=== PATIENT | male | born 1960 | race African-American/Black ===

== ENCOUNTER 2016-11-04 14:10 | Inpatient (IN) ==
[2016-11-04] MEDS ORDERED: Ipratropium/Albuterol Neb 3 ML IH ONE (14:13)
--- NOTE | 2016-11-04 14:14 | Emergency Department Note ---
Disposition Clinical Impression: Sepsis, Pneumonia Disposition: Admitted As Inpatient General Adult HPI - General Chief complaint: ED Shortness of Breath/Dyspnea Stated complaint: sob Time Seen by Provider: 11/04/16 14:11 - Related Data Home Medications Medication Instructions Recorded Confirmed Buspirone HCl [Buspar] 7.5 mg PO BID 04/21/16 11/04/16 Gabapentin 600 mg PO TID 04/21/16 11/04/16 SUMAtriptan Succinate [Imitrex] 100 mg PO DAILY PRN 04/21/16 11/04/16 lamoTRIgine [Lamictal] 75 mg PO BID 04/21/16 11/04/16 Ipratropium/Albuterol Neb [Duoneb] 3 ml IH Q6HR PRN 07/21/16 11/04/16 Tiotropium [Spiriva] 1 cap IH DAILY 07/21/16 11/04/16 Metoprolol Succinate 100 mg PO DAILY 09/05/16 11/04/16 Albuterol Sulfate [Albuterol 2 puff IH Q6H PRN 09/08/16 11/04/16 Inhaler] Budesonide/Formoterol 160/4.5 2 puff IH BIDR 09/08/16 11/04/16 [Symbicort 160/4.5] Temazepam [Restoril] 15 mg PO HS 09/14/16 11/04/16 Zolpidem [Ambien] 5 mg PO HS 09/14/16 11/04/16 OxyCODONE/APAP 10/325 [Percocet 1 each PO Q4HR PRN 10/22/16 11/04/16 10/325 MG] Lidocaine/Prilocaine CREAM [Emla] 5 gm TP AD PRN 11/04/16 11/04/16 Previous Rx's Medication Instructions Recorded Dexamethasone [Decadron] 4 mg PO AD 10 Days 09/28/16 Folic Acid 1 mg PO DAILY #30 tablet 09/28/16 Loratadine [Claritin] 10 mg PO AD #60 tablet 09/28/16 Omeprazole [PriLOSEC] 20 mg PO DAILY #30 capsule 09/28/16 Ondansetron [Zofran] 8 mg PO Q8HR PRN #90 tablet 09/28/16 Prochlorperazine Maleate 10 mg PO Q6HR PRN #60 tablet 09/28/16 [Compazine] Oxymetazoline [Afrin] 15 spray NS AD PRN #1 bottle 10/06/16 Guaifenesin [Guaifenesin ER] 1,200 mg PO BID #60 tab.er.12h 10/22/16 OLANZapine [Zyprexa] 2.5 mg PO AD PRN #30 tablet 11/03/16 Allergies Allergy/AdvReac Type Severity Reaction Status Date / Time doxycycline Allergy Rash Verified 10/22/16 16:08 hydrocodone [From Vicodin] Allergy Rash Verified 10/22/16 16:08 lidocaine Allergy Rash Verified 10/22/16 16:08 propoxyphene Allergy Rash Verified 10/22/16 16:08 [From Darvocet-N] morphine patches Allergy Intermediate Rash Uncoded 10/22/16 16:08 Past Medical History - Past Medical History Medical history: Reports: hyperlipidemia, hypertension, other, CVA, cancer, CHF , COPD Surgical history: Reports: herniorrhaphy, orthopedic, other Psychiatric history: Reports: anxiety, depression - Social History Smoking Status: Current every day smoker Smokeless Tobacco Status: No Alcohol use: Reports: occasionally Drug use: Reports: marijuana Course Vital Signs Temperature 98.4 F 11/04/16 14:12 Pulse Rate 94 11/04/16 14:12 Respiratory Rate 24 11/04/16 14:12 Blood Pressure 117/85 11/04/16 14:12 O2 Sat by Pulse Oximetry 95 11/04/16 14:12 Temperature 98.4 F 11/04/16 14:12 Pulse Rate 90 11/04/16 15:54 Respiratory Rate 22 11/04/16 16:30 Blood Pressure 98/73 11/04/16 16:30 O2 Sat by Pulse Oximetry 97 11/04/16 15:54 Oxygen Delivery Oxygen Delivery Nasal Cannula Medical Decision Making - Lab Data Result diagrams: 11/04/16 14:48 11/04/16 14:48 Lab Results 11/04/16 11/04/16 11/04/16 Range/Units 14:48 14:48 14:48 WBC 12.3 H (4.3-11.1) K/mcL RBC 4.90 (4.19-5.50) M/mcL Hgb 14.8 (12.9-16.9) g/dL Hct 44.5 (37.5-50.1) % MCV 90.8 (83.0-100.0) fL MCH 30.2 (28.0-33.3) pg MCHC 33.3 (31.6-35.5) g/dL RDW 13.1 (11.5-14.5) % Plt Count 265 (140-400) K/mcL MPV 9.2 L (9.4-12.4) fL Immature Gran % 0.3 (0-4) % Seg Neutrophils % 53.8 % Lymphocytes % 30.5 % Monocytes % 14.3 % Eosinophils % 0.7 % Basophils % 0.4 % Neutrophils # 6.6 (1.6-8.9) K/mcL Lymphocytes # 3.7 (0.6-4.6) K/mcL Monocytes # 1.8 H (0.0-1.3) K/mcL Eosinophils # 0.1 (0.0-0.6) K/mcL Basophils # 0.1 (0.0-0.2) K/mcL ABG pH (7.32-7.45) pH Units ABG pCO2 (35-45) mmHg ABG pO2 (85-104) mmHg ABG HCO3 (21-27) mEQ/L ABG Total CO2 (20-26) mEq/L ABG O2 Saturation (95-98) % ABG Base Excess (-2.0 to 3.0) mEq/L Liter Flow L/MIN Blood Gas Modality Inspired O2 % Sodium 138 (136-145) mEq/L Potassium 4.9 H (3.5-4.5) mEq/L Chloride 98 (98-109) mEq/L Carbon Dioxide 30 H (19-29) mEq/L BUN 10 (8-26) mg/dL Creatinine 0.85 (0.72-1.25) mg/dL Est GFR ( Amer) > 60 (> 60) Est GFR (Non-Af Amer) > 60 (> 60) BUN/Creatinine Ratio 12 (6-26) Glucose 100 H (70-99) mg/dL Calculated Osmolality 285 (280-300) Lactic Acid 0.9 (0.5-2.2) mmol/L Calcium 10.1 (8.6-10.8) mg/dL Total Bilirubin 0.5 (0.2-1.2) mg/dL Direct Bilirubin 0.2 (0.0-0.5) mg/dL Indirect Bilirubin 0.3 (0.0-1.2) mg/dL AST 13 (5-34) Units/L ALT 8 (0-55) Units/L Alkaline Phosphatase 82 (38-126) Units/L Troponin I (0-0.03) ng/mL B-Natriuretic Peptide (0-100) pg/mL Serum Total Protein 7.7 (6.0-8.3) g/dL Albumin 3.2 L (3.5-5.0) g/dL Globulin 4.5 H (2.4-3.5) g/dL Albumin/Globulin Ratio 0.7 L (1.1-2.2) 11/04/16 11/04/16 11/04/16 Range/Units 14:48 14:48 15:52 WBC (4.3-11.1) K/mcL RBC (4.19-5.50) M/mcL Hgb (12.9-16.9) g/dL Hct (37.5-50.1) % MCV (83.0-100.0) fL MCH (28.0-33.3) pg MCHC (31.6-35.5) g/dL RDW (11.5-14.5) % Plt Count (140-400) K/mcL MPV (9.4-12.4) fL Immature Gran % (0-4) % Seg Neutrophils % % Lymphocytes % % Monocytes % % Eosinophils % % Basophils % % Neutrophils # (1.6-8.9) K/mcL Lymphocytes # (0.6-4.6) K/mcL Monocytes # (0.0-1.3) K/mcL Eosinophils # (0.0-0.6) K/mcL Basophils # (0.0-0.2) K/mcL ABG pH 7.35 (7.32-7.45) pH Units ABG pCO2 57 H (35-45) mmHg ABG pO2 122 H (85-104) mmHg ABG HCO3 31.5 H (21-27) mEQ/L ABG Total CO2 33.2 H (20-26) mEq/L ABG O2 Saturation 99 H (95-98) % ABG Base Excess 4.2 H (-2.0 to 3.0) mEq/L Liter Flow 3 L/MIN Blood Gas Modality NC Inspired O2 32 % Sodium (136-145) mEq/L Potassium (3.5-4.5) mEq/L Chloride (98-109) mEq/L Carbon Dioxide (19-29) mEq/L BUN (8-26) mg/dL Creatinine (0.72-1.25) mg/dL Est GFR ( Amer) (> 60) Est GFR (Non-Af Amer) (> 60) BUN/Creatinine Ratio (6-26) Glucose (70-99) mg/dL Calculated Osmolality (280-300) Lactic Acid (0.5-2.2) mmol/L Calcium (8.6-10.8) mg/dL Total Bilirubin (0.2-1.2) mg/dL Direct Bilirubin (0.0-0.5) mg/dL Indirect Bilirubin (0.0-1.2) mg/dL AST (5-34) Units/L ALT (0-55) Units/L Alkaline Phosphatase (38-126) Units/L Troponin I 0.01 (0-0.03) ng/mL B-Natriuretic Peptide 104 H (0-100) pg/mL Serum Total Protein (6.0-8.3) g/dL Albumin (3.5-5.0) g/dL Globulin (2.4-3.5) g/dL Albumin/Globulin Ratio (1.1-2.2) Attestation Statement - Attestation Attestation: I examined this patient and my medical decision-making was reviewed with the SHRIMP PICKER/PA/Advanced Practice Nurse/Resident Physician. I agree with the documented findings, disposition and treatment plan as described except to the extent set forth below. [id number] time provided Patient complains of dyspnea. Arrives by EMS. Recently treated for pneumonia as an outpatient and has completed his antibiotic therapy. He appears in no acute distress on exam 17:00: 30 mL per KG of IV fluid not provided due to the patient not being hypotensive
--- NOTE | 2016-11-04 14:36 | Emergency Department Note ---
Disposition Clinical Impression: Sepsis Qualifiers: Sepsis type: sepsis due to unspecified organism Qualified Code(s): A41.9 - Sepsis, unspecified organism Pneumonia Qualifiers: Pneumonia type: due to unspecified organism Laterality: left Lung location: unspecified part of lung Qualified Code(s): J18.9 - Pneumonia, unspecified organism Disposition: Admitted As Inpatient Referrals: NO,PCP [Primary Care Provider] - Time of Disposition: 16:15 SOB HPI - General Chief Complaint: ED Shortness of Breath/Dyspnea Stated Complaint: sob Time Seen by Provider: 11/04/16 14:11 Source: patient, EMS Limitations: no limitations Nursing Notes Reviewed: Yes Vital Signs Reviewed: Yes - History of Present Illness Mr. Bliss, 56-year-old male, presents via EMS from [facility] where he is in the initial evaluation phase for suspected pulmonary cancer. He is here over concerns of dyspnea. Onset several weeks ago and acutely worsened just onset just prior to arrival. Patient has history of COPD with no use of home oxygen. He was diagnosed with community acquired pneumonia 2 weeks ago and is finished his 10 day outpatient course of an unknown antibiotic. PMH: Hypertension, hyperlipidemia, diabetes, CAD with ACS-no stents. COPD. CHF with unknown ejection fraction. Habits: Previous tobacco smoker. ROS: Positive: Subjective fever with chills, difficulty breathing, decreased appetite Negative: Chest pains, nausea, vomiting, back pains, palpitations, abdominal pains, unusual cough, productive cough, weakness, increased swelling or changes in weight. - Related Data Home Medications Medication Instructions Recorded Confirmed Buspirone HCl [Buspar] 7.5 mg PO BID 04/21/16 11/04/16 Gabapentin 600 mg PO TID 04/21/16 11/04/16 SUMAtriptan Succinate [Imitrex] 100 mg PO DAILY PRN 04/21/16 11/04/16 lamoTRIgine [Lamictal] 75 mg PO BID 04/21/16 11/04/16 Ipratropium/Albuterol Neb [Duoneb] 3 ml IH Q6HR PRN 07/21/16 11/04/16 Tiotropium [Spiriva] 1 cap IH DAILY 07/21/16 11/04/16 Metoprolol Succinate 100 mg PO DAILY 09/05/16 11/04/16 Albuterol Sulfate [Albuterol 2 puff IH Q6H PRN 09/08/16 11/04/16 Inhaler] Budesonide/Formoterol 160/4.5 2 puff IH BIDR 09/08/16 11/04/16 [Symbicort 160/4.5] Temazepam [Restoril] 15 mg PO HS 09/14/16 11/04/16 Zolpidem [Ambien] 5 mg PO HS 09/14/16 11/04/16 OxyCODONE/APAP 10/325 [Percocet 1 each PO Q4HR PRN 10/22/16 11/04/16 10/325 MG] Lidocaine/Prilocaine CREAM [Emla] 5 gm TP AD PRN 11/04/16 11/04/16 Previous Rx's Medication Instructions Recorded Dexamethasone [Decadron] 4 mg PO AD 10 Days 09/28/16 Folic Acid 1 mg PO DAILY #30 tablet 09/28/16 Loratadine [Claritin] 10 mg PO AD #60 tablet 09/28/16 Omeprazole [PriLOSEC] 20 mg PO DAILY #30 capsule 09/28/16 Ondansetron [Zofran] 8 mg PO Q8HR PRN #90 tablet 09/28/16 Prochlorperazine Maleate 10 mg PO Q6HR PRN #60 tablet 09/28/16 [Compazine] Oxymetazoline [Afrin] 15 spray NS AD PRN #1 bottle 10/06/16 Guaifenesin [Guaifenesin ER] 1,200 mg PO BID #60 tab.er.12h 10/22/16 OLANZapine [Zyprexa] 2.5 mg PO AD PRN #30 tablet 11/03/16 Allergies Allergy/AdvReac Type Severity Reaction Status Date / Time doxycycline Allergy Rash Verified 10/22/16 16:08 hydrocodone [From Vicodin] Allergy Rash Verified 10/22/16 16:08 lidocaine Allergy Rash Verified 10/22/16 16:08 propoxyphene Allergy Rash Verified 10/22/16 16:08 [From Darvocet-N] morphine patches Allergy Intermediate Rash Uncoded 10/22/16 16:08 All systems ED: reviewed and negative except as stated. Past Medical History - Past Medical History Medical history: Reports: hyperlipidemia, hypertension, other, CVA, cancer, CHF , COPD Surgical history: Reports: herniorrhaphy, orthopedic, other Psychiatric history: Reports: anxiety, depression - Social History Smoking Status: Current every day smoker Smokeless Tobacco Status: No Alcohol use: Reports: occasionally Drug use: Reports: marijuana Physical Exam Vital Signs Reviewed General: Patient is alert, oriented, and in no acute distress. HEENT: No facial asymmetry. Head is normocephalic and atraumatic. PERRLA. Trachea midline. Cardiovascular: Heart regular rate and rhythm without clicks, rubs, gallops, or murmurs. No JVD. PMI nondisplaced. No pedal edema. Respiratory: Symmetric chest rise with good respiratory effort. Bilateral breath sounds are have diffuse wheezing and crackles, worse bibasilar. Abdomen: Bowel sounds present normoactive x-4 quadrants. Abdomen is soft, nondistended, and nontender. Psych: Patient's affect is appropriate for situation. - General Limitations: no limitations General appearance: alert, in no apparent distress Course Course Narrative: Patient presents from the cancer center where he is currently in the evaluation phase for suspicious pulmonary nodules. He is concerned regarding difficulty breathing. He was diagnosed with ammonia 2 weeks ago and managed on an outpatient basis with oral antibiotics-unknown antibiotic. He is completed 10 day course. His symptoms have persisted and worsened. Chest x-ray shows worsening pneumonia. On intake, he was SIRS positive - tachypnea, tachycardic. Sepsis workup initiated. Will manage for healthcare associated pneumonia and admit. Will also again do a nebulizer as his wheezing on exam. Supple oxygen as needed. My attending spoke with the admitting hospitalist, Dr. Cantu, who agrees to accept the patient. Vital Signs Temperature 98.4 F 11/04/16 14:12 Pulse Rate 94 11/04/16 14:12 Respiratory Rate 24 11/04/16 14:12 Blood Pressure 117/85 11/04/16 14:12 O2 Sat by Pulse Oximetry 95 11/04/16 14:12 Temperature 98.4 F 11/04/16 14:12 Pulse Rate 90 11/04/16 15:54 Respiratory Rate 24 11/04/16 15:54 Blood Pressure 100/77 11/04/16 15:54 O2 Sat by Pulse Oximetry 97 11/04/16 15:54 Oxygen Delivery Oxygen Delivery Aerosol Mask Shortness of Breath/Dyspnea - Lab Data Result diagrams: 11/04/16 14:48 11/04/16 14:48 Lab Results 11/04/16 11/04/16 11/04/16 Range/Units 14:48 14:48 14:48 WBC 12.3 H (4.3-11.1) K/mcL RBC 4.90 (4.19-5.50) M/mcL Hgb 14.8 (12.9-16.9) g/dL Hct 44.5 (37.5-50.1) % MCV 90.8 (83.0-100.0) fL MCH 30.2 (28.0-33.3) pg MCHC 33.3 (31.6-35.5) g/dL RDW 13.1 (11.5-14.5) % Plt Count 265 (140-400) K/mcL MPV 9.2 L (9.4-12.4) fL Immature Gran % 0.3 (0-4) % Seg Neutrophils % 53.8 % Lymphocytes % 30.5 % Monocytes % 14.3 % Eosinophils % 0.7 % Basophils % 0.4 % Neutrophils # 6.6 (1.6-8.9) K/mcL Lymphocytes # 3.7 (0.6-4.6) K/mcL Monocytes # 1.8 H (0.0-1.3) K/mcL Eosinophils # 0.1 (0.0-0.6) K/mcL Basophils # 0.1 (0.0-0.2) K/mcL ABG pH (7.32-7.45) pH Units ABG pCO2 (35-45) mmHg ABG pO2 (85-104) mmHg ABG HCO3 (21-27) mEQ/L ABG Total CO2 (20-26) mEq/L ABG O2 Saturation (95-98) % ABG Base Excess (-2.0 to 3.0) mEq/L Liter Flow L/MIN Blood Gas Modality Inspired O2 % Sodium 138 (136-145) mEq/L Potassium 4.9 H (3.5-4.5) mEq/L Chloride 98 (98-109) mEq/L Carbon Dioxide 30 H (19-29) mEq/L BUN 10 (8-26) mg/dL Creatinine 0.85 (0.72-1.25) mg/dL Est GFR ( Amer) > 60 (> 60) Est GFR (Non-Af Amer) > 60 (> 60) BUN/Creatinine Ratio 12 (6-26) Glucose 100 H (70-99) mg/dL Calculated Osmolality 285 (280-300) Lactic Acid 0.9 (0.5-2.2) mmol/L Calcium 10.1 (8.6-10.8) mg/dL Total Bilirubin 0.5 (0.2-1.2) mg/dL Direct Bilirubin 0.2 (0.0-0.5) mg/dL Indirect Bilirubin 0.3 (0.0-1.2) mg/dL AST 13 (5-34) Units/L ALT 8 (0-55) Units/L Alkaline Phosphatase 82 (38-126) Units/L Troponin I (0-0.03) ng/mL B-Natriuretic Peptide (0-100) pg/mL Serum Total Protein 7.7 (6.0-8.3) g/dL Albumin 3.2 L (3.5-5.0) g/dL Globulin 4.5 H (2.4-3.5) g/dL Albumin/Globulin Ratio 0.7 L (1.1-2.2) 11/04/16 11/04/16 11/04/16 Range/Units 14:48 14:48 15:52 WBC (4.3-11.1) K/mcL RBC (4.19-5.50) M/mcL Hgb (12.9-16.9) g/dL Hct (37.5-50.1) % MCV (83.0-100.0) fL MCH (28.0-33.3) pg MCHC (31.6-35.5) g/dL RDW (11.5-14.5) % Plt Count (140-400) K/mcL MPV (9.4-12.4) fL Immature Gran % (0-4) % Seg Neutrophils % % Lymphocytes % % Monocytes % % Eosinophils % % Basophils % % Neutrophils # (1.6-8.9) K/mcL Lymphocytes # (0.6-4.6) K/mcL Monocytes # (0.0-1.3) K/mcL Eosinophils # (0.0-0.6) K/mcL Basophils # (0.0-0.2) K/mcL ABG pH 7.35 (7.32-7.45) pH Units ABG pCO2 57 H (35-45) mmHg ABG pO2 122 H (85-104) mmHg ABG HCO3 31.5 H (21-27) mEQ/L ABG Total CO2 33.2 H (20-26) mEq/L ABG O2 Saturation 99 H (95-98) % ABG Base Excess 4.2 H (-2.0 to 3.0) mEq/L Liter Flow 3 L/MIN Blood Gas Modality NC Inspired O2 32 % Sodium (136-145) mEq/L Potassium (3.5-4.5) mEq/L Chloride (98-109) mEq/L Carbon Dioxide (19-29) mEq/L BUN (8-26) mg/dL Creatinine (0.72-1.25) mg/dL Est GFR ( Amer) (> 60) Est GFR (Non-Af Amer) (> 60) BUN/Creatinine Ratio (6-26) Glucose (70-99) mg/dL Calculated Osmolality (280-300) Lactic Acid (0.5-2.2) mmol/L Calcium (8.6-10.8) mg/dL Total Bilirubin (0.2-1.2) mg/dL Direct Bilirubin (0.0-0.5) mg/dL Indirect Bilirubin (0.0-1.2) mg/dL AST (5-34) Units/L ALT (0-55) Units/L Alkaline Phosphatase (38-126) Units/L Troponin I 0.01 (0-0.03) ng/mL B-Natriuretic Peptide 104 H (0-100) pg/mL Serum Total Protein (6.0-8.3) g/dL Albumin (3.5-5.0) g/dL Globulin (2.4-3.5) g/dL Albumin/Globulin Ratio (1.1-2.2)
[2016-11-04] MEDS ORDERED: Azithromycin 500 MG in D5% in Water 250 ML IVPB ONE (14:54)
[2016-11-04 14:58] LABS: Basophils # 0.1 K/mcL (0.0-0.2); Basophils % 0.4 %; Eosinophils # 0.1 K/mcL (0.0-0.6); Eosinophils % 0.7 %; Hematocrit 44.5 % (37.5-50.1); Hemoglobin 14.8 g/dL (12.9-16.9); Immature Granulocytes % 0.3 % (0-4); Lymphocytes # 3.7 K/mcL (0.6-4.6); Lymphocytes % 30.5 %; Mean Corpuscular HGB Conc 33.3 g/dL (31.6-35.5); Mean Corpuscular Hemoglobin 30.2 pg (28.0-33.3); Mean Corpuscular Volume 90.8 fL (83.0-100.0); Mean Platelet Volume 9.2 fL (9.4-12.4); Monocytes # 1.8 K/mcL (0.0-1.3); Monocytes % 14.3 %; Neutrophils # 6.6 K/mcL (1.6-8.9); Platelet Count 265 K/mcL (140-400); Red Cell Distribution Width 13.1 % (11.5-14.5); Segmented Neutrophils % 53.8 %
[2016-11-04 15:11] LABS: Alanine Aminotransferase 8 Units/L (0-55); Albumin 3.2 g/dL (3.5-5.0); Albumin/Globulin Ratio 0.7 (1.1-2.2); Alkaline Phosphatase 82 Units/L (38-126); Aspartate Amino Transferase 13 Units/L (5-34); BUN/Creatinine Ratio 12 (6-26); Bilirubin,Direct 0.2 mg/dL (0.0-0.5); Bilirubin,Indirect 0.3 mg/dL (0.0-1.2); Bilirubin,Total 0.5 mg/dL (0.2-1.2); Blood Urea Nitrogen 10 mg/dL (8-26); Calcium 10.1 mg/dL (8.6-10.8); Carbon Dioxide 30 mEq/L (19-29); Chloride 98 mEq/L (98-109); Globulin 4.5 g/dL (2.4-3.5); Glucose 100 mg/dL (70-99); Osmolality,Calculated 285 (280-300); Potassium 4.9 mEq/L (3.5-4.5); Sodium 138 mEq/L (136-145); Total Protein 7.7 g/dL (6.0-8.3); eGFR For African Americans > 60 (> 60); eGFR For Non-African Americans > 60 (> 60)
[2016-11-04] MEDS ORDERED: Vancomycin 1,000 MG in D5% in Water 250 ML IVPB ONE (15:37)
[2016-11-04] MEDS ORDERED: methylPREDNISolone 125 MG/2 ML VIAL IVP ONE (15:37)
[2016-11-04] MEDS ORDERED: Piperacillin/Tazobactam 3.375 GM in D5% in Water (Mini-Bag+) 100 ML IVPB ONE (15:37)
[2016-11-04 15:58] LABS: ABG Base Excess 4.2 mEq/L (-2.0 to 3.0); ABG HCO3 31.5 mEQ/L (21-27); ABG Oxygen Saturation 99 % (95-98); ABG PCO2 57 mmHg (35-45); ABG PH 7.35 pH Units (7.32-7.45); ABG PO2 122 mmHg (85-104); ABG TCO2 33.2 mEq/L (20-26); Blood Gas FiO2 32 %; Blood Gas Liter Flow 3 L/MIN
[2016-11-04] MEDS ORDERED: *HR* Promethazine 25 MG/ML VIAL IVP PRN (16:19)
[2016-11-04] MEDS ORDERED: Naloxone 0.4 MG/ML INJ IVP PRN (16:19)
[2016-11-04] MEDS ORDERED: *HR* HYDROmorphone (PF) 1 MG/ML SYRINGE IVP ONE (16:31)
--- NOTE | 2016-11-04 16:40 | Internal Med History&Physical ---
<Raheel Cardenas - Last Filed: 11/04/16 20:02> Date of Encounter: 11/04/16 Time of Encounter: 16:38 Assessment and Plan (1) Acute respiratory failure Current visit: Yes Status: Acute Due to COPD exacerbation related to pneumonia. Saturation improved with supplemental oxygen, continue to supplement to keep saturation above 88%. Qualifiers: Respiratory failure complication: hypoxia Qualified Code(s): J96.01 - Acute respiratory failure with hypoxia (2) Sepsis Current visit: Yes Status: Acute Patient presents with leukocytosis and tachypnea with presumed source of pneumonia. Antibiotics initiated, blood cultures drawn, 30cc/kg fluid bolus ordered, initial lactate and repeat negative. Qualifiers: Sepsis type: sepsis due to unspecified organism Qualified Code(s): A41.9 - Sepsis, unspecified organism (3) Pneumonia Current visit: Yes Status: Acute Healthcare associated due to patient currently undergoing chemotherapy. Failed out patient therapy. Will treat with vancomycin, zosyn, levaquin. Strep and legionella urinary antigen, sputum culture ordered Qualifiers: Pneumonia type: due to unspecified organism Laterality: left Lung location: unspecified part of lung Qualified Code(s): J18.9 - Pneumonia, unspecified organism (4) COPD exacerbation Current visit: No Status: Acute Due to pneumonia as discussed above. Will treat with antibiotics, IV steroids, scheduled bronchodilators. (5) Primary lung cancer with metastasis from lung to other site Current visit: No Status: Acute Stage IV with brain mets, currently undergoing chemotherapy. Continue treatment as outpatient Qualifiers: Laterality: left Qualified Code(s): C34.92 - Malignant neoplasm of unspecified part of left bronchus or lung (6) Cancer associated pain Current visit: Yes Status: Acute Significant pain that has been difficult to control as an outpatient. Patient takes percocet 10/325mg q4h as outpatient. Using opiate equivalence and cross tolerance we will start IV dilaudid at 1mg q2h prn. Plan to transition to long acting pain management with breakthrough coverage based on pain needs. (7) Essential hypertension Current visit: No Status: Chronic Blood pressure mildly low, will hold home beta jade (8) DVT prophylaxis Current visit: No Status: Acute Lovenox 40mg SQ daily Internal Medicine - H&P: HPI Chief complaint: Dyspnea Admitted From: Emergency Dept Plans for Post Hospital Care: Home History of present illness: Mr. Bliss is a 56 year old male with history of stage IV lung cancer, COPD presents with shortness of breath. Patient reports shortness of breath and cough for the last 2 weeks. Patient presented to his oncologist approximately 10 days ago for chemotherapy and he was sent to the emergency department at that time due to concerns for pneumonia. Admission was recommended at that time the patient refused to be admitted and was discharged on Levaquin. He states that he felt better for a couple days but then continued to decline with worsening shortness of breath and productive cough. His cough is mostly clear but at times have had some thick yellow sputum. Past Med Surg Social Fam HX - Past Medical History Medical history: hyperlipidemia, hypertension, other, CVA, cancer, CHF, COPD Psychiatric history: anxiety, depression - Past Surgical History Surgical History: herniorrhaphy, orthopedic, other - Social History Smoking Status: Current every day smoker Smokeless Tobacco Status: No Alcohol use: occasionally Drug use: marijuana - Family History Father Adopted: No Family Member Ethnicity: Non- Living Status: Hx Family Cancer: Yes Internal Medicine - H&P: Meds Buspirone HCl [Buspar] 7.5 mg PO BID 04/21/16 [History] Gabapentin 600 mg PO TID 04/21/16 [History] SUMAtriptan Succinate [Imitrex] 100 mg PO DAILY PRN 04/21/16 [History] lamoTRIgine [Lamictal] 75 mg PO BID 04/21/16 [History] Ipratropium/Albuterol Neb [Duoneb] 3 ml IH Q6HR PRN 07/21/16 [History] Tiotropium [Spiriva] 1 cap IH DAILY 07/21/16 [History] Metoprolol Succinate 100 mg PO DAILY 09/05/16 [History] Albuterol Sulfate [Albuterol Inhaler] 2 puff IH Q6H PRN 09/08/16 [History] Budesonide/Formoterol 160/4.5 [Symbicort 160/4.5] 2 puff IH BIDR 09/08/16 [ History] Temazepam [Restoril] 15 mg PO HS 09/14/16 [History] Zolpidem [Ambien] 5 mg PO HS 09/14/16 [History] Dexamethasone [Decadron] 4 mg PO AD 10 Days 09/28/16 [Rx] Folic Acid 1 mg PO DAILY #30 tablet 09/28/16 [Rx] Loratadine [Claritin] 10 mg PO AD #60 tablet 09/28/16 [Rx] Omeprazole [PriLOSEC] 20 mg PO DAILY #30 capsule 09/28/16 [Rx] Ondansetron [Zofran] 8 mg PO Q8HR PRN #90 tablet 09/28/16 [Rx] Prochlorperazine Maleate [Compazine] 10 mg PO Q6HR PRN #60 tablet 09/28/16 [Rx] Oxymetazoline [Afrin] 15 spray NS AD PRN #1 bottle 10/06/16 [Rx] Guaifenesin [Guaifenesin ER] 1,200 mg PO BID #60 tab.er.12h 10/22/16 [Rx] OxyCODONE/APAP 10/325 [Percocet 10/325 MG] 1 each PO Q4HR PRN 10/22/16 [History] OLANZapine [Zyprexa] 2.5 mg PO AD PRN #30 tablet 11/03/16 [Rx] Lidocaine/Prilocaine CREAM [Emla] 5 gm TP AD PRN 11/04/16 [History] Allergies doxycycline Allergy (Verified 10/22/16 16:08) Rash hydrocodone [From Vicodin] Allergy (Verified 10/22/16 16:08) Rash lidocaine Allergy (Verified 10/22/16 16:08) Rash propoxyphene [From Darvocet-N] Allergy (Verified 10/22/16 16:08) Rash morphine patches Allergy (Intermediate, Uncoded 10/22/16 16:08) Rash All Systems PM: A 10-system review of systems was performed and is negative for pertinent findings except as documented above in the HPI. - Constitutional Constitutional: no chills, no fever(s) - EENT Eyes: no blurry vision, no change in vision Nose, mouth and throat: sinus pain, sinus pressure, no sore throat - Cardiovascular Cardiovascular ROS IM: dyspnea, dyspnea on exertion, no chest pain, no edema, no lightheadedness, no syncope - Respiratory Respiratory: cough, dyspnea, wheezing, chest congestion, excessive phlegm production, change in phlegm color, no hemoptysis - Gastrointestinal Gastrointestinal: no abdominal pain, no diarrhea, no nausea, no vomiting - Genitourinary Genitourinary ROS male: no urinary frequency, no urinary hesitancy, no urinary incontinence - Musculoskeletal Musculoskeletal ROS IM: arthralgias, no numbness, no tingling - Integumentary Integumentary IM: no new lesions - Neurological Neurological ROS: no confusion, no dizziness, no numbness, no weakness - Psychiatric Psychiatric: anxiety, no confusion - Constitutional Vitals: Temp Pulse Resp BP Pulse Ox 98.4 F 90 24 100/77 97 11/04/16 14:12 11/04/16 15:54 11/04/16 15:54 11/04/16 15:54 11/04/16 15:54 General appearance: Present: A&O X 3, pleasant, no acute distress Exam: Slightly somnolent. - Head Head exam: Present: atraumatic, normal inspection, normocephalic - Eye Eye exam: Present: EOMI, PERRL - ENT ENT exam: Present: mucous membranes dry - Respiratory Respiratory exam: Present: decreased breath sounds, rhonchi, wheezes. Absent: rales, tachypnea - Cardiovascular Cardiovascular exam: Present: RRR. Absent: gallop, rubs, systolic murmur - GI/Abdominal GI/Abdominal exam: Present: normal bowel sounds, soft. Absent: distended, tenderness - Extremities Exam Extremities exam: Present: warm. Absent: pedal edema, tenderness - Neurological Exam Neurological exam: Present: alert, CN II-XII intact, oriented X3, no focal deficits - Skin Skin exam: Present: dry, intact, warm Internal Med - H&P Results - Labs CBC & Chem 7: 11/04/16 14:48 11/04/16 14:48 <Celestine Stevens - Last Filed: 11/05/16 16:11> Date of Encounter: 11/04/16 Internal Medicine - H&P: HPI History of present illness: Mr. Bliss is a 56 year old male [employer] PM: A 10-system review of systems was performed and is negative for pertinent findings except as documented above in the HPI. - Constitutional Vitals: Temp Pulse Resp BP Pulse Ox 97.7 F 114 16 102/69 92 11/05/16 16:02 11/05/16 16:02 11/05/16 16:02 11/05/16 16:02 11/05/16 16:02 Internal Med - H&P Results - Labs CBC & Chem 7: 11/05/16 05:07 11/05/16 05:07 - Attending Attestation I examined this patient and my medical decision-making was reviewed with the Resident Physician on 11/04/16. I agree with the documented findings, disposition and treatment plan as described except to the extent set forth below. Please see event note of 11/04/16 for attestation.
[2016-11-04] MEDS ORDERED: Vancomycin 1,000 MG in D5% in Water 250 ML IVPB SCH (17:00)
[2016-11-04] MEDS: methylPREDNISolone 125 MG/2 ML VIAL IVP SCH (17:55)
[2016-11-04] MEDS ORDERED: 0.9 % Sodium Chloride 1,000 ML IVC ONE ×2 (18:14→20:05)
[2016-11-04] MEDS ORDERED: 0.9 % Sodium Chloride 1,000 ML IVC SCH (18:30)
[2016-11-04] MEDS ORDERED: Vancomycin 1,250 MG in D5% in Water 250 ML IVPB ONE (19:00)
--- NOTE | 2016-11-04 19:36 | Event Note ---
Date of Encounter: 11/04/16 Time of Encounter: 19:31 I examined this patient and my medical decision-making was reviewed with the Resident Physician on 11/04/16. I agree with the documented findings, disposition and treatment plan as described in the H&P of this date except to the extent set forth below. Mr. Bliss is currently admitted for acute exac COPD. He has hx of lung cancer. Symptoms have been present for about 2 weeks. He had been on Levaquin at home but continued to worsen and came to ED. He was subsequently admitted. Currently he is somewhat better with treatment. Exam Alert. Comfortable Heart reg and not tachy Wheezing present. Abd soft I/P 1. Acute on chronic resp failure with hypoxia 2. Sepsis 3. Lung cancer Further diagnoses and plan per H&P.
[2016-11-04] MEDS: Ipratropium/Albuterol Neb 3 ML IH SCH ×2 (19:53→23:09)
[2016-11-04] MEDS: Budesonide/Formoterol 160/4.5 MDI IH SCH (19:53)
[2016-11-04] MEDS: lamoTRIgine 25 MG TABLET PO SCH (20:17)
[2016-11-04] MEDS: Gabapentin 300 MG CAPSULE PO SCH (20:18)
[2016-11-04] MEDS ORDERED: Temazepam 15 MG CAPSULE PO SCH (21:00)
[2016-11-04] MEDS: *HR* HYDROmorphone (PF) 1 MG/ML SYRINGE IVP PRN (21:13)
[2016-11-04] MEDS: Levofloxacin 750 MG/150 ML 750 MG/150 ML BAG IVPB SCH (21:23)
[2016-11-05] MEDS: methylPREDNISolone 125 MG/2 ML VIAL IVP SCH ×4 (00:10→23:46)
[2016-11-05] MEDS: Piperacillin/Tazobactam 3.375 GM in D5% in Water (Mini-Bag+) 100 ML IVPB SCH ×3 (02:01→17:48)
[2016-11-05] MEDS: Ipratropium/Albuterol Neb 3 ML IH SCH ×6 (03:42→23:34)
[2016-11-05 05:28] LABS: Basophils % 0.2 %; Hematocrit 37.7 % (37.5-50.1); INR 1.3; Immature Granulocytes % 0.6 % (0-4); Lymphocytes # 1.3 K/mcL (0.6-4.6); Lymphocytes % 25.6 %; Mean Corpuscular HGB Conc 32.6 g/dL (31.6-35.5); Mean Corpuscular Hemoglobin 29.4 pg (28.0-33.3); Mean Corpuscular Volume 90.2 fL (83.0-100.0); Mean Platelet Volume 9.1 fL (9.4-12.4); Monocytes # 0.1 K/mcL (0.0-1.3); Monocytes % 1.6 %; Neutrophils # 3.5 K/mcL (1.6-8.9); Platelet Count 229 K/mcL (140-400); Prothrombin Time 14.3 Seconds (9.4-12.1); Red Blood Count 4.18 M/mcL (4.19-5.50)
[2016-11-05 05:31] LABS: Hemoglobin 12.3 g/dL (12.9-16.9)
[2016-11-05 05:41] LABS: Alanine Aminotransferase 7 Units/L (0-55); Albumin 2.6 g/dL (3.5-5.0); Albumin/Globulin Ratio 0.7 (1.1-2.2); Alkaline Phosphatase 71 Units/L (38-126); Aspartate Amino Transferase 11 Units/L (5-34); BUN/Creatinine Ratio 12 (6-26); Bilirubin,Direct 0.1 mg/dL (0.0-0.5); Bilirubin,Indirect 0.1 mg/dL (0.0-1.2); Bilirubin,Total 0.2 mg/dL (0.2-1.2); Blood Urea Nitrogen 10 mg/dL (8-26); Carbon Dioxide 27 mEq/L (19-29); Chloride 104 mEq/L (98-109); Globulin 3.9 g/dL (2.4-3.5); Glucose 219 mg/dL (70-99); Magnesium 1.5 mg/dL (1.6-2.6); Osmolality,Calculated 292 (280-300); Phosphorous 2.9 mg/dL (2.3-4.7); Potassium 4.2 mEq/L (3.5-4.5); Sodium 138 mEq/L (136-145); Total Protein 6.5 g/dL (6.0-8.3); eGFR For African Americans > 60 (> 60); eGFR For Non-African Americans > 60 (> 60)
[2016-11-05] MEDS: *HR* Enoxaparin 40 MG/0.4 ML SYRINGE SQ SCH (06:07)
[2016-11-05] MEDS: Gabapentin 300 MG CAPSULE PO SCH ×3 (08:03→20:24)
[2016-11-05] MEDS: lamoTRIgine 25 MG TABLET PO SCH ×2 (08:03→20:22)
[2016-11-05 08:04] LABS: Bilirubin,Urine Negative (Negative); Blood,Urine Negative (Negative); Clarity,Urine Clear (Clear); Color,Urine Yellow (Yellow); Glucose,Urine (UA) Normal (Normal); Ketones,Urine Negative (Negative); Leukocyte Esterase,Urine Negative (Negative); Nitrite,Urine Negative (Negative); PH,Urine 6.5 pH Units (5.0-8.0); Protein,Urine Negative (Neg-Trace); Specific Gravity,Urine 1.009 (1.010-1.025); Urobilinogen,Urine Normal (Normal)
[2016-11-05] MEDS: Folic Acid 1 MG TABLET PO SCH (08:04)
[2016-11-05] MEDS: Vancomycin 1,000 MG in D5% in Water 250 ML IVPB SCH ×2 (08:04→17:49)
[2016-11-05] MEDS: Levofloxacin 750 MG/150 ML 750 MG/150 ML BAG IVPB SCH (08:04)
[2016-11-05] MEDS ORDERED: Magnesium Sulfate 2 GM in D5% in Water 100 ML IVPB ONE (08:17)
[2016-11-05] MEDS: *HR* HYDROmorphone (PF) 1 MG/ML SYRINGE IVP PRN (08:30)
[2016-11-05] MEDS: Budesonide/Formoterol 160/4.5 MDI IH SCH ×2 (08:32→19:59)
[2016-11-05] MEDS ORDERED: Metoprolol XL (24 HR) Succ 50 MG TAB.ER.24H PO SCH (09:00)
--- NOTE | 2016-11-05 09:56 | Internal Med Progress Note ---
<Raheel Cardenas - Last Filed: 11/05/16 09:54> Date of Encounter: 11/05/16 Time of Encounter: 09:54 - Assessment and plan (1) Acute respiratory failure Current Visit: Yes Status: Acute Assessment and plan: Improving. Continue oxygen supplementation. Qualifiers: Respiratory failure complication: hypoxia Qualified Code(s): J96.01 - Acute respiratory failure with hypoxia (2) Sepsis Current Visit: Yes Status: Resolved Assessment and plan: Respiratory rate and leukocytosis much improved. Discontinue fluids. Qualifiers: Sepsis type: sepsis due to unspecified organism Qualified Code(s): A41.9 - Sepsis, unspecified organism (3) Pneumonia Current Visit: Yes Status: Acute Assessment and plan: Clinically improving. Continue broad-spectrum coverage with vancomycin, Levaquin, and Zosyn. Strep and Legionella antigens are negative. Blood cultures pending. Qualifiers: Pneumonia type: due to unspecified organism Laterality: left Lung location: unspecified part of lung Qualified Code(s): J18.9 - Pneumonia, unspecified organism (4) COPD exacerbation Current Visit: No Status: Acute Assessment and plan: Air movement appears much improved today. Continue antibiotics as discussed above, continue bronchodilators, will decrease IV steroids to Solu-Medrol 60 mg every 8 hours. Continue Symbicort. (5) Primary lung cancer with metastasis from lung to other site Current Visit: No Status: Acute Qualifiers: Laterality: left Qualified Code(s): C34.92 - Malignant neoplasm of unspecified part of left bronchus or lung (6) Cancer associated pain Current Visit: Yes Status: Acute Assessment and plan: We will transition from IV pain medications to by mouth pain medications with a long-acting oxycodone with immediate release oxycodone for breakthrough. (7) Essential hypertension Current Visit: No Status: Chronic Assessment and plan: Stable. Continue to hold metoprolol. (8) DVT prophylaxis Current Visit: No Status: Acute Assessment and plan: Lovenox 40 mg subcutaneous daily. - Subjective Interval history: Patient seen and examined at bedside. Patient states that he feels better today. Still having mild coughing spells. Denies any fevers or chills. - Constitutional Vitals: Temp Pulse Resp BP Pulse Ox 97.7 F 83 18 118/63 99 11/05/16 01:40 11/05/16 01:40 11/05/16 03:42 11/05/16 01:40 11/05/16 03:42 General appearance: Present: A&O X 3, pleasant, no acute distress - Respiratory Respiratory exam: Present: rhonchi (Left lower lobe ), wheezes (Diffuse bilaterally) - Cardiovascular Cardiovascular exam: Present: RRR. Absent: gallop, rubs, systolic murmur, tachycardia - GI/Abdominal GI/Abdominal exam: Present: normal bowel sounds, soft. Absent: distended, tenderness - Extremities Exam Extremities exam: Present: warm. Absent: pedal edema, tenderness - Neurological Exam Neurological exam: Present: alert, CN II-XII intact, oriented X3, no focal deficits Internal Medicine: Result - Labs CBC & Chem 7: 11/05/16 05:07 11/05/16 05:07 - ABG Interpretation ABG results: ABG ABG pH 7.35 pH Units (7.32-7.45) 11/04/16 15:52 ABG pCO2 57 mmHg (35-45) H 11/04/16 15:52 ABG pO2 122 mmHg (85-104) H 11/04/16 15:52 ABG O2 Saturation 99 % (95-98) H 11/04/16 15:52 PT/INR, D-dimer PT 14.3 Seconds (9.4-12.1) H 11/05/16 05:07 Consult Discharge Plan - Plan Referrals: NO,PCP [Non-Partnered Physician] - Shabana Llamas DO [Resident] - 11/12/16 3:00 pm <Celestine Stevens - Last Filed: 11/05/16 19:00> Date of Encounter: 11/05/16 - Assessment and plan (1) Acute respiratory failure Current Visit: Yes Status: Acute Qualifiers: Respiratory failure complication: hypoxia Qualified Code(s): J96.01 - Acute respiratory failure with hypoxia (2) Sepsis Current Visit: Yes Status: Resolved Qualifiers: Sepsis type: sepsis due to unspecified organism Qualified Code(s): A41.9 - Sepsis, unspecified organism (3) Pneumonia Current Visit: Yes Status: Acute Qualifiers: Pneumonia type: due to unspecified organism Laterality: left Lung location: unspecified part of lung Qualified Code(s): J18.9 - Pneumonia, unspecified organism (4) COPD exacerbation Current Visit: No Status: Acute (5) Primary lung cancer with metastasis from lung to other site Current Visit: No Status: Acute Qualifiers: Laterality: left Qualified Code(s): C34.92 - Malignant neoplasm of unspecified part of left bronchus or lung (6) GERD (gastroesophageal reflux disease) Current Visit: No Status: Chronic Qualifiers: Esophagitis presence: esophagitis presence not specified Qualified Code(s) : K21.9 - Gastro-esophageal reflux disease without esophagitis (7) Essential hypertension Current Visit: No Status: Chronic (8) Cancer associated pain Current Visit: Yes Status: Acute - Constitutional Vitals: Temp Pulse Resp BP Pulse Ox 97.7 F 114 24 102/69 97 11/05/16 16:02 11/05/16 16:02 11/05/16 16:31 11/05/16 16:02 11/05/16 16:51 Internal Medicine: Result - Labs CBC & Chem 7: 11/05/16 05:07 11/05/16 05:07 - ABG Interpretation ABG results: ABG ABG pH 7.35 pH Units (7.32-7.45) 11/04/16 15:52 ABG pCO2 57 mmHg (35-45) H 11/04/16 15:52 ABG pO2 122 mmHg (85-104) H 11/04/16 15:52 ABG O2 Saturation 99 % (95-98) H 11/04/16 15:52 PT/INR, D-dimer PT 14.3 Seconds (9.4-12.1) H 11/05/16 05:07 - Attending Attestation I examined this patient and my medical decision-making was reviewed with the Resident Physician on 11/05/16. I agree with the documented findings, disposition and treatment plan as described except to the extent set forth below. Mr. Bliss is currently admitted for acute on chronic hypoxia and COPD. He remains moderate to high risk due to potential for worsening respiratory status. Mr. Bliss is feeling a little better. No new issues. No fever or chills. Coughing. Exam Alert. Comfortable Heart reg Less wheeze I/P 1. Hypoxia 2. COPD 3. PNA Further diagnoses and plan as above.
--- NOTE | 2016-11-05 10:25 | Electrocardiograph Report ---
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
[2016-11-05] MEDS: diazePAM 5 MG TABLET PO PRN (10:57)
[2016-11-05] MEDS: *HR* OxyCODONE ER (12 HR) 20 MG TABLET PO SCH ×2 (10:58→17:48)
[2016-11-05] MEDS: *HR* OxyCODONE/APAP 10/325 TABLET PO PRN ×2 (16:12→20:22)
[2016-11-05] MEDS: Metoprolol XL (24 HR) Succ 50 MG TAB.ER.24H PO SCH (17:48)
[2016-11-06] MEDS: diazePAM 5 MG TABLET PO PRN ×3 (01:59→19:34)
[2016-11-06] MEDS: Piperacillin/Tazobactam 3.375 GM in D5% in Water (Mini-Bag+) 100 ML IVPB SCH ×3 (01:59→18:46)
[2016-11-06] MEDS: Ipratropium/Albuterol Neb 3 ML IH SCH ×6 (03:32→23:08)
[2016-11-06 06:01] LABS: Basophils % 0.1 %; Hematocrit 35.8 % (37.5-50.1); Hemoglobin 11.8 g/dL (12.9-16.9); Immature Granulocytes % 0.6 % (0-4); Lymphocytes # 0.9 K/mcL (0.6-4.6); Lymphocytes % 5.2 %; Mean Corpuscular Hemoglobin 29.9 pg (28.0-33.3); Mean Corpuscular Volume 90.6 fL (83.0-100.0); Mean Platelet Volume 9.3 fL (9.4-12.4); Monocytes # 0.7 K/mcL (0.0-1.3); Monocytes % 3.8 %; Platelet Count 246 K/mcL (140-400); Red Blood Count 3.95 M/mcL (4.19-5.50); Segmented Neutrophils % 90.3 %
[2016-11-06 06:08] LABS: BUN/Creatinine Ratio 17 (6-26); Blood Urea Nitrogen 15 mg/dL (8-26); Calcium 9.3 mg/dL (8.6-10.8); Carbon Dioxide 27 mEq/L (19-29); Chloride 105 mEq/L (98-109); Glucose 272 mg/dL (70-99); Magnesium 1.8 mg/dL (1.6-2.6); Osmolality,Calculated 300 (280-300); Potassium 4.2 mEq/L (3.5-4.5); Sodium 140 mEq/L (136-145); eGFR For African Americans > 60 (> 60); eGFR For Non-African Americans > 60 (> 60)
[2016-11-06] MEDS: Vancomycin 1,000 MG in D5% in Water 250 ML IVPB SCH (06:29)
[2016-11-06] MEDS: *HR* Enoxaparin 40 MG/0.4 ML SYRINGE SQ SCH (06:29)
[2016-11-06] MEDS: *HR* OxyCODONE ER (12 HR) 20 MG TABLET PO SCH (06:31)
[2016-11-06] MEDS: Budesonide/Formoterol 160/4.5 MDI IH SCH ×2 (07:28→20:15)
[2016-11-06] MEDS: Gabapentin 300 MG CAPSULE PO SCH ×3 (07:31→20:45)
[2016-11-06] MEDS: Folic Acid 1 MG TABLET PO SCH (07:31)
[2016-11-06] MEDS: methylPREDNISolone 125 MG/2 ML VIAL IVP SCH ×3 (07:31→23:47)
[2016-11-06] MEDS: lamoTRIgine 25 MG TABLET PO SCH ×2 (07:31→20:44)
[2016-11-06] MEDS: Levofloxacin 750 MG/150 ML 750 MG/150 ML BAG IVPB SCH (07:36)
[2016-11-06] MEDS ORDERED: Vancomycin 500 MG in D5% in Water (Mini-Bag+) 100 ML IVPB ONE ×2 (08:34→10:05)
[2016-11-06] MEDS ORDERED: methylPREDNISolone 125 MG/2 ML VIAL IVP SCH (09:12)
[2016-11-06] MEDS ORDERED: *HR* OxyCODONE ER (12 HR) 10 MG TABLET PO ONE (09:26)
--- NOTE | 2016-11-06 09:49 | Internal Med Progress Note ---
<Raheel Cardenas Breanna - Last Filed: 11/06/16 09:47> Date of Encounter: 11/06/16 Time of Encounter: 09:47 - Assessment and plan (1) Acute respiratory failure Current Visit: Yes Status: Acute Assessment and plan: Improving. Continue oxygen supplementation. Will perform 6 minute walk test to qualify for patient for oxygen at home if necessary Qualifiers: Respiratory failure complication: hypoxia Qualified Code(s): J96.01 - Acute respiratory failure with hypoxia (2) Sepsis Current Visit: Yes Status: Resolved Assessment and plan: Respiratory rate and much improved. Leukocytosis is worsening but this is likely related to steroid use. Clinically the patient appears much improved. Qualifiers: Sepsis type: sepsis due to unspecified organism Qualified Code(s): A41.9 - Sepsis, unspecified organism (3) Pneumonia Current Visit: Yes Status: Acute Assessment and plan: Clinically improving. Continue broad-spectrum coverage with vancomycin, Levaquin, and Zosyn. Strep and Legionella antigens are negative. Blood cultures pending. Gram stain of sputum shows gram-positive cocci, awaiting final culture results. Qualifiers: Pneumonia type: due to unspecified organism Laterality: left Lung location: unspecified part of lung Qualified Code(s): J18.9 - Pneumonia, unspecified organism (4) COPD exacerbation Current Visit: No Status: Acute Assessment and plan: Air movement appears much improved today, still scattered wheezes. Continue antibiotics as discussed above, continue bronchodilators, continue IV steroids to Solu-Medrol 60 mg every 8 hours. Continue Symbicort. (5) Primary lung cancer with metastasis from lung to other site Current Visit: No Status: Acute Qualifiers: Laterality: left Qualified Code(s): C34.92 - Malignant neoplasm of unspecified part of left bronchus or lung (6) Cancer associated pain Current Visit: Yes Status: Acute Assessment and plan: Patient reports mild improvement with his pain control on the extended release OxyContin 20 mg twice a day but reports his pain level VII out of 10. It is still using Percocet for breakthrough pain. Will increase OxyContin to 30 mg twice a day and reassess. (7) Essential hypertension Current Visit: No Status: Chronic Assessment and plan: Stable. Metoprolol restarted. (8) DVT prophylaxis Current Visit: No Status: Acute Assessment and plan: Lovenox 40 mg subcutaneous daily. - Subjective Interval history: Patient seen and examined at bedside. Patient states that he feels better today. Minimal shortness of breath with exertion. Denies any fevers or chills. - Constitutional Vitals: Temp Pulse Resp BP Pulse Ox 97.6 F 105 24 137/85 99 11/06/16 07:09 11/06/16 07:46 11/06/16 07:28 11/06/16 07:09 11/06/16 07:41 General appearance: Present: A&O X 3, pleasant, no acute distress - Respiratory Respiratory exam: Present: wheezes (Diffuse, scattered). Absent: rales, respiratory distress, rhonchi, tachypnea - Cardiovascular Cardiovascular exam: Present: RRR. Absent: gallop, rubs, systolic murmur - GI/Abdominal GI/Abdominal exam: Present: normal bowel sounds, soft. Absent: distended, tenderness - Extremities Exam Extremities exam: Present: warm. Absent: pedal edema, tenderness - Neurological Exam Neurological exam: Present: alert, CN II-XII intact, oriented X3, no focal deficits Internal Medicine: Result - Labs CBC & Chem 7: 11/06/16 05:49 11/06/16 05:49 Labs: Short CBC 11/06/16 Range/Units 05:49 WBC 17.7 H D (4.3-11.1) K/mcL Hgb 11.8 L (12.9-16.9) g/dL Hct 35.8 L (37.5-50.1) % Plt Count 246 (140-400) K/mcL Neutrophils # 16.0 H (1.6-8.9) K/mcL BMP 11/06/16 05:49 Sodium 140 Potassium 4.2 Chloride 105 Carbon Dioxide 27 BUN 15 Creatinine 0.86 Glucose 272 H Calcium 9.3 - ABG Interpretation ABG results: ABG ABG pH 7.35 pH Units (7.32-7.45) 11/04/16 15:52 ABG pCO2 57 mmHg (35-45) H 11/04/16 15:52 ABG pO2 122 mmHg (85-104) H 11/04/16 15:52 ABG O2 Saturation 99 % (95-98) H 11/04/16 15:52 PT/INR, D-dimer PT 14.3 Seconds (9.4-12.1) H 11/05/16 05:07 Consult Discharge Plan - Plan Referrals: NO,PCP [Non-Partnered Physician] - Shabana Llamas DO [Resident] - 11/12/16 3:00 pm <Celestine Stevens - Last Filed: 11/06/16 19:07> Date of Encounter: 11/06/16 - Assessment and plan (1) Acute respiratory failure Current Visit: Yes Status: Acute Qualifiers: Respiratory failure complication: hypoxia Qualified Code(s): J96.01 - Acute respiratory failure with hypoxia (2) Sepsis Current Visit: Yes Status: Resolved Qualifiers: Sepsis type: sepsis due to unspecified organism Qualified Code(s): A41.9 - Sepsis, unspecified organism (3) Pneumonia Current Visit: Yes Status: Acute Qualifiers: Pneumonia type: due to unspecified organism Laterality: left Lung location: unspecified part of lung Qualified Code(s): J18.9 - Pneumonia, unspecified organism (4) COPD exacerbation Current Visit: No Status: Acute (5) Primary lung cancer with metastasis from lung to other site Current Visit: No Status: Acute Qualifiers: Laterality: left Qualified Code(s): C34.92 - Malignant neoplasm of unspecified part of left bronchus or lung (6) GERD (gastroesophageal reflux disease) Current Visit: No Status: Chronic Qualifiers: Esophagitis presence: esophagitis presence not specified Qualified Code(s) : K21.9 - Gastro-esophageal reflux disease without esophagitis (7) Essential hypertension Current Visit: No Status: Chronic (8) Cancer associated pain Current Visit: Yes Status: Acute - Constitutional Vitals: Temp Pulse Resp BP Pulse Ox 97.9 F 101 18 165/70 99 11/06/16 15:07 11/06/16 15:20 11/06/16 15:59 11/06/16 15:07 11/06/16 15:59 Internal Medicine: Result - Labs CBC & Chem 7: 11/06/16 05:49 11/06/16 05:49 Labs: Short CBC 11/06/16 Range/Units 05:49 WBC 17.7 H D (4.3-11.1) K/mcL Hgb 11.8 L (12.9-16.9) g/dL Hct 35.8 L (37.5-50.1) % Plt Count 246 (140-400) K/mcL Neutrophils # 16.0 H (1.6-8.9) K/mcL BMP 11/06/16 05:49 Sodium 140 Potassium 4.2 Chloride 105 Carbon Dioxide 27 BUN 15 Creatinine 0.86 Glucose 272 H Calcium 9.3 - ABG Interpretation ABG results: ABG ABG pH 7.35 pH Units (7.32-7.45) 11/04/16 15:52 ABG pCO2 57 mmHg (35-45) H 11/04/16 15:52 ABG pO2 122 mmHg (85-104) H 11/04/16 15:52 ABG O2 Saturation 99 % (95-98) H 11/04/16 15:52 PT/INR, D-dimer PT 14.3 Seconds (9.4-12.1) H 11/05/16 05:07 - Attending Attestation I examined this patient and my medical decision-making was reviewed with the Resident Physician on 11/06/16. I agree with the documented findings, disposition and treatment plan as described except to the extent set forth below. Mr. Bliss is currently admitted for hypoxic resp failure. He is high risk due to potential for worsening resp status. Mr. Bliss is slowly improving. No new issues. He did qualify for oxygen. Pain is somewhat better. Exam Alert Comfortable Heart reg Lungs diminished I/P 1. Hypoxia 2. COPD Further diagnoses and plan as above.
[2016-11-06] MEDS ORDERED: Aminoglycoside Consult 1 EACH MC ONE (11:25)
[2016-11-06] MEDS: *HR* OxyCODONE ER (12 HR) 10 MG TABLET PO SCH (18:45)
[2016-11-06] MEDS: Metoprolol XL (24 HR) Succ 50 MG TAB.ER.24H PO SCH (18:45)
[2016-11-06] MEDS: Vancomycin 1,500 MG in D5% in Water 250 ML IVPB SCH (18:45)
[2016-11-06] MEDS: *HR* OxyCODONE/APAP 10/325 TABLET PO PRN (19:33)
[2016-11-07] MEDS: Piperacillin/Tazobactam 3.375 GM in D5% in Water (Mini-Bag+) 100 ML IVPB SCH (02:02)
[2016-11-07 03:10] LABS: Basophils % 0.1 %; Hematocrit 33.6 % (37.5-50.1); Hemoglobin 11.1 g/dL (12.9-16.9); Lymphocytes # 0.8 K/mcL (0.6-4.6); Lymphocytes % 4.4 %; Mean Corpuscular Hemoglobin 30.2 pg (28.0-33.3); Mean Corpuscular Volume 91.6 fL (83.0-100.0); Mean Platelet Volume 9.2 fL (9.4-12.4); Monocytes # 0.7 K/mcL (0.0-1.3); Monocytes % 3.5 %; Platelet Count 257 K/mcL (140-400); Red Blood Count 3.67 M/mcL (4.19-5.50); Red Cell Distribution Width 13.1 % (11.5-14.5)
[2016-11-07] MEDS: Ipratropium/Albuterol Neb 3 ML IH SCH ×2 (04:21→08:06)
[2016-11-07] MEDS: *HR* Enoxaparin 40 MG/0.4 ML SYRINGE SQ SCH (06:08)
[2016-11-07] MEDS: *HR* OxyCODONE ER (12 HR) 10 MG TABLET PO SCH (06:08)
[2016-11-07] MEDS: Vancomycin 1,500 MG in D5% in Water 250 ML IVPB SCH (06:53)
[2016-11-07 08:13] VITALS: BP 159/97
[2016-11-07] MEDS: lamoTRIgine 25 MG TABLET PO SCH (08:53)
[2016-11-07] MEDS: Gabapentin 300 MG CAPSULE PO SCH (08:53)
[2016-11-07] MEDS: diazePAM 5 MG TABLET PO PRN (08:58)
[2016-11-07] MEDS: Folic Acid 1 MG TABLET PO SCH (10:08)
[2016-11-07] MEDS ORDERED: predniSONE 20 MG TABLET PO ONE (10:21)
--- NOTE | 2016-11-07 10:29 | Discharge Summary ---
Date of Encounter: 11/07/16 Time of Encounter: 10:17 - Discharge Diagnosis (1) Acute respiratory failure Priority: Primary Status: Acute Qualifiers: Respiratory failure complication: hypoxia Qualified Code(s): J96.01 - Acute respiratory failure with hypoxia (2) Sepsis Priority: Primary Status: Resolved Qualifiers: Sepsis type: sepsis due to unspecified organism Qualified Code(s): A41.9 - Sepsis, unspecified organism (3) Pneumonia Priority: Primary Status: Acute Qualifiers: Pneumonia type: due to unspecified organism Laterality: left Lung location: unspecified part of lung Qualified Code(s): J18.9 - Pneumonia, unspecified organism (4) COPD exacerbation Priority: Primary Status: Acute (5) Primary lung cancer with metastasis from lung to other site Priority: Secondary Status: Chronic Qualifiers: Laterality: left Qualified Code(s): C34.92 - Malignant neoplasm of unspecified part of left bronchus or lung (6) GERD (gastroesophageal reflux disease) Priority: Secondary Status: Chronic Qualifiers: Esophagitis presence: esophagitis presence not specified Qualified Code(s) : K21.9 - Gastro-esophageal reflux disease without esophagitis (7) Essential hypertension Priority: Secondary Status: Chronic (8) Cancer associated pain Priority: Secondary Status: Chronic (9) Tobacco abuse Priority: Secondary Status: Chronic - Discharge Medications Prescriptions: OxyCODONE ER (12 HR) [OxyCONTIN] 30 mg PO Q12HR #30 tab.er.12h diazePAM [Valium] 10 mg PO BID PRN #30 tablet PRN Reason: Anxiety predniSONE [PredniSONE] 10 mg PO DAILY #30 tablet Sulfamethoxazole/Trimeth DS [Bactrim DS] 1 each PO BID #20 tablet Home Medications: Buspirone HCl [Buspar] 7.5 mg PO BID 04/21/16 [History] Gabapentin 600 mg PO TID 04/21/16 [History] SUMAtriptan Succinate [Imitrex] 100 mg PO DAILY PRN 04/21/16 [History] lamoTRIgine [Lamictal] 75 mg PO BID 04/21/16 [History] Ipratropium/Albuterol Neb [Duoneb] 3 ml IH Q6HR PRN 07/21/16 [History] Tiotropium [Spiriva] 1 cap IH DAILY 07/21/16 [History] Metoprolol Succinate 100 mg PO DAILY 09/05/16 [History] Albuterol Sulfate [Albuterol Inhaler] 2 puff IH Q6H PRN 09/08/16 [History] Budesonide/Formoterol 160/4.5 [Symbicort 160/4.5] 2 puff IH BIDR 09/08/16 [ History] Zolpidem [Ambien] 5 mg PO HS 09/14/16 [History] Folic Acid 1 mg PO DAILY #30 tablet 09/28/16 [Rx] Loratadine [Claritin] 10 mg PO AD #60 tablet 09/28/16 [Rx] Omeprazole [PriLOSEC] 20 mg PO DAILY #30 capsule 09/28/16 [Rx] Ondansetron [Zofran] 8 mg PO Q8HR PRN #90 tablet 09/28/16 [Rx] Prochlorperazine Maleate [Compazine] 10 mg PO Q6HR PRN #60 tablet 09/28/16 [Rx] Oxymetazoline [Afrin] 15 spray NS AD PRN #1 bottle 10/06/16 [Rx] Guaifenesin [Guaifenesin ER] 1,200 mg PO BID #60 tab.er.12h 10/22/16 [Rx] OxyCODONE/APAP 10/325 [Percocet 10/325 MG] 1 each PO Q4HR PRN 10/22/16 [History] OLANZapine [Zyprexa] 2.5 mg PO AD PRN #30 tablet 11/03/16 [Rx] Lidocaine/Prilocaine CREAM [Emla] 5 gm TP AD PRN 11/04/16 [History] OxyCODONE ER (12 HR) [OxyCONTIN] 30 mg PO Q12HR #30 tab.er.12h 11/07/16 [Rx] Sulfamethoxazole/Trimeth DS [Bactrim DS] 1 each PO BID #20 tablet 11/07/16 [Rx] diazePAM [Valium] 10 mg PO BID PRN #30 tablet 11/07/16 [Rx] predniSONE [PredniSONE] 10 mg PO DAILY #30 tablet 11/07/16 [Rx] Allergies/Adverse Reactions: Allergies doxycycline Allergy (Verified 10/22/16 16:08) Rash hydrocodone [From Vicodin] Allergy (Verified 10/22/16 16:08) Rash lidocaine Allergy (Verified 10/22/16 16:08) Rash propoxyphene [From Darvocet-N] Allergy (Verified 10/22/16 16:08) Rash morphine patches Allergy (Intermediate, Uncoded 10/22/16 16:08) Rash Date of admission: 11/05/16 08:49 Primary care physician: Raheel Cardenas, Discharging clinician: Celestine Stevens Anticipated date of discharge: 11/07/16 - Patient Status Disposition: Home, Self-Care Condition: Fair Functional capacity at discharge: independent ambulation Overall status at discharge: patient is progressing back to baseline - Discharge Instructions Instructions: Sulfamethoxazole/Trimethoprim (By mouth), Diazepam (By mouth), Prednisone (By mouth), Oxycodone, Slow Release (By mouth), Pneumonia (DC) Follow Up With: JOVANNA,PCP [Non-Partnered Physician] - Shabana Llamas DO [Resident] - 11/12/16 3:00 pm - Diet and Activity Activity: resume usual activities as tolerated Diet: advance to your usual diet Hospital course: Mr. Bliss is a 56 year old male with history of COPD and lung cancer presented to ED with increased dyspnea and cough. He had been seen recently and started on PO abx. He continued to have issues and subsequently was admitted. Mr. Bliss was admitted to [facility] with significant respiratory distress. He was on bipap, oxygen, abx and steroids. He was slowly able to be weaned from bipap and then down on oxygen. His abx were continued and steroids were decreased. He had significant pain so his pain medications were adjusted. He qualified for home oxygen. On 11/07 he was afebrile and stable for discharge home. - Time Spent with Patient Total time spent providing and/or coordinating discharge services: 42min - Constitutional Vitals: Temp Pulse Resp BP Pulse Ox 97.7 F 103 22 159/97 96 11/07/16 08:11 11/07/16 08:11 11/07/16 08:11 11/07/16 08:11 11/07/16 08:11 General appearance: Present: A&O X 3, pleasant - Head Head exam: Present: normocephalic - Eye Eye exam: Present: conjuntiva pink - ENT ENT exam: Present: mucous membranes moist - Respiratory Respiratory exam: Present: decreased breath sounds, wheezes - Cardiovascular Cardiovascular exam: Present: RRR. Absent: tachycardia - GI/Abdominal GI/Abdominal exam: Present: soft. Absent: tenderness - Extremities Exam Extremities exam: Present: warm. Absent: tenderness - Neurological Exam Neurological exam: Present: alert, oriented X3 - Psychiatric Psychiatric exam: Present: normal affect, normal mood
[2016-11-07] MEDS: methylPREDNISolone 125 MG/2 ML VIAL IVP SCH (11:06)
== END 2016-11-07 11:26 | disposition home or self-care (01) | DRG 720 ==
LOC: 2NNU 14:10 → EMEROO 14:10 → SUATTDRO 16:06 → 2NNU 17:01
PROVIDERS: ADMIT Internal Medicine; ATTEND Internal Medicine

== ENCOUNTER 2016-11-19 22:25 | Inpatient (IN) ==
[2016-11-19] MEDS ORDERED: Ondansetron 4 MG/2 ML VIAL IVP ONE (23:30)
[2016-11-19] MEDS ORDERED: 0.9 % Sodium Chloride 1,000 ML IVC ONE ×2 (23:30→23:33)
[2016-11-19] MEDS ORDERED: *HR* HYDROmorphone (PF) 1 MG/ML SYRINGE IVP ONE (23:30)
[2016-11-19] MEDS ORDERED: 0.9 % Sodium Chloride 500 ML IVC ONE (23:33)
[2016-11-19] MEDS ORDERED: Piperacillin/Tazobactam 3.375 GM in D5% in Water (Mini-Bag+) 100 ML IVPB ONE (23:34)
[2016-11-19] MEDS ORDERED: Vancomycin 1,000 MG VIAL IVPB ONE (23:39)
[2016-11-19] MEDS ORDERED: Levofloxacin 750 MG/150 ML 750 MG/150 ML BAG IVPB ONE (23:39)
[2016-11-19 23:51] LABS: ABG Base Excess 6.1 mEq/L (-2.0 to 3.0); ABG HCO3 31.2 mEQ/L (21-27); ABG Oxygen Saturation 92 % (95-98); ABG PCO2 46 mmHg (35-45); ABG PH 7.44 pH Units (7.32-7.45); ABG PO2 62 mmHg (85-104); ABG TCO2 32.6 mEq/L (20-26); Blood Gas Liter Flow 1.5 L/MIN
--- NOTE | 2016-11-20 00:07 | Emergency Department Note ---
Disposition Clinical Impression: HCAP (healthcare-associated pneumonia), Elevated troponin Sepsis Qualifiers: Sepsis type: sepsis due to unspecified organism Qualified Code(s): A41.9 - Sepsis, unspecified organism Lung cancer Qualifiers: Laterality: left Lung location: unspecified part of lung Qualified Code(s): C34.92 - Malignant neoplasm of unspecified part of left bronchus or lung Disposition: Admitted As Inpatient Condition: Critical Time of Disposition: 03:31 Abdominal Pain HPI - General Chief Complaint: ED Fever Stated Complaint: abdominal pain, cancer pt. Time Seen by Provider: 11/19/16 23:00 Source: patient, family Mode of arrival: ambulatory Limitations: no limitations Nursing Notes Reviewed: Yes Vital Signs Reviewed: Yes - History of Present Illness HPI Narrative: 56-year-old male with history of lung cancer, follows with Dr. Kendrick, presents with left lower quadrant abdominal pain, states that he has had pain for the last week or so. 8/10 LLQ pain aching. Also had intermittent fevers and chills. A few weeks ago he was here for sepsis and pneumonia. Patient was placed on by mouth antibiotics at home. Patient reports nausea, fevers chills, generalized weakness, recent weight loss. Pt Subjective Complaint: abdominal pain Consistency: intermittent Location: LLQ Pain Severity: moderate Pain Scale: 8 Quality: aching Radiation: none Improves with: nothing Worsens with: eating, vomiting Associated symptoms: Reports: nausea, vomiting, diarrhea - Related Data Home Medications Medication Instructions Recorded Confirmed Buspirone HCl [Buspar] 7.5 mg PO BID 04/21/16 11/04/16 Gabapentin 600 mg PO TID 04/21/16 11/04/16 SUMAtriptan Succinate [Imitrex] 100 mg PO DAILY PRN 04/21/16 11/04/16 lamoTRIgine [Lamictal] 75 mg PO BID 04/21/16 11/04/16 Ipratropium/Albuterol Neb [Duoneb] 3 ml IH Q6HR PRN 07/21/16 11/04/16 Tiotropium [Spiriva] 1 cap IH DAILY 07/21/16 11/04/16 Metoprolol Succinate 100 mg PO DAILY 09/05/16 11/04/16 Albuterol Sulfate [Albuterol 2 puff IH Q6H PRN 09/08/16 11/04/16 Inhaler] Budesonide/Formoterol 160/4.5 2 puff IH BIDR 09/08/16 11/04/16 [Symbicort 160/4.5] Zolpidem [Ambien] 5 mg PO HS 09/14/16 11/04/16 OxyCODONE/APAP 10/325 [Percocet 1 each PO Q4HR PRN 10/22/16 11/04/16 10/325 MG] Lidocaine/Prilocaine CREAM [Emla] 5 gm TP AD PRN 11/04/16 11/04/16 Previous Rx's Medication Instructions Recorded Folic Acid 1 mg PO DAILY #30 tablet 09/28/16 Loratadine [Claritin] 10 mg PO AD #60 tablet 09/28/16 Omeprazole [PriLOSEC] 20 mg PO DAILY #30 capsule 09/28/16 Ondansetron [Zofran] 8 mg PO Q8HR PRN #90 tablet 09/28/16 Prochlorperazine Maleate 10 mg PO Q6HR PRN #60 tablet 09/28/16 [Compazine] Oxymetazoline [Afrin] 15 spray NS AD PRN #1 bottle 10/06/16 Guaifenesin [Guaifenesin ER] 1,200 mg PO BID #60 tab.er.12h 10/22/16 OLANZapine [Zyprexa] 2.5 mg PO AD PRN #30 tablet 11/03/16 OxyCODONE ER (12 HR) [OxyCONTIN] 30 mg PO Q12HR #30 tab.er.12h 11/07/16 Sulfamethoxazole/Trimeth DS 1 each PO BID #20 tablet 11/07/16 [Bactrim DS] diazePAM [Valium] 10 mg PO BID PRN #30 tablet 11/07/16 predniSONE [PredniSONE] 10 mg PO DAILY #30 tablet 11/07/16 Allergies Allergy/AdvReac Type Severity Reaction Status Date / Time doxycycline Allergy Rash Verified 10/22/16 16:08 hydrocodone [From Vicodin] Allergy Rash Verified 10/22/16 16:08 lidocaine Allergy Rash Verified 10/22/16 16:08 propoxyphene Allergy Rash Verified 10/22/16 16:08 [From Darvocet-N] morphine patches Allergy Intermediate Rash Uncoded 10/22/16 16:08 All systems ED: reviewed and negative except as stated. Constitutional: Reports: as per HPI, fever, chills, weakness Cardiovascular: Reports: as per HPI, chest pain Respiratory: Reports: cough, dyspnea Gastrointestinal: Reports: as per HPI, abdominal pain, nausea, vomiting, diarrhea Abdominal Pain PMH - Past Medical History Medical history: Reports: hyperlipidemia, hypertension, other, CVA, cancer, CHF , COPD Male Surgical History: Reports: herniorrhaphy, orthopedic, other, other Psychiatric history: Reports: anxiety, depression - Social History Smoking status: Current every day smoker Alcohol use: Reports: none, occasionally Drug use: Reports: none, marijuana Physical Exam - General Limitations: altered mental status General appearance: lethargic, in distress - Head Head exam: atraumatic, normocephalic - Eye Eye exam: Present: normal appearance, PERRL - ENT ENT exam: normal exam, normal oropharynx - Neck Neck exam: Present: normal inspection, full ROM - Chest Chest inspection: Present: normal inspection - Respiratory Respiratory exam: Present: normal lung sounds bilaterally. Absent: respiratory distress - Cardiovascular Cardiovascular exam: Present: tachycardia - Abdominal Exam Abdominal exam: Present: soft, tenderness (mod to severe), distention. Absent: Non-Tender, guarding, rebound - Extremities Exam Extremities exam: Present: normal inspection - Back Exam Back exam: Present: normal inspection. Absent: full ROM - Neurological Exam Neurological exam: Present: alert, oriented X3, CN II-XII intact - Psychiatric Psychiatric exam: Present: depressed - Skin Skin exam: Present: warm, dry, intact Course Course Narrative: 48-year-old male with sepsis tachycardia and temperature 103.3, abdomen is mildly tender on exam, we will give a 30 mL per kg bolus of fluid, he does appear dehydrated added lactate basic lab work with ABG blood cultures we will start empiric coverage for age Given recent treatment for pneumonia. Suspect sepsis secondary to pneumonia or intra-abdominal source plan to get CT imaging of the abdomen and chest - Reevaluation(s) Reevaluation #1: Admitted to Dr Fair, CT Shows possible PNA, worsening lung cancer mass, ELevated trop likely demand, hypoxemi with compensation not acidemic, patient has no evidence of severe sepsis as he does not meet any criteria is normotensive, however he is still tachycardic, urination or he gets 2-1/2 L of fluids in the system prior to admission, he was admitted by the hospitalist. Definite sepsis with healthcare associated pneumonia and was started him on VancLevaquin and Zosyn Vital Signs Temperature 103.3 F H 11/19/16 23:11 Pulse Rate 140 11/19/16 23:11 Respiratory Rate 20 11/19/16 23:11 Blood Pressure 124/67 11/19/16 23:11 O2 Sat by Pulse Oximetry 92 11/19/16 23:11 Temperature 103.3 F H 11/19/16 23:11 Pulse Rate 140 11/19/16 23:11 Respiratory Rate 20 11/19/16 23:11 Blood Pressure 124/67 11/19/16 23:11 O2 Sat by Pulse Oximetry 92 11/19/16 23:11 Oxygen Delivery Oxygen Delivery Room Air Abdominal Pain - Differential Diagnosis Differential Diagnosis: Likely: abdominal pain non-specific, acute appendicitis , constipation, colonic obstruction, diverticulitis, gastroenteritis, ischemic bowel - Medical Records Medical records reviewed: Yes I reviewed the patient's medical records. - Lab Data Lab results reviewed: Yes I reviewed the patient's lab results. Result diagrams: 11/20/16 00:10 11/20/16 00:10 Lab Results 11/19/16 11/20/16 11/20/16 Range/Units 23:45 00:10 00:10 WBC 17.8 H (4.3-11.1) K/mcL RBC 4.21 (4.19-5.50) M/mcL Hgb 12.4 L (12.9-16.9) g/dL Hct 37.1 L (37.5-50.1) % MCV 88.1 (83.0-100.0) fL MCH 29.5 (28.0-33.3) pg MCHC 33.4 (31.6-35.5) g/dL RDW 13.5 (11.5-14.5) % Plt Count 253 (140-400) K/mcL MPV 9.3 L (9.4-12.4) fL Immature Gran % 0.7 (0-4) % Seg Neutrophils % 72.1 % Lymphocytes % 16.5 % Monocytes % 10.4 % Eosinophils % 0.2 % Basophils % 0.1 % Neutrophils # 12.8 H (1.6-8.9) K/mcL Lymphocytes # 3.0 (0.6-4.6) K/mcL Monocytes # 1.9 H (0.0-1.3) K/mcL Eosinophils # 0.0 (0.0-0.6) K/mcL Basophils # 0.0 (0.0-0.2) K/mcL Immature Plt Fraction 3.5 (1.1-6.1) % PT 14.1 H (9.4-12.1) Seconds INR 1.3 APTT 24.9 L (26.0-36.0) Seconds ABG pH 7.44 (7.32-7.45) pH Units ABG pCO2 46 H (35-45) mmHg ABG pO2 62 L (85-104) mmHg ABG HCO3 31.2 H (21-27) mEQ/L ABG Total CO2 32.6 H (20-26) mEq/L ABG O2 Saturation 92 L (95-98) % ABG Base Excess 6.1 H (-2.0 to 3.0) mEq/L Liter Flow 1.5 L/MIN Blood Gas Modality NC Sodium (136-145) mEq/L Potassium (3.5-4.5) mEq/L Chloride (98-109) mEq/L Carbon Dioxide (19-29) mEq/L BUN (8-26) mg/dL Creatinine (0.72-1.25) mg/dL Est GFR ( Amer) (> 60) Est GFR (Non-Af Amer) (> 60) BUN/Creatinine Ratio (6-26) Glucose (70-99) mg/dL Calculated Osmolality (280-300) Lactic Acid (0.5-2.2) mmol/L Calcium (8.6-10.8) mg/dL Phosphorus (2.3-4.7) mg/dL Magnesium (1.6-2.6) mg/dL Total Bilirubin (0.2-1.2) mg/dL Direct Bilirubin (0.0-0.5) mg/dL Indirect Bilirubin (0.0-1.2) mg/dL AST (5-34) Units/L ALT (0-55) Units/L Alkaline Phosphatase (38-126) Units/L Troponin I (0-0.03) ng/mL Serum Total Protein (6.0-8.3) g/dL Albumin (3.5-5.0) g/dL Globulin (2.4-3.5) g/dL Albumin/Globulin Ratio (1.1-2.2) Amylase (25-125) Units/L Lipase (8-78) Units/L 11/20/16 11/20/16 11/20/16 Range/Units 00:10 00:10 00:10 WBC (4.3-11.1) K/mcL RBC (4.19-5.50) M/mcL Hgb (12.9-16.9) g/dL Hct (37.5-50.1) % MCV (83.0-100.0) fL MCH (28.0-33.3) pg MCHC (31.6-35.5) g/dL RDW (11.5-14.5) % Plt Count (140-400) K/mcL MPV (9.4-12.4) fL Immature Gran % (0-4) % Seg Neutrophils % % Lymphocytes % % Monocytes % % Eosinophils % % Basophils % % Neutrophils # (1.6-8.9) K/mcL Lymphocytes # (0.6-4.6) K/mcL Monocytes # (0.0-1.3) K/mcL Eosinophils # (0.0-0.6) K/mcL Basophils # (0.0-0.2) K/mcL Immature Plt Fraction (1.1-6.1) % PT (9.4-12.1) Seconds INR APTT (26.0-36.0) Seconds ABG pH (7.32-7.45) pH Units ABG pCO2 (35-45) mmHg ABG pO2 (85-104) mmHg ABG HCO3 (21-27) mEQ/L ABG Total CO2 (20-26) mEq/L ABG O2 Saturation (95-98) % ABG Base Excess (-2.0 to 3.0) mEq/L Liter Flow L/MIN Blood Gas Modality Sodium 133 L (136-145) mEq/L Potassium 4.6 H (3.5-4.5) mEq/L Chloride 97 L (98-109) mEq/L Carbon Dioxide 25 (19-29) mEq/L BUN 17 (8-26) mg/dL Creatinine 0.82 (0.72-1.25) mg/dL Est GFR ( Amer) > 60 (> 60) Est GFR (Non-Af Amer) > 60 (> 60) BUN/Creatinine Ratio 21 (6-26) Glucose 100 H (70-99) mg/dL Calculated Osmolality 278 L (280-300) Lactic Acid 0.8 (0.5-2.2) mmol/L Calcium 10.0 (8.6-10.8) mg/dL Phosphorus (2.3-4.7) mg/dL Magnesium (1.6-2.6) mg/dL Total Bilirubin 0.6 (0.2-1.2) mg/dL Direct Bilirubin 0.3 (0.0-0.5) mg/dL Indirect Bilirubin 0.3 (0.0-1.2) mg/dL AST 24 (5-34) Units/L ALT 47 (0-55) Units/L Alkaline Phosphatase 126 (38-126) Units/L Troponin I 0.09 H* (0-0.03) ng/mL Serum Total Protein 7.2 (6.0-8.3) g/dL Albumin 3.0 L (3.5-5.0) g/dL Globulin 4.2 H (2.4-3.5) g/dL Albumin/Globulin Ratio 0.7 L (1.1-2.2) Amylase 27 (25-125) Units/L Lipase 6 L (8-78) Units/L // Range/Units 00:10 WBC (4.3-11.1) K/mcL RBC (4.19-5.50) M/mcL Hgb (12.9-16.9) g/dL Hct (37.5-50.1) % MCV (83.0-100.0) fL MCH (28.0-33.3) pg MCHC (31.6-35.5) g/dL RDW (11.5-14.5) % Plt Count (140-400) K/mcL MPV (9.4-12.4) fL Immature Gran % (0-4) % Seg Neutrophils % % Lymphocytes % % Monocytes % % Eosinophils % % Basophils % % Neutrophils # (1.6-8.9) K/mcL Lymphocytes # (0.6-4.6) K/mcL Monocytes # (0.0-1.3) K/mcL Eosinophils # (0.0-0.6) K/mcL Basophils # (0.0-0.2) K/mcL Immature Plt Fraction (1.1-6.1) % PT (9.4-12.1) Seconds INR APTT (26.0-36.0) Seconds ABG pH (7.32-7.45) pH Units ABG pCO2 (35-45) mmHg ABG pO2 (85-104) mmHg ABG HCO3 (21-27) mEQ/L ABG Total CO2 (20-26) mEq/L ABG O2 Saturation (95-98) % ABG Base Excess (-2.0 to 3.0) mEq/L Liter Flow L/MIN Blood Gas Modality Sodium (136-145) mEq/L Potassium (3.5-4.5) mEq/L Chloride (98-109) mEq/L Carbon Dioxide (19-29) mEq/L BUN (8-26) mg/dL Creatinine (0.72-1.25) mg/dL Est GFR ( Amer) (> 60) Est GFR (Non-Af Amer) (> 60) BUN/Creatinine Ratio (6-26) Glucose (70-99) mg/dL Calculated Osmolality (280-300) Lactic Acid (0.5-2.2) mmol/L Calcium (8.6-10.8) mg/dL Phosphorus 3.3 (2.3-4.7) mg/dL Magnesium 1.5 L (1.6-2.6) mg/dL Total Bilirubin (0.2-1.2) mg/dL Direct Bilirubin (0.0-0.5) mg/dL Indirect Bilirubin (0.0-1.2) mg/dL AST (5-34) Units/L ALT (0-55) Units/L Alkaline Phosphatase (38-126) Units/L Troponin I (0-0.03) ng/mL Serum Total Protein (6.0-8.3) g/dL Albumin (3.5-5.0) g/dL Globulin (2.4-3.5) g/dL Albumin/Globulin Ratio (1.1-2.2) Amylase (25-125) Units/L Lipase (8-78) Units/L - Radiology Data Radiology results reviewed: Yes I reviewed the patient's radiology results. 1 26 bpm ID [id number] QRS [address] segment elevations or depressions left axis , has tachycardia, his EKG reviewed and within normal limits as well 3 weeks ago similar EKG - EKG Data EKG attestation: Yes I reviewed and interpreted this EKG. EKG shows normal: sinus rhythm Rate: tachycardia Rhythm: NSR Steele/QRS: normal Interpretation: no acute changes - Core Measures AMI Core Measures Followed: No Attestation Statement - Attestation Attestation: I, Felipe Serna MD, personally evaluated this patient and discussed their management with the resident physician. I reviewed the resident's note and agree with the documented findings, medical decision making, and plan of care. Patient is a 56-year-old male who presents to the emergency department with a complaint of abdominal pain. Patient has recently diagnosed lung cancer but has not started chemotherapy yet because he was recently in the hospital bilateral pneumonia. He was discharged from the hospital about 2 weeks ago and states he has had abdominal pain since then but has gotten much worse over the past day or 2. He has also had intermittent chills and fever. Some vomiting. No GI bleed symptoms. No UTI symptoms. He also complains of some cough and shortness of breath. On examination patient is a well-developed well-nourished male in no acute distress but does appear to be in moderate discomfort. He is awake alert and oriented. There is no cyanosis or diaphoresis. Breath sounds are equal bilaterally with no definite rales or wheezes noted. Heart is regular with a moderate tachycardia. Abdomen is soft with present bowel sounds. Moderate diffuse tenderness. Labs reviewed. CT of the chest abdomen pelvis showed worsening of patient's lung cancer and metastasis with probable superimposed left pneumonia. The hospitalist, Dr. Fair, was consulted and accepted admission of the patient.
[2016-11-20 00:21] LABS: Basophils % 0.1 %; Eosinophils % 0.2 %; Hematocrit 37.1 % (37.5-50.1); Hemoglobin 12.4 g/dL (12.9-16.9); Immature Granulocytes % 0.7 % (0-4); Immature Platelets 3.5 % (1.1-6.1); Lymphocytes % 16.5 %; Mean Corpuscular HGB Conc 33.4 g/dL (31.6-35.5); Mean Corpuscular Hemoglobin 29.5 pg (28.0-33.3); Mean Corpuscular Volume 88.1 fL (83.0-100.0); Mean Platelet Volume 9.3 fL (9.4-12.4); Monocytes # 1.9 K/mcL (0.0-1.3); Monocytes % 10.4 %; Neutrophils # 12.8 K/mcL (1.6-8.9); Platelet Count 253 K/mcL (140-400); Red Blood Count 4.21 M/mcL (4.19-5.50); Red Cell Distribution Width 13.5 % (11.5-14.5); Segmented Neutrophils % 72.1 %
[2016-11-20 00:27] LABS: INR 1.3; Prothrombin Time 14.1 Seconds (9.4-12.1)
[2016-11-20 00:30] LABS: Activated Partial Thrombo Time 24.9 Seconds (26.0-36.0)
[2016-11-20 00:34] LABS: Magnesium 1.5 mg/dL (1.6-2.6); Phosphorous 3.3 mg/dL (2.3-4.7)
[2016-11-20 00:37] LABS: Alanine Aminotransferase 47 Units/L (0-55); Albumin/Globulin Ratio 0.7 (1.1-2.2); Alkaline Phosphatase 126 Units/L (38-126); Amylase 27 Units/L (25-125); Aspartate Amino Transferase 24 Units/L (5-34); BUN/Creatinine Ratio 21 (6-26); Bilirubin,Direct 0.3 mg/dL (0.0-0.5); Bilirubin,Indirect 0.3 mg/dL (0.0-1.2); Bilirubin,Total 0.6 mg/dL (0.2-1.2); Blood Urea Nitrogen 17 mg/dL (8-26); Carbon Dioxide 25 mEq/L (19-29); Chloride 97 mEq/L (98-109); Globulin 4.2 g/dL (2.4-3.5); Glucose 100 mg/dL (70-99); Lipase 6 Units/L (8-78); Osmolality,Calculated 278 (280-300); Potassium 4.6 mEq/L (3.5-4.5); Sodium 133 mEq/L (136-145); Total Protein 7.2 g/dL (6.0-8.3); eGFR For African Americans > 60 (> 60); eGFR For Non-African Americans > 60 (> 60)
[2016-11-20] MEDS ORDERED: Acetaminophen 325 MG TABLET PO PRN ×2 (03:31→14:07)
[2016-11-20] MEDS ORDERED: Ondansetron 4 MG/2 ML VIAL IVP PRN (03:31)
[2016-11-20] MEDS ORDERED: Naloxone 0.4 MG/ML INJ IVP PRN ×2 (03:31→14:07)
--- NOTE | 2016-11-20 03:36 | Internal Med History&Physical ---
Date of Encounter: 11/20/16 Time of Encounter: 03:15 Assessment and Plan (1) Sepsis Current visit: No Status: Acute Secondary to healthcare associated pneumonia Continue IV fluids, IV Zosyn, IV vancomycin, IV Levaquin Lactic acid is 0.8, white count 17.[address] chest shows overall progression of disease versus lung mass has increased in size, superimposed infection cannot be excluded worsening lymphadenopathy Labs in a.m. Qualifiers: Sepsis type: Streptococcus, unspecified Qualified Code(s): A40.9 - Streptococcal sepsis, unspecified; A40 - Streptococcal sepsis (2) Acute respiratory failure Current visit: No Status: Acute Acute on chronic hypoxic respiratory failure- secondary to acute COPD exacerbation, HCAP and lung cancer Continue DuoNeb breathing treatment, IV antibiotics O2 via nasal cannula, BiPAP as needed Qualifiers: Respiratory failure complication: hypoxia Qualified Code(s): J96.01 - Acute respiratory failure with hypoxia (3) HCAP (healthcare-associated pneumonia) Current visit: Yes Status: Acute Healthcare associated pneumonia, likely bacterial bacterial associated with COPD exacerbation and hypoxic respiratory failure with lung cancer General IV Zosyn, IV vancomycin, IV Levaquin (4) Elevated troponin Current visit: Yes Status: Acute Probable demand ischemia, will trend troponin Continue aspirin and statin (5) Primary lung cancer with metastasis from lung to other site Current visit: No Status: Chronic Undergoing chemotherapy Oncology consult Qualifiers: Qualified Code(s): C34.90 - Malignant neoplasm of unspecified part of unspecified bronchus or lung (6) Essential hypertension Current visit: No Status: Chronic Controlled, continue to monitor (7) CVA (cerebral vascular accident) Current visit: No Status: Chronic History of CVA, no obvious deficits Continue aspirin and statin Qualifiers: CVA mechanism: unspecified Qualified Code(s): I63.9 - Cerebral infarction, unspecified (8) Tobacco abuse Current visit: No Status: Chronic Counseled about cessation, nicotine patch (9) DVT prophylaxis Current visit: No Status: Acute Continue heparin subcutaneous Internal Medicine - H&P: HPI Chief complaint: Shortness of breath and cough Admitted From: Emergency Dept History of present illness: Mr. Bliss is a 56 year old male with past medical history of CVA, COPD, cancer , hypertension, hyperlipidemia and anxiety. Patient presents to the ED with complaints of shortness of breath and cough. Patient states he has shortness of breath almost constantly. But over the past few days symptoms have worsened. His is at bedside and states patient has also been complaining of abdominal pain. Patient thinks he may be constipated. Shortness of breath is present even at rest at times but worse with exertion. No alleviating factors. No other associated symptoms Patient states he has COPD, which is likely advanced and he also has lung cancer and is undergoing chemotherapy, has undergone one cycle of chemotherapy. Patient continues to smoke. Patient also complains of a chronic cough which is also worsened over the past few days. He is bringing up yellow colored sputum. Also complains of wheezing. Denies chest pain denies palpitations denies headache denies vomiting or diarrhea. Patient was admitted about 2 weeks ago for similar complaints. He was diagnosed with pneumonia and sepsis at the time. Patient's had recurrent episodes of pneumonia and sepsis in the recent past. On examination patient is awake and alert he is in mild distress from coughing and shortness of breath. Patient is tachycardic and has a fever. He is hemodynamically stable. Patient is being admitted for sepsis and COPD exacerbation and healthcare associated pneumonia. Patient and his have been explained about this guarded condition and guarded prognosis and plan of care. They understood and agreed. No unanswered questions. Past Med Surg Social Fam HX - Past Medical History Medical history: hyperlipidemia, hypertension, other, CVA, cancer, CHF, COPD Psychiatric history: anxiety, depression - Past Surgical History Surgical History: herniorrhaphy, orthopedic, other - Social History Smoking Status: Current every day smoker Smokeless Tobacco Status: No Alcohol use: none, occasionally Drug use: none, marijuana - Family History Father Adopted: No Family Member Ethnicity: Non- Living Status: Hx Family Cancer: Yes Internal Medicine - H&P: Meds Buspirone HCl [Buspar] 7.5 mg PO BID 04/21/16 [History] Gabapentin 600 mg PO TID 04/21/16 [History] SUMAtriptan Succinate [Imitrex] 100 mg PO DAILY PRN 04/21/16 [History] lamoTRIgine [Lamictal] 75 mg PO BID 04/21/16 [History] Ipratropium/Albuterol Neb [Duoneb] 3 ml IH Q6HR PRN 07/21/16 [History] Tiotropium [Spiriva] 1 cap IH DAILY 07/21/16 [History] Metoprolol Succinate 100 mg PO DAILY 09/05/16 [History] Albuterol Sulfate [Albuterol Inhaler] 2 puff IH Q6H PRN 09/08/16 [History] Budesonide/Formoterol 160/4.5 [Symbicort 160/4.5] 2 puff IH BIDR 09/08/16 [ History] Zolpidem [Ambien] 5 mg PO HS 09/14/16 [History] Folic Acid 1 mg PO DAILY #30 tablet 09/28/16 [Rx] Loratadine [Claritin] 10 mg PO AD #60 tablet 09/28/16 [Rx] Omeprazole [PriLOSEC] 20 mg PO DAILY #30 capsule 09/28/16 [Rx] Ondansetron [Zofran] 8 mg PO Q8HR PRN #90 tablet 09/28/16 [Rx] Prochlorperazine Maleate [Compazine] 10 mg PO Q6HR PRN #60 tablet 09/28/16 [Rx] Oxymetazoline [Afrin] 15 spray NS AD PRN #1 bottle 10/06/16 [Rx] Guaifenesin [Guaifenesin ER] 1,200 mg PO BID #60 tab.er.12h 10/22/16 [Rx] OxyCODONE/APAP 10/325 [Percocet 10/325 MG] 1 each PO Q4HR PRN 10/22/16 [History] OLANZapine [Zyprexa] 2.5 mg PO AD PRN #30 tablet 11/03/16 [Rx] Lidocaine/Prilocaine CREAM [Emla] 5 gm TP AD PRN 11/04/16 [History] OxyCODONE ER (12 HR) [OxyCONTIN] 30 mg PO Q12HR #30 tab.er.12h 11/07/16 [Rx] Sulfamethoxazole/Trimeth DS [Bactrim DS] 1 each PO BID #20 tablet 11/07/16 [Rx] diazePAM [Valium] 10 mg PO BID PRN #30 tablet 11/07/16 [Rx] predniSONE [PredniSONE] 10 mg PO DAILY #30 tablet 11/07/16 [Rx] Allergies doxycycline Allergy (Verified 10/22/16 16:08) Rash hydrocodone [From Vicodin] Allergy (Verified 10/22/16 16:08) Rash lidocaine Allergy (Verified 10/22/16 16:08) Rash propoxyphene [From Darvocet-N] Allergy (Verified 10/22/16 16:08) Rash morphine patches Allergy (Intermediate, Uncoded 10/22/16 16:08) Rash All Systems PM: A 10-system review of systems was performed and is negative for pertinent findings except as documented above in the HPI. - Constitutional Constitutional: fatigue, weakness - Cardiovascular Cardiovascular ROS IM: dyspnea, dyspnea on exertion, lightheadedness, orthopnea , no chest pain, no syncope - Respiratory Respiratory: cough, dyspnea, dyspnea on exertion, wheezing, pain on inspiration , chest congestion, excessive phlegm production, pain with cough - Gastrointestinal Gastrointestinal: abdominal pain, constipation, nausea, vomiting, no bloating, no cramping, no diarrhea - Musculoskeletal Musculoskeletal ROS IM: arthralgias - Neurological Neurological ROS: no abnormal gait, no abnormal speech, no dizziness, no focal weakness, no loss of vision - Constitutional Vitals: Temp Pulse Resp BP Pulse Ox 103.3 F H 140 20 124/67 92 11/19/16 23:11 11/19/16 23:11 11/19/16 23:11 11/19/16 23:11 11/19/16 23:11 General appearance: Present: A&O X 3, underweight, answers questions appropriately Exam: In mild distress due to shortness of breath and cough, chronically ill-appearing - Head Head exam: Present: atraumatic - Neck Neck exam general surgery: Present: supple - Respiratory Respiratory exam: Present: decreased breath sounds (Bilateral), rhonchi ( Bilateral), wheezes (Bilateral) - Cardiovascular Cardiovascular exam: Present: +S1, +S2, systolic murmur, tachycardia - GI/Abdominal GI/Abdominal exam: Present: soft, tenderness (Mild epigastric). Absent: distended, firm, guarding - Extremities Exam Extremities exam: Present: radial pulses palpable and symetrical. Absent: cyanotic, pedal edema - Neurological Exam Neurological exam: Present: alert, oriented X3, no focal deficits Internal Med - H&P Results - Labs CBC & Chem 7: 11/20/16 00:10 11/20/16 00:10 - Impressions ITS Impressions Abdomen/Pelvis CT 11/20/16 23:32 IMPRESSION: Overall progression of disease compared to the prior studies. The left lung mass has increased in size with worsening surrounding small airspace and nodular opacities. Superimposed infection cannot be excluded. In addition there is diffuse irregular septal thickening throughout the left lung which is suspicious for lymphangitic spread of tumor, increasing size of right pulmonary nodules, worsening mediastinal/supraclavicular lymphadenopathy, increasing size of bilateral adrenal lesion, new tiny hypodensity in the right hepatic lobe and increased retroperitoneal periaortic lymph nodes. D/ / Tr Dutta MD / Tr Dutta MD Interpreting Provider: Tr Dutta MD Chest CT 11/20/16 23:32
[2016-11-20] MEDS ORDERED: Loratadine 10 MG TABLET PO SCH ×2 (03:45→14:07)
[2016-11-20] MEDS ORDERED: 0.9 % Sodium Chloride 1,000 ML IVC SCH (03:45)
[2016-11-20] MEDS ORDERED: *HR* Dextrose 50 % in Water (Syg) 50 ML SYRINGE IVP PRN ×2 (03:51→14:07)
[2016-11-20] MEDS ORDERED: D5% in Water 1,000 ML IVC PRN ×2 (03:51→14:07)
[2016-11-20] MEDS ORDERED: Dextrose Gel 15 GM PO PRN ×4 (03:51→14:07)
[2016-11-20] MEDS: Ipratropium/Albuterol Neb 3 ML IH SCH ×5 (03:53→20:14)
[2016-11-20] MEDS ORDERED: 0.9 % Sodium Chloride 250 ML ONE (03:54)
[2016-11-20] MEDS ORDERED: Magnesium Sulfate 2 GM in D5% in Water 100 ML IVPB ONE (03:54)
[2016-11-20] MEDS ORDERED: Vancomycin (wt based) 1,000 MG VIAL IVPB SCH (04:00)
[2016-11-20 04:55] LABS: Basophils % 0.2 %; Eosinophils % 0.1 %; Hematocrit 31.5 % (37.5-50.1); Immature Granulocytes % 0.6 % (0-4); Lymphocytes # 2.7 K/mcL (0.6-4.6); Mean Corpuscular Hemoglobin 29.6 pg (28.0-33.3); Mean Corpuscular Volume 89.7 fL (83.0-100.0); Mean Platelet Volume 9.3 fL (9.4-12.4); Monocytes # 1.6 K/mcL (0.0-1.3); Monocytes % 10.7 %; Neutrophils # 10.5 K/mcL (1.6-8.9); Platelet Count 181 K/mcL (140-400); Red Blood Count 3.51 M/mcL (4.19-5.50); Red Cell Distribution Width 13.5 % (11.5-14.5); Segmented Neutrophils % 70.4 %
[2016-11-20 04:56] LABS: Hemoglobin 10.4 g/dL (12.9-16.9)
[2016-11-20] MEDS ORDERED: *HR* Morphine 2 MG/ML SYRINGE IVP PRN (05:01)
[2016-11-20 05:05] LABS: BUN/Creatinine Ratio 19 (6-26); Blood Urea Nitrogen 14 mg/dL (8-26); Carbon Dioxide 26 mEq/L (19-29); Chloride 101 mEq/L (98-109); Glucose 95 mg/dL (70-99); Magnesium 1.1 mg/dL (1.6-2.6); Osmolality,Calculated 276 (280-300); Potassium 4.1 mEq/L (3.5-4.5); Sodium 133 mEq/L (136-145); eGFR For African Americans > 60 (> 60); eGFR For Non-African Americans > 60 (> 60)
[2016-11-20 05:06] LABS: Calcium 8.4 mg/dL (8.6-10.8)
[2016-11-20] MEDS ORDERED: Famotidine 20 MG/2 ML VIAL IVP SCH (06:00)
[2016-11-20] MEDS ORDERED: *HR* Heparin 5,000 UNIT/ML VIAL SQ SCH ×2 (06:00→16:00)
[2016-11-20] MEDS ORDERED: Insulin LISPRO 300 UNITS/3 ML VIAL SQ SCH ×4 (06:00→21:00)
[2016-11-20] MEDS ORDERED: *HR* OxyCODONE/APAP 10/325 TABLET PO PRN (08:52)
--- NOTE | 2016-11-20 08:56 | Pulmonology Consult Note ---
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 Continue Vancomycin (day#1), Zosyn ( day#1). Discontinue Levaquin. Lungs with presence of bilateral rhonchi. Patient saturating 94% on 2L. Pain management for treatment of metastatic lung cancer. Cardiovascular: RRR. Systolic blood pressures are stable. GI/Nutrition/Electrolytes/Fluids: Cardiac diet GI Prophylaxis: Pepcid Renal: No evidence of ARMAAN, urine output 700mL in last 24 hours. ID: Leukocytosis with WBC 17. Continue Vanc, Zosyn. Discontinue Levaquin. Patient did not receive therapeutic doses of abx yesterday, therefore today will be day #1 of abx. Blood cultures x 2, pending. Sputum culture, pending. Heme/Onc: Hb 10.8. continue to monitor anemia. DVT Prophylaxis: Heparin SQ Endocrine: Blood sugars 90-100. Low-dose SS correction ACHS. Lines: All lines checked and no evidence of infections peripheral Skin: skin care to prevent pressure ulcers per nursing routine care. Code Status: Full Code (2) Sepsis Current Visit: Yes Status: Acute (3) Primary lung cancer with metastasis from lung to other site Current Visit: No Status: Chronic (4) Cancer associated pain Current Visit: Yes Status: Chronic (5) Elevated troponin Current Visit: Yes Status: Acute (6) Essential hypertension Current Visit: No Status: Chronic (7) GERD (gastroesophageal reflux disease) Current Visit: No Status: Chronic (8) Tobacco abuse Current Visit: Yes Status: Chronic (9) DVT prophylaxis Current Visit: No Status: Acute History of Present Illness Consult date: 11/20/16 Requesting physician: Cristofer Perez Reason for consult: pneumonia Chief complaint: sepsis, pneumonia History of present illness: Patient is a 56-year-old male with metastatic lung cancer who follows with Dr. Kendrick. Patient presented [facility] ED one day ago ith sepsis secondary to pneumonia. Patient had a CT chest which lung cancer. He had a temperature of 101.3 heart rate of 140,22, leukocytosis with WBC of 17. Patient did receive vancomycin 1, Zosyn 3.375 mg, and Levaquin 750 mg in the ED prior to admission to the ICU. He was continued on Vancomycin 1250mg q12hr, Zosyn 3.375mg q8hr, Levaquin 750 mg daily. Patient was previously hospitalized on 11/04/16 for sepsis secondary to pneumonia. He was discharged on 11/07/16. Past Med Surg Social Fam HX - Past Medical History Medical history: hyperlipidemia, hypertension, other, CVA, cancer, CHF, COPD Psychiatric history: anxiety, depression - Past Surgical History Surgical History: herniorrhaphy, orthopedic, other - Social History Smoking Status: Current every day smoker Packs per day: 0.5 Smokeless Tobacco Status: No Alcohol use: none Drug use: marijuana - Family History Father Adopted: No Family Member Ethnicity: Non- Living Status: Hx Family Cancer: Yes Medications and Allergies Buspirone HCl [Buspar] 7.5 mg PO BID 04/21/16 [History] Gabapentin 600 mg PO TID 04/21/16 [History] SUMAtriptan Succinate [Imitrex] 100 mg PO DAILY PRN 04/21/16 [History] lamoTRIgine [Lamictal] 75 mg PO BID 04/21/16 [History] Ipratropium/Albuterol Neb [Duoneb] 3 ml IH Q6HR PRN 07/21/16 [History] Tiotropium [Spiriva] 1 cap IH DAILY 07/21/16 [History] Metoprolol Succinate 100 mg PO DAILY 09/05/16 [History] Albuterol Sulfate [Albuterol Inhaler] 2 puff IH Q6H PRN 09/08/16 [History] Zolpidem [Ambien] 5 mg PO HS 09/14/16 [History] Folic Acid 1 mg PO DAILY #30 tablet 09/28/16 [Rx] Loratadine [Claritin] 10 mg PO AD #60 tablet 09/28/16 [Rx] Omeprazole [PriLOSEC] 20 mg PO DAILY #30 capsule 09/28/16 [Rx] Ondansetron [Zofran] 8 mg PO Q8HR PRN #90 tablet 09/28/16 [Rx] Prochlorperazine Maleate [Compazine] 10 mg PO Q6HR PRN #60 tablet 09/28/16 [Rx] Oxymetazoline [Afrin] 15 spray NS AD PRN #1 bottle 10/06/16 [Rx] Guaifenesin [Guaifenesin ER] 1,200 mg PO BID #60 tab.er.12h 10/22/16 [Rx] OxyCODONE/APAP 10/325 [Percocet 10/325 MG] 1 each PO Q4HR PRN 10/22/16 [History] Lidocaine/Prilocaine CREAM [Emla] 5 gm TP AD PRN 11/04/16 [History] OxyCODONE ER (12 HR) [OxyCONTIN] 30 mg PO Q12HR #30 tab.er.12h 11/07/16 [Rx] diazePAM [Valium] 10 mg PO BID PRN #30 tablet 11/07/16 [Rx] Aspirin [Aspirin] 81 mg PO DAILY 11/20/16 [History] OLANZapine [Zyprexa] 2.5 mg PO DAILY 11/20/16 [History] Umeclidinium [place] [Incruse Ellipta] 1 puff IH DAILY 11/20/16 [History] Allergies doxycycline Allergy (Verified 10/22/16 16:08) Rash hydrocodone [From Vicodin] Allergy (Verified 10/22/16 16:08) Rash lidocaine Allergy (Verified 10/22/16 16:08) Rash propoxyphene [From Darvocet-N] Allergy (Verified 10/22/16 16:08) Rash morphine patches Allergy (Intermediate, Uncoded 10/22/16 16:08) Rash All Systems: A 10-system review of systems was performed and is negative for pertinent findings except as documented above in the HPI. Physical Examination Vital Signs: Vital Signs, Last 4 Hours Temp Pulse Resp BP Pulse Ox 11/20/16 07:56 98.5 F 11/20/16 07:36 98.5 F 101 20 108/92 97 General appearance: no acute distress Eyes: nonicteric ENT: oropharynx moist Neck: supple Effort: normal Inspection: normal Auscultation: bilateral: rhonchi (Bilateral lung bases with coarse rhnochi) Cardiovascular: regular rate and rhythm Gastrointestinal: normoactive bowel sounds, non-distended Integumentary: normal Extremities: no cyanosis, no edema, no clubbing Musculoskeletal: no deformities, ROM normal normal mental status, non-focal exam mood appropriate, affect normal Results - Laboratory Findings CBC and BMP: 11/20/16 04:43 11/20/16 04:43 ABG ABG pH 7.44 pH Units (7.32-7.45) 11/19/16 23:45 ABG pCO2 46 mmHg (35-45) H 11/19/16 23:45 ABG pO2 62 mmHg (85-104) L 11/19/16 23:45 ABG O2 Saturation 92 % (95-98) L 11/19/16 23:45 PT/INR, D-dimer PT 14.1 Seconds (9.4-12.1) H 11/20/16 00:10 Abnormal lab findings: Abnormal lab results WBC 14.9 K/mcL (4.3-11.1) H 11/20/16 04:43 RBC 3.51 M/mcL (4.19-5.50) L 11/20/16 04:43 Hgb 10.4 g/dL (12.9-16.9) L D 11/20/16 04:43 Hct 31.5 % (37.5-50.1) L 11/20/16 04:43 MPV 9.3 fL (9.4-12.4) L 11/20/16 04:43 Neutrophils # 10.5 K/mcL (1.6-8.9) H 11/20/16 04:43 Monocytes # 1.6 K/mcL (0.0-1.3) H 11/20/16 04:43 PT 14.1 Seconds (9.4-12.1) H 11/20/16 00:10 APTT 24.9 Seconds (26.0-36.0) L 11/20/16 00:10 ABG pCO2 46 mmHg (35-45) H 11/19/16 23:45 ABG pO2 62 mmHg (85-104) L 11/19/16 23:45 ABG HCO3 31.2 mEQ/L (21-27) H 11/19/16 23:45 ABG Total CO2 32.6 mEq/L (20-26) H 11/19/16 23:45 ABG O2 Saturation 92 % (95-98) L 11/19/16 23:45 ABG Base Excess 6.1 mEq/L (-2.0 to 3.0) H 11/19/16 23:45 Sodium 133 mEq/L (136-145) L 11/20/16 04:43 POC Glucose 91 (58-89) H 11/20/16 04:37 Calculated Osmolality 276 (280-300) L 11/20/16 04:43 Calcium 8.4 mg/dL (8.6-10.8) L D 11/20/16 04:43 Magnesium 1.1 mg/dL (1.6-2.6) L 11/20/16 04:43 Troponin I 0.07 ng/mL (0-0.03) H* 11/20/16 04:43 Albumin 3.0 g/dL (3.5-5.0) L 11/20/16 00:10 Globulin 4.2 g/dL (2.4-3.5) H 11/20/16 00:10 Albumin/Globulin Ratio 0.7 (1.1-2.2) L 11/20/16 00:10 Lipase 6 Units/L (8-78) L 11/20/16 00:10 - Diagnostic Findings CT scan - chest: image reviewed - Clinical Findings Intake & Output: Intake & Output 11/19/16 11/20/16 11/20/16 23:59 07:59 15:59 Intake Total 150 / 150 Output Total 0 / 0 700 / 700 Balance 150 / 150 -700 / -700 Consult Discharge Plan - Plan Referrals: Raheel Cardenas, DO [Primary Care Provider] - <Irvin Garcia - Last Filed: 11/20/16 16:38> Date of Encounter: 11/20/16 All Systems: A 10-system review of systems was performed and is negative for pertinent findings except as documented above in the HPI. Physical Examination Vital Signs: Vital Signs, Last 4 Hours Temp Pulse Resp BP Pulse Ox 11/20/16 15:54 99.9 F H 11/20/16 15:12 102 25 135/83 94 11/20/16 12:56 102 33 119/76 94 Results - Laboratory Findings CBC and BMP: 11/20/16 04:43 11/20/16 04:43 ABG ABG pH 7.44 pH Units (7.32-7.45) 11/19/16 23:45 ABG pCO2 46 mmHg (35-45) H 11/19/16 23:45 ABG pO2 62 mmHg (85-104) L 11/19/16 23:45 ABG O2 Saturation 92 % (95-98) L 11/19/16 23:45 PT/INR, D-dimer PT 14.1 Seconds (9.4-12.1) H 11/20/16 00:10 Abnormal lab findings: Abnormal lab results WBC 14.9 K/mcL (4.3-11.1) H 11/20/16 04:43 RBC 3.51 M/mcL (4.19-5.50) L 11/20/16 04:43 Hgb 10.4 g/dL (12.9-16.9) L D 11/20/16 04:43 Hct 31.5 % (37.5-50.1) L 11/20/16 04:43 MPV 9.3 fL (9.4-12.4) L 11/20/16 04:43 Neutrophils # 10.5 K/mcL (1.6-8.9) H 11/20/16 04:43 Monocytes # 1.6 K/mcL (0.0-1.3) H 11/20/16 04:43 PT 14.1 Seconds (9.4-12.1) H 11/20/16 00:10 APTT 24.9 Seconds (26.0-36.0) L 11/20/16 00:10 ABG pCO2 46 mmHg (35-45) H 11/19/16 23:45 ABG pO2 62 mmHg (85-104) L 11/19/16 23:45 ABG HCO3 31.2 mEQ/L (21-27) H 11/19/16 23:45 ABG Total CO2 32.6 mEq/L (20-26) H 11/19/16 23:45 ABG O2 Saturation 92 % (95-98) L 11/19/16 23:45 ABG Base Excess 6.1 mEq/L (-2.0 to 3.0) H 11/19/16 23:45 Sodium 133 mEq/L (136-145) L 11/20/16 04:43 POC Glucose 99 (58-89) H 11/20/16 11:40 Calculated Osmolality 276 (280-300) L 11/20/16 04:43 Calcium 8.4 mg/dL (8.6-10.8) L D 11/20/16 04:43 Magnesium 1.1 mg/dL (1.6-2.6) L 11/20/16 04:43 Troponin I 0.06 ng/mL (0-0.03) H* 11/20/16 09:52 Albumin 3.0 g/dL (3.5-5.0) L 11/20/16 00:10 Globulin 4.2 g/dL (2.4-3.5) H 11/20/16 00:10 Albumin/Globulin Ratio 0.7 (1.1-2.2) L 11/20/16 00:10 Lipase 6 Units/L (8-78) L 11/20/16 00:10 - Clinical Findings Intake & Output: Intake & Output 11/20/16 11/20/16 11/20/16 07:59 15:59 23:59 Intake Total 150 / 150 220 / 220 Output Total 0 / 0 1300 / 1300 Balance 150 / 150 -1080 / -1080 - Attending Attestation I examined the patient reviewed documentation. All pertinent radiographic and laboratory data were reviewed. The patient was discussed in multidisciplinary rounds and agree with the resident's documentation of the following addition. Neuro: Report history of brain metastatic disease. Examined this morning does not reveal any focal deficits or evidence of significant cognitive dysfunction. Cardiovascular: Cardiovascular markers of sepsis resolved. Hemodynamic stable. Pulmonary: Possible pneumonia in addition to pulmonary malignancy. No significant gas exchange abnormalities. Nephro: No evidence renal dysfunction. GI: Tolerating oral intake well. ID: Admitted for pneumonia with sepsis. Sepsis physiology now resolved. Patient placed on double coverage for pseudomonas with Zosyn and Levaquin. Discontinue Levaquin. Local antibiogram indicates good coverage for pseudomonas with Zosyn and addition of Levaquin adds minimal additional coverage. HO: Lung cancer with widespread metastasis. Stable anemia. Leukocytosis likely related to malignancy versus infection. Endo: No acute issues. MSK: Significant pain due to bony metastases. Not controlled on outpatient Percocet. Patient reports having prescription for OxyContin but being unable to fill. When necessary IV morphine added. Plan for adjustment of opiate analgesia as needed to manage pain. Disposition: Transfer to internal medicine when bed available. Critical care time 35 minutes
[2016-11-20] MEDS ORDERED: Nicotine 21 MG PATCH.TD24 TD SCH (09:00)
[2016-11-20] MEDS ORDERED: Folic Acid 1 MG TABLET PO SCH (09:00)
[2016-11-20] MEDS ORDERED: Aspirin 81 MG TAB.CHEW PO SCH (09:00)
[2016-11-20] MEDS ORDERED: lamoTRIgine 25 MG TABLET PO SCH (09:00)
[2016-11-20] MEDS ORDERED: 3% Sodium Chloride Inhalation 4 ML VIAL.NEB IH ONE ×2 (09:27→14:07)
[2016-11-20] MEDS ORDERED: Budesonide/Formoterol 160/4.5 MDI IH SCH (10:00)
[2016-11-20] MEDS ORDERED: Piperacillin/Tazobactam 3.375 GM in D5% in Water (Mini-Bag+) 100 ML IVPB SCH (12:00)
[2016-11-20] MEDS: *HR* Morphine 2 MG/ML SYRINGE IVP PRN ×2 (14:37→20:38)
--- NOTE | 2016-11-20 15:38 | Electrocardiograph Report ---
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
[2016-11-20] MEDS ORDERED: *HR* Morphine 2 MG/ML SYRINGE IVP ONE (15:56)
[2016-11-20] MEDS ORDERED: Vancomycin 1,500 MG in D5% in Water 250 ML IVPB SCH (16:00)
[2016-11-20] MEDS: Famotidine 20 MG/2 ML VIAL IVP SCH (16:05)
[2016-11-20] MEDS: *HR* Heparin 5,000 UNIT/ML VIAL SQ SCH (16:06)
--- NOTE | 2016-11-20 16:19 | Internal Med Progress Note ---
Date of Encounter: 11/20/16 Time of Encounter: 16:13 - Assessment and plan (1) Sepsis Current Visit: Yes Status: Acute Qualifiers: Sepsis type: Streptococcus, unspecified Qualified Code(s): A40.9 - Streptococcal sepsis, unspecified; A40 - Streptococcal sepsis (2) Acute respiratory failure Current Visit: Yes Status: Acute Qualifiers: Respiratory failure complication: hypoxia Qualified Code(s): J96.01 - Acute respiratory failure with hypoxia (3) Cancer associated pain Current Visit: Yes Status: Chronic (4) Tobacco abuse Current Visit: Yes Status: Chronic (5) HCAP (healthcare-associated pneumonia) Current Visit: Yes Status: Acute (6) Elevated troponin Current Visit: Yes Status: Acute (7) COPD exacerbation Current Visit: No Status: Acute (8) DVT prophylaxis Current Visit: No Status: Acute - Subjective Interval history: Patient is a 56-year-old male with metastatic lung cancer who follows with Dr. Kendrick. Patient presented [facility] ED one day ago ith sepsis secondary to pneumonia. Patient had a CT chest which lung cancer. He had a temperature of 101.3 heart rate of 140,22, leukocytosis with WBC of 17. Patient did receive vancomycin 1, Zosyn 3.375 mg, and Levaquin 750 mg in the ED prior to admission to the ICU. He was continued on Vancomycin 1250mg q12hr, Zosyn 3.375mg q8hr, Levaquin 750 mg daily. Patient was previously hospitalized on 11/04/16 for sepsis secondary to pneumonia. He was discharged on 11/07/16. The patient was seen. He is sitting in bed eating his lunch and does not seem to be uncomfortable. Troponin elevated and will be repeated as well as CBC and CMP. Clinically he denies any chest pain. - Constitutional Vitals: Temp Pulse Resp BP Pulse Ox 99.9 F H 102 25 135/83 94 11/20/16 15:54 11/20/16 15:12 11/20/16 15:12 11/20/16 15:12 11/20/16 15:12 General appearance: Present: A&O X 3, underweight, answers questions appropriately - Head Head exam: Present: atraumatic, normocephalic - Eye Eye exam: Present: PERRL, conjuntiva pink, sclera anicteric Pupils: Present: PERRL - Neck Neck exam general surgery: Present: supple, trachea midline. Absent: lymphadenopathy - Respiratory Respiratory exam: Present: CTAB. Absent: accessory muscle use, rales, rhonchi, wheezes Additional comments: Bilateral shallow breath sounds and diffuse wheezing with prolonged expiratory phase - Cardiovascular Cardiovascular exam: Present: RRR, +S1, +S2. Absent: diastolic murmur, gallop, rubs, systolic murmur - GI/Abdominal GI/Abdominal exam: Present: normal bowel sounds, soft, no peritoneal signs. Absent: distended, tenderness - Extremities Exam Extremities exam: Present: warm, radial pulses palpable and symetrical. Absent : calf tenderness, cyanotic, pedal edema - Neurological Exam Neurological exam: Present: CN II-XII intact, oriented X3, no focal deficits. Absent: pronater drift, facial droop, speech deficit - Skin Skin exam: Present: dry, intact Internal Medicine: Result - Labs CBC & Chem 7: 11/20/16 04:43 11/20/16 04:43 Labs: Short CBC 11/20/16 Range/Units 04:43 WBC 14.9 H (4.3-11.1) K/mcL Hgb 10.4 L D (12.9-16.9) g/dL Hct 31.5 L (37.5-50.1) % Plt Count 181 (140-400) K/mcL Neutrophils # 10.5 H (1.6-8.9) K/mcL BMP 11/20/16 04:43 Sodium 133 L Potassium 4.1 Chloride 101 Carbon Dioxide 26 BUN 14 Creatinine 0.73 Glucose 95 Calcium 8.4 L D Cardiac Enzymes 11/20/16 11/20/16 Range/Units 04:43 09:52 Troponin I 0.07 H* 0.06 H* (0-0.03) ng/mL - ABG Interpretation ABG results: ABG ABG pH 7.44 pH Units (7.32-7.45) 11/19/16 23:45 ABG pCO2 46 mmHg (35-45) H 11/19/16 23:45 ABG pO2 62 mmHg (85-104) L 11/19/16 23:45 ABG O2 Saturation 92 % (95-98) L 11/19/16 23:45 PT/INR, D-dimer PT 14.1 Seconds (9.4-12.1) H 11/20/16 00:10 - Impressions Impressions Abdomen/Pelvis CT 11/20/16 23:32 IMPRESSION: Overall progression of disease compared to the prior studies. The left lung mass has increased in size with worsening surrounding small airspace and nodular opacities. Superimposed infection cannot be excluded. In addition there is diffuse irregular septal thickening throughout the left lung which is suspicious for lymphangitic spread of tumor, increasing size of right pulmonary nodules, worsening mediastinal/supraclavicular lymphadenopathy, increasing size of bilateral adrenal lesion, new tiny hypodensity in the right hepatic lobe and increased retroperitoneal para-aortic lymph nodes. D/ / 11/20/2016 07:33:45 Tr Dutta MD / radha Interpreting Provider: Tr Dutta MD Chest CT 11/20/16 23:32 IMPRESSION: Overall progression of disease compared to the prior studies. The left lung mass has increased in size with worsening surrounding small airspace and nodular opacities. Superimposed infection cannot be excluded. In addition there is diffuse irregular septal thickening throughout the left lung which is suspicious for lymphangitic spread of tumor, increasing size of right pulmonary nodules, worsening mediastinal/supraclavicular lymphadenopathy, increasing size of bilateral adrenal lesion, new tiny hypodensity in the right hepatic lobe and increased retroperitoneal para-aortic lymph nodes. D/ / 11/20/2016 07:33:45 Tr Dutta MD / radha Interpreting Provider: Tr Dutta MD Consult Discharge Plan - Plan Referrals: Raheel Cardenas DO [Primary Care Provider] -
[2016-11-20] MEDS: Vancomycin 1,500 MG in D5% in Water 250 ML IVPB SCH (16:49)
[2016-11-20] MEDS: Insulin LISPRO 300 UNITS/3 ML VIAL SQ SCH ×2 (17:16→21:00)
[2016-11-20] MEDS: *HR* OxyCODONE ER (12 HR) 10 MG TABLET PO SCH (17:31)
[2016-11-20] MEDS: 0.9 % Sodium Chloride 1,000 ML IVC SCH (17:31)
[2016-11-20] MEDS ORDERED: *HR* OxyCODONE ER (12 HR) 10 MG TABLET PO SCH (18:00)
--- NOTE | 2016-11-20 19:47 | Oncology Inp Consult Note ---
Date of Encounter: 11/23/16 Time of Encounter: 19:45 Assessment and Plan (1) HCAP (healthcare-associated pneumonia) Status: Acute Assessment and plan: Left upper lobe infiltrate. Getting IV antibiotic. Blood and sputum cultures have been negative so far (2) Primary lung cancer with metastasis from lung to other site Status: Chronic Assessment and plan: Poorly differentiated carcinoma stage IV. I compared the CT chest abdomen and pelvis 11/20/2016 to previous CAT scan. There is progression of left lung mass and mediastinal adenopathy. Also increase in retroperitoneal adenopathy. He has received 1 one cycle of chemotherapy as mentioned. Further chemotherapy is being postponed due to medical problems and complaints issue. Discussed with Dr. Kendrick his primary oncologist. His cycle 2 chemotherapy scheduled for 11/26/2016. One option is to add immune checkpoint inhibitor like Pembrolizumab to existing chemotherapy The other option is switched him to immune checkpoint inhibitors and dropping the chemotherapy Qualifiers: Laterality: unspecified laterality Qualified Code(s): C34.90 - Malignant neoplasm of unspecified part of unspecified bronchus or lung - Data of Consult Patient: known to practice within the last 3 years Requesting Physician: Enrique Marlow MD Primary Care Provider: Raheel Cardenas, - Consult Narrative Reason for consult: Metastatic lung cancer, pneumonia History of present illness: Mr. Bliss is a 56 year old male Patient is a 56-year-old male with metastatic lung cancer who follows with Dr. Kendrick. Patient presented [facility] ED one day ago ith sepsis secondary to pneumonia. Patient had a CT chest which lung cancer. He had a temperature of 101.3 heart rate of 140,22, leukocytosis with WBC of 17. Patient did receive vancomycin 1, Zosyn 3.375 mg, and Levaquin 750 mg in the ED prior to admission to the ICU. He was continued on Vancomycin 1250mg q12hr, Zosyn 3.375mg q8hr, Levaquin 750 mg daily. Patient was previously hospitalized on 11/04/16 for sepsis secondary to pneumonia. He was discharged on 11/07/16. Currently he is transferred to [facility]. Breathing stable on supplemental oxygen Oncology Hx: He initially presented with COPD exacerbation and had CT angiogram 04/22/16 showed a 1.5 cm TORREY spiculated mass. Repeat chest CT 05/29/16 confirmed a 2cm TORREY mass associated with right hilar adenopathy. PET/CT 06/24/16 confirmed hypermetabolic TORREY mass, subcarinal, left hilar lymphadenopathy concerning for malignancy. Focal uptake in the right seventh rib without CT correlate. Mild FDG uptake in 7 mm right lower lobe nodule indeterminate for malignancy. Additional subtle lucency in the left humeral head with FDG uptake highly concerning for metastatic disease. Bronch 07/21/[address] Bradford confirmed malignancy in left hilum and subcarinal node FNA. Immunopositive for CK 7 and focally positive for synaptophysin. Consistent with carcinoma such as poorly differentiated adenocarcinoma,large cell carcnioma or sarcomatoid carcinoma. Brain MRI 08/12/16 showed 2 subcentimeter intracranial metastatic lesion involving each cerebellar hemisphere and associated vasogenic edema in the right cerebellar hemisphere. Treatment summary: 08/25/16: SRS to right and left cerebellar metastases by [place] [employer] [facility]. 09/24/16: Started combination carbo and Alimta regimen administered every 3 weeks with Neulasta support. Ongoing. Plan to treat for 4-6 cycles depending on response and tolerability to be followed by maintenance therapy. He has received 1 dose on 09/24/2016. His treatment has been postponed due to the patient's condition Cycle 2 has been scheduled for 11/26/2016 Imaging: CT chest and bone scan 09/11/16: Large left perihilar/hilar mass and enlarging subcarinal lymphadenopathy compatible with disease progression compared to 06/24/16. Left adrenal metastasis is also evident. Increasing, heterogeneous consolidation/the left lung apex possibly due to postobstructive changes versus lymphangitic tumor spread. No evidence of osseous metastasis on bone scan. MR/MR head/brain wo/w con 10/01/16 Interval decrease in the left and right cerebellar metastatic lesions. No new metastatic lesions are identified. No acute intracranial abnormality. Mild chronic small vessel ischemic changes. CT abdomen and pelvis 10/15/16 showed enlarging left adrenal metastasis. Past Med Surg Social Fam HX - Past Medical History Medical history: hyperlipidemia, hypertension, other, CVA, cancer, CHF, COPD Psychiatric history: anxiety, depression - Past Surgical History Surgical History: herniorrhaphy, orthopedic, other - Social History Smoking Status: Current every day smoker Packs per day: 0.5 Smokeless Tobacco Status: No Alcohol use: none Drug use: marijuana - Family History Father Adopted: No Family Member Ethnicity: Non- Living Status: Hx Family Cancer: Yes Medications and Allergies Buspirone HCl [Buspar] 7.5 mg PO BID 04/21/16 [History] Gabapentin 600 mg PO TID 04/21/16 [History] SUMAtriptan Succinate [Imitrex] 100 mg PO DAILY PRN 04/21/16 [History] lamoTRIgine [Lamictal] 75 mg PO BID 04/21/16 [History] Ipratropium/Albuterol Neb [Duoneb] 3 ml IH Q6HR PRN 07/21/16 [History] Tiotropium [Spiriva] 1 cap IH DAILY 07/21/16 [History] Metoprolol Succinate 100 mg PO DAILY 09/05/16 [History] Albuterol Sulfate [Albuterol Inhaler] 2 puff IH Q6H PRN 09/08/16 [History] Zolpidem [Ambien] 5 mg PO HS 09/14/16 [History] Folic Acid 1 mg PO DAILY #30 tablet 09/28/16 [Rx] Loratadine [Claritin] 10 mg PO AD #60 tablet 09/28/16 [Rx] Omeprazole [PriLOSEC] 20 mg PO DAILY #30 capsule 09/28/16 [Rx] Ondansetron [Zofran] 8 mg PO Q8HR PRN #90 tablet 09/28/16 [Rx] Prochlorperazine Maleate [Compazine] 10 mg PO Q6HR PRN #60 tablet 09/28/16 [Rx] Oxymetazoline [Afrin] 15 spray NS AD PRN #1 bottle 10/06/16 [Rx] Guaifenesin [Guaifenesin ER] 1,200 mg PO BID #60 tab.er.12h 10/22/16 [Rx] OxyCODONE/APAP 10/325 [Percocet 10/325 MG] 1 each PO Q4HR PRN 10/22/16 [History] Lidocaine/Prilocaine CREAM [Emla] 5 gm TP AD PRN 11/04/16 [History] OxyCODONE ER (12 HR) [OxyCONTIN] 30 mg PO Q12HR #30 tab.er.12h 11/07/16 [Rx] diazePAM [Valium] 10 mg PO BID PRN #30 tablet 11/07/16 [Rx] Aspirin [Aspirin] 81 mg PO DAILY 11/20/16 [History] OLANZapine [Zyprexa] 2.5 mg PO DAILY 11/20/16 [History] Umeclidinium [place] [Incruse Ellipta] 1 puff IH DAILY 11/20/16 [History] Allergies doxycycline Allergy (Verified 10/22/16 16:08) Rash hydrocodone [From Vicodin] Allergy (Verified 10/22/16 16:08) Rash lidocaine Allergy (Verified 10/22/16 16:08) Rash propoxyphene [From Darvocet-N] Allergy (Verified 10/22/16 16:08) Rash morphine patches Allergy (Intermediate, Uncoded 10/22/16 16:08) Rash Oncology - Exam - Constitutional Vitals: Temp Pulse Resp BP Pulse Ox 99.9 F H 109 19 143/86 98 11/20/16 15:54 11/20/16 17:37 11/20/16 17:37 11/20/16 17:37 11/20/16 17:37 Exam: GENERAL: Alert and oriented, well appearing. Mental Status: Affect appropriate for circumstances HEENT: Sclerae anicteric. No mucositis or thrush. No other oral or pharyngeal lesions or erythema. Skin: No rashes or petechiae. No evidence of skin malignancy Lymph nodes: No cervical, supraclavicular, axillary, or inguinal adenopathy. Lungs: Air entry decreased at bases Cardiovascular: Regular rate and rhythm. No skipped beats Abdomen: Soft, nontender; no organomegaly or masses palpable. Extremities: No edema. No calf swelling or tenderness. No joint deformity. Neurologic: Alert, cranial nerves II-XII intact; normal gait; no focal weakness or sensory abnormalities Oncology - Results - Labs Labs: Short CBC 11/20/16 Range/Units 04:43 WBC 14.9 H (4.3-11.1) K/mcL Hgb 10.4 L D (12.9-16.9) g/dL Hct 31.5 L (37.5-50.1) % Plt Count 181 (140-400) K/mcL Neutrophils # 10.5 H (1.6-8.9) K/mcL BMP 11/20/16 04:43 Sodium 133 L Potassium 4.1 Chloride 101 Carbon Dioxide 26 BUN 14 Creatinine 0.73 Glucose 95 Calcium 8.4 L D Cardiac Enzymes 11/20/16 11/20/16 11/20/16 Range/Units 04:43 09:52 16:26 Troponin I 0.07 H* 0.06 H* 0.05 H* (0-0.03) ng/mL Consult Discharge Plan - Plan Referrals: Raheel Cardenas DO [Primary Care Provider] -
[2016-11-20] MEDS: Budesonide/Formoterol 160/4.5 MDI IH SCH (20:15)
[2016-11-20] MEDS: lamoTRIgine 25 MG TABLET PO SCH (20:49)
[2016-11-20] MEDS: Sennosides/Docusate Sodium TABLET PO SCH (20:49)
[2016-11-20] MEDS: Piperacillin/Tazobactam 3.375 GM in D5% in Water (Mini-Bag+) 100 ML IVPB SCH (20:50)
[2016-11-21] MEDS: Ipratropium/Albuterol Neb 3 ML IH SCH ×7 (00:27→23:19)
[2016-11-21] MEDS: *HR* Heparin 5,000 UNIT/ML VIAL SQ SCH ×3 (00:30→16:10)
[2016-11-21] MEDS: *HR* Morphine 2 MG/ML SYRINGE IVP PRN ×4 (00:30→21:09)
[2016-11-21] MEDS ORDERED: Levofloxacin 750 MG/150 ML 750 MG/150 ML BAG IVPB SCH (02:00)
[2016-11-21] MEDS: Piperacillin/Tazobactam 3.375 GM in D5% in Water (Mini-Bag+) 100 ML IVPB SCH ×3 (04:50→21:10)
[2016-11-21] MEDS: Vancomycin 1,500 MG in D5% in Water 250 ML IVPB SCH (04:55)
[2016-11-21] MEDS: *HR* OxyCODONE ER (12 HR) 10 MG TABLET PO SCH ×2 (05:14→16:10)
[2016-11-21] MEDS: Famotidine 20 MG/2 ML VIAL IVP SCH ×2 (05:14→16:10)
[2016-11-21 06:50] LABS: Basophils % 0.2 %; Eosinophils # 0.1 K/mcL (0.0-0.6); Eosinophils % 0.4 %; Hematocrit 30.3 % (37.5-50.1); Hemoglobin 10.1 g/dL (12.9-16.9); Immature Granulocytes % 0.4 % (0-4); Lymphocytes # 1.9 K/mcL (0.6-4.6); Lymphocytes % 15.1 %; Mean Corpuscular HGB Conc 33.3 g/dL (31.6-35.5); Mean Corpuscular Volume 89.9 fL (83.0-100.0); Monocytes # 1.2 K/mcL (0.0-1.3); Monocytes % 9.2 %; Neutrophils # 9.4 K/mcL (1.6-8.9); Platelet Count 173 K/mcL (140-400); Red Blood Count 3.37 M/mcL (4.19-5.50); Red Cell Distribution Width 13.5 % (11.5-14.5); Segmented Neutrophils % 74.7 %
[2016-11-21] MEDS: 0.9 % Sodium Chloride 1,000 ML IVC SCH ×3 (06:51→23:00)
[2016-11-21 07:04] LABS: Alanine Aminotransferase 25 Units/L (0-55); Albumin 2.2 g/dL (3.5-5.0); Albumin/Globulin Ratio 0.6 (1.1-2.2); Alkaline Phosphatase 105 Units/L (38-126); Aspartate Amino Transferase 14 Units/L (5-34); BUN/Creatinine Ratio 8 (6-26); Bilirubin,Total 0.8 mg/dL (0.2-1.2); Blood Urea Nitrogen 6 mg/dL (8-26); Calcium 8.8 mg/dL (8.6-10.8); Carbon Dioxide 28 mEq/L (19-29); Chloride 98 mEq/L (98-109); Globulin 3.6 g/dL (2.4-3.5); Glucose 147 mg/dL (70-99); Osmolality,Calculated 276 (280-300); Potassium 3.9 mEq/L (3.5-4.5); Sodium 133 mEq/L (136-145); Total Protein 5.8 g/dL (6.0-8.3); eGFR For African Americans > 60 (> 60); eGFR For Non-African Americans > 60 (> 60)
[2016-11-21] MEDS ORDERED: Magnesium Sulfate 2 GM in D5% in Water 100 ML IVPB ONE (08:12)
[2016-11-21] MEDS: Folic Acid 1 MG TABLET PO SCH (08:18)
[2016-11-21] MEDS: lamoTRIgine 25 MG TABLET PO SCH ×2 (08:18→21:10)
[2016-11-21] MEDS: Aspirin 81 MG TAB.CHEW PO SCH (08:18)
[2016-11-21] MEDS: Insulin LISPRO 300 UNITS/3 ML VIAL SQ SCH ×3 (08:19→18:11)
[2016-11-21] MEDS: Nicotine 21 MG PATCH.TD24 TD SCH (08:19)
[2016-11-21] MEDS: Sennosides/Docusate Sodium TABLET PO SCH ×2 (08:24→21:10)
[2016-11-21] MEDS: Budesonide/Formoterol 160/4.5 MDI IH SCH ×2 (08:33→20:18)
[2016-11-21] MEDS: Ondansetron 4 MG/2 ML VIAL IVP PRN ×2 (13:06→17:30)
--- NOTE | 2016-11-21 15:15 | Internal Med Progress Note ---
Date of Encounter: 11/21/16 Time of Encounter: 15:13 - Assessment and plan (1) Sepsis Current Visit: Yes Status: Acute Qualifiers: Sepsis type: Streptococcus, unspecified Qualified Code(s): A40.9 - Streptococcal sepsis, unspecified; A40 - Streptococcal sepsis (2) Acute respiratory failure Current Visit: Yes Status: Acute Qualifiers: Respiratory failure complication: hypoxia Qualified Code(s): J96.01 - Acute respiratory failure with hypoxia (3) Cancer associated pain Current Visit: Yes Status: Chronic (4) Tobacco abuse Current Visit: Yes Status: Chronic (5) HCAP (healthcare-associated pneumonia) Current Visit: Yes Status: Acute (6) Elevated troponin Current Visit: Yes Status: Acute (7) COPD exacerbation Current Visit: No Status: Acute (8) DVT prophylaxis Current Visit: No Status: Acute (9) Hypomagnesemia Current Visit: Yes Status: Acute - Subjective Interval history: Patient is a 56-year-old male with metastatic lung cancer who follows with Dr. Kendrick. Patient presented [facility] ED one day ago ith sepsis secondary to pneumonia. Patient had a CT chest which lung cancer. He had a temperature of 101.3 heart rate of 140,22, leukocytosis with WBC of 17. Patient did receive vancomycin 1, Zosyn 3.375 mg, and Levaquin 750 mg in the ED prior to admission to the ICU. He was continued on Vancomycin 1250mg q12hr, Zosyn 3.375mg q8hr, Levaquin 750 mg daily. Patient was previously hospitalized on 11/04/16 for sepsis secondary to pneumonia. He was discharged on 11/07/16. The patient was seen. He is sitting in bed eating his lunch and does not seem to be uncomfortable. Troponin elevated and will be repeated as well as CBC and CMP. Clinically he denies any chest pain. 11/21 breathing better and has been transferred out of ICU to stepdown unit. Still needs oxygen. Breath sounds still shallow. Continue current treatment as overall breath sounds are improving. Magnesium was low therefore supplemented. On admission patient troponin were mildly elevated of significance. An echocardiogram was done which showed normal cardiac ejection fraction of 55% no wall motion abnormality in LV with a good systolic function mild diastolic dysfunction noted valvular no significant valvular abnormality. - Constitutional Vitals: Temp Pulse Resp BP Pulse Ox 99.2 F 126 18 113/78 98 11/21/16 12:37 11/21/16 12:37 11/21/16 12:37 11/21/16 12:37 11/21/16 12:37 General appearance: Present: A&O X 3, underweight, answers questions appropriately - Head Head exam: Present: atraumatic, normocephalic - Eye Eye exam: Present: PERRL, conjuntiva pink, sclera anicteric Pupils: Present: PERRL - Neck Neck exam general surgery: Present: supple, trachea midline. Absent: lymphadenopathy - Respiratory Respiratory exam: Present: decreased breath sounds, rhonchi, wheezes. Absent: accessory muscle use, rales - Cardiovascular Cardiovascular exam: Present: RRR, +S1, +S2. Absent: diastolic murmur, gallop, rubs, systolic murmur - GI/Abdominal GI/Abdominal exam: Present: normal bowel sounds, soft, no peritoneal signs. Absent: distended, tenderness - Extremities Exam Extremities exam: Present: warm, radial pulses palpable and symetrical. Absent : calf tenderness, cyanotic, pedal edema - Neurological Exam Neurological exam: Present: CN II-XII intact, oriented X3, no focal deficits. Absent: pronater drift, facial droop, speech deficit - Skin Skin exam: Present: dry, intact Internal Medicine: Result - Labs CBC & Chem 7: 11/21/16 06:40 11/21/16 06:40 Labs: Short CBC 11/21/16 Range/Units 06:40 WBC 12.5 H (4.3-11.1) K/mcL Hgb 10.1 L (12.9-16.9) g/dL Hct 30.3 L (37.5-50.1) % Plt Count 173 (140-400) K/mcL Neutrophils # 9.4 H (1.6-8.9) K/mcL BMP 11/21/16 06:40 Sodium 133 L Potassium 3.9 Chloride 98 Carbon Dioxide 28 BUN 6 L Creatinine 0.73 Glucose 147 H Calcium 8.8 Cardiac Enzymes 11/20/16 Range/Units 16:26 Troponin I 0.05 H* (0-0.03) ng/mL Liver Function 11/21/16 Range/Units 06:40 Total Bilirubin 0.8 (0.2-1.2) mg/dL AST 14 (5-34) Units/L ALT 25 (0-55) Units/L Alkaline Phosphatase 105 (38-126) Units/L Albumin 2.2 L D (3.5-5.0) g/dL - ABG Interpretation ABG results: ABG ABG pH 7.44 pH Units (7.32-7.45) 11/19/16 23:45 ABG pCO2 46 mmHg (35-45) H 11/19/16 23:45 ABG pO2 62 mmHg (85-104) L 11/19/16 23:45 ABG O2 Saturation 92 % (95-98) L 11/19/16 23:45 PT/INR, D-dimer PT 14.1 Seconds (9.4-12.1) H 11/20/16 00:10 - Impressions Impressions Abdomen/Pelvis CT 11/20/16 23:32 IMPRESSION: Overall progression of disease compared to the prior studies. The left lung mass has increased in size with worsening surrounding small airspace and nodular opacities. Superimposed infection cannot be excluded. In addition there is diffuse irregular septal thickening throughout the left lung which is suspicious for lymphangitic spread of tumor, increasing size of right pulmonary nodules, worsening mediastinal/supraclavicular lymphadenopathy, increasing size of bilateral adrenal lesion, new tiny hypodensity in the right hepatic lobe and increased retroperitoneal para-aortic lymph nodes. D/ / 11/20/2016 07:33:45 Tr Dutta MD / bcaer Interpreting Provider: Tr Dutta MD Chest CT 11/20/16 23:32 IMPRESSION: Overall progression of disease compared to the prior studies. The left lung mass has increased in size with worsening surrounding small airspace and nodular opacities. Superimposed infection cannot be excluded. In addition there is diffuse irregular septal thickening throughout the left lung which is suspicious for lymphangitic spread of tumor, increasing size of right pulmonary nodules, worsening mediastinal/supraclavicular lymphadenopathy, increasing size of bilateral adrenal lesion, new tiny hypodensity in the right hepatic lobe and increased retroperitoneal para-aortic lymph nodes. D/ / 11/20/2016 07:33:45 Tr Dutta MD / radha Interpreting Provider: Tr Dutta MD Consult Discharge Plan - Plan Referrals: Raheel Cardenas, [Primary Care Provider] -
[2016-11-21] MEDS: Vancomycin 1,750 MG in D5% in Water 500 ML IVPB SCH (16:10)
[2016-11-21] MEDS: Ondansetron 4 MG/2 ML VIAL IVP SCH (22:45)
[2016-11-22] MEDS: *HR* Heparin 5,000 UNIT/ML VIAL SQ SCH ×3 (01:08→14:53)
[2016-11-22] MEDS: *HR* Morphine 2 MG/ML SYRINGE IVP PRN ×4 (01:09→20:45)
[2016-11-22] MEDS: Ipratropium/Albuterol Neb 3 ML IH SCH ×6 (04:32→23:03)
[2016-11-22] MEDS: *HR* OxyCODONE ER (12 HR) 10 MG TABLET PO SCH ×2 (05:24→18:03)
[2016-11-22] MEDS: Vancomycin 1,750 MG in D5% in Water 500 ML IVPB SCH ×2 (05:25→18:03)
[2016-11-22] MEDS: Famotidine 20 MG/2 ML VIAL IVP SCH ×2 (05:25→18:03)
[2016-11-22 05:43] LABS: Basophils % 0.2 %; Eosinophils # 0.1 K/mcL (0.0-0.6); Eosinophils % 0.8 %; Hematocrit 30.4 % (37.5-50.1); Immature Granulocytes % 0.7 % (0-4); Lymphocytes # 1.8 K/mcL (0.6-4.6); Lymphocytes % 15.4 %; Mean Corpuscular HGB Conc 32.9 g/dL (31.6-35.5); Mean Corpuscular Hemoglobin 29.6 pg (28.0-33.3); Mean Corpuscular Volume 89.9 fL (83.0-100.0); Mean Platelet Volume 9.4 fL (9.4-12.4); Monocytes # 1.1 K/mcL (0.0-1.3); Monocytes % 9.1 %; Neutrophils # 8.8 K/mcL (1.6-8.9); Platelet Count 196 K/mcL (140-400); Red Blood Count 3.38 M/mcL (4.19-5.50); Red Cell Distribution Width 13.4 % (11.5-14.5); Segmented Neutrophils % 73.8 %
[2016-11-22 05:56] LABS: Alanine Aminotransferase 24 Units/L (0-55); Albumin 2.2 g/dL (3.5-5.0); Albumin/Globulin Ratio 0.6 (1.1-2.2); Alkaline Phosphatase 119 Units/L (38-126); Aspartate Amino Transferase 17 Units/L (5-34); BUN/Creatinine Ratio 7 (6-26); Bilirubin,Total 0.7 mg/dL (0.2-1.2); Blood Urea Nitrogen 7 mg/dL (8-26); Calcium 9.3 mg/dL (8.6-10.8); Carbon Dioxide 28 mEq/L (19-29); Chloride 98 mEq/L (98-109); Globulin 3.7 g/dL (2.4-3.5); Glucose 101 mg/dL (70-99); Osmolality,Calculated 280 (280-300); Potassium 4.1 mEq/L (3.5-4.5); Sodium 136 mEq/L (136-145); Total Protein 5.9 g/dL (6.0-8.3); eGFR For African Americans > 60 (> 60); eGFR For Non-African Americans > 60 (> 60)
[2016-11-22] MEDS: Budesonide/Formoterol 160/4.5 MDI IH SCH ×2 (07:27→19:59)
[2016-11-22] MEDS: Ondansetron 4 MG/2 ML VIAL IVP SCH ×6 (08:00→23:55)
[2016-11-22] MEDS: Insulin LISPRO 300 UNITS/3 ML VIAL SQ SCH ×3 (08:00→12:23)
[2016-11-22] MEDS: Piperacillin/Tazobactam 3.375 GM in D5% in Water (Mini-Bag+) 100 ML IVPB SCH ×3 (08:28→22:10)
[2016-11-22] MEDS: Nicotine 21 MG PATCH.TD24 TD SCH (08:52)
[2016-11-22] MEDS: Aspirin 81 MG TAB.CHEW PO SCH (08:53)
[2016-11-22] MEDS: lamoTRIgine 25 MG TABLET PO SCH ×2 (08:53→20:45)
[2016-11-22] MEDS: Folic Acid 1 MG TABLET PO SCH (08:53)
[2016-11-22] MEDS: Sennosides/Docusate Sodium TABLET PO SCH ×2 (08:54→20:45)
[2016-11-22] MEDS: 0.9 % Sodium Chloride 1,000 ML IVC SCH (14:31)
--- NOTE | 2016-11-22 18:50 | Internal Med Progress Note ---
Date of Encounter: 11/22/16 Time of Encounter: 18:49 - Assessment and plan (1) Sepsis Current Visit: Yes Status: Acute Qualifiers: Sepsis type: Streptococcus, unspecified Qualified Code(s): A40.9 - Streptococcal sepsis, unspecified; A40 - Streptococcal sepsis (2) Acute respiratory failure Current Visit: Yes Status: Acute Qualifiers: Respiratory failure complication: hypoxia Qualified Code(s): J96.01 - Acute respiratory failure with hypoxia (3) Cancer associated pain Current Visit: Yes Status: Chronic (4) Tobacco abuse Current Visit: Yes Status: Chronic (5) HCAP (healthcare-associated pneumonia) Current Visit: Yes Status: Acute (6) Elevated troponin Current Visit: Yes Status: Acute (7) COPD exacerbation Current Visit: No Status: Acute (8) DVT prophylaxis Current Visit: No Status: Acute (9) Hypomagnesemia Current Visit: Yes Status: Acute - Subjective Interval history: Patient is a 56-year-old male with metastatic lung cancer who follows with Dr. Kendrick. Patient presented [facility] ED one day ago ith sepsis secondary to pneumonia. Patient had a CT chest which lung cancer. He had a temperature of 101.3 heart rate of 140,22, leukocytosis with WBC of 17. Patient did receive vancomycin 1, Zosyn 3.375 mg, and Levaquin 750 mg in the ED prior to admission to the ICU. He was continued on Vancomycin 1250mg q12hr, Zosyn 3.375mg q8hr, Levaquin 750 mg daily. Patient was previously hospitalized on 11/04/16 for sepsis secondary to pneumonia. He was discharged on 11/07/16. The patient was seen. He is sitting in bed eating his lunch and does not seem to be uncomfortable. Troponin elevated and will be repeated as well as CBC and CMP. Clinically he denies any chest pain. 11/21 breathing better and has been transferred out of ICU to stepdown unit. Still needs oxygen. Breath sounds still shallow. Continue current treatment as overall breath sounds are improving. Magnesium was low therefore supplemented. On admission patient troponin were mildly elevated of significance. An echocardiogram was done which showed normal cardiac ejection fraction of 55% no wall motion abnormality in LV with a good systolic function mild diastolic dysfunction noted valvular no significant valvular abnormality. 11/22 breathing has started improving. From tomorrow we may start tapering steroids. No other complaint. - Constitutional Vitals: Temp Pulse Resp BP Pulse Ox 98.0 F 114 18 144/89 93 11/22/16 16:28 11/22/16 16:28 11/22/16 16:28 11/22/16 16:28 11/22/16 16:28 General appearance: Present: A&O X 3, underweight, answers questions appropriately - Head Head exam: Present: atraumatic, normocephalic - Eye Eye exam: Present: PERRL, conjuntiva pink, sclera anicteric Pupils: Present: PERRL - Neck Neck exam general surgery: Present: supple, trachea midline. Absent: lymphadenopathy - Respiratory Respiratory exam: Present: CTAB, wheezes. Absent: accessory muscle use, rales, rhonchi Additional comments: Overall breathing is improved bilateral wheezing has been a scattered but otherwise no rhonchi and no wheezing no rub - Cardiovascular Cardiovascular exam: Present: RRR, +S1, +S2. Absent: diastolic murmur, gallop, rubs, systolic murmur - GI/Abdominal GI/Abdominal exam: Present: normal bowel sounds, soft, no peritoneal signs. Absent: distended, tenderness - Extremities Exam Extremities exam: Present: warm, radial pulses palpable and symetrical. Absent : calf tenderness, cyanotic, pedal edema - Neurological Exam Neurological exam: Present: CN II-XII intact, oriented X3, no focal deficits. Absent: pronater drift, facial droop, speech deficit - Skin Skin exam: Present: dry, intact Internal Medicine: Result - Labs CBC & Chem 7: 11/22/16 05:00 11/22/16 05:00 Labs: Short CBC 11/22/16 Range/Units 05:00 WBC 11.9 H (4.3-11.1) K/mcL Hgb 10.0 L (12.9-16.9) g/dL Hct 30.4 L (37.5-50.1) % Plt Count 196 (140-400) K/mcL Neutrophils # 8.8 (1.6-8.9) K/mcL BMP 11/22/16 05:00 Sodium 136 Potassium 4.1 Chloride 98 Carbon Dioxide 28 BUN 7 L Creatinine 0.94 Glucose 101 H Calcium 9.3 Liver Function 11/22/16 Range/Units 05:00 Total Bilirubin 0.7 (0.2-1.2) mg/dL AST 17 (5-34) Units/L ALT 24 (0-55) Units/L Alkaline Phosphatase 119 (38-126) Units/L Albumin 2.2 L (3.5-5.0) g/dL - ABG Interpretation ABG results: ABG ABG pH 7.44 pH Units (7.32-7.45) 11/19/16 23:45 ABG pCO2 46 mmHg (35-45) H 11/19/16 23:45 ABG pO2 62 mmHg (85-104) L 11/19/16 23:45 ABG O2 Saturation 92 % (95-98) L 11/19/16 23:45 PT/INR, D-dimer PT 14.1 Seconds (9.4-12.1) H 11/20/16 00:10 Consult Discharge Plan - Plan Referrals: Raheel Cardenas DO [Primary Care Provider] -
[2016-11-23] MEDS: *HR* Morphine 2 MG/ML SYRINGE IVP PRN ×3 (00:05→06:49)
[2016-11-23] MEDS: *HR* Heparin 5,000 UNIT/ML VIAL SQ SCH ×3 (00:05→17:17)
[2016-11-23] MEDS: Ondansetron 4 MG/2 ML VIAL IVP SCH ×5 (00:06→15:57)
[2016-11-23] MEDS: 0.9 % Sodium Chloride 1,000 ML IVC SCH ×2 (02:40→17:18)
[2016-11-23] MEDS: Vancomycin 1,750 MG in D5% in Water 500 ML IVPB SCH ×2 (04:03→17:17)
[2016-11-23] MEDS: Ipratropium/Albuterol Neb 3 ML IH SCH ×5 (04:21→20:22)
[2016-11-23] MEDS: Piperacillin/Tazobactam 3.375 GM in D5% in Water (Mini-Bag+) 100 ML IVPB SCH ×3 (06:48→20:09)
[2016-11-23] MEDS: Famotidine 20 MG/2 ML VIAL IVP SCH ×2 (06:49→17:17)
[2016-11-23] MEDS: *HR* OxyCODONE ER (12 HR) 10 MG TABLET PO SCH ×2 (06:50→17:17)
--- NOTE | 2016-11-23 07:48 | Internal Med Progress Note ---
Date of Encounter: 11/23/16 Time of Encounter: 07:46 - Assessment and plan (1) Sepsis Current Visit: Yes Status: Acute Qualifiers: Sepsis type: Streptococcus, unspecified Qualified Code(s): A40.9 - Streptococcal sepsis, unspecified; A40 - Streptococcal sepsis (2) Acute respiratory failure Current Visit: Yes Status: Acute Qualifiers: Respiratory failure complication: hypoxia Qualified Code(s): J96.01 - Acute respiratory failure with hypoxia (3) Cancer associated pain Current Visit: Yes Status: Chronic (4) Tobacco abuse Current Visit: Yes Status: Chronic (5) HCAP (healthcare-associated pneumonia) Current Visit: Yes Status: Acute (6) Elevated troponin Current Visit: Yes Status: Acute (7) COPD exacerbation Current Visit: No Status: Acute (8) DVT prophylaxis Current Visit: No Status: Acute (9) Hypomagnesemia Current Visit: Yes Status: Acute - Subjective Interval history: Patient is a 56-year-old male with metastatic lung cancer who follows with Dr. Kendrick. Patient presented [facility] ED one day ago ith sepsis secondary to pneumonia. Patient had a CT chest which lung cancer. He had a temperature of 101.3 heart rate of 140,22, leukocytosis with WBC of 17. Patient did receive vancomycin 1, Zosyn 3.375 mg, and Levaquin 750 mg in the ED prior to admission to the ICU. He was continued on Vancomycin 1250mg q12hr, Zosyn 3.375mg q8hr, Levaquin 750 mg daily. Patient was previously hospitalized on 11/04/16 for sepsis secondary to pneumonia. He was discharged on 11/07/16. The patient was seen. He is sitting in bed eating his lunch and does not seem to be uncomfortable. Troponin elevated and will be repeated as well as CBC and CMP. Clinically he denies any chest pain. 11/21 breathing better and has been transferred out of ICU to stepdown unit. Still needs oxygen. Breath sounds still shallow. Continue current treatment as overall breath sounds are improving. Magnesium was low therefore supplemented. On admission patient troponin were mildly elevated of significance. An echocardiogram was done which showed normal cardiac ejection fraction of 55% no wall motion abnormality in LV with a good systolic function mild diastolic dysfunction noted valvular no significant valvular abnormality. 11/22 breathing has started improving. From tomorrow we may start tapering steroids. No other complaint. 11/23 this morning temperature 101.5. Ordered blood culture 2 stat repeat CBC CMP, and chest x-ray. On November 20 Levaquin was stopped by pulmonology. Blood and sputum cultures are negative to this date. Currently patient is on IV vancomycin and Zosyn. Echocardiogram reported yesterday showing ejection fraction in the range of 65-70% no significant valvular abnormality or LV dysfunction or vegetation. It was a transthoracic echo. - Constitutional Vitals: Temp Pulse Resp BP Pulse Ox 101.5 F H 126 18 160/99 100 11/23/16 07:15 11/23/16 07:15 11/23/16 07:15 11/23/16 07:15 11/23/16 07:15 General appearance: Present: A&O X 3, underweight, answers questions appropriately - Head Head exam: Present: atraumatic, normocephalic - Eye Eye exam: Present: PERRL, conjuntiva pink, sclera anicteric Pupils: Present: PERRL - Neck Neck exam general surgery: Present: supple, trachea midline. Absent: lymphadenopathy - Respiratory Respiratory exam: Present: decreased breath sounds, wheezes. Absent: accessory muscle use, rales, rhonchi Additional comments: Left breast found shallow right good but otherwise no significant rhonchi or radius only scattered wheezing - Cardiovascular Cardiovascular exam: Present: RRR, +S1, +S2. Absent: diastolic murmur, gallop, rubs, systolic murmur - GI/Abdominal GI/Abdominal exam: Present: normal bowel sounds, soft, no peritoneal signs. Absent: distended, tenderness - Extremities Exam Extremities exam: Present: warm, radial pulses palpable and symetrical. Absent : calf tenderness, cyanotic, pedal edema - Neurological Exam Neurological exam: Present: CN II-XII intact, oriented X3, no focal deficits. Absent: pronater drift, facial droop, speech deficit - Skin Skin exam: Present: dry, intact Internal Medicine: Result - Labs CBC & Chem 7: 11/22/16 05:00 11/22/16 05:00 - ABG Interpretation ABG results: ABG ABG pH 7.44 pH Units (7.32-7.45) 11/19/16 23:45 ABG pCO2 46 mmHg (35-45) H 11/19/16 23:45 ABG pO2 62 mmHg (85-104) L 11/19/16 23:45 ABG O2 Saturation 92 % (95-98) L 11/19/16 23:45 PT/INR, D-dimer PT 14.1 Seconds (9.4-12.1) H 11/20/16 00:10 Consult Discharge Plan - Plan Referrals: Shabana Llamas DO [Primary Care Provider] - 12/04/16 10:20 am
[2016-11-23] MEDS: Budesonide/Formoterol 160/4.5 MDI IH SCH ×2 (07:51→20:22)
[2016-11-23] MEDS ORDERED: *HR* HYDROmorphone (PF) 1 MG/ML SYRINGE IVP ONE (09:27)
[2016-11-23] MEDS: Nicotine 21 MG PATCH.TD24 TD SCH (12:07)
[2016-11-23] MEDS: Sennosides/Docusate Sodium TABLET PO SCH ×2 (12:08→20:09)
[2016-11-23] MEDS: Acetaminophen 325 MG TABLET PO PRN (12:08)
[2016-11-23] MEDS: Aspirin 81 MG TAB.CHEW PO SCH (12:08)
[2016-11-23] MEDS: lamoTRIgine 25 MG TABLET PO SCH ×2 (12:08→20:09)
[2016-11-23] MEDS: Folic Acid 1 MG TABLET PO SCH (12:08)
[2016-11-23] MEDS: *HR* HYDROmorphone (PF) 1 MG/ML SYRINGE IVP PRN ×2 (17:18→20:07)
[2016-11-24] MEDS: *HR* Heparin 5,000 UNIT/ML VIAL SQ SCH ×3 (00:15→17:04)
[2016-11-24] MEDS: *HR* HYDROmorphone (PF) 1 MG/ML SYRINGE IVP PRN ×5 (00:18→19:56)
[2016-11-24] MEDS: Acetaminophen 325 MG TABLET PO PRN (00:19)
[2016-11-24] MEDS: Ipratropium/Albuterol Neb 3 ML IH SCH ×6 (00:19→20:46)
[2016-11-24 03:36] LABS: Basophils % 0.1 %; Eosinophils # 0.1 K/mcL (0.0-0.6); Eosinophils % 1.2 %; Hematocrit 26.9 % (37.5-50.1); Hemoglobin 8.7 g/dL (12.9-16.9); Immature Granulocytes % 0.5 % (0-4); Immature Platelets 2.2 % (1.1-6.1); Lymphocytes # 1.2 K/mcL (0.6-4.6); Lymphocytes % 10.6 %; Mean Corpuscular HGB Conc 32.3 g/dL (31.6-35.5); Mean Corpuscular Hemoglobin 29.2 pg (28.0-33.3); Mean Corpuscular Volume 90.3 fL (83.0-100.0); Mean Platelet Volume 9.3 fL (9.4-12.4); Monocytes # 1.1 K/mcL (0.0-1.3); Monocytes % 10.3 %; Neutrophils # 8.5 K/mcL (1.6-8.9); Platelet Count 209 K/mcL (140-400); Red Blood Count 2.98 M/mcL (4.19-5.50); Red Cell Distribution Width 13.5 % (11.5-14.5); Segmented Neutrophils % 77.3 %
[2016-11-24 03:48] LABS: Albumin/Globulin Ratio 0.5 (1.1-2.2); Bilirubin,Total 0.4 mg/dL (0.2-1.2); Calcium 8.9 mg/dL (8.6-10.8); Globulin 3.7 g/dL (2.4-3.5); Potassium 4.6 mEq/L (3.5-4.5); Total Protein 5.7 g/dL (6.0-8.3)
[2016-11-24] MEDS: Piperacillin/Tazobactam 3.375 GM in D5% in Water (Mini-Bag+) 100 ML IVPB SCH ×2 (03:55→17:05)
[2016-11-24] MEDS: Famotidine 20 MG/2 ML VIAL IVP SCH ×2 (06:05→17:05)
[2016-11-24] MEDS: *HR* OxyCODONE ER (12 HR) 10 MG TABLET PO SCH ×2 (06:05→17:05)
[2016-11-24] MEDS: 0.9 % Sodium Chloride 1,000 ML IVC SCH (06:05)
[2016-11-24] MEDS: lamoTRIgine 25 MG TABLET PO SCH ×2 (07:38→19:56)
[2016-11-24] MEDS: Sennosides/Docusate Sodium TABLET PO SCH ×2 (07:38→19:56)
[2016-11-24] MEDS: Aspirin 81 MG TAB.CHEW PO SCH (07:38)
[2016-11-24] MEDS: Folic Acid 1 MG TABLET PO SCH (07:38)
[2016-11-24] MEDS: Nicotine 21 MG PATCH.TD24 TD SCH (07:39)
[2016-11-24] MEDS: Vancomycin 1,750 MG in D5% in Water 500 ML IVPB SCH (07:44)
[2016-11-24] MEDS: Budesonide/Formoterol 160/4.5 MDI IH SCH ×2 (10:34→20:46)
--- NOTE | 2016-11-24 14:54 | Internal Med Progress Note ---
Date of Encounter: 11/24/16 Time of Encounter: 14:51 - Assessment and plan (1) Sepsis Current Visit: Yes Status: Acute Assessment and plan: improved clinically leucocytosis has resolved, lactate was 0.6 last checked. will continue IV antibiotics for HCAP which is the primary source. blood cx 11/20 is negative, repeat pending. Qualifiers: Sepsis type: Streptococcus, unspecified Qualified Code(s): A40.9 - Streptococcal sepsis, unspecified; A40 - Streptococcal sepsis (2) HCAP (healthcare-associated pneumonia) Current Visit: Yes Status: Acute Assessment and plan: recently discharged from this hospital on 11/14 on levofloxacin but patient says that he was not able to get oral antibiotics at home. patient still spiking 102 even though white count has improved. noted the creatinine went up possible from vanco toxicity, will continue the zosyn(day 6) and dc vanco. will start zyvox to cover for vanco. ECHO done yesterday with no valvular vegetations, f/u repeat blood cx. repeat cxr shows small nodular opacities in the left lung, ?pneumonia ?malignant . (3) Lung cancer Current Visit: Yes Status: Acute Assessment and plan: reports that he has received one cycle of chemotherapy so far. has possible mets in liver as well as adrenals will need f/u with oncology, has been consulted, will follow recommendation Qualifiers: Laterality: left Lung location: unspecified part of lung Qualified Code(s ): C34.92 - Malignant neoplasm of unspecified part of left bronchus or lung (4) Essential hypertension Current Visit: No Status: Chronic Assessment and plan: will continue to monitor - Subjective Interval history: Seen at the bedside, reports mild cough with yellowish productive sputum. Denies any chest pain or shortness of breath. noted temp spike of 102 last night. - Constitutional Vitals: Temp Pulse Resp BP Pulse Ox 98.0 F 110 18 113/72 98 11/24/16 07:47 11/24/16 09:29 11/24/16 11:06 11/24/16 09:29 11/24/16 11:06 General appearance: Present: A&O X 3, underweight, answers questions appropriately Exam: - Head Head exam: Present: atraumatic, normocephalic - Eye Eye exam: Present: PERRL, conjuntiva pink, sclera anicteric Pupils: Present: PERRL - Neck Neck exam general surgery: Present: supple, trachea midline. Absent: lymphadenopathy - Respiratory Respiratory exam: Present: decreased breath sounds, wheezes. Absent: accessory muscle use, rales, rhonchi - Cardiovascular Cardiovascular exam: Present: RRR, +S1, +S2. Absent: diastolic murmur, gallop, rubs, systolic murmur - GI/Abdominal GI/Abdominal exam: Present: normal bowel sounds, soft, no peritoneal signs. Absent: distended, tenderness - Extremities Exam Extremities exam: Present: warm, radial pulses palpable and symetrical. Absent : calf tenderness, cyanotic, pedal edema - Neurological Exam Neurological exam: Present: CN II-XII intact, oriented X3, no focal deficits. Absent: pronater drift, facial droop, speech deficit - Skin Skin exam: Present: dry, intact Internal Medicine: Result - Labs CBC & Chem 7: 11/24/16 03:25 11/24/16 03:25 Labs: Short CBC 11/24/16 Range/Units 03:25 WBC 11.0 (4.3-11.1) K/mcL Hgb 8.7 L (12.9-16.9) g/dL Hct 26.9 L (37.5-50.1) % Plt Count 209 (140-400) K/mcL Neutrophils # 8.5 (1.6-8.9) K/mcL BMP 11/24/16 03:25 Sodium 131 L Potassium 4.6 H Chloride 98 Carbon Dioxide 26 BUN 19 D Creatinine 3.74 H D Glucose 110 H Calcium 8.9 Liver Function 11/24/16 Range/Units 03:25 Total Bilirubin 0.4 (0.2-1.2) mg/dL AST 18 (5-34) Units/L ALT 20 (0-55) Units/L Alkaline Phosphatase 144 H (38-126) Units/L Albumin 2.0 L (3.5-5.0) g/dL - ABG Interpretation ABG results: ABG ABG pH 7.44 pH Units (7.32-7.45) 11/19/16 23:45 ABG pCO2 46 mmHg (35-45) H 11/19/16 23:45 ABG pO2 62 mmHg (85-104) L 11/19/16 23:45 ABG O2 Saturation 92 % (95-98) L 11/19/16 23:45 PT/INR, D-dimer PT 14.1 Seconds (9.4-12.1) H 11/20/16 00:10 - Impressions Impressions Chest X-Ray 11/23/16 07:43 IMPRESSION: Increasing small nodular opacities within the left lung. Given the time course of onset, an infectious/inflammatory process such as pneumonia is suspected. However, a component of tumor progression is not excluded. Continued follow-up recommended. Left perihilar mass is grossly unchanged from prior CT study. D/ / 11/23/2016 15:10:06 Modesto Boateng MD / Lisa Cherry Interpreting Provider: Modesto Boateng MD Consult Discharge Plan - Plan Referrals: Shabana Llamas DO [Primary Care Provider] - 12/04/16 10:20 am
[2016-11-25] MEDS: *HR* Heparin 5,000 UNIT/ML VIAL SQ SCH ×3 (00:11→17:00)
[2016-11-25] MEDS: *HR* HYDROmorphone (PF) 1 MG/ML SYRINGE IVP PRN ×3 (00:11→19:55)
[2016-11-25] MEDS: Ipratropium/Albuterol Neb 3 ML IH SCH ×6 (00:55→20:27)
[2016-11-25] MEDS: Piperacillin/Tazobactam 3.375 GM in D5% in Water (Mini-Bag+) 100 ML IVPB SCH ×2 (04:00→16:59)
[2016-11-25 04:12] LABS: Basophils % 0.3 %; Eosinophils # 0.1 K/mcL (0.0-0.6); Eosinophils % 1.4 %; Hematocrit 26.3 % (37.5-50.1); Hemoglobin 8.5 g/dL (12.9-16.9); Immature Granulocytes % 0.5 % (0-4); Immature Platelets 2.2 % (1.1-6.1); Lymphocytes # 1.4 K/mcL (0.6-4.6); Lymphocytes % 15.2 %; Mean Corpuscular HGB Conc 32.3 g/dL (31.6-35.5); Mean Corpuscular Hemoglobin 29.5 pg (28.0-33.3); Mean Corpuscular Volume 91.3 fL (83.0-100.0); Mean Platelet Volume 9.4 fL (9.4-12.4); Monocytes % 10.9 %; Neutrophils # 6.7 K/mcL (1.6-8.9); Platelet Count 243 K/mcL (140-400); Red Blood Count 2.88 M/mcL (4.19-5.50); Red Cell Distribution Width 13.7 % (11.5-14.5); Segmented Neutrophils % 71.7 %
[2016-11-25 04:25] LABS: Albumin 1.9 g/dL (3.5-5.0); Albumin/Globulin Ratio 0.5 (1.1-2.2); Bilirubin,Total 0.4 mg/dL (0.2-1.2); Calcium 9.4 mg/dL (8.6-10.8); Globulin 3.9 g/dL (2.4-3.5); Total Protein 5.8 g/dL (6.0-8.3)
[2016-11-25] MEDS: *HR* OxyCODONE ER (12 HR) 10 MG TABLET PO SCH ×2 (06:25→17:00)
[2016-11-25] MEDS: Famotidine 20 MG/2 ML VIAL IVP SCH (06:26)
[2016-11-25] MEDS: Sennosides/Docusate Sodium TABLET PO SCH ×2 (07:37→19:56)
[2016-11-25] MEDS: Nicotine 21 MG PATCH.TD24 TD SCH (07:37)
[2016-11-25] MEDS: Aspirin 81 MG TAB.CHEW PO SCH (07:37)
[2016-11-25] MEDS: Folic Acid 1 MG TABLET PO SCH (07:37)
[2016-11-25] MEDS: lamoTRIgine 25 MG TABLET PO SCH ×2 (07:41→19:56)
[2016-11-25] MEDS: Budesonide/Formoterol 160/4.5 MDI IH SCH ×2 (07:45→20:27)
--- NOTE | 2016-11-25 08:15 | Oncology Inp Progress Note ---
Date of Encounter: 11/25/16 Time of Encounter: 07:59 Oncology: Subj Interval history: History of present illness: Patient seen and examined at bedside. Chart reviewed for interval details and appreciate ongoing management by hospital team. Currently been treated for sepsis due to healthcare associated pneumonia. He is on appropriate supportive measures including broad-spectrum antibody coverage. Cultures negative to date. Repeat pending. He is still having intractable cough. Being managed supportively. Recent CT chest abdomen pelvis 11/20/16 raise concern about lung cancer progression including progressive left lung disease and mediastinal adenopathy. There is concern about new liver metastasis and adrenal disease. No other new issues. Review of systems: 12 point review of systems as noted above.All other systems are negative: Physical exam: Vital Signs Temp 100.2 F H 11/25/16 07:20 Pulse 130 11/25/16 07:49 Resp 20 11/25/16 07:37 BP 154/94 11/25/16 07:20 Pulse Ox 97 11/25/16 07:37 Intake & Output 11/24/16 11/25/16 11/25/16 12:59 00:59 12:59 Intake Total 1220 / 1220 340 / 340 Output Total 450 / 450 600 / 600 Balance 1220 / 1220 -110 / -110 -600 / -600 Weight 75.6 kg 76.3 kg Intake: IV Fluids 1100 / 1100 100 / 100 0.9 % Sodium Chloride 1, 1000 / 1000 000 ML @ 80 mls/hr IVC . [id number] [facility] Rx#: [id number] Zosyn 3.375 GM In 100 / 100 100 / 100 Dextrose 5% (Minibag+) 100 ML 100 ML @ 25 mls/hr IVPB Q12H [facility] Rx#: [id number] Oral 120 / 120 240 / 240 Output: Urine 450 / 450 600 / 600 Other: Meal Breakfast Dinner Percent of Meal Consumed 75% 5% Stool Size Small Stool Consistency formed # Voids 1 # Bowel Movements 1 GENERAL: Alert and oriented, lethargic appearing. Mental Status: Affect appropriate for circumstances Chest: Diminished breath sounds bilaterally. No wheezing. Skin: No rashes or petechiae. No evidence of skin malignancy Extremities: No edema. No calf swelling or tenderness. No joint deformity. Neurologic: Global weakness but no focal sensorimotor abnormalities. Results: Laboratory Last Values WBC 9.3 K/mcL (4.3-11.1) 11/25/16 03:50 RBC 2.88 M/mcL (4.19-5.50) L 11/25/16 03:50 Hgb 8.5 g/dL (12.9-16.9) L 11/25/16 03:50 Hct 26.3 % (37.5-50.1) L 11/25/16 03:50 MCV 91.3 fL (83.0-100.0) 11/25/16 03:50 MCH 29.5 pg (28.0-33.3) 11/25/16 03:50 MCHC 32.3 g/dL (31.6-35.5) 11/25/16 03:50 RDW 13.7 % (11.5-14.5) 11/25/16 03:50 Plt Count 243 K/mcL (140-400) 11/25/16 03:50 MPV 9.4 fL (9.4-12.4) 11/25/16 03:50 Immature Gran % 0.5 % (0-4) 11/25/16 03:50 Seg Neutrophils % 71.7 % 11/25/16 03:50 Lymphocytes % 15.2 % 11/25/16 03:50 Monocytes % 10.9 % 11/25/16 03:50 Eosinophils % 1.4 % 11/25/16 03:50 Basophils % 0.3 % 11/25/16 03:50 Neutrophils # 6.7 K/mcL (1.6-8.9) 11/25/16 03:50 Lymphocytes # 1.4 K/mcL (0.6-4.6) 11/25/16 03:50 Monocytes # 1.0 K/mcL (0.0-1.3) 11/25/16 03:50 Eosinophils # 0.1 K/mcL (0.0-0.6) 11/25/16 03:50 Basophils # 0.0 K/mcL (0.0-0.2) 11/25/16 03:50 Immature Plt Fraction 2.2 % (1.1-6.1) 11/25/16 03:50 PT 14.1 Seconds (9.4-12.1) H 11/20/16 00:10 INR 1.3 11/20/16 00:10 APTT 24.9 Seconds (26.0-36.0) L 11/20/16 00:10 ABG pH 7.44 pH Units (7.32-7.45) 11/19/16 23:45 ABG pCO2 46 mmHg (35-45) H 11/19/16 23:45 ABG pO2 62 mmHg (85-104) L 11/19/16 23:45 ABG HCO3 31.2 mEQ/L (21-27) H 11/19/16 23:45 ABG Total CO2 32.6 mEq/L (20-26) H 11/19/16 23:45 ABG O2 Saturation 92 % (95-98) L 11/19/16 23:45 ABG Base Excess 6.1 mEq/L (-2.0 to 3.0) H 11/19/16 23:45 Liter Flow 1.5 L/MIN 11/19/16 23:45 Blood Gas Modality NC 11/19/16 23:45 Sodium 135 mEq/L (136-145) L 11/25/16 03:50 Potassium 5.0 mEq/L (3.5-4.5) H 11/25/16 03:50 Chloride 100 mEq/L (98-109) 11/25/16 03:50 Carbon Dioxide 26 mEq/L (19-29) 11/25/16 03:50 BUN 25 mg/dL (8-26) 11/25/16 03:50 Creatinine 5.01 mg/dL (0.72-1.25) H 11/25/16 03:50 Est GFR ( Amer) 14 (> 60) L 11/25/16 03:50 Est GFR (Non-Af Amer) 12 (> 60) L 11/25/16 03:50 BUN/Creatinine Ratio 5 (6-26) L 11/25/16 03:50 Glucose 84 mg/dL (70-99) 11/25/16 03:50 POC Glucose 105 (58-89) H 11/22/16 16:27 Calculated Osmolality 284 (280-300) 11/25/16 03:50 Lactic Acid 0.6 mmol/L (0.5-2.2) 11/20/16 04:43 Calcium 9.4 mg/dL (8.6-10.8) 11/25/16 03:50 Phosphorus 3.3 mg/dL (2.3-4.7) 11/20/16 00:10 Magnesium 1.1 mg/dL (1.6-2.6) L 11/20/16 04:43 Total Bilirubin 0.4 mg/dL (0.2-1.2) 11/25/16 03:50 Direct Bilirubin 0.3 mg/dL (0.0-0.5) 11/20/16 00:10 Indirect Bilirubin 0.3 mg/dL (0.0-1.2) 11/20/16 00:10 AST 17 Units/L (5-34) 11/25/16 03:50 ALT 16 Units/L (0-55) 11/25/16 03:50 Alkaline Phosphatase 138 Units/L (38-126) H 11/25/16 03:50 Troponin I 0.05 ng/mL (0-0.03) H* 11/20/16 16:26 Serum Total Protein 5.8 g/dL (6.0-8.3) L 11/25/16 03:50 Albumin 1.9 g/dL (3.5-5.0) L 11/25/16 03:50 Globulin 3.9 g/dL (2.4-3.5) H 11/25/16 03:50 Albumin/Globulin Ratio 0.5 (1.1-2.2) L 11/25/16 03:50 Amylase 27 Units/L (25-125) 11/20/16 00:10 Lipase 6 Units/L (8-78) L 11/20/16 00:10 Vancomycin Trough 71.6 mcg/mL (10-20) H* 11/24/16 03:25 Random Vancomycin 58.2 mcg/mL 11/25/16 03:50 Radiographic studies: I personally reviewed and interpreted patient's most recent imaging studies dated 11/20/16. I discussed the findings with the patient today. Abdomen/Pelvis CT 11/20/16 23:32 IMPRESSION: Overall progression of disease compared to the prior studies. The left lung mass has increased in size with worsening surrounding small airspace and nodular opacities. Superimposed infection cannot be excluded. In addition there is diffuse irregular septal thickening throughout the left lung which is suspicious for lymphangitic spread of tumor, increasing size of right pulmonary nodules, worsening mediastinal/supraclavicular lymphadenopathy, increasing size of bilateral adrenal lesion, new tiny hypodensity in the right hepatic lobe and increased retroperitoneal para-aortic lymph nodes. D/ / 11/20/2016 07:33:45 Tr Dutta MD / radha Interpreting Provider: Tr Dutta MD Chest CT 11/20/16 23:32 IMPRESSION: Overall progression of disease compared to the prior studies. The left lung mass has increased in size with worsening surrounding small airspace and nodular opacities. Superimposed infection cannot be excluded. In addition there is diffuse irregular septal thickening throughout the left lung which is suspicious for lymphangitic spread of tumor, increasing size of right pulmonary nodules, worsening mediastinal/supraclavicular lymphadenopathy, increasing size of bilateral adrenal lesion, new tiny hypodensity in the right hepatic lobe and increased retroperitoneal para-aortic lymph nodes. D/ / 11/20/2016 07:33:45 Tr Dutta MD / radha Interpreting Provider: Tr Dutta MD Chest X-Ray 11/23/16 07:43 IMPRESSION: Increasing small nodular opacities within the left lung. Given the time course of onset, an infectious/inflammatory process such as pneumonia is suspected. However, a component of tumor progression is not excluded. Continued follow-up recommended. Left perihilar mass is grossly unchanged from prior CT study. D/ / 11/23/2016 15:10:06 Modesto Boateng MD / Lisa Cherry Interpreting Provider: Modesto Boateng MD Impression/recommendations: Lung cancer: Metastatic adenocarcinoma, left lung primary. Unfortunately, he is unable to receive 1 dose of chemotherapy to the dates which was on 09/24/16. Rest of his treatment has been on hold due to clinical deterioration with intercurrent illness including multiple bouts of recurrent pneumonia requiring hospitalization. I'm hoping to see some improvement in his overall condition at the end of his hospitalization following which we'll try to get him back on treatment as soon as possible. Following recent updates to management of advanced lung adenocarcinoma with FDA approval of combination chemotherapy with immunotherapy, we'll add keytruda to his regimen starting from his next treatment. We'll follow the patient along side you during this hospitalization but please do not hesitate to call regarding interval hematologic questions as they arise. Thank you for your excellent ongoing care for allowing us to see him while in- house. This report was created using voice recognition software and may contain errors. It was signed but not edited to expedite communication. - Constitutional Vitals: Vital Signs Temp Pulse Resp BP Pulse Ox 11/25/16 07:49 130 11/25/16 07:37 20 97 11/25/16 07:20 100.2 F H 124 22 154/94 96 11/25/16 04:28 17 90 11/25/16 04:05 101.0 F H 122 16 135/75 94 11/25/16 00:55 16 96 11/25/16 00:05 98.1 F 128 14 148/91 94 11/24/16 20:46 18 95 11/24/16 19:35 100.1 F H 128 14 165/99 95 11/24/16 16:21 18 96 11/24/16 14:56 100.4 F H 118 20 151/92 96 11/24/16 11:06 18 98 11/24/16 09:29 110 16 113/72 96 Intake and Output 11/24/16 11/25/16 11/25/16 16:59 00:59 08:59 Intake Total 360 / 360 100 / 100 Output Total 450 / 450 600 / 600 Balance 360 / 360 -350 / -350 -600 / -600 Intake: IV Fluids 100 / 100 Zosyn 3.375 GM In 100 / 100 Dextrose 5% (Minibag+) 100 ML 100 ML @ 25 mls/hr IVPB Q12H [facility] Rx#: [id number] Oral 360 / 360 Output: Urine 450 / 450 600 / 600 Other: Meal Lunch Dinner Percent of Meal Consumed 70% 5% Stool Size Small Stool Consistency formed # Voids 1 # Bowel Movements 1 Weight 76.3 kg Patient Weight 11/26/16 00:59 Weight 76.3 kg Oncology: Obj Data - Labs CBC & Chem 7: 11/25/16 03:50 11/25/16 03:50 Labs: Laboratory Results - last 24 hr 11/25/16 11/25/16 11/25/16 03:50 03:50 03:50 WBC 9.3 RBC 2.88 L Hgb 8.5 L Hct 26.3 L MCV 91.3 MCH 29.5 MCHC 32.3 RDW 13.7 Plt Count 243 MPV 9.4 Immature Gran % 0.5 Seg Neutrophils % 71.7 Lymphocytes % 15.2 Monocytes % 10.9 Eosinophils % 1.4 Basophils % 0.3 Neutrophils # 6.7 Lymphocytes # 1.4 Monocytes # 1.0 Eosinophils # 0.1 Basophils # 0.0 Immature Plt Fraction 2.2 Sodium 135 L Potassium 5.0 H Chloride 100 Carbon Dioxide 26 BUN 25 Creatinine 5.01 H Est GFR ( Amer) 14 L Est GFR (Non-Af Amer) 12 L BUN/Creatinine Ratio 5 L Glucose 84 Calculated Osmolality 284 Calcium 9.4 Total Bilirubin 0.4 AST 17 ALT 16 Alkaline Phosphatase 138 H Serum Total Protein 5.8 L Albumin 1.9 L Globulin 3.9 H Albumin/Globulin Ratio 0.5 L Random Vancomycin 58.2 - ABG Interpretation ABG results: ABG ABG pH 7.44 pH Units (7.32-7.45) 11/19/16 23:45 ABG pCO2 46 mmHg (35-45) H 11/19/16 23:45 ABG pO2 62 mmHg (85-104) L 11/19/16 23:45 ABG O2 Saturation 92 % (95-98) L 11/19/16 23:45 PT/INR, D-dimer PT 14.1 Seconds (9.4-12.1) H 11/20/16 00:10 Consult Discharge Plan - Plan Referrals: Shabana Llamas DO [Primary Care Provider] - 12/04/16 10:20 am
[2016-11-25 11:24] LABS: % Iron Saturation 10 % (20-55); Iron 14 mcg/dL (65-175); Transferrin 103 mg/dL (174-364)
[2016-11-25 12:19] LABS: Folate 16.2 ng/mL (7.0-31.4)
[2016-11-25 13:00] LABS: Adenovirus Not Detected (Not Detect); Bordetella Pertussis Not Detected (Not Detect); Chlamydophila pneumoniae Not Detected (Not Detect); Coronavirus 229E Not Detected (Not Detect); Coronavirus HKU1 Not Detected (Not Detect); Coronavirus NL63 Not Detected (Not Detect); Coronavirus OC43 Not Detected (Not Detect); Human Metapneumovirus Not Detected (Not Detect); Human Rhinovirus/Enterovirus Not Detected (Not Detect); Influenza A Subtype 2009 H1 Not Detected (Not Detect); Influenza A Untypeable Not Detected (Not Detect); Influenza B Not Detected (Not Detect); Mycoplasma pneumoniae Not Detected (Not Detect); Parainfluenza Virus 1 Not Detected (Not Detect); Parainfluenza Virus 2 Not Detected (Not Detect); Parainfluenza Virus 3 Not Detected (Not Detect); Parainfluenza Virus 4 Not Detected (Not Detect); Respiratory Syncytial Virus Not Detected (Not Detect)
--- NOTE | 2016-11-25 14:43 | Internal Med Progress Note ---
Date of Encounter: 11/25/16 Time of Encounter: 14:37 - Assessment and plan (1) Sepsis Current Visit: Yes Status: Acute Assessment and plan: leucocytosis has resolved, lactate was 0.6 last checked. 2/2 HCAP which is the primary source, unclear if he has an unknown source given persistent fever. blood cx negative so far, RIP is negative will consult ID for possible continuation or change in IV antibiotics. Qualifiers: Sepsis type: sepsis due to unspecified organism Qualified Code(s): A41.9 - Sepsis, unspecified organism (2) HCAP (healthcare-associated pneumonia) Current Visit: Yes Status: Acute Assessment and plan: recently discharged from this hospital on 11/14 on levofloxacin but patient says that he was not able to get oral antibiotics at home. patient still spiking 101 even though white count has improved. noted the creatinine went up possible from vanco toxicity, will continue the zosyn(day 6) and dc vanco. vanco level still therapeutic at 58 today, will hold off on zyvox for now. will follow ID recommendations on antibiotics, RIP is negative ECHO done yesterday with no valvular vegetations, f/u repeat blood cx. repeat cxr shows new small nodular opacities in the left lung, ?pneumonia ? malignant . (3) Lung cancer Current Visit: Yes Status: Acute Assessment and plan: reports that he has received one cycle of chemotherapy so far. has possible mets in liver as well as adrenals appreciate oncology recommendations Qualifiers: Laterality: left Lung location: unspecified part of lung Qualified Code(s ): C34.92 - Malignant neoplasm of unspecified part of left bronchus or lung (4) Essential hypertension Current Visit: No Status: Chronic Assessment and plan: will continue to monitor (5) Acute kidney injury Current Visit: Yes Status: Acute Assessment and plan: most likely 2/2 vancomycin induced toxicity. noted high trough levels at 71 which has now decreased to 58 today. decreased urine output as per the charting, has mild hyperkalemia vanco has been held. will consult renal for further assistance in managing this ARMAAN. monitor I/O s , will start IVF at 100 for now. - Subjective Interval history: Seen at the bedside, reports cough with yellowish productive sputum. Denies any chest pain or shortness of breath. noted temp spike of 101 this morning, reports chills with the fever, denies any n/v/d. c/o mild abdominal discomfort. - Constitutional Vitals: Temp Pulse Resp BP Pulse Ox 98.2 F 118 18 119/84 99 11/25/16 14:18 11/25/16 14:18 11/25/16 14:18 11/25/16 14:18 11/25/16 14:18 General appearance: Present: A&O X 3, underweight, answers questions appropriately Exam: Exam: - Head Head exam: Present: atraumatic, normocephalic - Eye Eye exam: Present: PERRL, conjuntiva pink, sclera anicteric Pupils: Present: PERRL - Neck Neck exam general surgery: Present: supple, trachea midline. Absent: lymphadenopathy - Respiratory Respiratory exam: Present: b/l decreased breath sounds, Absent: accessory muscle use, rales, rhonchi - Cardiovascular Cardiovascular exam: Present: RRR, +S1, +S2. Absent: diastolic murmur, gallop, rubs, systolic murmur - GI/Abdominal GI/Abdominal exam: Present: normal bowel sounds, soft, no peritoneal signs. Absent: distended, tenderness - Extremities Exam Extremities exam: Present: warm, radial pulses palpable and symetrical. Absent : calf tenderness, cyanotic, pedal edema - Neurological Exam Neurological exam: Present: CN II-XII intact, oriented X3, no focal deficits. Absent: pronater drift, facial droop, speech deficit - Skin Skin exam: Present: dry, intact Internal Medicine: Result - Labs CBC & Chem 7: 11/25/16 03:50 11/25/16 03:50 Labs: Short CBC 11/25/16 Range/Units 03:50 WBC 9.3 (4.3-11.1) K/mcL Hgb 8.5 L (12.9-16.9) g/dL Hct 26.3 L (37.5-50.1) % Plt Count 243 (140-400) K/mcL Neutrophils # 6.7 (1.6-8.9) K/mcL BMP 11/25/16 03:50 Sodium 135 L Potassium 5.0 H Chloride 100 Carbon Dioxide 26 BUN 25 Creatinine 5.01 H Glucose 84 Calcium 9.4 Liver Function 11/25/16 Range/Units 03:50 Total Bilirubin 0.4 (0.2-1.2) mg/dL AST 17 (5-34) Units/L ALT 16 (0-55) Units/L Alkaline Phosphatase 138 H (38-126) Units/L Albumin 1.9 L (3.5-5.0) g/dL - ABG Interpretation ABG results: ABG ABG pH 7.44 pH Units (7.32-7.45) 11/19/16 23:45 ABG pCO2 46 mmHg (35-45) H 11/19/16 23:45 ABG pO2 62 mmHg (85-104) L 11/19/16 23:45 ABG O2 Saturation 92 % (95-98) L 11/19/16 23:45 PT/INR, D-dimer PT 14.1 Seconds (9.4-12.1) H 11/20/16 00:10 Consult Discharge Plan - Plan Referrals: Shabana Llamas DO [Primary Care Provider] - 12/04/16 10:20 am
--- NOTE | 2016-11-25 15:34 | Infectious Disease Consult ---
Date of Encounter: 11/25/16 Time of Encounter: 15:32 Assessment and Plan (1) Sepsis Status: Acute Assessment and plan: Patient has fevers. Etiology for the fever is not clear. Most likely it's due to pneumonia that is obstructive but other sources need to be ruled out. Patient really had a respiratory infectious panel which has been negative. Sputum culture in the past have also been negative. Patient also has significant abdominal pain, concern for pancreatitis. Patient is known to be heavy drinker quit wringing about 2 months ago. Not sure of the fever could also be due to the malignancy itself. I will repeat CT chest to see if the pneumonia is getting worse and if the patient needs a bronchoscopy. I will check urine legionella antigen. I will check lipase and amylase level I will check CT abdomen and pelvis with oral contrast I will repeat blood cultures 2 I will check pro-calcitonin level. Continue to hold vancomycin since the Vanco level in this patient will still probably very high and continue Zosyn for now. Qualifiers: Sepsis type: sepsis due to unspecified organism Qualified Code(s): A41.9 - Sepsis, unspecified organism (2) Abdominal pain Status: Acute Assessment and plan: Etiology not clear. Previous CT on 11/20/2016 showed no abnormality. Concern for pancreatitis versus other We'll check lipase and amylase. LFTs have already been checked. Repeat CT abdomen and pelvis with oral contrast. Qualifiers: Abdominal location: epigastric Qualified Code(s): R10.13 - Epigastric pain (3) Acute kidney injury Status: Acute Assessment and plan: Due to vancomycin toxicity. Creatinine clearance under 20 Vancomycin have been held and Zosyn has been dose adjusted to every 12 hours per pharmacy protocol (4) Pneumonia Status: Acute Assessment and plan: Clinically patient states that he is having worsening cough. He also mentions more sputum production. If this is obstructive pneumonia it might be getting worse. I will repeat CT chest and check urine legionella antigen for atypical. Respiratory infectious panel has been noted Qualifiers: Pneumonia type: due to unspecified organism Laterality: left Lung location: unspecified part of lung Qualified Code(s): J18.9 - Pneumonia, unspecified organism (5) Lung cancer Status: Acute Assessment and plan: Diagnosed about 3 months ago. First chemotherapy session was about 09/24/16 Appears to be getting worse with metastases: Hematology oncology following. Not sure what the prognosis is. Qualifiers: Laterality: left Lung location: unspecified part of lung Qualified Code(s ): C34.92 - Malignant neoplasm of unspecified part of left bronchus or lung (6) CVA (cerebral vascular accident) Status: Chronic Qualifiers: CVA mechanism: unspecified Qualified Code(s): I63.9 - Cerebral infarction, unspecified (7) Vancomycin poisoning Status: Acute Assessment and plan: Initial Vanco trough of 71.5 Qualifiers: Encounter type: initial encounter Injury intent: accidental or unintentional Qualified Code(s): T36.8X1A - Poisoning by other systemic antibiotics, accidental (unintentional), initial encounter (8) Cancer associated pain Status: Chronic Infectious Disease HPI - Data of Consult Patient: new to practice Consult date: 11/25/16 Requesting Physician: Enrique Marlow MD Primary Care Provider: Shabana Llamas DO - Consult Narrative Reason for consult: severe sepsis History of present illness: Mr. Bliss is a 56 year old male Patient is a 56-year-old gentleman with a past medical history mentioned below including history of CVA, COPD, lung CA with metastases status post 1 session of chemotherapy, hypertension, hyperlipidemia and anxiety presented to the emergency department on 11/20/2016 with shortness of breath, cough with sputum production, dyspnea on exertion and abdominal pain. Patients symptoms apparently have been going on for a few days prior to admission. Since admission [facility] presenting temperature was 103.3 Fahrenheit, tachycardic with a heart rate of 140 and a presenting WBC of 14.9 with normal differential. A CT chest abdomen and pelvis were done on 11/20/16 which revealed progression of the disease. Left lung mass increased in size with a worsening surrounding smalland nodular opacity. CT abdomen and pelvis revealed increased size of bilateral adrenal lesions, new tiny hypodensity in the right hepatic lobe and increased retroperitoneal para-aortic lymph nodes. Blood cultures were obtained on 11/20 and 11/23 all of which have been no growth. On patient had respiratory infectious panel done which is negative. Patient was started on empiric vancomycin and Zosyn, we were consulted to evaluate the patient and make further recommendations. On further questioning, patient denies any headache no neck stiffness no toothache no oral lesions no earache no sore throat no sinus pressure. Patient denies any joint pain or effusion. Patient denies any rash. Patient admits to the shortness of breath and he said he has more sputum production now and also states that hes been having abdominal pain that he described as right upper quadrant. Rest of the review of system was unremarkable. Patient denied any urinary symptoms. Patient has a port in the right chest that was placed about 2 months ago and is not painful there is no surrounding erythema its not tender to the touch. CC: Enrique Marlow MD Past Med Surg Social Fam HX - Past Medical History Medical history: hyperlipidemia, hypertension, other, CVA, cancer, CHF, COPD Psychiatric history: anxiety, depression - Past Surgical History Surgical History: herniorrhaphy, orthopedic, other - Social History Smoking Status: Current every day smoker Packs per day: 0.5 Smokeless Tobacco Status: No Alcohol use: none Drug use: marijuana - Family History Father Adopted: No Family Member Ethnicity: Non- Living Status: Hx Family Cancer: Yes Infectious Disease-CN:Meds Buspirone HCl [Buspar] 7.5 mg PO BID 04/21/16 [History] Gabapentin 600 mg PO TID 04/21/16 [History] SUMAtriptan Succinate [Imitrex] 100 mg PO DAILY PRN 04/21/16 [History] lamoTRIgine [Lamictal] 75 mg PO BID 04/21/16 [History] Ipratropium/Albuterol Neb [Duoneb] 3 ml IH Q6HR PRN 07/21/16 [History] Tiotropium [Spiriva] 1 cap IH DAILY 07/21/16 [History] Metoprolol Succinate 100 mg PO DAILY 09/05/16 [History] Albuterol Sulfate [Albuterol Inhaler] 2 puff IH Q6H PRN 09/08/16 [History] Zolpidem [Ambien] 5 mg PO HS 09/14/16 [History] Folic Acid 1 mg PO DAILY #30 tablet 09/28/16 [Rx] Loratadine [Claritin] 10 mg PO AD #60 tablet 09/28/16 [Rx] Omeprazole [PriLOSEC] 20 mg PO DAILY #30 capsule 09/28/16 [Rx] Ondansetron [Zofran] 8 mg PO Q8HR PRN #90 tablet 09/28/16 [Rx] Prochlorperazine Maleate [Compazine] 10 mg PO Q6HR PRN #60 tablet 09/28/16 [Rx] Oxymetazoline [Afrin] 15 spray NS AD PRN #1 bottle 10/06/16 [Rx] Guaifenesin [Guaifenesin ER] 1,200 mg PO BID #60 tab.er.12h 10/22/16 [Rx] OxyCODONE/APAP 10/325 [Percocet 10/325 MG] 1 each PO Q4HR PRN 10/22/16 [History] Lidocaine/Prilocaine CREAM [Emla] 5 gm TP AD PRN 11/04/16 [History] OxyCODONE ER (12 HR) [OxyCONTIN] 30 mg PO Q12HR #30 tab.er.12h 11/07/16 [Rx] diazePAM [Valium] 10 mg PO BID PRN #30 tablet 11/07/16 [Rx] Aspirin [Aspirin] 81 mg PO DAILY 11/20/16 [History] OLANZapine [Zyprexa] 2.5 mg PO DAILY 11/20/16 [History] Umeclidinium [place] [Incruse Ellipta] 1 puff IH DAILY 11/20/16 [History] Allergies doxycycline Allergy (Verified 10/22/16 16:08) Rash hydrocodone [From Vicodin] Allergy (Verified 10/22/16 16:08) Rash lidocaine Allergy (Verified 10/22/16 16:08) Rash propoxyphene [From Darvocet-N] Allergy (Verified 10/22/16 16:08) Rash morphine patches Allergy (Intermediate, Uncoded 10/22/16 16:08) Rash Review of systems: 10 point review of systems done, negative other for what is mentioned in the history of present illness. Exam - Constitutional Vitals: Temp Pulse Resp BP Pulse Ox 98.2 F 109 18 119/84 99 11/25/16 14:18 11/25/16 15:00 11/25/16 14:18 11/25/16 14:18 11/25/16 14:18 General appearance: febrile, no acute distress Exam: Pleasant, stable does not appear toxic - Head Head exam: Present: atraumatic, normocephalic - Eye Eye exam: Present: EOMI, PERRL, sclera anicteric - ENT ENT exam: Present: mucous membranes dry Additional comments: No oral lesions noted - Neck Neck exam: Present: full ROM. Absent: meningismus - Respiratory Respiratory exam: Present: wheezes Additional comments: Air sounds audible both lung gill but there is some diffuse wheezing and rhonchi. Chest expanding symmetrically Port in the right chest appears intact with no signs of infection - Cardiovascular Cardiovascular exam: Present: RRR, +S1, +S2 - GI/Abdominal Additional comments: Just to use tenderness in the right upper quadrant epigastric and left upper quadrant area. Tenderness on palpation but no rebound appreciated. Bowel sounds are hypoactive - Extremities Exam Extremities exam: Present: normal inspection. Absent: pedal edema Additional comments: No joint effusion, no signs of septic arthritis - Neurological Exam Neurological exam: Present: alert, oriented X3. Absent: speech deficit - Psychiatric Psychiatric exam: Present: normal affect, normal mood - Skin Skin exam: Absent: rash Infectious Disease CN: Results - Labs CBC & Chem 7: 11/25/16 03:50 11/25/16 03:50 Cultures: Cultures 11/23/16 08:30 Blood Culture - Preliminary Peripheral Venipuncture No growth. 11/23/16 08:39 Blood Culture - Preliminary Peripheral Venipuncture No growth. 11/20/16 15:00 Sputum Culture - Final Sputum Serology: Serology 11/25/16 Range/Units 11:30 Chlamy pneumoniae PCR Not Detected (Not Detect) Adenovirus (PCR) Not Detected (Not Detect) B. pertussis DNA (PCR) Not Detected (Not Detect) Coronavirus OC43 (PCR) Not Detected (Not Detect) Coronavirus HKU1 (PCR) Not Detected (Not Detect) Coronavirus 229E (PCR) Not Detected (Not Detect) Coronavirus NL63 (PCR) Not Detected (Not Detect) Human Metapneumovir PCR Not Detected (Not Detect) Influenza A (H1) PCR Not Detected (Not Detect) Influ A (H1N1/09) PCR Not Detected (Not Detect) Influenza A (H3) PCR Not Detected (Not Detect) Influenza A Untype (PCR) Not Detected (Not Detect) Influenza Type B (PCR) Not Detected (Not Detect) M.pneumoniae DNA (PCR) Not Detected (Not Detect) Parainfluenza 1 (PCR) Not Detected (Not Detect) Parainfluenza 2 (PCR) Not Detected (Not Detect) Parainfluenza 3 (PCR) Not Detected (Not Detect) Parainfluenza 4 (PCR) Not Detected (Not Detect) RSV (PCR) Not Detected (Not Detect) Entero/Rhino (PCR) Not Detected (Not Detect) Consult Discharge Plan - Plan Referrals: Shabana Llamas DO [Primary Care Provider] - 12/04/16 10:20 am
[2016-11-25 16:40] LABS: Amylase 18 Units/L (25-125)
[2016-11-25 16:41] LABS: Lipase < 10 Units/L (8-78)
[2016-11-25] MEDS: 0.9 % Sodium Chloride 1,000 ML IVC SCH (16:59)
[2016-11-26] MEDS: Ipratropium/Albuterol Neb 3 ML IH SCH ×7 (00:14→23:03)
[2016-11-26] MEDS: *HR* Heparin 5,000 UNIT/ML VIAL SQ SCH ×3 (00:20→15:57)
[2016-11-26 03:38] LABS: Basophils % 0.2 %; Eosinophils # 0.2 K/mcL (0.0-0.6); Eosinophils % 1.5 %; Hematocrit 26.3 % (37.5-50.1); Hemoglobin 8.4 g/dL (12.9-16.9); Immature Granulocytes % 0.5 % (0-4); Lymphocytes # 1.6 K/mcL (0.6-4.6); Lymphocytes % 15.8 %; Mean Corpuscular HGB Conc 31.9 g/dL (31.6-35.5); Mean Corpuscular Hemoglobin 29.1 pg (28.0-33.3); Mean Platelet Volume 9.2 fL (9.4-12.4); Neutrophils # 7.2 K/mcL (1.6-8.9); Platelet Count 241 K/mcL (140-400); Red Blood Count 2.89 M/mcL (4.19-5.50); Red Cell Distribution Width 13.7 % (11.5-14.5)
[2016-11-26] MEDS: Piperacillin/Tazobactam 3.375 GM in D5% in Water (Mini-Bag+) 100 ML IVPB SCH ×2 (03:43→15:57)
[2016-11-26] MEDS: 0.9 % Sodium Chloride 1,000 ML IVC SCH ×2 (03:43→15:15)
[2016-11-26] MEDS: *HR* HYDROmorphone (PF) 1 MG/ML SYRINGE IVP PRN (03:44)
[2016-11-26 03:51] LABS: Albumin 1.9 g/dL (3.5-5.0); Albumin/Globulin Ratio 0.5 (1.1-2.2); Bilirubin,Total 0.4 mg/dL (0.2-1.2); Calcium 9.2 mg/dL (8.6-10.8); Globulin 3.8 g/dL (2.4-3.5); Potassium 4.8 mEq/L (3.5-4.5); Total Protein 5.7 g/dL (6.0-8.3)
[2016-11-26] MEDS: Nicotine 21 MG PATCH.TD24 TD SCH (07:18)
[2016-11-26] MEDS: lamoTRIgine 25 MG TABLET PO SCH ×2 (07:18→20:09)
[2016-11-26] MEDS: *HR* OxyCODONE ER (12 HR) 10 MG TABLET PO SCH ×2 (07:19→16:48)
[2016-11-26] MEDS: Sennosides/Docusate Sodium TABLET PO SCH ×2 (07:19→20:09)
[2016-11-26] MEDS: Folic Acid 1 MG TABLET PO SCH (07:19)
[2016-11-26] MEDS: Aspirin 81 MG TAB.CHEW PO SCH (07:19)
[2016-11-26] MEDS: Budesonide/Formoterol 160/4.5 MDI IH SCH ×2 (07:41→19:55)
--- NOTE | 2016-11-26 11:05 | Nephrology Consult Note ---
Date of Encounter: 11/26/16 Time of Encounter: 10:30 Assessment and Plan (1) Acute kidney injury Current Visit: Yes Status: Acute ARMAAN in setting of Vanco toxicity, sepsis, PNA with GI losses and chronic NSAID use contributing. Will do Renal US to R/O possible underlying obstructive uropathy. Documented urine output 1330 cc. Avoid nephrotoxins. Continue IV fluids. No urgent need for HD at this point, K 4.8, no volume overload. Will continue to monitor. History of Present Illness - Reason for Consult Acute Kidney Injury - History of Present Illness Mr. Bliss is a 56 year old male who initially presented to [facility] on 11/20/16 with LLQ pain, intermittent fever and chills, N/V and generalized weakness with decreased oral intake of foods and fluids. . Mr. Bliss's PMH is positive for lung cancer, last chemo in August and recent [facility] stay for sepsis and PNA, He was again admitted with streptococcus sepsis and PNA. Started on Vancomycin, Zosyn and Levaquin. Vanco since stopped, trough 71 with worsening renal fct. Started on Zyvox. Normal renal fct on 11/22/14. On 11/24 creat 3.74, on 12/25 creat 5.01 and today creat 5.85. Denies diabetes. Hypertension for ten years, under good control. Admits chronic NSAID use for past two years; Naproxen at least once daily dosing. Denies proteinuria, hematuria, renal stones or chronic UTI's. Denies LE swelling or difficulty emptying bladder. Past Med Surg Social Fam HX - Past Medical History Medical history: hyperlipidemia, hypertension, other, CVA, cancer, CHF, COPD Psychiatric history: anxiety, depression - Past Surgical History Surgical History: herniorrhaphy, orthopedic, other - Social History Smoking Status: Current every day smoker Packs per day: 0.5 Smokeless Tobacco Status: No Alcohol use: none Drug use: marijuana - Family History Father Adopted: No Family Member Ethnicity: Non- Living Status: Hx Family Cancer: Yes Medications and Allergies Buspirone HCl [Buspar] 7.5 mg PO BID 04/21/16 [History] Gabapentin 600 mg PO TID 04/21/16 [History] SUMAtriptan Succinate [Imitrex] 100 mg PO DAILY PRN 04/21/16 [History] lamoTRIgine [Lamictal] 75 mg PO BID 04/21/16 [History] Ipratropium/Albuterol Neb [Duoneb] 3 ml IH Q6HR PRN 07/21/16 [History] Tiotropium [Spiriva] 1 cap IH DAILY 07/21/16 [History] Metoprolol Succinate 100 mg PO DAILY 09/05/16 [History] Albuterol Sulfate [Albuterol Inhaler] 2 puff IH Q6H PRN 09/08/16 [History] Zolpidem [Ambien] 5 mg PO HS 09/14/16 [History] Folic Acid 1 mg PO DAILY #30 tablet 09/28/16 [Rx] Loratadine [Claritin] 10 mg PO AD #60 tablet 09/28/16 [Rx] Omeprazole [PriLOSEC] 20 mg PO DAILY #30 capsule 09/28/16 [Rx] Ondansetron [Zofran] 8 mg PO Q8HR PRN #90 tablet 09/28/16 [Rx] Prochlorperazine Maleate [Compazine] 10 mg PO Q6HR PRN #60 tablet 09/28/16 [Rx] Oxymetazoline [Afrin] 15 spray NS AD PRN #1 bottle 10/06/16 [Rx] Guaifenesin [Guaifenesin ER] 1,200 mg PO BID #60 tab.er.12h 10/22/16 [Rx] OxyCODONE/APAP 10/325 [Percocet 10/325 MG] 1 each PO Q4HR PRN 10/22/16 [History] Lidocaine/Prilocaine CREAM [Emla] 5 gm TP AD PRN 11/04/16 [History] OxyCODONE ER (12 HR) [OxyCONTIN] 30 mg PO Q12HR #30 tab.er.12h 11/07/16 [Rx] diazePAM [Valium] 10 mg PO BID PRN #30 tablet 11/07/16 [Rx] Aspirin [Aspirin] 81 mg PO DAILY 11/20/16 [History] OLANZapine [Zyprexa] 2.5 mg PO DAILY 11/20/16 [History] Umeclidinium [place] [Incruse Ellipta] 1 puff IH DAILY 11/20/16 [History] Allergies doxycycline Allergy (Verified 10/22/16 16:08) Rash hydrocodone [From Vicodin] Allergy (Verified 10/22/16 16:08) Rash lidocaine Allergy (Verified 10/22/16 16:08) Rash propoxyphene [From Darvocet-N] Allergy (Verified 10/22/16 16:08) Rash morphine patches Allergy (Intermediate, Uncoded 10/22/16 16:08) Rash Review of Systems All Systems: reviewed and no additional remarkable complaints except as stated Exam - Vital Signs Vital signs: Initial Vital Signs Temp Pulse Resp BP Pulse Ox 103.3 F H 140 20 124/67 92 11/19/16 23:11 11/19/16 23:11 11/19/16 23:11 11/19/16 23:11 11/19/16 23:11 Vital Signs - Last 8 Hours Temp Pulse Resp BP Pulse Ox 11/26/16 07:44 18 99 11/26/16 07:26 107 11/26/16 07:24 100.0 F H 11/26/16 07:03 128 18 141/85 96 11/26/16 04:34 20 96 11/26/16 04:02 100.4 F H 120 20 130/77 94 11/26/16 03:35 115 Intake and Output 11/25/16 11/26/16 11/26/16 23:59 07:59 15:59 Intake Total 100 / 100 1000 / 1000 440 / 440 Output Total 480 / 480 250 / 250 Balance -380 / -380 750 / 750 440 / 440 Intake: IV Fluids 100 / 100 1000 / 1000 0.9 % Sodium Chloride 1, 1000 / 1000 000 ML @ 100 mls/hr IVC . Q10H SRAVANTHI Rx#:[id number] Zosyn 3.375 GM In 100 / 100 Dextrose 5% (Minibag+) 100 ML 100 ML @ 25 mls/hr IVPB Q12H SRAVANTHI Rx#: [id number] Oral 440 / 440 Output: Urine 480 / 480 250 / 250 Other: Meal Breakfast Percent of Meal Consumed 100% # Voids 1 # Bowel Movements 1 Weight 76.2 kg Patient Weight 11/26/16 23:59 Weight 76.2 kg - General Appearance General appearance: well-developed, well-nourished, appears started age EENT: mucous membranes moist Neck: no JVD, no carotid bruit Respiratory: wheezing Cardiology: regular rate, regular rhythm Additional Comments: mild pedal edema Gastrointestinal: normoactive bowel sounds, tenderness Integumentary: warm and dry Neurologic: alert and oriented x3 Psychiatric: mood/affect appropriate, cooperative Results - Lab Results 11/26/16 03:25 11/26/16 03:25 Most recent lab results ABG pH 7.44 pH Units (7.32-7.45) 11/19/16 23:45 ABG pCO2 46 mmHg (35-45) H 11/19/16 23:45 ABG pO2 62 mmHg (85-104) L 11/19/16 23:45 ABG HCO3 31.2 mEQ/L (21-27) H 11/19/16 23:45 ABG O2 Saturation 92 % (95-98) L 11/19/16 23:45 Calcium 9.2 mg/dL (8.6-10.8) 11/26/16 03:25 Phosphorus 3.3 mg/dL (2.3-4.7) 11/20/16 00:10 Magnesium 1.1 mg/dL (1.6-2.6) L 11/20/16 04:43 Consult Discharge Plan - Plan Referrals: Shabana Llamas DO [Primary Care Provider] - 12/04/16 10:20 am
[2016-11-26] MEDS: Metoprolol XL (24 HR) Succ 50 MG TAB.ER.24H PO SCH (15:57)
[2016-11-26] MEDS: *HR* Morphine 2 MG/ML SYRINGE IVP PRN ×2 (16:02→20:46)
--- NOTE | 2016-11-26 17:52 | Internal Med Progress Note ---
Date of Encounter: 11/26/16 Time of Encounter: 17:49 - Assessment and plan (1) Sepsis Current Visit: Yes Status: Acute Assessment and plan: leucocytosis has resolved 2/2 HCAP which is the primary source, unclear if he has an unknown source given persistent fever. blood cx negative so far, RIP is negative repeat CT chest adn abdomen does not show any worsening signs or possible new source. will continue IV zosyn, repeat vanco level tomm to check if he is still at therapeutic level. noted to have persistent sinus tachycardia, ?pain induced or pneumonia, henrietta restart his home BB. unclear cause of abdominal pain, amylase and lipase is normal, CT abdomen with no signs of infection, possible 2/2 metastatic disease. will follow ID recommendation, continue to monitor for fever. Qualifiers: Sepsis type: sepsis due to unspecified organism Qualified Code(s): A41.9 - Sepsis, unspecified organism (2) HCAP (healthcare-associated pneumonia) Current Visit: Yes Status: Acute Assessment and plan: recently discharged from this hospital on 11/14 on levofloxacin but patient says that he was not able to get oral antibiotics at home. patient still spiking 101 even though white count has improved. noted the creatinine went up possible from vanco toxicity, will continue the zosyn, vanco has been dced. will follow ID recommendations on antibiotics, RIP is negative ECHO done yesterday with no valvular vegetations, repeat CT chest shows persistent pneumonia but no signs of obstruction or abscess. f/u repeat blood cx. repeat cxr shows new small nodular opacities in the left lung, ?pneumonia ? malignant . (3) Lung cancer Current Visit: Yes Status: Acute Assessment and plan: reports that he has received one cycle of chemotherapy so far. has possible mets in liver as well as adrenals appreciate oncology recommendations Qualifiers: Laterality: left Lung location: unspecified part of lung Qualified Code(s ): C34.92 - Malignant neoplasm of unspecified part of left bronchus or lung (4) Essential hypertension Current Visit: No Status: Chronic Assessment and plan: will continue to monitor (5) Acute kidney injury Current Visit: Yes Status: Acute Assessment and plan: most likely 2/2 vancomycin induced toxicity. noted high trough levels at 71 , will repeat vanco level tomm morn. has started making good urine output, possible diuretic phase vanco has been held. appreciate renal recommendations monitor I/O s , continue IVF fo rnow - Subjective Interval history: Seen at the bedside, reports cough with yellowish productive sputum and abdominal pain with back pain. Denies any chest pain or shortness of breath. noted temp spike of 101 again last night, reports chills with the fever, denies any n/v/d. - Constitutional Vitals: Temp Pulse Resp BP Pulse Ox 98.6 F 112 18 151/90 96 11/26/16 16:11 11/26/16 16:11 11/26/16 16:11 11/26/16 16:11 11/26/16 15:35 General appearance: Present: A&O X 3, underweight, answers questions appropriately Exam: - Head Head exam: Present: atraumatic, normocephalic - Eye Eye exam: Present: PERRL, conjuntiva pink, sclera anicteric Pupils: Present: PERRL - Neck Neck exam general surgery: Present: supple, trachea midline. Absent: lymphadenopathy - Respiratory Respiratory exam: Present: b/l decreased breath sounds, Absent: accessory muscle use, rales, rhonchi - Cardiovascular Cardiovascular exam: Present: RRR, +S1, +S2. Absent: diastolic murmur, gallop, rubs, systolic murmur - GI/Abdominal GI/Abdominal exam: Present: normal bowel sounds, soft, no peritoneal signs. Absent: distended, tenderness - Extremities Exam Extremities exam: Present: warm, radial pulses palpable and symetrical. Absent : calf tenderness, cyanotic, pedal edema - Neurological Exam Neurological exam: Present: CN II-XII intact, oriented X3, no focal deficits. Absent: pronater drift, facial droop, speech deficit - Skin Skin exam: Present: dry, intact Internal Medicine: Result - Labs CBC & Chem 7: 11/26/16 03:25 11/26/16 03:25 Labs: Short CBC 11/26/16 Range/Units 03:25 WBC 10.1 (4.3-11.1) K/mcL Hgb 8.4 L (12.9-16.9) g/dL Hct 26.3 L (37.5-50.1) % Plt Count 241 (140-400) K/mcL Neutrophils # 7.2 (1.6-8.9) K/mcL BMP 11/26/16 03:25 Sodium 134 L Potassium 4.8 H Chloride 100 Carbon Dioxide 26 BUN 31 H Creatinine 5.85 H Glucose 84 Calcium 9.2 Liver Function 11/26/16 Range/Units 03:25 Total Bilirubin 0.4 (0.2-1.2) mg/dL AST 22 (5-34) Units/L ALT 18 (0-55) Units/L Alkaline Phosphatase 144 H (38-126) Units/L Albumin 1.9 L (3.5-5.0) g/dL - ABG Interpretation ABG results: ABG ABG pH 7.44 pH Units (7.32-7.45) 11/19/16 23:45 ABG pCO2 46 mmHg (35-45) H 11/19/16 23:45 ABG pO2 62 mmHg (85-104) L 11/19/16 23:45 ABG O2 Saturation 92 % (95-98) L 11/19/16 23:45 PT/INR, D-dimer PT 14.1 Seconds (9.4-12.1) H 11/20/16 00:10 - Impressions Impressions Abdomen/Pelvis CT 11/25/16 18:30 IMPRESSION: 1. Re- demonstration of metastatic disease including bilateral adrenal metastatic lesions and mildly enlarged retroperitoneal lymph nodes as well as several osseous metastasis within the sacrum and right iliac bone. Metastatic lesion also identified within the right lung base. Please see dedicated CT chest same day for complete intrathoracic findings. 2. No acute intra-abdominal process identified. D/ / Wilfredo Cornelius MD / Wilfredo Cornelius MD Interpreting Provider: Wilfredo Cornelius MD Chest CT 11/25/16 18:30 IMPRESSION: 1. Unchanged mass-like opacity in the left hilar region with superimposed left upper lobe consolidation. 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 Superimposed infection again cannot be excluded. No appreciable change since prior study. 2. Enlarged mediastinal lymph nodes and nodules in the right lower lobe, for which metastatic disease is not excluded. 3. Question osseous lesions in the thoracic vertebra and sternum. Metastatic disease is not excluded. D/ / 11/25/2016 21:42:46 Kilo Spring MD / earnold Interpreting Provider: Kilo Spring MD Consult Discharge Plan - Plan Referrals: Shabana Llamas DO [Primary Care Provider] - 12/04/16 10:20 am
--- NOTE | 2016-11-26 18:09 | Infectious Disease Progress No ---
Date of Encounter: 11/26/16 Time of Encounter: 18:05 - Assessment and Plan (1) Sepsis Current Visit: Yes Status: Acute Patient has fevers. Etiology for the fever is not clear.concern for non infectious etiology could be due to pneumonia, but most recent CT wasn't very convincing for a pneumonia Patient really had a respiratory infectious panel which has been negative. Sputum culture in the past have also been negative. Patient also has significant abdominal pain, CT abodmen pelvis and blood work for lipase amylase and lfts are not impressive; etiology not clear, likely due to mets await procalcitonin and legionella antigen consider d/cing zosyn and starting levaquin (dose adjust based on crcl) continue to monitor prognosis poor Qualifiers: Sepsis type: sepsis due to unspecified organism Qualified Code(s): A41.9 - Sepsis, unspecified organism (2) Abdominal pain Current Visit: Yes Status: Acute etiology not clear lipase/amylase/LFT's WNL CT abdomen without acute infectious process Qualifiers: Abdominal location: epigastric Qualified Code(s): R10.13 - Epigastric pain (3) Acute kidney injury Current Visit: Yes Status: Acute Cr must worse today secondary to vanc toxicity will continue to monitor (4) Pneumonia Current Visit: Yes Status: Acute repeat CT noted respiratory infectious panel noted will d/c zosyn start levaquin Qualifiers: Pneumonia type: due to unspecified organism Laterality: left Lung location: unspecified part of lung Qualified Code(s): J18.9 - Pneumonia, unspecified organism (5) Lung cancer Current Visit: Yes Status: Acute Diagnosed about 3 months ago. First chemotherapy session was about 09/24/16 Appears to be getting worse with metastases: Hematology oncology following. Not sure what the prognosis is. Qualifiers: Laterality: left Lung location: unspecified part of lung Qualified Code(s ): C34.92 - Malignant neoplasm of unspecified part of left bronchus or lung (6) CVA (cerebral vascular accident) Current Visit: No Status: Chronic Qualifiers: CVA mechanism: unspecified Qualified Code(s): I63.9 - Cerebral infarction, unspecified (7) Vancomycin poisoning Current Visit: Yes Status: Acute Qualifiers: Encounter type: initial encounter Injury intent: accidental or unintentional Qualified Code(s): T36.8X1A - Poisoning by other systemic antibiotics, accidental (unintentional), initial encounter (8) Cancer associated pain Current Visit: Yes Status: Chronic - Subjective Interval history: Patient seen and examined. Continues to feel weak and tired and is in pain. Appears worse than yesterday. Continues to have abdominal pain. No chest pain. Cough unchanged. No sputum production and no hemoptysis. All work up so far negative for infection Infect Dis PN-Objective Data - Labs CBC & Chem 7: 11/26/16 03:25 11/26/16 03:25 Labs: Laboratory Results - last 24 hr 11/26/16 11/26/16 03:25 03:25 WBC 10.1 RBC 2.89 L Hgb 8.4 L Hct 26.3 L MCV 91.0 MCH 29.1 MCHC 31.9 RDW 13.7 Plt Count 241 MPV 9.2 L Immature Gran % 0.5 Seg Neutrophils % 72.0 Lymphocytes % 15.8 Monocytes % 10.0 Eosinophils % 1.5 Basophils % 0.2 Neutrophils # 7.2 Lymphocytes # 1.6 Monocytes # 1.0 Eosinophils # 0.2 Basophils # 0.0 Sodium 134 L Potassium 4.8 H Chloride 100 Carbon Dioxide 26 BUN 31 H Creatinine 5.85 H Est GFR ( Amer) 12 L Est GFR (Non-Af Amer) 10 L BUN/Creatinine Ratio 5 L Glucose 84 Calculated Osmolality 284 Calcium 9.2 Total Bilirubin 0.4 AST 22 ALT 18 Alkaline Phosphatase 144 H Serum Total Protein 5.7 L Albumin 1.9 L Globulin 3.8 H Albumin/Globulin Ratio 0.5 L Cultures: Cultures 11/25/16 19:05 Legionella Antigen - Final Urine,Clean Catch 11/23/16 08:30 Blood Culture - Preliminary Peripheral Venipuncture No growth. 11/23/16 08:39 Blood Culture - Preliminary Peripheral Venipuncture No growth. 11/20/16 15:00 Sputum Culture - Final Sputum Serology 11/25/16 Range/Units 11:30 Chlamy pneumoniae PCR Not Detected (Not Detect) Adenovirus (PCR) Not Detected (Not Detect) B. pertussis DNA (PCR) Not Detected (Not Detect) Coronavirus OC43 (PCR) Not Detected (Not Detect) Coronavirus HKU1 (PCR) Not Detected (Not Detect) Coronavirus 229E (PCR) Not Detected (Not Detect) Coronavirus NL63 (PCR) Not Detected (Not Detect) Human Metapneumovir PCR Not Detected (Not Detect) Influenza A (H1) PCR Not Detected (Not Detect) Influ A (H1N1/09) PCR Not Detected (Not Detect) Influenza A (H3) PCR Not Detected (Not Detect) Influenza A Untype (PCR) Not Detected (Not Detect) Influenza Type B (PCR) Not Detected (Not Detect) M.pneumoniae DNA (PCR) Not Detected (Not Detect) Parainfluenza 1 (PCR) Not Detected (Not Detect) Parainfluenza 2 (PCR) Not Detected (Not Detect) Parainfluenza 3 (PCR) Not Detected (Not Detect) Parainfluenza 4 (PCR) Not Detected (Not Detect) RSV (PCR) Not Detected (Not Detect) Entero/Rhino (PCR) Not Detected (Not Detect) - Impressions Impressions Abdomen/Pelvis CT 11/25/16 18:30 IMPRESSION: 1. Re- demonstration of metastatic disease including bilateral adrenal metastatic lesions and mildly enlarged retroperitoneal lymph nodes as well as several osseous metastasis within the sacrum and right iliac bone. Metastatic lesion also identified within the right lung base. Please see dedicated CT chest same day for complete intrathoracic findings. 2. No acute intra-abdominal process identified. D/ / Wilfredo Cornelius MD / Wilfredo Cornelius MD Interpreting Provider: Wilfredo Cornelius MD Chest CT 11/25/16 18:30 IMPRESSION: 1. Unchanged mass-like opacity in the left hilar region with superimposed left upper lobe consolidation. 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 Superimposed infection again cannot be excluded. No appreciable change since prior study. 2. Enlarged mediastinal lymph nodes and nodules in the right lower lobe, for which metastatic disease is not excluded. 3. Question osseous lesions in the thoracic vertebra and sternum. Metastatic disease is not excluded. D/ / 11/25/2016 21:42:46 Kilo Spring MD / earnold Interpreting Provider: Kilo Spring MD Exam - Constitutional Vitals: Temp Pulse Resp BP Pulse Ox 98.6 F 112 18 151/90 96 11/26/16 16:11 11/26/16 16:11 11/26/16 16:11 11/26/16 16:11 11/26/16 15:35 General appearance: average body habitus, disheveled, mild distress - Head Head exam: Present: atraumatic, normocephalic - Respiratory Additional comments: decreased breath sounds universally. some diffuse ronchi worse on the right - Cardiovascular Cardiovascular exam: Present: RRR, +S1, +S2 - GI/Abdominal Additional comments: diffuse tenderness ruq, epigastric and luq no rebound no peritoneal signs - Extremities Exam Extremities exam: Present: normal inspection. Absent: pedal edema Consult Discharge Plan - Plan Referrals: Shabana Llamas DO [Primary Care Provider] - 12/04/16 10:20 am
[2016-11-26] MEDS: Levofloxacin 500 MG/100 ML 500 MG/100 ML BAG IVPB SCH (20:06)
[2016-11-26] MEDS: Acetaminophen 325 MG TABLET PO PRN (20:46)
[2016-11-27] MEDS: *HR* Heparin 5,000 UNIT/ML VIAL SQ SCH ×3 (00:14→17:34)
[2016-11-27] MEDS: 0.9 % Sodium Chloride 1,000 ML IVC SCH ×3 (03:14→20:25)
[2016-11-27] MEDS: Ipratropium/Albuterol Neb 3 ML IH SCH ×6 (03:53→23:47)
[2016-11-27] MEDS: *HR* OxyCODONE ER (12 HR) 10 MG TABLET PO SCH ×2 (05:40→17:35)
[2016-11-27 06:16] LABS: Basophils % 0.2 %; Eosinophils # 0.2 K/mcL (0.0-0.6); Eosinophils % 1.6 %; Hematocrit 28.9 % (37.5-50.1); Hemoglobin 9.1 g/dL (12.9-16.9); Immature Granulocytes % 0.7 % (0-4); Lymphocytes # 2.5 K/mcL (0.6-4.6); Lymphocytes % 21.9 %; Mean Corpuscular HGB Conc 31.5 g/dL (31.6-35.5); Mean Corpuscular Hemoglobin 28.9 pg (28.0-33.3); Mean Corpuscular Volume 91.7 fL (83.0-100.0); Monocytes # 1.2 K/mcL (0.0-1.3); Monocytes % 10.5 %; Neutrophils # 7.3 K/mcL (1.6-8.9); Platelet Count 268 K/mcL (140-400); Red Blood Count 3.15 M/mcL (4.19-5.50); Red Cell Distribution Width 13.8 % (11.5-14.5); Segmented Neutrophils % 65.1 %
[2016-11-27 06:37] LABS: Vancomycin,Random 37.8 mcg/mL
[2016-11-27 06:43] LABS: Albumin/Globulin Ratio 0.5 (1.1-2.2); Bilirubin,Total 0.3 mg/dL (0.2-1.2); Calcium 9.2 mg/dL (8.6-10.8); Globulin 4.1 g/dL (2.4-3.5)
[2016-11-27 06:46] LABS: Albumin 1.9 g/dL (3.5-5.0)
[2016-11-27 06:47] LABS: Potassium 5.6 mEq/L (3.5-4.5)
[2016-11-27] MEDS ORDERED: Aminoglycoside Consult 1 EACH MC ONE (07:44)
[2016-11-27] MEDS: Budesonide/Formoterol 160/4.5 MDI IH SCH ×2 (08:09→19:58)
[2016-11-27] MEDS: Acetaminophen 325 MG TABLET PO PRN (08:17)
[2016-11-27] MEDS: lamoTRIgine 25 MG TABLET PO SCH ×2 (08:18→20:26)
[2016-11-27] MEDS: Aspirin 81 MG TAB.CHEW PO SCH (08:18)
[2016-11-27] MEDS: Folic Acid 1 MG TABLET PO SCH (08:18)
[2016-11-27] MEDS: Sennosides/Docusate Sodium TABLET PO SCH ×2 (08:18→20:26)
[2016-11-27] MEDS: Metoprolol XL (24 HR) Succ 50 MG TAB.ER.24H PO SCH (08:19)
[2016-11-27] MEDS: *HR* Morphine 2 MG/ML SYRINGE IVP PRN (08:19)
[2016-11-27] MEDS: Nicotine 21 MG PATCH.TD24 TD SCH (08:22)
[2016-11-27] MEDS ORDERED: Calcium Gluconate 1,000 MG in D5% in Water 100 ML IVPB ONE (09:01)
--- NOTE | 2016-11-27 10:37 | Palliative - Consult Note ---
Date of Encounter: 11/27/16 Time of Encounter: 10:32 - Assessment and Plan (1) Cancer associated pain Current Visit: Yes Status: Acute Assessment and plan: Acute exacerbation of chronic pain related to metastatic lung CA. Pain is described as sharp/shooting. Mr. Jolley is grimacing with short grunting respirations due to the pain. He has pain to the chest area with palpation. Will discontinue the morphine given the acute kidney injury. Mr. Jolley reports the best pain control is with oxycodone. Will give one time dose of hydromorphone 1.5mg, and start oxycodone 20mg po Q4 hours as needed. Will likely need to increase the dose of oxyCONTIN, but follow PRN use for the time being. Update @ 1330: Return to the room following administration of hydromorphone. Nurse reports pain went from 10/10 to 6/10 and tachycardia/tachypnea resolved. He is resting with eyes closed and taking deep breaths. Will allow time to rest , and return later today. Update @ 1500: Mr. Jolley reports "better" control of his pain, and now rates it as 8/10. He is able to sit up in bed and have a full conversation without grimacing or grunting respirations. We reviewed his history of pain medications and he states he averaged 6 percocet 10/325mg tablets a day. He did not get the oxyCONTIN Rx filled (Rx was given during the last hospital admission). Mr. Jolley will need follow up from PCP to ensure adequate pain management and that he is taking the recommended medications. Financial concerns will need to be considered. The palliative care team will continue to follow for pain management. (2) Sepsis Current Visit: Yes Status: Acute Qualifiers: Sepsis type: sepsis due to unspecified organism Qualified Code(s): A41.9 - Sepsis, unspecified organism (3) HCAP (healthcare-associated pneumonia) Current Visit: Yes Status: Acute (4) Acute kidney injury Current Visit: Yes Status: Acute Assessment and plan: Nephrology following. Will discontinue the morphine. (5) Counseling regarding advanced directives and goals of care Current Visit: Yes Status: Acute Assessment and plan: Mr. Jolley has discussed advanced directives in the past, but has not completed them. He did bring the "paperwork" to the hospital to fill it out. We did discuss code status. Mr. Jolley stated that if he goes in to cardiac arrest he would want to "be at peace". We discussed DNR-CCA, and he agreed that it most aligned with his wishes. Mr. Jolley has 2 children that live with him. His 24 year old daughter, Katharina, does not work outside of the home, but provides social support and assists with transportation. His 17 year old son works at [employer] for the summer and will return to high school in the Fall as a senior. Mr. Jolley prefers that his sister, Mckenna Jolley (Ann), be the decision maker in the event that he is unable to make decisions on his own. Will follow up to complete formal advanced directives. Palliative-CN HPI - Data of Consult Patient: new to practice Consult date: 11/27/16 Requesting Physician: Enrique Marlow MD Primary Care Provider: Shabana Llamas, DO - Consult Narrative Palliative Care/Comfort Measures: Palliative care Reason for consult: Pain management History of present illness: Mr. Jolley is a 56 year old male presenting to the emergency department with complaints of shortness of breath and cough. He was admitted for further work- up and treatment of Sepsis/HCAP. He had a recent admission (11/05/16) for pneumonia and was discharged on ATB therapy. Mr. Jolley has metastatic lung CA (diagnosed in July 2016) and is seeking treatment through the [facility]. During the admission, Mr. Jolley continued to have fevers and infectious disease was consulted. He developed an acute kidney injury, and nephrology has been following. The palliative care team was consulted to assist with pain management. Mr. Jolley reports chest pain described as a constant, sharp/shooting pain, spanning the anterior chest, and rated 10/10. Chest wall is tender to touch. Pain is exacerbated with coughing, breathing heavy, and even conversation. This pain has progressed since his hospital admission. His home regimen is percocet 10/325mg for breakthrough pain, and he takes 1-2 tablets every 4-6 hours. Mr. Jolley has used morphine and dilaudid in the past, but reports better pain relief with oxycodone. During his last admission, he was prescribed oxyCONTIN, but did not have the Rx filled. He denies opioid induced constipation, n/v/d. 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) Psychiatric history: anxiety, depression - Past Surgical History Surgical History: herniorrhaphy, orthopedic, other (left shoulder, ) - Social History Smoking Status: Current every day smoker Packs per day: 0.5 Smokeless Tobacco Status: No Alcohol use: none Drug use: marijuana Occupational status: disabled Current living situation: Home, With Family - Family History Father Adopted: No Family Member Ethnicity: Non- Living Status: Hx Family Cancer: Yes Medications and Allergies Buspirone HCl [Buspar] 7.5 mg PO BID 04/21/16 [History] Gabapentin 600 mg PO TID 04/21/16 [History] SUMAtriptan Succinate [Imitrex] 100 mg PO DAILY PRN 04/21/16 [History] lamoTRIgine [Lamictal] 75 mg PO BID 04/21/16 [History] Ipratropium/Albuterol Neb [Duoneb] 3 ml IH Q6HR PRN 07/21/16 [History] Tiotropium [Spiriva] 1 cap IH DAILY 07/21/16 [History] Metoprolol Succinate 100 mg PO DAILY 09/05/16 [History] Albuterol Sulfate [Albuterol Inhaler] 2 puff IH Q6H PRN 09/08/16 [History] Zolpidem [Ambien] 5 mg PO HS 09/14/16 [History] Folic Acid 1 mg PO DAILY #30 tablet 09/28/16 [Rx] Loratadine [Claritin] 10 mg PO AD #60 tablet 09/28/16 [Rx] Omeprazole [PriLOSEC] 20 mg PO DAILY #30 capsule 09/28/16 [Rx] Ondansetron [Zofran] 8 mg PO Q8HR PRN #90 tablet 09/28/16 [Rx] Prochlorperazine Maleate [Compazine] 10 mg PO Q6HR PRN #60 tablet 09/28/16 [Rx] Oxymetazoline [Afrin] 15 spray NS AD PRN #1 bottle 10/06/16 [Rx] Guaifenesin [Guaifenesin ER] 1,200 mg PO BID #60 tab.er.12h 10/22/16 [Rx] OxyCODONE/APAP 10/325 [Percocet 10/325 MG] 1 each PO Q4HR PRN 10/22/16 [History] Lidocaine/Prilocaine CREAM [Emla] 5 gm TP AD PRN 11/04/16 [History] OxyCODONE ER (12 HR) [OxyCONTIN] 30 mg PO Q12HR #30 tab.er.12h 11/07/16 [Rx] diazePAM [Valium] 10 mg PO BID PRN #30 tablet 11/07/16 [Rx] Aspirin [Aspirin] 81 mg PO DAILY 11/20/16 [History] OLANZapine [Zyprexa] 2.5 mg PO DAILY 11/20/16 [History] Umeclidinium Briscoe [Incruse Ellipta] 1 puff IH DAILY 11/20/16 [History] Allergies doxycycline Allergy (Verified 10/22/16 16:08) Rash hydrocodone [From Vicodin] Allergy (Verified 10/22/16 16:08) Rash lidocaine Allergy (Verified 10/22/16 16:08) Rash propoxyphene [From Darvocet-N] Allergy (Verified 10/22/16 16:08) Rash morphine patches Allergy (Intermediate, Uncoded 10/22/16 16:08) Rash - Constitutional Constitutional ROS PAL: fever(s), no decreased appetite, no weight loss - EENT Eyes: no change in vision Ears, nose, mouth, throat: no dysphagia - Cardiovascular Cardiovascular ROS: chest pain, dyspnea on exertion, no edema, no irregular heart rhythm, no pedal edema - Respiratory Respiratory: cough, dyspnea, dyspnea on exertion, pain on inspiration - Gastrointestinal Gastrointestinal: constipation, no diarrhea, no nausea, no vomiting - Genitourinary Genitourinary ROS male: no difficulty urinating - Musculoskeletal Musculoskeletal ROS IM: back pain (chronic) - Integumentary ROS Integumentary: no sores, no wounds - Neurological Neurological ROS: no confusion, no lack of coordination, no weakness Palliative Care-Exam - Constitutional Vitals: Temp Pulse Resp BP Pulse Ox 100.3 F H 124 20 167/91 94 11/27/16 07:43 11/27/16 08:42 11/27/16 08:42 11/27/16 08:42 11/27/16 08:42 General appearance: Present: average body habitus, mild distress Exam: 56 year old male in an acute on chronic pain crisis, grimacing with grunting respirations, guarding body - Head Head Exam: Present: atraumatic - Eye Eye exam: Present: EOMI Pupils: Present: PERRL - ENT ENT exam: Present: mucous membranes moist - Respiratory Respiratory exam: Present: accessory muscle use, decreased breath sounds ( shallow/grunting respirations), tachypnea - Cardiovascular Cardiovascular exam: Present: RRR, tachycardia - GI/Abdominal Exam GI/Abdominal exam: Present: normal bowel sounds, soft. Absent: guarding, tenderness - Extremities Exam Extremities exam: Absent: pedal edema - Neurological Exam Neurological exam: Present: alert, no focal deficits, strengths equal and symetr throughout - Psychiatric Psychiatric exam: Present: anxious, flat affect (poor eye contact) - Skin Skin exam: Present: dry, warm Internal Medicine - CN: Reslt - Labs CBC & Chem 7: 11/27/16 06:04 11/27/16 06:04 Labs: Short CBC 11/27/16 Range/Units 06:04 WBC 11.2 H (4.3-11.1) K/mcL Hgb 9.1 L (12.9-16.9) g/dL Hct 28.9 L (37.5-50.1) % Plt Count 268 (140-400) K/mcL Neutrophils # 7.3 (1.6-8.9) K/mcL BMP 11/27/16 06:04 Sodium 137 Potassium 5.6 H Chloride 107 Carbon Dioxide 18 L BUN 34 H Creatinine 6.38 H Glucose 93 Calcium 9.2 Liver Function 11/27/16 Range/Units 06:04 Total Bilirubin 0.3 (0.2-1.2) mg/dL AST 21 (5-34) Units/L ALT 18 (0-55) Units/L Alkaline Phosphatase 149 H (38-126) Units/L Albumin 1.9 L (3.5-5.0) g/dL - ABG Interpretation ABG results: ABG ABG pH 7.44 pH Units (7.32-7.45) 11/19/16 23:45 ABG pCO2 46 mmHg (35-45) H 11/19/16 23:45 ABG pO2 62 mmHg (85-104) L 11/19/16 23:45 ABG O2 Saturation 92 % (95-98) L 11/19/16 23:45 PT/INR, D-dimer PT 14.1 Seconds (9.4-12.1) H 11/20/16 00:10 - Impressions Impressions Retroperitoneum Ultrasound 11/26/16 17:00 IMPRESSION: 1. No evidence of hydronephrosis. 2. Hyperechoic right kidney which may be seen in medical renal disease. 3. There is a 9 mm echogenic focus in the left kidney, not seen on the concurrent CT, may represent renal sinus fat. D/ / 11/26/2016 18:36:45 Giovana Fernandez MD / penny Interpreting Provider: Giovana Fernandez MD Consult Discharge Plan - Plan Referrals: Shabana Llamas DO [Primary Care Provider] - 12/04/16 10:20 am Palliative Quality Palliative Quality: Screen for Code Status: NA, Screen for Goals of Care: NA, Screen for Pain: Yes, If Pain Regimen Started, Initiate Bowel Regimen: Yes, Screen for Nausea/Vomitting: Yes Code Status: 11/20/16 03:31 Resuscitation Status: Active [RES] Routine Comment: Resuscitation Status: Full Code
[2016-11-27] MEDS ORDERED: *HR* HYDROmorphone (PF) 1 MG/ML SYRINGE IVP ONE (10:42)
--- NOTE | 2016-11-27 12:37 | Nephrology Progress Note ---
Date of Encounter: 11/27/16 Time of Encounter: 11:45 - Assessment and Plan (1) Acute kidney injury Current Visit: Yes Status: Acute ARMAAN in setting of Vanco toxicity, sepsis, PNA with GI losses and chronic NSAID use contributing. Renal US shows no underlying obstructive uropathy. Documented urine output 250 cc. Avoid nephrotoxins. Continue IV fluids. No urgent need for HD at this point, K 5.6, no volume overload. Bicarb 18. Added PO Bicarb. Low potassium diet. Patient in agreement of HD if needed. If renal fct worsened will initiate HD tomorrow. Will continue to monitor. Subjective Interval history: Laying quietly, states pain better controlled. Discussed worsening renal fct and possibility of need for dialysis. Patient offered new PMH that he did not offer in interview yesterday. States had been on HD in 2004 for 6 months in setting of Amitriptyline OD with complete recovery of renal fct. Patient in agreement of HD if needed. Objective - Vital Signs Vital signs: Vital Signs Temp Pulse Resp BP Pulse Ox 11/27/16 11:42 99.1 F 101 20 103/63 93 11/27/16 11:32 18 97 11/27/16 08:42 124 20 167/91 94 11/27/16 08:08 18 96 11/27/16 07:43 100.3 F H 127 24 175/105 93 11/27/16 05:30 102 11/27/16 03:53 22 95 11/27/16 03:49 98.8 F 103 22 132/93 95 11/27/16 00:13 98.7 F 95 19 105/74 11/27/16 00:00 98 11/26/16 23:03 20 96 11/26/16 20:00 112 11/26/16 19:31 101.4 F H 112 24 169/97 92 11/26/16 16:11 98.6 F 112 18 151/90 11/26/16 15:35 18 96 11/26/16 15:15 111 Intake and Output 11/26/16 11/27/16 11/27/16 23:59 07:59 15:59 Intake Total 100 / 100 1000 / 1000 560 / 560 Balance 100 / 100 1000 / 1000 560 / 560 Intake: IV Fluids 100 / 100 1000 / 1000 560 / 560 0.9 % Sodium Chloride 1, 1000 / 1000 560 / 560 000 ML @ 100 mls/hr IVC . Q10H SRAVANTHI Rx#:[id number] Levaquin Premix 500mg/ 100 / 100 100mL 500 mg In 100 ml @ 100 mls/hr IVPB Q48H SRAVANTHI Rx#:[id number] Other: # Voids 1 Weight 76.5 kg Patient Weight 11/27/16 23:59 Weight 76.5 kg - General Appearance General appearance: Present: appears started age, moderate distress EENT: Present: mucous membranes moist Neck: Present: no JVD Respiratory: Present: clear Cardiology: Present: no edema, regular rate, regular rhythm Gastrointestinal: Present: hypoactive bowel sounds, no tenderness Integumentary: Present: warm and dry Neurologic: Present: alert and oriented x3 Psychiatric: Present: mood/affect appropriate, cooperative - Lab 11/27/16 06:04 11/27/16 06:04 Most recent lab results ABG pH 7.44 pH Units (7.32-7.45) 11/19/16 23:45 ABG pCO2 46 mmHg (35-45) H 11/19/16 23:45 ABG pO2 62 mmHg (85-104) L 11/19/16 23:45 ABG HCO3 31.2 mEQ/L (21-27) H 11/19/16 23:45 ABG O2 Saturation 92 % (95-98) L 11/19/16 23:45 Calcium 9.2 mg/dL (8.6-10.8) 11/27/16 06:04 Phosphorus 3.3 mg/dL (2.3-4.7) 11/20/16 00:10 Magnesium 1.1 mg/dL (1.6-2.6) L 11/20/16 04:43 Consult Discharge Plan - Plan Referrals: Shabana Llamas DO [Primary Care Provider] - 12/04/16 10:20 am
[2016-11-27] MEDS: *HR* OxyCODONE Immed Rel 5 MG TABLET PO PRN ×2 (12:40→17:34)
--- NOTE | 2016-11-27 15:07 | Internal Med Progress Note ---
Date of Encounter: 11/27/16 Time of Encounter: 14:59 - Assessment and plan (1) Sepsis Current Visit: Yes Status: Acute Assessment and plan: 2/2 HCAP which is the primary source, unclear if he has an unknown source given persistent fever. blood cx negative so far, RIP is negative repeat CT chest adn abdomen does not show any worsening signs or possible new source. antibiotic has been changed to levoflox as per ID unclear cause of abdominal pain, amylase and lipase is normal, CT abdomen with no signs of infection, possible 2/2 metastatic disease. will follow ID recommendation, continue to monitor for fever. Qualifiers: Sepsis type: sepsis due to unspecified organism Qualified Code(s): A41.9 - Sepsis, unspecified organism (2) HCAP (healthcare-associated pneumonia) Current Visit: Yes Status: Acute Assessment and plan: recently discharged from this hospital on 11/14 on levofloxacin but patient says that he was not able to get oral antibiotics at home. patient still spiking 101 even though white count has improved. noted the creatinine went up possible from vanco toxicity, vanco has been dced. will follow ID recommendations on antibiotics, RIP is negative ECHO done with no valvular vegetations, repeat CT chest shows persistent pneumonia but no signs of obstruction or abscess. f/u repeat blood cx. repeat cxr shows new small nodular opacities in the left lung, ?pneumonia ? malignant . (3) Lung cancer Current Visit: Yes Status: Acute Assessment and plan: reports that he has received one cycle of chemotherapy so far. has possible mets in liver as well as adrenals appreciate oncology recommendations Qualifiers: Laterality: left Lung location: unspecified part of lung Qualified Code(s ): C34.92 - Malignant neoplasm of unspecified part of left bronchus or lung (4) Essential hypertension Current Visit: No Status: Chronic Assessment and plan: will continue to monitor (5) Acute kidney injury Current Visit: Yes Status: Acute Assessment and plan: most likely 2/2 vancomycin induced toxicity. noted high trough levels at 71 , repeat vanco level still 37.8 today passiun good urine, hold off on HD today, renal fxn slightly worse today however no signs of volume overload. k at 5.6, was given a dose of kayexalate and calcium gluconate. vanco has been held. appreciate renal recommendations monitor I/O s , continue IVF fo rnow - Subjective Interval history: Seen at the bedside, reports cough with yellowish productive sputum and worsening pain on his chest with cough and abdominal pain. noted temp spike of 101 again last night, denies any n/v/d. - Constitutional Vitals: Temp Pulse Resp BP Pulse Ox 99.1 F 100 20 103/63 93 11/27/16 11:42 11/27/16 12:50 11/27/16 11:42 11/27/16 11:42 11/27/16 11:42 General appearance: Present: A&O X 3, underweight, answers questions appropriately Exam: - Head Head exam: Present: atraumatic, normocephalic - Eye Eye exam: Present: PERRL, conjuntiva pink, sclera anicteric Pupils: Present: PERRL - Neck Neck exam general surgery: Present: supple, trachea midline. Absent: lymphadenopathy - Respiratory Respiratory exam: Present: b/l decreased breath sounds, Absent: accessory muscle use, rales, rhonchi - Cardiovascular Cardiovascular exam: Present: RRR, +S1, +S2. Absent: diastolic murmur, gallop, rubs, systolic murmur - GI/Abdominal GI/Abdominal exam: Present: normal bowel sounds, soft, no peritoneal signs. Absent: distended, tenderness - Extremities Exam Extremities exam: Present: warm, radial pulses palpable and symetrical. Absent : calf tenderness, cyanotic, pedal edema - Neurological Exam Neurological exam: Present: CN II-XII intact, oriented X3, no focal deficits. Absent: pronater drift, facial droop, speech deficit - Skin Skin exam: Present: dry, intact Internal Medicine: Result - Labs CBC & Chem 7: 11/27/16 06:04 11/27/16 06:04 Labs: Short CBC 11/27/16 Range/Units 06:04 WBC 11.2 H (4.3-11.1) K/mcL Hgb 9.1 L (12.9-16.9) g/dL Hct 28.9 L (37.5-50.1) % Plt Count 268 (140-400) K/mcL Neutrophils # 7.3 (1.6-8.9) K/mcL BMP 11/27/16 06:04 Sodium 137 Potassium 5.6 H Chloride 107 Carbon Dioxide 18 L BUN 34 H Creatinine 6.38 H Glucose 93 Calcium 9.2 Liver Function 06/30/17 Range/Units 06:04 Total Bilirubin 0.3 (0.2-1.2) mg/dL AST 21 (5-34) Units/L ALT 18 (0-55) Units/L Alkaline Phosphatase 149 H (38-126) Units/L Albumin 1.9 L (3.5-5.0) g/dL - ABG Interpretation ABG results: ABG ABG pH 7.44 pH Units (7.32-7.45) 11/19/16 23:45 ABG pCO2 46 mmHg (35-45) H 11/19/16 23:45 ABG pO2 62 mmHg (85-104) L 11/19/16 23:45 ABG O2 Saturation 92 % (95-98) L 11/19/16 23:45 PT/INR, D-dimer PT 14.1 Seconds (9.4-12.1) H 11/20/16 00:10 - Impressions Impressions Retroperitoneum Ultrasound 11/26/16 17:00 IMPRESSION: 1. No evidence of hydronephrosis. 2. Hyperechoic right kidney which may be seen in medical renal disease. 3. There is a 9 mm echogenic focus in the left kidney, not seen on the concurrent CT, may represent renal sinus fat. D/ / 11/26/2016 18:36:45 Giovana Fernandez MD / penny Interpreting Provider: Giovana Fernandez MD Consult Discharge Plan - Plan Referrals: Shabana Llamas DO [Primary Care Provider] - 12/04/16 10:20 am
--- NOTE | 2016-11-27 15:58 | Infectious Disease Progress No ---
Date of Encounter: 11/27/16 Time of Encounter: 15:56 - Assessment and Plan (1) Sepsis Current Visit: Yes Status: Acute Patient has fevers. Etiology for the fever is not clear.concern for non infectious etiology could be due to pneumonia, but most recent CT wasn't very convincing for a pneumonia Patient really had a respiratory infectious panel which has been negative. Sputum culture in the past have also been negative. Patient also has significant abdominal pain, CT abodmen pelvis and blood work for lipase amylase and lfts are not impressive; etiology not clear, likely due to mets await procalcitonin and legionella antigen consider d/cing zosyn and starting levaquin (dose adjust based on crcl) continue to monitor prognosis poor Qualifiers: Qualified Code(s): A41.9 - Sepsis, unspecified organism (2) Abdominal pain Current Visit: Yes Status: Acute etiology not clear lipase/amylase/LFT's WNL CT abdomen without acute infectious process Qualifiers: Qualified Code(s): R10.13 - Epigastric pain (3) Acute kidney injury Current Visit: Yes Status: Acute Cr must worse today secondary to vanc toxicity will continue to monitor (4) Pneumonia Current Visit: Yes Status: Acute repeat CT noted respiratory infectious panel noted will d/c zosyn start levaquin Qualifiers: Qualified Code(s): J18.9 - Pneumonia, unspecified organism (5) Lung cancer Current Visit: Yes Status: Acute Diagnosed about 3 months ago. First chemotherapy session was about 09/24/16 Appears to be getting worse with metastases: Hematology oncology following. Not sure what the prognosis is. Qualifiers: Qualified Code(s): C34.92 - Malignant neoplasm of unspecified part of left bronchus or lung (6) CVA (cerebral vascular accident) Current Visit: No Status: Chronic Qualifiers: Qualified Code(s): I63.9 - Cerebral infarction, unspecified (7) Vancomycin poisoning Current Visit: Yes Status: Acute Qualifiers: Qualified Code(s): T36.8X1A - Poisoning by other systemic antibiotics, accidental (unintentional), initial encounter (8) Cancer associated pain Current Visit: Yes Status: Acute - Subjective Interval history: Patient seen and examined. Continues to feel weak and tired and is in pain. Appears worse than yesterday. Continues to have abdominal pain. No chest pain. Cough unchanged. No sputum production and no hemoptysis. All work up so far negative for infection . continues to spike fevers. weak abut better than yesterday Infect Dis PN-Objective Data - Labs CBC & Chem 7: 11/27/16 06:04 11/27/16 06:04 Labs: Laboratory Results - last 24 hr 11/27/16 11/27/16 06:04 06:04 WBC 11.2 H RBC 3.15 L Hgb 9.1 L Hct 28.9 L MCV 91.7 MCH 28.9 MCHC 31.5 L RDW 13.8 Plt Count 268 MPV 10.0 Immature Gran % 0.7 Seg Neutrophils % 65.1 Lymphocytes % 21.9 Monocytes % 10.5 Eosinophils % 1.6 Basophils % 0.2 Neutrophils # 7.3 Lymphocytes # 2.5 Monocytes # 1.2 Eosinophils # 0.2 Basophils # 0.0 Sodium 137 Potassium 5.6 H Chloride 107 Carbon Dioxide 18 L BUN 34 H Creatinine 6.38 H Est GFR ( Amer) 11 L Est GFR (Non-Af Amer) 9 L BUN/Creatinine Ratio 5 L Glucose 93 Calculated Osmolality 291 Calcium 9.2 Total Bilirubin 0.3 AST 21 ALT 18 Alkaline Phosphatase 149 H Serum Total Protein 6.0 Albumin 1.9 L Globulin 4.1 H Albumin/Globulin Ratio 0.5 L Random Vancomycin 37.8 Cultures: Cultures 11/25/16 17:06 Blood Culture - Preliminary Peripheral Venipuncture No growth. 11/25/16 17:06 Blood Culture - Preliminary Peripheral Venipuncture No growth. 11/25/16 19:05 Legionella Antigen - Final Urine,Clean Catch 11/23/16 08:30 Blood Culture - Preliminary Peripheral Venipuncture No growth. 11/23/16 08:39 Blood Culture - Preliminary Peripheral Venipuncture No growth. 11/20/16 15:00 Sputum Culture - Final Sputum Serology 11/25/16 Range/Units 11:30 Chlamy pneumoniae PCR Not Detected (Not Detect) Adenovirus (PCR) Not Detected (Not Detect) B. pertussis DNA (PCR) Not Detected (Not Detect) Coronavirus OC43 (PCR) Not Detected (Not Detect) Coronavirus HKU1 (PCR) Not Detected (Not Detect) Coronavirus 229E (PCR) Not Detected (Not Detect) Coronavirus NL63 (PCR) Not Detected (Not Detect) Human Metapneumovir PCR Not Detected (Not Detect) Influenza A (H1) PCR Not Detected (Not Detect) Influ A (H1N1/09) PCR Not Detected (Not Detect) Influenza A (H3) PCR Not Detected (Not Detect) Influenza A Untype (PCR) Not Detected (Not Detect) Influenza Type B (PCR) Not Detected (Not Detect) M.pneumoniae DNA (PCR) Not Detected (Not Detect) Parainfluenza 1 (PCR) Not Detected (Not Detect) Parainfluenza 2 (PCR) Not Detected (Not Detect) Parainfluenza 3 (PCR) Not Detected (Not Detect) Parainfluenza 4 (PCR) Not Detected (Not Detect) RSV (PCR) Not Detected (Not Detect) Entero/Rhino (PCR) Not Detected (Not Detect) - Impressions Impressions Retroperitoneum Ultrasound 11/26/16 17:00 IMPRESSION: 1. No evidence of hydronephrosis. 2. Hyperechoic right kidney which may be seen in medical renal disease. 3. There is a 9 mm echogenic focus in the left kidney, not seen on the concurrent CT, may represent renal sinus fat. D/ / 11/26/2016 18:36:45 Giovana Fernandez MD / selwyn Interpreting Provider: Giovana Fernandez MD Exam - Constitutional Vitals: Temp Pulse Resp BP Pulse Ox 99.1 F 100 20 103/63 93 11/27/16 11:42 11/27/16 12:50 11/27/16 11:42 11/27/16 11:42 11/27/16 11:42 General appearance: febrile, mild distress - Head Head exam: Present: atraumatic, normocephalic - Respiratory Additional comments: air sounds audible both lung gill, diffuse ronchi worse on the right - Cardiovascular Cardiovascular exam: Present: RRR, +S1, +S2 - GI/Abdominal Additional comments: tender, diffuse pain, some distention - Extremities Exam Extremities exam: Present: normal inspection. Absent: pedal edema Consult Discharge Plan - Plan Referrals: Shabana Llamas DO [Primary Care Provider] - 12/04/16 10:20 am
[2016-11-28] MEDS: *HR* Heparin 5,000 UNIT/ML VIAL SQ SCH ×3 (00:52→17:04)
[2016-11-28] MEDS: *HR* OxyCODONE Immed Rel 5 MG TABLET PO PRN ×3 (00:53→20:01)
[2016-11-28] MEDS: Ipratropium/Albuterol Neb 3 ML IH SCH ×6 (04:03→23:55)
[2016-11-28 04:50] LABS: Basophils % 0.2 %; Eosinophils # 0.1 K/mcL (0.0-0.6); Eosinophils % 1.3 %; Hematocrit 28.8 % (37.5-50.1); Hemoglobin 9.2 g/dL (12.9-16.9); Immature Granulocytes % 1.8 % (0-4); Lymphocytes # 1.9 K/mcL (0.6-4.6); Mean Corpuscular HGB Conc 31.9 g/dL (31.6-35.5); Mean Corpuscular Hemoglobin 29.7 pg (28.0-33.3); Mean Corpuscular Volume 92.9 fL (83.0-100.0); Monocytes # 1.2 K/mcL (0.0-1.3); Monocytes % 11.8 %; Platelet Count 280 K/mcL (140-400); Red Cell Distribution Width 13.7 % (11.5-14.5); Segmented Neutrophils % 66.9 %
[2016-11-28 05:03] LABS: Albumin/Globulin Ratio 0.5 (1.1-2.2); Bilirubin,Total 0.2 mg/dL (0.2-1.2); Calcium 9.5 mg/dL (8.6-10.8); Globulin 4.2 g/dL (2.4-3.5); Total Protein 6.2 g/dL (6.0-8.3)
[2016-11-28] MEDS: 0.9 % Sodium Chloride 1,000 ML IVC SCH ×2 (05:31→16:01)
[2016-11-28] MEDS: *HR* OxyCODONE ER (12 HR) 10 MG TABLET PO SCH ×2 (05:31→17:03)
[2016-11-28] MEDS: Budesonide/Formoterol 160/4.5 MDI IH SCH ×2 (07:53→20:49)
[2016-11-28] MEDS: Sennosides/Docusate Sodium TABLET PO SCH ×2 (08:12→20:03)
[2016-11-28] MEDS: Metoprolol XL (24 HR) Succ 50 MG TAB.ER.24H PO SCH (08:13)
[2016-11-28] MEDS: Folic Acid 1 MG TABLET PO SCH (08:13)
[2016-11-28] MEDS: lamoTRIgine 25 MG TABLET PO SCH ×2 (08:14→20:02)
[2016-11-28] MEDS: Aspirin 81 MG TAB.CHEW PO SCH (08:15)
[2016-11-28] MEDS: Nicotine 21 MG PATCH.TD24 TD SCH (08:24)
--- NOTE | 2016-11-28 08:55 | Nephrology Progress Note ---
Date of Encounter: 11/28/16 Time of Encounter: 08:35 - Assessment and Plan (1) Acute kidney injury Current Visit: Yes Status: Acute ARMAAN in setting of Vanco toxicity, sepsis, PNA with GI losses and chronic NSAID use contributing. Renal US shows no underlying obstructive uropathy. Renal fct seems to have plateued. Creat slowly improving 6.29. Documented urine output 400cc yesterday and 700cc this AM. Avoid nephrotoxins. Continue IV fluids. No urgent need for HD at this point, K 5.0, no volume overload. Added PO Bicarb yesterday, bicarb improved 24. On low potassium diet. Patient in agreement of HD if needed. Will continue to monitor. Subjective Interval history: Laying quietly, states pain better controlled. No new complaints. Objective - Vital Signs Vital signs: Vital Signs Temp Pulse Resp BP Pulse Ox 11/28/16 07:38 98.6 F 114 28 157/90 98 11/28/16 05:30 120 11/28/16 04:05 24 90 11/28/16 03:53 98.8 F 119 22 165/94 96 11/28/16 00:30 120 11/27/16 23:47 20 94 11/27/16 23:00 99.6 F 116 22 169/98 93 11/27/16 20:15 99 11/27/16 19:58 18 98 11/27/16 19:00 98.2 F 100 18 145/94 96 11/27/16 17:15 102 11/27/16 16:54 97.5 F L 106 20 137/84 94 11/27/16 15:54 18 96 11/27/16 12:50 100 11/27/16 11:42 99.1 F 101 20 103/63 93 11/27/16 11:32 18 97 Intake and Output 11/27/16 11/28/16 11/28/16 23:59 07:59 15:59 Intake Total 1000 / 1000 1000 / 1000 800 / 800 Output Total 400 / 400 700 / 700 Balance 600 / 600 300 / 300 800 / 800 Intake: IV Fluids 1000 / 1000 1000 / 1000 0.9 % Sodium Chloride 1, 1000 / 1000 1000 / 1000 000 ML @ 100 mls/hr IVC . Q10H [facility] Rx#:[id number] Oral 800 / 800 Output: Urine 400 / 400 700 / 700 Other: Stool Size Moderate Stool Consistency soft Stool Characteristics Normal for Patient Stool Color Brown # Bowel Movements 1 Weight 74.4 kg Patient Weight 11/28/16 23:59 Weight 74.4 kg - General Appearance General appearance: Present: well-developed, appears started age EENT: Present: mucous membranes moist Neck: Present: no JVD Respiratory: Present: wheezing Cardiology: Present: regular rate, regular rhythm Additional Comments: pedal edema Gastrointestinal: Present: normoactive bowel sounds, no tenderness, no guarding , distended Integumentary: Present: warm and dry Neurologic: Present: alert and oriented x3 Psychiatric: Present: mood/affect appropriate, cooperative - Lab 11/28/16 04:36 11/28/16 04:36 Most recent lab results ABG pH 7.44 pH Units (7.32-7.45) 11/19/16 23:45 ABG pCO2 46 mmHg (35-45) H 11/19/16 23:45 ABG pO2 62 mmHg (85-104) L 11/19/16 23:45 ABG HCO3 31.2 mEQ/L (21-27) H 11/19/16 23:45 ABG O2 Saturation 92 % (95-98) L 11/19/16 23:45 Calcium 9.5 mg/dL (8.6-10.8) 11/28/16 04:36 Phosphorus 3.3 mg/dL (2.3-4.7) 11/20/16 00:10 Magnesium 1.1 mg/dL (1.6-2.6) L 11/20/16 04:43 Consult Discharge Plan - Plan Referrals: Shabana Llamas DO [Primary Care Provider] - 12/04/16 10:20 am
--- NOTE | 2016-11-28 10:44 | Event Note ---
Date of Encounter: 11/28/16 Time of Encounter: 10:55 Patient is sleeping soundly with snoring respirations upon my arrival. Does not arouse to verbal or tactile stimulation. RR 18/min. D/W primary nurse and he was recently medicated for pain. Stated he rated his pain a 7 prior to med administration. Med review completed, he has utilized Oxycodone for breakthrough x4 last 24 hours and remains on Oxycontin. Labs and nephrology note reviewed. Slightly improved - hopefully kidneys will begin recovery and he can avoid dialysis. Will f/u in am.
--- NOTE | 2016-11-28 11:11 | Internal Med Progress Note ---
Date of Encounter: 11/28/16 Time of Encounter: 11:01 - Assessment and plan (1) Sepsis Current Visit: Yes Status: Acute Assessment and plan: 2/2 HCAP which is the primary source, unclear if he has an unknown source, less likely infectious. blood cx negative so far, RIP is negative repeat CT chest adn abdomen does not show any worsening signs or possible new source. antibiotic has been changed to levoflox as per ID, fever pattern better today unclear cause of abdominal pain which seems to have improved with pain meds, amylase and lipase is normal, CT abdomen with no signs of infection, possible 2/ 2 metastatic disease. will follow ID recommendation, continue to monitor for fever. Qualifiers: Sepsis type: sepsis due to unspecified organism Qualified Code(s): A41.9 - Sepsis, unspecified organism (2) HCAP (healthcare-associated pneumonia) Current Visit: Yes Status: Acute Assessment and plan: recently discharged from this hospital on 11/14 on levofloxacin but patient says that he was not able to get oral antibiotics at home. fever is better, leucocytosis has resolved. noted the creatinine went up possible from vanco toxicity, vanco has been dced. will follow ID recommendations on antibiotics, RIP is negative ECHO done with no valvular vegetations, repeat CT chest shows persistent pneumonia but no signs of obstruction or abscess. f/u repeat blood cx. repeat cxr shows new small nodular opacities in the left lung, ?pneumonia ? malignant . (3) Lung cancer Current Visit: Yes Status: Acute Assessment and plan: reports that he has received one cycle of chemotherapy so far. has possible mets in liver as well as adrenals appreciate oncology recommendations, patient wishes to f/u with oncology after dc to discuss treatment options. Qualifiers: Laterality: left Lung location: unspecified part of lung Qualified Code(s ): C34.92 - Malignant neoplasm of unspecified part of left bronchus or lung (4) Essential hypertension Current Visit: No Status: Chronic Assessment and plan: will continue to monitor (5) Acute kidney injury Current Visit: Yes Status: Acute Assessment and plan: most likely 2/2 vancomycin induced toxicity. noted high trough levels at 71 , repeat vanco level still 37.8 yesterday passiun good urine, hold off on HD today, renal fxn slightly better today however no signs of volume overload. k at 5.0, was given a dose of kayexalate and calcium gluconate. vanco has been held. appreciate renal recommendations monitor I/O s , continue IVF fo rnow - Subjective Interval history: Seen at the bedside, reports feeling much better, pain has improved. No temperature spike and noted yesterday other than low-grade fevers, patient overall clinically feels better, denies any n/v/d. reports making good urine buut no using urinal as much. - Constitutional Vitals: Temp Pulse Resp BP Pulse Ox 97.8 F 97 20 122/81 97 11/28/16 10:58 11/28/16 10:58 11/28/16 10:58 11/28/16 10:58 11/28/16 10:58 General appearance: Present: A&O X 3, underweight, answers questions appropriately Exam: - Head Head exam: Present: atraumatic, normocephalic - Eye Eye exam: Present: PERRL, conjuntiva pink, sclera anicteric Pupils: Present: PERRL - Neck Neck exam general surgery: Present: supple, trachea midline. Absent: lymphadenopathy - Respiratory Respiratory exam: Present: b/l decreased breath sounds, Absent: accessory muscle use, rales, rhonchi - Cardiovascular Cardiovascular exam: Present: RRR, +S1, +S2. Absent: diastolic murmur, gallop, rubs, systolic murmur - GI/Abdominal GI/Abdominal exam: Present: normal bowel sounds, soft, mild diffuse tenderness, no rigidity, no peritoneal signs. Absent: distended, tenderness - Extremities Exam Extremities exam: Present: warm, radial pulses palpable and symetrical. Absent : calf tenderness, cyanotic, pedal edema - Neurological Exam Neurological exam: Present: CN II-XII intact, oriented X3, no focal deficits. Absent: pronater drift, facial droop, speech deficit - Skin Skin exam: Present: dry, intact Internal Medicine: Result - Labs CBC & Chem 7: 11/28/16 04:36 11/28/16 04:36 Labs: Short CBC 11/28/16 Range/Units 04:36 WBC 10.5 (4.3-11.1) K/mcL Hgb 9.2 L (12.9-16.9) g/dL Hct 28.8 L (37.5-50.1) % Plt Count 280 (140-400) K/mcL Neutrophils # 7.0 (1.6-8.9) K/mcL BMP 11/28/16 04:36 Sodium 140 Potassium 5.0 H Chloride 107 Carbon Dioxide 24 BUN 33 H Creatinine 6.29 H Glucose 83 Calcium 9.5 Liver Function 11/28/16 Range/Units 04:36 Total Bilirubin 0.2 (0.2-1.2) mg/dL AST 21 (5-34) Units/L ALT 15 (0-55) Units/L Alkaline Phosphatase 145 H (38-126) Units/L Albumin 2.0 L (3.5-5.0) g/dL - ABG Interpretation ABG results: ABG ABG pH 7.44 pH Units (7.32-7.45) 11/19/16 23:45 ABG pCO2 46 mmHg (35-45) H 11/19/16 23:45 ABG pO2 62 mmHg (85-104) L 11/19/16 23:45 ABG O2 Saturation 92 % (95-98) L 11/19/16 23:45 PT/INR, D-dimer PT 14.1 Seconds (9.4-12.1) H 11/20/16 00:10 Consult Discharge Plan - Plan Referrals: Shabana Llamas DO [Primary Care Provider] - 12/04/16 10:20 am
[2016-11-28] MEDS: Levofloxacin 500 MG/100 ML 500 MG/100 ML BAG IVPB SCH (18:34)
[2016-11-28] MEDS: Ondansetron 4 MG/2 ML VIAL IVP PRN (19:13)
[2016-11-29] MEDS: *HR* Heparin 5,000 UNIT/ML VIAL SQ SCH ×4 (00:53→23:13)
[2016-11-29] MEDS: 0.9 % Sodium Chloride 1,000 ML IVC SCH ×3 (02:02→22:46)
[2016-11-29] MEDS: Ipratropium/Albuterol Neb 3 ML IH SCH ×5 (03:52→20:52)
[2016-11-29] MEDS: *HR* OxyCODONE Immed Rel 5 MG TABLET PO PRN (03:54)
[2016-11-29] MEDS: *HR* OxyCODONE ER (12 HR) 10 MG TABLET PO SCH ×2 (06:16→17:28)
[2016-11-29] MEDS: Ondansetron 4 MG/2 ML VIAL IVP PRN ×2 (07:02→23:07)
[2016-11-29] MEDS: Budesonide/Formoterol 160/4.5 MDI IH SCH ×2 (07:51→20:52)
[2016-11-29 08:40] LABS: Basophils % 0.3 %; Eosinophils % 0.4 %; Hematocrit 31.2 % (37.5-50.1); Hemoglobin 9.5 g/dL (12.9-16.9); Immature Granulocytes % 1.4 % (0-4); Lymphocytes # 1.5 K/mcL (0.6-4.6); Lymphocytes % 13.8 %; Mean Corpuscular HGB Conc 30.4 g/dL (31.6-35.5); Mean Corpuscular Hemoglobin 28.7 pg (28.0-33.3); Mean Corpuscular Volume 94.3 fL (83.0-100.0); Mean Platelet Volume 9.2 fL (9.4-12.4); Monocytes % 9.5 %; Neutrophils # 7.9 K/mcL (1.6-8.9); Platelet Count 374 K/mcL (140-400); Red Blood Count 3.31 M/mcL (4.19-5.50); Red Cell Distribution Width 13.8 % (11.5-14.5); Segmented Neutrophils % 74.6 %
[2016-11-29 08:51] LABS: Calcium 9.8 mg/dL (8.6-10.8); Potassium 4.8 mEq/L (3.5-4.5)
[2016-11-29 09:27] LABS: Albumin 2.1 g/dL (3.5-5.0); Phosphorous 6.5 mg/dL (2.3-4.7)
--- NOTE | 2016-11-29 10:21 | Nephrology Progress Note ---
Date of Encounter: 11/29/16 Time of Encounter: 10:05 - Assessment and Plan (1) Acute kidney injury Current Visit: Yes Status: Acute ARMAAN in setting of Vanco toxicity, sepsis, PNA with GI losses and chronic NSAID use contributing. Renal US shows no underlying obstructive uropathy. Renal fct seems to have plateued. Creat slowly improving 5.60. Documented urine output 1150cc. Avoid nephrotoxins. Continue IV fluids. No urgent need for HD at this point, K 4.8, no volume overload. Bicarb 23. On low potassium diet. Patient in agreement of HD if needed. Will continue to monitor. Subjective Interval history: Somnolent, arouses somewhat with few words when name called. Family at bedside, states he just received pain medication. Objective - Vital Signs Vital signs: Vital Signs Temp Pulse Resp BP Pulse Ox 11/29/16 09:32 108 97 11/29/16 08:20 110 11/29/16 07:55 24 97 11/29/16 07:09 97.9 F 122 24 161/100 97 11/29/16 05:00 98.7 F 118 20 169/98 100 11/29/16 00:48 97.8 F 114 14 150/90 94 11/28/16 20:49 20 95 11/28/16 20:15 98.1 F 108 16 147/90 96 11/28/16 16:00 108 11/28/16 15:49 98.9 F 110 20 180/102 97 11/28/16 15:45 20 76 11/28/16 12:09 95 11/28/16 10:58 97.8 F 97 20 122/81 97 Intake and Output 11/28/16 11/29/16 11/29/16 23:59 07:59 15:59 Intake Total 100 / 100 1000 / 1000 Output Total 450 / 450 Balance -350 / -350 1000 / 1000 Intake: IV Fluids 100 / 100 1000 / 1000 0.9 % Sodium Chloride 1, 1000 / 1000 000 ML @ 100 mls/hr IVC . Q10H [facility] Rx#:[id number] Levaquin Premix 500mg/ 100 / 100 100mL 500 mg In 100 ml @ 100 mls/hr IVPB Q48H [facility] Rx#:[id number] Output: Urine 450 / 450 Other: Stool Size Small Stool Consistency soft Stool Color Brown Yellow # Bowel Movements 1 Weight 76.7 kg Blood Glucose* 100 80 Patient Weight 11/29/16 23:59 Weight 76.7 kg - General Appearance General appearance: Present: well-developed, well-nourished, appears started age EENT: Present: mucous membranes moist Neck: Present: no JVD Respiratory: Present: wheezing Cardiology: Present: edema, regular rate, regular rhythm Additional Comments: pedal edema Gastrointestinal: Present: normoactive bowel sounds, no tenderness Integumentary: Present: warm and dry - Lab 11/29/16 08:20 11/29/16 08:20 Most recent lab results ABG pH 7.44 pH Units (7.32-7.45) 11/19/16 23:45 ABG pCO2 46 mmHg (35-45) H 11/19/16 23:45 ABG pO2 62 mmHg (85-104) L 11/19/16 23:45 ABG HCO3 31.2 mEQ/L (21-27) H 11/19/16 23:45 ABG O2 Saturation 92 % (95-98) L 11/19/16 23:45 Calcium 9.8 mg/dL (8.6-10.8) 11/29/16 08:20 Phosphorus 6.5 mg/dL (2.3-4.7) H 11/29/16 08:20 Magnesium 1.1 mg/dL (1.6-2.6) L 11/20/16 04:43 Consult Discharge Plan - Plan Referrals: Shabana Llamas DO [Primary Care Provider] - 12/04/16 10:20 am
--- NOTE | 2016-11-29 10:29 | Palliative Progress Note ---
Date of Encounter: 11/29/16 Time of Encounter: 10:30 - Assessment and plan (1) Cancer associated pain Current Visit: Yes Status: Acute Assessment and plan: Very drowsy the last 48 hours. Concern with oversedation with kidney function. Will decrease breakthrough Oxycodone today to 10mg and monitor. Will reevaluate pain/renal function daily and monitor. Discussed with sister at bedside. (2) Acute kidney injury Current Visit: Yes Status: Acute Assessment and plan: Nephrology following closely, creatinine beginning to trend down. No need for dialysis at this time. (3) Sepsis Current Visit: Yes Status: Acute Assessment and plan: continues treatment with IV atb. Qualifiers: Sepsis type: sepsis due to unspecified organism Qualified Code(s): A41.9 - Sepsis, unspecified organism - Time Spent With Patient Total time spent is greater than 50% in coordination of care (as documented) at patient's floor/unit and/or counseling patient: 25 - 35 minutes - Subjective Interval history: Patient remains very drowsy, will arouse with stimulation, but drifts back to sleep. Sister at bedside. Asking about "blue band/DNR". Explained the conversation and decision he made the other day, she verbalized understanding. States that they lost a sister to cancer last week and her is today. - Constitutional Vitals: Abnormal lab results RBC 3.31 M/mcL (4.19-5.50) L 11/29/16 08:20 Hgb 9.5 g/dL (12.9-16.9) L 11/29/16 08:20 Hct 31.2 % (37.5-50.1) L 11/29/16 08:20 MCHC 30.4 g/dL (31.6-35.5) L 11/29/16 08:20 MPV 9.2 fL (9.4-12.4) L 11/29/16 08:20 PT 14.1 Seconds (9.4-12.1) H 11/20/16 00:10 APTT 24.9 Seconds (26.0-36.0) L 11/20/16 00:10 ABG pCO2 46 mmHg (35-45) H 11/19/16 23:45 ABG pO2 62 mmHg (85-104) L 11/19/16 23:45 ABG HCO3 31.2 mEQ/L (21-27) H 11/19/16 23:45 ABG Total CO2 32.6 mEq/L (20-26) H 11/19/16 23:45 ABG O2 Saturation 92 % (95-98) L 11/19/16 23:45 ABG Base Excess 6.1 mEq/L (-2.0 to 3.0) H 11/19/16 23:45 Potassium 4.8 mEq/L (3.5-4.5) H 11/29/16 08:20 BUN 36 mg/dL (8-26) H 11/29/16 08:20 Creatinine 5.60 mg/dL (0.72-1.25) H 11/29/16 08:20 Est GFR ( Amer) 13 (> 60) L 11/29/16 08:20 Est GFR (Non-Af Amer) 11 (> 60) L 11/29/16 08:20 POC Glucose 105 (58-89) H 11/22/16 16:27 Calculated Osmolality 302 (280-300) H 11/29/16 08:20 Phosphorus 6.5 mg/dL (2.3-4.7) H 11/29/16 08:20 Magnesium 1.1 mg/dL (1.6-2.6) L 11/20/16 04:43 Iron 14 mcg/dL (65-175) L 11/25/16 09:45 % Saturation 10 % (20-55) L 11/25/16 09:45 Transferrin 103 mg/dL (174-364) L 11/25/16 09:45 Alkaline Phosphatase 145 Units/L (38-126) H 11/28/16 04:36 Troponin I 0.05 ng/mL (0-0.03) H* 11/20/16 16:26 Albumin 2.1 g/dL (3.5-5.0) L 11/29/16 08:20 Globulin 4.2 g/dL (2.4-3.5) H 11/28/16 04:36 Albumin/Globulin Ratio 0.5 (1.1-2.2) L 11/28/16 04:36 Amylase 18 Units/L (25-125) L 11/25/16 16:04 Vitamin B12 865 pg/mL (213-816) H 11/25/16 09:45 Procalcitonin 0.87 ng/mL (<=0.10) H 11/25/16 16:04 Vancomycin Trough 71.6 mcg/mL (10-20) H* 11/24/16 03:25 General appearance: Present: no acute distress - Respiratory Respiratory exam: Present: decreased breath sounds, CTAB - Cardiovascular Cardiovascular exam: Present: +S1, +S2 - GI/Abdominal GI/Abdominal exam: Present: normal bowel sounds, soft - Extremities Exam Extremities exam: Present: normal capillary refill, normal inspection - Neurological Exam Additional comments: Sleeping with snoring respirations, resp easy and reg at 18/min. Awakens with stimulation, but drifts back to sleep quickly - Skin Skin exam: Present: dry, warm Palliative Quality Palliative Quality: Screen for Code Status: NA, Screen for Goals of Care: NA, Screen for Pain: Yes, If Pain Regimen Started, Initiate Bowel Regimen: Yes, Screen for Nausea/Vomitting: Yes Code Status: 11/20/16 03:31 Resuscitation Status: Active [RES] Routine Comment: Resuscitation Status: Full Code Resuscitation Status: Active [RES] Routine Comment: Resuscitation Status: DNR-Comfort Care-Arrest - Labs CBC & Chem 7: 11/29/16 08:20 11/29/16 08:20 Labs: Laboratory Results - last 24 hr 11/29/16 11/29/16 08:20 08:20 WBC 10.6 RBC 3.31 L Hgb 9.5 L Hct 31.2 L MCV 94.3 MCH 28.7 MCHC 30.4 L RDW 13.8 Plt Count 374 MPV 9.2 L Immature Gran % 1.4 Seg Neutrophils % 74.6 Lymphocytes % 13.8 Monocytes % 9.5 Eosinophils % 0.4 Basophils % 0.3 Neutrophils # 7.9 Lymphocytes # 1.5 Monocytes # 1.0 Eosinophils # 0.0 Basophils # 0.0 Sodium 142 Potassium 4.8 H Chloride 106 Carbon Dioxide 23 BUN 36 H Creatinine 5.60 H Est GFR ( Amer) 13 L Est GFR (Non-Af Amer) 11 L BUN/Creatinine Ratio 6 Glucose 86 Calculated Osmolality 302 H Calcium 9.8 Phosphorus 6.5 H Albumin 2.1 L - ABG Interpretation ABG results: ABG ABG pH 7.44 pH Units (7.32-7.45) 11/19/16 23:45 ABG pCO2 46 mmHg (35-45) H 11/19/16 23:45 ABG pO2 62 mmHg (85-104) L 11/19/16 23:45 ABG O2 Saturation 92 % (95-98) L 11/19/16 23:45 PT/INR, D-dimer PT 14.1 Seconds (9.4-12.1) H 11/20/16 00:10 Consult Discharge Plan - Plan Referrals: Shabana Llamas DO [Primary Care Provider] - 12/04/16 10:20 am
[2016-11-29] MEDS: Metoprolol XL (24 HR) Succ 50 MG TAB.ER.24H PO SCH (14:30)
[2016-11-29] MEDS: lamoTRIgine 25 MG TABLET PO SCH ×2 (14:35→22:46)
[2016-11-29] MEDS: Folic Acid 1 MG TABLET PO SCH (14:35)
[2016-11-29] MEDS: Aspirin 81 MG TAB.CHEW PO SCH (14:35)
[2016-11-29] MEDS: Sennosides/Docusate Sodium TABLET PO SCH ×2 (14:36→22:46)
[2016-11-29] MEDS: Nicotine 21 MG PATCH.TD24 TD SCH (14:36)
--- NOTE | 2016-11-29 15:41 | Internal Med Progress Note ---
Date of Encounter: 11/29/16 Time of Encounter: 15:29 - Assessment and plan (1) Sepsis Current Visit: Yes Status: Acute Assessment and plan: 2/2 HCAP which is the primary source,. blood cx negative so far, RIP is negative repeat CT chest adn abdomen does not show any worsening signs or possible new source. antibiotic has been changed to levoflox as per ID, no fever since last 48hrs. unclear cause of abdominal pain which seems to have improved with pain meds, amylase and lipase is normal, CT abdomen with no signs of infection, possible 2/ 2 metastatic disease. will follow ID recommendation. Qualifiers: Sepsis type: sepsis due to unspecified organism Qualified Code(s): A41.9 - Sepsis, unspecified organism (2) HCAP (healthcare-associated pneumonia) Current Visit: Yes Status: Acute Assessment and plan: recently discharged from this hospital on 11/14 on levofloxacin but patient says that he was not able to get oral antibiotics at home. fever is better, leucocytosis has resolved. noted the creatinine went up possible from vanco toxicity, vanco has been dced. will follow ID recommendations on antibiotics, RIP is negative ECHO done with no valvular vegetations, repeat CT chest shows no signs of obstruction or abscess. repeat blood cx shows no growth. . (3) Lung cancer Current Visit: Yes Status: Acute Assessment and plan: reports that he has received one cycle of chemotherapy so far. has possible mets in liver as well as adrenals appreciate oncology recommendations, patient wishes to f/u with oncology after dc to discuss treatment options. Qualifiers: Laterality: left Lung location: unspecified part of lung Qualified Code(s ): C34.92 - Malignant neoplasm of unspecified part of left bronchus or lung (4) Essential hypertension Current Visit: No Status: Chronic Assessment and plan: will continue to monitor (5) Acute kidney injury Current Visit: Yes Status: Acute Assessment and plan: most likely 2/2 vancomycin induced toxicity. passiun good urine, hold off on HD today, renal fxn better today however no signs of volume overload. vanco has been held. appreciate renal recommendations monitor I/O s , continue IVF fo rnow - Subjective Interval history: Seen at the bedside, very drowsy today and is hardly arousable. No temperature spike today , patient is not complaining of pain but is overall drowsy, denies any n/v/d. bladder scan showing 900cc of urine, s/p cannon catheter. - Constitutional Vitals: Temp Pulse Resp BP Pulse Ox 97.6 F 111 20 156/97 98 11/29/16 11:14 11/29/16 14:27 11/29/16 11:14 11/29/16 11:14 11/29/16 14:27 General appearance: Present: A&O X 3, underweight, answers questions appropriately Exam: neck- supple chest- b/l clear, no added sounds CVS-s1 and s2, no m/r/g abd- soft, non tender, bs are present ext- no edema neuro- drowsy, will open eyes but not awake enough to answer questions. Internal Medicine: Result - Labs CBC & Chem 7: 11/29/16 08:20 11/29/16 08:20 Labs: Short CBC 11/29/16 Range/Units 08:20 WBC 10.6 (4.3-11.1) K/mcL Hgb 9.5 L (12.9-16.9) g/dL Hct 31.2 L (37.5-50.1) % Plt Count 374 (140-400) K/mcL Neutrophils # 7.9 (1.6-8.9) K/mcL BMP 11/29/16 08:20 Sodium 142 Potassium 4.8 H Chloride 106 Carbon Dioxide 23 BUN 36 H Creatinine 5.60 H Glucose 86 Calcium 9.8 Liver Function 11/29/16 Range/Units 08:20 Albumin 2.1 L (3.5-5.0) g/dL - ABG Interpretation ABG results: ABG ABG pH 7.44 pH Units (7.32-7.45) 11/19/16 23:45 ABG pCO2 46 mmHg (35-45) H 11/19/16 23:45 ABG pO2 62 mmHg (85-104) L 11/19/16 23:45 ABG O2 Saturation 92 % (95-98) L 11/19/16 23:45 PT/INR, D-dimer PT 14.1 Seconds (9.4-12.1) H 11/20/16 00:10 Consult Discharge Plan - Plan Referrals: Shabana Llamas DO [Primary Care Provider] - 12/04/16 10:20 am
[2016-11-30] MEDS: Ipratropium/Albuterol Neb 3 ML IH SCH ×6 (00:23→21:23)
[2016-11-30 05:16] LABS: Basophils % 0.1 %; Eosinophils # 0.1 K/mcL (0.0-0.6); Eosinophils % 0.9 %; Hematocrit 27.5 % (37.5-50.1); Hemoglobin 8.5 g/dL (12.9-16.9); Immature Granulocytes % 0.9 % (0-4); Immature Platelets 1.9 % (1.1-6.1); Lymphocytes # 1.1 K/mcL (0.6-4.6); Lymphocytes % 14.6 %; Mean Corpuscular HGB Conc 30.9 g/dL (31.6-35.5); Mean Corpuscular Hemoglobin 29.3 pg (28.0-33.3); Mean Corpuscular Volume 94.8 fL (83.0-100.0); Mean Platelet Volume 9.7 fL (9.4-12.4); Monocytes % 13.6 %; Neutrophils # 5.4 K/mcL (1.6-8.9); Platelet Count 330 K/mcL (140-400); Red Cell Distribution Width 13.9 % (11.5-14.5); Segmented Neutrophils % 69.9 %
[2016-11-30 05:31] LABS: Calcium 9.6 mg/dL (8.6-10.8); Potassium 4.5 mEq/L (3.5-4.5)
[2016-11-30] MEDS: *HR* OxyCODONE ER (12 HR) 10 MG TABLET PO SCH (06:38)
[2016-11-30] MEDS: Sennosides/Docusate Sodium TABLET PO SCH ×2 (08:03→23:45)
[2016-11-30] MEDS: *HR* Heparin 5,000 UNIT/ML VIAL SQ SCH ×3 (08:03→23:36)
[2016-11-30] MEDS: Folic Acid 1 MG TABLET PO SCH (08:04)
[2016-11-30] MEDS: lamoTRIgine 25 MG TABLET PO SCH ×2 (08:04→23:45)
[2016-11-30] MEDS: Aspirin 81 MG TAB.CHEW PO SCH (08:04)
[2016-11-30] MEDS: Metoprolol XL (24 HR) Succ 50 MG TAB.ER.24H PO SCH (08:04)
[2016-11-30] MEDS: Nicotine 21 MG PATCH.TD24 TD SCH (08:06)
[2016-11-30] MEDS: 0.9 % Sodium Chloride 1,000 ML IVC SCH ×2 (08:24→23:36)
--- NOTE | 2016-11-30 09:06 | Nephrology Progress Note ---
Date of Encounter: 11/30/16 Time of Encounter: 09:04 - Assessment and Plan (1) Acute kidney injury Current Visit: Yes Status: Acute Patient has nonoliguric acute kidney injury in the face of vancomycin nephrotoxicity. His renal function is slowly improving. He currently does not require dialysis. We will continue to monitor his renal function. (2) Lung cancer Current Visit: Yes Status: Acute Qualifiers: Laterality: left Lung location: unspecified part of lung Qualified Code(s ): C34.92 - Malignant neoplasm of unspecified part of left bronchus or lung Subjective Interval history: Patient is resting comfortably. He denies any new complaints. His renal function continues to slowly improve. Objective - Vital Signs Vital signs: Vital Signs Temp Pulse Resp BP Pulse Ox 11/30/16 07:49 105 11/30/16 07:33 99.4 F 107 16 152/89 93 11/30/16 04:30 20 97 11/30/16 04:00 115 11/30/16 00:30 109 11/30/16 00:24 20 92 11/29/16 23:50 99 F 110 18 152/90 95 11/29/16 23:17 99.5 F 106 20 148/81 94 11/29/16 20:52 20 98 11/29/16 20:33 98.1 F 104 17 147/95 98 11/29/16 20:24 99 11/29/16 20:22 106 11/29/16 18:06 98.5 F 106 24 132/75 98 11/29/16 17:23 98.1 F 108 24 132/75 99 11/29/16 15:55 113 11/29/16 15:54 20 98 11/29/16 14:27 111 98 11/29/16 12:19 109 99 11/29/16 11:14 97.6 F 108 20 156/97 100 11/29/16 10:00 20 100 11/29/16 09:32 108 97 Intake and Output 11/29/16 11/30/16 11/30/16 23:59 07:59 15:59 Intake Total 1000 / 1000 1000 / 1000 Output Total 600 / 600 Balance 400 / 400 1000 / 1000 Intake: IV Fluids 1000 / 1000 1000 / 1000 0.9 % Sodium Chloride 1, 1000 / 1000 1000 / 1000 000 ML @ 100 mls/hr IVC . Q10H SRAVANTHI Rx#:[id number] Output: Catheter 600 / 600 Other: Blood Glucose* 88 - General Appearance Exam: Patient is resting comfortably. He is in no acute distress. Lungs diminished breath sounds. Heart regular rate and rhythm. Abdomen is benign. There is mild lower extremity swelling. - Lab 11/30/16 05:12 11/30/16 05:12 Most recent lab results ABG pH 7.44 pH Units (7.32-7.45) 11/19/16 23:45 ABG pCO2 46 mmHg (35-45) H 11/19/16 23:45 ABG pO2 62 mmHg (85-104) L 11/19/16 23:45 ABG HCO3 31.2 mEQ/L (21-27) H 11/19/16 23:45 ABG O2 Saturation 92 % (95-98) L 11/19/16 23:45 Calcium 9.6 mg/dL (8.6-10.8) 11/30/16 05:12 Phosphorus 6.5 mg/dL (2.3-4.7) H 11/29/16 08:20 Magnesium 1.1 mg/dL (1.6-2.6) L 11/20/16 04:43 Consult Discharge Plan - Plan Referrals: Shabana Llamas DO [Primary Care Provider] - 12/04/16 10:20 am
--- NOTE | 2016-11-30 09:34 | Palliative Progress Note ---
Date of Encounter: 11/30/16 Time of Encounter: 10:00 - Assessment and plan (1) Cancer associated pain Current Visit: Yes Status: Acute Assessment and plan: Long acting oxyCONTIN 30mg BID (patient declined morning dose today) with PRN oxycodone 10mg every 4 hours as needed. The PRN dose was decreased from 20mg to 10 mg yesterday due to somnolence. He has not required any PRN doses since early yesterday morning. Will discontinue scheduled oxyCONTIN and manage pain with PRN medications only at this time. (2) Sepsis Current Visit: Yes Status: Acute Qualifiers: Sepsis type: sepsis due to unspecified organism Qualified Code(s): A41.9 - Sepsis, unspecified organism (3) HCAP (healthcare-associated pneumonia) Current Visit: Yes Status: Acute (4) Acute kidney injury Current Visit: Yes Status: Acute Assessment and plan: Nephrology following. (5) Counseling regarding advanced directives and goals of care Current Visit: Yes Status: Acute Assessment and plan: Mr. Bliss indicated on Wednesday that he would want Ms. Christiana Bliss to serve as his surrogate decision maker in the event that he cannot make decisions. She reports prior discussions re: goals of care prior to admission. She supports the decision for DNR status and asks appropriate questions. Will follow for further goals of care discussions. (6) Therapeutic opioid induced constipation Current Visit: Yes Status: Acute Assessment and plan: Mr. Bliss is taking Senna + two tablets BID. Last BM was documented on . Continue with current treatment. - Time Spent With Patient Total time spent is greater than 50% in coordination of care (as documented) at patient's floor/unit and/or counseling patient: - Subjective Interval history: Mr. Bliss is lying in bed. He arouses to verbal stimuli, but remains sedated. Last dose of oxycodone was last evening (OxyCONTIN 30mg). Sister-Christiana Bliss- at bedside. - Constitutional Vitals: Abnormal lab results RBC 2.90 M/mcL (4.19-5.50) L 11/30/16 05:12 Hgb 8.5 g/dL (12.9-16.9) L 11/30/16 05:12 Hct 27.5 % (37.5-50.1) L 11/30/16 05:12 MCHC 30.9 g/dL (31.6-35.5) L 11/30/16 05:12 PT 14.1 Seconds (9.4-12.1) H 11/20/16 00:10 APTT 24.9 Seconds (26.0-36.0) L 11/20/16 00:10 ABG pCO2 46 mmHg (35-45) H 11/19/16 23:45 ABG pO2 62 mmHg (85-104) L 11/19/16 23:45 ABG HCO3 31.2 mEQ/L (21-27) H 11/19/16 23:45 ABG Total CO2 32.6 mEq/L (20-26) H 11/19/16 23:45 ABG O2 Saturation 92 % (95-98) L 11/19/16 23:45 ABG Base Excess 6.1 mEq/L (-2.0 to 3.0) H 11/19/16 23:45 BUN 37 mg/dL (8-26) H 11/30/16 05:12 Creatinine 5.33 mg/dL (0.72-1.25) H 11/30/16 05:12 Est GFR ( Amer) 13 (> 60) L 11/30/16 05:12 Est GFR (Non-Af Amer) 11 (> 60) L 11/30/16 05:12 Calculated Osmolality 304 (280-300) H 11/30/16 05:12 Phosphorus 6.5 mg/dL (2.3-4.7) H 11/29/16 08:20 Magnesium 1.1 mg/dL (1.6-2.6) L 11/20/16 04:43 Iron 14 mcg/dL (65-175) L 11/25/16 09:45 % Saturation 10 % (20-55) L 11/25/16 09:45 Transferrin 103 mg/dL (174-364) L 11/25/16 09:45 Alkaline Phosphatase 145 Units/L (38-126) H 11/28/16 04:36 Troponin I 0.05 ng/mL (0-0.03) H* 11/20/16 16:26 Albumin 2.1 g/dL (3.5-5.0) L 11/29/16 08:20 Globulin 4.2 g/dL (2.4-3.5) H 11/28/16 04:36 Albumin/Globulin Ratio 0.5 (1.1-2.2) L 11/28/16 04:36 Amylase 18 Units/L (25-125) L 11/25/16 16:04 Vitamin B12 865 pg/mL (213-816) H 11/25/16 09:45 Procalcitonin 0.87 ng/mL (<=0.10) H 11/25/16 16:04 Vancomycin Trough 71.6 mcg/mL (10-20) H* 11/24/16 03:25 Exam: 56 year old male patient, opens eyes to verbal stimuli, but remains lethargic. - Eye Eye exam: Present: EOMI - Respiratory Respiratory exam: Present: decreased breath sounds. Absent: accessory muscle use, respiratory distress, wheezes, tachypnea - Cardiovascular Cardiovascular exam: Present: RRR - GI/Abdominal GI/Abdominal exam: Present: normal bowel sounds, soft. Absent: distended, firm , guarding, tenderness - Extremities Exam Extremities exam: Absent: pedal edema - Neurological Exam Neurological exam: Present: alert (opens eyes to verbal stimuli, but remains sedated) - Psychiatric Psychiatric exam: Absent: agitated, anxious - Skin Skin exam: Present: dry, normal color, warm Palliative Quality Palliative Quality: Screen for Code Status: NA, Screen for Goals of Care: NA, Screen for Pain: Yes, If Pain Regimen Started, Initiate Bowel Regimen: Yes, Screen for Nausea/Vomitting: Yes Code Status: 11/20/16 03:31 Resuscitation Status: Active [RES] Routine Comment: Resuscitation Status: Full Code Resuscitation Status: Active [RES] Routine Comment: Resuscitation Status: DNR-Comfort Care-Arrest - Labs CBC & Chem 7: 11/30/16 05:12 11/30/16 05:12 Labs: Laboratory Results - last 24 hr 11/28/16 11/29/16 11/30/16 20:11 07:12 05:12 WBC 7.7 RBC 2.90 L Hgb 8.5 L Hct 27.5 L MCV 94.8 MCH 29.3 MCHC 30.9 L RDW 13.9 Plt Count 330 MPV 9.7 Immature Gran % 0.9 Seg Neutrophils % 69.9 Lymphocytes % 14.6 Monocytes % 13.6 Eosinophils % 0.9 Basophils % 0.1 Neutrophils # 5.4 Lymphocytes # 1.1 Monocytes # 1.0 Eosinophils # 0.1 Basophils # 0.0 Immature Plt Fraction 1.9 Sodium Potassium Chloride Carbon Dioxide BUN Creatinine Est GFR ( Amer) Est GFR (Non-Af Amer) BUN/Creatinine Ratio Glucose POC Glucose 100 H 80 Calculated Osmolality Calcium 11/30/16 05:12 WBC RBC Hgb Hct MCV MCH MCHC RDW Plt Count MPV Immature Gran % Seg Neutrophils % Lymphocytes % Monocytes % Eosinophils % Basophils % Neutrophils # Lymphocytes # Monocytes # Eosinophils # Basophils # Immature Plt Fraction Sodium 143 Potassium 4.5 Chloride 108 Carbon Dioxide 26 BUN 37 H Creatinine 5.33 H Est GFR ( Amer) 13 L Est GFR (Non-Af Amer) 11 L BUN/Creatinine Ratio 7 Glucose 81 POC Glucose Calculated Osmolality 304 H Calcium 9.6 - ABG Interpretation ABG results: ABG ABG pH 7.44 pH Units (7.32-7.45) 11/19/16 23:45 ABG pCO2 46 mmHg (35-45) H 11/19/16 23:45 ABG pO2 62 mmHg (85-104) L 11/19/16 23:45 ABG O2 Saturation 92 % (95-98) L 11/19/16 23:45 PT/INR, D-dimer PT 14.1 Seconds (9.4-12.1) H 11/20/16 00:10 Consult Discharge Plan - Plan Referrals: Shabana Llamas DO [Primary Care Provider] - 12/04/16 10:20 am
[2016-11-30] MEDS: Budesonide/Formoterol 160/4.5 MDI IH SCH ×2 (11:18→21:23)
--- NOTE | 2016-11-30 12:22 | Internal Med Progress Note ---
Date of Encounter: 11/30/16 Time of Encounter: 12:19 - Assessment and plan (1) Sepsis Current Visit: Yes Status: Acute Assessment and plan: 2/2 HCAP which is the primary source,. blood cx negative so far, RIP is negative repeat CT chest adn abdomen does not show any worsening signs or possible new source. antibiotic has been changed to levoflox as per ID, no fever since last 72hrs. will consult with ID about posible stopping antibiotics today, today is 5th day of levoflox. Qualifiers: Sepsis type: sepsis due to unspecified organism Qualified Code(s): A41.9 - Sepsis, unspecified organism (2) HCAP (healthcare-associated pneumonia) Current Visit: Yes Status: Acute Assessment and plan: fever is better, leucocytosis has resolved. will follow ID recommendations on antibiotics, RIP is negative ECHO done with no valvular vegetations, repeat CT chest shows no signs of obstruction or abscess. repeat blood cx shows no growth. will finish 5 days of IV levo today. . (3) Lung cancer Current Visit: Yes Status: Acute Assessment and plan: reports that he has received one cycle of chemotherapy so far. has possible mets in liver as well as adrenals appreciate oncology recommendations, patient wishes to f/u with oncology after dc to discuss treatment options. Qualifiers: Laterality: left Lung location: unspecified part of lung Qualified Code(s ): C34.92 - Malignant neoplasm of unspecified part of left bronchus or lung (4) Essential hypertension Current Visit: No Status: Chronic Assessment and plan: will continue to monitor (5) Acute kidney injury Current Visit: Yes Status: Acute Assessment and plan: most likely 2/2 vancomycin induced toxicity. passiun good urine, renal fxn better today however no signs of volume overload. vanco has been stopped. appreciate renal recommendations monitor I/O s , continue IVF fo rnow - Subjective Interval history: Seen at the bedside, more awake today, c/o of cannon catheter and asking to be removed. No temperature spike today , patient is not complaining of pain , denies any n/v /d. - Constitutional Vitals: Temp Pulse Resp BP Pulse Ox 99.1 F 102 18 152/89 92 11/30/16 11:19 11/30/16 11:30 11/30/16 11:19 11/30/16 11:19 11/30/16 11:19 General appearance: Present: A&O X 3, underweight, answers questions appropriately Exam: neck- supple chest- b/l clear, no added sounds CVS-s1 and s2, no m/r/g abd- soft, non tender, bs are present ext- no edema neuro- no focal defecits. Internal Medicine: Result - Labs CBC & Chem 7: 11/30/16 05:12 11/30/16 05:12 Labs: Short CBC 11/30/16 Range/Units 05:12 WBC 7.7 (4.3-11.1) K/mcL Hgb 8.5 L (12.9-16.9) g/dL Hct 27.5 L (37.5-50.1) % Plt Count 330 (140-400) K/mcL Neutrophils # 5.4 (1.6-8.9) K/mcL BMP 11/30/16 05:12 Sodium 143 Potassium 4.5 Chloride 108 Carbon Dioxide 26 BUN 37 H Creatinine 5.33 H Glucose 81 Calcium 9.6 - ABG Interpretation ABG results: ABG ABG pH 7.44 pH Units (7.32-7.45) 11/19/16 23:45 ABG pCO2 46 mmHg (35-45) H 11/19/16 23:45 ABG pO2 62 mmHg (85-104) L 11/19/16 23:45 ABG O2 Saturation 92 % (95-98) L 11/19/16 23:45 PT/INR, D-dimer PT 14.1 Seconds (9.4-12.1) H 11/20/16 00:10 Consult Discharge Plan - Plan Referrals: Shabana Llamas DO [Primary Care Provider] - 12/04/16 10:20 am
--- NOTE | 2016-11-30 14:41 | Infectious Disease Progress No ---
Date of Encounter: 11/30/16 Time of Encounter: 14:39 - Assessment and Plan (1) Sepsis Current Visit: Yes Status: Acute Patient has fevers. Etiology for the fever is not clear.concern for non infectious etiology could be due to pneumonia, but most recent CT wasn't very convincing for a pneumonia Patient really had a respiratory infectious panel which has been negative. Sputum culture in the past have also been negative. Patient also has significant abdominal pain, CT abodmen pelvis and blood work for lipase amylase and lfts are not impressive; etiology not clear, likely due to mets await procalcitonin and legionella antigen consider d/cing zosyn and starting levaquin (dose adjust based on crcl) Continue levofloxacin, duration of treatment 5 more days. Discussed with pharmacy, may switch Levaquin to 750 mg by mouth every 48 hours. Discussed with the hospitalist team. prognosis poor Qualifiers: Sepsis type: sepsis due to unspecified organism Qualified Code(s): A41.9 - Sepsis, unspecified organism (2) Abdominal pain Current Visit: Yes Status: Acute etiology not clear lipase/amylase/LFT's WNL CT abdomen without acute infectious process Qualifiers: Abdominal location: epigastric Qualified Code(s): R10.13 - Epigastric pain (3) Acute kidney injury Current Visit: Yes Status: Acute Cr must worse today secondary to vanc toxicity will continue to monitor (4) Pneumonia Current Visit: Yes Status: Acute repeat CT noted respiratory infectious panel noted will d/c zosyn start levaquin Qualifiers: Pneumonia type: due to unspecified organism Laterality: left Lung location: unspecified part of lung Qualified Code(s): J18.9 - Pneumonia, unspecified organism (5) Lung cancer Current Visit: Yes Status: Acute Diagnosed about 3 months ago. First chemotherapy session was about 09/24/16 Appears to be getting worse with metastases: Hematology oncology following. Not sure what the prognosis is. Qualifiers: Laterality: left Lung location: unspecified part of lung Qualified Code(s ): C34.92 - Malignant neoplasm of unspecified part of left bronchus or lung (6) CVA (cerebral vascular accident) Current Visit: No Status: Chronic Qualifiers: CVA mechanism: unspecified Qualified Code(s): I63.9 - Cerebral infarction, unspecified (7) Vancomycin poisoning Current Visit: Yes Status: Acute Qualifiers: Encounter type: initial encounter Injury intent: accidental or unintentional Qualified Code(s): T36.8X1A - Poisoning by other systemic antibiotics, accidental (unintentional), initial encounter (8) Cancer associated pain Current Visit: Yes Status: Acute - Subjective Interval history: Patient seen and examined. Continues to appear weak. Having chills. Unchanged clinically. Patient has not had a fever since November 27, 2016. Lung discussion with Dr. Gastelum from hospice, patient's prognosis is poor. Discussed with the hospitalist team. Infect Dis PN-Objective Data - Labs CBC & Chem 7: 11/30/16 05:12 11/30/16 05:12 Labs: Laboratory Results - last 24 hr 11/28/16 11/29/16 11/30/16 20:11 07:12 05:12 WBC 7.7 RBC 2.90 L Hgb 8.5 L Hct 27.5 L MCV 94.8 MCH 29.3 MCHC 30.9 L RDW 13.9 Plt Count 330 MPV 9.7 Immature Gran % 0.9 Seg Neutrophils % 69.9 Lymphocytes % 14.6 Monocytes % 13.6 Eosinophils % 0.9 Basophils % 0.1 Neutrophils # 5.4 Lymphocytes # 1.1 Monocytes # 1.0 Eosinophils # 0.1 Basophils # 0.0 Immature Plt Fraction 1.9 Sodium Potassium Chloride Carbon Dioxide BUN Creatinine Est GFR ( Amer) Est GFR (Non-Af Amer) BUN/Creatinine Ratio Glucose POC Glucose 100 H 80 Calculated Osmolality Calcium 11/30/16 05:12 WBC RBC Hgb Hct MCV MCH MCHC RDW Plt Count MPV Immature Gran % Seg Neutrophils % Lymphocytes % Monocytes % Eosinophils % Basophils % Neutrophils # Lymphocytes # Monocytes # Eosinophils # Basophils # Immature Plt Fraction Sodium 143 Potassium 4.5 Chloride 108 Carbon Dioxide 26 BUN 37 H Creatinine 5.33 H Est GFR ( Amer) 13 L Est GFR (Non-Af Amer) 11 L BUN/Creatinine Ratio 7 Glucose 81 POC Glucose Calculated Osmolality 304 H Calcium 9.6 Cultures: Cultures 11/23/16 08:30 Blood Culture - Final Peripheral Venipuncture No growth. 11/23/16 08:39 Blood Culture - Final Peripheral Venipuncture No growth. 11/25/16 17:06 Blood Culture - Preliminary Peripheral Venipuncture No growth. 11/25/16 17:06 Blood Culture - Preliminary Peripheral Venipuncture No growth. 11/25/16 19:05 Legionella Antigen - Final Urine,Clean Catch 11/20/16 15:00 Sputum Culture - Final Sputum Serology 11/25/16 Range/Units 11:30 Chlamy pneumoniae PCR Not Detected (Not Detect) Adenovirus (PCR) Not Detected (Not Detect) B. pertussis DNA (PCR) Not Detected (Not Detect) Coronavirus OC43 (PCR) Not Detected (Not Detect) Coronavirus HKU1 (PCR) Not Detected (Not Detect) Coronavirus 229E (PCR) Not Detected (Not Detect) Coronavirus NL63 (PCR) Not Detected (Not Detect) Human Metapneumovir PCR Not Detected (Not Detect) Influenza A (H1) PCR Not Detected (Not Detect) Influ A (H1N1/09) PCR Not Detected (Not Detect) Influenza A (H3) PCR Not Detected (Not Detect) Influenza A Untype (PCR) Not Detected (Not Detect) Influenza Type B (PCR) Not Detected (Not Detect) M.pneumoniae DNA (PCR) Not Detected (Not Detect) Parainfluenza 1 (PCR) Not Detected (Not Detect) Parainfluenza 2 (PCR) Not Detected (Not Detect) Parainfluenza 3 (PCR) Not Detected (Not Detect) Parainfluenza 4 (PCR) Not Detected (Not Detect) RSV (PCR) Not Detected (Not Detect) Entero/Rhino (PCR) Not Detected (Not Detect) Exam - Constitutional Vitals: Temp Pulse Resp BP Pulse Ox 99.1 F 102 18 152/89 92 11/30/16 11:19 11/30/16 11:30 11/30/16 11:19 11/30/16 11:19 11/30/16 11:19 General appearance: no acute distress, no febrile - Head Head exam: Present: atraumatic, normocephalic - Neck Neck exam: Present: full ROM - Respiratory Additional comments: Coarse breath sounds with diffuse rhonchi in both lung gill. Chest expanding symmetrically. - Cardiovascular Cardiovascular exam: Present: RRR, +S1, +S2 - GI/Abdominal GI/Abdominal exam: Present: soft, tenderness Additional comments: Diffuse tenderness. Does not remember when was the last time had a bowel movement - Extremities Exam Extremities exam: Present: normal inspection. Absent: tenderness Consult Discharge Plan - Plan Referrals: Shabana Llamas DO [Primary Care Provider] - 12/04/16 10:20 am
[2016-11-30] MEDS: Levofloxacin 500 MG/100 ML 500 MG/100 ML BAG IVPB SCH (19:10)
[2016-12-01] MEDS: Ipratropium/Albuterol Neb 3 ML IH SCH ×6 (00:59→21:32)
[2016-12-01] MEDS: *HR* OxyCODONE Immed Rel 5 MG TABLET PO PRN ×4 (04:25→17:58)
[2016-12-01 05:04] LABS: Albumin 2.2 g/dL (3.5-5.0); Albumin/Globulin Ratio 0.6 (1.1-2.2); Bilirubin,Total 0.2 mg/dL (0.2-1.2); Calcium 9.8 mg/dL (8.6-10.8); Globulin 3.9 g/dL (2.4-3.5); Potassium 3.9 mEq/L (3.5-4.5); Total Protein 6.1 g/dL (6.0-8.3)
--- NOTE | 2016-12-01 08:42 | Nephrology Progress Note ---
Date of Encounter: 12/01/16 Time of Encounter: 08:10 - Assessment and Plan (1) Acute kidney injury Current Visit: Yes Status: Acute ARMAAN in setting of Vanco toxicity, sepsis, PNA with GI losses and chronic NSAID use contributing. Renal US shows no underlying obstructive uropathy. Renal fct slowly improving, ceat 5.23. Documented urine output 750cc. Avoid nephrotoxins. Continue IV fluids. No urgent need for HD at this point, K 3.9, no volume overload. Bicarb 25. On low potassium diet. Patient in agreement of HD if needed. Will continue to monitor. Subjective Interval history: Awake, watching TV. States pain controlled. Objective - Vital Signs Vital signs: Vital Signs Temp Pulse Resp BP Pulse Ox 12/01/16 04:30 113 12/01/16 04:26 100.0 F H 114 20 173/99 92 12/01/16 00:30 109 11/30/16 23:45 100.0 F H 107 20 156/90 97 11/30/16 21:23 20 93 11/30/16 21:10 106 96 11/30/16 20:13 98.6 F 110 19 154/96 11/30/16 16:37 98.8 F 100 16 152/89 97 11/30/16 15:51 16 152/89 98 11/30/16 15:45 104 11/30/16 11:30 102 11/30/16 11:19 99.1 F 99 18 152/89 92 Intake and Output 11/30/16 12/01/16 12/01/16 23:59 07:59 15:59 Intake Total 1000 / 1000 Balance 1000 / 1000 Intake: IV Fluids 1000 / 1000 0.9 % Sodium Chloride 1, 1000 / 1000 000 ML @ 50 mls/hr IVC . Q20H SRAVANTHI Rx#:[id number] Other: Meal Dinner Percent of Meal Consumed 5% # Voids 1 2 Weight 77.8 kg Blood Glucose* 95 Patient Weight 12/01/16 23:59 Weight 77.8 kg - General Appearance General appearance: Present: well-developed, well-nourished, appears started age EENT: Present: mucous membranes moist Neck: Present: no JVD Respiratory: Present: clear Cardiology: Present: no edema, irregular rhythm Gastrointestinal: Present: hypoactive bowel sounds, no guarding Integumentary: Present: warm and dry Neurologic: Present: alert and oriented x3 Psychiatric: Present: mood/affect appropriate, cooperative - Lab 11/30/16 05:12 12/01/16 04:37 Most recent lab results ABG pH 7.44 pH Units (7.32-7.45) 11/19/16 23:45 ABG pCO2 46 mmHg (35-45) H 11/19/16 23:45 ABG pO2 62 mmHg (85-104) L 11/19/16 23:45 ABG HCO3 31.2 mEQ/L (21-27) H 11/19/16 23:45 ABG O2 Saturation 92 % (95-98) L 11/19/16 23:45 Calcium 9.8 mg/dL (8.6-10.8) 12/01/16 04:37 Phosphorus 6.5 mg/dL (2.3-4.7) H 11/29/16 08:20 Magnesium 1.1 mg/dL (1.6-2.6) L 11/20/16 04:43 Consult Discharge Plan - Plan Referrals: Shabana Llamas DO [Primary Care Provider] - 12/04/16 10:20 am
[2016-12-01] MEDS: Nicotine 21 MG PATCH.TD24 TD SCH (08:58)
[2016-12-01] MEDS: Aspirin 81 MG TAB.CHEW PO SCH (08:58)
[2016-12-01] MEDS: *HR* Heparin 5,000 UNIT/ML VIAL SQ SCH ×3 (08:58→22:33)
[2016-12-01] MEDS: Folic Acid 1 MG TABLET PO SCH (08:58)
[2016-12-01] MEDS: lamoTRIgine 25 MG TABLET PO SCH ×2 (08:58→22:27)
[2016-12-01] MEDS: Sennosides/Docusate Sodium TABLET PO SCH ×2 (08:59→22:27)
[2016-12-01] MEDS: Metoprolol XL (24 HR) Succ 50 MG TAB.ER.24H PO SCH (08:59)
--- NOTE | 2016-12-01 10:52 | Internal Med Progress Note ---
Date of Encounter: 12/02/16 (Late entry) Time of Encounter: 10:50 - Assessment and plan (1) Sepsis Current Visit: Yes Status: Acute Qualifiers: Sepsis type: sepsis due to unspecified organism Qualified Code(s): A41.9 - Sepsis, unspecified organism (2) Acute respiratory failure Current Visit: Yes Status: Acute Qualifiers: Respiratory failure complication: hypoxia Qualified Code(s): J96.01 - Acute respiratory failure with hypoxia (3) Cancer associated pain Current Visit: Yes Status: Acute (4) Tobacco abuse Current Visit: Yes Status: Chronic (5) HCAP (healthcare-associated pneumonia) Current Visit: Yes Status: Acute (6) Elevated troponin Current Visit: Yes Status: Acute (7) COPD exacerbation Current Visit: No Status: Acute (8) DVT prophylaxis Current Visit: No Status: Acute (9) Hypomagnesemia Current Visit: Yes Status: Acute (10) Acute kidney injury Current Visit: Yes Status: Acute - Subjective Interval history: Patient is a 56-year-old male with metastatic lung cancer who follows with Dr. Kendrick. Patient presented [facility] ED one day ago ith sepsis secondary to pneumonia. Patient had a CT chest which lung cancer. He had a temperature of 101.3 heart rate of 140,22, leukocytosis with WBC of 17. Patient did receive vancomycin 1, Zosyn 3.375 mg, and Levaquin 750 mg in the ED prior to admission to the ICU. He was continued on Vancomycin 1250mg q12hr, Zosyn 3.375mg q8hr, Levaquin 750 mg daily. Patient was previously hospitalized on 11/04/16 for sepsis secondary to pneumonia. He was discharged on 11/07/16. The patient was seen. He is sitting in bed eating his lunch and does not seem to be uncomfortable. Troponin elevated and will be repeated as well as CBC and CMP. Clinically he denies any chest pain. 11/21 breathing better and has been transferred out of ICU to stepdown unit. Still needs oxygen. Breath sounds still shallow. Continue current treatment as overall breath sounds are improving. Magnesium was low therefore supplemented. On admission patient troponin were mildly elevated of significance. An echocardiogram was done which showed normal cardiac ejection fraction of 55% no wall motion abnormality in LV with a good systolic function mild diastolic dysfunction noted valvular no significant valvular abnormality. 11/22 breathing has started improving. From tomorrow we may start tapering steroids. No other complaint. 11/23 this morning temperature 101.5. Ordered blood culture 2 stat repeat CBC CMP, and chest x-ray. On November 20 Levaquin was stopped by pulmonology. Blood and sputum cultures are negative to this date. Currently patient is on IV vancomycin and Zosyn. Echocardiogram reported yesterday showing ejection fraction in the range of 65-70% no significant valvular abnormality or LV dysfunction or vegetation. It was a transthoracic echo. 12/01 patient care was taken over from hospitalist team . It was noted the patient developed acute renal failure due to perhaps a combination of sepsis and vancomycin toxicity. Nephrology is case. Ultrasound did not show any obstruction. Hayes is still running low-grade temperature. Renal function has started improving and now creatinine is 5.23. - Constitutional Vitals: Temp Pulse Resp BP Pulse Ox 100.1 F H 120 16 159/94 93 12/01/16 07:35 12/01/16 09:03 12/01/16 09:03 12/01/16 07:35 12/01/16 09:03 General appearance: Present: A&O X 3, underweight, answers questions appropriately Internal Medicine: Result - Labs CBC & Chem 7: 11/30/16 05:12 12/01/16 04:37 Labs: BMP 12/01/16 04:37 Sodium 142 Potassium 3.9 Chloride 109 Carbon Dioxide 25 BUN 35 H Creatinine 5.23 H Glucose 92 Calcium 9.8 Liver Function 12/01/16 Range/Units 04:37 Total Bilirubin 0.2 (0.2-1.2) mg/dL AST 14 (5-34) Units/L ALT 12 (0-55) Units/L Alkaline Phosphatase 107 (38-126) Units/L Albumin 2.2 L (3.5-5.0) g/dL - ABG Interpretation ABG results: ABG ABG pH 7.44 pH Units (7.32-7.45) 11/19/16 23:45 ABG pCO2 46 mmHg (35-45) H 11/19/16 23:45 ABG pO2 62 mmHg (85-104) L 11/19/16 23:45 ABG O2 Saturation 92 % (95-98) L 11/19/16 23:45 PT/INR, D-dimer PT 14.1 Seconds (9.4-12.1) H 11/20/16 00:10 - Impressions Impressions Chest CT 11/25/16 18:30 IMPRESSION: 1. Unchanged mass-like opacity in the left hilar region with superimposed left upper lobe consolidation. 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 Superimposed infection again cannot be excluded. No appreciable change since prior study. 2. Enlarged mediastinal lymph nodes and nodules in the right lower lobe, for which metastatic disease is not excluded. 3. Question osseous lesions in the thoracic vertebra and sternum. Metastatic disease is not excluded. D/ / 11/25/2016 21:42:46 Kilo Spring MD / earnold Interpreting Provider: Kilo Spring MD Consult Discharge Plan - Plan Referrals: Shabana Llamas DO [Primary Care Provider] - 12/11/16 10:20 am
[2016-12-01] MEDS: Budesonide/Formoterol 160/4.5 MDI IH SCH ×2 (11:37→21:32)
[2016-12-01] MEDS: Ondansetron 4 MG/2 ML VIAL IVP PRN (19:56)
[2016-12-01] MEDS: 0.9 % Sodium Chloride 1,000 ML IVC SCH (19:57)
[2016-12-01] MEDS: *HR* FentaNYL (PF) 100 MCG/2 ML VIAL IVP PRN (20:45)
[2016-12-02] MEDS: Ipratropium/Albuterol Neb 3 ML IH SCH ×6 (00:25→21:03)
[2016-12-02] MEDS: *HR* FentaNYL (PF) 100 MCG/2 ML VIAL IVP PRN (04:42)
[2016-12-02] MEDS ORDERED: *HR* FentaNYL (PF) 100 MCG/2 ML VIAL IVP PRN (07:35)
[2016-12-02] MEDS: Budesonide/Formoterol 160/4.5 MDI IH SCH ×2 (08:15→21:03)
--- NOTE | 2016-12-02 08:36 | Palliative Progress Note ---
Date of Encounter: 12/02/16 Time of Encounter: 07:20 - Assessment and plan (1) Cancer associated pain Current Visit: Yes Status: Acute Assessment and plan: Overall the patient seems to be doing well with meds, agent is wide awake this morning out discomfort however, Last night the dosing interval on the release medications was a bit long. Therefore I have asked that the nurses refrain from fentanyl until after the oral medications have failed, I will make the oral medications available hourly if needed. The patient is off all scheduled opioid medication at this time (2) Sepsis Current Visit: Yes Status: Acute Assessment and plan: White blood cell count is normal today, no fever this morning, however the patient is tachycardic. Blood cultures are negative Legionella is negative, his disease is following. Plan per infectious disease and hospitalist team. Qualifiers: Sepsis type: sepsis due to unspecified organism Qualified Code(s): A41.9 - Sepsis, unspecified organism (3) Acute kidney injury Current Visit: Yes Status: Acute Assessment and plan: Creatinine slightly better today, although this may be within the range of lab error. Nephrology is following. (4) Counseling regarding advanced directives and goals of care Current Visit: Yes Status: Acute Assessment and plan: The patient is DNR CCA, (5) Therapeutic opioid induced constipation Current Visit: Yes Status: Acute Assessment and plan: The patient states he is having bowel movements, and these are at least to some degree recorded. Continue current medications. - Time Spent With Patient Total time spent is greater than 50% in coordination of care (as documented) at patient's floor/unit and/or counseling patient: - Subjective Interval history: The patient is awake and alert this morning. And able to carry on a conversation with me. He has no complaint of shortness of breath or pain at this time states that his bowels are moving, as have some appetite.'s cussed with nursing staff, the patient did have some pain over the evening I am not sure if they try the oxycodone but got an order for IV fentanyl just did work. We see assessment and plan. - Constitutional Vitals: Abnormal lab results RBC 2.90 M/mcL (4.19-5.50) L 11/30/16 05:12 Hgb 8.5 g/dL (12.9-16.9) L 11/30/16 05:12 Hct 27.5 % (37.5-50.1) L 11/30/16 05:12 MCHC 30.9 g/dL (31.6-35.5) L 11/30/16 05:12 PT 14.1 Seconds (9.4-12.1) H 11/20/16 00:10 APTT 24.9 Seconds (26.0-36.0) L 11/20/16 00:10 ABG pCO2 46 mmHg (35-45) H 11/19/16 23:45 ABG pO2 62 mmHg (85-104) L 11/19/16 23:45 ABG HCO3 31.2 mEQ/L (21-27) H 11/19/16 23:45 ABG Total CO2 32.6 mEq/L (20-26) H 11/19/16 23:45 ABG O2 Saturation 92 % (95-98) L 11/19/16 23:45 ABG Base Excess 6.1 mEq/L (-2.0 to 3.0) H 11/19/16 23:45 BUN 35 mg/dL (8-26) H 12/01/16 04:37 Creatinine 5.23 mg/dL (0.72-1.25) H 12/01/16 04:37 Est GFR ( Amer) 14 (> 60) L 12/01/16 04:37 Est GFR (Non-Af Amer) 11 (> 60) L 12/01/16 04:37 Calculated Osmolality 302 (280-300) H 12/01/16 04:37 Phosphorus 6.5 mg/dL (2.3-4.7) H 11/29/16 08:20 Magnesium 1.1 mg/dL (1.6-2.6) L 11/20/16 04:43 Iron 14 mcg/dL (65-175) L 11/25/16 09:45 % Saturation 10 % (20-55) L 11/25/16 09:45 Transferrin 103 mg/dL (174-364) L 11/25/16 09:45 Troponin I 0.05 ng/mL (0-0.03) H* 11/20/16 16:26 Albumin 2.2 g/dL (3.5-5.0) L 12/01/16 04:37 Globulin 3.9 g/dL (2.4-3.5) H 12/01/16 04:37 Albumin/Globulin Ratio 0.6 (1.1-2.2) L 12/01/16 04:37 Amylase 18 Units/L (25-125) L 11/25/16 16:04 Vitamin B12 865 pg/mL (213-816) H 11/25/16 09:45 Procalcitonin 0.87 ng/mL (<=0.10) H 11/25/16 16:04 Vancomycin Trough 71.6 mcg/mL (10-20) H* 11/24/16 03:25 General appearance: Present: no acute distress - Head Head exam: Present: atraumatic, normal inspection - Eye Eye exam: Present: normal appearance - ENT ENT exam: Present: mucous membranes moist - Respiratory Respiratory exam: Present: decreased breath sounds, rhonchi - Cardiovascular Cardiovascular exam: Present: RRR, tachycardia - GI/Abdominal GI/Abdominal exam: Present: normal bowel sounds, soft. Absent: tenderness - Extremities Exam Extremities exam: Absent: tenderness - Neurological Exam Neurological exam: Present: alert - Psychiatric Psychiatric exam: Present: normal affect, normal mood. Absent: agitated, anxious - Skin Skin exam: Present: dry, warm Palliative Quality Palliative Quality: Screen for Code Status: NA, Screen for Goals of Care: NA, Screen for Pain: Yes, If Pain Regimen Started, Initiate Bowel Regimen: Yes, Screen for Nausea/Vomitting: Yes Code Status: 11/20/16 03:31 Resuscitation Status: Active [RES] Routine Comment: Resuscitation Status: Full Code Resuscitation Status: Active [RES] Routine Comment: Resuscitation Status: DNR-Comfort Care-Arrest - Labs CBC & Chem 7: 11/30/16 05:12 12/01/16 04:37 Labs: Laboratory Results - last 24 hr 12/01/16 12/01/16 12/01/16 11:31 17:43 23:55 POC Glucose 80 81 75 - ABG Interpretation ABG results: ABG ABG pH 7.44 pH Units (7.32-7.45) 11/19/16 23:45 ABG pCO2 46 mmHg (35-45) H 11/19/16 23:45 ABG pO2 62 mmHg (85-104) L 11/19/16 23:45 ABG O2 Saturation 92 % (95-98) L 11/19/16 23:45 PT/INR, D-dimer PT 14.1 Seconds (9.4-12.1) H 11/20/16 00:10 Consult Discharge Plan - Plan Referrals: Shabana Llamas DO [Primary Care Provider] - 12/04/16 10:20 am
[2016-12-02] MEDS: Nicotine 21 MG PATCH.TD24 TD SCH (08:46)
[2016-12-02] MEDS: lamoTRIgine 25 MG TABLET PO SCH ×2 (08:49→21:17)
[2016-12-02] MEDS: Aspirin 81 MG TAB.CHEW PO SCH (08:50)
[2016-12-02] MEDS: Metoprolol XL (24 HR) Succ 50 MG TAB.ER.24H PO SCH (08:50)
[2016-12-02] MEDS: Sennosides/Docusate Sodium TABLET PO SCH ×2 (08:51→21:17)
[2016-12-02] MEDS: *HR* Heparin 5,000 UNIT/ML VIAL SQ SCH ×2 (08:51→18:38)
[2016-12-02] MEDS: Folic Acid 1 MG TABLET PO SCH (08:51)
--- NOTE | 2016-12-02 09:00 | Nephrology Progress Note ---
Date of Encounter: 12/02/16 Time of Encounter: 08:58 - Assessment and Plan (1) Acute kidney injury Current Visit: Yes Status: Acute There is no lab available for today. Urine output has not been recorded. His of yesterday the patient's renal function has continued to improve at a slow rate. (2) Lung cancer Current Visit: Yes Status: Acute Qualifiers: Laterality: left Lung location: unspecified part of lung Qualified Code(s ): C34.92 - Malignant neoplasm of unspecified part of left bronchus or lung Subjective Interval history: Patient is having some shortness of breath. Otherwise he is without complaints. His renal function continues to slowly improve as of yesterday. Today's lab is pending. Urine output is not recorded. Objective - Vital Signs Vital signs: Vital Signs Temp Pulse Resp BP Pulse Ox 12/02/16 06:54 98.5 F 123 20 152/89 96 12/02/16 05:33 100.0 F H 126 20 162/91 91 12/02/16 05:13 95 12/02/16 00:30 129 12/02/16 00:25 19 90 12/01/16 23:47 100.6 F H 129 20 148/81 90 12/01/16 21:32 24 91 12/01/16 19:12 99.8 F H 112 20 157/93 96 12/01/16 18:04 113 94 12/01/16 16:28 98.9 F 125 20 141/84 92 12/01/16 16:20 94 12/01/16 13:39 125 24 90 12/01/16 11:51 112 18 151/96 94 12/01/16 11:27 99.7 F H 112 18 151/96 94 12/01/16 09:03 120 16 93 Intake and Output 12/01/16 12/02/16 12/02/16 23:59 07:59 15:59 Intake Total 237 / 237 Output Total 775 / 775 Balance 237 / 237 -775 / -775 Intake: Oral 237 / 237 Output: Urine 775 / 775 Other: Stool Size Small Stool Consistency formed Stool Characteristics Normal for Patient Stool Color Brown # Voids 1 Weight 78.8 kg Blood Glucose* 75 77 - General Appearance Exam: Patient is alert and oriented. He is in no acute distress. Lungs coarse breath sounds and rhonchi. Heart regular rhythm. Abdomen is benign. There is no lower extremity swelling. - Lab 11/30/16 05:12 12/01/16 04:37 Most recent lab results ABG pH 7.44 pH Units (7.32-7.45) 11/19/16 23:45 ABG pCO2 46 mmHg (35-45) H 11/19/16 23:45 ABG pO2 62 mmHg (85-104) L 11/19/16 23:45 ABG HCO3 31.2 mEQ/L (21-27) H 11/19/16 23:45 ABG O2 Saturation 92 % (95-98) L 11/19/16 23:45 Calcium 9.8 mg/dL (8.6-10.8) 12/01/16 04:37 Phosphorus 6.5 mg/dL (2.3-4.7) H 11/29/16 08:20 Magnesium 1.1 mg/dL (1.6-2.6) L 11/20/16 04:43 Consult Discharge Plan - Plan Referrals: Shabana Llamas DO [Primary Care Provider] - 12/04/16 10:20 am
[2016-12-02] MEDS: Ondansetron 4 MG/2 ML VIAL IVP PRN (09:02)
[2016-12-02] MEDS: *HR* OxyCODONE Immed Rel 5 MG TABLET PO PRN ×3 (09:03→18:18)
[2016-12-02] MEDS ORDERED: Furosemide 40 MG/4 ML VIAL ONE (11:59)
[2016-12-02] MEDS ORDERED: Furosemide 40 MG/4 ML VIAL IVP ONE ×2 (12:15→19:30)
--- NOTE | 2016-12-02 14:13 | Event Note ---
Date of Encounter: 12/02/16 Time of Encounter: 14:10 i have stopped the iv fentanyl d/t I believe the patient can do well with oral meds only. He will not be able to be d/c'd on IV meds and when given earlier today the IR oxycodone was effective in that he was asleep on reassessment 45 minutes later the doses are equianalgesic 10 mg oxycodone it 15 oral morphine equilivents and 50 mcg of fentanyl is equianalgesic to 5 mg iv morphine which is 15 oral morphine equilivents
--- NOTE | 2016-12-02 14:27 | Infectious Disease Progress No ---
Date of Encounter: 12/02/16 Time of Encounter: 14:25 - Assessment and Plan (1) Sepsis Current Visit: Yes Status: Acute The patient had three SIRS criteria on admission (leukocytosis, tachycardia, and fever) on admission. He continues to have tachycardia and fevers and has developed intermittent tachycardia. Etiology unclear. CT of the chest not convincing for PNA, but given the patient' s recent AMS, maybe he is aspirating. Patient previously treated with 4 days of IV Vanc and 7 days of IV Zosyn. CT of the abdomen negative for infectious etiology as well. Legionella UAT negative. Procalcitonin elevated at 0.87. Blood cultures drawn 11/20/16 x 2 sets, 11/23/16 x 2 sets, and 11/25/16 x 2 sets are negative. Sputum culture obtained 11/20/16 is negative as well. Repeat sputum culture. Request RT get an induced sputum to get an adequate specimen. Repeat blood cultures x 3 sets now. Continue Levaquin 750mg IV Q48H (day 7). Get repeat CT of the chest, abdomen, and pelvis without contrast now. Qualifiers: Sepsis type: sepsis due to unspecified organism Qualified Code(s): A41.9 - Sepsis, unspecified organism (2) Pneumonia Current Visit: Yes Status: Acute Causative organism unclear. CT of the chest 11/25/16 shows unchanged mass-like opacity in the left hilar region with superimposed left upper lobe consolidation. 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 The patient continues to have fevers with moist cough, tachypnea, and hypoxia. The patient's mental status appears somewhat altered today. Consider aspiration pneumonia. Repeat CT scan of the chest without contrast. See antibiotic recommendations above. Consider swallow evaluation if not already done. May need to consider pulmonology consult. Qualifiers: Pneumonia type: due to unspecified organism Laterality: left Lung location: unspecified part of lung Qualified Code(s): J18.9 - Pneumonia, unspecified organism (3) Acute kidney injury Current Visit: Yes Status: Acute Likely secondary to vanc toxicity. Serum creatinine stable. Nephrology has been consulted and following. 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 Continue to trend. Avoid nephrotoxins as able and dose-adjust antibiotics. (4) Vancomycin poisoning Current Visit: Yes Status: Acute Qualifiers: Encounter type: initial encounter Injury intent: accidental or unintentional Qualified Code(s): T36.8X1A - Poisoning by other systemic antibiotics, accidental (unintentional), initial encounter (5) Abdominal pain Current Visit: Yes Status: Acute Etiology not clear. Lipase/amylase/LFT's WNL. CT abdomen without acute infectious process. Pain management per the primary and palliative care teams. Qualifiers: Abdominal location: epigastric Qualified Code(s): R10.13 - Epigastric pain (6) CVA (cerebral vascular accident) Current Visit: No Status: Chronic Qualifiers: CVA mechanism: unspecified Qualified Code(s): I63.9 - Cerebral infarction, unspecified (7) Lung cancer Current Visit: Yes Status: Acute Diagnosed 3 months ago. First chemotherapy session was about 09/24/16. Appears to be getting worse with metastases. Hem/Onc following. Palliative care has been consulted. Qualifiers: Laterality: left Lung location: unspecified part of lung Qualified Code(s ): C34.92 - Malignant neoplasm of unspecified part of left bronchus or lung (8) Cancer associated pain Current Visit: Yes Status: Acute Palliative care consulted. - Subjective Interval history: Patient seen and examined. No acute events noted overnight. Review of the record shows the patient has had a fever with Tmax 100.6 over the past 24 hours. Patient resting in bed, tachypneic and appears restless. He is slow to respond to questions and sometimes needs encouraged to participate in the exam. SpO2 86% upon my arrival to the room. Difficult to obtain ROS information due to the patient's mental status, but he denies pain and states he feels short of breath. Otherwise, does not answer questions. Discussed with nursing. Requested RT provide breathing treatment per orders. Infect Dis PN-Objective Data - Labs CBC & Chem 7: 12/03/16 05:01 12/03/16 05:01 Labs: Laboratory Results - last 24 hr 12/01/16 12/01/16 12/01/16 11:31 17:43 23:55 POC Glucose 80 81 75 Cultures: Cultures 11/25/16 17:06 Blood Culture - Final Peripheral Venipuncture No growth. 11/25/16 17:06 Blood Culture - Final Peripheral Venipuncture No growth. 11/23/16 08:30 Blood Culture - Final Peripheral Venipuncture No growth. 11/23/16 08:39 Blood Culture - Final Peripheral Venipuncture No growth. 11/25/16 19:05 Legionella Antigen - Final Urine,Clean Catch 11/20/16 15:00 Sputum Culture - Final Sputum Serology 11/25/16 Range/Units 11:30 Chlamy pneumoniae PCR Not Detected (Not Detect) Adenovirus (PCR) Not Detected (Not Detect) B. pertussis DNA (PCR) Not Detected (Not Detect) Coronavirus OC43 (PCR) Not Detected (Not Detect) Coronavirus HKU1 (PCR) Not Detected (Not Detect) Coronavirus 229E (PCR) Not Detected (Not Detect) Coronavirus NL63 (PCR) Not Detected (Not Detect) Human Metapneumovir PCR Not Detected (Not Detect) Influenza A (H1) PCR Not Detected (Not Detect) Influ A (H1N1/09) PCR Not Detected (Not Detect) Influenza A (H3) PCR Not Detected (Not Detect) Influenza A Untype (PCR) Not Detected (Not Detect) Influenza Type B (PCR) Not Detected (Not Detect) M.pneumoniae DNA (PCR) Not Detected (Not Detect) Parainfluenza 1 (PCR) Not Detected (Not Detect) Parainfluenza 2 (PCR) Not Detected (Not Detect) Parainfluenza 3 (PCR) Not Detected (Not Detect) Parainfluenza 4 (PCR) Not Detected (Not Detect) RSV (PCR) Not Detected (Not Detect) Entero/Rhino (PCR) Not Detected (Not Detect) Exam - Constitutional Vitals: Temp Pulse Resp BP Pulse Ox 98.7 F 116 20 152/98 89 12/02/16 11:29 12/02/16 11:29 12/02/16 06:54 12/02/16 11:29 12/02/16 11:29 General appearance: average body habitus, mild distress, no febrile - Head Head exam: Present: atraumatic, normal inspection, normocephalic - Eye Eye exam: Present: EOMI, normal appearance, PERRL Pupils: Present: normal accommodation - ENT ENT exam: Present: mucous membranes dry - Neck Neck exam: Present: normal inspection - Respiratory Respiratory exam: Present: decreased breath sounds (throughout), respiratory distress, wheezes (Coarse, throughout ), tachypnea - Cardiovascular Cardiovascular exam: Present: tachycardia. Absent: irregular rhythm - GI/Abdominal GI/Abdominal exam: Present: normal bowel sounds, soft. Absent: distended, tenderness - Extremities Exam Extremities exam: Present: normal inspection. Absent: joint swelling, pedal edema, tenderness - Neurological Exam Neurological exam: Present: alert, altered (Does not answer questions, slow to respond, difficult to get the patient to participate in exam.) - Skin Skin exam: Present: dry, intact, normal color, warm - Additional findings Additional findings: A-port noted to the right upper chest, accessed with 19g Ragland needle. Transparent dressing C/D/I. Consult Discharge Plan - Plan Referrals: Shabana Llamas DO [Primary Care Provider] - 12/11/16 10:20 am - Attending Attestation I examined this patient and my medical decision-making was reviewed with the MOSS GATHERER/PA/Advanced Practice Nurse/Resident Physician. I agree with the documented findings, disposition and treatment plan as described except to the extent set forth below. Discussed at length with the hospitalist team. initially we were oncenred about aspiration pneumonia vs post obstructive pneumonia. Patient has been on antibiocis for 3 weeks plus already. repeat imaging, get cultures, swallow eval , if post obstructivve pneumonia, will restart broad spectrum abx and consult pulmonary. prognosis poor.
[2016-12-02] MEDS ORDERED: Vancomycin 1 EACH in EMPTY BAG 1 EACH IVPB SCH (16:00)
[2016-12-02] MEDS ORDERED: Piperacillin/Tazobactam 3.375 GM in D5% in Water (Mini-Bag+) 100 ML IVPB SCH (18:00)
[2016-12-02] MEDS: Levofloxacin 500 MG/100 ML 500 MG/100 ML BAG IVPB SCH (18:19)
--- NOTE | 2016-12-02 19:56 | Internal Med Progress Note ---
Date of Encounter: 12/02/16 Time of Encounter: 10:00 - Assessment and plan (1) Sepsis Current Visit: Yes Status: Acute Qualifiers: Sepsis type: sepsis due to unspecified organism Qualified Code(s): A41.9 - Sepsis, unspecified organism (2) Acute respiratory failure Current Visit: Yes Status: Acute Qualifiers: Respiratory failure complication: hypoxia Qualified Code(s): J96.01 - Acute respiratory failure with hypoxia (3) Cancer associated pain Current Visit: Yes Status: Acute (4) Tobacco abuse Current Visit: Yes Status: Chronic (5) HCAP (healthcare-associated pneumonia) Current Visit: Yes Status: Acute (6) Elevated troponin Current Visit: Yes Status: Acute (7) COPD exacerbation Current Visit: No Status: Acute (8) DVT prophylaxis Current Visit: No Status: Acute (9) Hypomagnesemia Current Visit: Yes Status: Acute (10) Acute kidney injury Current Visit: Yes Status: Acute (11) Congestive heart failure Current Visit: Yes Status: Acute Qualifiers: Qualified Code(s): I50.31 - Acute diastolic (congestive) heart failure - Subjective Interval history: Patient is a 56-year-old male with metastatic lung cancer who follows with Dr. Kendrick. Patient presented [facility] ED one day ago ith sepsis secondary to pneumonia. Patient had a CT chest which lung cancer. He had a temperature of 101.3 heart rate of 140,22, leukocytosis with WBC of 17. Patient did receive vancomycin 1, Zosyn 3.375 mg, and Levaquin 750 mg in the ED prior to admission to the ICU. He was continued on Vancomycin 1250mg q12hr, Zosyn 3.375mg q8hr, Levaquin 750 mg daily. Patient was previously hospitalized on 11/04/16 for sepsis secondary to pneumonia. He was discharged on 11/07/16. The patient was seen. He is sitting in bed eating his lunch and does not seem to be uncomfortable. Troponin elevated and will be repeated as well as CBC and CMP. Clinically he denies any chest pain. 11/21 breathing better and has been transferred out of ICU to stepdown unit. Still needs oxygen. Breath sounds still shallow. Continue current treatment as overall breath sounds are improving. Magnesium was low therefore supplemented. On admission patient troponin were mildly elevated of significance. An echocardiogram was done which showed normal cardiac ejection fraction of 55% no wall motion abnormality in LV with a good systolic function mild diastolic dysfunction noted valvular no significant valvular abnormality. 11/22 breathing has started improving. From tomorrow we may start tapering steroids. No other complaint. 11/23 this morning temperature 101.5. Ordered blood culture 2 stat repeat CBC CMP, and chest x-ray. On November 20 Levaquin was stopped by pulmonology. Blood and sputum cultures are negative to this date. Currently patient is on IV vancomycin and Zosyn. Echocardiogram reported yesterday showing ejection fraction in the range of 65-70% no significant valvular abnormality or LV dysfunction or vegetation. It was a transthoracic echo. 12/01 patient care was taken over from hospitalist team . It was noted the patient developed acute renal failure due to perhaps a combination of sepsis and vancomycin toxicity. Nephrology is case. Ultrasound did not show any obstruction. Hayes is still running low-grade temperature. Renal function has started improving and now creatinine is 5.23. 12/02 this morning patient was noted to be quite short of breath unable to lay flat and his JVD was noted to be elevated. We stopped the IV fluid give him a dose of IV Lasix and reexamine in in a few hours his condition improved quite a bit. Unfortunately he did not safe his urine. In any case he seems to be much better though is still high known to [facility] nursing [facility] [place] [facility] for another dose of IV Lasix given. His renal functions are not improving. Case discussed with infectious disease was concerned that despite change in antibiotics patient fever has returned. I have suggested if he stop all antibiotics recultured him and see what we find out because I am concerned that while she is in hospital for such a long period of time if he is developing any other source or if he has postobstructive pneumonia in which case probably Diego will be warranted. At this time his CBC CMP will be repeated. Continue current treatment. Renal function are not improving much. Discharge planning discussed with the team patient and his family in presence of patient. I think he will be a single home candidate though at this time he wants to go home. Not sure about the nature of his heart failure but I suspect fluid overload due to continuous infusion and poor renal function. Echocardiogram done during this admission showed normal cardiac ejection fraction with diastolic dysfunction - Constitutional Vitals: Temp Pulse Resp BP Pulse Ox 98.5 F 100 18 155/100 94 12/02/16 17:06 12/02/16 17:06 12/02/16 17:06 12/02/16 17:06 12/02/16 17:06 General appearance: Present: A&O X 3, underweight, answers questions appropriately - Neck Additional comments: Positive JVD all the way to his ears - Respiratory Respiratory exam: Present: decreased breath sounds Internal Medicine: Result - Labs CBC & Chem 7: 11/30/16 05:12 12/01/16 04:37 - ABG Interpretation ABG results: ABG ABG pH 7.44 pH Units (7.32-7.45) 11/19/16 23:45 ABG pCO2 46 mmHg (35-45) H 11/19/16 23:45 ABG pO2 62 mmHg (85-104) L 11/19/16 23:45 ABG O2 Saturation 92 % (95-98) L 11/19/16 23:45 PT/INR, D-dimer PT 14.1 Seconds (9.4-12.1) H 11/20/16 00:10 Consult Discharge Plan - Plan Referrals: Shabana Llamas DO [Primary Care Provider] - 12/11/16 10:20 am
[2016-12-03] MEDS: Ipratropium/Albuterol Neb 3 ML IH SCH ×3 (00:12→07:54)
[2016-12-03] MEDS: *HR* Heparin 5,000 UNIT/ML VIAL SQ SCH ×4 (00:59→23:24)
[2016-12-03 05:52] LABS: Basophils % 0.2 %; Eosinophils # 0.2 K/mcL (0.0-0.6); Eosinophils % 1.4 %; Hematocrit 27.5 % (37.5-50.1); Hemoglobin 8.7 g/dL (12.9-16.9); Immature Granulocytes % 1.1 % (0-4); Lymphocytes # 1.5 K/mcL (0.6-4.6); Lymphocytes % 13.8 %; Mean Corpuscular HGB Conc 31.6 g/dL (31.6-35.5); Mean Corpuscular Hemoglobin 29.3 pg (28.0-33.3); Mean Corpuscular Volume 92.6 fL (83.0-100.0); Mean Platelet Volume 10.1 fL (9.4-12.4); Monocytes # 1.5 K/mcL (0.0-1.3); Monocytes % 13.4 %; Neutrophils # 7.6 K/mcL (1.6-8.9); Platelet Count 292 K/mcL (140-400); Red Blood Count 2.97 M/mcL (4.19-5.50); Red Cell Distribution Width 14.2 % (11.5-14.5); Segmented Neutrophils % 70.1 %
[2016-12-03 06:07] LABS: Albumin 2.1 g/dL (3.5-5.0); Albumin/Globulin Ratio 0.5 (1.1-2.2); Bilirubin,Total 0.2 mg/dL (0.2-1.2); Calcium 10.3 mg/dL (8.6-10.8); Globulin 4.1 g/dL (2.4-3.5); Potassium 3.5 mEq/L (3.5-4.5); Total Protein 6.2 g/dL (6.0-8.3)
[2016-12-03] MEDS: Budesonide/Formoterol 160/4.5 MDI IH SCH (07:54)
[2016-12-03] MEDS: Nicotine 21 MG PATCH.TD24 TD SCH (08:20)
[2016-12-03] MEDS: Folic Acid 1 MG TABLET PO SCH (08:21)
[2016-12-03] MEDS: Sennosides/Docusate Sodium TABLET PO SCH ×2 (08:21→20:24)
[2016-12-03] MEDS: lamoTRIgine 25 MG TABLET PO SCH ×2 (08:21→20:24)
[2016-12-03] MEDS: Aspirin 81 MG TAB.CHEW PO SCH (08:22)
[2016-12-03] MEDS: Metoprolol XL (24 HR) Succ 50 MG TAB.ER.24H PO SCH (08:22)
--- NOTE | 2016-12-03 08:42 | Nephrology Progress Note ---
Date of Encounter: 12/03/16 Time of Encounter: 08:40 - Assessment and Plan (1) Acute kidney injury Current Visit: Yes Status: Acute Patient continues to slowly improve from his acute kidney injury. For renal perspective does not require dialysis. The family states the patient is anxious to go home. From a renal standpoint he could certainly be followed as an outpatient. His blood pressure remains elevated. I am going to start him on some amlodipine. (2) Lung cancer Current Visit: Yes Status: Acute Qualifiers: Laterality: left Lung location: unspecified part of lung Qualified Code(s ): C34.92 - Malignant neoplasm of unspecified part of left bronchus or lung Subjective Interval history: Events of yesterday noted. Patient apparently became more short of breath. He did receive Lasix with some improvement in his symptoms. CT scan findings noted. Main finding is that of lung cancer. From a renal perspective he continues to improve on a daily basis LB at a slow rate. Creatinine is down to 4.90 today. Urine output yesterday was recorded as 2.6 L. The patient appears to be less short of breath today. Objective - Vital Signs Vital signs: Vital Signs Temp Pulse Resp BP Pulse Ox 12/03/16 07:45 98.9 F 103 19 144/90 100 12/03/16 04:40 98 F 109 19 164/99 98 12/03/16 01:37 99.5 F 110 20 159/101 95 12/02/16 17:06 98.5 F 100 18 155/100 94 12/02/16 11:29 98.7 F 116 152/98 89 12/02/16 09:07 119 Intake and Output 12/02/16 12/03/16 12/03/16 23:59 07:59 15:59 Intake Total 1000 / 1000 200 / 200 Output Total 1100 / 1100 1475 / 1475 Balance -100 / -100 -1275 / -1275 Intake: Oral 1000 / 1000 200 / 200 Output: Urine 1100 / 1100 1475 / 1475 Other: # Voids 2 Blood Glucose* 112 111 - General Appearance Exam: Patient is alert. He is in no acute distress. Lungs coarse breath sounds and rhonchi. Heart regular rate and rhythm. Abdomen is benign. There is no lower extremity swelling. - Lab 12/03/16 05:01 12/03/16 05:01 Most recent lab results ABG pH 7.44 pH Units (7.32-7.45) 11/19/16 23:45 ABG pCO2 46 mmHg (35-45) H 11/19/16 23:45 ABG pO2 62 mmHg (85-104) L 11/19/16 23:45 ABG HCO3 31.2 mEQ/L (21-27) H 11/19/16 23:45 ABG O2 Saturation 92 % (95-98) L 11/19/16 23:45 Calcium 10.3 mg/dL (8.6-10.8) 12/03/16 05:01 Phosphorus 6.5 mg/dL (2.3-4.7) H 11/29/16 08:20 Magnesium 1.1 mg/dL (1.6-2.6) L 11/20/16 04:43 Consult Discharge Plan - Plan Referrals: Shabana Llamas DO [Primary Care Provider] - 12/11/16 10:20 am
--- NOTE | 2016-12-03 09:32 | Palliative Progress Note ---
Date of Encounter: 12/03/16 Time of Encounter: 09:41 - Assessment and plan (1) Cancer associated pain Current Visit: Yes Status: Acute Assessment and plan: Mr. Bliss has used 3 doses of oxycodone in the past 24 hours with one dose of IV Fentanyl. Will change interval to every 3 hours as needed and continue to monitor. (2) Sepsis Current Visit: Yes Status: Acute Qualifiers: Sepsis type: sepsis due to unspecified organism Qualified Code(s): A41.9 - Sepsis, unspecified organism (3) HCAP (healthcare-associated pneumonia) Current Visit: Yes Status: Acute Assessment and plan: Infectious disease following (4) Acute kidney injury Current Visit: Yes Status: Acute Assessment and plan: Nephrology following. (5) Counseling regarding advanced directives and goals of care Current Visit: Yes Status: Acute Assessment and plan: Mr. Bliss is currently planning to return home with home health services. access services representative following for discharge needs. Will need oncology follow up at some point. Mr. Bliss is interested in continuing antineoplastic treatments. (6) Therapeutic opioid induced constipation Current Visit: Yes Status: Acute Assessment and plan: Last documented BM was on 12/01/16. Mr. Bliss continues to take the Senna 2 tablets BID. - Time Spent With Patient Total time spent is greater than 50% in coordination of care (as documented) at patient's floor/unit and/or counseling patient: - Subjective Interval history: Mr. Bliss is lying in bed with family sleeping at bedside. Will return later today for further discussion. Upon follow-up discussion with Mr. Bliss at 1:15, he was awake/alert/oriented. He reports pain is "tolerable". He reports adequate pain control with current dose of oxycodone. He has little recollection of the past 4 days. - Constitutional Vitals: Abnormal lab results RBC 2.97 M/mcL (4.19-5.50) L 12/03/16 05:01 Hgb 8.7 g/dL (12.9-16.9) L 12/03/16 05:01 Hct 27.5 % (37.5-50.1) L 12/03/16 05:01 Monocytes # 1.5 K/mcL (0.0-1.3) H 12/03/16 05:01 PT 14.1 Seconds (9.4-12.1) H 11/20/16 00:10 APTT 24.9 Seconds (26.0-36.0) L 11/20/16 00:10 ABG pCO2 46 mmHg (35-45) H 11/19/16 23:45 ABG pO2 62 mmHg (85-104) L 11/19/16 23:45 ABG HCO3 31.2 mEQ/L (21-27) H 11/19/16 23:45 ABG Total CO2 32.6 mEq/L (20-26) H 11/19/16 23:45 ABG O2 Saturation 92 % (95-98) L 11/19/16 23:45 ABG Base Excess 6.1 mEq/L (-2.0 to 3.0) H 11/19/16 23:45 Carbon Dioxide 31 mEq/L (19-29) H 12/03/16 05:01 BUN 35 mg/dL (8-26) H 12/03/16 05:01 Creatinine 4.90 mg/dL (0.72-1.25) H 12/03/16 05:01 Est GFR ( Amer) 15 (> 60) L 12/03/16 05:01 Est GFR (Non-Af Amer) 12 (> 60) L 12/03/16 05:01 Glucose 135 mg/dL (70-99) H 12/03/16 05:01 POC Glucose 112 (58-89) H 12/02/16 20:05 Calculated Osmolality 310 (280-300) H 12/03/16 05:01 Phosphorus 6.5 mg/dL (2.3-4.7) H 11/29/16 08:20 Magnesium 1.1 mg/dL (1.6-2.6) L 11/20/16 04:43 Iron 14 mcg/dL (65-175) L 11/25/16 09:45 % Saturation 10 % (20-55) L 11/25/16 09:45 Transferrin 103 mg/dL (174-364) L 11/25/16 09:45 Troponin I 0.05 ng/mL (0-0.03) H* 11/20/16 16:26 Albumin 2.1 g/dL (3.5-5.0) L 12/03/16 05:01 Globulin 4.1 g/dL (2.4-3.5) H 12/03/16 05:01 Albumin/Globulin Ratio 0.5 (1.1-2.2) L 12/03/16 05:01 Amylase 18 Units/L (25-125) L 11/25/16 16:04 Vitamin B12 865 pg/mL (213-816) H 11/25/16 09:45 Procalcitonin 0.87 ng/mL (<=0.10) H 11/25/16 16:04 Vancomycin Trough 71.6 mcg/mL (10-20) H* 11/24/16 03:25 Exam: 56 year old male patient, alert/oriented, cooperative with exam and conversation - Eye Eye exam: Present: EOMI, PERRL - ENT ENT exam: Present: mucous membranes moist - Respiratory Respiratory exam: Present: rhonchi. Absent: accessory muscle use, rales, respiratory distress, wheezes, tachypnea - Cardiovascular Cardiovascular exam: Present: RRR - GI/Abdominal GI/Abdominal exam: Present: soft. Absent: distended, firm, guarding, tenderness - Extremities Exam Extremities exam: Absent: pedal edema - Neurological Exam Neurological exam: Present: alert, oriented X3, no focal deficits, strengths equal and symetr throughout - Psychiatric Psychiatric exam: Absent: agitated, anxious - Skin Skin exam: Present: dry, normal color, warm Palliative Quality Palliative Quality: Screen for Code Status: NA, Screen for Goals of Care: NA, Screen for Pain: Yes, If Pain Regimen Started, Initiate Bowel Regimen: Yes, Screen for Nausea/Vomitting: Yes Code Status: 11/20/16 03:31 Resuscitation Status: Active [RES] Routine Comment: Resuscitation Status: Full Code Resuscitation Status: Active [RES] Routine Comment: Resuscitation Status: DNR-Comfort Care-Arrest - Labs CBC & Chem 7: 12/03/16 05:01 12/03/16 05:01 Labs: Laboratory Results - last 24 hr 12/02/16 12/02/16 12/02/16 05:37 11:33 16:04 WBC RBC Hgb Hct MCV MCH MCHC RDW Plt Count MPV Immature Gran % Seg Neutrophils % Lymphocytes % Monocytes % Eosinophils % Basophils % Neutrophils # Lymphocytes # Monocytes # Eosinophils # Basophils # Sodium Potassium Chloride Carbon Dioxide BUN Creatinine Est GFR ( Amer) Est GFR (Non-Af Amer) BUN/Creatinine Ratio Glucose POC Glucose 77 72 Calculated Osmolality Calcium Total Bilirubin AST ALT Alkaline Phosphatase Serum Total Protein Albumin Globulin Albumin/Globulin Ratio Random Vancomycin 14.2 12/02/16 12/02/16 12/03/16 17:06 20:05 05:01 WBC RBC Hgb Hct MCV MCH MCHC RDW Plt Count MPV Immature Gran % Seg Neutrophils % Lymphocytes % Monocytes % Eosinophils % Basophils % Neutrophils # Lymphocytes # Monocytes # Eosinophils # Basophils # Sodium 145 Potassium 3.5 Chloride 101 Carbon Dioxide 31 H BUN 35 H Creatinine 4.90 H Est GFR ( Amer) 15 L Est GFR (Non-Af Amer) 12 L BUN/Creatinine Ratio 7 Glucose 135 H POC Glucose 93 H 112 H Calculated Osmolality 310 H Calcium 10.3 Total Bilirubin 0.2 AST 14 ALT 10 Alkaline Phosphatase 96 Serum Total Protein 6.2 Albumin 2.1 L Globulin 4.1 H Albumin/Globulin Ratio 0.5 L Random Vancomycin 12/03/16 05:01 WBC 10.8 RBC 2.97 L Hgb 8.7 L Hct 27.5 L MCV 92.6 MCH 29.3 MCHC 31.6 RDW 14.2 Plt Count 292 MPV 10.1 Immature Gran % 1.1 Seg Neutrophils % 70.1 Lymphocytes % 13.8 Monocytes % 13.4 Eosinophils % 1.4 Basophils % 0.2 Neutrophils # 7.6 Lymphocytes # 1.5 Monocytes # 1.5 H Eosinophils # 0.2 Basophils # 0.0 Sodium Potassium Chloride Carbon Dioxide BUN Creatinine Est GFR ( Amer) Est GFR (Non-Af Amer) BUN/Creatinine Ratio Glucose POC Glucose Calculated Osmolality Calcium Total Bilirubin AST ALT Alkaline Phosphatase Serum Total Protein Albumin Globulin Albumin/Globulin Ratio Random Vancomycin - Impressions Impressions Abdomen/Pelvis CT 12/02/16 15:42 IMPRESSION: 1. Left hilar mass appears slightly larger than on the prior study. This causes obstruction of the left upper lobe bronchus and narrowing of the lingular bronchus. Airspace disease in the left upper lobe and lingula most likely represents postobstructive pneumonia. Increased interstitial markings in the left upper lobe and lingula and to a lesser degree the left lower lobe likely represents lymphangitic tumor infiltration or hilar lymph node obstruction 2. No significant change in mediastinal lymph nodes and right lower lobe nodules 3. Interval increase in left pleural effusion 4. Increase in size of bilateral adrenal masses, with slight increase in size of retroperitoneal lymph nodes 5. Skeletal metastatic disease stable to slightly worsened D/ / Dallas Hawk MD / Dallas Hawk MD Interpreting Provider: Dallas Hawk MD Chest CT 12/02/16 15:42 IMPRESSION: 1. Left hilar mass appears slightly larger than on the prior study. This causes obstruction of the left upper lobe bronchus and narrowing of the lingular bronchus. Airspace disease in the left upper lobe and lingula most likely represents postobstructive pneumonia. Increased interstitial markings in the left upper lobe and lingula and to a lesser degree the left lower lobe likely represents lymphangitic tumor infiltration or hilar lymph node obstruction 2. No significant change in mediastinal lymph nodes and right lower lobe nodules 3. Interval increase in left pleural effusion 4. Increase in size of bilateral adrenal masses, with slight increase in size of retroperitoneal lymph nodes 5. Skeletal metastatic disease stable to slightly worsened D/ / Dallas Hawk MD / Dallas Hawk MD Interpreting Provider: Dallas Hawk MD - ABG Interpretation ABG results: ABG ABG pH 7.44 pH Units (7.32-7.45) 11/19/16 23:45 ABG pCO2 46 mmHg (35-45) H 11/19/16 23:45 ABG pO2 62 mmHg (85-104) L 11/19/16 23:45 ABG O2 Saturation 92 % (95-98) L 11/19/16 23:45 PT/INR, D-dimer PT 14.1 Seconds (9.4-12.1) H 11/20/16 00:10 Consult Discharge Plan - Plan Referrals: Shabana Llamas DO [Primary Care Provider] - 12/11/16 10:20 am
[2016-12-03] MEDS: *HR* OxyCODONE Immed Rel 5 MG TABLET PO PRN (10:40)
[2016-12-03] MEDS: amLODIPine 5 MG TABLET PO SCH ×2 (10:41→20:24)
[2016-12-03] MEDS ORDERED: Ipratropium/Albuterol Neb 3 ML IH PRN (10:43)
--- NOTE | 2016-12-03 14:03 | Infectious Disease Progress No ---
Date of Encounter: 12/03/16 Time of Encounter: 13:57 - Assessment and Plan (1) Sepsis Current Visit: Yes Status: Acute The patient had three SIRS criteria on admission (leukocytosis, tachycardia, and fever) on admission. He continues to have tachycardia. He has been afebrile x 24 hours. Likely secondary to post-obstructive PNA. Procalcitonin elevated at 0.87. Blood cultures drawn 11/20/16 x 2 sets, 11/23/16 x 2 sets, and 11/25/16 x 2 sets are negative. Repeat blood cultures x 3 sets drawn 12/02/16 are pending. Qualifiers: Sepsis type: sepsis due to unspecified organism Qualified Code(s): A41.9 - Sepsis, unspecified organism (2) Pneumonia Current Visit: Yes Status: Acute Causative organism unclear. CT of the chest 11/25/16 shows unchanged mass-like opacity in the left hilar region with superimposed left upper lobe consolidation. 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 Repeat CT scan of the chest 12/02/16 shows that the left hilar mass appears slightly larger than on the previous study. According to the radiologist, this causes obstruction of the left upper lobe bronchus and narrowing of the lingular bronchus. Airspace disease in the left upper lobe and lingula most likely represent postobstructive pneumonia. There is also increased interstitial markings in the left upper lobe and lingula and to a lesser degree of the left lower lobe likely representing lymphangitic tumor infiltration or hilar lymph node obstruction. May need to consider pulmonology consult. Not sure if the patient would be a good candidate for bronchoscopy or not. Continue Levaquin 500mg IV Q48H. Qualifiers: Pneumonia type: due to unspecified organism Laterality: left Lung location: upper lobe of lung Qualified Code(s): J18.1 - Lobar pneumonia, unspecified organism (3) Acute kidney injury Current Visit: Yes Status: Acute Likely secondary to vanc toxicity. Serum creatinine stable. Nephrology has been consulted and following. Continue to trend. Avoid nephrotoxins as able and dose-adjust antibiotics. (4) Vancomycin poisoning Current Visit: Yes Status: Acute Random vanc level 14.2. Qualifiers: Encounter type: initial encounter Injury intent: accidental or unintentional Qualified Code(s): T36.8X1A - Poisoning by other systemic antibiotics, accidental (unintentional), initial encounter (5) Abdominal pain Current Visit: Yes Status: Acute Etiology not clear. Lipase/amylase/LFT's WNL. CT abdomen without acute infectious process x 2. Pain management per the primary and palliative care teams. Qualifiers: Abdominal location: epigastric Qualified Code(s): R10.13 - Epigastric pain (6) CVA (cerebral vascular accident) Current Visit: No Status: Chronic Qualifiers: CVA mechanism: unspecified Qualified Code(s): I63.9 - Cerebral infarction, unspecified (7) Lung cancer Current Visit: Yes Status: Acute Diagnosed 3 months ago. First chemotherapy session was about 09/24/16. Appears to be getting worse with metastases. Hem/Onc following. Palliative care has been consulted. Qualifiers: Laterality: left Lung location: unspecified part of lung Qualified Code(s ): C34.92 - Malignant neoplasm of unspecified part of left bronchus or lung (8) Cancer associated pain Current Visit: Yes Status: Chronic Palliative care consulted. - Subjective Interval history: Patient seen and examined. No acute events noted overnight. Patient more alert and comfortable this morning than when I saw him yesterday. States that overall he feels better this morning. Denies fevers or chills. Denies chest pain, but reports continued shortness of breath and cough productive of clear and green/ yellow sputum. Continues to complain of left sided abdominal pain, but denies nausea, vomiting, or diarrhea. States he is unsure when his last BM was. He denies urinary complaints. Infect Dis PN-Objective Data - Labs CBC & Chem 7: 12/03/16 05:01 12/04/16 03:07 Labs: Laboratory Results - last 24 hr 12/02/16 12/02/16 12/02/16 05:37 11:33 16:04 WBC RBC Hgb Hct MCV MCH MCHC RDW Plt Count MPV Immature Gran % Seg Neutrophils % Lymphocytes % Monocytes % Eosinophils % Basophils % Neutrophils # Lymphocytes # Monocytes # Eosinophils # Basophils # Sodium Potassium Chloride Carbon Dioxide BUN Creatinine Est GFR ( Amer) Est GFR (Non-Af Amer) BUN/Creatinine Ratio Glucose POC Glucose 77 72 Calculated Osmolality Calcium Total Bilirubin AST ALT Alkaline Phosphatase Serum Total Protein Albumin Globulin Albumin/Globulin Ratio Random Vancomycin 14.2 12/02/16 12/02/16 12/03/16 17:06 20:05 05:01 WBC RBC Hgb Hct MCV MCH MCHC RDW Plt Count MPV Immature Gran % Seg Neutrophils % Lymphocytes % Monocytes % Eosinophils % Basophils % Neutrophils # Lymphocytes # Monocytes # Eosinophils # Basophils # Sodium 145 Potassium 3.5 Chloride 101 Carbon Dioxide 31 H BUN 35 H Creatinine 4.90 H Est GFR ( Amer) 15 L Est GFR (Non-Af Amer) 12 L BUN/Creatinine Ratio 7 Glucose 135 H POC Glucose 93 H 112 H Calculated Osmolality 310 H Calcium 10.3 Total Bilirubin 0.2 AST 14 ALT 10 Alkaline Phosphatase 96 Serum Total Protein 6.2 Albumin 2.1 L Globulin 4.1 H Albumin/Globulin Ratio 0.5 L Random Vancomycin 12/03/16 05:01 WBC 10.8 RBC 2.97 L Hgb 8.7 L Hct 27.5 L MCV 92.6 MCH 29.3 MCHC 31.6 RDW 14.2 Plt Count 292 MPV 10.1 Immature Gran % 1.1 Seg Neutrophils % 70.1 Lymphocytes % 13.8 Monocytes % 13.4 Eosinophils % 1.4 Basophils % 0.2 Neutrophils # 7.6 Lymphocytes # 1.5 Monocytes # 1.5 H Eosinophils # 0.2 Basophils # 0.0 Sodium Potassium Chloride Carbon Dioxide BUN Creatinine Est GFR ( Amer) Est GFR (Non-Af Amer) BUN/Creatinine Ratio Glucose POC Glucose Calculated Osmolality Calcium Total Bilirubin AST ALT Alkaline Phosphatase Serum Total Protein Albumin Globulin Albumin/Globulin Ratio Random Vancomycin Cultures: Cultures 12/03/16 08:00 Sputum Culture - Preliminary Sputum 11/25/16 17:06 Blood Culture - Final Peripheral Venipuncture No growth. 11/25/16 17:06 Blood Culture - Final Peripheral Venipuncture No growth. 11/23/16 08:30 Blood Culture - Final Peripheral Venipuncture No growth. 11/23/16 08:39 Blood Culture - Final Peripheral Venipuncture No growth. 11/25/16 19:05 Legionella Antigen - Final Urine,Clean Catch 11/20/16 15:00 Sputum Culture - Final Sputum Serology 11/25/16 Range/Units 11:30 Chlamy pneumoniae PCR Not Detected (Not Detect) Adenovirus (PCR) Not Detected (Not Detect) B. pertussis DNA (PCR) Not Detected (Not Detect) Coronavirus OC43 (PCR) Not Detected (Not Detect) Coronavirus HKU1 (PCR) Not Detected (Not Detect) Coronavirus 229E (PCR) Not Detected (Not Detect) Coronavirus NL63 (PCR) Not Detected (Not Detect) Human Metapneumovir PCR Not Detected (Not Detect) Influenza A (H1) PCR Not Detected (Not Detect) Influ A (H1N1/09) PCR Not Detected (Not Detect) Influenza A (H3) PCR Not Detected (Not Detect) Influenza A Untype (PCR) Not Detected (Not Detect) Influenza Type B (PCR) Not Detected (Not Detect) M.pneumoniae DNA (PCR) Not Detected (Not Detect) Parainfluenza 1 (PCR) Not Detected (Not Detect) Parainfluenza 2 (PCR) Not Detected (Not Detect) Parainfluenza 3 (PCR) Not Detected (Not Detect) Parainfluenza 4 (PCR) Not Detected (Not Detect) RSV (PCR) Not Detected (Not Detect) Entero/Rhino (PCR) Not Detected (Not Detect) - Impressions Impressions Abdomen/Pelvis CT 12/02/16 15:42 IMPRESSION: 1. Left hilar mass appears slightly larger than on the prior study. This causes obstruction of the left upper lobe bronchus and narrowing of the lingular bronchus. Airspace disease in the left upper lobe and lingula most likely represents postobstructive pneumonia. Increased interstitial markings in the left upper lobe and lingula and to a lesser degree the left lower lobe likely represents lymphangitic tumor infiltration or hilar lymph node obstruction 2. No significant change in mediastinal lymph nodes and right lower lobe nodules 3. Interval increase in left pleural effusion 4. Increase in size of bilateral adrenal masses, with slight increase in size of retroperitoneal lymph nodes 5. Skeletal metastatic disease stable to slightly worsened D/ / Dallas Hawk MD / Dallas Hawk MD Interpreting Provider: Dallas Hawk MD Chest CT 12/02/16 15:42 IMPRESSION: 1. Left hilar mass appears slightly larger than on the prior study. This causes obstruction of the left upper lobe bronchus and narrowing of the lingular bronchus. Airspace disease in the left upper lobe and lingula most likely represents postobstructive pneumonia. Increased interstitial markings in the left upper lobe and lingula and to a lesser degree the left lower lobe likely represents lymphangitic tumor infiltration or hilar lymph node obstruction 2. No significant change in mediastinal lymph nodes and right lower lobe nodules 3. Interval increase in left pleural effusion 4. Increase in size of bilateral adrenal masses, with slight increase in size of retroperitoneal lymph nodes 5. Skeletal metastatic disease stable to slightly worsened D/ / Dallas Hawk MD / Dallas Hawk MD Interpreting Provider: Dallas Hawk MD Exam - Constitutional Vitals: Temp Pulse Resp BP Pulse Ox 98.6 F 98 18 127/83 100 12/03/16 11:38 12/03/16 12:13 12/03/16 11:38 12/03/16 11:38 12/03/16 11:38 General appearance: average body habitus, cooperative, no acute distress - Head Head exam: Present: atraumatic, normal inspection, normocephalic - Eye Eye exam: Present: EOMI, normal appearance, PERRL Pupils: Present: normal accommodation - ENT ENT exam: Present: mucous membranes moist - Neck Neck exam: Present: normal inspection - Respiratory Respiratory exam: Present: decreased breath sounds, CTAB. Absent: rales, respiratory distress, rhonchi, wheezes - Cardiovascular Cardiovascular exam: Present: +S1, +S2, tachycardia. Absent: irregular rhythm - GI/Abdominal GI/Abdominal exam: Present: normal bowel sounds, soft. Absent: distended, tenderness - Extremities Exam Extremities exam: Present: normal inspection. Absent: joint swelling, pedal edema, tenderness - Neurological Exam Neurological exam: Present: alert, oriented X3, no focal deficits - Psychiatric Psychiatric exam: Present: normal affect, normal mood - Skin Skin exam: Present: dry, intact, normal color, warm Consult Discharge Plan - Plan Referrals: Alexander Cox DO [Non-Partnered Physician] - (TRIED TO CALL AND MAKE AN APPOINTMENT THE OFFICE IS CLOSED ON FRIDAYS. ) Shabana Llamas DO [Primary Care Provider] - 12/11/16 10:20 am Gerardo Kendrick MD [Partnered Physician] - 12/08/16 9:30 am - Attending Attestation I examined this patient and my medical decision-making was reviewed with the PARTNER MARKETING MANAGER/PA/Advanced Practice Nurse/Resident Physician. I agree with the documented findings, disposition and treatment plan as described except to the extent set forth below.
--- NOTE | 2016-12-03 17:45 | Internal Med Progress Note ---
Date of Encounter: 12/03/16 Time of Encounter: 17:42 - Assessment and plan (1) Sepsis Current Visit: Yes Status: Acute Qualifiers: Sepsis type: sepsis due to unspecified organism Qualified Code(s): A41.9 - Sepsis, unspecified organism (2) Acute respiratory failure Current Visit: Yes Status: Acute Qualifiers: Respiratory failure complication: hypoxia Qualified Code(s): J96.01 - Acute respiratory failure with hypoxia (3) Cancer associated pain Current Visit: Yes Status: Acute (4) Tobacco abuse Current Visit: Yes Status: Chronic (5) HCAP (healthcare-associated pneumonia) Current Visit: Yes Status: Acute (6) Elevated troponin Current Visit: Yes Status: Acute (7) COPD exacerbation Current Visit: No Status: Acute (8) DVT prophylaxis Current Visit: No Status: Acute (9) Hypomagnesemia Current Visit: Yes Status: Acute (10) Acute kidney injury Current Visit: Yes Status: Acute (11) Congestive heart failure Current Visit: Yes Status: Acute Qualifiers: Qualified Code(s): I50.9 - Heart failure, unspecified - Subjective Interval history: Patient is a 56-year-old male with metastatic lung cancer who follows with Dr. Kendrick. Patient presented [facility] ED one day ago ith sepsis secondary to pneumonia. Patient had a CT chest which lung cancer. He had a temperature of 101.3 heart rate of 140,22, leukocytosis with WBC of 17. Patient did receive vancomycin 1, Zosyn 3.375 mg, and Levaquin 750 mg in the ED prior to admission to the ICU. He was continued on Vancomycin 1250mg q12hr, Zosyn 3.375mg q8hr, Levaquin 750 mg daily. Patient was previously hospitalized on 11/04/16 for sepsis secondary to pneumonia. He was discharged on 11/07/16. The patient was seen. He is sitting in bed eating his lunch and does not seem to be uncomfortable. Troponin elevated and will be repeated as well as CBC and CMP. Clinically he denies any chest pain. 11/21 breathing better and has been transferred out of ICU to stepdown unit. Still needs oxygen. Breath sounds still shallow. Continue current treatment as overall breath sounds are improving. Magnesium was low therefore supplemented. On admission patient troponin were mildly elevated of significance. An echocardiogram was done which showed normal cardiac ejection fraction of 55% no wall motion abnormality in LV with a good systolic function mild diastolic dysfunction noted valvular no significant valvular abnormality. 11/22 breathing has started improving. From tomorrow we may start tapering steroids. No other complaint. 11/23 this morning temperature 101.5. Ordered blood culture 2 stat repeat CBC CMP, and chest x-ray. On November 20 Levaquin was stopped by pulmonology. Blood and sputum cultures are negative to this date. Currently patient is on IV vancomycin and Zosyn. Echocardiogram reported yesterday showing ejection fraction in the range of 65-70% no significant valvular abnormality or LV dysfunction or vegetation. It was a transthoracic echo. 12/01 patient care was taken over from hospitalist team . It was noted the patient developed acute renal failure due to perhaps a combination of sepsis and vancomycin toxicity. Nephrology is case. Ultrasound did not show any obstruction. Hayes is still running low-grade temperature. Renal function has started improving and now creatinine is 5.23. 12/02 this morning patient was noted to be quite short of breath unable to lay flat and his JVD was noted to be elevated. We stopped the IV fluid give him a dose of IV Lasix and reexamine in in a few hours his condition improved quite a bit. Unfortunately he did not safe his urine. In any case he seems to be much better though is still high known to JVD longterm down there for another dose of IV Lasix given. His renal functions are not improving. Case discussed with infectious disease was concerned that despite change in antibiotics patient fever has returned. I have suggested if he stop all antibiotics recultured him and see what we find out because I am concerned that while she is in hospital for such a long period of time if he is developing any other source or if he has postobstructive pneumonia in which case probably Diego will be warranted. At this time his CBC CMP will be repeated. Continue current treatment. Renal function are not improving much. Discharge planning discussed with the team patient and his family in presence of patient. I think he will be a single home candidate though at this time he wants to go home. Not sure about the nature of his heart failure but I suspect fluid overload due to continuous infusion and poor renal function. Echocardiogram done during this admission showed normal cardiac ejection fraction with diastolic dysfunction 12/03 appears better. Ambulating. Eager to go home. Infectious disease has repeated blood cultures 3 which are pending to the state but previous blood cultures were all negative. Patient has recurrent low-grade temperature for the last 24 hours he is afebrile. A fresh CT chest showed left hilar mass has increased in size. Infectious disease is requesting a [facility] and I informed the business machine mechanic on-call. We will keep patient nothing by mouth tonight. In other issue is his discharge and palliative care will try to reach oncologist to get an idea what his long-term prognosis of this patient. Once these issues are resolved he can be discharged as his creatinine has started coming down and nephrology is comfortable in sending him home. - Constitutional Vitals: Temp Pulse Resp BP Pulse Ox 99.1 F 98 20 162/100 100 12/03/16 16:39 12/03/16 16:39 12/03/16 16:39 12/03/16 16:39 12/03/16 16:39 General appearance: Present: A&O X 3, underweight, answers questions appropriately - Head Head exam: Present: atraumatic, normocephalic - Eye Eye exam: Present: PERRL, conjuntiva pink, sclera anicteric Pupils: Present: PERRL - Neck Neck exam general surgery: Present: supple, trachea midline. Absent: lymphadenopathy - Respiratory Respiratory exam: Present: CTAB. Absent: accessory muscle use, rales, rhonchi, wheezes - Cardiovascular Cardiovascular exam: Present: RRR, +S1, +S2. Absent: diastolic murmur, gallop, rubs, systolic murmur - GI/Abdominal GI/Abdominal exam: Present: normal bowel sounds, soft, no peritoneal signs. Absent: distended, tenderness - Extremities Exam Extremities exam: Present: warm, radial pulses palpable and symetrical. Absent : calf tenderness, cyanotic, pedal edema - Neurological Exam Neurological exam: Present: CN II-XII intact, oriented X3, no focal deficits. Absent: pronater drift, facial droop, speech deficit - Skin Skin exam: Present: dry, intact Internal Medicine: Result - Labs CBC & Chem 7: 12/03/16 05:01 12/03/16 05:01 Labs: Short CBC 12/03/16 Range/Units 05:01 WBC 10.8 (4.3-11.1) K/mcL Hgb 8.7 L (12.9-16.9) g/dL Hct 27.5 L (37.5-50.1) % Plt Count 292 (140-400) K/mcL Neutrophils # 7.6 (1.6-8.9) K/mcL BMP 12/03/16 05:01 Sodium 145 Potassium 3.5 Chloride 101 Carbon Dioxide 31 H BUN 35 H Creatinine 4.90 H Glucose 135 H Calcium 10.3 Liver Function 12/03/16 Range/Units 05:01 Total Bilirubin 0.2 (0.2-1.2) mg/dL AST 14 (5-34) Units/L ALT 10 (0-55) Units/L Alkaline Phosphatase 96 (38-126) Units/L Albumin 2.1 L (3.5-5.0) g/dL - ABG Interpretation ABG results: ABG ABG pH 7.44 pH Units (7.32-7.45) 11/19/16 23:45 ABG pCO2 46 mmHg (35-45) H 11/19/16 23:45 ABG pO2 62 mmHg (85-104) L 11/19/16 23:45 ABG O2 Saturation 92 % (95-98) L 11/19/16 23:45 PT/INR, D-dimer PT 14.1 Seconds (9.4-12.1) H 11/20/16 00:10 - Impressions Impressions Abdomen/Pelvis CT 12/02/16 15:42 IMPRESSION: 1. Left hilar mass appears slightly larger than on the prior study. This causes obstruction of the left upper lobe bronchus and narrowing of the lingular bronchus. Airspace disease in the left upper lobe and lingula most likely represents postobstructive pneumonia. Increased interstitial markings in the left upper lobe and lingula and to a lesser degree the left lower lobe likely represents lymphangitic tumor infiltration or hilar lymph node obstruction 2. No significant change in mediastinal lymph nodes and right lower lobe nodules 3. Interval increase in left pleural effusion 4. Increase in size of bilateral adrenal masses, with slight increase in size of retroperitoneal lymph nodes 5. Skeletal metastatic disease stable to slightly worsened D/ / Dallas Hawk MD / Dallas Hawk MD Interpreting Provider: Dallas Hawk MD Chest CT 12/02/16 15:42 IMPRESSION: 1. Left hilar mass appears slightly larger than on the prior study. This causes obstruction of the left upper lobe bronchus and narrowing of the lingular bronchus. Airspace disease in the left upper lobe and lingula most likely represents postobstructive pneumonia. Increased interstitial markings in the left upper lobe and lingula and to a lesser degree the left lower lobe likely represents lymphangitic tumor infiltration or hilar lymph node obstruction 2. No significant change in mediastinal lymph nodes and right lower lobe nodules 3. Interval increase in left pleural effusion 4. Increase in size of bilateral adrenal masses, with slight increase in size of retroperitoneal lymph nodes 5. Skeletal metastatic disease stable to slightly worsened D/ / Dallas Hawk MD / Dallas Hawk MD Interpreting Provider: Dallas Hawk MD Consult Discharge Plan - Plan Referrals: Shabana Llamas DO [Primary Care Provider] - 12/11/16 10:20 am
[2016-12-04] MEDS: *HR* OxyCODONE Immed Rel 5 MG TABLET PO PRN ×2 (02:20→08:09)
[2016-12-04 04:25] LABS: Albumin 2.2 g/dL (3.5-5.0); Albumin/Globulin Ratio 0.5 (1.1-2.2); Bilirubin,Total 0.3 mg/dL (0.2-1.2); Calcium 10.4 mg/dL (8.6-10.8); Globulin 4.1 g/dL (2.4-3.5); Potassium 3.2 mEq/L (3.5-4.5); Total Protein 6.3 g/dL (6.0-8.3)
[2016-12-04] MEDS: Folic Acid 1 MG TABLET PO SCH (08:09)
[2016-12-04] MEDS: lamoTRIgine 25 MG TABLET PO SCH ×2 (08:09→20:06)
[2016-12-04] MEDS: Sennosides/Docusate Sodium TABLET PO SCH ×2 (08:10→20:05)
[2016-12-04] MEDS: Aspirin 81 MG TAB.CHEW PO SCH (08:11)
[2016-12-04] MEDS: *HR* Heparin 5,000 UNIT/ML VIAL SQ SCH ×2 (08:11→15:26)
[2016-12-04] MEDS: Metoprolol XL (24 HR) Succ 50 MG TAB.ER.24H PO SCH (08:11)
[2016-12-04] MEDS: amLODIPine 5 MG TABLET PO SCH ×2 (08:11→20:06)
[2016-12-04] MEDS: Nicotine 21 MG PATCH.TD24 TD SCH (08:12)
--- NOTE | 2016-12-04 10:07 | Nephrology Progress Note ---
Date of Encounter: 12/04/16 Time of Encounter: 09:45 - Assessment and Plan (1) Acute kidney injury Current Visit: Yes Status: Acute ARMAAN in setting of Vanco toxicity, sepsis, PNA with GI losses and chronic NSAID use contributing. Renal US shows no underlying obstructive uropathy. Renal fct continues to improve slowly, ceat 4.13. Documented urine output 2200cc. K 3.2, Will give Kdur 40 meq x 1. Avoid nephrotoxins. Will continue to monitor. Subjective Interval history: PT in room, getting up to chair. No new complaints. Objective - Vital Signs Vital signs: Vital Signs Temp Pulse Resp BP Pulse Ox 12/04/16 08:05 110 99 12/04/16 07:51 98.7 F 109 25 149/99 99 12/04/16 04:03 99.9 F H 111 24 137/87 96 12/04/16 03:20 109 12/03/16 23:52 99.2 F 102 22 146/97 100 12/03/16 23:25 100 12/03/16 20:37 98.9 F 98 15 151/96 99 12/03/16 20:15 104 12/03/16 16:39 99.1 F 98 20 162/100 100 12/03/16 16:20 103 12/03/16 12:13 98 12/03/16 11:38 98.6 F 93 18 127/83 100 Intake and Output 12/03/16 12/04/16 12/04/16 23:59 07:59 15:59 Intake Total 240 / 240 0 / 0 Output Total 200 / 200 705 / 705 Balance 40 / 40 -705 / -705 Intake: Oral 240 / 240 0 / 0 Output: Urine 200 / 200 705 / 705 Other: Meal Dinner Percent of Meal Consumed 0% Weight 68.9 kg 68.4 kg Blood Glucose* 121 Patient Weight 12/04/16 23:59 Weight 68.4 kg - General Appearance General appearance: Present: well-developed, well-nourished, appears started age EENT: Present: mucous membranes moist Neck: Present: no JVD Respiratory: Present: clear Cardiology: Present: no edema, regular rate, regular rhythm Gastrointestinal: Present: normoactive bowel sounds, no tenderness Integumentary: Present: warm and dry Neurologic: Present: alert and oriented x3 Psychiatric: Present: mood/affect appropriate, cooperative - Lab 12/03/16 05:01 12/04/16 03:07 Most recent lab results ABG pH 7.44 pH Units (7.32-7.45) 11/19/16 23:45 ABG pCO2 46 mmHg (35-45) H 11/19/16 23:45 ABG pO2 62 mmHg (85-104) L 11/19/16 23:45 ABG HCO3 31.2 mEQ/L (21-27) H 11/19/16 23:45 ABG O2 Saturation 92 % (95-98) L 11/19/16 23:45 Calcium 10.4 mg/dL (8.6-10.8) 12/04/16 03:07 Phosphorus 6.5 mg/dL (2.3-4.7) H 11/29/16 08:20 Magnesium 1.1 mg/dL (1.6-2.6) L 11/20/16 04:43 Consult Discharge Plan - Plan Referrals: Shabana Llamas DO [Primary Care Provider] - 12/11/16 10:20 am
--- NOTE | 2016-12-04 10:29 | Palliative Progress Note ---
Date of Encounter: 12/04/16 Time of Encounter: 09:30 - Assessment and plan (1) Cancer associated pain Current Visit: Yes Status: Acute Assessment and plan: Mr. Bliss has used 2 doses of oxycodone in the past 24 hours. Will change interval to every 3 hours as needed and continue to monitor. (2) Sepsis Current Visit: Yes Status: Acute Qualifiers: Sepsis type: sepsis due to unspecified organism Qualified Code(s): A41.9 - Sepsis, unspecified organism (3) HCAP (healthcare-associated pneumonia) Current Visit: Yes Status: Acute Assessment and plan: Infectious disease following (4) Acute kidney injury Current Visit: Yes Status: Acute Assessment and plan: Nephrology following. (5) Counseling regarding advanced directives and goals of care Current Visit: Yes Status: Acute Assessment and plan: Mr. Bliss is currently planning to return home with home health services through [facility]. creative services coordinator following for discharge needs. Will need oncology follow up at some point. Mr. Bliss is interested in continuing antineoplastic treatments. (6) Therapeutic opioid induced constipation Current Visit: Yes Status: Acute Assessment and plan: Last documented BM was on 12/01/16. Mr. Bliss continues to take the Senna 2 tablets BID. - Time Spent With Patient Total time spent is greater than 50% in coordination of care (as documented) at patient's floor/unit and/or counseling patient: - Subjective Interval history: Mr. Bliss is sitting up in bed with family at bedside. He reports pain is "better" and he took a pain pill recently. He did not have a BM yesterday, but is passing flatus today. He reports a bronch is planned for later today with pulmonology. - Constitutional Vitals: Abnormal lab results RBC 2.97 M/mcL (4.19-5.50) L 12/03/16 05:01 Hgb 8.7 g/dL (12.9-16.9) L 12/03/16 05:01 Hct 27.5 % (37.5-50.1) L 12/03/16 05:01 Monocytes # 1.5 K/mcL (0.0-1.3) H 12/03/16 05:01 PT 14.1 Seconds (9.4-12.1) H 11/20/16 00:10 APTT 24.9 Seconds (26.0-36.0) L 11/20/16 00:10 ABG pCO2 46 mmHg (35-45) H 11/19/16 23:45 ABG pO2 62 mmHg (85-104) L 11/19/16 23:45 ABG HCO3 31.2 mEQ/L (21-27) H 11/19/16 23:45 ABG Total CO2 32.6 mEq/L (20-26) H 11/19/16 23:45 ABG O2 Saturation 92 % (95-98) L 11/19/16 23:45 ABG Base Excess 6.1 mEq/L (-2.0 to 3.0) H 11/19/16 23:45 Potassium 3.2 mEq/L (3.5-4.5) L 12/04/16 03:07 Chloride 96 mEq/L (98-109) L 12/04/16 03:07 Carbon Dioxide 36 mEq/L (19-29) H 12/04/16 03:07 BUN 31 mg/dL (8-26) H 12/04/16 03:07 Creatinine 4.13 mg/dL (0.72-1.25) H 12/04/16 03:07 Est GFR ( Amer) 18 (> 60) L 12/04/16 03:07 Est GFR (Non-Af Amer) 15 (> 60) L 12/04/16 03:07 Glucose 104 mg/dL (70-99) H 12/04/16 03:07 POC Glucose 121 (58-89) H 12/03/16 20:44 Calculated Osmolality 303 (280-300) H 12/04/16 03:07 Phosphorus 6.5 mg/dL (2.3-4.7) H 11/29/16 08:20 Magnesium 1.1 mg/dL (1.6-2.6) L 11/20/16 04:43 Iron 14 mcg/dL (65-175) L 11/25/16 09:45 % Saturation 10 % (20-55) L 11/25/16 09:45 Transferrin 103 mg/dL (174-364) L 11/25/16 09:45 Troponin I 0.05 ng/mL (0-0.03) H* 11/20/16 16:26 Albumin 2.2 g/dL (3.5-5.0) L 12/04/16 03:07 Globulin 4.1 g/dL (2.4-3.5) H 12/04/16 03:07 Albumin/Globulin Ratio 0.5 (1.1-2.2) L 12/04/16 03:07 Amylase 18 Units/L (25-125) L 11/25/16 16:04 Vitamin B12 865 pg/mL (213-816) H 11/25/16 09:45 Procalcitonin 0.87 ng/mL (<=0.10) H 11/25/16 16:04 Vancomycin Trough 71.6 mcg/mL (10-20) H* 11/24/16 03:25 General appearance: Present: cooperative, no acute distress - Eye Eye exam: Present: EOMI, PERRL - Respiratory Respiratory exam: Present: rhonchi. Absent: accessory muscle use, respiratory distress, tachypnea - Expanded Respiratory Exam Location: rhonchi: Left, Upper - GI/Abdominal GI/Abdominal exam: Present: soft. Absent: distended, firm, guarding, tenderness - Extremities Exam Extremities exam: Present: normal inspection - Neurological Exam Neurological exam: Present: alert, oriented X3, no focal deficits, strengths equal and symetr throughout - Psychiatric Psychiatric exam: Absent: agitated, anxious - Skin Skin exam: Present: dry, warm Palliative Quality Palliative Quality: Screen for Code Status: NA, Screen for Goals of Care: NA, Screen for Pain: Yes, If Pain Regimen Started, Initiate Bowel Regimen: Yes, Screen for Nausea/Vomitting: Yes Code Status: 11/20/16 03:31 Resuscitation Status: Active [RES] Routine Comment: Resuscitation Status: Full Code Resuscitation Status: Active [RES] Routine Comment: Resuscitation Status: DNR-Comfort Care-Arrest - Labs CBC & Chem 7: 12/03/16 05:01 12/04/16 03:07 Labs: Laboratory Results - last 24 hr 12/03/16 12/03/16 12/03/16 07:49 11:42 16:43 Sodium Potassium Chloride Carbon Dioxide BUN Creatinine Est GFR ( Amer) Est GFR (Non-Af Amer) BUN/Creatinine Ratio Glucose POC Glucose 111 H 113 H 101 H Calculated Osmolality Calcium Total Bilirubin AST ALT Alkaline Phosphatase Serum Total Protein Albumin Globulin Albumin/Globulin Ratio 12/03/16 12/04/16 20:44 03:07 Sodium 143 Potassium 3.2 L Chloride 96 L Carbon Dioxide 36 H BUN 31 H Creatinine 4.13 H Est GFR ( Amer) 18 L Est GFR (Non-Af Amer) 15 L BUN/Creatinine Ratio 8 Glucose 104 H POC Glucose 121 H Calculated Osmolality 303 H Calcium 10.4 Total Bilirubin 0.3 AST 15 ALT 10 Alkaline Phosphatase 99 Serum Total Protein 6.3 Albumin 2.2 L Globulin 4.1 H Albumin/Globulin Ratio 0.5 L - ABG Interpretation ABG results: ABG ABG pH 7.44 pH Units (7.32-7.45) 11/19/16 23:45 ABG pCO2 46 mmHg (35-45) H 11/19/16 23:45 ABG pO2 62 mmHg (85-104) L 11/19/16 23:45 ABG O2 Saturation 92 % (95-98) L 11/19/16 23:45 PT/INR, D-dimer PT 14.1 Seconds (9.4-12.1) H 11/20/16 00:10 Consult Discharge Plan - Plan Referrals: Shabana Llamas DO [Primary Care Provider] - 12/11/16 10:20 am
--- NOTE | 2016-12-04 10:41 | Pulmonology Progress Note ---
Date of Encounter: 12/04/16 Time of Encounter: 10:39 Assessment and Plan (1) Pneumonia Current Visit: Yes Status: Acute Impression: 56-year-old gentleman unfortunately has non-small cell lung cancer ( adenocarcinoma) with distant metastases to the bone radiographically he has evidence of worsening tumor burden and left upper lobe with compression of the left mainstem which is leading to postobstructive pneumonia this appears to be worse this is correlating clinically with concern for the infectious disease team for untreated pneumonia. I spoke with the family and explained that bronchoscopy is a reasonable approach here in order to further delineate airway anatomy as well as to perform bronchoalveolar lavage for cultures. I explained that I would not be able to alleviate the obstruction on this for her seizure but could not determine if he would be a candidate for a possible interventional procedure in the future. Looking at the CT scan and images today IM dubious that he has a lesion that would be amenable to stenting and appears to be all extrinsic compression in which case the definitive treatment would be chemotherapy. Nevertheless, after discussion with the family and they are in agreement to proceed with this procedure and I feel that it could add benefit in that making diagnosis of pneumonia which would afford better treatment options which could lead to reinstitution of chemotherapy Recommendations: A bronchoscopy is recommended. The procedure , risks, benefits, complications, and expected outcomes have been reviewed. Benefits of diagnosis, as well as risks to include bleeding, infection, pneumothorax which may require surgical intervention, and in a small population. The patient is aware that sometimes test is nondiagnostic. Discussed with patient and his sister and defined POA (verbally)agrees to proceed. Recommend continuation of schedule bronchodilators; encouragingly the patient is not requiring high levels of supplemental oxygen and is not complaining of any dyspnea Continue antimicrobial therapy per infectious disease recommendations Agree with ongoing palliative care management Kidney injury being managed by nephrology service Qualifiers: Pneumonia type: due to unspecified organism Laterality: left Lung location: upper lobe of lung Qualified Code(s): J18.1 - Lobar pneumonia, unspecified organism (2) Lung cancer Current Visit: Yes Status: Acute Qualifiers: Laterality: left Lung location: unspecified part of lung Qualified Code(s ): C34.92 - Malignant neoplasm of unspecified part of left bronchus or lung (3) Counseling regarding advanced directives and goals of care Current Visit: Yes Status: Acute (4) DVT prophylaxis Current Visit: No Status: Acute Subjective Principal diagnosis: Pneumonia Interval history: Pulmonology was initially consulted on this patient on admission to the intensive care unit for severe sepsis physiology secondary to pneumonia he was successfully treated from this and was able to be discharged out of the ICU to stepdown unfortunately he has had a prolonged hospitalization complicated by recurrent infection followed by infectious disease team kidney injury and severe pain being managed by the palliative care service. His further workup of persistent leukocytosis and low-grade pyrexia repeat CT scan of the chest was obtained which was notable for increased size of left upper lobe tumor with worsening of postobstructive pneumonia Understandably the pulmonary service was consulted to reevaluate the patient for possibility of bronchoscopy to aid in diagnosis and management of this complex situation I spoke with the patient and his sister at bedside today and he was mostly just complaining of pain and really wanted to go home and they were both anxious to begin chemotherapy which is been unable to start because of poor performance status chronic clinical debility and recurrent infection Objective PUL Vital signs: Last Vital Signs Temp 98.7 F 12/04/16 07:51 Pulse 110 12/04/16 08:05 Resp 25 12/04/16 07:51 BP 149/99 12/04/16 07:51 Pulse Ox 99 12/04/16 08:05 General appearance: appears uncomfortable Eyes: nonicteric ENT: oropharynx moist Neck: supple Auscultation: bilateral: diminished breath sounds, rhonchi Cardiovascular: regular rate and rhythm normal mental status, non-focal exam mood appropriate Results - Laboratory Findings CBC and BMP: 12/03/16 05:01 12/04/16 03:07 ABG ABG pH 7.44 pH Units (7.32-7.45) 11/19/16 23:45 ABG pCO2 46 mmHg (35-45) H 11/19/16 23:45 ABG pO2 62 mmHg (85-104) L 11/19/16 23:45 ABG O2 Saturation 92 % (95-98) L 11/19/16 23:45 PT/INR, D-dimer PT 14.1 Seconds (9.4-12.1) H 11/20/16 00:10 Abnormal lab findings: Abnormal lab results RBC 2.97 M/mcL (4.19-5.50) L 12/03/16 05:01 Hgb 8.7 g/dL (12.9-16.9) L 12/03/16 05:01 Hct 27.5 % (37.5-50.1) L 12/03/16 05:01 Monocytes # 1.5 K/mcL (0.0-1.3) H 12/03/16 05:01 PT 14.1 Seconds (9.4-12.1) H 11/20/16 00:10 APTT 24.9 Seconds (26.0-36.0) L 11/20/16 00:10 ABG pCO2 46 mmHg (35-45) H 11/19/16 23:45 ABG pO2 62 mmHg (85-104) L 11/19/16 23:45 ABG HCO3 31.2 mEQ/L (21-27) H 11/19/16 23:45 ABG Total CO2 32.6 mEq/L (20-26) H 11/19/16 23:45 ABG O2 Saturation 92 % (95-98) L 11/19/16 23:45 ABG Base Excess 6.1 mEq/L (-2.0 to 3.0) H 11/19/16 23:45 Potassium 3.2 mEq/L (3.5-4.5) L 12/04/16 03:07 Chloride 96 mEq/L (98-109) L 12/04/16 03:07 Carbon Dioxide 36 mEq/L (19-29) H 12/04/16 03:07 BUN 31 mg/dL (8-26) H 12/04/16 03:07 Creatinine 4.13 mg/dL (0.72-1.25) H 12/04/16 03:07 Est GFR ( Amer) 18 (> 60) L 12/04/16 03:07 Est GFR (Non-Af Amer) 15 (> 60) L 12/04/16 03:07 Glucose 104 mg/dL (70-99) H 12/04/16 03:07 POC Glucose 121 (58-89) H 12/03/16 20:44 Calculated Osmolality 303 (280-300) H 12/04/16 03:07 Phosphorus 6.5 mg/dL (2.3-4.7) H 11/29/16 08:20 Magnesium 1.1 mg/dL (1.6-2.6) L 11/20/16 04:43 Iron 14 mcg/dL (65-175) L 11/25/16 09:45 % Saturation 10 % (20-55) L 11/25/16 09:45 Transferrin 103 mg/dL (174-364) L 11/25/16 09:45 Troponin I 0.05 ng/mL (0-0.03) H* 11/20/16 16:26 Albumin 2.2 g/dL (3.5-5.0) L 12/04/16 03:07 Globulin 4.1 g/dL (2.4-3.5) H 12/04/16 03:07 Albumin/Globulin Ratio 0.5 (1.1-2.2) L 12/04/16 03:07 Amylase 18 Units/L (25-125) L 11/25/16 16:04 Vitamin B12 865 pg/mL (213-816) H 11/25/16 09:45 Procalcitonin 0.87 ng/mL (<=0.10) H 11/25/16 16:04 Vancomycin Trough 71.6 mcg/mL (10-20) H* 11/24/16 03:25 - Microbiology Findings Microbiology Findings: Microbiology, Last 48 Hours 12/02/16 16:04 Blood Culture - Preliminary Peripheral Venipuncture No growth. 12/02/16 16:04 Blood Culture - Preliminary Peripheral Venipuncture No growth. 12/03/16 08:00 Sputum Culture - Preliminary Sputum Gram Negative Nikita - Diagnostic Findings CT scan - chest: report reviewed, image reviewed - Clinical Findings Intake & Output: Intake & Output 12/03/16 12/04/16 12/04/16 23:59 07:59 15:59 Intake Total 240 / 240 0 / 0 Output Total 200 / 200 705 / 705 Balance 40 / 40 -705 / -705 Weight 68.9 kg 68.4 kg Consult Discharge Plan - Plan Referrals: Shabana Llamas DO [Primary Care Provider] - 12/11/16 10:20 am
[2016-12-04] MEDS ORDERED: *HR* EPINEPHrine 1 MG/10 ML SYRINGE INTRATRACH PRN (10:49)
[2016-12-04] MEDS ORDERED: Albuterol 2.5 MG/3 ML NEBULIZER IH ONE (10:49)
[2016-12-04] MEDS ORDERED: *HR* Midazolam HCl 5 MG/5 ML VIAL IVP PRN (10:49)
[2016-12-04] MEDS ORDERED: Tetracaine/Benzocaine/Butamben 200MG/SPRAY (100SPY/BOT) MM ONE (10:49)
[2016-12-04] MEDS ORDERED: *HR* FentaNYL (PF) 100 MCG/2 ML VIAL IVP PRN (10:49)
--- NOTE | 2016-12-04 10:49 | Pre-Sedation Evaluation ---
Pre-sedation evaluation - Pre-sedation checklist Date of procedure: 12/04/16 Procedure: Bronchoscopy Recent Vitals: Last Vital Signs Temp 98.7 F 12/04/16 07:51 Pulse 110 12/04/16 08:05 Resp 25 12/04/16 07:51 BP 149/99 12/04/16 07:51 Pulse Ox 99 12/04/16 08:05 H&P (including ROS) documented in medical record: Yes Previous reaction to sedatives/anesthetics: No Dietary Status: NPO after Midnight Airway Assessment: Patient can open mouth completely, TMJ function normal Possible difficult airway: No ASA Classification *see protocol: CLASS IV-Severe systemic disease/constant threat to pt's life Plan of Care: Pt appropriate candidate for procedure/moderate/conscious sedation , Risks/benefits of procedure/sedation discussed w/ patient/family
--- NOTE | 2016-12-04 11:10 | Infectious Disease Progress No ---
Date of Encounter: 12/04/16 Time of Encounter: 11:08 - Assessment and Plan (1) Sepsis Current Visit: Yes Status: Acute The patient had three SIRS criteria on admission (leukocytosis, tachycardia, and fever) on admission. He continues to have tachycardia. He has been afebrile x 48 hours. Likely secondary to post-obstructive PNA. Procalcitonin elevated at 0.87. Blood cultures drawn 11/20/16 x 2 sets, 11/23/16 x 2 sets, and 11/25/16 x 2 sets are negative. Repeat blood cultures x 3 sets drawn 12/02/16 are NGTD. Qualifiers: Sepsis type: sepsis due to unspecified organism Qualified Code(s): A41.9 - Sepsis, unspecified organism (2) Pneumonia Current Visit: Yes Status: Acute Causative organism unclear. Sputum culture gram stain shows GNR. Likely post-obstructive due to large lung mass. CT of the chest 11/25/16 shows unchanged mass-like opacity in the left hilar region with superimposed left upper lobe consolidation. 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 Repeat CT scan of the chest 12/02/16 shows that the left hilar mass appears slightly larger than on the previous study. According to the radiologist, this causes obstruction of the left upper lobe bronchus and narrowing of the lingular bronchus. Airspace disease in the left upper lobe and lingula most likely represent postobstructive pneumonia. There is also increased interstitial markings in the left upper lobe and lingula and to a lesser degree of the left lower lobe likely representing lymphangitic tumor infiltration or hilar lymph node obstruction. Pulmonology is planning to bronch the patient later today. Send BAL for gram stain, culture, GMS, and AFB. Continue Levaquin 500mg IV Q48H (day 9). Await culture results. Duration of treatment depends on the clinical picture. Monitor renal function and dose-adjust antibiotics. Qualifiers: Pneumonia type: due to unspecified organism Laterality: left Lung location: upper lobe of lung Qualified Code(s): J18.1 - Lobar pneumonia, unspecified organism (3) Acute kidney injury Current Visit: Yes Status: Acute Likely secondary to vanc toxicity. Serum creatinine continues to improve. Nephrology has been consulted and following. Continue to trend. Avoid nephrotoxins as able and dose-adjust antibiotics. (4) Vancomycin poisoning Current Visit: Yes Status: Acute Random vanc level 14.2. Qualifiers: Encounter type: initial encounter Injury intent: accidental or unintentional Qualified Code(s): T36.8X1A - Poisoning by other systemic antibiotics, accidental (unintentional), initial encounter (5) Abdominal pain Current Visit: Yes Status: Acute Etiology not clear. Lipase/amylase/LFT's WNL. CT abdomen without acute infectious process x 2. Pain management per the primary and palliative care teams. Qualifiers: Abdominal location: epigastric Qualified Code(s): R10.13 - Epigastric pain (6) CVA (cerebral vascular accident) Current Visit: No Status: Chronic Qualifiers: CVA mechanism: unspecified Qualified Code(s): I63.9 - Cerebral infarction, unspecified (7) Lung cancer Current Visit: Yes Status: Acute Diagnosed 3 months ago. First chemotherapy session was about 09/24/16. Appears to be getting worse with metastases. Hem/Onc following. Palliative care has been consulted. Qualifiers: Laterality: left Lung location: unspecified part of lung Qualified Code(s ): C34.92 - Malignant neoplasm of unspecified part of left bronchus or lung (8) Cancer associated pain Current Visit: Yes Status: Chronic Palliative care consulted. - Subjective Interval history: Patient seen and examined. No acute events noted overnight. Patient sitting up in the chair this morning. States that overall he feels better this morning. Denies fevers or chills. Denies chest pain, but reports continued shortness of breath and cough productive of clear and green/yellow sputum. Continues to complain of left sided abdominal pain, but denies nausea, vomiting, or diarrhea. States he is unsure when his last BM was, but per nursing documentation was 12/01/16. He denies urinary complaints. He complains of being thirsty as he is NPO for bronch later today. Infect Dis PN-Objective Data - Labs CBC & Chem 7: 12/03/16 05:01 12/04/16 03:07 Labs: Laboratory Results - last 24 hr 12/03/16 12/03/16 12/03/16 07:49 11:42 16:43 Sodium Potassium Chloride Carbon Dioxide BUN Creatinine Est GFR ( Amer) Est GFR (Non-Af Amer) BUN/Creatinine Ratio Glucose POC Glucose 111 H 113 H 101 H Calculated Osmolality Calcium Total Bilirubin AST ALT Alkaline Phosphatase Serum Total Protein Albumin Globulin Albumin/Globulin Ratio 12/03/16 12/04/16 20:44 03:07 Sodium 143 Potassium 3.2 L Chloride 96 L Carbon Dioxide 36 H BUN 31 H Creatinine 4.13 H Est GFR ( Amer) 18 L Est GFR (Non-Af Amer) 15 L BUN/Creatinine Ratio 8 Glucose 104 H POC Glucose 121 H Calculated Osmolality 303 H Calcium 10.4 Total Bilirubin 0.3 AST 15 ALT 10 Alkaline Phosphatase 99 Serum Total Protein 6.3 Albumin 2.2 L Globulin 4.1 H Albumin/Globulin Ratio 0.5 L Cultures: Cultures 12/02/16 16:04 Blood Culture - Preliminary Peripheral Venipuncture No growth. 12/02/16 16:04 Blood Culture - Preliminary Peripheral Venipuncture No growth. 12/03/16 08:00 Sputum Culture - Preliminary Sputum Gram Negative Nikita 11/25/16 17:06 Blood Culture - Final Peripheral Venipuncture No growth. 11/25/16 17:06 Blood Culture - Final Peripheral Venipuncture No growth. 11/23/16 08:30 Blood Culture - Final Peripheral Venipuncture No growth. 11/23/16 08:39 Blood Culture - Final Peripheral Venipuncture No growth. 11/25/16 19:05 Legionella Antigen - Final Urine,Clean Catch 11/20/16 15:00 Sputum Culture - Final Sputum Serology 11/25/16 Range/Units 11:30 Chlamy pneumoniae PCR Not Detected (Not Detect) Adenovirus (PCR) Not Detected (Not Detect) B. pertussis DNA (PCR) Not Detected (Not Detect) Coronavirus OC43 (PCR) Not Detected (Not Detect) Coronavirus HKU1 (PCR) Not Detected (Not Detect) Coronavirus 229E (PCR) Not Detected (Not Detect) Coronavirus NL63 (PCR) Not Detected (Not Detect) Human Metapneumovir PCR Not Detected (Not Detect) Influenza A (H1) PCR Not Detected (Not Detect) Influ A (H1N1/09) PCR Not Detected (Not Detect) Influenza A (H3) PCR Not Detected (Not Detect) Influenza A Untype (PCR) Not Detected (Not Detect) Influenza Type B (PCR) Not Detected (Not Detect) M.pneumoniae DNA (PCR) Not Detected (Not Detect) Parainfluenza 1 (PCR) Not Detected (Not Detect) Parainfluenza 2 (PCR) Not Detected (Not Detect) Parainfluenza 3 (PCR) Not Detected (Not Detect) Parainfluenza 4 (PCR) Not Detected (Not Detect) RSV (PCR) Not Detected (Not Detect) Entero/Rhino (PCR) Not Detected (Not Detect) Exam - Constitutional Vitals: Temp Pulse Resp BP Pulse Ox 98.7 F 110 25 149/99 99 12/04/16 07:51 12/04/16 08:05 12/04/16 07:51 12/04/16 07:51 12/04/16 08:05 General appearance: cooperative, no acute distress, thin - Head Head exam: Present: atraumatic, normal inspection, normocephalic - Eye Eye exam: Present: EOMI, normal appearance, PERRL Pupils: Present: normal accommodation - ENT ENT exam: Present: mucous membranes moist - Neck Neck exam: Present: normal inspection - Respiratory Respiratory exam: Present: CTAB. Absent: rales, respiratory distress, rhonchi, wheezes - Cardiovascular Cardiovascular exam: Present: RRR, +S1, +S2 - GI/Abdominal GI/Abdominal exam: Present: normal bowel sounds, soft, tenderness (generalized) . Absent: distended - Extremities Exam Extremities exam: Present: normal inspection. Absent: joint swelling, pedal edema, tenderness - Neurological Exam Neurological exam: Present: alert, oriented X3, no focal deficits - Psychiatric Psychiatric exam: Present: normal affect, normal mood - Skin Skin exam: Present: dry, intact, normal color, warm Consult Discharge Plan - Plan Referrals: Alexander Cox DO [Non-Partnered Physician] - (TRIED TO CALL AND MAKE AN APPOINTMENT THE OFFICE IS CLOSED ON FRIDAYS. ) Shabana Llamas DO [Primary Care Provider] - 12/11/16 10:20 am Gerardo Kendrick MD [Partnered Physician] - 12/08/16 9:30 am - Attending Attestation I examined this patient and my medical decision-making was reviewed with the ABLE SEAMAN/PA/Advanced Practice Nurse/Resident Physician. I agree with the documented findings, disposition and treatment plan as described except to the extent set forth below.
[2016-12-04] MEDS ORDERED: *HR* Midazolam HCl 5 MG/5 ML VIAL IVP ONE (13:35)
[2016-12-04] MEDS ORDERED: *HR* FentaNYL (PF) 100 MCG/2 ML VIAL ONE (13:36)
[2016-12-04] MEDS ORDERED: Ipratropium/Albuterol Neb 3 ML ONE (14:29)
[2016-12-04] MEDS ORDERED: Levofloxacin 750 MG/150 ML 750 MG/150 ML BAG IVPB SCH (15:00)
[2016-12-04] MEDS: Ringers Solution, Lactated 1,000 ML IVC SCH (15:17)
--- NOTE | 2016-12-04 16:05 | Internal Med Progress Note ---
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 (4) Tobacco abuse Current Visit: Yes Status: Chronic (5) HCAP (healthcare-associated pneumonia) Current Visit: Yes Status: Acute (6) Elevated troponin Current Visit: Yes Status: Acute (7) COPD exacerbation Current Visit: No Status: Acute (8) DVT prophylaxis Current Visit: No Status: Acute (9) Hypomagnesemia Current Visit: Yes Status: Acute (10) Acute kidney injury Current Visit: Yes Status: Acute (11) Congestive heart failure Current Visit: Yes Status: Acute Qualifiers: Qualified Code(s): I50.9 - Heart failure, unspecified - Subjective Interval history: Patient is a 56-year-old male with metastatic lung cancer who follows with Dr. Kendrick. Patient presented [facility] ED one day ago ith sepsis secondary to pneumonia. Patient had a CT chest which lung cancer. He had a temperature of 101.3 heart rate of 140,22, leukocytosis with WBC of 17. Patient did receive vancomycin 1, Zosyn 3.375 mg, and Levaquin 750 mg in the ED prior to admission to the ICU. He was continued on Vancomycin 1250mg q12hr, Zosyn 3.375mg q8hr, Levaquin 750 mg daily. Patient was previously hospitalized on 11/04/16 for sepsis secondary to pneumonia. He was discharged on 11/07/16. The patient was seen. He is sitting in bed eating his lunch and does not seem to be uncomfortable. Troponin elevated and will be repeated as well as CBC and CMP. Clinically he denies any chest pain. 11/21 breathing better and has been transferred out of ICU to stepdown unit. Still needs oxygen. Breath sounds still shallow. Continue current treatment as overall breath sounds are improving. Magnesium was low therefore supplemented. On admission patient troponin were mildly elevated of significance. An echocardiogram was done which showed normal cardiac ejection fraction of 55% no wall motion abnormality in LV with a good systolic function mild diastolic dysfunction noted valvular no significant valvular abnormality. 11/22 breathing has started improving. From tomorrow we may start tapering steroids. No other complaint. 11/23 this morning temperature 101.5. Ordered blood culture 2 stat repeat CBC CMP, and chest x-ray. On November 20 Levaquin was stopped by pulmonology. Blood and sputum cultures are negative to this date. Currently patient is on IV vancomycin and Zosyn. Echocardiogram reported yesterday showing ejection fraction in the range of 65-70% no significant valvular abnormality or LV dysfunction or vegetation. It was a transthoracic echo. 12/01 patient care was taken over from hospitalist team . It was noted the patient developed acute renal failure due to perhaps a combination of sepsis and vancomycin toxicity. Nephrology is case. Ultrasound did not show any obstruction. Hayes is still running low-grade temperature. Renal function has started improving and now creatinine is 5.23. 12/02 this morning patient was noted to be quite short of breath unable to lay flat and his JVD was noted to be elevated. We stopped the IV fluid give him a dose of IV Lasix and reexamine in in a few hours his condition improved quite a bit. Unfortunately he did not safe his urine. In any case he seems to be much better though is still high known to JVD correction down there for another dose of IV Lasix given. His renal functions are not improving. Case discussed with infectious disease was concerned that despite change in antibiotics patient fever has returned. I have suggested if he stop all antibiotics recultured him and see what we find out because I am concerned that while she is in hospital for such a long period of time if he is developing any other source or if he has postobstructive pneumonia in which case probably Diego will be warranted. At this time his CBC CMP will be repeated. Continue current treatment. Renal function are not improving much. Discharge planning discussed with the team patient and his family in presence of patient. I think he will be a single home candidate though at this time he wants to go home. Not sure about the nature of his heart failure but I suspect fluid overload due to continuous infusion and poor renal function. Echocardiogram done during this admission showed normal cardiac ejection fraction with diastolic dysfunction 12/03 appears better. Ambulating. Eager to go home. Infectious disease has repeated blood cultures 3 which are pending to the state but previous blood cultures were all negative. Patient has recurrent low-grade temperature for the last 24 hours he is afebrile. A fresh CT chest showed left hilar mass has increased in size. Infectious disease is requesting a bronc and I informed the assisted living housekeeper on-call. We will keep patient nothing by mouth tonight. In other issue is his discharge and palliative care will try to reach oncologist to get an idea what his long-term prognosis of this patient. Once these issues are resolved he can be discharged as his creatinine has started coming down and nephrology is comfortable in sending him home. 12/04 pulmonary consult appreciated. 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 He has developed post-obstruction pneumonia which despite prolonged antibiotic treatment is still causing fever and leukocytosis and overall deterioration of general well-being. Patient has become much weaker during this hospitalization and initially he could ambulate well but now he has become quite unsteady perhaps due to prolonged illness. He needs some support to go to bathroom and at home his bathroom is pretty far from his home therefore will prescribe a bedside commode. He requested oncology to return and further assess him. Palliative care team will also need their opinion. Main question is is patient ready or be eligible for immunotherapy. We will also see what assisted living housekeeper will find on his bronc and if patient can have a stent in the left main stem bronchus which is getting compressed due to worsening tumor load of left hilar mass. Briefly discussed with patient's family. Right now he is lethargic post prolonged and reports are pending. I discussed the case with social services director is. Patient was recommended by [facility] for alf facility however patient's family has declined and they want to take him home and to further rehabilitation at home that were being informed about possible risk and further deterioration of his comorbidity. - Constitutional Vitals: Temp Pulse Resp BP Pulse Ox 98.3 F 103 24 135/82 95 12/04/16 14:45 12/04/16 15:15 12/04/16 15:15 12/04/16 15:15 12/04/16 15:15 General appearance: Present: A&O X 3, underweight, answers questions appropriately - Head Head exam: Present: atraumatic, normocephalic - Eye Eye exam: Present: PERRL, conjuntiva pink, sclera anicteric Pupils: Present: PERRL - Neck Neck exam general surgery: Present: supple, trachea midline. Absent: lymphadenopathy - Respiratory Respiratory exam: Present: CTAB. Absent: accessory muscle use, rales, rhonchi, wheezes - Cardiovascular Cardiovascular exam: Present: RRR, +S1, +S2. Absent: diastolic murmur, gallop, rubs, systolic murmur - GI/Abdominal GI/Abdominal exam: Present: normal bowel sounds, soft, no peritoneal signs. Absent: distended, tenderness - Extremities Exam Extremities exam: Present: warm, radial pulses palpable and symetrical. Absent : calf tenderness, cyanotic, pedal edema - Neurological Exam Neurological exam: Present: no focal deficits. Absent: pronater drift, facial droop, speech deficit Additional comments: Patient is lethargic post-bronchitis I have asked nurses to watch him closely and see if he becomes more conscious - Skin Skin exam: Present: dry, intact Internal Medicine: Result - Labs CBC & Chem 7: 12/03/16 05:01 12/04/16 03:07 Labs: BMP 12/04/16 03:07 Sodium 143 Potassium 3.2 L Chloride 96 L Carbon Dioxide 36 H BUN 31 H Creatinine 4.13 H Glucose 104 H Calcium 10.4 Liver Function 12/04/16 Range/Units 03:07 Total Bilirubin 0.3 (0.2-1.2) mg/dL AST 15 (5-34) Units/L ALT 10 (0-55) Units/L Alkaline Phosphatase 99 (38-126) Units/L Albumin 2.2 L (3.5-5.0) g/dL - ABG Interpretation ABG results: ABG ABG pH 7.44 pH Units (7.32-7.45) 11/19/16 23:45 ABG pCO2 46 mmHg (35-45) H 11/19/16 23:45 ABG pO2 62 mmHg (85-104) L 11/19/16 23:45 ABG O2 Saturation 92 % (95-98) L 11/19/16 23:45 PT/INR, D-dimer PT 14.1 Seconds (9.4-12.1) H 11/20/16 00:10 Consult Discharge Plan - Plan Referrals: Alexander Cox DO [Non-Partnered Physician] - (TRIED TO CALL AND MAKE AN APPOINTMENT THE OFFICE IS CLOSED ON FRIDAYS. ) Shabana Llamas DO [Primary Care Provider] - 12/11/16 10:20 am Gerardo Kendrick MD [Partnered Physician] - 12/08/16 9:30 am
[2016-12-04] MEDS ORDERED: Potassium Chloride 40 MEQ, Lidocaine 1% 2 ML in D5% in Water 500 ML IVPB ONE (16:11)
[2016-12-04 21:40] LABS: Appearance of Body Fluid Clear (Clear); Volume of Body Fluid 20 mL
[2016-12-05] MEDS: *HR* Heparin 5,000 UNIT/ML VIAL SQ SCH ×4 (00:30→22:55)
[2016-12-05] MEDS: *HR* OxyCODONE Immed Rel 5 MG TABLET PO PRN ×3 (03:17→21:00)
--- NOTE | 2016-12-05 07:09 | Pulmonology Progress Note ---
Date of Encounter: 12/05/16 Time of Encounter: 07:09 Assessment and Plan (1) Pneumonia Current Visit: Yes Status: Acute Impression: 56-year-old gentleman unfortunately has non-small cell lung cancer ( adenocarcinoma) with distant metastases to the bone radiographically he has evidence of worsening tumor burden and left upper lobe with compression of the left mainstem which is leading to postobstructive pneumonia this appears to be worse this is correlating clinically with concern for the infectious disease team for untreated pneumonia. I spoke with the family and explained that bronchoscopy is a reasonable approach here in order to further delineate airway anatomy as well as to perform bronchoalveolar lavage for cultures. I explained that I would not be able to alleviate the obstruction on this for her seizure but could not determine if he would be a candidate for a possible interventional procedure in the future. Looking at the CT scan and images today IM dubious that he has a lesion that would be amenable to stenting and appears to be all extrinsic compression in which case the definitive treatment would be chemotherapy. Nevertheless, after discussion with the family and they are in agreement to proceed with this procedure and I feel that it could add benefit in that making diagnosis of pneumonia which would afford better treatment options which could lead to reinstitution of chemotherapy Recommendations: A bronchoscopy is recommended. The procedure , risks, benefits, complications, and expected outcomes have been reviewed. Benefits of diagnosis, as well as risks to include bleeding, infection, pneumothorax which may require surgical intervention, and in a small population. The patient is aware that sometimes test is nondiagnostic. Discussed with patient and his sister and defined POA (verbally)agrees to proceed. Recommend continuation of schedule bronchodilators; encouragingly the patient is not requiring high levels of supplemental oxygen and is not complaining of any dyspnea Continue antimicrobial therapy per infectious disease recommendations Agree with ongoing palliative care management Kidney injury being managed by nephrology service Qualifiers: Pneumonia type: due to unspecified organism Laterality: left Lung location: upper lobe of lung Qualified Code(s): J18.1 - Lobar pneumonia, unspecified organism (2) Lung cancer Current Visit: Yes Status: Acute Qualifiers: Laterality: left Lung location: unspecified part of lung Qualified Code(s ): C34.92 - Malignant neoplasm of unspecified part of left bronchus or lung (3) Counseling regarding advanced directives and goals of care Current Visit: Yes Status: Acute (4) DVT prophylaxis Current Visit: No Status: Acute Subjective Principal diagnosis: Pneumonia Interval history: Pulmonology was initially consulted on this patient on admission to the intensive care unit for severe sepsis physiology secondary to pneumonia he was successfully treated from this and was able to be discharged out of the ICU to stepdown unfortunately he has had a prolonged hospitalization complicated by recurrent infection followed by infectious disease team kidney injury and severe pain being managed by the palliative care service. His further workup of persistent leukocytosis and low-grade pyrexia repeat CT scan of the chest was obtained which was notable for increased size of left upper lobe tumor with worsening of postobstructive pneumonia Understandably the pulmonary service was consulted to reevaluate the patient for possibility of bronchoscopy to aid in diagnosis and management of this complex situation I spoke with the patient and his sister at bedside today and he was mostly just complaining of pain and really wanted to go home and they were both anxious to begin chemotherapy which is been unable to start because of poor performance status chronic clinical debility and recurrent infection Objective PUL Vital signs: Last Vital Signs Temp 99.7 F H 12/05/16 03:20 Pulse 127 12/05/16 03:20 Resp 16 12/05/16 03:20 BP 151/98 12/05/16 03:20 Pulse Ox 95 12/05/16 03:20 Results - Laboratory Findings CBC and BMP: 12/03/16 05:01 12/04/16 03:07 ABG ABG pH 7.44 pH Units (7.32-7.45) 11/19/16 23:45 ABG pCO2 46 mmHg (35-45) H 11/19/16 23:45 ABG pO2 62 mmHg (85-104) L 11/19/16 23:45 ABG O2 Saturation 92 % (95-98) L 11/19/16 23:45 PT/INR, D-dimer PT 14.1 Seconds (9.4-12.1) H 11/20/16 00:10 Abnormal lab findings: Abnormal lab results RBC 2.97 M/mcL (4.19-5.50) L 12/03/16 05:01 Hgb 8.7 g/dL (12.9-16.9) L 12/03/16 05:01 Hct 27.5 % (37.5-50.1) L 12/03/16 05:01 Monocytes # 1.5 K/mcL (0.0-1.3) H 12/03/16 05:01 PT 14.1 Seconds (9.4-12.1) H 11/20/16 00:10 APTT 24.9 Seconds (26.0-36.0) L 11/20/16 00:10 ABG pCO2 46 mmHg (35-45) H 11/19/16 23:45 ABG pO2 62 mmHg (85-104) L 11/19/16 23:45 ABG HCO3 31.2 mEQ/L (21-27) H 11/19/16 23:45 ABG Total CO2 32.6 mEq/L (20-26) H 11/19/16 23:45 ABG O2 Saturation 92 % (95-98) L 11/19/16 23:45 ABG Base Excess 6.1 mEq/L (-2.0 to 3.0) H 11/19/16 23:45 Potassium 3.2 mEq/L (3.5-4.5) L 12/04/16 03:07 Chloride 96 mEq/L (98-109) L 12/04/16 03:07 Carbon Dioxide 36 mEq/L (19-29) H 12/04/16 03:07 BUN 31 mg/dL (8-26) H 12/04/16 03:07 Creatinine 4.13 mg/dL (0.72-1.25) H 12/04/16 03:07 Est GFR ( Amer) 18 (> 60) L 12/04/16 03:07 Est GFR (Non-Af Amer) 15 (> 60) L 12/04/16 03:07 Glucose 104 mg/dL (70-99) H 12/04/16 03:07 POC Glucose 97 (58-89) H 12/04/16 11:47 Calculated Osmolality 303 (280-300) H 12/04/16 03:07 Phosphorus 6.5 mg/dL (2.3-4.7) H 11/29/16 08:20 Magnesium 1.1 mg/dL (1.6-2.6) L 11/20/16 04:43 Iron 14 mcg/dL (65-175) L 11/25/16 09:45 % Saturation 10 % (20-55) L 11/25/16 09:45 Transferrin 103 mg/dL (174-364) L 11/25/16 09:45 Troponin I 0.05 ng/mL (0-0.03) H* 11/20/16 16:26 Albumin 2.2 g/dL (3.5-5.0) L 12/04/16 03:07 Globulin 4.1 g/dL (2.4-3.5) H 12/04/16 03:07 Albumin/Globulin Ratio 0.5 (1.1-2.2) L 12/04/16 03:07 Amylase 18 Units/L (25-125) L 11/25/16 16:04 Vitamin B12 865 pg/mL (213-816) H 11/25/16 09:45 Procalcitonin 0.87 ng/mL (<=0.10) H 11/25/16 16:04 Vancomycin Trough 71.6 mcg/mL (10-20) H* 11/24/16 03:25 - Microbiology Findings Microbiology Findings: Microbiology, Last 48 Hours 12/03/16 08:00 Sputum Culture - Final Sputum Escherichia coli 12/04/16 14:26 Gram Stain - Final Left Upper Lobe Lung 12/02/16 16:04 Blood Culture - Preliminary Peripheral Venipuncture No growth. 12/02/16 16:04 Blood Culture - Preliminary Peripheral Venipuncture No growth. - Clinical Findings Intake & Output: Intake & Output 12/04/16 12/04/16 12/05/16 15:59 23:59 07:59 Intake Total 260 / 260 350 / 350 1250 / 1250 Output Total 550 / 550 1300 / 1300 Balance -290 / -290 350 / 350 -50 / -50 Weight 68.4 kg 68.1 kg Consult Discharge Plan - Plan Referrals: Alexander Cox DO [Non-Partnered Physician] - (TRIED TO CALL AND MAKE AN APPOINTMENT THE OFFICE IS CLOSED ON FRIDAYS. ) Shabana Llamas DO [Primary Care Provider] - 12/11/16 10:20 am Gerardo Kendrick MD [Partnered Physician] - 12/08/16 9:30 am
[2016-12-05] MEDS: Metoprolol XL (24 HR) Succ 50 MG TAB.ER.24H PO SCH (07:33)
[2016-12-05] MEDS: lamoTRIgine 25 MG TABLET PO SCH ×2 (07:33→21:00)
[2016-12-05] MEDS: amLODIPine 5 MG TABLET PO SCH ×2 (07:34→20:57)
[2016-12-05] MEDS: Nicotine 21 MG PATCH.TD24 TD SCH (07:34)
[2016-12-05] MEDS: Aspirin 81 MG TAB.CHEW PO SCH (07:34)
[2016-12-05] MEDS: Folic Acid 1 MG TABLET PO SCH (07:34)
[2016-12-05] MEDS: Sennosides/Docusate Sodium TABLET PO SCH ×2 (07:34→20:57)
[2016-12-05] MEDS: Ringers Solution, Lactated 1,000 ML IVC SCH (07:37)
--- NOTE | 2016-12-05 11:29 | Palliative Progress Note ---
Date of Encounter: 12/05/16 Time of Encounter: 07:45 - Assessment and plan (1) Cancer associated pain Current Visit: Yes Status: Chronic Assessment and plan: Overall the patient seems to be doing well with meds, he is awake and alert and states the medications are working well for him. No changes anticipated today. (2) Sepsis Current Visit: Yes Status: Acute Assessment and plan: ARMEN negative rods in sputum. Infectious disease is following. I believe that overall his prognosis is quite poor due to his metastatic cancer the patient does wish to continue to answer care as long as it is being offered. Plan for sepsis is per infectious disease pulmonary and hospitalist teams. Qualifiers: Sepsis type: sepsis due to unspecified organism Qualified Code(s): A41.9 - Sepsis, unspecified organism (3) Acute kidney injury Current Visit: Yes Status: Acute Assessment and plan: Creatinine continues to trend downward Nephrology is following. (4) Counseling regarding advanced directives and goals of care Current Visit: Yes Status: Acute Assessment and plan: The patient is DNR CCA, the patient wishes to continue to get aggressive therapy for his cancer as long as the cancer Center is recommending it. I did note that there has been a request for reevaluation by oncology will await their findings for further discussions with patient. (5) Therapeutic opioid induced constipation Current Visit: Yes Status: Acute Assessment and plan: The patient states he is having bowel movements, and these are at least to some degree recorded. Continue current medications. - Time Spent With Patient Total time spent is greater than 50% in coordination of care (as documented) at patient's floor/unit and/or counseling patient: - Subjective Interval history: The patient is awake and alert this morning. And able to carry on a conversation with me. He has no complaint of shortness of breath however the patient is having pain. The patient states the medications have been very effective for his pain thus far. He states that he is having bowel movements. - Constitutional Vitals: Abnormal lab results RBC 2.97 M/mcL (4.19-5.50) L 12/03/16 05:01 Hgb 8.7 g/dL (12.9-16.9) L 12/03/16 05:01 Hct 27.5 % (37.5-50.1) L 12/03/16 05:01 Monocytes # 1.5 K/mcL (0.0-1.3) H 12/03/16 05:01 PT 14.1 Seconds (9.4-12.1) H 11/20/16 00:10 APTT 24.9 Seconds (26.0-36.0) L 11/20/16 00:10 ABG pCO2 46 mmHg (35-45) H 11/19/16 23:45 ABG pO2 62 mmHg (85-104) L 11/19/16 23:45 ABG HCO3 31.2 mEQ/L (21-27) H 11/19/16 23:45 ABG Total CO2 32.6 mEq/L (20-26) H 11/19/16 23:45 ABG O2 Saturation 92 % (95-98) L 11/19/16 23:45 ABG Base Excess 6.1 mEq/L (-2.0 to 3.0) H 11/19/16 23:45 Potassium 3.2 mEq/L (3.5-4.5) L 12/04/16 03:07 Chloride 96 mEq/L (98-109) L 12/04/16 03:07 Carbon Dioxide 36 mEq/L (19-29) H 12/04/16 03:07 BUN 31 mg/dL (8-26) H 12/04/16 03:07 Creatinine 4.13 mg/dL (0.72-1.25) H 12/04/16 03:07 Est GFR ( Amer) 18 (> 60) L 12/04/16 03:07 Est GFR (Non-Af Amer) 15 (> 60) L 12/04/16 03:07 Glucose 104 mg/dL (70-99) H 12/04/16 03:07 POC Glucose 97 (58-89) H 12/04/16 11:47 Calculated Osmolality 303 (280-300) H 12/04/16 03:07 Phosphorus 6.5 mg/dL (2.3-4.7) H 11/29/16 08:20 Magnesium 1.1 mg/dL (1.6-2.6) L 11/20/16 04:43 Iron 14 mcg/dL (65-175) L 11/25/16 09:45 % Saturation 10 % (20-55) L 11/25/16 09:45 Transferrin 103 mg/dL (174-364) L 11/25/16 09:45 Troponin I 0.05 ng/mL (0-0.03) H* 11/20/16 16:26 Albumin 2.2 g/dL (3.5-5.0) L 12/04/16 03:07 Globulin 4.1 g/dL (2.4-3.5) H 12/04/16 03:07 Albumin/Globulin Ratio 0.5 (1.1-2.2) L 12/04/16 03:07 Amylase 18 Units/L (25-125) L 11/25/16 16:04 Vitamin B12 865 pg/mL (213-816) H 11/25/16 09:45 Procalcitonin 0.87 ng/mL (<=0.10) H 11/25/16 16:04 Vancomycin Trough 71.6 mcg/mL (10-20) H* 11/24/16 03:25 General appearance: Present: mild distress (Secondary to pain). Absent: no acute distress - Head Head exam: Present: atraumatic, normal inspection - ENT ENT exam: Present: mucous membranes moist - Neck Neck exam: Present: normal inspection - Respiratory Respiratory exam: Present: decreased breath sounds - Cardiovascular Cardiovascular exam: Present: RRR, tachycardia - GI/Abdominal GI/Abdominal exam: Present: normal bowel sounds, soft. Absent: tenderness - Extremities Exam Extremities exam: Present: pedal edema. Absent: tenderness - Neurological Exam Neurological exam: Present: alert - Psychiatric Psychiatric exam: Present: normal affect, normal mood. Absent: agitated, anxious - Skin Skin exam: Present: dry, warm Palliative Quality Palliative Quality: Screen for Code Status: Yes, Screen for Goals of Care: Yes, Screen for Pain: Yes, If Pain Regimen Started, Initiate Bowel Regimen: Yes, Screen for Nausea/Vomitting: Yes Code Status: 11/20/16 03:31 Resuscitation Status: Active [RES] Routine Comment: Resuscitation Status: Full Code Resuscitation Status: Active [RES] Routine Comment: Resuscitation Status: DNR-Comfort Care-Arrest - Labs CBC & Chem 7: 12/03/16 05:01 12/04/16 03:07 Labs: Laboratory Results - last 24 hr 12/04/16 12/04/16 11:47 14:26 POC Glucose 97 H Fluid Source left upper lobe Fluid Volume 20 Fluid Appearance Clear Fluid RBC TNP Fld Tot Nucleated Cell TNP Fluid Seg Neutrophil % 92.0 Fluid Lymphocytes % 5.0 Fluid Other Cells % 3.0 - ABG Interpretation ABG results: ABG ABG pH 7.44 pH Units (7.32-7.45) 11/19/16 23:45 ABG pCO2 46 mmHg (35-45) H 11/19/16 23:45 ABG pO2 62 mmHg (85-104) L 11/19/16 23:45 ABG O2 Saturation 92 % (95-98) L 11/19/16 23:45 PT/INR, D-dimer PT 14.1 Seconds (9.4-12.1) H 11/20/16 00:10 Consult Discharge Plan - Plan Referrals: Alexander Cox DO [Non-Partnered Physician] - (TRIED TO CALL AND MAKE AN APPOINTMENT THE OFFICE IS CLOSED ON FRIDAYS. ) Shabana Llamas DO [Primary Care Provider] - 12/11/16 10:20 am Gerardo Kendrick MD [Partnered Physician] - 12/08/16 9:30 am
--- NOTE | 2016-12-05 14:04 | Internal Med Progress Note ---
Date of Encounter: 12/05/16 Time of Encounter: 14:02 - Assessment and plan (1) Sepsis Current Visit: Yes Status: Acute Qualifiers: Sepsis type: sepsis due to unspecified organism Qualified Code(s): A41.9 - Sepsis, unspecified organism (2) Acute respiratory failure Current Visit: Yes Status: Acute Qualifiers: Respiratory failure complication: hypoxia Qualified Code(s): J96.01 - Acute respiratory failure with hypoxia (3) Cancer associated pain Current Visit: Yes Status: Chronic (4) Tobacco abuse Current Visit: Yes Status: Chronic (5) HCAP (healthcare-associated pneumonia) Current Visit: Yes Status: Acute (6) Elevated troponin Current Visit: Yes Status: Acute (7) COPD exacerbation Current Visit: No Status: Acute (8) DVT prophylaxis Current Visit: No Status: Acute (9) Hypomagnesemia Current Visit: Yes Status: Acute (10) Acute kidney injury Current Visit: Yes Status: Acute (11) Congestive heart failure Current Visit: Yes Status: Acute Qualifiers: Congestive heart failure type: unspecified congestive heart failure type Qualified Code(s): I50.9 - Heart failure, unspecified - Subjective Interval history: Patient is a 56-year-old male with metastatic lung cancer who follows with Dr. Kendrick. Patient presented [facility] ED one day ago ith sepsis secondary to pneumonia. Patient had a CT chest which lung cancer. He had a temperature of 101.3 heart rate of 140,22, leukocytosis with WBC of 17. Patient did receive vancomycin 1, Zosyn 3.375 mg, and Levaquin 750 mg in the ED prior to admission to the ICU. He was continued on Vancomycin 1250mg q12hr, Zosyn 3.375mg q8hr, Levaquin 750 mg daily. Patient was previously hospitalized on 11/04/16 for sepsis secondary to pneumonia. He was discharged on 11/07/16. The patient was seen. He is sitting in bed eating his lunch and does not seem to be uncomfortable. Troponin elevated and will be repeated as well as CBC and CMP. Clinically he denies any chest pain. 11/21 breathing better and has been transferred out of ICU to stepdown unit. Still needs oxygen. Breath sounds still shallow. Continue current treatment as overall breath sounds are improving. Magnesium was low therefore supplemented. On admission patient troponin were mildly elevated of significance. An echocardiogram was done which showed normal cardiac ejection fraction of 55% no wall motion abnormality in LV with a good systolic function mild diastolic dysfunction noted valvular no significant valvular abnormality. 11/22 breathing has started improving. From tomorrow we may start tapering steroids. No other complaint. 11/23 this morning temperature 101.5. Ordered blood culture 2 stat repeat CBC CMP, and chest x-ray. On November 20 Levaquin was stopped by pulmonology. Blood and sputum cultures are negative to this date. Currently patient is on IV vancomycin and Zosyn. Echocardiogram reported yesterday showing ejection fraction in the range of 65-70% no significant valvular abnormality or LV dysfunction or vegetation. It was a transthoracic echo. 12/01 patient care was taken over from hospitalist team . It was noted the patient developed acute renal failure due to perhaps a combination of sepsis and vancomycin toxicity. Nephrology is case. Ultrasound did not show any obstruction. Hayes is still running low-grade temperature. Renal function has started improving and now creatinine is 5.23. 12/02 this morning patient was noted to be quite short of breath unable to lay flat and his JVD was noted to be elevated. We stopped the IV fluid give him a dose of IV Lasix and reexamine in in a few hours his condition improved quite a bit. Unfortunately he did not safe his urine. In any case he seems to be much better though is still high known to [facility] down [facility] for another dose of IV Lasix given. His renal functions are not improving. Case discussed with infectious disease was concerned that despite change in antibiotics patient fever has returned. I have suggested if he stop all antibiotics recultured him and see what we find out because I am concerned that while she is in hospital for such a long period of time if he is developing any other source or if he has postobstructive pneumonia in which case probably Diego will be warranted. At this time his CBC CMP will be repeated. Continue current treatment. Renal function are not improving much. Discharge planning discussed with the team patient and his family in presence of patient. I think he will be a single home candidate though at this time he wants to go home. Not sure about the nature of his heart failure but I suspect fluid overload due to continuous infusion and poor renal function. Echocardiogram done during this admission showed normal cardiac ejection fraction with diastolic dysfunction 12/03 appears better. Ambulating. Eager to go home. Infectious disease has repeated blood cultures 3 which are pending to the state but previous blood cultures were all negative. Patient has recurrent low-grade temperature for the last 24 hours he is afebrile. A fresh CT chest showed left hilar mass has increased in size. Infectious disease is requesting a bronc and I informed the cnmt on-call. We will keep patient nothing by mouth tonight. In other issue is his discharge and palliative care will try to reach oncologist to get an idea what his long-term prognosis of this patient. Once these issues are resolved he can be discharged as his creatinine has started coming down and nephrology is comfortable in sending him home. 12/04 pulmonary consult appreciated. 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 He has developed post-obstruction pneumonia which despite prolonged antibiotic treatment is still causing fever and leukocytosis and overall deterioration of general well-being. Patient has become much weaker during this hospitalization and initially he could ambulate well but now he has become quite unsteady perhaps due to prolonged illness. He needs some support to go to bathroom and at home his bathroom is pretty far from his home therefore will prescribe a bedside commode. He requested oncology to return and further assess him. Palliative care team will also need their opinion. Main question is is patient ready or be eligible for immunotherapy. We will also see what cnmt will find on his bronc and if patient can have a stent in the left main stem bronchus which is getting compressed due to worsening tumor load of left hilar mass. Briefly discussed with patient's family. Right now he is lethargic post prolonged and reports are pending. I discussed the case with oncology social worker is. Patient was recommended by [facility] for long-term facility however patient's family has declined and they want to take him home and to further rehabilitation at home that were being informed about possible risk and further deterioration of his comorbidit 12/05 patient sputum Gram stain and culture showed Escherichia coli sensitive to cephalosporins but resistant to Levaquin. He has post obstructive pneumonia and yesterday BAL was done still having low-grade temperature but white count is normal. Infectious disease will further assess him. Potassium was low therefore will be supplemented and will be rechecked tomorrow while renal function is slowly improving. Patient will be moved out of to not now - Constitutional Vitals: Temp Pulse Resp BP Pulse Ox 99.0 F 110 14 132/81 96 12/05/16 12:00 12/05/16 12:00 12/05/16 12:00 12/05/16 07:44 12/05/16 12:00 General appearance: Present: A&O X 3, underweight, answers questions appropriately - Head Head exam: Present: atraumatic, normocephalic - Eye Eye exam: Present: PERRL, conjuntiva pink, sclera anicteric Pupils: Present: PERRL - Neck Neck exam general surgery: Present: supple, trachea midline. Absent: lymphadenopathy - Respiratory Respiratory exam: Present: decreased breath sounds. Absent: accessory muscle use, rales, rhonchi, wheezes - Cardiovascular Cardiovascular exam: Present: RRR, +S1, +S2. Absent: diastolic murmur, gallop, rubs, systolic murmur - GI/Abdominal GI/Abdominal exam: Present: normal bowel sounds, soft, no peritoneal signs. Absent: distended, tenderness - Extremities Exam Extremities exam: Present: warm, radial pulses palpable and symetrical. Absent : calf tenderness, cyanotic, pedal edema - Neurological Exam Neurological exam: Present: CN II-XII intact, oriented X3, no focal deficits. Absent: pronater drift, facial droop, speech deficit - Skin Skin exam: Present: dry, intact Internal Medicine: Result - Labs CBC & Chem 7: 12/03/16 05:01 12/04/16 03:07 - ABG Interpretation ABG results: ABG ABG pH 7.44 pH Units (7.32-7.45) 11/19/16 23:45 ABG pCO2 46 mmHg (35-45) H 11/19/16 23:45 ABG pO2 62 mmHg (85-104) L 11/19/16 23:45 ABG O2 Saturation 92 % (95-98) L 11/19/16 23:45 PT/INR, D-dimer PT 14.1 Seconds (9.4-12.1) H 11/20/16 00:10 Consult Discharge Plan - Plan Referrals: Alexander Cox DO [Non-Partnered Physician] - (TRIED TO CALL AND MAKE AN APPOINTMENT THE OFFICE IS CLOSED ON FRIDAYS. ) Shabana Llamas DO [Primary Care Provider] - 12/11/16 10:20 Gerardo Kerns MD [Partnered Physician] - 12/08/16 9:30 am
--- NOTE | 2016-12-05 15:53 | Event Note ---
Date of Encounter: 12/05/16 Time of Encounter: 15:51 No untoward effects status post bronchoscopy. BAL fluid positive for gram- negative rods which is likely Escherichia coli which is grown from the sputum. This was apparently resistant to fluoroquinolones and antimicrobials have been will be adjusted ID recommendations. Patient did have endobronchial tumor invasion in the left upper lobe which may be amenable to interventional procedure if recurrence of pneumonia or he fails therapy. This can be arranged on an outpatient basis if needed. I will discuss the case with our interventional occasional caregiver to see if the airway lesion would be amenable to dilation or debulking. Please call with any questions
[2016-12-05] MEDS: Ondansetron 4 MG/2 ML VIAL IVP PRN (22:57)
[2016-12-06 04:29] LABS: Basophils % 0.2 %; Eosinophils % 0.2 %; Hematocrit 32.9 % (37.5-50.1); Hemoglobin 10.1 g/dL (12.9-16.9); Immature Granulocytes % 1.8 % (0-4); Lymphocytes # 2.7 K/mcL (0.6-4.6); Lymphocytes % 16.1 %; Mean Corpuscular HGB Conc 30.7 g/dL (31.6-35.5); Mean Corpuscular Hemoglobin 28.9 pg (28.0-33.3); Mean Platelet Volume 9.9 fL (9.4-12.4); Monocytes # 2.3 K/mcL (0.0-1.3); Monocytes % 13.7 %; Neutrophils # 11.2 K/mcL (1.6-8.9); Platelet Count 248 K/mcL (140-400); Red Cell Distribution Width 13.9 % (11.5-14.5)
[2016-12-06 04:44] LABS: Albumin 2.1 g/dL (3.5-5.0); Albumin/Globulin Ratio 0.5 (1.1-2.2); Bilirubin,Total 0.3 mg/dL (0.2-1.2); Calcium 10.4 mg/dL (8.6-10.8); Globulin 4.3 g/dL (2.4-3.5); Potassium 3.3 mEq/L (3.5-4.5); Total Protein 6.4 g/dL (6.0-8.3)
[2016-12-06] MEDS: Ondansetron 4 MG/2 ML VIAL IVP PRN (05:44)
[2016-12-06] MEDS: Ringers Solution, Lactated 1,000 ML IVC SCH ×2 (05:44→23:47)
[2016-12-06 07:28] LABS: Basophils % 0.1 %; Eosinophils % 0.1 %; Hematocrit 33.6 % (37.5-50.1); Hemoglobin 10.4 g/dL (12.9-16.9); Lymphocytes # 3.6 K/mcL (0.6-4.6); Lymphocytes % 17.5 %; Mean Corpuscular Hemoglobin 28.9 pg (28.0-33.3); Mean Corpuscular Volume 93.3 fL (83.0-100.0); Mean Platelet Volume 10.8 fL (9.4-12.4); Monocytes % 14.8 %; Neutrophils # 13.4 K/mcL (1.6-8.9); Nucleated Red Blood Cells 0.1 /100 WBC (0); Platelet Count 257 K/mcL (140-400); Segmented Neutrophils % 65.5 %
[2016-12-06] MEDS: *HR* OxyCODONE Immed Rel 5 MG TABLET PO PRN ×5 (07:48→23:58)
--- NOTE | 2016-12-06 08:19 | Internal Med Progress Note ---
Date of Encounter: 12/06/16 Time of Encounter: 08:16 - Assessment and plan (1) Sepsis Current Visit: Yes Status: Acute Assessment and plan: Perhaps related to gram-negative sepsis secondary to gram-negative pneumonia. Continue current treatment Qualifiers: Sepsis type: sepsis due to unspecified organism Qualified Code(s): A41.9 - Sepsis, unspecified organism (2) Acute respiratory failure Current Visit: Yes Status: Acute Assessment and plan: At this point on nasal oxygen and seems like he is improving slowly except that his pneumonia which is postobstructive has become an issue Qualifiers: Respiratory failure complication: hypoxia Qualified Code(s): J96.01 - Acute respiratory failure with hypoxia (3) Cancer associated pain Current Visit: Yes Status: Chronic Assessment and plan: Patient is on fentanyl and oxycodone and probably would require heavy pain medication as outpatient to he has been referred to palliative care (4) Tobacco abuse Current Visit: Yes Status: Chronic Assessment and plan: Constant provided patient is on nicotine patch (5) Elevated troponin Current Visit: Yes Status: Acute Assessment and plan: Echocardiogram showed normal LV systolic function and no wall motion abnormality. Could be demand related versus due to acute kidney injury (6) COPD exacerbation Current Visit: No Status: Acute Assessment and plan: On nebulizers however as bathing his status improved can be switched to inhaler upon discharge (7) DVT prophylaxis Current Visit: No Status: Acute Assessment and plan: Heparin and SCDs (8) Hypomagnesemia Current Visit: Yes Status: Acute Assessment and plan: Corrected and will be monitored on regular basis (9) Acute kidney injury Current Visit: Yes Status: Acute Assessment and plan: Suspect due to multiple factors including sepsis, vancomycin perhaps. Nephrology on case. Renal function improving gradually and nephrology has recommended a discharge (10) Congestive heart failure Current Visit: Yes Status: Acute Assessment and plan: Echocardiogram shows an ejection fraction of 65% with mild diastolic dysfunction. I suspect acute best the congestive heart failure due to volume overload. Patient current fluid balance is negative. Qualifiers: Congestive heart failure type: unspecified congestive heart failure type Qualified Code(s): I50.9 - Heart failure, unspecified (11) Pneumonia due to gram-negative bacteria Current Visit: Yes Status: Acute Assessment and plan: Patient has postobstructive Escherichia coli pneumonia and left upper lobe which is resistant to Levaquin. Continue antibiotics and monitor clinically and through white count. - Subjective Interval history: Patient is a 56-year-old male with metastatic lung cancer who follows with Dr. Kendrick. Patient presented [facility] ED one day ago ith sepsis secondary to pneumonia. Patient had a CT chest which lung cancer. He had a temperature of 101.3 heart rate of 140,22, leukocytosis with WBC of 17. Patient did receive vancomycin 1, Zosyn 3.375 mg, and Levaquin 750 mg in the ED prior to admission to the ICU. He was continued on Vancomycin 1250mg q12hr, Zosyn 3.375mg q8hr, Levaquin 750 mg daily. Patient was previously hospitalized on 11/04/16 for sepsis secondary to pneumonia. He was discharged on 11/07/16. The patient was seen. He is sitting in bed eating his lunch and does not seem to be uncomfortable. Troponin elevated and will be repeated as well as CBC and CMP. Clinically he denies any chest pain. 11/21 breathing better and has been transferred out of ICU to stepdown unit. Still needs oxygen. Breath sounds still shallow. Continue current treatment as overall breath sounds are improving. Magnesium was low therefore supplemented. On admission patient troponin were mildly elevated of significance. An echocardiogram was done which showed normal cardiac ejection fraction of 55% no wall motion abnormality in LV with a good systolic function mild diastolic dysfunction noted valvular no significant valvular abnormality. 11/22 breathing has started improving. From tomorrow we may start tapering steroids. No other complaint. 11/23 this morning temperature 101.5. Ordered blood culture 2 stat repeat CBC CMP, and chest x-ray. On November 20 Levaquin was stopped by pulmonology. Blood and sputum cultures are negative to this date. Currently patient is on IV vancomycin and Zosyn. Echocardiogram reported yesterday showing ejection fraction in the range of 65-70% no significant valvular abnormality or LV dysfunction or vegetation. It was a transthoracic echo. 12/01 patient care was taken over from hospitalist team . It was noted the patient developed acute renal failure due to perhaps a combination of sepsis and vancomycin toxicity. Nephrology is case. Ultrasound did not show any obstruction. Hayes is still running low-grade temperature. Renal function has started improving and now creatinine is 5.23. 12/02 this morning patient was noted to be quite short of breath unable to lay flat and his JVD was noted to be elevated. We stopped the IV fluid give him a dose of IV Lasix and reexamine in in a few hours his condition improved quite a bit. Unfortunately he did not safe his urine. In any case he seems to be much better though is still high known to [facility] for another dose of IV Lasix given. His renal functions are not improving. Case discussed with infectious disease was concerned that despite change in antibiotics patient fever has returned. I have suggested if he stop all antibiotics recultured him and see what we find out because I am concerned that while she is in hospital for such a long period of time if he is developing any other source or if he has postobstructive pneumonia in which case probably Diego will be warranted. At this time his CBC CMP will be repeated. Continue current treatment. Renal function are not improving much. Discharge planning discussed with the team patient and his family in presence of patient. I think he will be a single home candidate though at this time he wants to go home. Not sure about the nature of his heart failure but I suspect fluid overload due to continuous infusion and poor renal function. Echocardiogram done during this admission showed normal cardiac ejection fraction with diastolic dysfunction 12/03 appears better. Ambulating. Eager to go home. Infectious disease has repeated blood cultures 3 which are pending to the state but previous blood cultures were all negative. Patient has recurrent low-grade temperature for the last 24 hours he is afebrile. A fresh CT chest showed left hilar mass has increased in size. Infectious disease is requesting a [facility] and I informed the dental hygiene instructor on-call. We will keep patient nothing by mouth tonight. In other issue is his discharge and palliative care will try to reach oncologist to get an idea what his long-term prognosis of this patient. Once these issues are resolved he can be discharged as his creatinine has started coming down and nephrology is comfortable in sending him home. 12/04 pulmonary consult appreciated. 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 He has developed post-obstruction pneumonia which despite prolonged antibiotic treatment is still causing fever and leukocytosis and overall deterioration of general well-being. Patient has become much weaker during this hospitalization and initially he could ambulate well but now he has become quite unsteady perhaps due to prolonged illness. He needs some support to go to bathroom and at home his bathroom is pretty far from his home therefore will prescribe a bedside commode. He requested oncology to return and further assess him. Palliative care team will also need their opinion. Main question is is patient ready or be eligible for immunotherapy. We will also see what dental hygiene instructor will find on his [facility] and if patient can have a stent in the left main stem bronchus which is getting compressed due to worsening tumor load of left hilar mass. Briefly discussed with patient's family. Right now he is lethargic post prolonged and reports are pending. I discussed the case with social welfare research worker is. Patient was recommended by [facility] for [facility] facility however patient's family has declined and they want to take him home and to further rehabilitation at home that were being informed about possible risk and further deterioration of his comorbidit 12/05 patient sputum Gram stain and culture showed Escherichia coli sensitive to cephalosporins but resistant to Levaquin. He has post obstructive pneumonia and yesterday BAL was done still having low-grade temperature but white count is normal. Infectious disease will further assess him. Potassium was low therefore will be supplemented and will be rechecked tomorrow while renal function is slowly improving. Patient will be moved out of to not now 12/06 as noted above patient has left sided post obstructive gram-negative pneumonia and BAL yielded Escherichia coli resistant to Levaquin. Repeat white cell count is 20,000. Levaquin has been a stop and IV Rocephin and Flagyl as started. The 10 to keep an eye on her creatinine which is actually improving and if it is an issue Rocephin can be substituted. Nephrology is on the case. Despite the fact that patient has maintained -1.5 L fluid balance in the last 48 hours as he is almost 12 L positive since admission his creatinine is improving. Acute kidney injury was considered secondary to prevent toxicity. His metastatic lung cancer treatment issues is still not clear but pulmonology has suggested palliative dilatation or stent placement of left bronchus in case if medical treatment fails. Oncology has been requested to return for further comments. In any case it seems like that pulmonology and nephrology are agreeable for discharge and patient will receive palliative care at home as he has declined [facility] facility option. Once infectious disease issue is resolved but remains improvement in white count with a plan to discharge him. His potassium is persistently low therefore I I will supplement potassium today however that she will remain that if this is a consistent pattern pattern and we need to supplement potassium on daily basis in which case I will refer this patient to nephrology as he has acute kidney injury. - Constitutional Vitals: Temp Pulse Resp BP Pulse Ox 98.4 F 125 18 115/76 93 12/06/16 07:45 12/06/16 07:45 12/06/16 07:45 12/06/16 07:45 12/06/16 07:45 General appearance: Present: A&O X 3, underweight, answers questions appropriately - Head Head exam: Present: atraumatic, normocephalic - Eye Eye exam: Present: PERRL, conjuntiva pink, sclera anicteric Pupils: Present: PERRL - Neck Neck exam general surgery: Present: supple, trachea midline. Absent: lymphadenopathy - Respiratory Respiratory exam: Present: CTAB. Absent: accessory muscle use, rales, rhonchi, wheezes - Cardiovascular Cardiovascular exam: Present: RRR, +S1, +S2. Absent: diastolic murmur, gallop, rubs, systolic murmur - GI/Abdominal GI/Abdominal exam: Present: normal bowel sounds, soft, no peritoneal signs. Absent: distended, tenderness - Extremities Exam Extremities exam: Present: warm, radial pulses palpable and symetrical. Absent : calf tenderness, cyanotic, pedal edema - Neurological Exam Neurological exam: Present: CN II-XII intact, oriented X3, no focal deficits. Absent: pronater drift, facial droop, speech deficit - Skin Skin exam: Present: dry, intact Internal Medicine: Result - Labs CBC & Chem 7: 12/06/16 06:04 12/06/16 03:40 Labs: Short CBC 12/06/16 12/06/16 Range/Units 03:40 06:04 WBC 16.5 H D 20.5 H (4.3-11.1) K/mcL Hgb 10.1 L 10.4 L (12.9-16.9) g/dL Hct 32.9 L 33.6 L (37.5-50.1) % Plt Count 248 257 (140-400) K/mcL Neutrophils # 11.2 H 13.4 H (1.6-8.9) K/mcL BMP 12/06/16 03:40 Sodium 143 Potassium 3.3 L Chloride 93 L Carbon Dioxide 41 H* BUN 29 H Creatinine 3.25 H Glucose 94 Calcium 10.4 Liver Function 12/06/16 Range/Units 03:40 Total Bilirubin 0.3 (0.2-1.2) mg/dL AST 18 (5-34) Units/L ALT 8 (0-55) Units/L Alkaline Phosphatase 103 (38-126) Units/L Albumin 2.1 L (3.5-5.0) g/dL - ABG Interpretation ABG results: ABG ABG pH 7.44 pH Units (7.32-7.45) 11/19/16 23:45 ABG pCO2 46 mmHg (35-45) H 11/19/16 23:45 ABG pO2 62 mmHg (85-104) L 11/19/16 23:45 ABG O2 Saturation 92 % (95-98) L 11/19/16 23:45 PT/INR, D-dimer PT 14.1 Seconds (9.4-12.1) H 11/20/16 00:10 Consult Discharge Plan - Plan Referrals: Alexander Cox DO [Non-Partnered Physician] - (TRIED TO CALL AND MAKE AN APPOINTMENT THE OFFICE IS CLOSED ON FRIDAYS. ) Shabana Llamas DO [Primary Care Provider] - 12/11/16 10:20 am Gerardo Kendrick MD [Partnered Physician] - 12/08/16 9:30 am
[2016-12-06] MEDS ORDERED: Potassium Chloride Elixir 20 MEQ/15 ML UDC PO ONE (08:30)
--- NOTE | 2016-12-06 09:13 | Palliative Progress Note ---
Date of Encounter: 12/06/16 Time of Encounter: 07:25 - Assessment and plan (1) Cancer associated pain Current Visit: Yes Status: Chronic Assessment and plan: Overall the patient seems to be doing well with meds, he is awake and alert and states the medications are working seem to wear off a little early. I did assure him that he can take them more frequently. I did note he has not used his medication acute three-hour intervals. Continue to watch and adjust intervals as needed. At this time he is not using them that much, I will not make the change at this time for that reason. (2) Sepsis Current Visit: Yes Status: Acute Assessment and plan: ARMEN negative rods in sputum. Infectious disease is following. I believe that overall his prognosis is quite poor due to his metastatic cancer the patient does wish to continue to answer care as long as it is being offered. Plan for sepsis is per infectious disease pulmonary and hospitalist teams. White blood cell count is back up today. Qualifiers: Sepsis type: sepsis due to unspecified organism Qualified Code(s): A41.9 - Sepsis, unspecified organism (3) Acute kidney injury Current Visit: Yes Status: Acute Assessment and plan: Creatinine continues to trend downward, much better today Nephrology is following. (4) Counseling regarding advanced directives and goals of care Current Visit: Yes Status: Acute Assessment and plan: The patient is DNR CCA, the patient wishes to continue to get aggressive therapy for his cancer as long as the cancer Center is recommending it. I did note that there has been a request for reevaluation by oncology will await their findings for further discussions with patient. (5) Therapeutic opioid induced constipation Current Visit: Yes Status: Acute Assessment and plan: The patient states he is having bowel movements, and these are at least to some degree recorded. Continue current medications. - Time Spent With Patient Total time spent is greater than 50% in coordination of care (as documented) at patient's floor/unit and/or counseling patient: - Subjective Interval history: The patient is awake and alert this morning. And able to carry on a conversation with me. He is coughing and bringing up a great deal of sputum. Some of it is even a little blood-tinged but appears somewhat green. he states the pain medications continue to work but he feels that they are wearing off a little bit early. Noticed however he has never asked for his meds at every 3 hour intervals. - Constitutional Vitals: Abnormal lab results WBC 20.5 K/mcL (4.3-11.1) H 12/06/16 06:04 RBC 3.60 M/mcL (4.19-5.50) L 12/06/16 06:04 Hgb 10.4 g/dL (12.9-16.9) L 12/06/16 06:04 Hct 33.6 % (37.5-50.1) L 12/06/16 06:04 MCHC 31.0 g/dL (31.6-35.5) L 12/06/16 06:04 Neutrophils # 13.4 K/mcL (1.6-8.9) H 12/06/16 06:04 Monocytes # 3.0 K/mcL (0.0-1.3) H 12/06/16 06:04 Nucleated RBCs/100 WBC 0.1 /100 WBC (0) H 12/06/16 06:04 PT 14.1 Seconds (9.4-12.1) H 11/20/16 00:10 APTT 24.9 Seconds (26.0-36.0) L 11/20/16 00:10 ABG pCO2 46 mmHg (35-45) H 11/19/16 23:45 ABG pO2 62 mmHg (85-104) L 11/19/16 23:45 ABG HCO3 31.2 mEQ/L (21-27) H 11/19/16 23:45 ABG Total CO2 32.6 mEq/L (20-26) H 11/19/16 23:45 ABG O2 Saturation 92 % (95-98) L 11/19/16 23:45 ABG Base Excess 6.1 mEq/L (-2.0 to 3.0) H 11/19/16 23:45 Potassium 3.3 mEq/L (3.5-4.5) L 12/06/16 03:40 Chloride 93 mEq/L (98-109) L 12/06/16 03:40 Carbon Dioxide 41 mEq/L (19-29) H* 12/06/16 03:40 BUN 29 mg/dL (8-26) H 12/06/16 03:40 Creatinine 3.25 mg/dL (0.72-1.25) H 12/06/16 03:40 Est GFR ( Amer) 24 (> 60) L 12/06/16 03:40 Est GFR (Non-Af Amer) 20 (> 60) L 12/06/16 03:40 POC Glucose 97 (58-89) H 12/04/16 11:47 Calculated Osmolality 302 (280-300) H 12/06/16 03:40 Phosphorus 6.5 mg/dL (2.3-4.7) H 11/29/16 08:20 Magnesium 1.1 mg/dL (1.6-2.6) L 11/20/16 04:43 Iron 14 mcg/dL (65-175) L 11/25/16 09:45 % Saturation 10 % (20-55) L 11/25/16 09:45 Transferrin 103 mg/dL (174-364) L 11/25/16 09:45 Troponin I 0.05 ng/mL (0-0.03) H* 11/20/16 16:26 Albumin 2.1 g/dL (3.5-5.0) L 12/06/16 03:40 Globulin 4.3 g/dL (2.4-3.5) H 12/06/16 03:40 Albumin/Globulin Ratio 0.5 (1.1-2.2) L 12/06/16 03:40 Amylase 18 Units/L (25-125) L 11/25/16 16:04 Vitamin B12 865 pg/mL (213-816) H 11/25/16 09:45 Procalcitonin 0.87 ng/mL (<=0.10) H 11/25/16 16:04 Vancomycin Trough 71.6 mcg/mL (10-20) H* 11/24/16 03:25 General appearance: Present: no acute distress - Head Head exam: Present: atraumatic, normal inspection - Eye Eye exam: Present: normal appearance - ENT ENT exam: Present: mucous membranes moist (Coughing up green sputum) - Neck Neck exam: Present: normal inspection - Respiratory Respiratory exam: Present: decreased breath sounds, rhonchi - Cardiovascular Cardiovascular exam: Present: RRR, tachycardia - GI/Abdominal GI/Abdominal exam: Present: normal bowel sounds, soft. Absent: tenderness - Extremities Exam Extremities exam: Present: normal inspection. Absent: tenderness - Neurological Exam Neurological exam: Present: alert - Psychiatric Psychiatric exam: Absent: agitated, anxious - Skin Skin exam: Present: dry, warm Palliative Quality Palliative Quality: Screen for Code Status: Yes, Screen for Goals of Care: Yes, Screen for Pain: Yes, If Pain Regimen Started, Initiate Bowel Regimen: Yes, Screen for Nausea/Vomitting: Yes Code Status: 11/20/16 03:31 Resuscitation Status: Active [RES] Routine Comment: Resuscitation Status: Full Code Resuscitation Status: Active [RES] Routine Comment: Resuscitation Status: DNR-Comfort Care-Arrest - Labs CBC & Chem 7: 12/06/16 06:04 12/06/16 03:40 Labs: Laboratory Results - last 24 hr 12/04/16 12/06/16 12/06/16 14:26 03:40 03:40 WBC 16.5 H D RBC 3.50 L Hgb 10.1 L Hct 32.9 L MCV 94.0 MCH 28.9 MCHC 30.7 L RDW 13.9 Plt Count 248 MPV 9.9 Immature Gran % 1.8 Seg Neutrophils % 68.0 Lymphocytes % 16.1 Monocytes % 13.7 Eosinophils % 0.2 Basophils % 0.2 Neutrophils # 11.2 H Lymphocytes # 2.7 Monocytes # 2.3 H Eosinophils # 0.0 Basophils # 0.0 Nucleated RBCs/100 WBC Sodium 143 Potassium 3.3 L Chloride 93 L Carbon Dioxide 41 H* BUN 29 H Creatinine 3.25 H Est GFR ( Amer) 24 L Est GFR (Non-Af Amer) 20 L BUN/Creatinine Ratio 9 Glucose 94 Calculated Osmolality 302 H Calcium 10.4 Total Bilirubin 0.3 AST 18 ALT 8 Alkaline Phosphatase 103 Serum Total Protein 6.4 Albumin 2.1 L Globulin 4.3 H Albumin/Globulin Ratio 0.5 L Fluid Source left upper lobe Fluid Volume 20 Fluid Appearance Clear Fluid RBC TNP Fld Tot Nucleated Cell TNP Fluid Seg Neutrophil % 92.0 Fluid Lymphocytes % 5.0 Fluid Other Cells % 3.0 12/06/16 06:04 WBC 20.5 H RBC 3.60 L Hgb 10.4 L Hct 33.6 L MCV 93.3 MCH 28.9 MCHC 31.0 L RDW 14.0 Plt Count 257 MPV 10.8 Immature Gran % 2.0 Seg Neutrophils % 65.5 Lymphocytes % 17.5 Monocytes % 14.8 Eosinophils % 0.1 Basophils % 0.1 Neutrophils # 13.4 H Lymphocytes # 3.6 Monocytes # 3.0 H Eosinophils # 0.0 Basophils # 0.0 Nucleated RBCs/100 WBC 0.1 H Sodium Potassium Chloride Carbon Dioxide BUN Creatinine Est GFR ( Amer) Est GFR (Non-Af Amer) BUN/Creatinine Ratio Glucose Calculated Osmolality Calcium Total Bilirubin AST ALT Alkaline Phosphatase Serum Total Protein Albumin Globulin Albumin/Globulin Ratio Fluid Source Fluid Volume Fluid Appearance Fluid RBC Fld Tot Nucleated Cell Fluid Seg Neutrophil % Fluid Lymphocytes % Fluid Other Cells % - ABG Interpretation ABG results: ABG ABG pH 7.44 pH Units (7.32-7.45) 11/19/16 23:45 ABG pCO2 46 mmHg (35-45) H 11/19/16 23:45 ABG pO2 62 mmHg (85-104) L 11/19/16 23:45 ABG O2 Saturation 92 % (95-98) L 11/19/16 23:45 PT/INR, D-dimer PT 14.1 Seconds (9.4-12.1) H 11/20/16 00:10 Consult Discharge Plan - Plan Referrals: Alexander Cox DO [Non-Partnered Physician] - (TRIED TO CALL AND MAKE AN APPOINTMENT THE OFFICE IS CLOSED ON FRIDAYS. ) Shabana Llamas DO [Primary Care Provider] - 12/11/16 10:20 am Gerardo Kendrick MD [Partnered Physician] - 12/08/16 9:30 am
[2016-12-06] MEDS: Nicotine 21 MG PATCH.TD24 TD SCH (09:20)
[2016-12-06] MEDS: Sennosides/Docusate Sodium TABLET PO SCH ×2 (09:22→20:10)
[2016-12-06] MEDS: Folic Acid 1 MG TABLET PO SCH (09:23)
[2016-12-06] MEDS: Metoprolol XL (24 HR) Succ 50 MG TAB.ER.24H PO SCH (09:23)
[2016-12-06] MEDS: lamoTRIgine 25 MG TABLET PO SCH ×2 (09:23→20:10)
[2016-12-06] MEDS: Aspirin 81 MG TAB.CHEW PO SCH (09:23)
[2016-12-06] MEDS: amLODIPine 5 MG TABLET PO SCH ×2 (09:23→20:11)
[2016-12-06] MEDS: *HR* Heparin 5,000 UNIT/ML VIAL SQ SCH ×3 (09:24→23:47)
[2016-12-06] MEDS: MetroNIDAZOLE 500 MG/100 ML 500 MG/100 ML BAG IVPB SCH ×3 (09:35→23:48)
[2016-12-07 03:40] LABS: Basophils % 0.2 %; Eosinophils % 0.1 %; Hematocrit 30.9 % (37.5-50.1); Hemoglobin 9.3 g/dL (12.9-16.9); Immature Granulocytes % 1.5 % (0-4); Lymphocytes # 3.9 K/mcL (0.6-4.6); Lymphocytes % 18.9 %; Mean Corpuscular HGB Conc 30.1 g/dL (31.6-35.5); Mean Corpuscular Hemoglobin 28.4 pg (28.0-33.3); Mean Corpuscular Volume 94.5 fL (83.0-100.0); Mean Platelet Volume 10.3 fL (9.4-12.4); Monocytes # 3.2 K/mcL (0.0-1.3); Monocytes % 15.5 %; Platelet Count 226 K/mcL (140-400); Red Blood Count 3.27 M/mcL (4.19-5.50); Red Cell Distribution Width 13.9 % (11.5-14.5); Segmented Neutrophils % 63.8 %
[2016-12-07 03:55] LABS: Albumin/Globulin Ratio 0.5 (1.1-2.2); Bilirubin,Total 0.3 mg/dL (0.2-1.2); Calcium 10.1 mg/dL (8.6-10.8); Globulin 4.3 g/dL (2.4-3.5); Phosphorous 4.6 mg/dL (2.3-4.7); Potassium 3.8 mEq/L (3.5-4.5); Total Protein 6.3 g/dL (6.0-8.3)
[2016-12-07] MEDS: *HR* OxyCODONE Immed Rel 5 MG TABLET PO PRN ×5 (05:17→20:39)
--- NOTE | 2016-12-07 08:34 | Event Note ---
Date of Encounter: 12/07/16 Time of Encounter: 08:34 The patient's renal function continues to improve. Nephrology will sign off. Please call again if needed.
[2016-12-07] MEDS: Nicotine 21 MG PATCH.TD24 TD SCH (08:43)
[2016-12-07] MEDS: MetroNIDAZOLE 500 MG/100 ML 500 MG/100 ML BAG IVPB SCH ×2 (08:44→16:50)
[2016-12-07] MEDS: Sennosides/Docusate Sodium TABLET PO SCH ×2 (09:10→20:35)
[2016-12-07] MEDS: Metoprolol XL (24 HR) Succ 50 MG TAB.ER.24H PO SCH (09:11)
[2016-12-07] MEDS: lamoTRIgine 25 MG TABLET PO SCH ×2 (09:11→20:35)
[2016-12-07] MEDS: Aspirin 81 MG TAB.CHEW PO SCH (09:12)
[2016-12-07] MEDS: *HR* Heparin 5,000 UNIT/ML VIAL SQ SCH ×2 (09:12→16:54)
[2016-12-07] MEDS: Folic Acid 1 MG TABLET PO SCH (09:12)
[2016-12-07] MEDS: amLODIPine 5 MG TABLET PO SCH ×2 (09:12→20:35)
--- NOTE | 2016-12-07 11:34 | Internal Med Progress Note ---
Date of Encounter: 12/07/16 Time of Encounter: 11:26 - Assessment and plan (1) Sepsis Current Visit: Yes Status: Acute Qualifiers: Sepsis type: sepsis due to unspecified organism Qualified Code(s): A41.9 - Sepsis, unspecified organism (2) Acute respiratory failure Current Visit: Yes Status: Acute Qualifiers: Respiratory failure complication: hypoxia Qualified Code(s): J96.01 - Acute respiratory failure with hypoxia (3) Cancer associated pain Current Visit: Yes Status: Chronic (4) Tobacco abuse Current Visit: Yes Status: Chronic (5) Elevated troponin Current Visit: Yes Status: Acute (6) COPD exacerbation Current Visit: No Status: Acute (7) DVT prophylaxis Current Visit: No Status: Acute (8) Hypomagnesemia Current Visit: Yes Status: Acute (9) Acute kidney injury Current Visit: Yes Status: Acute (10) Congestive heart failure Current Visit: Yes Status: Acute Qualifiers: Congestive heart failure type: unspecified congestive heart failure type Qualified Code(s): I50.9 - Heart failure, unspecified (11) Pneumonia due to gram-negative bacteria Current Visit: Yes Status: Acute - Subjective Interval history: Patient is a 56-year-old male with metastatic lung cancer who follows with Dr. Kendrick. Patient presented [facility] ED one day ago ith sepsis secondary to pneumonia. Patient had a CT chest which lung cancer. He had a temperature of 101.3 heart rate of 140,22, leukocytosis with WBC of 17. Patient did receive vancomycin 1, Zosyn 3.375 mg, and Levaquin 750 mg in the ED prior to admission to the ICU. He was continued on Vancomycin 1250mg q12hr, Zosyn 3.375mg q8hr, Levaquin 750 mg daily. Patient was previously hospitalized on 11/04/16 for sepsis secondary to pneumonia. He was discharged on 11/07/16. The patient was seen. He is sitting in bed eating his lunch and does not seem to be uncomfortable. Troponin elevated and will be repeated as well as CBC and CMP. Clinically he denies any chest pain. 11/21 breathing better and has been transferred out of ICU to stepdown unit. Still needs oxygen. Breath sounds still shallow. Continue current treatment as overall breath sounds are improving. Magnesium was low therefore supplemented. On admission patient troponin were mildly elevated of significance. An echocardiogram was done which showed normal cardiac ejection fraction of 55% no wall motion abnormality in LV with a good systolic function mild diastolic dysfunction noted valvular no significant valvular abnormality. 11/22 breathing has started improving. From tomorrow we may start tapering steroids. No other complaint. 11/23 this morning temperature 101.5. Ordered blood culture 2 stat repeat CBC CMP, and chest x-ray. On November 20 Levaquin was stopped by pulmonology. Blood and sputum cultures are negative to this date. Currently patient is on IV vancomycin and Zosyn. Echocardiogram reported yesterday showing ejection fraction in the range of 65-70% no significant valvular abnormality or LV dysfunction or vegetation. It was a transthoracic echo. 12/01 patient care was taken over from hospitalist team . It was noted the patient developed acute renal failure due to perhaps a combination of sepsis and vancomycin toxicity. Nephrology is case. Ultrasound did not show any obstruction. Hayes is still running low-grade temperature. Renal function has started improving and now creatinine is 5.23. 12/02 this morning patient was noted to be quite short of breath unable to lay flat and his JVD was noted to be elevated. We stopped the IV fluid give him a dose of IV Lasix and reexamine in in a few hours his condition improved quite a bit. Unfortunately he did not safe his urine. In any case he seems to be much better though is still high known to JVD detention down there for another dose of IV Lasix given. His renal functions are not improving. Case discussed with infectious disease was concerned that despite change in antibiotics patient fever has returned. I have suggested if he stop all antibiotics recultured him and see what we find out because I am concerned that while she is in hospital for such a long period of time if he is developing any other source or if he has postobstructive pneumonia in which case probably Diego will be warranted. At this time his CBC CMP will be repeated. Continue current treatment. Renal function are not improving much. Discharge planning discussed with the team patient and his family in presence of patient. I think he will be a single home candidate though at this time he wants to go home. Not sure about the nature of his heart failure but I suspect fluid overload due to continuous infusion and poor renal function. Echocardiogram done during this admission showed normal cardiac ejection fraction with diastolic dysfunction 12/03 appears better. Ambulating. Eager to go home. Infectious disease has repeated blood cultures 3 which are pending to the state but previous blood cultures were all negative. Patient has recurrent low-grade temperature for the last 24 hours he is afebrile. A fresh CT chest showed left hilar mass has increased in size. Infectious disease is requesting a bronc and I informed the team leader/research psychologist on-call. We will keep patient nothing by mouth tonight. In other issue is his discharge and palliative care will try to reach oncologist to get an idea what his long-term prognosis of this patient. Once these issues are resolved he can be discharged as his creatinine has started coming down and nephrology is comfortable in sending him home. 12/04 pulmonary consult appreciated. 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 He has developed post-obstruction pneumonia which despite prolonged antibiotic treatment is still causing fever and leukocytosis and overall deterioration of general well-being. Patient has become much weaker during this hospitalization and initially he could ambulate well but now he has become quite unsteady perhaps due to prolonged illness. He needs some support to go to bathroom and at home his bathroom is pretty far from his home therefore will prescribe a bedside commode. He requested oncology to return and further assess him. Palliative care team will also need their opinion. Main question is is patient ready or be eligible for immunotherapy. We will also see what team leader/research psychologist will find on his bronc and if patient can have a stent in the left main stem bronchus which is getting compressed due to worsening tumor load of left hilar mass. Briefly discussed with patient's family. Right now he is lethargic post prolonged and reports are pending. I discussed the case with renal social worker is. Patient was recommended by [facility] for longterm facility however patient's family has declined and they want to take him home and to further rehabilitation at home that were being informed about possible risk and further deterioration of his comorbidit 12/05 patient sputum Gram stain and culture showed Escherichia coli sensitive to cephalosporins but resistant to Levaquin. He has post obstructive pneumonia and yesterday BAL was done still having low-grade temperature but white count is normal. Infectious disease will further assess him. Potassium was low therefore will be supplemented and will be rechecked tomorrow while renal function is slowly improving. Patient will be moved out of to not now 12/06 as noted above patient has left sided post obstructive gram-negative pneumonia and BAL yielded Escherichia coli resistant to Levaquin. Repeat white cell count is 20,000. Levaquin has been a stop and IV Rocephin and Flagyl as started. The 10 to keep an eye on her creatinine which is actually improving and if it is an issue Rocephin can be substituted. Nephrology is on the case. Despite the fact that patient has maintained -1.5 L fluid balance in the last 48 hours as he is almost 12 L positive since admission his creatinine is improving. Acute kidney injury was considered secondary to prevent toxicity. His metastatic lung cancer treatment issues is still not clear but pulmonology has suggested palliative dilatation or stent placement of left bronchus in case if medical treatment fails. Oncology has been requested to return for further comments. In any case it seems like that pulmonology and nephrology are agreeable for discharge and patient will receive palliative care at home as he has declined longterm facility option. Once infectious disease issue is resolved but remains improvement in white count with a plan to discharge him. His potassium is persistently low therefore I I will supplement potassium today however that she will remain that if this is a consistent pattern pattern and we need to supplement potassium on daily basis in which case I will refer this patient to nephrology as he has acute kidney injury. 12/07 as noted above patient has left sided post obstructive gram-negative pneumonia and BAL yielded Escherichia coli resistant to Levaquin. Repeat white cell count is 20,000 and has not improved after changing antibiotics to Levaquin and Flagyl.. Levaquin has been a stop and IV Rocephin and Flagyl as started. We will keep an eye on his creatinine which is actually improving and if it is an issue Rocephin can be substituted. Patient developed acute renal failure due to vancomycin toxicity and sepsis during this admission but now creatinine is improving every day and nephrology has signed out. His metastatic lung cancer treatment issues is still not clear but pulmonology has suggested palliative dilatation or stent placement of left bronchus in case if medical treatment fails. Oncology has been requested to return for further comments. In any case it seems like that pulmonology and nephrology are agreeable for discharge and patient will receive palliative care at home as he has declined longterm facility option. I discuss the possibility of going to [facility] yesterday and he at least has agreed to me therefore I will last renal social worker to further address this issue. Once infectious disease issue is resolved but remains improvement in white count with a plan to discharge him. His potassium is persistently low therefore supplemented when necessary - Constitutional Vitals: Temp Pulse Resp BP Pulse Ox 97.7 F 111 24 99/67 93 12/07/16 11:17 12/07/16 11:17 12/07/16 11:17 12/07/16 11:17 12/07/16 11:17 General appearance: Present: A&O X 3, underweight, answers questions appropriately - Head Head exam: Present: atraumatic, normocephalic - Eye Eye exam: Present: PERRL, conjuntiva pink, sclera anicteric Pupils: Present: PERRL - Neck Neck exam general surgery: Present: supple, trachea midline. Absent: lymphadenopathy - Respiratory Respiratory exam: Present: CTAB. Absent: accessory muscle use, rales, rhonchi, wheezes - Cardiovascular Cardiovascular exam: Present: RRR, +S1, +S2. Absent: diastolic murmur, gallop, rubs, systolic murmur - GI/Abdominal GI/Abdominal exam: Present: normal bowel sounds, soft, no peritoneal signs. Absent: distended, tenderness - Extremities Exam Extremities exam: Present: warm, radial pulses palpable and symetrical. Absent : calf tenderness, cyanotic, pedal edema - Neurological Exam Neurological exam: Present: CN II-XII intact, oriented X3, no focal deficits. Absent: pronater drift, facial droop, speech deficit - Skin Skin exam: Present: dry, intact Internal Medicine: Result - Labs CBC & Chem 7: 12/07/16 03:11 12/07/16 03:11 Labs: Short CBC 12/07/16 Range/Units 03:11 WBC 20.4 H (4.3-11.1) K/mcL Hgb 9.3 L (12.9-16.9) g/dL Hct 30.9 L (37.5-50.1) % Plt Count 226 (140-400) K/mcL Neutrophils # 13.0 H (1.6-8.9) K/mcL BMP 12/07/16 03:11 Sodium 142 Potassium 3.8 Chloride 94 L Carbon Dioxide 37 H BUN 30 H Creatinine 3.04 H Glucose 99 Calcium 10.1 Liver Function 12/07/16 Range/Units 03:11 Total Bilirubin 0.3 (0.2-1.2) mg/dL AST 19 (5-34) Units/L ALT 8 (0-55) Units/L Alkaline Phosphatase 92 (38-126) Units/L Albumin 2.0 L (3.5-5.0) g/dL - ABG Interpretation ABG results: ABG ABG pH 7.44 pH Units (7.32-7.45) 11/19/16 23:45 ABG pCO2 46 mmHg (35-45) H 11/19/16 23:45 ABG pO2 62 mmHg (85-104) L 11/19/16 23:45 ABG O2 Saturation 92 % (95-98) L 11/19/16 23:45 PT/INR, D-dimer PT 14.1 Seconds (9.4-12.1) H 11/20/16 00:10 Consult Discharge Plan - Plan Referrals: Alexander Cox DO [Non-Partnered Physician] - (TRIED TO CALL AND MAKE AN APPOINTMENT THE OFFICE IS CLOSED ON FRIDAYS. ) Shabana Llamas DO [Primary Care Provider] - 12/11/16 10:20 am Gerardo Kendrick MD [Partnered Physician] - 12/08/16 9:30 am
--- NOTE | 2016-12-07 12:45 | Infectious Disease Progress No ---
Date of Encounter: 12/07/16 Time of Encounter: 12:43 - Assessment and Plan (1) Sepsis Current Visit: Yes Status: Acute The patient had three SIRS criteria on admission (leukocytosis, tachycardia, and fever) on admission. He continues to have tachycardia. He has been afebrile, but his WBC is up to 20. Sepsis originally secondary to post-obstructive PNA, but new-onset of leukocytosis of unclear etiology. Blood cultures drawn 11/20/16 x 2 sets, 11/23/16 x 2 sets, and 11/25/16 x 2 sets are negative. Repeat blood cultures x 3 sets drawn 12/02/16 are negative as well. Qualifiers: Sepsis type: sepsis due to unspecified organism Qualified Code(s): A41.9 - Sepsis, unspecified organism (2) Pneumonia Current Visit: Yes Status: Acute Causative organism E. coli. Likely post-obstructive due to large lung mass. CT of the chest 11/25/16 shows unchanged mass-like opacity in the left hilar region with superimposed left upper lobe consolidation. 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 Repeat CT scan of the chest 12/02/16 shows that the left hilar mass appears slightly larger than on the previous study. According to the radiologist, this causes obstruction of the left upper lobe bronchus and narrowing of the lingular bronchus. Airspace disease in the left upper lobe and lingula most likely represent postobstructive pneumonia. There is also increased interstitial markings in the left upper lobe and lingula and to a lesser degree of the left lower lobe likely representing lymphangitic tumor infiltration or hilar lymph node obstruction. Status post bronch 12/04/16. Endo report reviewed. BAL culture grew E. coli. Levaquin discontinued by the primary team and Rocephin started based on culture sensitivities. Continue Rocephin 1 gram IV daily. Stop Flagyl. Duration of treatment depends on the clinical picture. Monitor renal function and dose-adjust antibiotics. Qualifiers: Pneumonia type: due to unspecified organism Laterality: left Lung location: upper lobe of lung Qualified Code(s): J18.1 - Lobar pneumonia, unspecified organism (3) Acute kidney injury Current Visit: Yes Status: Acute Likely secondary to vanc toxicity. Serum creatinine continues to improve. Continue to trend. Avoid nephrotoxins as able and dose-adjust antibiotics. (4) Vancomycin poisoning Current Visit: Yes Status: Resolved Qualifiers: Encounter type: initial encounter Injury intent: accidental or unintentional Qualified Code(s): T36.8X1A - Poisoning by other systemic antibiotics, accidental (unintentional), initial encounter (5) Abdominal pain Current Visit: Yes Status: Acute Etiology not clear, but consider constipation given that the patient has not had a BM since 12/01. Consider KUB to evaluate for possible ileus. Lipase/amylase/LFT's WNL. CT abdomen without acute infectious process x 2. Pain management per the primary and palliative care teams. Qualifiers: Abdominal location: epigastric Qualified Code(s): R10.13 - Epigastric pain (6) CVA (cerebral vascular accident) Current Visit: No Status: Chronic Qualifiers: CVA mechanism: unspecified Qualified Code(s): I63.9 - Cerebral infarction, unspecified (7) Lung cancer Current Visit: Yes Status: Acute Diagnosed 3 months ago. First chemotherapy session was about 09/24/16. Appears to be getting worse with metastases. Hem/Onc following. Await their input regarding the patient's prognosis and if the patient will still be a candidate for chemo once infection resolved. Palliative care has been consulted. Code status discussed and noted. Qualifiers: Laterality: left Lung location: unspecified part of lung Qualified Code(s ): C34.92 - Malignant neoplasm of unspecified part of left bronchus or lung (8) Cancer associated pain Current Visit: Yes Status: Chronic Palliative care consulted. - Subjective Interval history: Patient seen and examined. Weekend notes reviewed. No acute events noted overnight. Patient resting in bed, states he hurts "all over" this morning. Denies fevers or chills. Denies chest pain, but reports continued shortness of breath and cough productive of clear and green/yellow sputum. Per nursing notes , the patient has had some blood-tinged sputum over the weekend. Complains of diffuse abdominal pain and poor appetite, but denies nausea, vomiting, or diarrhea. States he is unsure when his last BM was and he feels constipated. He denies urinary complaints. Infect Dis PN-Objective Data - Labs CBC & Chem 7: 12/07/16 03:11 12/07/16 03:11 Labs: Laboratory Results - last 24 hr 12/07/16 12/07/16 03:11 03:11 WBC 20.4 H RBC 3.27 L Hgb 9.3 L Hct 30.9 L MCV 94.5 MCH 28.4 MCHC 30.1 L RDW 13.9 Plt Count 226 MPV 10.3 Immature Gran % 1.5 Seg Neutrophils % 63.8 Lymphocytes % 18.9 Monocytes % 15.5 Eosinophils % 0.1 Basophils % 0.2 Neutrophils # 13.0 H Lymphocytes # 3.9 Monocytes # 3.2 H Eosinophils # 0.0 Basophils # 0.0 Sodium 142 Potassium 3.8 Chloride 94 L Carbon Dioxide 37 H BUN 30 H Creatinine 3.04 H Est GFR ( Amer) 26 L Est GFR (Non-Af Amer) 21 L BUN/Creatinine Ratio 10 Glucose 99 Calculated Osmolality 300 Calcium 10.1 Phosphorus 4.6 Magnesium 1.0 L Total Bilirubin 0.3 AST 19 ALT 8 Alkaline Phosphatase 92 Serum Total Protein 6.3 Albumin 2.0 L Globulin 4.3 H Albumin/Globulin Ratio 0.5 L Cultures: Cultures 12/04/16 14:26 Respiratory Culture - Final Left Upper Lobe Lung Escherichia coli 12/04/16 14:26 Acid Fast Stain - Final Left Upper Lobe Lung 12/03/16 08:00 Sputum Culture - Final Sputum Escherichia coli 12/04/16 14:26 Gram Stain - Final Left Upper Lobe Lung 12/02/16 16:04 Blood Culture - Preliminary Peripheral Venipuncture No growth. 12/02/16 16:04 Blood Culture - Preliminary Peripheral Venipuncture No growth. 11/25/16 17:06 Blood Culture - Final Peripheral Venipuncture No growth. 11/25/16 17:06 Blood Culture - Final Peripheral Venipuncture No growth. 11/23/16 08:30 Blood Culture - Final Peripheral Venipuncture No growth. 11/23/16 08:39 Blood Culture - Final Peripheral Venipuncture No growth. 11/25/16 19:05 Legionella Antigen - Final Urine,Clean Catch 11/20/16 15:00 Sputum Culture - Final Sputum Serology 12/04/16 11/25/16 Range/Units 14:26 11:30 Fluid Source left upper lobe Fluid Volume 20 mL Fluid Appearance Clear (Clear) Fluid RBC TNP Fld Tot Nucleated Cell TNP Fluid Seg Neutrophil % 92.0 % Fluid Lymphocytes % 5.0 % Fluid Other Cells % 3.0 % Chlamy pneumoniae PCR Not Detected (Not Detect) Adenovirus (PCR) Not Detected (Not Detect) B. pertussis DNA (PCR) Not Detected (Not Detect) Coronavirus OC43 (PCR) Not Detected (Not Detect) Coronavirus HKU1 (PCR) Not Detected (Not Detect) Coronavirus 229E (PCR) Not Detected (Not Detect) Coronavirus NL63 (PCR) Not Detected (Not Detect) Human Metapneumovir PCR Not Detected (Not Detect) Influenza A (H1) PCR Not Detected (Not Detect) Influ A (H1N1/09) PCR Not Detected (Not Detect) Influenza A (H3) PCR Not Detected (Not Detect) Influenza A Untype (PCR) Not Detected (Not Detect) Influenza Type B (PCR) Not Detected (Not Detect) M.pneumoniae DNA (PCR) Not Detected (Not Detect) Parainfluenza 1 (PCR) Not Detected (Not Detect) Parainfluenza 2 (PCR) Not Detected (Not Detect) Parainfluenza 3 (PCR) Not Detected (Not Detect) Parainfluenza 4 (PCR) Not Detected (Not Detect) RSV (PCR) Not Detected (Not Detect) Entero/Rhino (PCR) Not Detected (Not Detect) Exam - Constitutional Vitals: Temp Pulse Resp BP Pulse Ox 97.7 F 111 24 99/67 93 12/07/16 11:17 12/07/16 11:17 12/07/16 11:17 12/07/16 11:17 12/07/16 11:17 General appearance: average body habitus, cooperative, no acute distress - Head Head exam: Present: atraumatic, normal inspection, normocephalic - Eye Eye exam: Present: EOMI, normal appearance, PERRL Pupils: Present: normal accommodation - ENT ENT exam: Present: mucous membranes moist - Neck Neck exam: Present: normal inspection - Respiratory Respiratory exam: Present: decreased breath sounds (bilateral bases), wheezes ( Fine expiratory RUL). Absent: rales, respiratory distress, rhonchi - Cardiovascular Cardiovascular exam: Present: +S1, +S2, tachycardia. Absent: irregular rhythm - GI/Abdominal GI/Abdominal exam: Present: distended, firm, normal bowel sounds, tenderness ( generalized). Absent: soft - Extremities Exam Extremities exam: Present: normal inspection. Absent: joint swelling, pedal edema, tenderness - Neurological Exam Neurological exam: Present: alert, oriented X3, no focal deficits - Psychiatric Psychiatric exam: Present: normal affect, normal mood - Skin Skin exam: Present: dry, intact, normal color, warm Consult Discharge Plan - Plan Referrals: Alexander Cox DO [Non-Partnered Physician] - (TRIED TO CALL AND MAKE AN APPOINTMENT THE OFFICE IS CLOSED ON FRIDAYS. ) Shabana Llamas DO [Primary Care Provider] - 12/11/16 10:20 am Gerardo Kendrick MD [Partnered Physician] - 12/08/16 9:30 am - Attending Attestation I examined this patient and my medical decision-making was reviewed with the MICROCOMPUTER TECHNICIAN/PA/Advanced Practice Nurse/Resident Physician. I agree with the documented findings, disposition and treatment plan as described except to the extent set forth below.
--- NOTE | 2016-12-07 13:06 | Pulmonology Progress Note ---
Date of Encounter: 12/07/16 Time of Encounter: 07:50 Assessment and Plan (1) Pneumonia Current Visit: Yes Status: Acute Patient with postobstructive pneumonia and discussed with him about possible repeating bronchoscopy for therapeutic reason, however patient is in pain at this point and he received pain medication and I do not feel he is understanding the procedure which can be done as outpatient also. I will discuss with him some other time. Qualifiers: Pneumonia type: due to unspecified organism Laterality: left Lung location: upper lobe of lung Qualified Code(s): J18.1 - Lobar pneumonia, unspecified organism (2) Lung cancer Current Visit: Yes Status: Acute Qualifiers: Laterality: left Lung location: unspecified part of lung Qualified Code(s ): C34.92 - Malignant neoplasm of unspecified part of left bronchus or lung Subjective Principal diagnosis: Pneumonia Interval history: Patient complaining of generalized pain, but denies any problem with breathing Objective PUL Vital signs: Last Vital Signs Temp 97.7 F 12/07/16 11:17 Pulse 111 12/07/16 11:17 Resp 24 12/07/16 11:17 BP 99/67 12/07/16 11:17 Pulse Ox 93 12/07/16 11:17 General appearance: appears uncomfortable ENT: oropharynx dry Neck: supple Auscultation: bilateral: rhonchi Percussion: bilateral: not dull Cardiovascular: regular rate and rhythm Gastrointestinal: normoactive bowel sounds normal mental status depressed Results - Laboratory Findings CBC and BMP: 12/07/16 03:11 12/07/16 03:11 ABG ABG pH 7.44 pH Units (7.32-7.45) 11/19/16 23:45 ABG pCO2 46 mmHg (35-45) H 11/19/16 23:45 ABG pO2 62 mmHg (85-104) L 11/19/16 23:45 ABG O2 Saturation 92 % (95-98) L 11/19/16 23:45 PT/INR, D-dimer PT 14.1 Seconds (9.4-12.1) H 11/20/16 00:10 Abnormal lab findings: Abnormal lab results WBC 20.4 K/mcL (4.3-11.1) H 12/07/16 03:11 RBC 3.27 M/mcL (4.19-5.50) L 12/07/16 03:11 Hgb 9.3 g/dL (12.9-16.9) L 12/07/16 03:11 Hct 30.9 % (37.5-50.1) L 12/07/16 03:11 MCHC 30.1 g/dL (31.6-35.5) L 12/07/16 03:11 Neutrophils # 13.0 K/mcL (1.6-8.9) H 12/07/16 03:11 Monocytes # 3.2 K/mcL (0.0-1.3) H 12/07/16 03:11 Nucleated RBCs/100 WBC 0.1 /100 WBC (0) H 12/06/16 06:04 PT 14.1 Seconds (9.4-12.1) H 11/20/16 00:10 APTT 24.9 Seconds (26.0-36.0) L 11/20/16 00:10 ABG pCO2 46 mmHg (35-45) H 11/19/16 23:45 ABG pO2 62 mmHg (85-104) L 11/19/16 23:45 ABG HCO3 31.2 mEQ/L (21-27) H 11/19/16 23:45 ABG Total CO2 32.6 mEq/L (20-26) H 11/19/16 23:45 ABG O2 Saturation 92 % (95-98) L 11/19/16 23:45 ABG Base Excess 6.1 mEq/L (-2.0 to 3.0) H 11/19/16 23:45 Chloride 94 mEq/L (98-109) L 12/07/16 03:11 Carbon Dioxide 37 mEq/L (19-29) H 12/07/16 03:11 BUN 30 mg/dL (8-26) H 12/07/16 03:11 Creatinine 3.04 mg/dL (0.72-1.25) H 12/07/16 03:11 Est GFR ( Amer) 26 (> 60) L 12/07/16 03:11 Est GFR (Non-Af Amer) 21 (> 60) L 12/07/16 03:11 POC Glucose 97 (58-89) H 12/04/16 11:47 Magnesium 1.0 mg/dL (1.6-2.6) L 12/07/16 03:11 Iron 14 mcg/dL (65-175) L 11/25/16 09:45 % Saturation 10 % (20-55) L 11/25/16 09:45 Transferrin 103 mg/dL (174-364) L 11/25/16 09:45 Troponin I 0.05 ng/mL (0-0.03) H* 11/20/16 16:26 Albumin 2.0 g/dL (3.5-5.0) L 12/07/16 03:11 Globulin 4.3 g/dL (2.4-3.5) H 12/07/16 03:11 Albumin/Globulin Ratio 0.5 (1.1-2.2) L 12/07/16 03:11 Amylase 18 Units/L (25-125) L 11/25/16 16:04 Vitamin B12 865 pg/mL (213-816) H 11/25/16 09:45 Procalcitonin 0.87 ng/mL (<=0.10) H 11/25/16 16:04 Vancomycin Trough 71.6 mcg/mL (10-20) H* 11/24/16 03:25 - Microbiology Findings Microbiology Findings: Microbiology, Last 48 Hours 12/04/16 14:26 Respiratory Culture - Final Left Upper Lobe Lung Escherichia coli 12/04/16 14:26 Acid Fast Stain - Final Left Upper Lobe Lung - Clinical Findings Intake & Output: Intake & Output 12/06/16 12/07/16 12/07/16 23:59 07:59 15:59 Intake Total 1100 / 1100 100 / 100 300 / 300 Balance 1100 / 1100 100 / 100 300 / 300 Weight 67.8 kg Consult Discharge Plan - Plan Referrals: Alexander Cox DO [Non-Partnered Physician] - (TRIED TO CALL AND MAKE AN APPOINTMENT THE OFFICE IS CLOSED ON FRIDAYS. ) Shabana Llamas DO [Primary Care Provider] - 12/11/16 10:20 am Gerardo Kendrick MD [Partnered Physician] - 12/08/16 9:30 am
--- NOTE | 2016-12-07 13:44 | Palliative Progress Note ---
Date of Encounter: 12/07/16 Time of Encounter: 13:30 - Assessment and plan (1) Cancer associated pain Current Visit: Yes Status: Chronic Assessment and plan: Patient complains of constant ache to generalized body. Rates 4/10 and states that current regimen doesn't hold him for long. Change dose to every 2 hours PRN. He verbalizes that he waits to long before requesting medication. Will continue to follow. (2) Counseling regarding advanced directives and goals of care Current Visit: Yes Status: Acute Assessment and plan: Patient desires to go home at [place] and stay with sister. He reports that he needs to discuss this further with her this evening. He states that he is weak and needs therapy at home as well. PT and OT has seen patient and recommends therapy. Patient ambulated with walker. Patient DNRCC - A. I discussed desire to be on breathing machine and he states that he desires treatment. Patient goal is returm home HH services. SS involved in case and working on home set-up. Oncology to f/u this evening. Will cont to follow. (3) Therapeutic opioid induced constipation Current Visit: Yes Status: Acute Assessment and plan: Last BM 12/01/16. Will give dose of Miralax now. Patient reports feeling full and the need to pass stool. Appetite fair. Will monitor I&O. (4) Pneumonia Current Visit: Yes Status: Acute Qualifiers: Pneumonia type: due to unspecified organism Laterality: left Lung location: upper lobe of lung Qualified Code(s): J18.1 - Lobar pneumonia, unspecified organism (5) Lung cancer Current Visit: Yes Status: Acute Qualifiers: Laterality: left Lung location: unspecified part of lung Qualified Code(s ): C34.92 - Malignant neoplasm of unspecified part of left bronchus or lung - Time Spent With Patient Total time spent is greater than 50% in coordination of care (as documented) at patient's floor/unit and/or counseling patient: 25 - 35 minutes - Subjective Interval history: Patient sitting up in bed. C/O generalized aching pain. Rates pain 4/10 and intensity of constant ache. - Constitutional Vitals: Abnormal lab results WBC 20.4 K/mcL (4.3-11.1) H 12/07/16 03:11 RBC 3.27 M/mcL (4.19-5.50) L 12/07/16 03:11 Hgb 9.3 g/dL (12.9-16.9) L 12/07/16 03:11 Hct 30.9 % (37.5-50.1) L 12/07/16 03:11 MCHC 30.1 g/dL (31.6-35.5) L 12/07/16 03:11 Neutrophils # 13.0 K/mcL (1.6-8.9) H 12/07/16 03:11 Monocytes # 3.2 K/mcL (0.0-1.3) H 12/07/16 03:11 Nucleated RBCs/100 WBC 0.1 /100 WBC (0) H 12/06/16 06:04 PT 14.1 Seconds (9.4-12.1) H 11/20/16 00:10 APTT 24.9 Seconds (26.0-36.0) L 11/20/16 00:10 ABG pCO2 46 mmHg (35-45) H 11/19/16 23:45 ABG pO2 62 mmHg (85-104) L 11/19/16 23:45 ABG HCO3 31.2 mEQ/L (21-27) H 11/19/16 23:45 ABG Total CO2 32.6 mEq/L (20-26) H 11/19/16 23:45 ABG O2 Saturation 92 % (95-98) L 11/19/16 23:45 ABG Base Excess 6.1 mEq/L (-2.0 to 3.0) H 11/19/16 23:45 Chloride 94 mEq/L (98-109) L 12/07/16 03:11 Carbon Dioxide 37 mEq/L (19-29) H 12/07/16 03:11 BUN 30 mg/dL (8-26) H 12/07/16 03:11 Creatinine 3.04 mg/dL (0.72-1.25) H 12/07/16 03:11 Est GFR ( Amer) 26 (> 60) L 12/07/16 03:11 Est GFR (Non-Af Amer) 21 (> 60) L 12/07/16 03:11 POC Glucose 97 (58-89) H 12/04/16 11:47 Magnesium 1.0 mg/dL (1.6-2.6) L 12/07/16 03:11 Iron 14 mcg/dL (65-175) L 11/25/16 09:45 % Saturation 10 % (20-55) L 11/25/16 09:45 Transferrin 103 mg/dL (174-364) L 11/25/16 09:45 Troponin I 0.05 ng/mL (0-0.03) H* 11/20/16 16:26 Albumin 2.0 g/dL (3.5-5.0) L 12/07/16 03:11 Globulin 4.3 g/dL (2.4-3.5) H 12/07/16 03:11 Albumin/Globulin Ratio 0.5 (1.1-2.2) L 12/07/16 03:11 Amylase 18 Units/L (25-125) L 11/25/16 16:04 Vitamin B12 865 pg/mL (213-816) H 11/25/16 09:45 Procalcitonin 0.87 ng/mL (<=0.10) H 11/25/16 16:04 Vancomycin Trough 71.6 mcg/mL (10-20) H* 11/24/16 03:25 - Head Head exam: Present: atraumatic, normal inspection, normocephalic - Eye Eye exam: Present: PERRL Pupils: Present: PERRL - ENT ENT exam: Present: mucous membranes moist - Neck Neck exam: Present: full ROM - Respiratory Respiratory exam: Present: decreased breath sounds - Expanded Respiratory Exam Location: decreased breath sounds: Left, Right, Lower - Cardiovascular Cardiovascular exam: Present: RRR, +S1, +S2 - Expanded Cardiovascular Exam Peripheral pulses: 1+: Femoral (L) PM, Femoral (R) PM, Posterior Tibialis (L), Posterior Tibialis (R), 2+: Carotid (L) PM, Carotid (R) PM, Radial (L), Radial ( R), Dorsalis Pedis (L) PM, Dorsalis Pedis (R) PM - GI/Abdominal GI/Abdominal exam: Present: normal bowel sounds, soft - Rectal Rectal exam: Present: deferred - Neurological Exam Neurological exam: Present: alert, oriented X3 - Psychiatric Psychiatric exam: Present: normal affect Palliative Quality Palliative Quality: Screen for Code Status: Yes, Screen for Goals of Care: Yes, Screen for Pain: Yes, If Pain Regimen Started, Initiate Bowel Regimen: Yes, Screen for Nausea/Vomitting: Yes Code Status: 11/20/16 03:31 Resuscitation Status: Active [RES] Routine Comment: Resuscitation Status: Full Code Resuscitation Status: Active [RES] Routine Comment: Resuscitation Status: DNR-Comfort Care-Arrest - Labs CBC & Chem 7: 12/07/16 03:11 12/07/16 03:11 Labs: Laboratory Results - last 24 hr 12/07/16 12/07/16 03:11 03:11 WBC 20.4 H RBC 3.27 L Hgb 9.3 L Hct 30.9 L MCV 94.5 MCH 28.4 MCHC 30.1 L RDW 13.9 Plt Count 226 MPV 10.3 Immature Gran % 1.5 Seg Neutrophils % 63.8 Lymphocytes % 18.9 Monocytes % 15.5 Eosinophils % 0.1 Basophils % 0.2 Neutrophils # 13.0 H Lymphocytes # 3.9 Monocytes # 3.2 H Eosinophils # 0.0 Basophils # 0.0 Sodium 142 Potassium 3.8 Chloride 94 L Carbon Dioxide 37 H BUN 30 H Creatinine 3.04 H Est GFR ( Amer) 26 L Est GFR (Non-Af Amer) 21 L BUN/Creatinine Ratio 10 Glucose 99 Calculated Osmolality 300 Calcium 10.1 Phosphorus 4.6 Magnesium 1.0 L Total Bilirubin 0.3 AST 19 ALT 8 Alkaline Phosphatase 92 Serum Total Protein 6.3 Albumin 2.0 L Globulin 4.3 H Albumin/Globulin Ratio 0.5 L - ABG Interpretation ABG results: ABG ABG pH 7.44 pH Units (7.32-7.45) 11/19/16 23:45 ABG pCO2 46 mmHg (35-45) H 11/19/16 23:45 ABG pO2 62 mmHg (85-104) L 11/19/16 23:45 ABG O2 Saturation 92 % (95-98) L 11/19/16 23:45 PT/INR, D-dimer PT 14.1 Seconds (9.4-12.1) H 11/20/16 00:10 Consult Discharge Plan - Plan Referrals: Alexander Cox DO [Non-Partnered Physician] - (TRIED TO CALL AND MAKE AN APPOINTMENT THE OFFICE IS CLOSED ON FRIDAYS. ) Shabana Llamas DO [Primary Care Provider] - 12/11/16 10:20 am Gerardo Kendrick MD [Partnered Physician] - 12/08/16 9:30 am
[2016-12-07] MEDS: Acetaminophen 325 MG TABLET PO PRN (16:49)
[2016-12-07] MEDS: Ringers Solution, Lactated 1,000 ML IVC SCH (20:40)
[2016-12-08] MEDS: *HR* Heparin 5,000 UNIT/ML VIAL SQ SCH ×3 (00:04→15:49)
[2016-12-08] MEDS: MetroNIDAZOLE 500 MG/100 ML 500 MG/100 ML BAG IVPB SCH ×2 (00:05→08:08)
[2016-12-08] MEDS: *HR* OxyCODONE Immed Rel 5 MG TABLET PO PRN ×5 (00:05→19:41)
[2016-12-08 05:53] LABS: Albumin/Globulin Ratio 0.5 (1.1-2.2); Bilirubin,Total 0.3 mg/dL (0.2-1.2); Calcium 10.3 mg/dL (8.6-10.8); Globulin 4.2 g/dL (2.4-3.5); Phosphorous 4.1 mg/dL (2.3-4.7); Potassium 3.4 mEq/L (3.5-4.5); Total Protein 6.2 g/dL (6.0-8.3)
[2016-12-08 05:59] LABS: Basophils % 0.2 %; Eosinophils % 0.2 %; Hematocrit 33.8 % (37.5-50.1); Hemoglobin 10.4 g/dL (12.9-16.9); Immature Granulocytes % 1.9 % (0-4); Lymphocytes % 10.9 %; Mean Corpuscular HGB Conc 30.8 g/dL (31.6-35.5); Mean Corpuscular Hemoglobin 29.3 pg (28.0-33.3); Mean Corpuscular Volume 95.2 fL (83.0-100.0); Mean Platelet Volume 10.8 fL (9.4-12.4); Monocytes # 2.3 K/mcL (0.0-1.3); Monocytes % 12.5 %; Neutrophils # 13.6 K/mcL (1.6-8.9); Platelet Count 204 K/mcL (140-400); Red Blood Count 3.55 M/mcL (4.19-5.50); Red Cell Distribution Width 13.8 % (11.5-14.5); Segmented Neutrophils % 74.3 %
[2016-12-08] MEDS: Nicotine 21 MG PATCH.TD24 TD SCH (08:04)
[2016-12-08] MEDS: Sennosides/Docusate Sodium TABLET PO SCH ×2 (08:05→21:59)
[2016-12-08] MEDS: Acetaminophen 325 MG TABLET PO PRN (08:05)
[2016-12-08] MEDS: Metoprolol XL (24 HR) Succ 50 MG TAB.ER.24H PO SCH (08:06)
[2016-12-08] MEDS: Folic Acid 1 MG TABLET PO SCH (08:06)
[2016-12-08] MEDS: Aspirin 81 MG TAB.CHEW PO SCH (08:07)
[2016-12-08] MEDS: lamoTRIgine 25 MG TABLET PO SCH ×2 (08:07→21:59)
[2016-12-08] MEDS: amLODIPine 5 MG TABLET PO SCH ×2 (08:07→21:59)
[2016-12-08] MEDS: Ondansetron 4 MG/2 ML VIAL IVP PRN (08:08)
--- NOTE | 2016-12-08 09:08 | Internal Med Progress Note ---
<Bola Paul - Last Filed: 12/08/16 13:48> Date of Encounter: 12/08/16 Time of Encounter: 08:30 - Assessment and plan (1) Primary lung cancer with metastasis from lung to other site Current Visit: Yes Status: Chronic Assessment and plan: Adenocarcinoma with Brain mets. Patient needs therapy at home. PT and OT has seen patient and recommends therapy. Patient DNRCC - A. Patient goal is retur home HH services. SS involved in case and working on home set-up. Oncology to discuss immunotherapy treatment. Will cont to follow. Qualifiers: Laterality: unspecified laterality Qualified Code(s): C34.90 - Malignant neoplasm of unspecified part of unspecified bronchus or lung (2) Postobstructive pneumonia Current Visit: Yes Status: Acute Assessment and plan: See above. Plan bedside swallow study. Continue Rocephin (Day 3) and supplement oxygen (3) Decreased appetite Current Visit: Yes Status: Acute Assessment and plan: Consider appetite stimulation, will discuss with palliative care. (4) Acute and chronic respiratory failure Current Visit: Yes Status: Acute Assessment and plan: Patient currently on 4 L on oxygen via nasal cannula. Baseline is 2 L of oxygen at home. (5) Acute kidney injury Current Visit: Yes Status: Acute Assessment and plan: Improved. Suspect due to multiple factors including sepsis, vancomycin perhaps. Nephrology on case. Renal function improving gradually and nephrology has recommended discharge (6) Lung cancer Current Visit: Yes Status: Acute Assessment and plan: reports that he has received one cycle of chemotherapy so far. has possible mets in liver as well as adrenals appreciate oncology recommendations, patient wishes to f/u with oncology after dc to discuss immunotherapy treatment options. Qualifiers: Laterality: left Lung location: unspecified part of lung Qualified Code(s ): C34.92 - Malignant neoplasm of unspecified part of left bronchus or lung (7) Sepsis Current Visit: Yes Status: Acute Assessment and plan: Perhaps related to gram-negative sepsis secondary to gram-negative pneumonia. Continue current Rocephin treatment Qualifiers: Sepsis type: sepsis due to unspecified organism Qualified Code(s): A41.9 - Sepsis, unspecified organism (8) Therapeutic opioid induced constipation Current Visit: Yes Status: Acute Assessment and plan: Continue laxatives (9) Cancer associated pain Current Visit: Yes Status: Chronic Assessment and plan: Patient is on fentanyl and oxycodone and probably would require heavy pain medication as outpatient to he has been referred to palliative care (10) CVA (cerebral vascular accident) Current Visit: No Status: Chronic Assessment and plan: Continue to monitor. Qualifiers: CVA mechanism: unspecified Qualified Code(s): I63.9 - Cerebral infarction, unspecified (11) DVT prophylaxis Current Visit: No Status: Acute Assessment and plan: Heparin and SCDs Patient seen and examined, case discussed with him and agreed upon with Dr. Redding - Time Spent With Patient 25 - 35 minutes - Subjective Interval history: Patient is a 56-year-old male with metastatic lung cancer who follows with Dr. Kendrick. Patient presented [facility] ED one day ago ith sepsis secondary to pneumonia. Patient had a CT chest which lung cancer. He had a temperature of 101.3 heart rate of 140,22, leukocytosis with WBC of 17. Patient did receive vancomycin 1, Zosyn 3.375 mg, and Levaquin 750 mg in the ED prior to admission to the ICU. He was continued on Vancomycin 1250mg q12hr, Zosyn 3.375mg q8hr, Levaquin 750 mg daily. Patient was previously hospitalized on 11/04/16 for sepsis secondary to pneumonia. He was discharged on 11/07/16. The patient was seen. He is sitting in bed eating his lunch and does not seem to be uncomfortable. Troponin elevated and will be repeated as well as CBC and CMP. Clinically he denies any chest pain. 11/21 breathing better and has been transferred out of ICU to stepdown unit. Still needs oxygen. Breath sounds still shallow. Continue current treatment as overall breath sounds are improving. Magnesium was low therefore supplemented. On admission patient troponin were mildly elevated of significance. An echocardiogram was done which showed normal cardiac ejection fraction of 55% no wall motion abnormality in LV with a good systolic function mild diastolic dysfunction noted valvular no significant valvular abnormality. 11/22 breathing has started improving. From tomorrow we may start tapering steroids. No other complaint. 11/23 this morning temperature 101.5. Ordered blood culture 2 stat repeat CBC CMP, and chest x-ray. On November 20 Levaquin was stopped by pulmonology. Blood and sputum cultures are negative to this date. Currently patient is on IV vancomycin and Zosyn. Echocardiogram reported yesterday showing ejection fraction in the range of 65-70% no significant valvular abnormality or LV dysfunction or vegetation. It was a transthoracic echo. 12/01 patient care was taken over from hospitalist team . It was noted the patient developed acute renal failure due to perhaps a combination of sepsis and vancomycin toxicity. Nephrology is case. Ultrasound did not show any obstruction. Hayes is still running low-grade temperature. Renal function has started improving and now creatinine is 5.23. 12/02 this morning patient was noted to be quite short of breath unable to lay flat and his JVD was noted to be elevated. We stopped the IV fluid give him a dose of IV Lasix and reexamine in in a few hours his condition improved quite a bit. Unfortunately he did not safe his urine. In any case he seems to be much better though is still high known to [facility] for another dose of IV Lasix given. His renal functions are not improving. Case discussed with infectious disease was concerned that despite change in antibiotics patient fever has returned. I have suggested if he stop all antibiotics recultured him and see what we find out because I am concerned that while she is in hospital for such a long period of time if he is developing any other source or if he has postobstructive pneumonia in which case probably Diego will be warranted. At this time his CBC CMP will be repeated. Continue current treatment. Renal function are not improving much. Discharge planning discussed with the team patient and his family in presence of patient. I think he will be a single home candidate though at this time he wants to go home. Not sure about the nature of his heart failure but I suspect fluid overload due to continuous infusion and poor renal function. Echocardiogram done during this admission showed normal cardiac ejection fraction with diastolic dysfunction 7/6 appears better. Ambulating. Eager to go home. Infectious disease has repeated blood cultures 3 which are pending to the state but previous blood cultures were all negative. Patient has recurrent low-grade temperature for the last 24 hours he is afebrile. A fresh CT chest showed left hilar mass has increased in size. Infectious disease is requesting a [facility] and I informed the hand silvering supervisor on-call. We will keep patient nothing by mouth tonight. In other issue is his discharge and palliative care will try to reach oncologist to get an idea what his long-term prognosis of this patient. Once these issues are resolved he can be discharged as his creatinine has started coming down and nephrology is comfortable in sending him home. 12/04 pulmonary consult appreciated. 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 He has developed post-obstruction pneumonia which despite prolonged antibiotic treatment is still causing fever and leukocytosis and overall deterioration of general well-being. Patient has become much weaker during this hospitalization and initially he could ambulate well but now he has become quite unsteady perhaps due to prolonged illness. He needs some support to go to bathroom and at home his bathroom is pretty far from his home therefore will prescribe a bedside commode. He requested oncology to return and further assess him. Palliative care team will also need their opinion. Main question is is patient ready or be eligible for immunotherapy. We will also see what hand silvering supervisor will find on his bron and if patient can have a stent in the left main stem bronchus which is getting compressed due to worsening tumor load of left hilar mass. Briefly discussed with patient's family. Right now he is lethargic post prolonged and reports are pending. I discussed the case with social work program coordinator is. Patient was recommended by PTOT for jail facility however patient's family has declined and they want to take him home and to further rehabilitation at home that were being informed about possible risk and further deterioration of his comorbidit 12/05 patient sputum Gram stain and culture showed Escherichia coli sensitive to cephalosporins but resistant to Levaquin. He has post obstructive pneumonia and yesterday BAL was done still having low-grade temperature but white count is normal. Infectious disease will further assess him. Potassium was low therefore will be supplemented and will be rechecked tomorrow while renal function is slowly improving. Patient will be moved out of to not now 12/06 as noted above patient has left sided post obstructive gram-negative pneumonia and BAL yielded Escherichia coli resistant to Levaquin. Repeat white cell count is 20,000. Levaquin has been a stop and IV Rocephin and Flagyl as started. The 10 to keep an eye on her creatinine which is actually improving and if it is an issue Rocephin can be substituted. Nephrology is on the case. Despite the fact that patient has maintained -1.5 L fluid balance in the last 48 hours as he is almost 12 L positive since admission his creatinine is improving. Acute kidney injury was considered secondary to prevent toxicity. His metastatic lung cancer treatment issues is still not clear but pulmonology has suggested palliative dilatation or stent placement of left bronchus in case if medical treatment fails. Oncology has been requested to return for further comments. In any case it seems like that pulmonology and nephrology are agreeable for discharge and patient will receive palliative care at home as he has declined jail facility option. Once infectious disease issue is resolved but remains improvement in white count with a plan to discharge him. His potassium is persistently low therefore I I will supplement potassium today however that she will remain that if this is a consistent pattern pattern and we need to supplement potassium on daily basis in which case I will refer this patient to nephrology as he has acute kidney injury. 12/07 as noted above patient has left sided post obstructive gram-negative pneumonia and BAL yielded Escherichia coli resistant to Levaquin. Repeat white cell count is 20,000 and has not improved after changing antibiotics to Levaquin and Flagyl.. Levaquin has been a stop and IV Rocephin and Flagyl as started. We will keep an eye on his creatinine which is actually improving and if it is an issue Rocephin can be substituted. Patient developed acute renal failure due to vancomycin toxicity and sepsis during this admission but now creatinine is improving every day and nephrology has signed out. His metastatic lung cancer treatment issues is still not clear but pulmonology has suggested palliative dilatation or stent placement of left bronchus in case if medical treatment fails. Oncology has been requested to return for further comments. In any case it seems like that pulmonology and nephrology are agreeable for discharge and patient will receive palliative care at home as he has declined jail facility option. I [facility] and he at least has agreed to me therefore I will last social work program coordinator to further address this issue. Once infectious disease issue is resolved but remains improvement in white count with a plan to discharge him. His potassium is persistently low therefore supplemented when necessary 12/08 Chart reviewed. No acute events noted overnight. Patient resting in bed on 4L supplemental O2, states his insides hurt this morning, and he has no appetite for the past couple of days. Pt denies worsening SOB, fevers, chills, chest pain, nausea, vomiting, diarrhea, or dysuria. States he is unsure when his last BM was and he feels constipated. Awaiting further recommendation from palliative care regarding appetite stimulation and constipation. Patient is agreeable with outpatient immunotherapy per oncology recommendation. Sister is at bedside and inquiring about discharge plan. - Constitutional Vitals: Temp Pulse Resp BP Pulse Ox 100.1 F H 126 28 103/69 97 12/08/16 07:30 12/08/16 07:30 12/08/16 07:30 12/08/16 07:30 12/08/16 07:30 General appearance: Present: cachectic, cooperative, A&O X 3, pleasant, underweight, answers questions appropriately - Head Head exam: Present: atraumatic, normocephalic - Eye Eye exam: Present: PERRL, conjuntiva pink, sclera anicteric Pupils: Present: PERRL - ENT ENT exam: Present: mucous membranes dry, normal oropharynx. Absent: mucous membranes moist - Neck Neck exam general surgery: Present: supple, trachea midline - Respiratory Respiratory exam: Present: rhonchi (R > L) Additional comments: Symmetric expansion, good air movement bilaterally - Cardiovascular Cardiovascular exam: Present: RRR, +S1, +S2. Absent: diastolic murmur, gallop, rubs, systolic murmur Additional comments: Port-a-cath right chest - GI/Abdominal GI/Abdominal exam: Present: normal bowel sounds, soft, no peritoneal signs. Absent: distended, tenderness - Extremities Exam Extremities exam: Present: warm, radial pulses palpable and symetrical. Absent : calf tenderness, cyanotic, pedal edema - Neurological Exam Neurological exam: Present: CN II-XII intact, oriented X3, no focal deficits. Absent: pronater drift, facial droop, speech deficit - Psychiatric Psychiatric exam: Present: flat affect, normal mood - Skin Skin exam: Present: dry, intact Internal Medicine: Result - Labs CBC & Chem 7: 12/08/16 04:57 12/08/16 04:57 Labs: Short CBC 12/08/16 Range/Units 04:57 WBC 18.3 H (4.3-11.1) K/mcL Hgb 10.4 L (12.9-16.9) g/dL Hct 33.8 L (37.5-50.1) % Plt Count 204 (140-400) K/mcL Neutrophils # 13.6 H (1.6-8.9) K/mcL BMP 12/08/16 04:57 Sodium 143 Potassium 3.4 L Chloride 95 L Carbon Dioxide 36 H BUN 28 H Creatinine 2.53 H Glucose 107 H Calcium 10.3 Liver Function 12/08/16 Range/Units 04:57 Total Bilirubin 0.3 (0.2-1.2) mg/dL AST 21 (5-34) Units/L ALT 9 (0-55) Units/L Alkaline Phosphatase 110 (38-126) Units/L Albumin 2.0 L (3.5-5.0) g/dL - ABG Interpretation ABG results: ABG ABG pH 7.44 pH Units (7.32-7.45) 11/19/16 23:45 ABG pCO2 46 mmHg (35-45) H 11/19/16 23:45 ABG pO2 62 mmHg (85-104) L 11/19/16 23:45 ABG O2 Saturation 92 % (95-98) L 11/19/16 23:45 PT/INR, D-dimer PT 14.1 Seconds (9.4-12.1) H 11/20/16 00:10 Consult Discharge Plan - Plan Referrals: Alexander Cox DO [Non-Partnered Physician] - (TRIED TO CALL AND MAKE AN APPOINTMENT THE OFFICE IS CLOSED ON FRIDAYS. ) Shabana Llamas DO [Primary Care Provider] - 12/11/16 10:20 am Gerardo Kendrick MD [Partnered Physician] - 12/08/16 9:30 am <Bhanu Aquino H - Last Filed: 12/08/16 14:02> Date of Encounter: 12/08/16 - Constitutional Vitals: Temp Pulse Resp BP Pulse Ox 97.9 F 105 20 97/63 97 12/08/16 11:30 12/08/16 11:30 12/08/16 11:30 12/08/16 11:30 12/08/16 11:30 Internal Medicine: Result - Labs CBC & Chem 7: 12/08/16 04:57 12/08/16 04:57 Labs: Short CBC 12/08/16 Range/Units 04:57 WBC 18.3 H (4.3-11.1) K/mcL Hgb 10.4 L (12.9-16.9) g/dL Hct 33.8 L (37.5-50.1) % Plt Count 204 (140-400) K/mcL Neutrophils # 13.6 H (1.6-8.9) K/mcL BMP 12/08/16 04:57 Sodium 143 Potassium 3.4 L Chloride 95 L Carbon Dioxide 36 H BUN 28 H Creatinine 2.53 H Glucose 107 H Calcium 10.3 Liver Function 12/08/16 Range/Units 04:57 Total Bilirubin 0.3 (0.2-1.2) mg/dL AST 21 (5-34) Units/L ALT 9 (0-55) Units/L Alkaline Phosphatase 110 (38-126) Units/L Albumin 2.0 L (3.5-5.0) g/dL - ABG Interpretation ABG results: ABG ABG pH 7.44 pH Units (7.32-7.45) 11/19/16 23:45 ABG pCO2 46 mmHg (35-45) H 11/19/16 23:45 ABG pO2 62 mmHg (85-104) L 11/19/16 23:45 ABG O2 Saturation 92 % (95-98) L 11/19/16 23:45 PT/INR, D-dimer PT 14.1 Seconds (9.4-12.1) H 11/20/16 00:10 - Attending Attestation Acute on chronic hypoxic hypercapnic respiratory failure secondary to sepsis due to postobstructive pneumonia/gram-negative pneumonia/Escherichia coli isolated History of poorly differentiated adenocarcinoma of the lung/large cells Has completed treatment with Zosyn, vancomycin/developed acute renal failure, Escherichia coli shows resistance to Levaquin Rocephin day 3 Pulmonary consulted palliative care following I examined this patient and my medical decision-making was reviewed with the FRIEND OF THE COURT/PA/Advanced Practice Nurse/Resident Physician. I agree with the documented findings, disposition and treatment plan as described except to the extent set forth below.
--- NOTE | 2016-12-08 11:14 | Palliative Progress Note ---
Date of Encounter: 12/08/16 Time of Encounter: 11:12 - Assessment and plan (1) Cancer associated pain Current Visit: Yes Status: Chronic Assessment and plan: Mr. Bilss has used 6 doses of oxycodone in the past 24 hours. Interval every 2 hours as needed and continue to monitor. (2) Sepsis Current Visit: Yes Status: Acute Qualifiers: Sepsis type: sepsis due to unspecified organism Qualified Code(s): A41.9 - Sepsis, unspecified organism (3) HCAP (healthcare-associated pneumonia) Current Visit: Yes Status: Acute Assessment and plan: Infectious disease following (4) Acute kidney injury Current Visit: Yes Status: Acute Assessment and plan: Nephrology following. Renal function improving daily (5) Counseling regarding advanced directives and goals of care Current Visit: Yes Status: Acute Assessment and plan: Mr. Bliss is currently planning to return home with home health services through [facility]. manager field services following for discharge needs. Will need oncology follow up at some point. Mr. Bliss is interested in continuing antineoplastic treatments. (6) Therapeutic opioid induced constipation Current Visit: Yes Status: Acute Assessment and plan: Last documented BM was on 12/01/16. Mr. Bliss continues to take the Senna 2 tablets BID, and MiraLax was added. He has some abdominal pain and tenderness with palpation. KUB pending to rule out obstruction. Appetite is good. Consider bisacodyl rectal suppository if KUB does not demonstrate obstruction. - Time Spent With Patient Total time spent is greater than 50% in coordination of care (as documented) at patient's floor/unit and/or counseling patient: - Subjective Interval history: Mr. Bliss is sitting up in bed with family at bedside. He reports pain is "better" and he took a pain pill recently. He did not have a BM yesterday, but is passing flatus today. He reports a bronch is planned for later today with pulmonology. - Constitutional Vitals: Abnormal lab results WBC 18.3 K/mcL (4.3-11.1) H 12/08/16 04:57 RBC 3.55 M/mcL (4.19-5.50) L 12/08/16 04:57 Hgb 10.4 g/dL (12.9-16.9) L 12/08/16 04:57 Hct 33.8 % (37.5-50.1) L 12/08/16 04:57 MCHC 30.8 g/dL (31.6-35.5) L 12/08/16 04:57 Neutrophils # 13.6 K/mcL (1.6-8.9) H 12/08/16 04:57 Monocytes # 2.3 K/mcL (0.0-1.3) H 12/08/16 04:57 Nucleated RBCs/100 WBC 0.1 /100 WBC (0) H 12/06/16 06:04 PT 14.1 Seconds (9.4-12.1) H 11/20/16 00:10 APTT 24.9 Seconds (26.0-36.0) L 11/20/16 00:10 ABG pCO2 46 mmHg (35-45) H 11/19/16 23:45 ABG pO2 62 mmHg (85-104) L 11/19/16 23:45 ABG HCO3 31.2 mEQ/L (21-27) H 11/19/16 23:45 ABG Total CO2 32.6 mEq/L (20-26) H 11/19/16 23:45 ABG O2 Saturation 92 % (95-98) L 11/19/16 23:45 ABG Base Excess 6.1 mEq/L (-2.0 to 3.0) H 11/19/16 23:45 Potassium 3.4 mEq/L (3.5-4.5) L 12/08/16 04:57 Chloride 95 mEq/L (98-109) L 12/08/16 04:57 Carbon Dioxide 36 mEq/L (19-29) H 12/08/16 04:57 BUN 28 mg/dL (8-26) H 12/08/16 04:57 Creatinine 2.53 mg/dL (0.72-1.25) H 12/08/16 04:57 Est GFR ( Amer) 32 (> 60) L 12/08/16 04:57 Est GFR (Non-Af Amer) 26 (> 60) L 12/08/16 04:57 Glucose 107 mg/dL (70-99) H 12/08/16 04:57 POC Glucose 97 (58-89) H 12/04/16 11:47 Calculated Osmolality 302 (280-300) H 12/08/16 04:57 Magnesium 1.0 mg/dL (1.6-2.6) L 12/08/16 04:57 Iron 14 mcg/dL (65-175) L 11/25/16 09:45 % Saturation 10 % (20-55) L 11/25/16 09:45 Transferrin 103 mg/dL (174-364) L 11/25/16 09:45 Troponin I 0.05 ng/mL (0-0.03) H* 11/20/16 16:26 Albumin 2.0 g/dL (3.5-5.0) L 12/08/16 04:57 Globulin 4.2 g/dL (2.4-3.5) H 12/08/16 04:57 Albumin/Globulin Ratio 0.5 (1.1-2.2) L 12/08/16 04:57 Amylase 18 Units/L (25-125) L 11/25/16 16:04 Vitamin B12 865 pg/mL (213-816) H 11/25/16 09:45 Procalcitonin 0.87 ng/mL (<=0.10) H 11/25/16 16:04 Vancomycin Trough 71.6 mcg/mL (10-20) H* 11/24/16 03:25 - ENT ENT exam: Present: mucous membranes moist - Respiratory Respiratory exam: Present: accessory muscle use, decreased breath sounds. Absent: respiratory distress, rhonchi - Cardiovascular Cardiovascular exam: Present: RRR - GI/Abdominal GI/Abdominal exam: Present: firm, normal bowel sounds, tenderness. Absent: distended, guarding - Extremities Exam Extremities exam: Present: normal inspection - Neurological Exam Neurological exam: Present: alert, oriented X3, no focal deficits, strengths equal and symetr throughout Additional comments: mild confusion at times, re-orients easily - Psychiatric Psychiatric exam: Absent: agitated, anxious - Skin Skin exam: Present: dry, warm Palliative Quality Palliative Quality: Screen for Code Status: Yes, Screen for Goals of Care: Yes, Screen for Pain: Yes, If Pain Regimen Started, Initiate Bowel Regimen: Yes, Screen for Nausea/Vomitting: Yes Code Status: 11/20/16 03:31 Resuscitation Status: Active [RES] Routine Comment: Resuscitation Status: Full Code Resuscitation Status: Active [RES] Routine Comment: Resuscitation Status: DNR-Comfort Care-Arrest - Labs CBC & Chem 7: 12/08/16 04:57 12/08/16 04:57 Labs: Laboratory Results - last 24 hr 12/08/16 12/08/16 12/08/16 04:57 04:57 04:57 WBC 18.3 H RBC 3.55 L Hgb 10.4 L Hct 33.8 L MCV 95.2 MCH 29.3 MCHC 30.8 L RDW 13.8 Plt Count 204 MPV 10.8 Immature Gran % 1.9 Seg Neutrophils % 74.3 Lymphocytes % 10.9 Monocytes % 12.5 Eosinophils % 0.2 Basophils % 0.2 Neutrophils # 13.6 H Lymphocytes # 2.0 Monocytes # 2.3 H Eosinophils # 0.0 Basophils # 0.0 Sodium 143 Potassium 3.4 L Chloride 95 L Carbon Dioxide 36 H BUN 28 H Creatinine 2.53 H Est GFR ( Amer) 32 L Est GFR (Non-Af Amer) 26 L BUN/Creatinine Ratio 11 Glucose 107 H Calculated Osmolality 302 H Calcium 10.3 Phosphorus 4.1 Magnesium 1.0 L Total Bilirubin 0.3 AST 21 ALT 9 Alkaline Phosphatase 110 Serum Total Protein 6.2 Albumin 2.0 L Globulin 4.2 H Albumin/Globulin Ratio 0.5 L - ABG Interpretation ABG results: ABG ABG pH 7.44 pH Units (7.32-7.45) 11/19/16 23:45 ABG pCO2 46 mmHg (35-45) H 11/19/16 23:45 ABG pO2 62 mmHg (85-104) L 11/19/16 23:45 ABG O2 Saturation 92 % (95-98) L 11/19/16 23:45 PT/INR, D-dimer PT 14.1 Seconds (9.4-12.1) H 11/20/16 00:10 Consult Discharge Plan - Plan Referrals: Alexander Cox DO [Non-Partnered Physician] - (TRIED TO CALL AND MAKE AN APPOINTMENT THE OFFICE IS CLOSED ON FRIDAYS. ) Shabana Llamas DO [Primary Care Provider] - 12/11/16 10:20 am Gerardo Kendrick MD [Partnered Physician] - 12/08/16 9:30 am
--- NOTE | 2016-12-08 12:13 | Infectious Disease Progress No ---
Date of Encounter: 12/08/16 Time of Encounter: 12:11 - Assessment and Plan (1) Sepsis Current Visit: Yes Status: Acute The patient had three SIRS criteria on admission (leukocytosis, tachycardia, and fever) on admission. He continues to have tachycardia and he had a fever yesterday evening. His WBC is still elevated, but is trending down. Sepsis originally secondary to post-obstructive PNA, but new-onset of leukocytosis of unclear etiology --> PNA, ileus, other. Blood cultures drawn 11/20/16 x 2 sets, 11/23/16 x 2 sets, and 11/25/16 x 2 sets are negative. Repeat blood cultures x 3 sets drawn 12/02/16 are negative as well. Qualifiers: Sepsis type: sepsis due to unspecified organism Qualified Code(s): A41.9 - Sepsis, unspecified organism (2) Pneumonia Current Visit: Yes Status: Acute Causative organism E. coli. Likely post-obstructive due to large lung mass. CT of the chest 11/25/16 shows unchanged mass-like opacity in the left hilar region with superimposed left upper lobe consolidation. 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 Repeat CT scan of the chest 12/02/16 shows that the left hilar mass appears slightly larger than on the previous study. According to the radiologist, this causes obstruction of the left upper lobe bronchus and narrowing of the lingular bronchus. Airspace disease in the left upper lobe and lingula most likely represent postobstructive pneumonia. There is also increased interstitial markings in the left upper lobe and lingula and to a lesser degree of the left lower lobe likely representing lymphangitic tumor infiltration or hilar lymph node obstruction. Status post bronch 12/04/16. Endo report reviewed. BAL culture grew E. coli. Consider aspiration as well. Recommend swallow evaluation. Discussed with the palliative care and primary team providers. Levaquin discontinued by the primary team and Rocephin started based on culture sensitivities. Continue Rocephin 1 gram IV daily. Duration of treatment depends on the clinical picture. Monitor renal function and dose-adjust antibiotics. Qualifiers: Pneumonia type: due to unspecified organism Laterality: left Lung location: upper lobe of lung Qualified Code(s): J18.1 - Lobar pneumonia, unspecified organism (3) Acute kidney injury Current Visit: Yes Status: Acute Likely secondary to vanc toxicity. Serum creatinine continues to improve. Continue to trend. Avoid nephrotoxins as able and dose-adjust antibiotics. (4) Vancomycin poisoning Current Visit: Yes Status: Resolved Qualifiers: Encounter type: initial encounter Injury intent: accidental or unintentional Qualified Code(s): T36.8X1A - Poisoning by other systemic antibiotics, accidental (unintentional), initial encounter (5) Abdominal pain Current Visit: Yes Status: Acute Etiology not clear, but consider constipation given that the patient has not had a BM since 12/01. Consider KUB to evaluate for possible ileus. Lipase/amylase/LFT's WNL. CT abdomen without acute infectious process x 2. Pain management per the primary and palliative care teams. Qualifiers: Abdominal location: epigastric Qualified Code(s): R10.13 - Epigastric pain (6) CVA (cerebral vascular accident) Current Visit: No Status: Chronic Qualifiers: CVA mechanism: unspecified Qualified Code(s): I63.9 - Cerebral infarction, unspecified (7) Lung cancer Current Visit: Yes Status: Acute Diagnosed 3 months ago. First chemotherapy session was about 09/24/16. Appears to be getting worse with metastases. Hem/Onc following. Await their input regarding the patient's prognosis and if the patient will still be a candidate for chemo once infection resolved. Palliative care has been consulted. Code status discussed and noted. Qualifiers: Laterality: left Lung location: unspecified part of lung Qualified Code(s ): C34.92 - Malignant neoplasm of unspecified part of left bronchus or lung (8) Cancer associated pain Current Visit: Yes Status: Chronic Palliative care consulted. - Subjective Interval history: Patient seen and examined. No acute events noted overnight. Patient sitting up in bed with family at the bedside, eating breakfast. Denies fevers or chills, but documented fever last night of 101. Denies chest pain, but reports continued shortness of breath and cough productive of clear and green/yellow sputum.Complains of diffuse abdominal pain and states he feels constipated. He is unsure of last BM, but per documentation it was 12/01. He states his appetite is poor, but is getting a little better. He denies nausea, vomiting, or diarrhea. He denies urinary complaints. He denies oral thrush or skin lesions. Infect Dis PN-Objective Data - Labs CBC & Chem 7: 12/09/16 05:48 12/09/16 05:48 Labs: Laboratory Results - last 24 hr 12/08/16 12/08/16 12/08/16 04:57 04:57 04:57 WBC 18.3 H RBC 3.55 L Hgb 10.4 L Hct 33.8 L MCV 95.2 MCH 29.3 MCHC 30.8 L RDW 13.8 Plt Count 204 MPV 10.8 Immature Gran % 1.9 Seg Neutrophils % 74.3 Lymphocytes % 10.9 Monocytes % 12.5 Eosinophils % 0.2 Basophils % 0.2 Neutrophils # 13.6 H Lymphocytes # 2.0 Monocytes # 2.3 H Eosinophils # 0.0 Basophils # 0.0 Sodium 143 Potassium 3.4 L Chloride 95 L Carbon Dioxide 36 H BUN 28 H Creatinine 2.53 H Est GFR ( Amer) 32 L Est GFR (Non-Af Amer) 26 L BUN/Creatinine Ratio 11 Glucose 107 H Calculated Osmolality 302 H Calcium 10.3 Phosphorus 4.1 Magnesium 1.0 L Total Bilirubin 0.3 AST 21 ALT 9 Alkaline Phosphatase 110 Serum Total Protein 6.2 Albumin 2.0 L Globulin 4.2 H Albumin/Globulin Ratio 0.5 L Cultures: Cultures 12/02/16 16:04 Blood Culture - Final Peripheral Venipuncture No growth. 12/02/16 16:04 Blood Culture - Final Peripheral Venipuncture No growth. 12/04/16 14:26 Respiratory Culture - Final Left Upper Lobe Lung Escherichia coli 12/04/16 14:26 Acid Fast Stain - Final Left Upper Lobe Lung 12/03/16 08:00 Sputum Culture - Final Sputum Escherichia coli 12/04/16 14:26 Gram Stain - Final Left Upper Lobe Lung 11/25/16 17:06 Blood Culture - Final Peripheral Venipuncture No growth. 11/25/16 17:06 Blood Culture - Final Peripheral Venipuncture No growth. 11/23/16 08:30 Blood Culture - Final Peripheral Venipuncture No growth. 11/23/16 08:39 Blood Culture - Final Peripheral Venipuncture No growth. 11/25/16 19:05 Legionella Antigen - Final Urine,Clean Catch 11/20/16 15:00 Sputum Culture - Final Sputum Serology 12/04/16 11/25/16 Range/Units 14:26 11:30 Fluid Source left upper lobe Fluid Volume 20 mL Fluid Appearance Clear (Clear) Fluid RBC TNP Fld Tot Nucleated Cell TNP Fluid Seg Neutrophil % 92.0 % Fluid Lymphocytes % 5.0 % Fluid Other Cells % 3.0 % Chlamy pneumoniae PCR Not Detected (Not Detect) Adenovirus (PCR) Not Detected (Not Detect) B. pertussis DNA (PCR) Not Detected (Not Detect) Coronavirus OC43 (PCR) Not Detected (Not Detect) Coronavirus HKU1 (PCR) Not Detected (Not Detect) Coronavirus 229E (PCR) Not Detected (Not Detect) Coronavirus NL63 (PCR) Not Detected (Not Detect) Human Metapneumovir PCR Not Detected (Not Detect) Influenza A (H1) PCR Not Detected (Not Detect) Influ A (H1N1/09) PCR Not Detected (Not Detect) Influenza A (H3) PCR Not Detected (Not Detect) Influenza A Untype (PCR) Not Detected (Not Detect) Influenza Type B (PCR) Not Detected (Not Detect) M.pneumoniae DNA (PCR) Not Detected (Not Detect) Parainfluenza 1 (PCR) Not Detected (Not Detect) Parainfluenza 2 (PCR) Not Detected (Not Detect) Parainfluenza 3 (PCR) Not Detected (Not Detect) Parainfluenza 4 (PCR) Not Detected (Not Detect) RSV (PCR) Not Detected (Not Detect) Entero/Rhino (PCR) Not Detected (Not Detect) Exam - Constitutional Vitals: Temp Pulse Resp BP Pulse Ox 97.9 F 105 20 97/63 97 12/08/16 11:30 12/08/16 11:30 12/08/16 11:30 12/08/16 11:30 12/08/16 11:30 General appearance: cooperative, no acute distress, thin - Head Head exam: Present: atraumatic, normal inspection, normocephalic - Eye Eye exam: Present: EOMI, normal appearance, PERRL Pupils: Present: normal accommodation - ENT ENT exam: Present: mucous membranes moist - Neck Neck exam: Present: normal inspection - Respiratory Respiratory exam: Present: decreased breath sounds (left base). Absent: CTAB, rales, respiratory distress, rhonchi Additional comments: Coarse lung sounds throughout. - Cardiovascular Cardiovascular exam: Present: +S1, +S2, tachycardia - GI/Abdominal GI/Abdominal exam: Present: distended, firm, normal bowel sounds, tenderness ( generalized) - Extremities Exam Extremities exam: Present: normal inspection. Absent: joint swelling, pedal edema, tenderness - Neurological Exam Neurological exam: Present: alert, oriented X3, no focal deficits - Psychiatric Psychiatric exam: Present: normal affect, normal mood - Skin Skin exam: Present: dry, intact, normal color, warm - Additional findings Additional findings: A-port noted to the right upper chest, accessed with 19g Ragland needle. No erythema, warmth, tenderness, or drainage noted. Transparent dressing C/D/I. Consult Discharge Plan - Plan Referrals: Alexander Cox DO [Non-Partnered Physician] - (TRIED TO CALL AND MAKE AN APPOINTMENT THE OFFICE IS CLOSED ON FRIDAYS. ) Shabana Llamas DO [Primary Care Provider] - 12/11/16 10:20 am Gerardo Kendrick MD [Partnered Physician] - 12/08/16 9:30 am - Attending Attestation I examined this patient and my medical decision-making was reviewed with the COMMERCIAL APPRAISER/PA/Advanced Practice Nurse/Resident Physician. I agree with the documented findings, disposition and treatment plan as described except to the extent set forth below.
[2016-12-09] MEDS: *HR* OxyCODONE Immed Rel 5 MG TABLET PO PRN ×3 (00:20→15:17)
[2016-12-09] MEDS: *HR* Heparin 5,000 UNIT/ML VIAL SQ SCH ×3 (00:21→15:28)
[2016-12-09] MEDS: Ringers Solution, Lactated 1,000 ML IVC SCH (00:22)
[2016-12-09] MEDS ORDERED: *HR* Morphine 2 MG/ML SYRINGE IVP PRN (04:08)
[2016-12-09] MEDS: Ondansetron 4 MG/2 ML VIAL IVP PRN ×2 (05:43→15:15)
[2016-12-09 06:08] LABS: Basophils % 0.2 %; Eosinophils % 0.1 %; Hematocrit 33.7 % (37.5-50.1); Hemoglobin 9.9 g/dL (12.9-16.9); Lymphocytes # 2.7 K/mcL (0.6-4.6); Lymphocytes % 12.3 %; Mean Corpuscular HGB Conc 29.4 g/dL (31.6-35.5); Mean Corpuscular Hemoglobin 27.9 pg (28.0-33.3); Mean Corpuscular Volume 94.9 fL (83.0-100.0); Mean Platelet Volume 10.3 fL (9.4-12.4); Monocytes # 2.8 K/mcL (0.0-1.3); Monocytes % 12.6 %; Platelet Count 218 K/mcL (140-400); Red Blood Count 3.55 M/mcL (4.19-5.50); Red Cell Distribution Width 13.9 % (11.5-14.5); Segmented Neutrophils % 72.8 %
[2016-12-09 06:17] LABS: Phosphorous 4.2 mg/dL (2.3-4.7)
[2016-12-09 06:19] LABS: Albumin/Globulin Ratio 0.4 (1.1-2.2); Bilirubin,Total 0.3 mg/dL (0.2-1.2); Calcium 10.3 mg/dL (8.6-10.8); Globulin 4.3 g/dL (2.4-3.5); Potassium 3.3 mEq/L (3.5-4.5); Total Protein 6.2 g/dL (6.0-8.3)
[2016-12-09 06:22] LABS: Albumin 1.9 g/dL (3.5-5.0)
--- NOTE | 2016-12-09 08:03 | Internal Med Progress Note ---
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 Baseline is 2 L of oxygen at home. Changes duo nebs 2 scheduled incentive when necessary. Will add Mucinex. (2) Primary lung cancer with metastasis from lung to other site Current Visit: Yes Status: Chronic Assessment and plan: Adenocarcinoma with Brain mets. Patient needs therapy at home. PT and OT has seen patient and recommends therapy. Patient DNRCC - A. Patient goal is returm home HH services. SS involved in case and working on home set-up. Oncology to discuss immunotherapy treatment. Will cont to follow. Qualifiers: Laterality: unspecified laterality Qualified Code(s): C34.90 - Malignant neoplasm of unspecified part of unspecified bronchus or lung (3) Postobstructive pneumonia Current Visit: Yes Status: Acute Assessment and plan: See above. Plan bedside swallow study. Continue Rocephin (Day 4) and supplement oxygen (4) Decreased appetite Current Visit: Yes Status: Acute Assessment and plan: Consider appetite stimulation after bowel movement, will discuss with palliative care. (5) Acute kidney injury Current Visit: Yes Status: Acute Assessment and plan: Improved. Suspect due to multiple factors including sepsis, vancomycin perhaps. Nephrology on case. Renal function improving gradually and nephrology has recommended discharge (6) Lung cancer Current Visit: Yes Status: Acute Assessment and plan: reports that he has received one cycle of chemotherapy so far. has possible mets in liver as well as adrenals appreciate oncology recommendations, patient wishes to f/u with oncology after dc to discuss immunotherapy treatment options. Qualifiers: Laterality: left Lung location: unspecified part of lung Qualified Code(s ): C34.92 - Malignant neoplasm of unspecified part of left bronchus or lung (7) Sepsis Current Visit: Yes Status: Acute Assessment and plan: Perhaps related to gram-negative sepsis secondary to gram-negative pneumonia. Continue current Rocephin treatment Qualifiers: Sepsis type: sepsis due to unspecified organism Qualified Code(s): A41.9 - Sepsis, unspecified organism (8) Therapeutic opioid induced constipation Current Visit: Yes Status: Acute Assessment and plan: Continue laxatives and give enema this a.m. (9) Cancer associated pain Current Visit: Yes Status: Chronic Assessment and plan: Patient is on fentanyl and oxycodone and probably would require heavy pain medication as outpatient to he has been referred to palliative care. Cautious morphine due to renal insufficiency (10) CVA (cerebral vascular accident) Current Visit: No Status: Chronic Qualifiers: CVA mechanism: unspecified Qualified Code(s): I63.9 - Cerebral infarction, unspecified (11) DVT prophylaxis Current Visit: No Status: Acute Assessment and plan: Heparin and SCDs Patient seen and examined, case discussed with him and agreed upon with Dr. Redding - Subjective Interval history: Patient reports CP overnight. Patient resting in bed on 4.5L supplemental O2, states his insides continue to hurt this morning, and he has decreased appetite for the past couple of days. Pt denies worsening SOB, fevers, chills, vomiting, diarrhea, or dysuria. States he is unsure when his last BM was and he feels constipated. - Constitutional Vitals: Temp Pulse Resp BP Pulse Ox 98.9 F 129 20 108/65 96 12/09/16 07:55 12/09/16 07:55 12/09/16 07:55 12/09/16 07:55 12/09/16 07:55 General appearance: Present: cachectic, cooperative, A&O X 3, pleasant, underweight, answers questions appropriately Exam: Appears ill - Head Head exam: Present: atraumatic, normocephalic - Eye Eye exam: Present: PERRL, conjuntiva pink, sclera anicteric Pupils: Present: PERRL - ENT ENT exam: Present: mucous membranes dry, normal oropharynx - Neck Neck exam general surgery: Present: supple, trachea midline. Absent: lymphadenopathy - Respiratory Respiratory exam: Present: decreased breath sounds, rhonchi. Absent: accessory muscle use, CTAB, rales, wheezes Additional comments: Left - Cardiovascular Cardiovascular exam: Present: +S1, +S2, tachycardia. Absent: diastolic murmur, gallop, rubs, systolic murmur - GI/Abdominal GI/Abdominal exam: Present: normal bowel sounds, soft, tenderness (Diffuse), no peritoneal signs. Absent: distended - Extremities Exam Extremities exam: Present: warm, radial pulses palpable and symetrical. Absent : calf tenderness, cyanotic, pedal edema - Neurological Exam Neurological exam: Present: CN II-XII intact, oriented X3, no focal deficits. Absent: pronater drift, facial droop, speech deficit - Psychiatric Psychiatric exam: Present: depressed, flat affect - Skin Skin exam: Present: dry, intact, warm Internal Medicine: Result - Labs CBC & Chem 7: 12/09/16 05:48 12/09/16 05:48 Labs: Short CBC 12/09/16 Range/Units 05:48 WBC 22.0 H (4.3-11.1) K/mcL Hgb 9.9 L (12.9-16.9) g/dL Hct 33.7 L (37.5-50.1) % Plt Count 218 (140-400) K/mcL Neutrophils # 16.0 H (1.6-8.9) K/mcL BMP 12/09/16 05:48 Sodium 144 Potassium 3.3 L Chloride 95 L Carbon Dioxide 38 H BUN 23 Creatinine 2.09 H Glucose 81 Calcium 10.3 Liver Function 12/09/16 Range/Units 05:48 Total Bilirubin 0.3 (0.2-1.2) mg/dL AST 23 (5-34) Units/L ALT 9 (0-55) Units/L Alkaline Phosphatase 115 (38-126) Units/L Albumin 1.9 L (3.5-5.0) g/dL - ABG Interpretation ABG results: ABG ABG pH 7.44 pH Units (7.32-7.45) 11/19/16 23:45 ABG pCO2 46 mmHg (35-45) H 11/19/16 23:45 ABG pO2 62 mmHg (85-104) L 11/19/16 23:45 ABG O2 Saturation 92 % (95-98) L 11/19/16 23:45 PT/INR, D-dimer PT 14.1 Seconds (9.4-12.1) H 11/20/16 00:10 - Impressions Impressions KUB X-Ray 12/08/16 12:10 IMPRESSION: 1. No significant stool identified within the colon. Nonspecific bowel gas pattern with no evidence for definite obstructive process. 2. Left pleural effusion. D/ / Wilfredo Cornelius MD / Wilfredo Cornelius MD Interpreting Provider: Wilfredo Cornelius MD Consult Discharge Plan - Plan Referrals: Alexander Cox DO [Non-Partnered Physician] - (TRIED TO CALL AND MAKE AN APPOINTMENT THE OFFICE IS CLOSED ON FRIDAYS. ) Shabana Llamas DO [Primary Care Provider] - 12/11/16 10:20 am Gerardo Kendrick MD [Partnered Physician] - 12/08/16 9:30 am <Bhanu Aquino H - Last Filed: 12/09/16 13:15> Date of Encounter: 12/09/16 - Constitutional Vitals: Temp Pulse Resp BP Pulse Ox 98.0 F 108 18 92/62 99 12/09/16 10:46 12/09/16 10:46 12/09/16 10:46 12/09/16 10:46 12/09/16 10:46 Internal Medicine: Result - Labs CBC & Chem 7: 12/09/16 05:48 12/09/16 05:48 Labs: Short CBC 12/09/16 Range/Units 05:48 WBC 22.0 H (4.3-11.1) K/mcL Hgb 9.9 L (12.9-16.9) g/dL Hct 33.7 L (37.5-50.1) % Plt Count 218 (140-400) K/mcL Neutrophils # 16.0 H (1.6-8.9) K/mcL BMP 12/09/16 05:48 Sodium 144 Potassium 3.3 L Chloride 95 L Carbon Dioxide 38 H BUN 23 Creatinine 2.09 H Glucose 81 Calcium 10.3 Liver Function 12/09/16 Range/Units 05:48 Total Bilirubin 0.3 (0.2-1.2) mg/dL AST 23 (5-34) Units/L ALT 9 (0-55) Units/L Alkaline Phosphatase 115 (38-126) Units/L Albumin 1.9 L (3.5-5.0) g/dL - ABG Interpretation ABG results: ABG ABG pH 7.44 pH Units (7.32-7.45) 11/19/16 23:45 ABG pCO2 46 mmHg (35-45) H 11/19/16 23:45 ABG pO2 62 mmHg (85-104) L 11/19/16 23:45 ABG O2 Saturation 92 % (95-98) L 11/19/16 23:45 PT/INR, D-dimer PT 14.1 Seconds (9.4-12.1) H 11/20/16 00:10 - Impressions Impressions KUB X-Ray 12/08/16 12:10 IMPRESSION: 1. No significant stool identified within the colon. Nonspecific bowel gas pattern with no evidence for definite obstructive process. 2. Left pleural effusion. D/ / Wilfredo Cornelius MD / Wilfredo Cornelius MD Interpreting Provider: Wilfredo Cornelius MD Chest X-Ray 12/09/16 04:00 IMPRESSION: 1. Interval worsening in opacification of the left hemithorax with re-demonstration of the patient's known left upper lobe mass with suspected worsened volume loss in the left upper lobe. 2. Moderate left pleural effusion. D/ / 12/09/2016 08:14:44 Jeff Bullock MD / Lisa Cherry Interpreting Provider: Jeff Bullock MD - Attending Attestation Radiology oncology to evaluate the possibility of initiating radiotherapy. Commendations appreciated I examined this patient and my medical decision-making was reviewed with the CLERICAL SUPERVISOR/PA/Advanced Practice Nurse/Resident Physician. I agree with the documented findings, disposition and treatment plan as described except to the extent set forth below.
--- NOTE | 2016-12-09 08:10 | Oncology Inp Progress Note ---
Date of Encounter: 12/09/16 Time of Encounter: 08:10 Oncology: Subj Interval history: History of present illness: Patient seen and examined at bedside. Chart reviewed for interval details and appreciate ongoing management by hospital team. He reports feeling relatively well this morning. Pain remains problematic. On reviewing his records, kidney function is steadily improving. He is very encouraged by this. No other new issues. Review of systems: 12 point review of systems as noted above.All other systems are negative: Physical exam: Vital Signs Temp 98.0 F 12/09/16 10:46 Pulse 108 12/09/16 10:46 Resp 18 12/09/16 10:46 BP 92/62 12/09/16 10:46 Pulse Ox 99 12/09/16 10:46 GENERAL: Alert and oriented, lethargic appearing. Mental Status: Affect appropriate for circumstances Skin: No rashes or petechiae. No evidence of skin malignancy Extremities: No edema. No calf swelling or tenderness. No joint deformity. Neurologic: Global weakness but no focal sensorimotor abnormalities. Results: Laboratory Last Values WBC 22.0 K/mcL (4.3-11.1) H 12/09/16 05:48 RBC 3.55 M/mcL (4.19-5.50) L 12/09/16 05:48 Hgb 9.9 g/dL (12.9-16.9) L 12/09/16 05:48 Hct 33.7 % (37.5-50.1) L 12/09/16 05:48 MCV 94.9 fL (83.0-100.0) 12/09/16 05:48 MCH 27.9 pg (28.0-33.3) L 12/09/16 05:48 MCHC 29.4 g/dL (31.6-35.5) L 12/09/16 05:48 RDW 13.9 % (11.5-14.5) 12/09/16 05:48 Plt Count 218 K/mcL (140-400) 12/09/16 05:48 MPV 10.3 fL (9.4-12.4) 12/09/16 05:48 Immature Gran % 2.0 % (0-4) 12/09/16 05:48 Seg Neutrophils % 72.8 % 12/09/16 05:48 Lymphocytes % 12.3 % 12/09/16 05:48 Monocytes % 12.6 % 12/09/16 05:48 Eosinophils % 0.1 % 12/09/16 05:48 Basophils % 0.2 % 12/09/16 05:48 Neutrophils # 16.0 K/mcL (1.6-8.9) H 12/09/16 05:48 Lymphocytes # 2.7 K/mcL (0.6-4.6) 12/09/16 05:48 Monocytes # 2.8 K/mcL (0.0-1.3) H 12/09/16 05:48 Eosinophils # 0.0 K/mcL (0.0-0.6) 12/09/16 05:48 Basophils # 0.0 K/mcL (0.0-0.2) 12/09/16 05:48 Nucleated RBCs/100 WBC 0.1 /100 WBC (0) H 12/06/16 06:04 Immature Plt Fraction 1.9 % (1.1-6.1) 11/30/16 05:12 PT 14.1 Seconds (9.4-12.1) H 11/20/16 00:10 INR 1.3 11/20/16 00:10 APTT 24.9 Seconds (26.0-36.0) L 11/20/16 00:10 ABG pH 7.44 pH Units (7.32-7.45) 11/19/16 23:45 ABG pCO2 46 mmHg (35-45) H 11/19/16 23:45 ABG pO2 62 mmHg (85-104) L 11/19/16 23:45 ABG HCO3 31.2 mEQ/L (21-27) H 11/19/16 23:45 ABG Total CO2 32.6 mEq/L (20-26) H 11/19/16 23:45 ABG O2 Saturation 92 % (95-98) L 11/19/16 23:45 ABG Base Excess 6.1 mEq/L (-2.0 to 3.0) H 11/19/16 23:45 Liter Flow 1.5 L/MIN 11/19/16 23:45 Blood Gas Modality AL 11/19/16 23:45 Sodium 144 mEq/L (136-145) 12/09/16 05:48 Potassium 3.3 mEq/L (3.5-4.5) L 12/09/16 05:48 Chloride 95 mEq/L (98-109) L 12/09/16 05:48 Carbon Dioxide 38 mEq/L (19-29) H 12/09/16 05:48 BUN 23 mg/dL (8-26) 12/09/16 05:48 Creatinine 2.09 mg/dL (0.72-1.25) H 12/09/16 05:48 Est GFR ( Amer) 40 (> 60) L 12/09/16 05:48 Est GFR (Non-Af Amer) 33 (> 60) L 12/09/16 05:48 BUN/Creatinine Ratio 11 (6-26) 12/09/16 05:48 Glucose 81 mg/dL (70-99) 12/09/16 05:48 POC Glucose 97 (58-89) H 12/04/16 11:47 Calculated Osmolality 301 (280-300) H 12/09/16 05:48 Lactic Acid 0.6 mmol/L (0.5-2.2) 11/20/16 04:43 Calcium 10.3 mg/dL (8.6-10.8) 12/09/16 05:48 Phosphorus 4.2 mg/dL (2.3-4.7) 12/09/16 05:48 Magnesium 1.0 mg/dL (1.6-2.6) L 12/09/16 05:48 Iron 14 mcg/dL (65-175) L 11/25/16 09:45 % Saturation 10 % (20-55) L 11/25/16 09:45 Transferrin 103 mg/dL (174-364) L 11/25/16 09:45 Total Bilirubin 0.3 mg/dL (0.2-1.2) 12/09/16 05:48 Direct Bilirubin 0.3 mg/dL (0.0-0.5) 11/20/16 00:10 Indirect Bilirubin 0.3 mg/dL (0.0-1.2) 11/20/16 00:10 AST 23 Units/L (5-34) 12/09/16 05:48 ALT 9 Units/L (0-55) 12/09/16 05:48 Alkaline Phosphatase 115 Units/L (38-126) 12/09/16 05:48 Troponin I 0.05 ng/mL (0-0.03) H* 11/20/16 16:26 Serum Total Protein 6.2 g/dL (6.0-8.3) 12/09/16 05:48 Albumin 1.9 g/dL (3.5-5.0) L 12/09/16 05:48 Globulin 4.3 g/dL (2.4-3.5) H 12/09/16 05:48 Albumin/Globulin Ratio 0.4 (1.1-2.2) L 12/09/16 05:48 Amylase 18 Units/L (25-125) L 11/25/16 16:04 Lipase < 10 Units/L (8-78) 11/25/16 16:04 Vitamin B12 865 pg/mL (213-816) H 11/25/16 09:45 Folate 16.2 ng/mL (7.0-31.4) 11/25/16 09:45 Procalcitonin 0.87 ng/mL (<=0.10) H 11/25/16 16:04 Fluid Source left upper lobe 12/04/16 14:26 Fluid Volume 20 mL 12/04/16 14:26 Fluid Appearance Clear (Clear) 12/04/16 14:26 Fluid RBC TNP 12/04/16 14:26 Fld Tot Nucleated Cell TNP 12/04/16 14:26 Fluid Seg Neutrophil % 92.0 % 12/04/16 14:26 Fluid Lymphocytes % 5.0 % 12/04/16 14:26 Fluid Other Cells % 3.0 % 12/04/16 14:26 Vancomycin Trough 71.6 mcg/mL (10-20) H* 11/24/16 03:25 Random Vancomycin 14.2 mcg/mL 12/02/16 16:04 Chlamy pneumoniae PCR Not Detected (Not Detect) 11/25/16 11:30 Adenovirus (PCR) Not Detected (Not Detect) 11/25/16 11:30 B. pertussis DNA (PCR) Not Detected (Not Detect) 11/25/16 11:30 Coronavirus OC43 (PCR) Not Detected (Not Detect) 11/25/16 11:30 Coronavirus HKU1 (PCR) Not Detected (Not Detect) 11/25/16 11:30 Coronavirus 229E (PCR) Not Detected (Not Detect) 11/25/16 11:30 Coronavirus NL63 (PCR) Not Detected (Not Detect) 11/25/16 11:30 Human Metapneumovir PCR Not Detected (Not Detect) 11/25/16 11:30 Influenza A (H1) PCR Not Detected (Not Detect) 11/25/16 11:30 Influ A (H1N1/09) PCR Not Detected (Not Detect) 11/25/16 11:30 Influenza A (H3) PCR Not Detected (Not Detect) 11/25/16 11:30 Influenza A Untype (PCR) Not Detected (Not Detect) 11/25/16 11:30 Influenza Type B (PCR) Not Detected (Not Detect) 11/25/16 11:30 M.pneumoniae DNA (PCR) Not Detected (Not Detect) 11/25/16 11:30 Parainfluenza 1 (PCR) Not Detected (Not Detect) 11/25/16 11:30 Parainfluenza 2 (PCR) Not Detected (Not Detect) 11/25/16 11:30 Parainfluenza 3 (PCR) Not Detected (Not Detect) 11/25/16 11:30 Parainfluenza 4 (PCR) Not Detected (Not Detect) 11/25/16 11:30 RSV (PCR) Not Detected (Not Detect) 11/25/16 11:30 Entero/Rhino (PCR) Not Detected (Not Detect) 11/25/16 11:30 Radiographic studies: Impression/recommendations: Lung cancer: Metastatic adenocarcinoma, left lung primary. Unfortunately, he was only able to receive 1 dose of chemotherapy to date which was on 09/24/16. Rest of his treatment has been on hold due to clinical deterioration with intercurrent illness including multiple bouts of recurrent pneumonia requiring hospitalization. I'm hoping to see some improvement in his overall condition at the end of his hospitalization following which we'll try to get him back on treatment as soon as possible. Normal kidney function wd be ideal for treatment but we are able to make adjustments to chemotherapy to account for his kidney function without significant detriment. Also,I plan on treating with immunotherapy either alone or in combination chemotherapy if his overall condition permits. I do not anticipate any issues with immunotherapy based on kidney function. We'll follow the patient peripherally with you. Please call with interval questions. Thank you for your excellent ongoing care for allowing us to see him while in- house. - Constitutional Vitals: Vital Signs Temp Pulse Resp BP Pulse Ox 12/09/16 07:55 98.9 F 129 20 108/65 96 12/09/16 05:16 98.6 F 129 18 109/75 94 12/09/16 04:01 99.0 F 128 24 105/68 98 12/09/16 01:05 98.5 F 125 22 109/69 98 12/08/16 19:49 98.7 F 120 16 108/75 96 12/08/16 15:35 98.9 F 109 18 120/81 95 12/08/16 11:30 97.9 F 105 20 97/63 97 Intake and Output 12/08/16 12/09/16 12/09/16 16:59 00:59 08:59 Intake Total 300 / 300 50 / 50 500 / 500 Output Total 1100 / 1100 Balance 300 / 300 -1050 / -1050 500 / 500 Intake: IV Fluids 100 / 100 100 / 100 Flagyl Premix 500 MG/100 100 / 100 ML 500 mg In 100 ml @ 100 mls/hr IVPB Q8HR SRAVANTHI Rx# :[id number] Rocephin 1,000 MG In 100 / 100 Dextrose 5% (Minibag+) 100 ML 100 ML @ 200 mls/ hr IVPB Q24H SRAVANTHI Rx#: [id number] Oral 200 / 200 50 / 50 400 / 400 Output: Urine 1100 / 1100 Other: Meal Lunch Percent of Meal Consumed 0% # Voids 1 Oncology: Obj Data - Labs CBC & Chem 7: 12/09/16 05:48 12/09/16 05:48 Labs: Laboratory Results - last 24 hr 12/09/16 12/09/16 12/09/16 05:48 05:48 05:48 WBC 22.0 H RBC 3.55 L Hgb 9.9 L Hct 33.7 L MCV 94.9 MCH 27.9 L MCHC 29.4 L RDW 13.9 Plt Count 218 MPV 10.3 Immature Gran % 2.0 Seg Neutrophils % 72.8 Lymphocytes % 12.3 Monocytes % 12.6 Eosinophils % 0.1 Basophils % 0.2 Neutrophils # 16.0 H Lymphocytes # 2.7 Monocytes # 2.8 H Eosinophils # 0.0 Basophils # 0.0 Sodium 144 Potassium 3.3 L Chloride 95 L Carbon Dioxide 38 H BUN 23 Creatinine 2.09 H Est GFR ( Amer) 40 L Est GFR (Non-Af Amer) 33 L BUN/Creatinine Ratio 11 Glucose 81 Calculated Osmolality 301 H Calcium 10.3 Phosphorus 4.2 Magnesium 1.0 L Total Bilirubin 0.3 AST 23 ALT 9 Alkaline Phosphatase 115 Serum Total Protein 6.2 Albumin 1.9 L Globulin 4.3 H Albumin/Globulin Ratio 0.4 L - Impressions Impressions KUB X-Ray 12/08/16 12:10 IMPRESSION: 1. No significant stool identified within the colon. Nonspecific bowel gas pattern with no evidence for definite obstructive process. 2. Left pleural effusion. D/ / Wilfredo Cornelius MD / Wilfredo Cornelius MD Interpreting Provider: Wilfredo Cornelius MD - ABG Interpretation ABG results: ABG ABG pH 7.44 pH Units (7.32-7.45) 11/19/16 23:45 ABG pCO2 46 mmHg (35-45) H 11/19/16 23:45 ABG pO2 62 mmHg (85-104) L 11/19/16 23:45 ABG O2 Saturation 92 % (95-98) L 11/19/16 23:45 PT/INR, D-dimer PT 14.1 Seconds (9.4-12.1) H 11/20/16 00:10 Consult Discharge Plan - Plan Referrals: Alexander Cox DO [Non-Partnered Physician] - (TRIED TO CALL AND MAKE AN APPOINTMENT THE OFFICE IS CLOSED ON FRIDAYS. ) Shabana Llamas DO [Primary Care Provider] - 12/11/16 10:20 am Gerardo Kendrick MD [Partnered Physician] - 12/08/16 9:30 am
[2016-12-09] MEDS ORDERED: Bisacodyl 10 MG RECTAL SUPPOSITORY RC ONE (08:33)
[2016-12-09] MEDS: Nicotine 21 MG PATCH.TD24 TD SCH (09:02)
[2016-12-09] MEDS: Sennosides/Docusate Sodium TABLET PO SCH ×2 (09:04→22:11)
[2016-12-09] MEDS: Metoprolol XL (24 HR) Succ 50 MG TAB.ER.24H PO SCH (09:04)
[2016-12-09] MEDS: lamoTRIgine 25 MG TABLET PO SCH ×2 (09:15→22:09)
[2016-12-09] MEDS: Aspirin 81 MG TAB.CHEW PO SCH (09:15)
[2016-12-09] MEDS: Folic Acid 1 MG TABLET PO SCH (09:15)
[2016-12-09] MEDS: amLODIPine 5 MG TABLET PO SCH ×2 (09:15→22:11)
--- NOTE | 2016-12-09 09:32 | Palliative Progress Note ---
Date of Encounter: 12/09/16 Time of Encounter: 09:00 - Assessment and plan (1) Cancer associated pain Current Visit: Yes Status: Chronic Assessment and plan: Mr. Bliss has used 5 doses of oxycodone in the past 24 hours. Interval every 2 hours as needed and continue to monitor. He is resistant to the idea of starting oxyCONTIN again. Mr. Bliss did receive one dose of 2mg IV morphine throughout the night. Will discontinue morphine due to ARMAAN. (2) Sepsis Current Visit: Yes Status: Acute Qualifiers: Sepsis type: sepsis due to unspecified organism Qualified Code(s): A41.9 - Sepsis, unspecified organism (3) HCAP (healthcare-associated pneumonia) Current Visit: Yes Status: Acute Assessment and plan: Infectious disease following (4) Acute kidney injury Current Visit: Yes Status: Acute Assessment and plan: Nephrology following. Renal function improving daily (5) Counseling regarding advanced directives and goals of care Current Visit: Yes Status: Acute Assessment and plan: Mr. Bliss is currently planning to return home with home health services through [facility]. billing services manager following for discharge needs. Will need oncology follow up at some point. Mr. Bliss is interested in continuing antineoplastic treatments. (6) Therapeutic opioid induced constipation Current Visit: Yes Status: Acute Assessment and plan: Last documented BM was on 12/01/16. Mr. Bliss continues to take the Senna 2 tablets BID, and MiraLax was added. He has some abdominal pain and tenderness with palpation. KUB: no obstructive process observed. Appetite is poor. Bisacodyl rectal suppository. - Time Spent With Patient Total time spent is greater than 50% in coordination of care (as documented) at patient's floor/unit and/or counseling patient: - Subjective Interval history: Mr. Bliss is sitting up in bed with family at bedside. He reports continued abdominal pain and required the use of IV morphine last night. He did not have a BM yesterday. KUB did not show obstruction. - Constitutional Vitals: Abnormal lab results WBC 22.0 K/mcL (4.3-11.1) H 12/09/16 05:48 RBC 3.55 M/mcL (4.19-5.50) L 12/09/16 05:48 Hgb 9.9 g/dL (12.9-16.9) L 12/09/16 05:48 Hct 33.7 % (37.5-50.1) L 12/09/16 05:48 MCH 27.9 pg (28.0-33.3) L 12/09/16 05:48 MCHC 29.4 g/dL (31.6-35.5) L 12/09/16 05:48 Neutrophils # 16.0 K/mcL (1.6-8.9) H 12/09/16 05:48 Monocytes # 2.8 K/mcL (0.0-1.3) H 12/09/16 05:48 Nucleated RBCs/100 WBC 0.1 /100 WBC (0) H 12/06/16 06:04 PT 14.1 Seconds (9.4-12.1) H 11/20/16 00:10 APTT 24.9 Seconds (26.0-36.0) L 11/20/16 00:10 ABG pCO2 46 mmHg (35-45) H 11/19/16 23:45 ABG pO2 62 mmHg (85-104) L 11/19/16 23:45 ABG HCO3 31.2 mEQ/L (21-27) H 11/19/16 23:45 ABG Total CO2 32.6 mEq/L (20-26) H 11/19/16 23:45 ABG O2 Saturation 92 % (95-98) L 11/19/16 23:45 ABG Base Excess 6.1 mEq/L (-2.0 to 3.0) H 11/19/16 23:45 Potassium 3.3 mEq/L (3.5-4.5) L 12/09/16 05:48 Chloride 95 mEq/L (98-109) L 12/09/16 05:48 Carbon Dioxide 38 mEq/L (19-29) H 12/09/16 05:48 Creatinine 2.09 mg/dL (0.72-1.25) H 12/09/16 05:48 Est GFR ( Amer) 40 (> 60) L 12/09/16 05:48 Est GFR (Non-Af Amer) 33 (> 60) L 12/09/16 05:48 POC Glucose 97 (58-89) H 12/04/16 11:47 Calculated Osmolality 301 (280-300) H 12/09/16 05:48 Magnesium 1.0 mg/dL (1.6-2.6) L 12/09/16 05:48 Iron 14 mcg/dL (65-175) L 11/25/16 09:45 % Saturation 10 % (20-55) L 11/25/16 09:45 Transferrin 103 mg/dL (174-364) L 11/25/16 09:45 Troponin I 0.05 ng/mL (0-0.03) H* 11/20/16 16:26 Albumin 1.9 g/dL (3.5-5.0) L 12/09/16 05:48 Globulin 4.3 g/dL (2.4-3.5) H 12/09/16 05:48 Albumin/Globulin Ratio 0.4 (1.1-2.2) L 12/09/16 05:48 Amylase 18 Units/L (25-125) L 11/25/16 16:04 Vitamin B12 865 pg/mL (213-816) H 11/25/16 09:45 Procalcitonin 0.87 ng/mL (<=0.10) H 11/25/16 16:04 Vancomycin Trough 71.6 mcg/mL (10-20) H* 11/24/16 03:25 General appearance: Present: cooperative, mild distress - Eye Eye exam: Present: EOMI - ENT ENT exam: Present: mucous membranes dry - Respiratory Respiratory exam: Present: accessory muscle use (abdominal breathing), decreased breath sounds, tachypnea - Cardiovascular Cardiovascular exam: Present: RRR, tachycardia - GI/Abdominal GI/Abdominal exam: Present: firm, tenderness - Extremities Exam Extremities exam: Present: normal inspection. Absent: pedal edema - Neurological Exam Neurological exam: Present: alert, oriented X3, no focal deficits, strengths equal and symetr throughout (global weakness) - Psychiatric Psychiatric exam: Absent: agitated, anxious Palliative Quality Palliative Quality: Screen for Code Status: Yes, Screen for Goals of Care: Yes, Screen for Pain: Yes, If Pain Regimen Started, Initiate Bowel Regimen: Yes, Screen for Nausea/Vomitting: Yes Code Status: 11/20/16 03:31 Resuscitation Status: Active [RES] Routine Comment: Resuscitation Status: Full Code Resuscitation Status: Active [RES] Routine Comment: Resuscitation Status: DNR-Comfort Care-Arrest - Labs CBC & Chem 7: 12/09/16 05:48 07/12/17 05:48 Labs: Laboratory Results - last 24 hr 12/09/16 12/09/16 12/09/16 05:48 05:48 05:48 WBC 22.0 H RBC 3.55 L Hgb 9.9 L Hct 33.7 L MCV 94.9 MCH 27.9 L MCHC 29.4 L RDW 13.9 Plt Count 218 MPV 10.3 Immature Gran % 2.0 Seg Neutrophils % 72.8 Lymphocytes % 12.3 Monocytes % 12.6 Eosinophils % 0.1 Basophils % 0.2 Neutrophils # 16.0 H Lymphocytes # 2.7 Monocytes # 2.8 H Eosinophils # 0.0 Basophils # 0.0 Sodium 144 Potassium 3.3 L Chloride 95 L Carbon Dioxide 38 H BUN 23 Creatinine 2.09 H Est GFR ( Amer) 40 L Est GFR (Non-Af Amer) 33 L BUN/Creatinine Ratio 11 Glucose 81 Calculated Osmolality 301 H Calcium 10.3 Phosphorus 4.2 Magnesium 1.0 L Total Bilirubin 0.3 AST 23 ALT 9 Alkaline Phosphatase 115 Serum Total Protein 6.2 Albumin 1.9 L Globulin 4.3 H Albumin/Globulin Ratio 0.4 L - Impressions Impressions KUB X-Ray 12/08/16 12:10 IMPRESSION: 1. No significant stool identified within the colon. Nonspecific bowel gas pattern with no evidence for definite obstructive process. 2. Left pleural effusion. D/ / Wilfredo Cornelius MD / Wilfredo Cornelius MD Interpreting Provider: Wilfredo Cornelius MD Chest X-Ray 12/09/16 04:00 IMPRESSION: 1. Interval worsening in opacification of the left hemithorax with re-demonstration of the patient's known left upper lobe mass with suspected worsened volume loss in the left upper lobe. 2. Moderate left pleural effusion. D/ / 12/09/2016 08:14:44 Jeff Bullock MD / Lisa Cherry Interpreting Provider: Jeff Bullock MD - ABG Interpretation ABG results: ABG ABG pH 7.44 pH Units (7.32-7.45) 11/19/16 23:45 ABG pCO2 46 mmHg (35-45) H 11/19/16 23:45 ABG pO2 62 mmHg (85-104) L 11/19/16 23:45 ABG O2 Saturation 92 % (95-98) L 11/19/16 23:45 PT/INR, D-dimer PT 14.1 Seconds (9.4-12.1) H 11/20/16 00:10 Consult Discharge Plan - Plan Referrals: Alexander Cox DO [Non-Partnered Physician] - (TRIED TO CALL AND MAKE AN APPOINTMENT THE OFFICE IS CLOSED ON FRIDAYS. ) Shabana Llamas DO [Primary Care Provider] - 12/11/16 10:20 am Gerardo Kendrick MD [Partnered Physician] - 12/08/16 9:30 am
--- NOTE | 2016-12-09 10:04 | Infectious Disease Progress No ---
Date of Encounter: 12/09/16 Time of Encounter: 10:02 - Assessment and Plan (1) Sepsis Current Visit: Yes Status: Acute The patient had three SIRS criteria on admission (leukocytosis, tachycardia, and fever) on admission. He continues to have tachycardia, but was afebrile overnight. His WBC remains elevated. Sepsis originally secondary to post-obstructive PNA. High index of suspicion that persistent leukocytosis due to worsening PNA. Blood cultures drawn 11/20/16 x 2 sets, 11/23/16 x 2 sets, and 11/25/16 x 2 sets are negative. Repeat blood cultures x 3 sets drawn 12/02/16 are negative as well. Qualifiers: Sepsis type: sepsis due to unspecified organism Qualified Code(s): A41.9 - Sepsis, unspecified organism (2) Pneumonia Current Visit: Yes Status: Acute Causative organism E. coli. Likely post-obstructive due to large lung mass. CT of the chest 11/25/16 shows unchanged mass-like opacity in the left hilar region with superimposed left upper lobe consolidation. 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 Repeat CT scan of the chest 12/02/16 shows that the left hilar mass appears slightly larger than on the previous study. According to the radiologist, this causes obstruction of the left upper lobe bronchus and narrowing of the lingular bronchus. Airspace disease in the left upper lobe and lingula most likely represent postobstructive pneumonia. There is also increased interstitial markings in the left upper lobe and lingula and to a lesser degree of the left lower lobe likely representing lymphangitic tumor infiltration or hilar lymph node obstruction. Status post bronch 12/04/16. Endo report reviewed. BAL culture grew E. coli. Consider aspiration as well. Speech therapy note reviewed. No formal swallow evaluation completed. Repeat CXR this morning shows interval worsening in the opacification of the left hemithorax with re-demonstration of the patient's known left upper lobe mass with suspected worsened volume loss of the left upper lobe. The patient's lung mass is likely contributing to the persistent/worsening PNA and without decreasing the tumor size, it is unlikely that the PNA will resolve. Pulmonology consulted and following. Have been considering placing bronchial stent. Will await their further recommendations. Continue Rocephin 1 gram IV daily. Duration of treatment depends on the clinical picture. Monitor renal function and dose-adjust antibiotics. Qualifiers: Pneumonia type: due to unspecified organism Laterality: left Lung location: upper lobe of lung Qualified Code(s): J18.1 - Lobar pneumonia, unspecified organism (3) Acute kidney injury Current Visit: Yes Status: Acute Likely secondary to vanc toxicity. Serum creatinine continues to improve. Continue to trend. Avoid nephrotoxins as able and dose-adjust antibiotics. (4) Vancomycin poisoning Current Visit: Yes Status: Resolved Qualifiers: Encounter type: initial encounter Injury intent: accidental or unintentional Qualified Code(s): T36.8X1A - Poisoning by other systemic antibiotics, accidental (unintentional), initial encounter (5) Abdominal pain Current Visit: Yes Status: Acute Etiology not clear, but consider constipation given that the patient has not had a BM since 12/01. Bowel regimen per the palliative care team. KUB does not show obstruction or ileus. CT abdomen without acute infectious process x 2. Pain management per the primary and palliative care teams. Qualifiers: Abdominal location: epigastric Qualified Code(s): R10.13 - Epigastric pain (6) CVA (cerebral vascular accident) Current Visit: No Status: Chronic Qualifiers: CVA mechanism: unspecified Qualified Code(s): I63.9 - Cerebral infarction, unspecified (7) Lung cancer Current Visit: Yes Status: Acute Diagnosed 3 months ago. First chemotherapy session was about 09/24/16. Appears to be getting worse with metastases. Hem/Onc following. Await their input regarding the patient's prognosis and if the patient will still be a candidate for chemo once infection resolved. Palliative care has been consulted. Code status discussed and noted. Qualifiers: Laterality: left Lung location: unspecified part of lung Qualified Code(s ): C34.92 - Malignant neoplasm of unspecified part of left bronchus or lung (8) Cancer associated pain Current Visit: Yes Status: Chronic Palliative care consulted. - Subjective Interval history: Patient seen and examined. No acute events noted overnight. Patient lying in bed , states he feels about the same today as he did yesterday. Denies fevers or chills. Afebrile overnight per documentation. Denies chest pain but states his shortness of breath is better and he is not coughing as much. Continues to complain of diffuse abdominal pain and states he feels constipated. He is unsure of last BM, but per documentation it was 12/01. He states his appetite is poor and he did not eat anything this morning. He denies nausea, vomiting, or diarrhea. He denies urinary complaints. He denies oral thrush or skin lesions. Infect Dis PN-Objective Data - Labs CBC & Chem 7: 12/09/16 05:48 12/09/16 05:48 Labs: Laboratory Results - last 24 hr 12/09/16 12/09/16 12/09/16 05:48 05:48 05:48 WBC 22.0 H RBC 3.55 L Hgb 9.9 L Hct 33.7 L MCV 94.9 MCH 27.9 L MCHC 29.4 L RDW 13.9 Plt Count 218 MPV 10.3 Immature Gran % 2.0 Seg Neutrophils % 72.8 Lymphocytes % 12.3 Monocytes % 12.6 Eosinophils % 0.1 Basophils % 0.2 Neutrophils # 16.0 H Lymphocytes # 2.7 Monocytes # 2.8 H Eosinophils # 0.0 Basophils # 0.0 Sodium 144 Potassium 3.3 L Chloride 95 L Carbon Dioxide 38 H BUN 23 Creatinine 2.09 H Est GFR ( Amer) 40 L Est GFR (Non-Af Amer) 33 L BUN/Creatinine Ratio 11 Glucose 81 Calculated Osmolality 301 H Calcium 10.3 Phosphorus 4.2 Magnesium 1.0 L Total Bilirubin 0.3 AST 23 ALT 9 Alkaline Phosphatase 115 Serum Total Protein 6.2 Albumin 1.9 L Globulin 4.3 H Albumin/Globulin Ratio 0.4 L Cultures: Cultures 12/02/16 16:04 Blood Culture - Final Peripheral Venipuncture No growth. 12/02/16 16:04 Blood Culture - Final Peripheral Venipuncture No growth. 12/04/16 14:26 Respiratory Culture - Final Left Upper Lobe Lung Escherichia coli 12/04/16 14:26 Acid Fast Stain - Final Left Upper Lobe Lung 12/03/16 08:00 Sputum Culture - Final Sputum Escherichia coli 12/04/16 14:26 Gram Stain - Final Left Upper Lobe Lung 11/25/16 17:06 Blood Culture - Final Peripheral Venipuncture No growth. 11/25/16 17:06 Blood Culture - Final Peripheral Venipuncture No growth. 11/23/16 08:30 Blood Culture - Final Peripheral Venipuncture No growth. 11/23/16 08:39 Blood Culture - Final Peripheral Venipuncture No growth. 11/25/16 19:05 Legionella Antigen - Final Urine,Clean Catch 11/20/16 15:00 Sputum Culture - Final Sputum Serology 12/04/16 11/25/16 Range/Units 14:26 11:30 Fluid Source left upper lobe Fluid Volume 20 mL Fluid Appearance Clear (Clear) Fluid RBC TNP Fld Tot Nucleated Cell TNP Fluid Seg Neutrophil % 92.0 % Fluid Lymphocytes % 5.0 % Fluid Other Cells % 3.0 % Chlamy pneumoniae PCR Not Detected (Not Detect) Adenovirus (PCR) Not Detected (Not Detect) B. pertussis DNA (PCR) Not Detected (Not Detect) Coronavirus OC43 (PCR) Not Detected (Not Detect) Coronavirus HKU1 (PCR) Not Detected (Not Detect) Coronavirus 229E (PCR) Not Detected (Not Detect) Coronavirus NL63 (PCR) Not Detected (Not Detect) Human Metapneumovir PCR Not Detected (Not Detect) Influenza A (H1) PCR Not Detected (Not Detect) Influ A (H1N1/09) PCR Not Detected (Not Detect) Influenza A (H3) PCR Not Detected (Not Detect) Influenza A Untype (PCR) Not Detected (Not Detect) Influenza Type B (PCR) Not Detected (Not Detect) M.pneumoniae DNA (PCR) Not Detected (Not Detect) Parainfluenza 1 (PCR) Not Detected (Not Detect) Parainfluenza 2 (PCR) Not Detected (Not Detect) Parainfluenza 3 (PCR) Not Detected (Not Detect) Parainfluenza 4 (PCR) Not Detected (Not Detect) RSV (PCR) Not Detected (Not Detect) Entero/Rhino (PCR) Not Detected (Not Detect) - Impressions Impressions KUB X-Ray 12/08/16 12:10 IMPRESSION: 1. No significant stool identified within the colon. Nonspecific bowel gas pattern with no evidence for definite obstructive process. 2. Left pleural effusion. D/ / Wilfredo Cornelius MD / Wilfredo Cornelius MD Interpreting Provider: Wilfredo Cornelius MD Chest X-Ray 12/09/16 04:00 IMPRESSION: 1. Interval worsening in opacification of the left hemithorax with re-demonstration of the patient's known left upper lobe mass with suspected worsened volume loss in the left upper lobe. 2. Moderate left pleural effusion. D/ / 12/09/2016 08:14:44 Jeff Bullock MD / Lisa Cherry Interpreting Provider: Jeff Bullock MD Exam - Constitutional Vitals: Temp Pulse Resp BP Pulse Ox 98.9 F 129 20 108/65 96 12/09/16 07:55 12/09/16 07:55 12/09/16 07:55 12/09/16 07:55 12/09/16 07:55 General appearance: cooperative, no acute distress, thin Exam: Ill-appearing, but not toxic. - Head Head exam: Present: atraumatic, normal inspection, normocephalic - Eye Eye exam: Present: EOMI, normal appearance, PERRL Pupils: Present: normal accommodation - ENT ENT exam: Present: mucous membranes moist - Neck Neck exam: Present: normal inspection - Respiratory Respiratory exam: Present: decreased breath sounds (Throughout). Absent: rales , respiratory distress, wheezes, tachypnea - Cardiovascular Cardiovascular exam: Present: +S1, +S2, tachycardia. Absent: irregular rhythm - GI/Abdominal GI/Abdominal exam: Present: distended, firm, normal bowel sounds, tenderness ( generalized) - Extremities Exam Extremities exam: Present: normal inspection. Absent: joint swelling, pedal edema, tenderness - Neurological Exam Neurological exam: Present: alert, oriented X3, no focal deficits - Psychiatric Psychiatric exam: Present: normal affect, normal mood - Skin Skin exam: Present: dry, intact, normal color, warm - Additional findings Additional findings: A-port noted to the right upper chest, accessed with 10G Ralgand needle. Transparent dressing C/D/I. No erythema, warmth, or drainage noted. Consult Discharge Plan - Plan Referrals: Alexander Cox DO [Non-Partnered Physician] - (TRIED TO CALL AND MAKE AN APPOINTMENT THE OFFICE IS CLOSED ON FRIDAYS. ) Shabana Llamas DO [Primary Care Provider] - 12/11/16 10:20 am OsGerardo georges MD [Partnered Physician] - 12/08/16 9:30 am - Attending Attestation I examined this patient and my medical decision-making was reviewed with the [employer]/PA/Advanced Practice Nurse/Resident Physician. I agree with the documented findings, disposition and treatment plan as described except to the extent set forth below. I spoke with the pulmonary doctor, he thinks prognosis is very poor and he doesn 't think the stent will help. He might have a lot of bleeding. Overall prognosis
[2016-12-09] MEDS: Ipratropium/Albuterol Neb 3 ML IH SCH ×4 (10:35→20:34)
[2016-12-09] MEDS: GuaiFENesin/Dextromethorphan TABLET PO SCH ×2 (11:13→22:11)
[2016-12-09 14:25] LABS: RVP Body Fluid Source BAL LUL
[2016-12-09] MEDS: Furosemide 20 MG/2 ML VIAL IVP SCH (15:18)
[2016-12-09] MEDS: Dexamethasone 4 MG/ML VIAL IVP SCH ×2 (15:22→22:11)
--- NOTE | 2016-12-09 16:30 | Pulmonology Progress Note ---
Date of Encounter: 12/09/16 Time of Encounter: 10:30 Assessment and Plan (1) Pneumonia Current Visit: Yes Status: Acute Patient is seen with primary team and palliative care service with evidence of deterioration and patient appeared to be uncomfortable. Unfortunately with overall poor functional capacity and his advance cancer and intubation with debulking of this tumor is very risky and I explained this to the patient and his family at the bedside. I also recommended radiation oncology consultation, hoping that would be less invasive. Qualifiers: Pneumonia type: due to unspecified organism Laterality: left Lung location: upper lobe of lung Qualified Code(s): J18.1 - Lobar pneumonia, unspecified organism (2) Lung cancer Current Visit: Yes Status: Acute Qualifiers: Laterality: left Lung location: unspecified part of lung Qualified Code(s ): C34.92 - Malignant neoplasm of unspecified part of left bronchus or lung Subjective Principal diagnosis: Pneumonia Interval history: Patient continued to have generalized body ache and overall condition is deteriorating Objective PUL Vital signs: Last Vital Signs Temp 98.1 F 12/09/16 16:06 Pulse 111 12/09/16 16:06 Resp 29 12/09/16 16:06 BP 95/64 12/09/16 16:06 Pulse Ox 95 12/09/16 16:06 General appearance: appears uncomfortable Eyes: nonicteric ENT: oropharynx dry Neck: supple Effort: mildly labored Auscultation: bilateral: diminished breath sounds Percussion: bilateral: not dull Cardiovascular: regular rate and rhythm Gastrointestinal: normoactive bowel sounds Extremities: no cyanosis other (Lethargic, however follows commands) depressed Results - Laboratory Findings CBC and BMP: 12/09/16 05:48 12/09/16 05:48 ABG ABG pH 7.44 pH Units (7.32-7.45) 11/19/16 23:45 ABG pCO2 46 mmHg (35-45) H 11/19/16 23:45 ABG pO2 62 mmHg (85-104) L 11/19/16 23:45 ABG O2 Saturation 92 % (95-98) L 11/19/16 23:45 PT/INR, D-dimer PT 14.1 Seconds (9.4-12.1) H 11/20/16 00:10 Abnormal lab findings: Abnormal lab results WBC 22.0 K/mcL (4.3-11.1) H 12/09/16 05:48 RBC 3.55 M/mcL (4.19-5.50) L 12/09/16 05:48 Hgb 9.9 g/dL (12.9-16.9) L 12/09/16 05:48 Hct 33.7 % (37.5-50.1) L 12/09/16 05:48 MCH 27.9 pg (28.0-33.3) L 12/09/16 05:48 MCHC 29.4 g/dL (31.6-35.5) L 12/09/16 05:48 Neutrophils # 16.0 K/mcL (1.6-8.9) H 12/09/16 05:48 Monocytes # 2.8 K/mcL (0.0-1.3) H 12/09/16 05:48 Nucleated RBCs/100 WBC 0.1 /100 WBC (0) H 12/06/16 06:04 PT 14.1 Seconds (9.4-12.1) H 11/20/16 00:10 APTT 24.9 Seconds (26.0-36.0) L 11/20/16 00:10 ABG pCO2 46 mmHg (35-45) H 11/19/16 23:45 ABG pO2 62 mmHg (85-104) L 11/19/16 23:45 ABG HCO3 31.2 mEQ/L (21-27) H 11/19/16 23:45 ABG Total CO2 32.6 mEq/L (20-26) H 11/19/16 23:45 ABG O2 Saturation 92 % (95-98) L 11/19/16 23:45 ABG Base Excess 6.1 mEq/L (-2.0 to 3.0) H 11/19/16 23:45 Potassium 3.3 mEq/L (3.5-4.5) L 12/09/16 05:48 Chloride 95 mEq/L (98-109) L 12/09/16 05:48 Carbon Dioxide 38 mEq/L (19-29) H 12/09/16 05:48 Creatinine 2.09 mg/dL (0.72-1.25) H 12/09/16 05:48 Est GFR ( Amer) 40 (> 60) L 12/09/16 05:48 Est GFR (Non-Af Amer) 33 (> 60) L 12/09/16 05:48 POC Glucose 97 (58-89) H 12/04/16 11:47 Calculated Osmolality 301 (280-300) H 12/09/16 05:48 Magnesium 1.0 mg/dL (1.6-2.6) L 12/09/16 05:48 Iron 14 mcg/dL (65-175) L 11/25/16 09:45 % Saturation 10 % (20-55) L 11/25/16 09:45 Transferrin 103 mg/dL (174-364) L 11/25/16 09:45 Troponin I 0.05 ng/mL (0-0.03) H* 11/20/16 16:26 Albumin 1.9 g/dL (3.5-5.0) L 12/09/16 05:48 Globulin 4.3 g/dL (2.4-3.5) H 12/09/16 05:48 Albumin/Globulin Ratio 0.4 (1.1-2.2) L 12/09/16 05:48 Amylase 18 Units/L (25-125) L 11/25/16 16:04 Vitamin B12 865 pg/mL (213-816) H 11/25/16 09:45 Procalcitonin 0.87 ng/mL (<=0.10) H 11/25/16 16:04 Vancomycin Trough 71.6 mcg/mL (10-20) H* 11/24/16 03:25 - Microbiology Findings Microbiology Findings: Microbiology, Last 48 Hours 12/02/16 16:04 Blood Culture - Final Peripheral Venipuncture No growth. 12/02/16 16:04 Blood Culture - Final Peripheral Venipuncture No growth. - Clinical Findings Intake & Output: Intake & Output 12/09/16 12/09/16 12/09/16 07:59 15:59 23:59 Intake Total 500 / 500 100 / 100 Output Total 325 / 325 Balance 500 / 500 -225 / -225 Consult Discharge Plan - Plan Referrals: Alexander Cox DO [Non-Partnered Physician] - (TRIED TO CALL AND MAKE AN APPOINTMENT THE OFFICE IS CLOSED ON FRIDAYS. ) Shabana Llamas DO [Primary Care Provider] - 12/11/16 10:20 am Gerardo Kendrick MD [Partnered Physician] - 12/08/16 9:30 am
[2016-12-09 18:08] LABS: HSV Source BAL LUL
[2016-12-10] MEDS: Ipratropium/Albuterol Neb 3 ML IH SCH ×7 (00:04→23:18)
[2016-12-10] MEDS: *HR* Heparin 5,000 UNIT/ML VIAL SQ SCH ×4 (00:55→23:39)
[2016-12-10] MEDS: Dexamethasone 4 MG/ML VIAL IVP SCH ×4 (02:20→19:44)
[2016-12-10 06:07] LABS: Basophils % 0.1 %; Hematocrit 30.2 % (37.5-50.1); Hemoglobin 9.2 g/dL (12.9-16.9); Immature Granulocytes % 1.7 % (0-4); Lymphocytes # 1.1 K/mcL (0.6-4.6); Lymphocytes % 6.1 %; Mean Corpuscular HGB Conc 30.5 g/dL (31.6-35.5); Mean Corpuscular Hemoglobin 28.6 pg (28.0-33.3); Mean Corpuscular Volume 93.8 fL (83.0-100.0); Mean Platelet Volume 10.6 fL (9.4-12.4); Monocytes # 0.9 K/mcL (0.0-1.3); Monocytes % 4.7 %; Neutrophils # 15.7 K/mcL (1.6-8.9); Platelet Count 234 K/mcL (140-400); Red Blood Count 3.22 M/mcL (4.19-5.50); Segmented Neutrophils % 87.4 %
[2016-12-10 07:05] LABS: Albumin/Globulin Ratio 0.5 (1.1-2.2); Bilirubin,Total 0.2 mg/dL (0.2-1.2); Calcium 10.1 mg/dL (8.6-10.8); Globulin 4.1 g/dL (2.4-3.5); Potassium 3.3 mEq/L (3.5-4.5)
[2016-12-10 07:09] LABS: Albumin 1.9 g/dL (3.5-5.0)
[2016-12-10 07:52] LABS: ABG HCO3 48.3 mEQ/L (21-27); ABG Oxygen Saturation 91 % (95-98); ABG PCO2 62 mmHg (35-45); ABG PO2 55 mmHg (85-104); ABG TCO2 50.2 mEq/L (20-26)
[2016-12-10 07:54] LABS: Blood Gas FiO2 36 %
[2016-12-10] MEDS: Furosemide 20 MG/2 ML VIAL IVP SCH (09:00)
--- NOTE | 2016-12-10 09:04 | Internal Med Progress Note ---
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 ABG shows Metabolic alkalosis with superimposed respiratory acidosis. Patient currently on 4.5 L on oxygen via nasal cannula. Baseline is 2 L of oxygen at home (2) Primary lung cancer with metastasis from lung to other site Current Visit: Yes Status: Chronic Assessment and plan: Adenocarcinoma with Brain mets. Patient needs therapy at home. PT and OT has seen patient and recommends therapy. Patient DNRCC - A. Patient goal is returm home HH services. SS involved in case and working on home set-up. Oncology to treat with immunotherapy either alone or in combination chemotherapy if his overall condition permits and does not anticipate any issues with immunotherapy based on kidney function. Will cont to follow. Qualifiers: Laterality: unspecified laterality Qualified Code(s): C34.90 - Malignant neoplasm of unspecified part of unspecified bronchus or lung (3) Postobstructive pneumonia Current Visit: Yes Status: Acute Assessment and plan: See above. Continue Rocephin (Day 5) and supplement oxygen (4) Decreased appetite Current Visit: Yes Status: Acute Assessment and plan: Patient had bowel movement 2 yesterday. Consider appetite stimulation, will discuss with palliative care. (5) Acute kidney injury Current Visit: Yes Status: Acute Assessment and plan: Suspect due to multiple factors including sepsis, vancomycin. Renal function improving gradually and nephrology has recommended discharge Oncology does not anticipate any issues with immunotherapy based on kidney function. (6) Lung cancer Current Visit: Yes Status: Acute Assessment and plan: reports that he has received one cycle of chemotherapy so far. has possible mets in liver as well as adrenals appreciate oncology recommendations, patient wishes to f/u with oncology treatment with immunotherapy either alone or in combination chemotherapy if his overall condition permits Qualifiers: Laterality: left Lung location: unspecified part of lung Qualified Code(s ): C34.92 - Malignant neoplasm of unspecified part of left bronchus or lung (7) Sepsis Current Visit: Yes Status: Acute Assessment and plan: Related to gram-negative sepsis secondary to gram-negative pneumonia/ E coli. Infectious disease following. Continue current Rocephin treatment Qualifiers: Sepsis type: sepsis due to unspecified organism Qualified Code(s): A41.9 - Sepsis, unspecified organism (8) Therapeutic opioid induced constipation Current Visit: Yes Status: Acute Assessment and plan: Patient had bowel movement 2 yesterday. Continue laxatives when necessary. (9) Cancer associated pain Current Visit: Yes Status: Chronic Assessment and plan: Patient is on oxycodone and probably would require heavy pain medication as outpatient to he has been referred to palliative care. Discontinue morphine due to renal insufficiency (10) CVA (cerebral vascular accident) Current Visit: No Status: Chronic Assessment and plan: Continue to monitor. Qualifiers: CVA mechanism: unspecified Qualified Code(s): I63.9 - Cerebral infarction, unspecified (11) DVT prophylaxis Current Visit: No Status: Acute Assessment and plan: Heparin and SCDs Patient seen and examined, case discussed with him and agreed upon with Dr. Redding - Subjective Interval history: Patient resting in bed on 4.5L supplemental O2, denies any new complaints, and continues to have decreased appetite. Pt denies worsening SOB, fevers, chills, vomiting, diarrhea, or dysuria. States he had BM 2 yesterday. - Constitutional Vitals: Temp Pulse Resp BP Pulse Ox 97.6 F 112 36 109/73 89 12/10/16 08:58 12/10/16 08:58 12/10/16 08:58 12/10/16 08:58 12/10/16 08:58 General appearance: Present: cachectic, cooperative, A&O X 3, pleasant, underweight, answers questions appropriately Exam: Lethargic, 4.5 L supplemental oxygen via nasal cannula - Head Head exam: Present: atraumatic, normocephalic - Eye Eye exam: Present: PERRL, conjuntiva pink, sclera anicteric Pupils: Present: PERRL - ENT ENT exam: Present: mucous membranes dry, normal oropharynx - Neck Neck exam general surgery: Present: supple, trachea midline. Absent: lymphadenopathy - Respiratory Respiratory exam: Present: decreased breath sounds (Left greater than right). Absent: accessory muscle use, CTAB, rales, respiratory distress, rhonchi, wheezes, tachypnea - Cardiovascular Cardiovascular exam: Present: +S1, +S2, tachycardia. Absent: diastolic murmur, gallop, rubs, systolic murmur - GI/Abdominal GI/Abdominal exam: Present: normal bowel sounds, soft, no peritoneal signs. Absent: distended, tenderness - Extremities Exam Extremities exam: Present: warm, radial pulses palpable and symetrical. Absent : calf tenderness, cyanotic, pedal edema - Neurological Exam Neurological exam: Present: CN II-XII intact, oriented X3, no focal deficits. Absent: pronater drift, facial droop, speech deficit - Psychiatric Psychiatric exam: Present: depressed, flat affect - Skin Skin exam: Present: dry, intact, warm Internal Medicine: Result - Labs CBC & Chem 7: 12/10/16 04:05 12/10/16 04:05 Labs: Short CBC 12/10/16 Range/Units 04:05 WBC 18.0 H (4.3-11.1) K/mcL Hgb 9.2 L (12.9-16.9) g/dL Hct 30.2 L (37.5-50.1) % Plt Count 234 (140-400) K/mcL Neutrophils # 15.7 H (1.6-8.9) K/mcL BMP 12/10/16 04:05 Sodium 142 Potassium 3.3 L Chloride 93 L Carbon Dioxide 40 H* BUN 26 Creatinine 1.82 H Glucose 158 H Calcium 10.1 Liver Function 12/10/16 Range/Units 04:05 Total Bilirubin 0.2 (0.2-1.2) mg/dL AST 19 (5-34) Units/L ALT 7 (0-55) Units/L Alkaline Phosphatase 102 (38-126) Units/L Albumin 1.9 L (3.5-5.0) g/dL - ABG Interpretation ABG results: ABG ABG pH 7.50 pH Units (7.32-7.45) H 12/10/16 07:43 ABG pCO2 62 mmHg (35-45) H 12/10/16 07:43 ABG pO2 55 mmHg (85-104) L 12/10/16 07:43 ABG O2 Saturation 91 % (95-98) L 12/10/16 07:43 PT/INR, D-dimer PT 14.1 Seconds (9.4-12.1) H 11/20/16 00:10 Interpretation: respiratory acidosis (Superimposed), metabolic alkalosis ( Primary) Additional comments: Primary metabolic alkalosis, with superimposed respiratory acidosis (expected Pco2 = 53 - 57) expected pH = 7.51 expected CO2 = 63 expected HCO3- = 47 - Impressions Impressions Chest X-Ray 12/09/16 04:00 IMPRESSION: 1. Interval worsening in opacification of the left hemithorax with re-demonstration of the patient's known left upper lobe mass with suspected worsened volume loss in the left upper lobe. 2. Moderate left pleural effusion. D/ / 12/09/2016 08:14:44 Jeff Bullock MD / Lisa Cherry Interpreting Provider: Jeff Bullock MD Consult Discharge Plan - Plan Referrals: Alexander Cox DO [Non-Partnered Physician] - (TRIED TO CALL AND MAKE AN APPOINTMENT THE OFFICE IS CLOSED ON FRIDAYS. ) Shabana Llamas DO [Primary Care Provider] - 12/11/16 10:20 am Gerardo Kendrick MD [Partnered Physician] - 12/08/16 9:30 am <Bhanu Aquino H - Last Filed: 12/10/16 11:41> Date of Encounter: 12/10/16 - Constitutional Vitals: Temp Pulse Resp BP Pulse Ox 97.6 F 110 28 105/69 90 12/10/16 11:12 12/10/16 11:12 12/10/16 11:12 12/10/16 11:12 12/10/16 11:12 Internal Medicine: Result - Labs CBC & Chem 7: 12/10/16 04:05 12/10/16 04:05 Labs: Short CBC 12/10/16 Range/Units 04:05 WBC 18.0 H (4.3-11.1) K/mcL Hgb 9.2 L (12.9-16.9) g/dL Hct 30.2 L (37.5-50.1) % Plt Count 234 (140-400) K/mcL Neutrophils # 15.7 H (1.6-8.9) K/mcL BMP 12/10/16 04:05 Sodium 142 Potassium 3.3 L Chloride 93 L Carbon Dioxide 40 H* BUN 26 Creatinine 1.82 H Glucose 158 H Calcium 10.1 Liver Function 12/10/16 Range/Units 04:05 Total Bilirubin 0.2 (0.2-1.2) mg/dL AST 19 (5-34) Units/L ALT 7 (0-55) Units/L Alkaline Phosphatase 102 (38-126) Units/L Albumin 1.9 L (3.5-5.0) g/dL - ABG Interpretation ABG results: ABG ABG pH 7.50 pH Units (7.32-7.45) H 12/10/16 07:43 ABG pCO2 62 mmHg (35-45) H 12/10/16 07:43 ABG pO2 55 mmHg (85-104) L 12/10/16 07:43 ABG O2 Saturation 91 % (95-98) L 12/10/16 07:43 PT/INR, D-dimer PT 14.1 Seconds (9.4-12.1) H 11/20/16 00:10 - Attending Attestation Stop Lasix and bicarbonate due to metabolic acidosis We will reschedule his radiology oncology consult I examined this patient and my medical decision-making was reviewed with the [employer]/PA/Advanced Practice Nurse/Resident Physician. I agree with the documented findings, disposition and treatment plan as described except to the extent set forth below.
--- NOTE | 2016-12-10 09:46 | Palliative Progress Note ---
Date of Encounter: 12/10/16 Time of Encounter: 09:00 - Assessment and plan (1) Cancer associated pain Current Visit: Yes Status: Chronic Assessment and plan: Mr. Bliss has used 2 doses of oxycodone in the past 24 hours. Interval every 2 hours as needed and continue to monitor. He is resistant to the idea of starting oxyCONTIN again. (2) Sepsis Current Visit: Yes Status: Acute Qualifiers: Sepsis type: sepsis due to unspecified organism Qualified Code(s): A41.9 - Sepsis, unspecified organism (3) Acute kidney injury Current Visit: Yes Status: Acute Assessment and plan: Resolving (4) Counseling regarding advanced directives and goals of care Current Visit: Yes Status: Acute Assessment and plan: Mr. Bliss is currently planning to return home with home health services through [facility]. rehab services aide following for discharge needs. Will need oncology follow up at some point. Mr. Bliss is interested in continuing antineoplastic treatments. (5) Therapeutic opioid induced constipation Current Visit: Yes Status: Acute Assessment and plan: Last documented BM was on 12/09/16 x2. Mr. Bliss continues to take the Senna 2 tablets BID, and MiraLax. Continue with daily laxatives. (6) Acute on chronic respiratory failure with hypoxia and hypercapnia Current Visit: Yes Status: Acute - Time Spent With Patient Total time spent is greater than 50% in coordination of care (as documented) at patient's floor/unit and/or counseling patient: - Subjective Interval history: Mr. Bliss is lying in bed, lethargic appearing, but eventually wakes and is able to converse. Denies pain or difficulty breathing. Hypoxic with an O2 saturation of 88% on 4 L/min. Nurse at bedside. Mr. Bliss is able to describe children and his social situation in detail. - Constitutional Vitals: Abnormal lab results WBC 18.0 K/mcL (4.3-11.1) H 12/10/16 04:05 RBC 3.22 M/mcL (4.19-5.50) L 12/10/16 04:05 Hgb 9.2 g/dL (12.9-16.9) L 12/10/16 04:05 Hct 30.2 % (37.5-50.1) L 12/10/16 04:05 MCHC 30.5 g/dL (31.6-35.5) L 12/10/16 04:05 Neutrophils # 15.7 K/mcL (1.6-8.9) H 12/10/16 04:05 Nucleated RBCs/100 WBC 0.1 /100 WBC (0) H 12/06/16 06:04 PT 14.1 Seconds (9.4-12.1) H 11/20/16 00:10 APTT 24.9 Seconds (26.0-36.0) L 11/20/16 00:10 ABG pH 7.50 pH Units (7.32-7.45) H 12/10/16 07:43 ABG pCO2 62 mmHg (35-45) H 12/10/16 07:43 ABG pO2 55 mmHg (85-104) L 12/10/16 07:43 ABG HCO3 48.3 mEQ/L (21-27) H 12/10/16 07:43 ABG Total CO2 50.2 mEq/L (20-26) H 12/10/16 07:43 ABG O2 Saturation 91 % (95-98) L 12/10/16 07:43 ABG Base Excess 22.0 mEq/L (-2.0 to 3.0) H 12/10/16 07:43 Potassium 3.3 mEq/L (3.5-4.5) L 12/10/16 04:05 Chloride 93 mEq/L (98-109) L 12/10/16 04:05 Carbon Dioxide 40 mEq/L (19-29) H* 12/10/16 04:05 Creatinine 1.82 mg/dL (0.72-1.25) H 12/10/16 04:05 Est GFR ( Amer) 47 (> 60) L 12/10/16 04:05 Est GFR (Non-Af Amer) 38 (> 60) L 12/10/16 04:05 Glucose 158 mg/dL (70-99) H 12/10/16 04:05 POC Glucose 97 (58-89) H 12/04/16 11:47 Calculated Osmolality 302 (280-300) H 12/10/16 04:05 Magnesium 1.0 mg/dL (1.6-2.6) L 12/10/16 04:05 Iron 14 mcg/dL (65-175) L 11/25/16 09:45 % Saturation 10 % (20-55) L 11/25/16 09:45 Transferrin 103 mg/dL (174-364) L 11/25/16 09:45 Troponin I 0.05 ng/mL (0-0.03) H* 11/20/16 16:26 Albumin 1.9 g/dL (3.5-5.0) L 12/10/16 04:05 Globulin 4.1 g/dL (2.4-3.5) H 12/10/16 04:05 Albumin/Globulin Ratio 0.5 (1.1-2.2) L 12/10/16 04:05 Amylase 18 Units/L (25-125) L 11/25/16 16:04 Vitamin B12 865 pg/mL (213-816) H 11/25/16 09:45 Procalcitonin 0.87 ng/mL (<=0.10) H 11/25/16 16:04 Vancomycin Trough 71.6 mcg/mL (10-20) H* 11/24/16 03:25 - Respiratory Respiratory exam: Present: accessory muscle use (mild abdominal breathing), tachypnea (respiratory rate 36). Absent: respiratory distress - Cardiovascular Cardiovascular exam: Present: RRR, tachycardia - GI/Abdominal GI/Abdominal exam: Present: soft. Absent: tenderness - Extremities Exam Extremities exam: Present: normal inspection. Absent: pedal edema - Neurological Exam Neurological exam: Present: alert, oriented X3, no focal deficits, strengths equal and symetr throughout (global weakness) - Psychiatric Psychiatric exam: Absent: agitated, anxious - Skin Skin exam: Present: dry, normal color, warm Palliative Quality Palliative Quality: Screen for Code Status: Yes, Screen for Goals of Care: Yes, Screen for Pain: Yes, If Pain Regimen Started, Initiate Bowel Regimen: Yes, Screen for Nausea/Vomitting: Yes Code Status: 11/20/16 03:31 Resuscitation Status: Active [RES] Routine Comment: Resuscitation Status: Full Code Resuscitation Status: Active [RES] Routine Comment: Resuscitation Status: DNR-Comfort Care-Arrest - Labs CBC & Chem 7: 12/10/16 04:05 12/10/16 04:05 Labs: Laboratory Results - last 24 hr 12/10/16 12/10/16 12/10/16 04:05 04:05 07:43 WBC 18.0 H RBC 3.22 L Hgb 9.2 L Hct 30.2 L MCV 93.8 MCH 28.6 MCHC 30.5 L RDW 14.0 Plt Count 234 MPV 10.6 Immature Gran % 1.7 Seg Neutrophils % 87.4 Lymphocytes % 6.1 Monocytes % 4.7 Eosinophils % 0.0 Basophils % 0.1 Neutrophils # 15.7 H Lymphocytes # 1.1 Monocytes # 0.9 Eosinophils # 0.0 Basophils # 0.0 ABG pH 7.50 H ABG pCO2 62 H ABG pO2 55 L ABG HCO3 48.3 H ABG Total CO2 50.2 H ABG O2 Saturation 91 L ABG Base Excess 22.0 H Blood Gas Modality NC Inspired O2 36 Sodium 142 Potassium 3.3 L Chloride 93 L Carbon Dioxide 40 H* BUN 26 Creatinine 1.82 H Est GFR ( Amer) 47 L Est GFR (Non-Af Amer) 38 L BUN/Creatinine Ratio 14 Glucose 158 H Calculated Osmolality 302 H Calcium 10.1 Magnesium 1.0 L Total Bilirubin 0.2 AST 19 ALT 7 Alkaline Phosphatase 102 Serum Total Protein 6.0 Albumin 1.9 L Globulin 4.1 H Albumin/Globulin Ratio 0.5 L - Impressions Impressions Chest X-Ray 12/09/16 04:00 IMPRESSION: 1. Interval worsening in opacification of the left hemithorax with re-demonstration of the patient's known left upper lobe mass with suspected worsened volume loss in the left upper lobe. 2. Moderate left pleural effusion. D/ / 12/09/2016 08:14:44 Jeff Bullock MD / Lisa Cherry Interpreting Provider: Jeff Bullock MD - ABG Interpretation ABG results: ABG ABG pH 7.50 pH Units (7.32-7.45) H 12/10/16 07:43 ABG pCO2 62 mmHg (35-45) H 12/10/16 07:43 ABG pO2 55 mmHg (85-104) L 12/10/16 07:43 ABG O2 Saturation 91 % (95-98) L 12/10/16 07:43 PT/INR, D-dimer PT 14.1 Seconds (9.4-12.1) H 11/20/16 00:10 Consult Discharge Plan - Plan Referrals: Alexander Cox DO [Non-Partnered Physician] - (TRIED TO CALL AND MAKE AN APPOINTMENT THE OFFICE IS CLOSED ON FRIDAYS. ) Shabana Llamas DO [Primary Care Provider] - 12/11/16 10:20 am Gerardo Kendrick MD [Partnered Physician] - 12/08/16 9:30 am
[2016-12-10] MEDS: Folic Acid 1 MG TABLET PO SCH (10:10)
[2016-12-10] MEDS: Aspirin 81 MG TAB.CHEW PO SCH (10:10)
[2016-12-10] MEDS: lamoTRIgine 25 MG TABLET PO SCH ×2 (10:10→21:24)
[2016-12-10] MEDS: amLODIPine 5 MG TABLET PO SCH ×2 (10:11→21:24)
[2016-12-10] MEDS: Nicotine 21 MG PATCH.TD24 TD SCH (10:11)
[2016-12-10] MEDS: GuaiFENesin/Dextromethorphan TABLET PO SCH ×2 (10:11→21:24)
[2016-12-10] MEDS: Sennosides/Docusate Sodium TABLET PO SCH ×2 (10:12→21:24)
[2016-12-10] MEDS: Metoprolol XL (24 HR) Succ 50 MG TAB.ER.24H PO SCH (10:13)
--- NOTE | 2016-12-10 13:02 | Infectious Disease Progress No ---
Date of Encounter: 12/10/16 Time of Encounter: 12:59 - Assessment and Plan (1) Sepsis Status: Resolved The patient had three SIRS criteria on admission (leukocytosis, tachycardia, and fever) on admission. He continues to have tachycardia, but was afebrile overnight. His WBC remains elevated, but improved today. Sepsis originally secondary to post-obstructive PNA. High index of suspicion that persistent leukocytosis due to worsening PNA. Blood cultures drawn 11/20/16 x 2 sets, 11/23/16 x 2 sets, and 11/25/16 x 2 sets are negative. Repeat blood cultures x 3 sets drawn 12/02/16 are negative as well. Qualifiers: Sepsis type: sepsis due to unspecified organism Qualified Code(s): A41.9 - Sepsis, unspecified organism (2) Pneumonia Status: Acute Causative organism E. coli. Likely post-obstructive due to large lung mass. CT of the chest 11/25/16 shows unchanged mass-like opacity in the left hilar region with superimposed left upper lobe consolidation. 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 Repeat CT scan of the chest 12/02/16 shows that the left hilar mass appears slightly larger than on the previous study. According to the radiologist, this causes obstruction of the left upper lobe bronchus and narrowing of the lingular bronchus. Airspace disease in the left upper lobe and lingula most likely represent postobstructive pneumonia. There is also increased interstitial markings in the left upper lobe and lingula and to a lesser degree of the left lower lobe likely representing lymphangitic tumor infiltration or hilar lymph node obstruction. Status post bronch 12/04/16. Endo report reviewed. BAL culture grew E. coli. Consider aspiration as well. Speech therapy note reviewed. No formal swallow evaluation completed. Repeat CXR shows interval worsening in the opacification of the left hemithorax with re-demonstration of the patient's known left upper lobe mass with suspected worsened volume loss of the left upper lobe. The patient's lung mass is likely contributing to the persistent/worsening PNA and without decreasing the tumor size, it is unlikely that the PNA will resolve. Pulmonology consulted and following. Patient not a candidate for bronchial stenting due to high risk for bleeding. Continue Rocephin 1 gram IV daily. Duration of treatment depends on the clinical picture. Monitor renal function and dose-adjust antibiotics. Overall prognosis poor given the patient's large tumor size and persistent pneumonia. Qualifiers: Pneumonia type: due to unspecified organism Laterality: left Lung location: upper lobe of lung Qualified Code(s): J18.1 - Lobar pneumonia, unspecified organism (3) Acute kidney injury Status: Resolved Likely secondary to vanc toxicity. Serum creatinine continues to improve. Continue to trend. Avoid nephrotoxins as able and dose-adjust antibiotics. (4) Vancomycin poisoning Status: Resolved Qualifiers: Encounter type: initial encounter Injury intent: accidental or unintentional Qualified Code(s): T36.8X1A - Poisoning by other systemic antibiotics, accidental (unintentional), initial encounter (5) Abdominal pain Status: Resolved Etiology not clear. KUB does not show obstruction or ileus. CT abdomen without acute infectious process x 2. Pain management per the primary and palliative care teams. Qualifiers: Abdominal location: left upper quadrant Qualified Code(s): R10.12 - Left upper quadrant pain (6) CVA (cerebral vascular accident) Status: Chronic Qualifiers: CVA mechanism: unspecified Qualified Code(s): I63.9 - Cerebral infarction, unspecified (7) Lung cancer Status: Chronic Diagnosed 3 months ago. First chemotherapy session was about 09/24/16. Appears to be getting worse with metastases. Hem/Onc following. Await their input regarding the patient's prognosis and if the patient will still be a candidate for chemo once infection resolved. Palliative care has been consulted. Code status discussed and noted. Qualifiers: Laterality: left Lung location: unspecified part of lung Qualified Code(s ): C34.92 - Malignant neoplasm of unspecified part of left bronchus or lung (8) Cancer associated pain Status: Chronic Palliative care consulted. - Subjective Interval history: Patient seen and examined. No acute events noted overnight. Patient lying in bed , a little drowsy this morning. He states he feels about the same. Denies fevers or chills. Afebrile overnight per documentation. Denies chest pain but complains of pain when I place my stethoscope on his chest for the exam States his shortness of breath is better and he is not coughing as much. Continues to complain of diffuse abdominal pain, but states it is better today and he had a BM last night. He states his appetite is poor and he did not eat anything this morning. He denies nausea, vomiting, or diarrhea. He denies urinary complaints. He denies oral thrush or skin lesions. Infect Dis PN-Objective Data - Labs CBC & Chem 7: 12/14/16 04:47 12/14/16 04:47 Labs: Laboratory Results - last 24 hr 12/10/16 12/10/16 12/10/16 04:05 04:05 07:43 WBC 18.0 H RBC 3.22 L Hgb 9.2 L Hct 30.2 L MCV 93.8 MCH 28.6 MCHC 30.5 L RDW 14.0 Plt Count 234 MPV 10.6 Immature Gran % 1.7 Seg Neutrophils % 87.4 Lymphocytes % 6.1 Monocytes % 4.7 Eosinophils % 0.0 Basophils % 0.1 Neutrophils # 15.7 H Lymphocytes # 1.1 Monocytes # 0.9 Eosinophils # 0.0 Basophils # 0.0 ABG pH 7.50 H ABG pCO2 62 H ABG pO2 55 L ABG HCO3 48.3 H ABG Total CO2 50.2 H ABG O2 Saturation 91 L ABG Base Excess 22.0 H Blood Gas Modality NC Inspired O2 36 Sodium 142 Potassium 3.3 L Chloride 93 L Carbon Dioxide 40 H* BUN 26 Creatinine 1.82 H Est GFR ( Amer) 47 L Est GFR (Non-Af Amer) 38 L BUN/Creatinine Ratio 14 Glucose 158 H Calculated Osmolality 302 H Calcium 10.1 Magnesium 1.0 L Total Bilirubin 0.2 AST 19 ALT 7 Alkaline Phosphatase 102 Serum Total Protein 6.0 Albumin 1.9 L Globulin 4.1 H Albumin/Globulin Ratio 0.5 L Cultures: Cultures 12/02/16 16:04 Blood Culture - Final Peripheral Venipuncture No growth. 12/02/16 16:04 Blood Culture - Final Peripheral Venipuncture No growth. 12/04/16 14:26 Respiratory Culture - Final Left Upper Lobe Lung Escherichia coli 12/04/16 14:26 Acid Fast Stain - Final Left Upper Lobe Lung 12/03/16 08:00 Sputum Culture - Final Sputum Escherichia coli 12/04/16 14:26 Gram Stain - Final Left Upper Lobe Lung 11/25/16 17:06 Blood Culture - Final Peripheral Venipuncture No growth. 11/25/16 17:06 Blood Culture - Final Peripheral Venipuncture No growth. 11/23/16 08:30 Blood Culture - Final Peripheral Venipuncture No growth. 11/23/16 08:39 Blood Culture - Final Peripheral Venipuncture No growth. 11/25/16 19:05 Legionella Antigen - Final Urine,Clean Catch 11/20/16 15:00 Sputum Culture - Final Sputum Serology 12/04/16 11/25/16 Range/Units 14:26 11:30 Fluid Source left upper lobe Fluid Volume 20 mL Fluid Appearance Clear (Clear) Fluid RBC TNP Fld Tot Nucleated Cell TNP Fluid Seg Neutrophil % 92.0 % Fluid Lymphocytes % 5.0 % Fluid Other Cells % 3.0 % Chlamy pneumoniae PCR Not Detected (Not Detect) Adenovirus (PCR) Not Detected (Not Detect) B. pertussis DNA (PCR) Not Detected (Not Detect) Coronavirus OC43 (PCR) Not Detected (Not Detect) Coronavirus HKU1 (PCR) Not Detected (Not Detect) Coronavirus 229E (PCR) Not Detected (Not Detect) Coronavirus NL63 (PCR) Not Detected (Not Detect) Human Metapneumovir PCR Not Detected (Not Detect) Influenza A (H1) PCR Not Detected (Not Detect) Influ A (H1N1/09) PCR Not Detected (Not Detect) Influenza A (H3) PCR Not Detected (Not Detect) Influenza A Untype (PCR) Not Detected (Not Detect) Influenza Type B (PCR) Not Detected (Not Detect) M.pneumoniae DNA (PCR) Not Detected (Not Detect) Parainfluenza 1 (PCR) Not Detected (Not Detect) Parainfluenza 2 (PCR) Not Detected (Not Detect) Parainfluenza 3 (PCR) Not Detected (Not Detect) Parainfluenza 4 (PCR) Not Detected (Not Detect) RSV (PCR) Not Detected (Not Detect) Entero/Rhino (PCR) Not Detected (Not Detect) Exam - Constitutional Vitals: Temp Pulse Resp BP Pulse Ox 97.6 F 110 28 105/69 90 12/10/16 11:12 12/10/16 11:12 12/10/16 11:12 12/10/16 11:12 12/10/16 11:12 General appearance: cooperative, no acute distress, thin - Head Head exam: Present: atraumatic, normal inspection, normocephalic - Eye Eye exam: Present: EOMI, normal appearance, PERRL Pupils: Present: normal accommodation - ENT ENT exam: Present: mucous membranes dry - Neck Neck exam: Present: normal inspection - Respiratory Respiratory exam: Present: decreased breath sounds (throughout). Absent: rales , respiratory distress, rhonchi - Cardiovascular Cardiovascular exam: Present: +S1, +S2, tachycardia. Absent: irregular rhythm - GI/Abdominal GI/Abdominal exam: Present: normal bowel sounds, soft, tenderness (generalized ) . Absent: distended - Extremities Exam Extremities exam: Absent: joint swelling, pedal edema, tenderness - Neurological Exam Neurological exam: Present: altered (Drowsy, but awakens easily.), oriented X3, no focal deficits - Psychiatric Psychiatric exam: Present: normal affect, normal mood - Skin Skin exam: Present: dry, intact, normal color, warm - Additional findings Additional findings: A-port noted to the right upper chest with transparent dressing C/D/I. No erythema, warmth, or tenderness noted. Consult Discharge Plan - Plan Instructions: Sepsis (DC), Pneumonia (DC) Additional Instructions: Schedule follow up appointment with PCP/ Dr. Cardenas in 1 week. Schedule follow up appointment with Pulmonology/ Dr. Morrison in 1 week. Schedule follow up appointment with Radiation Oncology/ Dr. Woodall in 1 week. Schedule follow up appointment with Oncology/ Dr. Kendrick in 1 week. Continue breathing treatments as needed. Take pain medication as needed for pain. Referrals: Domingo Morrison DO [Non-Partnered Physician] - 12/21/16 2:15 pm (You will be seeing Dr. Lobato) Alexander Cox DO [Non-Partnered Physician] - (TRIED TO CALL AND MAKE AN APPOINTMENT THE OFFICE IS CLOSED ON FRIDAYS. ) Raheel Cardenas DO [Resident] - 12/22/16 2:00 pm (1 week) Gerardo Kendrick MD [Partnered Physician] - 12/16/16 9:10 am (Patient is getting treatment at cancer center everyday...) Prescriptions: Ipratropium/Albuterol Neb [Duoneb] 3 ml IH [id number] #30 inh OxyCODONE ER (12 HR) [OxyCONTIN] 10 mg PO Q12HR PRN #30 tab PRN Reason: Moderate Pain Nebulizer [Aeroeclipse] 1 each MC Q3H PRN #1 each PRN Reason: Dyspnea Nebulizer Accessories [A.i.r.s. Nebulizer] 1 each MC Q3H PRN #1 kit PRN Reason: Bronchospasm Nicotine Patch [Nicoderm] 21 mg TD DAILY #30 patch.td24 OxyCODONE Immed Rel [Roxicodone 5 MG] 10 mg PO Q2H PRN #30 tab PRN Reason: Severe Pain - Attending Attestation I examined this patient and my medical decision-making was reviewed with the Resident Physician. I agree with the documented findings, disposition and treatment plan as described except to the extent set forth below.
--- NOTE | 2016-12-10 13:50 | Rad Onc Consult Note ---
Radiation Oncology HPI - Oncology history Comments: 56-year-old male presents with AJCC clinical stage IV lung cancer status post chemotherapy and SRS to brain metastases. He presents with postobstructive pneumonia and a progressive left lung mass. Date: 12/10/16 Primary Care Provider: Shabana Llamas DO History of present illness: Mr. Bliss presents with postobstructive pneumonia and is status post bronchcospy that showed endobronchial obstruction proximal to the pneumonia. Radiation oncology was consulted to noninvasively debulk the left-sided lung mass such that the pneumonia can be cleared. Mr. Bliss's last chemotherapy was 10/13/16. He also initially had brain metastases that were treated with CyberKnife. He denies prior history of radiotherapy (with exception of CyberKnife). History - Past Medical History Past Medical History Notes: arthritis, cancer, CHF, COPD, CVA, DVT-left leg, hyperlipidemia, hypertension, degenerative disc disease, history of CyberKnife to the brain metastases - Family History Family History: no significant family history, other family history - Social History Smoking Status: Current every day smoker Smokeless Tobacco Status: No Alcohol Use: none Drug use: marijuana - Surgical History Surgical History Notes: left shoulder surgery, herniorraphy Oncology - Medications Buspirone HCl [Buspar] 7.5 mg PO BID 04/21/16 [History] Gabapentin 600 mg PO TID 04/21/16 [History] SUMAtriptan Succinate [Imitrex] 100 mg PO DAILY PRN 04/21/16 [History] lamoTRIgine [Lamictal] 75 mg PO BID 04/21/16 [History] Albuterol Sulfate [Albuterol Inhaler] 2 puff IH Q6H PRN 09/08/16 [History] Zolpidem [Ambien] 5 mg PO HS 09/14/16 [History] Folic Acid 1 mg PO DAILY #30 tablet 09/28/16 [Rx] Loratadine [Claritin] 10 mg PO AD #60 tablet 09/28/16 [Rx] Omeprazole [PriLOSEC] 20 mg PO DAILY #30 capsule 09/28/16 [Rx] Ondansetron [Zofran] 8 mg PO Q8HR PRN #90 tablet 09/28/16 [Rx] Prochlorperazine Maleate [Compazine] 10 mg PO Q6HR PRN #60 tablet 09/28/16 [Rx] Oxymetazoline [Afrin] 15 spray NS AD PRN #1 bottle 10/06/16 [Rx] Guaifenesin [Guaifenesin ER] 1,200 mg PO BID #60 tab.er.12h 10/22/16 [Rx] OxyCODONE/APAP 10/325 [Percocet 10/325 MG] 1 each PO Q4HR PRN 10/22/16 [History] Aspirin [Aspirin] 81 mg PO DAILY 11/20/16 [History] OLANZapine [Zyprexa] 2.5 mg PO DAILY 11/20/16 [History] Umeclidinium [place] [Incruse Ellipta] 1 puff IH DAILY 11/20/16 [History] Allergies doxycycline Allergy (Verified 10/22/16 16:08) Rash hydrocodone [From Vicodin] Allergy (Verified 10/22/16 16:08) Rash lidocaine Allergy (Verified 10/22/16 16:08) Rash propoxyphene [From Darvocet-N] Allergy (Verified 10/22/16 16:08) Rash morphine patches Allergy (Intermediate, Uncoded 10/22/16 16:08) Rash Review of Systems - Exam Provider Comments:: 12 point review of systems performed with patient as below: General YES FEVER, YES CHILLS, NO SWELLING, NO WEIGHT LOSS, NO Weight gain, NO LOSS OF APPETITE, NO FATIGUE Activity level: Low. Skin: YES SKIN LESIONS, NO PETECHIAE, NO RASH, NO ITCHING HEENT: NO VISUAL PROBLEMS, NO HEARING PROBLEMS, NO HEADACHE, NO ORAL LESIONS, NO DYSPHAGIA, NO SORE THROAT, NO EAR ACHE/DRAINAGE Cardio/Pulmonary: NO PALPITATIONS, NO CHEST PAIN, YES COUGH/COUGH UP BLOOD,YES SHORTNESS OF BREATH GI: NO ABDOMINAL PAIN, NO NAUSEA, NO VOMITING, NO HEMATEMESIS, NO HISTORY OF JAUNDICE, NO HEART BURN, NO DIARRHEA, NO CONSTIPATION : NO DYSURIA, NO HEMATURIA Genital: NO HOT FLASH Neuro/Psychiatric: NO HEADACHE, NO SEIZURES, NO SYNCOPE, NO STROKE, NO DIZZINESS, NO PARESTHESIAS, NO NUMBNESS OR TINGLING Endocrine/Diabetes: NO DIABETES, NO THYROID Immunologic/Allergic: NO INFECTIONS, NO ALLERGIES HEME: YES ENLARGED LYMPH NODES, NO BLEEDING, NO CLOTTING DIFFICULTIES, NO EASY BRUISING OR BLEEDING ONCOLOGY MUSCULOSKELETAL NO JOINT PAIN, NO SWELLING, NO BONY PAIN, NO DIFFICULTY WALKING, NO MUSCLE PAIN OR WEAKNESS Physical Exam - Vitals Vital Signs: Last Vital Signs Temp 97.6 F 12/10/16 11:12 Pulse 110 12/10/16 11:12 Resp 28 12/10/16 11:12 BP 105/69 12/10/16 11:12 Pulse Ox 90 12/10/16 11:12 Weight: 64.2 kg ECO - Consciousness/Orientation Level Of Consciousness: Awake, Alert, Appropriate, Follows Commands Patient Orientation: Person, Name, Date of Physical Exam: GENERAL: Alert and oriented, well appearing. Mental Status: Affect appropriate for circumstances HEENT: Sclerae anicteric. No mucositis or thrush. No other oral or pharyngeal lesions or erythema. Skin: No rashes or petechiae. No evidence of skin malignancy Lymph nodes: No cervical, supraclavicular, axillary, or inguinal adenopathy. Abdomen: Soft, nontender; no organomegaly or masses palpable. Extremities: No edema. No calf swelling or tenderness. No joint deformity. Neurologic: Alert, cranial nerves II-XII intact; normal gait; no focal weakness or sensory abnormalities. Oncology- Results - Labs Labs: Short CBC 12/10/16 Range/Units 04:05 WBC 18.0 H (4.3-11.1) K/mcL Hgb 9.2 L (12.9-16.9) g/dL Hct 30.2 L (37.5-50.1) % Plt Count 234 (140-400) K/mcL Neutrophils # 15.7 H (1.6-8.9) K/mcL BMP 12/10/16 04:05 Sodium 142 Potassium 3.3 L Chloride 93 L Carbon Dioxide 40 H* BUN 26 Creatinine 1.82 H Glucose 158 H Calcium 10.1 Liver Function 12/10/16 Range/Units 04:05 Total Bilirubin 0.2 (0.2-1.2) mg/dL AST 19 (5-34) Units/L ALT 7 (0-55) Units/L Alkaline Phosphatase 102 (38-126) Units/L Albumin 1.9 L (3.5-5.0) g/dL - Assessment Assessment: Mr. Bliss has postobstructive pneumonia. I will plan a course of 8 Gy in 1 fraction to his central chest disease in order to facilitate clearing of his pneumonia such that he can go home. Case was discussed with Dr. Kendrick. He is in agreement. Should his clinical status improved, immunotherapy is an option for him. If not, Hospice is also certainly an appropriate option. Consent was obtained today. Plan of care was discussed with Loren. Mr. Bliss's sister. She was also in agreement. We will plan for his radiation treatment tomorrow, barring any barriers. Sincerely, Wilfredo Woodall MD Radiation Oncology [facility] - Patient Problem List (1) Lung cancer Status: Acute Code(s): C34.90 - Malignant neoplasm of unspecified part of unspecified bronchus or lung Qualifiers: Laterality: left Lung location: unspecified part of lung Qualified Code(s ): C34.92 - Malignant neoplasm of unspecified part of left bronchus or lung SNOMED Code(s): 616903431 (2) Postobstructive pneumonia Status: Acute Code(s): J18.9 - Pneumonia, unspecified organism SNOMED Code(s ): 389552116
--- NOTE | 2016-12-10 14:08 | Rad Onc Dictation ---
Radiation Oncology Dictation Date of Service: 12/10/16 - Oncology History Comments: 56-year-old male presents with AJCC clinical stage IV lung cancer status post chemotherapy and SRS to brain metastases. He presents with postobstructive pneumonia and a progressive left lung mass. - Procedure Note Comments: CT Simulation and Treatment Planning Note Mr. Bliss was brought into the CT Simulation suite and placed in the supine position. A T-bar was utilized. 3D CT Simulation was required secondary to irregular shape of the target volume , close proximity to critical normal structures. Critical normal structures adjacent to the target volume include the following: heart, spinal cord, and lungs. [employer] TumorLOC software will be utilized to place an isocenter for treatment planning. This will be transferred to the lasers in the treatment room and will be used to miguel angel the patient for daily positioning. An AP/PA plan will be utilized to deliver 800 cGy in 1 fraction to the lung mass. This patient will require weekly monitoring in the form of on-treatment visits to assess for progression through treatment, ability to tolerate further treatment, and to assess for treatment-related side effects in order to manage them. Consent has been obtained, and the patient is amenable to treatment. The risks and benefits of radiotherapy have been explained, and the patient is agreeable to proceed. Thank you again for allowing us to participate in the care of this pleasant patient. Sincerely, Wilfredo Woodall MD Radiation Oncologist [facility] [address] [place] [address]
[2016-12-10] MEDS: Magnesium Oxide 400 MG TABLET PO SCH ×2 (15:57→21:24)
--- NOTE | 2016-12-10 16:40 | Procedure Note ---
<Miladis Acevedo - Last Filed: 12/10/16 17:33> Date of procedure: 12/10/16 Pre-op diagnosis: Pleural effusion Post-op diagnosis: same Procedure: Left thoracentesis A time-out was completed verifying correct patient, procedure, site, positioning , and special equipment if applicable. The patients left side was prepped and draped in a sterile manner after the appropriate infiltration level was confirmed by ultrasound. 1% lidocaine was used anesthetize the surrounding skin. A finder needle was then used to locate fluid and clear yellow fluid was obtained. A 10-blade scalpel used to make the incision. The thoracentesis catheter was then threaded without difficulty. The patient had 1400mL of sanguinous fluid removed. Attending- /Resident- Dr. Hart was present for the entire procedure. A post-procedure chest x-ray was ordered and the fluid will be sent for several studies. Estimated Blood Loss: 1cc The patient tolerated the procedure well and there were no complications. Impressions Chest X-Ray 12/10/16 16:44 IMPRESSION: Relatively stable 90% opacification left hemithorax over 24 hours. No evident pneumothorax after thoracentesis. D/ / Jamie Rapp MD / Jamie Rapp MD Interpreting Provider: Jamie Rapp MD Anesthesia: local Surgeon: Miladis Acevedo Construction Cost Estimator: Narciso Hart Estimated blood loss (cc): 1.0 IV fluids (cc): 0 Urine output (cc): 0 Pathology: other Condition: stable Disposition: no change <Micaela Bradford - Last Filed: 12/10/16 17:57> Procedure: I have personally supervised Dr. Acevedo performing this procedure without immediate complications and patient tolerated procedure very well.
[2016-12-10 17:49] LABS: Amylase,Pleural Fluid 18 Units/L (No Ref Range); Glucose,Pleural Fluid 222 mg/dL (No Ref Range); LDH,Pleural Fluid 559 Units/L (No Ref Range); Triglycerides, Pleural Fluid 53 mg/dL (No Ref Range)
[2016-12-10 17:56] LABS: Total Protein,Pleural Fluid 3.3 g/dL (No Ref Range)
[2016-12-10 18:16] LABS: RBC,Pleural Fluid 0.071 M/mcL
[2016-12-10 18:19] LABS: Appearance of Pleural Fl Hazy (Clear)
[2016-12-10] MEDS: *HR* OxyCODONE Immed Rel 5 MG TABLET PO PRN ×2 (19:02→23:39)
[2016-12-11] MEDS: Dexamethasone 4 MG/ML VIAL IVP SCH ×4 (01:28→18:24)
[2016-12-11 04:20] LABS: ABG Base Excess 22.2 mEq/L (-2.0 to 3.0); ABG HCO3 48.2 mEQ/L (21-27); ABG Oxygen Saturation 93 % (95-98); ABG PCO2 59 mmHg (35-45); ABG PH 7.52 pH Units (7.32-7.45); ABG PO2 59 mmHg (85-104); Blood Gas FiO2 32 %
[2016-12-11] MEDS: *HR* OxyCODONE Immed Rel 5 MG TABLET PO PRN ×4 (04:26→20:12)
[2016-12-11] MEDS: Ipratropium/Albuterol Neb 3 ML IH SCH ×6 (04:42→23:04)
[2016-12-11 06:29] LABS: Hemoglobin 9.2 g/dL (12.9-16.9); Mean Corpuscular HGB Conc 31.7 g/dL (31.6-35.5); Mean Corpuscular Hemoglobin 28.6 pg (28.0-33.3); Mean Corpuscular Volume 90.1 fL (83.0-100.0); Mean Platelet Volume 10.5 fL (9.4-12.4); Platelet Count 244 K/mcL (140-400); Red Blood Count 3.22 M/mcL (4.19-5.50); Red Cell Distribution Width 13.8 % (11.5-14.5)
[2016-12-11 06:40] LABS: Albumin/Globulin Ratio 0.5 (1.1-2.2); Bilirubin,Total 0.4 mg/dL (0.2-1.2); Calcium 9.1 mg/dL (8.6-10.8); Potassium 3.3 mEq/L (3.5-4.5)
[2016-12-11] MEDS ORDERED: Magnesium Sulfate 2 GM in D5% in Water 100 ML IVPB ONE (07:38)
[2016-12-11 08:02] LABS: Influenza A PCR Body Fluid NOT DETECTED; Influenza B PCR Body Fluid NOT DETECTED; RSV PCR Body Fluid NOT DETECTED
[2016-12-11] MEDS: lamoTRIgine 25 MG TABLET PO SCH ×2 (08:15→20:57)
[2016-12-11] MEDS: Magnesium Oxide 400 MG TABLET PO SCH ×2 (08:15→20:56)
[2016-12-11] MEDS: GuaiFENesin/Dextromethorphan TABLET PO SCH ×2 (08:15→20:57)
[2016-12-11] MEDS: Folic Acid 1 MG TABLET PO SCH (08:16)
[2016-12-11] MEDS: amLODIPine 5 MG TABLET PO SCH ×2 (08:16→20:56)
[2016-12-11] MEDS: Metoprolol XL (24 HR) Succ 50 MG TAB.ER.24H PO SCH (08:16)
[2016-12-11] MEDS: Sennosides/Docusate Sodium TABLET PO SCH ×2 (08:16→20:57)
[2016-12-11] MEDS: Aspirin 81 MG TAB.CHEW PO SCH (08:16)
--- NOTE | 2016-12-11 08:17 | Internal Med Progress Note ---
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 Pleural fluid analysis revealed an exudative pleural effusion which could be contributing to the leukocytosis with 2191 total nucleated cells. Culture pending Rad oncology to perform radiotherapy today and continue weekly monitoring. ABG shows slightly worsening Metabolic alkalosis with superimposed respiratory acidosis. Will encourage BiPAP as tolerated. Patient currently on 3 L on oxygen via nasal cannula. Baseline is 2 L of oxygen at home (2) Primary lung cancer with metastasis from lung to other site Current Visit: Yes Status: Chronic Assessment and plan: AJCC clinical stage IV lung cancer status post chemotherapy and SRS to brain metastases, possible mets in liver as well as adrenals Patient reports that he has received one cycle of chemotherapy so far. Oncology to treat with immunotherapy either alone or in combination chemotherapy if his overall condition permits and does not anticipate any issues with immunotherapy based on kidney function. Radiation oncology to perform radiation treatment. PT and OT has seen patient and recommends therapy. Patient DNRCC - A. Patient goal is returm home HH services. SS involved in case and working on home set-up. Will cont to follow. Qualifiers: Laterality: unspecified laterality Qualified Code(s): C34.90 - Malignant neoplasm of unspecified part of unspecified bronchus or lung (3) Postobstructive pneumonia Current Visit: Yes Status: Acute Assessment and plan: See above. Continue Rocephin (Day 6) and supplement oxygen (4) Pleural effusion on left Current Visit: Yes Status: Acute Assessment and plan: Status post left-sided thoracentesis 12/10/16. revealed an exudative pleural effusion which could be contributing to the leukocytosis (5) Acute kidney injury Current Visit: Yes Status: Acute Assessment and plan: Suspect due to multiple factors including sepsis, vancomycin. Renal function improving gradually and nephrology has recommended discharge Oncology does not anticipate any issues with immunotherapy based on kidney function. (6) Metabolic alkalosis with respiratory acidosis Current Visit: Yes Status: Acute Assessment and plan: Rated to acute kidney injury. Discontinued bicarbonate. Continue BiPAP when necessary. Continue to monitor (7) Decreased appetite Current Visit: Yes Status: Acute Assessment and plan: Improved. May consider appetite stimulation if necessary, will discuss with palliative care. (8) Sepsis Current Visit: Yes Status: Acute Assessment and plan: Related to gram-negative sepsis secondary to gram-negative pneumonia/ E coli. Infectious disease following. Continue current Rocephin treatment Qualifiers: Sepsis type: sepsis due to unspecified organism Qualified Code(s): A41.9 - Sepsis, unspecified organism (9) Therapeutic opioid induced constipation Current Visit: Yes Status: Acute Assessment and plan: Patient had bowel movement 2 days ago. Continue laxatives when necessary. (10) Cancer associated pain Current Visit: Yes Status: Chronic Assessment and plan: Patient is on oxycodone and probably would require heavy pain medication as outpatient to he has been referred to palliative care. Discontinue morphine due to renal insufficiency (11) CVA (cerebral vascular accident) Current Visit: No Status: Chronic Assessment and plan: Continue to monitor. Qualifiers: CVA mechanism: unspecified Qualified Code(s): I63.9 - Cerebral infarction, unspecified (12) DVT prophylaxis Current Visit: No Status: Acute Assessment and plan: Heparin and SCDs Patient seen and examined, case discussed with him and agreed upon with Dr. Stevens - Subjective Interval history: Patient resting in bed now on 3L supplemental O2, denies any new complaints, and reports appetite is improved. Pt denies worsening SOB, fevers, chills, vomiting, diarrhea, or dysuria. Patient agrees to wear BiPAP this a.m. - Constitutional Vitals: Temp Pulse Resp BP Pulse Ox 97.9 F 111 20 120/78 94 12/11/16 06:35 12/11/16 06:35 12/11/16 07:55 12/11/16 06:35 12/11/16 07:55 General appearance: Present: cachectic, cooperative, A&O X 3, pleasant, underweight, answers questions appropriately Exam: 3 L supplemental oxygen via nasal cannula - Head Head exam: Present: atraumatic, normocephalic - Eye Eye exam: Present: PERRL, conjuntiva pink, sclera anicteric Pupils: Present: PERRL - ENT ENT exam: Present: mucous membranes moist, normal oropharynx - Neck Neck exam general surgery: Present: supple, trachea midline. Absent: lymphadenopathy - Respiratory Respiratory exam: Present: decreased breath sounds. Absent: accessory muscle use, rales, rhonchi, wheezes Additional comments: Left greater than right, improved air movement since yesterday - Cardiovascular Cardiovascular exam: Present: +S1, +S2, tachycardia. Absent: diastolic murmur, gallop, rubs, systolic murmur - GI/Abdominal GI/Abdominal exam: Present: normal bowel sounds, soft, no peritoneal signs. Absent: distended, firm, guarding, tenderness - Extremities Exam Extremities exam: Present: warm, radial pulses palpable and symetrical. Absent : calf tenderness, cyanotic, pedal edema - Neurological Exam Neurological exam: Present: CN II-XII intact, oriented X3, no focal deficits. Absent: pronater drift, facial droop, speech deficit - Psychiatric Psychiatric exam: Present: normal affect, normal mood Additional comments: Cheerful - Skin Skin exam: Present: dry, intact Additional comments: No bleeding or bruising from thoracentesis site Internal Medicine: Result - Labs CBC & Chem 7: 12/11/16 05:55 12/11/16 05:55 Labs: Short CBC 12/11/16 Range/Units 05:55 WBC 22.0 H (4.3-11.1) K/mcL Hgb 9.2 L (12.9-16.9) g/dL Hct 29.0 L (37.5-50.1) % Plt Count 244 (140-400) K/mcL BMP 12/10/16 12/11/16 04:05 05:55 Sodium 142 137 Potassium 3.3 L 3.3 L Chloride 93 L 89 L Carbon Dioxide 40 H* 40 H* BUN 26 27 H Creatinine 1.82 H 1.49 H Glucose 158 H 210 H Calcium 10.1 9.1 Liver Function 12/10/16 12/11/16 Range/Units 04:05 05:55 Total Bilirubin 0.2 0.4 (0.2-1.2) mg/dL AST 19 16 (5-34) Units/L ALT 7 6 (0-55) Units/L Alkaline Phosphatase 102 96 (38-126) Units/L Albumin 1.9 L 2.0 L (3.5-5.0) g/dL - ABG Interpretation Interpretation: ABG interpreted by sc ABG results: ABG ABG pH 7.52 pH Units (7.32-7.45) H 12/11/16 04:07 ABG pCO2 59 mmHg (35-45) H 12/11/16 04:07 ABG pO2 59 mmHg (85-104) L 12/11/16 04:07 ABG O2 Saturation 93 % (95-98) L 12/11/16 04:07 PT/INR, D-dimer PT 14.1 Seconds (9.4-12.1) H 11/20/16 00:10 Interpretation: respiratory acidosis, metabolic alkalosis - Impressions Impressions Chest X-Ray 12/10/16 16:44 IMPRESSION: Relatively stable 90% opacification left hemithorax over 24 hours. No evident pneumothorax after thoracentesis. D/ / Jamie Rapp MD / Jamie Rapp MD Interpreting Provider: Jamie Rapp MD Consult Discharge Plan - Plan Referrals: Alexander Cox DO [Non-Partnered Physician] - (TRIED TO CALL AND MAKE AN APPOINTMENT THE OFFICE IS CLOSED ON FRIDAYS. ) Shabana Llamas DO [Primary Care Provider] - 12/11/16 10:20 am (Patient will follow up with cancer physician) Gerardo Kendrick MD [Partnered Physician] - 12/08/16 9:30 am (Patient is getting treatment at cancer center everyday...) <Celestine Stevens - Last Filed: 12/11/16 14:59> Date of Encounter: 12/11/16 - Assessment and plan (1) Acute on chronic respiratory failure with hypoxia and hypercapnia Current Visit: Yes Status: Acute (2) Pneumonia due to gram-negative bacteria Current Visit: Yes Status: Acute Assessment and plan: Pt with E coli in his sputum and postobstructive pneumonia. (3) Acute kidney injury Current Visit: Yes Status: Acute (4) Pleural effusion on left Current Visit: Yes Status: Acute (5) Essential hypertension Current Visit: No Status: Chronic Assessment and plan: Monitoring. (6) GERD (gastroesophageal reflux disease) Current Visit: No Status: Chronic Assessment and plan: Asymptomatic currently. Qualifiers: Esophagitis presence: esophagitis presence not specified Qualified Code(s) : K21.9 - Gastro-esophageal reflux disease without esophagitis (7) Abdominal pain Current Visit: Yes Status: Acute Assessment and plan: Pain on L side occurs with minimal pressure. ? neuropathic type pain. Treat with Neurontin or other med. Qualifiers: Abdominal location: left upper quadrant Qualified Code(s): R10.12 - Left upper quadrant pain (8) Decreased appetite Current Visit: Yes Status: Acute (9) Sepsis Current Visit: Yes Status: Resolved Qualifiers: Sepsis type: sepsis due to unspecified organism Qualified Code(s): A41.9 - Sepsis, unspecified organism (10) Anxiety Current Visit: Yes Status: Chronic Assessment and plan: Supportive care. (11) Cancer associated pain Current Visit: Yes Status: Chronic (12) Therapeutic opioid induced constipation Current Visit: Yes Status: Acute (13) Tobacco abuse Current Visit: Yes Status: Chronic Assessment and plan: Cessation counselling. - Constitutional Vitals: Temp Pulse Resp BP Pulse Ox 97.9 F 108 18 110/70 97 12/11/16 12:04 12/11/16 12:04 12/11/16 12:04 12/11/16 12:04 12/11/16 12:04 Internal Medicine: Result - Labs CBC & Chem 7: 12/11/16 05:55 12/11/16 05:55 Labs: Short CBC 12/11/16 Range/Units 05:55 WBC 22.0 H (4.3-11.1) K/mcL Hgb 9.2 L (12.9-16.9) g/dL Hct 29.0 L (37.5-50.1) % Plt Count 244 (140-400) K/mcL BMP 12/11/16 05:55 Sodium 137 Potassium 3.3 L Chloride 89 L Carbon Dioxide 40 H* BUN 27 H Creatinine 1.49 H Glucose 210 H Calcium 9.1 Liver Function 12/11/16 Range/Units 05:55 Total Bilirubin 0.4 (0.2-1.2) mg/dL AST 16 (5-34) Units/L ALT 6 (0-55) Units/L Alkaline Phosphatase 96 (38-126) Units/L Albumin 2.0 L (3.5-5.0) g/dL - ABG Interpretation ABG results: ABG ABG pH 7.52 pH Units (7.32-7.45) H 12/11/16 04:07 ABG pCO2 59 mmHg (35-45) H 12/11/16 04:07 ABG pO2 59 mmHg (85-104) L 12/11/16 04:07 ABG O2 Saturation 93 % (95-98) L 12/11/16 04:07 PT/INR, D-dimer PT 14.1 Seconds (9.4-12.1) H 11/20/16 00:10 - Impressions Impressions Chest X-Ray 12/10/16 16:44 IMPRESSION: Relatively stable 90% opacification left hemithorax over 24 hours. No evident pneumothorax after thoracentesis. D/ / Jamie Rapp MD / Jamie Rapp MD Interpreting Provider: Jamie Rapp MD - Attending Attestation I examined this patient and my medical decision-making was reviewed with the Resident Physician on 12/11/16. I agree with the documented findings, disposition and treatment plan as described except to the extent set forth below. Mr. Bliss is currently admitted for acute on chronic hypoxic/hypercarbic resp failure due to post obstructive pneumonia. He remains moderate to high risk due to potential for worsening respiratory and infectious status. He is to begin radiation today. Mr. Bliss is feeling somewhat better today. Still having a lot of pain in L chest/abdomen area - even to minimal touch. No nausea. To go for radiation today. No fever or chills currently. No diarrhea - in fact, has been constipated. He feels his appetite has improved today. Exam Alert. Comfortable lying flat in bed. Mucus membranes are dry Heart distant but regular Lungs diminished on L. Scant end exp wheeze on R Abd soft. Tender to minimal palpation on L chest wall and L abdomen No edema currently. Current labs reviewed. HCO3 is 40. I/P 1. Acute on chronic resp failure with hypoxia and hypercarbia 2. Post obs PNA - to start radiation today 3. Stage 4 lung cancer 4. ARMAAN - monitoring. Avoid nephrotoxins. 5. Constipation due to opoids 6. Anorexia - little better today 7. Sepsis - appears resolved. Further diagnoses and plan as above.
[2016-12-11] MEDS: *HR* Heparin 5,000 UNIT/ML VIAL SQ SCH ×3 (08:18→23:59)
[2016-12-11] MEDS: Nicotine 21 MG PATCH.TD24 TD SCH (08:19)
--- NOTE | 2016-12-11 09:40 | Palliative Progress Note ---
Date of Encounter: 12/11/16 Time of Encounter: 08:30 - Assessment and plan (1) Cancer associated pain Current Visit: Yes Status: Chronic Assessment and plan: Mr. Bliss has used 4 doses of oxycodone in the past 24 hours. Interval every 2 hours as needed and continue to monitor. He is agreeable starting oxyCONTIN again. Will initiate oxyCONTIN 10mg BID. Discussed with clinical pharmacist. (2) Sepsis Current Visit: Yes Status: Acute Qualifiers: Sepsis type: sepsis due to unspecified organism Qualified Code(s): A41.9 - Sepsis, unspecified organism (3) Acute kidney injury Current Visit: Yes Status: Acute Assessment and plan: Resolving. (4) Counseling regarding advanced directives and goals of care Current Visit: Yes Status: Acute Assessment and plan: Mr. Bliss is currently planning to return home with home health services through [facility]. business services sales representative following for discharge needs. Will need oncology follow up at some point. Mr. Bliss is interested in continuing antineoplastic treatments. Plan to start palliative radiation therapy for tumor debulking today at the Cancer center. (5) Therapeutic opioid induced constipation Current Visit: Yes Status: Acute Assessment and plan: Last documented BM was on 12/09/16 x2. Mr. Bliss continues to take the Senna 2 tablets BID, and MiraLax. Continue with daily laxatives. (6) Acute on chronic respiratory failure with hypoxia and hypercapnia Current Visit: Yes Status: Acute (7) Decreased appetite Current Visit: Yes Status: Acute Assessment and plan: Consider adding megace. Will discuss with medicine. - Time Spent With Patient Total time spent is greater than 50% in coordination of care (as documented) at patient's floor/unit and/or counseling patient: - Subjective Interval history: Mr. Bliss is lying in bed, preparing to eat morning meal. Alert and oriented and interactive. Denies pain or difficulty breathing. Nurse at bedside. - Constitutional Vitals: Abnormal lab results WBC 22.0 K/mcL (4.3-11.1) H 12/11/16 05:55 RBC 3.22 M/mcL (4.19-5.50) L 12/11/16 05:55 Hgb 9.2 g/dL (12.9-16.9) L 12/11/16 05:55 Hct 29.0 % (37.5-50.1) L 12/11/16 05:55 Neutrophils # 15.7 K/mcL (1.6-8.9) H 12/10/16 04:05 Nucleated RBCs/100 WBC 0.1 /100 WBC (0) H 12/06/16 06:04 PT 14.1 Seconds (9.4-12.1) H 11/20/16 00:10 APTT 24.9 Seconds (26.0-36.0) L 11/20/16 00:10 ABG pH 7.52 pH Units (7.32-7.45) H 12/11/16 04:07 ABG pCO2 59 mmHg (35-45) H 12/11/16 04:07 ABG pO2 59 mmHg (85-104) L 12/11/16 04:07 ABG HCO3 48.2 mEQ/L (21-27) H 12/11/16 04:07 ABG Total CO2 50.0 mEq/L (20-26) H 12/11/16 04:07 ABG O2 Saturation 93 % (95-98) L 12/11/16 04:07 ABG Base Excess 22.2 mEq/L (-2.0 to 3.0) H 12/11/16 04:07 Potassium 3.3 mEq/L (3.5-4.5) L 12/11/16 05:55 Chloride 89 mEq/L (98-109) L 12/11/16 05:55 Carbon Dioxide 40 mEq/L (19-29) H* 12/11/16 05:55 BUN 27 mg/dL (8-26) H 12/11/16 05:55 Creatinine 1.49 mg/dL (0.72-1.25) H 12/11/16 05:55 Est GFR ( Amer) 59 (> 60) L 12/11/16 05:55 Est GFR (Non-Af Amer) 48 (> 60) L 12/11/16 05:55 Glucose 210 mg/dL (70-99) H 12/11/16 05:55 POC Glucose 97 (58-89) H 12/04/16 11:47 Magnesium 1.0 mg/dL (1.6-2.6) L 12/11/16 05:55 Iron 14 mcg/dL (65-175) L 11/25/16 09:45 % Saturation 10 % (20-55) L 11/25/16 09:45 Transferrin 103 mg/dL (174-364) L 11/25/16 09:45 Troponin I 0.05 ng/mL (0-0.03) H* 11/20/16 16:26 Albumin 2.0 g/dL (3.5-5.0) L 12/11/16 05:55 Globulin 4.0 g/dL (2.4-3.5) H 12/11/16 05:55 Albumin/Globulin Ratio 0.5 (1.1-2.2) L 12/11/16 05:55 Amylase 18 Units/L (25-125) L 11/25/16 16:04 Vitamin B12 865 pg/mL (213-816) H 11/25/16 09:45 Procalcitonin 0.87 ng/mL (<=0.10) H 11/25/16 16:04 Pleural Appearance Hazy (Clear) A 12/10/16 16:37 Pleural RBC 0.071 M/mcL (0.000-0.002) H 12/10/16 16:37 Pleural Tot Nuc Cell 2191 TNC/mcL (0-1000) H 12/10/16 16:37 Vancomycin Trough 71.6 mcg/mL (10-20) H* 11/24/16 03:25 Exam: 56 year old male, alert and orient and interactive in conversation. - Eye Eye exam: Present: EOMI - Respiratory Respiratory exam: Absent: accessory muscle use, tachypnea - Cardiovascular Cardiovascular exam: Present: RRR - GI/Abdominal GI/Abdominal exam: Present: normal bowel sounds, soft, tenderness (mild with palpation) - Extremities Exam Extremities exam: Present: normal inspection - Neurological Exam Neurological exam: Present: alert, oriented X3, no focal deficits, strengths equal and symetr throughout - Psychiatric Psychiatric exam: Absent: agitated, anxious - Skin Skin exam: Present: dry, normal color, warm Palliative Quality Palliative Quality: Screen for Code Status: Yes, Screen for Goals of Care: Yes, Screen for Pain: Yes, If Pain Regimen Started, Initiate Bowel Regimen: Yes, Screen for Nausea/Vomitting: Yes Code Status: 11/20/16 03:31 Resuscitation Status: Active [RES] Routine Comment: Resuscitation Status: Full Code Resuscitation Status: Active [RES] Routine Comment: Resuscitation Status: DNR-Comfort Care-Arrest - Labs CBC & Chem 7: 12/11/16 05:55 12/11/16 05:55 Labs: Laboratory Results - last 24 hr 12/04/16 12/10/16 12/11/16 14:26 16:37 04:07 WBC RBC Hgb Hct MCV MCH MCHC RDW Plt Count MPV ABG pH 7.52 H ABG pCO2 59 H ABG pO2 59 L ABG HCO3 48.2 H ABG Total CO2 50.0 H ABG O2 Saturation 93 L ABG Base Excess 22.2 H Blood Gas Modality NC Inspired O2 32 Sodium Potassium Chloride Carbon Dioxide BUN Creatinine Est GFR ( Amer) Est GFR (Non-Af Amer) BUN/Creatinine Ratio Glucose Calculated Osmolality Calcium Magnesium Total Bilirubin AST ALT Alkaline Phosphatase Serum Total Protein Albumin Globulin Albumin/Globulin Ratio Fluid Source [place] Pleural Fluid Volume 1300.0 Pleural Appearance Hazy A Pleural pH 7.53 Pleural RBC 0.071 H Pleural Tot Nuc Cell 2191 H Pleural Neutrophils 72.0 Pleural Band Neuts Test Not Performed Pleural Eosinophils Test Not Performed Pleural Basophils Test Not Performed Pleural Lymphocytes % 6.0 Pleural Monocytes % Test Not Performed Pleural Other Cells % 22.0 Pleural Total Protein 3.3 Pleural Albumin 1.4 Pleural LDH 559 Pleural Glucose 222 Pleural Amylase 18 Pleural Cholesterol 72 Pleural Triglycerides 53 Herpes Simplex Source [place] Herpes Simplex DNA PCR NOT DETECTED Influenza Type A (PCR) NOT DETECTED Influenza Type B (PCR) NOT DETECTED RSV (PCR) NOT DETECTED 12/11/16 12/11/16 12/11/16 05:55 05:55 05:55 WBC 22.0 H RBC 3.22 L Hgb 9.2 L Hct 29.0 L MCV 90.1 MCH 28.6 MCHC 31.7 RDW 13.8 Plt Count 244 MPV 10.5 ABG pH ABG pCO2 ABG pO2 ABG HCO3 ABG Total CO2 ABG O2 Saturation ABG Base Excess Blood Gas Modality Inspired O2 Sodium 137 Potassium 3.3 L Chloride 89 L Carbon Dioxide 40 H* BUN 27 H Creatinine 1.49 H Est GFR ( Amer) 59 L Est GFR (Non-Af Amer) 48 L BUN/Creatinine Ratio 18 Glucose 210 H Calculated Osmolality 295 Calcium 9.1 Magnesium 1.0 L Total Bilirubin 0.4 AST 16 ALT 6 Alkaline Phosphatase 96 Serum Total Protein 6.0 Albumin 2.0 L Globulin 4.0 H Albumin/Globulin Ratio 0.5 L Fluid Source Pleural Fluid Volume Pleural Appearance Pleural pH Pleural RBC Pleural Tot Nuc Cell Pleural Neutrophils Pleural Band Neuts Pleural Eosinophils Pleural Basophils Pleural Lymphocytes % Pleural Monocytes % Pleural Other Cells % Pleural Total Protein Pleural Albumin Pleural LDH Pleural Glucose Pleural Amylase Pleural Cholesterol Pleural Triglycerides Herpes Simplex Source Herpes Simplex DNA PCR Influenza Type A (PCR) Influenza Type B (PCR) RSV (PCR) - Impressions Impressions Chest X-Ray 12/10/16 16:44 IMPRESSION: Relatively stable 90% opacification left hemithorax over 24 hours. No evident pneumothorax after thoracentesis. D/ / Jamie Rapp MD / Jamie Rapp MD Interpreting Provider: Jamie Rapp MD - ABG Interpretation ABG results: ABG ABG pH 7.52 pH Units (7.32-7.45) H 12/11/16 04:07 ABG pCO2 59 mmHg (35-45) H 12/11/16 04:07 ABG pO2 59 mmHg (85-104) L 12/11/16 04:07 ABG O2 Saturation 93 % (95-98) L 12/11/16 04:07 PT/INR, D-dimer PT 14.1 Seconds (9.4-12.1) H 11/20/16 00:10 Consult Discharge Plan - Plan Referrals: Alexander Cox DO [Non-Partnered Physician] - (TRIED TO CALL AND MAKE AN APPOINTMENT THE OFFICE IS CLOSED ON FRIDAYS. ) Shabana Llamas DO [Primary Care Provider] - 12/11/16 10:20 am Gerardo Kendrick MD [Partnered Physician] - 12/08/16 9:30 am
--- NOTE | 2016-12-11 11:16 | Infectious Disease Progress No ---
Date of Encounter: 12/11/16 Time of Encounter: 11:14 - Assessment and Plan (1) Sepsis Current Visit: Yes Status: Acute The patient had three SIRS criteria on admission (leukocytosis, tachycardia, and fever) on admission. He continues to have tachycardia, but was afebrile overnight. His WBC remains elevated. Sepsis originally secondary to post-obstructive PNA. High index of suspicion that persistent leukocytosis due to worsening PNA. Also had thoracentesis yesterday that revealed an exudative pleural effusion which could be contributing to the leukocytosis. Blood cultures drawn 11/20/16 x 2 sets, 11/23/16 x 2 sets, and 11/25/16 x 2 sets are negative. Repeat blood cultures x 3 sets drawn 12/02/16 are negative as well. Qualifiers: Sepsis type: sepsis due to unspecified organism Qualified Code(s): A41.9 - Sepsis, unspecified organism (2) Pneumonia Current Visit: Yes Status: Acute Causative organism E. coli. Likely post-obstructive due to large lung mass. CT of the chest 11/25/16 shows unchanged mass-like opacity in the left hilar region with superimposed left upper lobe consolidation. 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 Repeat CT scan of the chest 12/02/16 shows that the left hilar mass appears slightly larger than on the previous study. According to the radiologist, this causes obstruction of the left upper lobe bronchus and narrowing of the lingular bronchus. Airspace disease in the left upper lobe and lingula most likely represent postobstructive pneumonia. There is also increased interstitial markings in the left upper lobe and lingula and to a lesser degree of the left lower lobe likely representing lymphangitic tumor infiltration or hilar lymph node obstruction. Status post bronch 12/04/16. Endo report reviewed. BAL culture grew E. coli. Consider aspiration as well. Speech therapy note reviewed. No formal swallow evaluation completed. Repeat CXR shows interval worsening in the opacification of the left hemithorax with re-demonstration of the patient's known left upper lobe mass with suspected worsened volume loss of the left upper lobe. The patient's lung mass is likely contributing to the persistent/worsening PNA and without decreasing the tumor size, it is unlikely that the PNA will resolve. Pulmonology consulted and following. Patient not a candidate for bronchial stenting due to high risk for bleeding. Radiation Oncology consulted and plans to start radiation therapy today to help decrease the size of the lung mass. Continue Rocephin 1 gram IV daily. Duration of treatment depends on the clinical picture. Monitor renal function and dose-adjust antibiotics. Overall prognosis poor given the patient's large tumor size and persistent pneumonia. Qualifiers: Pneumonia type: due to unspecified organism Laterality: left Lung location: upper lobe of lung Qualified Code(s): J18.1 - Lobar pneumonia, unspecified organism (3) Acute kidney injury Current Visit: Yes Status: Acute Likely secondary to vanc toxicity. Serum creatinine continues to improve. Continue to trend. Avoid nephrotoxins as able and dose-adjust antibiotics. (4) Vancomycin poisoning Current Visit: Yes Status: Resolved Qualifiers: Encounter type: initial encounter Injury intent: accidental or unintentional Qualified Code(s): T36.8X1A - Poisoning by other systemic antibiotics, accidental (unintentional), initial encounter (5) Abdominal pain Current Visit: Yes Status: Acute Etiology not clear. KUB does not show obstruction or ileus. CT abdomen without acute infectious process x 2. Pain management per the primary and palliative care teams. Qualifiers: Abdominal location: epigastric Qualified Code(s): R10.13 - Epigastric pain (6) CVA (cerebral vascular accident) Current Visit: No Status: Chronic Qualifiers: CVA mechanism: unspecified Qualified Code(s): I63.9 - Cerebral infarction, unspecified (7) Lung cancer Current Visit: Yes Status: Acute Diagnosed 3 months ago. First chemotherapy session was about 09/24/16. Appears to be getting worse with metastases. Hem/Onc following. Referred to radiation oncology. Plan to start radiation today with possible immunotherapy/ chemotherapy once the patient's infection resolves. Palliative care has been consulted. Code status discussed and noted. Qualifiers: Laterality: left Lung location: unspecified part of lung Qualified Code(s ): C34.92 - Malignant neoplasm of unspecified part of left bronchus or lung (8) Cancer associated pain Current Visit: Yes Status: Chronic Palliative care consulted. (9) Pleural effusion on left Current Visit: Yes Status: Acute Status post therapeutic thoracentesis 12/10/16 by the pulmonology team. 1400ml serosanguinous drainage removed. Cell count reviewed --> appears exudative. Cultures pending. Continue antibiotics as above. - Subjective Interval history: Patient seen and examined. No acute events noted overnight. Patient standing at the bedside taking himself off BIPAP upon my entrance into the room. States the BIPAP was giving him a headache. States that overall he feels okay today. Denies fevers or chills. Afebrile overnight per documentation. Denies chest pain. States his shortness of breath is better and he is not coughing as much. Continues to complain of diffuse abdominal pain, but states it is better today and he thinks he is going to have a BM later today. He states his appetite is a little better and he ate some breakfast this morning. He denies nausea, vomiting , or diarrhea. He denies urinary complaints. He denies oral thrush or skin lesions. He was seen by radiation oncology yesterday and is scheduled for first radiation therapy later today. Infect Dis PN-Objective Data - Labs CBC & Chem 7: 12/11/16 05:55 12/11/16 05:55 Labs: Laboratory Results - last 24 hr 12/04/16 12/10/16 12/11/16 14:26 16:37 04:07 WBC RBC Hgb Hct MCV MCH MCHC RDW Plt Count MPV ABG pH 7.52 H ABG pCO2 59 H ABG pO2 59 L ABG HCO3 48.2 H ABG Total CO2 50.0 H ABG O2 Saturation 93 L ABG Base Excess 22.2 H Blood Gas Modality NC Inspired O2 32 Sodium Potassium Chloride Carbon Dioxide BUN Creatinine Est GFR ( Amer) Est GFR (Non-Af Amer) BUN/Creatinine Ratio Glucose Calculated Osmolality Calcium Magnesium Total Bilirubin AST ALT Alkaline Phosphatase Serum Total Protein Albumin Globulin Albumin/Globulin Ratio Fluid Source [place] Pleural Fluid Volume 1300.0 Pleural Appearance Hazy A Pleural pH 7.53 Pleural RBC 0.071 H Pleural Tot Nuc Cell 2191 H Pleural Neutrophils 72.0 Pleural Band Neuts Test Not Performed Pleural Eosinophils Test Not Performed Pleural Basophils Test Not Performed Pleural Lymphocytes % 6.0 Pleural Monocytes % Test Not Performed Pleural Other Cells % 22.0 Pleural Total Protein 3.3 Pleural Albumin 1.4 Pleural LDH 559 Pleural Glucose 222 Pleural Amylase 18 Pleural Cholesterol 72 Pleural Triglycerides 53 Herpes Simplex Source [place] Herpes Simplex DNA PCR NOT DETECTED Influenza Type A (PCR) NOT DETECTED Influenza Type B (PCR) NOT DETECTED RSV (PCR) NOT DETECTED 12/11/16 12/11/16 12/11/16 05:55 05:55 05:55 WBC 22.0 H RBC 3.22 L Hgb 9.2 L Hct 29.0 L MCV 90.1 MCH 28.6 MCHC 31.7 RDW 13.8 Plt Count 244 MPV 10.5 ABG pH ABG pCO2 ABG pO2 ABG HCO3 ABG Total CO2 ABG O2 Saturation ABG Base Excess Blood Gas Modality Inspired O2 Sodium 137 Potassium 3.3 L Chloride 89 L Carbon Dioxide 40 H* BUN 27 H Creatinine 1.49 H Est GFR ( Amer) 59 L Est GFR (Non-Af Amer) 48 L BUN/Creatinine Ratio 18 Glucose 210 H Calculated Osmolality 295 Calcium 9.1 Magnesium 1.0 L Total Bilirubin 0.4 AST 16 ALT 6 Alkaline Phosphatase 96 Serum Total Protein 6.0 Albumin 2.0 L Globulin 4.0 H Albumin/Globulin Ratio 0.5 L Fluid Source Pleural Fluid Volume Pleural Appearance Pleural pH Pleural RBC Pleural Tot Nuc Cell Pleural Neutrophils Pleural Band Neuts Pleural Eosinophils Pleural Basophils Pleural Lymphocytes % Pleural Monocytes % Pleural Other Cells % Pleural Total Protein Pleural Albumin Pleural LDH Pleural Glucose Pleural Amylase Pleural Cholesterol Pleural Triglycerides Herpes Simplex Source Herpes Simplex DNA PCR Influenza Type A (PCR) Influenza Type B (PCR) RSV (PCR) Cultures: Cultures 12/10/16 16:37 Body Fluid Culture - Preliminary Pleural Fluid 12/04/16 14:26 Legionella Culture - Final Left Upper Lobe Lung 12/02/16 16:04 Blood Culture - Final Peripheral Venipuncture No growth. 12/02/16 16:04 Blood Culture - Final Peripheral Venipuncture No growth. 12/04/16 14:26 Respiratory Culture - Final Left Upper Lobe Lung Escherichia coli 12/04/16 14:26 Acid Fast Stain - Final Left Upper Lobe Lung 12/03/16 08:00 Sputum Culture - Final Sputum Escherichia coli 12/04/16 14:26 Gram Stain - Final Left Upper Lobe Lung 11/25/16 17:06 Blood Culture - Final Peripheral Venipuncture No growth. 11/25/16 17:06 Blood Culture - Final Peripheral Venipuncture No growth. 11/23/16 08:30 Blood Culture - Final Peripheral Venipuncture No growth. 11/23/16 08:39 Blood Culture - Final Peripheral Venipuncture No growth. 11/25/16 19:05 Legionella Antigen - Final Urine,Clean Catch 11/20/16 15:00 Sputum Culture - Final Sputum Serology 12/10/16 12/04/16 12/04/16 Range/Units 16:37 14:26 14:26 Fluid Source [place]Y left upper lobe Fluid Volume 20 mL Fluid Appearance Clear (Clear) Fluid RBC TNP Fld Tot Nucleated Cell TNP Fluid Seg Neutrophil % 92.0 % Fluid Lymphocytes % 5.0 % Fluid Other Cells % 3.0 % Pleural Fluid Volume 1300.0 mL Pleural Appearance Hazy A (Clear) Pleural pH 7.53 (No Ref Range) pH Units Pleural RBC 0.071 H (0.000 - 0.002) M/mcL Pleural Tot Nuc Cell 2191 H (0-1000) TNC/mcL Pleural Neutrophils 72.0 % Pleural Band Neuts Test Not Performed Pleural Eosinophils Test Not Performed Pleural Basophils Test Not Performed Pleural Lymphocytes % 6.0 % Pleural Monocytes % Test Not Performed Pleural Other Cells % 22.0 % Pleural Total Protein 3.3 (No Ref Range) g/dL Pleural Albumin 1.4 (No Ref Range) g/dL Pleural LDH 559 (No Ref Range) Units/L Pleural Glucose 222 (No Ref Range) mg/dL Pleural Amylase 18 (No Ref Range) Units/L Pleural Cholesterol 72 (No Ref Range) mg/dL Pleural Triglycerides 53 (No Ref Range) mg/dL Chlamy pneumoniae PCR (Not Detect) Adenovirus (PCR) (Not Detect) B. pertussis DNA (PCR) (Not Detect) Coronavirus OC43 (PCR) (Not Detect) Coronavirus HKU1 (PCR) (Not Detect) Coronavirus 229E (PCR) (Not Detect) Coronavirus NL63 (PCR) (Not Detect) Herpes Simplex Source [place] Herpes Simplex DNA PCR NOT DETECTED Human Metapneumovir PCR (Not Detect) Influenza A (H1) PCR (Not Detect) Influ A (H1N1/09) PCR (Not Detect) Influenza A (H3) PCR (Not Detect) Influenza Type A (PCR) NOT DETECTED Influenza A Untype (PCR) (Not Detect) Influenza Type B (PCR) NOT DETECTED (Not Detect) M.pneumoniae DNA (PCR) (Not Detect) Parainfluenza 1 (PCR) (Not Detect) Parainfluenza 2 (PCR) (Not Detect) Parainfluenza 3 (PCR) (Not Detect) Parainfluenza 4 (PCR) (Not Detect) RSV (PCR) NOT DETECTED (Not Detect) Entero/Rhino (PCR) (Not Detect) 11/25/16 Range/Units 11:30 Fluid Source Fluid Volume mL Fluid Appearance (Clear) Fluid RBC Fld Tot Nucleated Cell Fluid Seg Neutrophil % % Fluid Lymphocytes % % Fluid Other Cells % % Pleural Fluid Volume mL Pleural Appearance (Clear) Pleural pH (No Ref Range) pH Units Pleural RBC (0.000 - 0.002) M/mcL Pleural Tot Nuc Cell (0-1000) TNC/mcL Pleural Neutrophils % Pleural Band Neuts Pleural Eosinophils Pleural Basophils Pleural Lymphocytes % % Pleural Monocytes % Pleural Other Cells % % Pleural Total Protein (No Ref Range) g/dL Pleural Albumin (No Ref Range) g/dL Pleural LDH (No Ref Range) Units/L Pleural Glucose (No Ref Range) mg/dL Pleural Amylase (No Ref Range) Units/L Pleural Cholesterol (No Ref Range) mg/dL Pleural Triglycerides (No Ref Range) mg/dL Chlamy pneumoniae PCR Not Detected (Not Detect) Adenovirus (PCR) Not Detected (Not Detect) B. pertussis DNA (PCR) Not Detected (Not Detect) Coronavirus OC43 (PCR) Not Detected (Not Detect) Coronavirus HKU1 (PCR) Not Detected (Not Detect) Coronavirus 229E (PCR) Not Detected (Not Detect) Coronavirus NL63 (PCR) Not Detected (Not Detect) Herpes Simplex Source Herpes Simplex DNA PCR Human Metapneumovir PCR Not Detected (Not Detect) Influenza A (H1) PCR Not Detected (Not Detect) Influ A (H1N1/09) PCR Not Detected (Not Detect) Influenza A (H3) PCR Not Detected (Not Detect) Influenza Type A (PCR) Influenza A Untype (PCR) Not Detected (Not Detect) Influenza Type B (PCR) Not Detected (Not Detect) M.pneumoniae DNA (PCR) Not Detected (Not Detect) Parainfluenza 1 (PCR) Not Detected (Not Detect) Parainfluenza 2 (PCR) Not Detected (Not Detect) Parainfluenza 3 (PCR) Not Detected (Not Detect) Parainfluenza 4 (PCR) Not Detected (Not Detect) RSV (PCR) Not Detected (Not Detect) Entero/Rhino (PCR) Not Detected (Not Detect) - Impressions Impressions Chest X-Ray 12/10/16 16:44 IMPRESSION: Relatively stable 90% opacification left hemithorax over 24 hours. No evident pneumothorax after thoracentesis. D/ / Jamie Rapp MD / Jamie Rapp MD Interpreting Provider: Jamie Rapp MD Exam - Constitutional Vitals: Temp Pulse Resp BP Pulse Ox 97.9 F 111 20 120/78 94 12/11/16 06:35 12/11/16 06:35 12/11/16 07:55 12/11/16 06:35 12/11/16 07:55 General appearance: cooperative, no acute distress, thin - Head Head exam: Present: atraumatic, normal inspection, normocephalic - Eye Eye exam: Present: EOMI, normal appearance, PERRL Pupils: Present: normal accommodation - ENT ENT exam: Present: mucous membranes moist - Neck Neck exam: Present: normal inspection - Respiratory Respiratory exam: Present: decreased breath sounds (throughout). Absent: rales , respiratory distress, rhonchi, wheezes - Cardiovascular Cardiovascular exam: Present: +S1, +S2, tachycardia. Absent: irregular rhythm - GI/Abdominal GI/Abdominal exam: Present: normal bowel sounds, soft, tenderness (generalized) . Absent: distended - Extremities Exam Extremities exam: Present: normal inspection. Absent: joint swelling, pedal edema, tenderness - Neurological Exam Neurological exam: Present: alert, oriented X3, no focal deficits - Psychiatric Psychiatric exam: Present: normal affect, normal mood - Skin Skin exam: Present: dry, intact, normal color, warm - Additional findings Additional findings: A-port noted to the right upper chest with transparent dressing C/D/I. No erythema, warmth, or drainage noted at the insertion site. Consult Discharge Plan - Plan Referrals: Alexander Cox DO [Non-Partnered Physician] - (TRIED TO CALL AND MAKE AN APPOINTMENT THE OFFICE IS CLOSED ON FRIDAYS. ) Shabana Llamas DO [Primary Care Provider] - 12/11/16 10:20 am Gerardo Kendrick MD [Partnered Physician] - 12/08/16 9:30 am
--- NOTE | 2016-12-11 13:57 | On Treatment Visit ---
- Radiation On Treatment Visit Oncology history: 56-year-old male presents with AJCC clinical stage IV lung cancer status post chemotherapy and SRS to brain metastases. He presents with postobstructive pneumonia and a progressive left lung mass. Current treatment: lung radiotherapy Current dose: 800 of 800 cGy Subjective: Patient did well with treatment. Vital Signs: Last Vital Signs Temp 97.9 F 12/11/16 12:04 Pulse 108 12/11/16 12:04 Resp 18 12/11/16 12:04 BP 110/70 12/11/16 12:04 Pulse Ox 97 12/11/16 12:04 ECO Physical exam: GENERAL: Alert and oriented, well appearing. Mental Status: Affect appropriate for circumstances - Imaging Imaging completed: PORT FILM Image notes: The above images have been reviewed []. The set up was reviewed. The dosimetry, dose delivery, and treatment parameters have been reviewed. - Assessment Assessment: Mr. Bliss did well with treatment. I will see him in 1 month. Sincerely, Wilfredo Woodall MD Radiation Oncology [facility] - Patient Problem List (1) Lung cancer Status: Acute Code(s): C34.90 - Malignant neoplasm of unspecified part of unspecified bronchus or lung Qualifiers: Laterality: left Lung location: unspecified part of lung Qualified Code(s ): C34.92 - Malignant neoplasm of unspecified part of left bronchus or lung SNOMED Code(s): 952719163 (2) Postobstructive pneumonia Status: Acute Code(s): J18.9 - Pneumonia, unspecified organism SNOMED Code(s ): 055091789
[2016-12-11] MEDS: Gabapentin 300 MG CAPSULE PO SCH ×2 (16:07→20:57)
--- NOTE | 2016-12-11 17:21 | Pulmonology Progress Note ---
Date of Encounter: 12/11/16 Time of Encounter: 04:50 Assessment and Plan (1) Pneumonia Current Visit: Yes Status: Acute Patient with postobstructive pneumonia and currently undergoing radiation therapy and hopefully that will help to improve his obstruction. Patient overall condition is in my opinion not that good candidate for debulking and this was discussed with patient and his family as well as primary team. Qualifiers: Pneumonia type: due to unspecified organism Laterality: left Lung location: upper lobe of lung Qualified Code(s): J18.1 - Lobar pneumonia, unspecified organism (2) Lung cancer Current Visit: Yes Status: Chronic Patient is following up with radiation oncology. Qualifiers: Laterality: left Lung location: unspecified part of lung Qualified Code(s ): C34.92 - Malignant neoplasm of unspecified part of left bronchus or lung (3) Pleural effusion on left Current Visit: Yes Status: Acute This is malignant in nature and status post thoracentesis with improvement in symptoms. I suspect he will benefit from Pleurx pleural catheter, if his condition worsen again then we can arrange that for him, Otherwise repeat thoracentesis for comfort. Subjective Principal diagnosis: Pneumonia Interval history: Patient feels thoracentesis has helped him to breathe better, however he continued to have generalized pain. Objective PUL Vital signs: Last Vital Signs Temp 97.9 F 12/11/16 16:19 Pulse 105 12/11/16 16:19 Resp 20 12/11/16 16:19 BP 100/67 12/11/16 16:19 Pulse Ox 95 12/11/16 16:19 General appearance: appears uncomfortable ENT: oropharynx moist Neck: supple Effort: mildly labored Auscultation: left: diminished breath sounds, right: rhonchi Percussion: left: dull Cardiovascular: regular rate and rhythm Gastrointestinal: normoactive bowel sounds Extremities: edema normal mental status, non-focal exam depressed Results - Laboratory Findings CBC and BMP: 12/11/16 05:55 12/11/16 05:55 ABG ABG pH 7.52 pH Units (7.32-7.45) H 12/11/16 04:07 ABG pCO2 59 mmHg (35-45) H 12/11/16 04:07 ABG pO2 59 mmHg (85-104) L 12/11/16 04:07 ABG O2 Saturation 93 % (95-98) L 12/11/16 04:07 PT/INR, D-dimer PT 14.1 Seconds (9.4-12.1) H 11/20/16 00:10 Abnormal lab findings: Abnormal lab results WBC 22.0 K/mcL (4.3-11.1) H 12/11/16 05:55 RBC 3.22 M/mcL (4.19-5.50) L 12/11/16 05:55 Hgb 9.2 g/dL (12.9-16.9) L 12/11/16 05:55 Hct 29.0 % (37.5-50.1) L 12/11/16 05:55 Neutrophils # 15.7 K/mcL (1.6-8.9) H 12/10/16 04:05 Nucleated RBCs/100 WBC 0.1 /100 WBC (0) H 12/06/16 06:04 PT 14.1 Seconds (9.4-12.1) H 11/20/16 00:10 APTT 24.9 Seconds (26.0-36.0) L 11/20/16 00:10 ABG pH 7.52 pH Units (7.32-7.45) H 12/11/16 04:07 ABG pCO2 59 mmHg (35-45) H 12/11/16 04:07 ABG pO2 59 mmHg (85-104) L 12/11/16 04:07 ABG HCO3 48.2 mEQ/L (21-27) H 12/11/16 04:07 ABG Total CO2 50.0 mEq/L (20-26) H 12/11/16 04:07 ABG O2 Saturation 93 % (95-98) L 12/11/16 04:07 ABG Base Excess 22.2 mEq/L (-2.0 to 3.0) H 12/11/16 04:07 Potassium 3.3 mEq/L (3.5-4.5) L 12/11/16 05:55 Chloride 89 mEq/L (98-109) L 12/11/16 05:55 Carbon Dioxide 40 mEq/L (19-29) H* 12/11/16 05:55 BUN 27 mg/dL (8-26) H 12/11/16 05:55 Creatinine 1.49 mg/dL (0.72-1.25) H 12/11/16 05:55 Est GFR ( Amer) 59 (> 60) L 12/11/16 05:55 Est GFR (Non-Af Amer) 48 (> 60) L 12/11/16 05:55 Glucose 210 mg/dL (70-99) H 12/11/16 05:55 POC Glucose 97 (58-89) H 12/04/16 11:47 Magnesium 1.0 mg/dL (1.6-2.6) L 12/11/16 05:55 Iron 14 mcg/dL (65-175) L 11/25/16 09:45 % Saturation 10 % (20-55) L 11/25/16 09:45 Transferrin 103 mg/dL (174-364) L 11/25/16 09:45 Troponin I 0.05 ng/mL (0-0.03) H* 11/20/16 16:26 Albumin 2.0 g/dL (3.5-5.0) L 12/11/16 05:55 Globulin 4.0 g/dL (2.4-3.5) H 12/11/16 05:55 Albumin/Globulin Ratio 0.5 (1.1-2.2) L 12/11/16 05:55 Amylase 18 Units/L (25-125) L 11/25/16 16:04 Vitamin B12 865 pg/mL (213-816) H 11/25/16 09:45 Procalcitonin 0.87 ng/mL (<=0.10) H 11/25/16 16:04 Pleural Appearance Hazy (Clear) A 12/10/16 16:37 Pleural RBC 0.071 M/mcL (0.000-0.002) H 12/10/16 16:37 Pleural Tot Nuc Cell 2191 TNC/mcL (0-1000) H 12/10/16 16:37 Vancomycin Trough 71.6 mcg/mL (10-20) H* 11/24/16 03:25 - Microbiology Findings Microbiology Findings: Microbiology, Last 48 Hours 12/10/16 16:37 Body Fluid Culture - Preliminary Pleural Fluid 12/04/16 14:26 Legionella Culture - Final Left Upper Lobe Lung - Clinical Findings Intake & Output: Intake & Output 12/11/16 12/11/16 12/11/16 07:59 15:59 23:59 Intake Total 400 / 400 100 / 100 Output Total 600 / 600 Balance 400 / 400 -500 / -500 Weight 65.3 kg Consult Discharge Plan - Plan Referrals: Alexander Cox DO [Non-Partnered Physician] - (TRIED TO CALL AND MAKE AN APPOINTMENT THE OFFICE IS CLOSED ON FRIDAYS. ) Shabana Llamas DO [Primary Care Provider] - 12/11/16 10:20 am (Patient will follow up with cancer physician) Gerardo Kendrick MD [Partnered Physician] - 12/08/16 9:30 am (Patient is getting treatment at cancer center everyday...)
[2016-12-11] MEDS: *HR* OxyCODONE ER (12 HR) 10 MG TABLET PO SCH (18:24)
[2016-12-12] MEDS: Dexamethasone 4 MG/ML VIAL IVP SCH ×4 (00:34→20:25)
[2016-12-12] MEDS: Ipratropium/Albuterol Neb 3 ML IH SCH ×5 (03:28→20:36)
[2016-12-12] MEDS: *HR* OxyCODONE Immed Rel 5 MG TABLET PO PRN ×4 (04:22→20:25)
[2016-12-12] MEDS: *HR* OxyCODONE ER (12 HR) 10 MG TABLET PO SCH ×2 (06:49→17:56)
[2016-12-12 07:25] LABS: INR 1.4; Prothrombin Time 14.8 Seconds (9.4-12.1)
[2016-12-12 07:35] LABS: Alanine Aminotransferase 9 Units/L (0-55); Albumin 2.2 g/dL (3.5-5.0); Albumin/Globulin Ratio 0.6 (1.1-2.2); Alkaline Phosphatase 113 Units/L (38-126); Aspartate Amino Transferase 23 Units/L (5-34); BUN/Creatinine Ratio 24 (6-26); Bilirubin,Total 0.5 mg/dL (0.2-1.2); Blood Urea Nitrogen 31 mg/dL (8-26); Calcium 8.9 mg/dL (8.6-10.8); Carbon Dioxide 38 mEq/L (19-29); Chloride 90 mEq/L (98-109); Glucose 163 mg/dL (70-99); Osmolality,Calculated 294 (280-300); Potassium 3.8 mEq/L (3.5-4.5); Sodium 137 mEq/L (136-145); Total Protein 6.2 g/dL (6.0-8.3); eGFR For African Americans > 60 (> 60); eGFR For Non-African Americans 56 (> 60)
[2016-12-12 07:36] LABS: Hematocrit 31.2 % (37.5-50.1); Hemoglobin 9.8 g/dL (12.9-16.9); Mean Corpuscular HGB Conc 31.4 g/dL (31.6-35.5); Mean Corpuscular Hemoglobin 28.3 pg (28.0-33.3); Mean Corpuscular Volume 90.2 fL (83.0-100.0); Mean Platelet Volume 10.5 fL (9.4-12.4); Platelet Count 303 K/mcL (140-400); Red Blood Count 3.46 M/mcL (4.19-5.50); Red Cell Distribution Width 13.9 % (11.5-14.5)
--- NOTE | 2016-12-12 08:10 | Internal Med Progress Note ---
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 If cultures are negative pulmonology advocates discontinuation of antibiotics. Continue dexaethasone duo nebs, and Mucinex Palliative care following Oncology following Pulmonary following Patient had left thoracentesis with 1400 mL of serosanguineous fluid drained . Pleural fluid analysis revealed an exudative pleural effusion which could be contributing to the leukocytosis with 2191 total nucleated cells. Culture pending Rad oncology performed radiotherapy 12/11/16 and will continue monitoring. ABG shows slightly worsening Metabolic alkalosis with superimposed respiratory acidosis. Will encourage BiPAP as tolerated. Patient currently on 3 L on oxygen via nasal cannula. Baseline is 2 L of oxygen at home (2) Primary lung cancer with metastasis from lung to other site Current Visit: Yes Status: Chronic Assessment and plan: AJCC clinical stage IV lung cancer status post chemotherapy and SRS to brain metastases, possible mets in liver as well as adrenals Patient reports that he has received one cycle of chemotherapy so far. Oncology to treat with immunotherapy either alone or in combination chemotherapy if his overall condition permits and does not anticipate any issues with immunotherapy based on kidney function. Radiation oncology performed radiation treatment 12/11/16. Gabapentin started for neuropathic pain. PT and OT has seen patient and recommends therapy. Patient DNRCC - A. Patient goal is returm home HH services. SS involved in case and working on home set-up. Will cont to follow. Qualifiers: Laterality: unspecified laterality Qualified Code(s): C34.90 - Malignant neoplasm of unspecified part of unspecified bronchus or lung (3) Postobstructive pneumonia Current Visit: Yes Status: Acute Assessment and plan: See above. Rocephin (Day 7) If cultures are negative pulmonology advocates discontinuation of antibiotics. Continue supplement oxygen (4) Pleural effusion on left Current Visit: Yes Status: Acute Assessment and plan: Status post left-sided thoracentesis 12/10/16 which revealed an exudative pleural effusion which could be contributing to the leukocytosis (5) Acute kidney injury Current Visit: Yes Status: Acute Assessment and plan: Suspect due to multiple factors including sepsis, vancomycin. Renal function improving gradually and nephrology has recommended discharge Oncology does not anticipate any issues with immunotherapy based on kidney function. (6) Metabolic alkalosis with respiratory acidosis Current Visit: Yes Status: Acute Assessment and plan: Slowly improving Rated to acute kidney injury. Discontinued bicarbonate. Continue to monitor (7) Decreased appetite Current Visit: Yes Status: Acute Assessment and plan: Improved. May consider appetite stimulation if necessary, will discuss with palliative care. (8) Sepsis Current Visit: Yes Status: Resolved Assessment and plan: Related to gram-negative sepsis secondary to gram-negative pneumonia/ E coli. Infectious disease following. Completed 7 days of Rocephin treatment Qualifiers: Sepsis type: sepsis due to unspecified organism Qualified Code(s): A41.9 - Sepsis, unspecified organism (9) Therapeutic opioid induced constipation Current Visit: Yes Status: Acute Assessment and plan: Patient had bowel movement 3 days ago. Continue laxatives when necessary. (10) Cancer associated pain Current Visit: Yes Status: Chronic Assessment and plan: Patient reports pain level is controlled on oxycodone and probably would require heavy pain medication as outpatient if he has been referred to palliative care. Tylenol changed to scheduled every 6 hours instead of when necessary. Discontinued morphine due to renal insufficiency (11) CVA (cerebral vascular accident) Current Visit: No Status: Chronic Assessment and plan: Continue to monitor. Qualifiers: CVA mechanism: unspecified Qualified Code(s): I63.9 - Cerebral infarction, unspecified (12) DVT prophylaxis Current Visit: No Status: Acute Assessment and plan: Heparin and SCDs Patient seen and examined, case discussed with him and agreed upon with Dr. Stevens - Subjective Interval history: Patient resting in bed on 3L supplemental O2, denies any new complaints, and reports appetite is improved. Pt denies worsening SOB, fevers, chills, vomiting , diarrhea, or dysuria. Pain level is controlled on oxycodone - Constitutional Vitals: Temp Pulse Resp BP Pulse Ox 98.1 F 105 18 123/82 94 12/12/16 06:59 12/12/16 06:59 12/12/16 06:59 12/12/16 06:59 12/12/16 06:59 General appearance: Present: cachectic, cooperative, A&O X 3, pleasant, underweight, answers questions appropriately - Head Head exam: Present: atraumatic, normocephalic - Eye Eye exam: Present: PERRL, conjuntiva pink, sclera anicteric Pupils: Present: PERRL - ENT ENT exam: Present: mucous membranes moist, normal oropharynx - Neck Neck exam general surgery: Present: supple, trachea midline. Absent: lymphadenopathy - Respiratory Respiratory exam: Present: chest wall tenderness, decreased breath sounds. Absent: accessory muscle use, rales, rhonchi, wheezes - Cardiovascular Cardiovascular exam: Present: RRR, +S1, +S2. Absent: diastolic murmur, gallop, rubs, systolic murmur - GI/Abdominal GI/Abdominal exam: Present: normal bowel sounds, soft, no peritoneal signs. Absent: distended, tenderness - Extremities Exam Extremities exam: Present: warm, radial pulses palpable and symetrical. Absent : calf tenderness, cyanotic, pedal edema - Neurological Exam Neurological exam: Present: CN II-XII intact, oriented X3, no focal deficits. Absent: pronater drift, facial droop, speech deficit - Psychiatric Psychiatric exam: Present: normal affect, normal mood - Skin Skin exam: Present: dry, intact Internal Medicine: Result - Labs CBC & Chem 7: 12/12/16 06:24 12/12/16 06:24 Labs: Short CBC 12/12/16 Range/Units 06:24 WBC 24.4 H (4.3-11.1) K/mcL Hgb 9.8 L (12.9-16.9) g/dL Hct 31.2 L (37.5-50.1) % Plt Count 303 (140-400) K/mcL BMP 12/12/16 06:24 Sodium 137 Potassium 3.8 Chloride 90 L Carbon Dioxide 38 H BUN 31 H Creatinine 1.31 H Glucose 163 H Calcium 8.9 Liver Function 12/12/16 Range/Units 06:24 Total Bilirubin 0.5 (0.2-1.2) mg/dL AST 23 (5-34) Units/L ALT 9 (0-55) Units/L Alkaline Phosphatase 113 (38-126) Units/L Albumin 2.2 L (3.5-5.0) g/dL - ABG Interpretation Interpretation: ABG interpreted by me ABG results: ABG ABG pH 7.52 pH Units (7.32-7.45) H 12/11/16 04:07 ABG pCO2 59 mmHg (35-45) H 12/11/16 04:07 ABG pO2 59 mmHg (85-104) L 12/11/16 04:07 ABG O2 Saturation 93 % (95-98) L 12/11/16 04:07 PT/INR, D-dimer PT 14.8 Seconds (9.4-12.1) H 12/12/16 06:24 Interpretation: respiratory acidosis, metabolic alkalosis Consult Discharge Plan - Plan Referrals: Alexander Cox DO [Non-Partnered Physician] - (TRIED TO CALL AND MAKE AN APPOINTMENT THE OFFICE IS CLOSED ON FRIDAYS. ) Shabana Llamas DO [Primary Care Provider] - (Patient will follow up with cancer physician) Gerardo Kendrick MD [Partnered Physician] - (Patient is getting treatment at cancer center everyday...) <Celestine Stevens - Last Filed: 12/12/16 15:54> Date of Encounter: 12/12/16 - Assessment and plan (1) Acute on chronic respiratory failure with hypoxia and hypercapnia Current Visit: Yes Status: Acute (2) Pneumonia due to gram-negative bacteria Current Visit: Yes Status: Acute Assessment and plan: Culture neg thus far. Anticipate d/c abx soon. (3) Acute kidney injury Current Visit: Yes Status: Acute (4) Pleural effusion on left Current Visit: Yes Status: Acute (5) Essential hypertension Current Visit: No Status: Chronic Assessment and plan: Controlled currently. (6) GERD (gastroesophageal reflux disease) Current Visit: No Status: Chronic Qualifiers: Esophagitis presence: esophagitis presence not specified Qualified Code(s) : K21.9 - Gastro-esophageal reflux disease without esophagitis (7) Abdominal pain Current Visit: Yes Status: Acute Assessment and plan: Pain meds adjusted per palliative care. Will schedule Tylenol and see if that helps. Qualifiers: Abdominal location: left upper quadrant Qualified Code(s): R10.12 - Left upper quadrant pain (8) Decreased appetite Current Visit: Yes Status: Acute (9) Sepsis Current Visit: Yes Status: Resolved Qualifiers: Sepsis type: sepsis due to unspecified organism Qualified Code(s): A41.9 - Sepsis, unspecified organism (10) Anxiety Current Visit: Yes Status: Chronic (11) Cancer associated pain Current Visit: Yes Status: Chronic (12) Therapeutic opioid induced constipation Current Visit: Yes Status: Acute (13) Tobacco abuse Current Visit: Yes Status: Chronic - Constitutional Vitals: Temp Pulse Resp BP Pulse Ox 97.8 F 109 18 115/81 94 12/12/16 15:11 12/12/16 15:11 12/12/16 15:11 12/12/16 15:11 12/12/16 15:11 Internal Medicine: Result - Labs CBC & Chem 7: 12/12/16 06:24 12/12/16 06:24 Labs: Short CBC 12/12/16 Range/Units 06:24 WBC 24.4 H (4.3-11.1) K/mcL Hgb 9.8 L (12.9-16.9) g/dL Hct 31.2 L (37.5-50.1) % Plt Count 303 (140-400) K/mcL BMP 12/12/16 06:24 Sodium 137 Potassium 3.8 Chloride 90 L Carbon Dioxide 38 H BUN 31 H Creatinine 1.31 H Glucose 163 H Calcium 8.9 Liver Function 12/12/16 Range/Units 06:24 Total Bilirubin 0.5 (0.2-1.2) mg/dL AST 23 (5-34) Units/L ALT 9 (0-55) Units/L Alkaline Phosphatase 113 (38-126) Units/L Albumin 2.2 L (3.5-5.0) g/dL - ABG Interpretation ABG results: ABG ABG pH 7.45 pH Units (7.32-7.45) 12/12/16 10:43 ABG pCO2 53 mmHg (35-45) H 12/12/16 10:43 ABG pO2 64 mmHg (85-104) L 12/12/16 10:43 ABG O2 Saturation 93 % (95-98) L 12/12/16 10:43 PT/INR, D-dimer PT 14.8 Seconds (9.4-12.1) H 12/12/16 06:24 - Attending Attestation I examined this patient and my medical decision-making was reviewed with the Resident Physician on 12/12/16. I agree with the documented findings, disposition and treatment plan as described except to the extent set forth below. Mr. Bliss is currently admitted for respiratory failure and post obstructive pneumonia and other complications from metastatic lung cancer. He remains moderate to high risk due to potential for worsening respiratory status. Mr. Bliss is feeling OK at this time. He is playing a dice game with his sister. He is tired as therapy "worked me hard today." Concerned about his pain medications - feels his Percocet helped more. No nausea or vomiting. No fever or chills. Exam Alert. Comfortable at rest Deep moist cough Rhonchi heard Heart reg Mucus membranes moist No edema I/P 1. Resp failure - on oxygen currently 2. Metastatic lung cancer - my need Pleurx if effusion recurs. 3. Presumed post obst pneumonia - cx negative thus far. Further diagnoses and plan as above.
[2016-12-12] MEDS: Aspirin 81 MG TAB.CHEW PO SCH (08:55)
[2016-12-12] MEDS: Folic Acid 1 MG TABLET PO SCH (08:55)
[2016-12-12] MEDS: amLODIPine 5 MG TABLET PO SCH ×2 (08:55→20:26)
[2016-12-12] MEDS: lamoTRIgine 25 MG TABLET PO SCH ×2 (08:56→20:26)
[2016-12-12] MEDS: Sennosides/Docusate Sodium TABLET PO SCH ×2 (08:56→20:26)
[2016-12-12] MEDS: Magnesium Oxide 400 MG TABLET PO SCH ×2 (08:56→20:25)
[2016-12-12] MEDS: Gabapentin 300 MG CAPSULE PO SCH ×3 (08:56→20:25)
[2016-12-12] MEDS: Metoprolol XL (24 HR) Succ 50 MG TAB.ER.24H PO SCH (08:57)
[2016-12-12] MEDS: *HR* Heparin 5,000 UNIT/ML VIAL SQ SCH ×2 (09:00→15:03)
[2016-12-12] MEDS: Nicotine 21 MG PATCH.TD24 TD SCH (09:00)
[2016-12-12] MEDS: GuaiFENesin/Dextromethorphan TABLET PO SCH ×2 (09:02→20:25)
--- NOTE | 2016-12-12 09:29 | Pulmonology Progress Note ---
Date of Encounter: 12/12/16 Time of Encounter: 09:26 Assessment and Plan (1) Pleural effusion on left Current Visit: Yes Status: Acute Patient with known malignant pleural effusion. Currently he denies severe breathlessness. Repeat imaging will be obtained next week. If the patient has profound effusion and temporal with worsening of breathlessness then a Pleurx catheter can be placed since the effusion is recurrent and will continue to oppose an issue for this particular individual. Based on the evaluation performed today, it is uncertain if this patient has pneumonia. If cultures are negative I advocate discontinuation of antibiotics. Code(s): J90 - Pleural effusion, not elsewhere classified SNOMED Code(s): 66837673 Subjective Principal diagnosis: Dyspnea, pleural effusion, advanced lung cancer Interval history: The patient denies any severe breathlessness at this time. He notes generalized pain and fatigue however. Objective PUL Vital signs: Last Vital Signs Temp 98.1 F 12/12/16 06:59 Pulse 105 12/12/16 06:59 Resp 18 12/12/16 06:59 BP 123/82 12/12/16 06:59 Pulse Ox 94 12/12/16 06:59 General appearance: no acute distress Eyes: nonicteric ENT: oropharynx moist Neck: supple Auscultation: left: diminished breath sounds Percussion: left: dull Cardiovascular: regular rate and rhythm Gastrointestinal: normoactive bowel sounds Integumentary: normal Extremities: no cyanosis, no edema Musculoskeletal: no deformities non-focal exam, other (Mildly lethargic) mood appropriate Results - Laboratory Findings CBC and BMP: 12/12/16 06:24 12/12/16 06:24 ABG ABG pH 7.52 pH Units (7.32-7.45) H 12/11/16 04:07 ABG pCO2 59 mmHg (35-45) H 12/11/16 04:07 ABG pO2 59 mmHg (85-104) L 12/11/16 04:07 ABG O2 Saturation 93 % (95-98) L 12/11/16 04:07 PT/INR, D-dimer PT 14.8 Seconds (9.4-12.1) H 12/12/16 06:24 Abnormal lab findings: Abnormal lab results WBC 24.4 K/mcL (4.3-11.1) H 12/12/16 06:24 RBC 3.46 M/mcL (4.19-5.50) L 12/12/16 06:24 Hgb 9.8 g/dL (12.9-16.9) L 12/12/16 06:24 Hct 31.2 % (37.5-50.1) L 12/12/16 06:24 MCHC 31.4 g/dL (31.6-35.5) L 12/12/16 06:24 Neutrophils # 15.7 K/mcL (1.6-8.9) H 12/10/16 04:05 Nucleated RBCs/100 WBC 0.1 /100 WBC (0) H 12/06/16 06:04 PT 14.8 Seconds (9.4-12.1) H 12/12/16 06:24 APTT 24.9 Seconds (26.0-36.0) L 11/20/16 00:10 ABG pH 7.52 pH Units (7.32-7.45) H 12/11/16 04:07 ABG pCO2 59 mmHg (35-45) H 12/11/16 04:07 ABG pO2 59 mmHg (85-104) L 12/11/16 04:07 ABG HCO3 48.2 mEQ/L (21-27) H 12/11/16 04:07 ABG Total CO2 50.0 mEq/L (20-26) H 12/11/16 04:07 ABG O2 Saturation 93 % (95-98) L 12/11/16 04:07 ABG Base Excess 22.2 mEq/L (-2.0 to 3.0) H 12/11/16 04:07 Chloride 90 mEq/L (98-109) L 12/12/16 06:24 Carbon Dioxide 38 mEq/L (19-29) H 12/12/16 06:24 BUN 31 mg/dL (8-26) H 12/12/16 06:24 Creatinine 1.31 mg/dL (0.72-1.25) H 12/12/16 06:24 Est GFR (Non-Af Amer) 56 (> 60) L 12/12/16 06:24 Glucose 163 mg/dL (70-99) H 12/12/16 06:24 POC Glucose 97 (58-89) H 12/04/16 11:47 Magnesium 1.0 mg/dL (1.6-2.6) L 12/11/16 05:55 Iron 14 mcg/dL (65-175) L 11/25/16 09:45 % Saturation 10 % (20-55) L 11/25/16 09:45 Transferrin 103 mg/dL (174-364) L 11/25/16 09:45 Troponin I 0.05 ng/mL (0-0.03) H* 11/20/16 16:26 Albumin 2.2 g/dL (3.5-5.0) L 12/12/16 06:24 Globulin 4.0 g/dL (2.4-3.5) H 12/12/16 06:24 Albumin/Globulin Ratio 0.6 (1.1-2.2) L 12/12/16 06:24 Amylase 18 Units/L (25-125) L 11/25/16 16:04 Vitamin B12 865 pg/mL (213-816) H 11/25/16 09:45 Procalcitonin 0.87 ng/mL (<=0.10) H 11/25/16 16:04 Pleural Appearance Hazy (Clear) A 12/10/16 16:37 Pleural RBC 0.071 M/mcL (0.000-0.002) H 12/10/16 16:37 Pleural Tot Nuc Cell 2191 TNC/mcL (0-1000) H 12/10/16 16:37 Vancomycin Trough 71.6 mcg/mL (10-20) H* 11/24/16 03:25 - Microbiology Findings Microbiology Findings: Microbiology, Last 48 Hours 12/10/16 16:37 Body Fluid Culture - Preliminary Pleural Fluid 12/04/16 14:26 Legionella Culture - Final Left Upper Lobe Lung - Clinical Findings Intake & Output: Intake & Output 12/11/16 12/12/16 12/12/16 23:59 07:59 15:59 Intake Total 300 / 300 100 / 100 Output Total 500 / 500 0 / 0 Balance -200 / -200 100 / 100 Weight 66.406 kg Consult Discharge Plan - Plan Referrals: Alexander Cox DO [Non-Partnered Physician] - (TRIED TO CALL AND MAKE AN APPOINTMENT THE OFFICE IS CLOSED ON FRIDAYS. ) Shabana Llamas DO [Primary Care Provider] - (Patient will follow up with cancer physician) Gerardo Kendrick MD [Partnered Physician] - (Patient is getting treatment at cancer center everyday...)
[2016-12-12 10:53] LABS: ABG HCO3 36.8 mEQ/L (21-27); ABG Oxygen Saturation 93 % (95-98); ABG PCO2 53 mmHg (35-45); ABG PH 7.45 pH Units (7.32-7.45); ABG PO2 64 mmHg (85-104); ABG TCO2 38.4 mEq/L (20-26)
[2016-12-12 10:54] LABS: Blood Gas FiO2 32 %; Blood Gas Liter Flow 3 L/MIN
--- NOTE | 2016-12-12 12:25 | Palliative Progress Note ---
Date of Encounter: 12/12/16 Time of Encounter: 12:00 - Assessment and plan (1) Cancer associated pain Current Visit: Yes Status: Chronic Assessment and plan: Patient complains of constant ache to generalized body. Rates 4/10. Scheduled Oxycontin restarted yesterday and Gabapentin started yesterday as well. Only requested 4 additional BTP doses. Will monitor and increase scheduled as needed. (2) Counseling regarding advanced directives and goals of care Current Visit: Yes Status: Acute Assessment and plan: Patient desires to go home at [place] and stay with sister. He states that he is weak and needs therapy at home as well. PT and OT has seen patient and recommends therapy. Patient ambulated with walker. Patient DNRCC - A. I encouraged patient to consider rehab for short term stay at [place]. Patient desires to go home with family. (3) Therapeutic opioid induced constipation Current Visit: Yes Status: Acute Assessment and plan: Last BM 12/12/16. On Miralax now. Appetite fair. Will monitor I&O. (4) Lung cancer Current Visit: Yes Status: Chronic Assessment and plan: Radiation in progress for lung cancer Qualifiers: Laterality: left Lung location: unspecified part of lung Qualified Code(s ): C34.92 - Malignant neoplasm of unspecified part of left bronchus or lung - Time Spent With Patient Total time spent is greater than 50% in coordination of care (as documented) at patient's floor/unit and/or counseling patient: 25 - 35 minutes - Subjective Interval history: Patient sitting up in bed. C/O generalized aching pain. Rates pain 4/10 and intensity of constant ache. - Constitutional Vitals: Abnormal lab results WBC 24.4 K/mcL (4.3-11.1) H 12/12/16 06:24 RBC 3.46 M/mcL (4.19-5.50) L 12/12/16 06:24 Hgb 9.8 g/dL (12.9-16.9) L 12/12/16 06:24 Hct 31.2 % (37.5-50.1) L 12/12/16 06:24 MCHC 31.4 g/dL (31.6-35.5) L 12/12/16 06:24 Neutrophils # 15.7 K/mcL (1.6-8.9) H 12/10/16 04:05 Nucleated RBCs/100 WBC 0.1 /100 WBC (0) H 12/06/16 06:04 PT 14.8 Seconds (9.4-12.1) H 12/12/16 06:24 APTT 24.9 Seconds (26.0-36.0) L 11/20/16 00:10 ABG pCO2 53 mmHg (35-45) H 12/12/16 10:43 ABG pO2 64 mmHg (85-104) L 12/12/16 10:43 ABG HCO3 36.8 mEQ/L (21-27) H 12/12/16 10:43 ABG Total CO2 38.4 mEq/L (20-26) H 12/12/16 10:43 ABG O2 Saturation 93 % (95-98) L 12/12/16 10:43 ABG Base Excess 11.0 mEq/L (-2.0 to 3.0) H 12/12/16 10:43 Chloride 90 mEq/L (98-109) L 12/12/16 06:24 Carbon Dioxide 38 mEq/L (19-29) H 12/12/16 06:24 BUN 31 mg/dL (8-26) H 12/12/16 06:24 Creatinine 1.31 mg/dL (0.72-1.25) H 12/12/16 06:24 Est GFR (Non-Af Amer) 56 (> 60) L 12/12/16 06:24 Glucose 163 mg/dL (70-99) H 12/12/16 06:24 POC Glucose 97 (58-89) H 12/04/16 11:47 Magnesium 1.0 mg/dL (1.6-2.6) L 12/11/16 05:55 Iron 14 mcg/dL (65-175) L 11/25/16 09:45 % Saturation 10 % (20-55) L 11/25/16 09:45 Transferrin 103 mg/dL (174-364) L 11/25/16 09:45 Troponin I 0.05 ng/mL (0-0.03) H* 11/20/16 16:26 Albumin 2.2 g/dL (3.5-5.0) L 12/12/16 06:24 Globulin 4.0 g/dL (2.4-3.5) H 12/12/16 06:24 Albumin/Globulin Ratio 0.6 (1.1-2.2) L 12/12/16 06:24 Amylase 18 Units/L (25-125) L 11/25/16 16:04 Vitamin B12 865 pg/mL (213-816) H 11/25/16 09:45 Procalcitonin 0.87 ng/mL (<=0.10) H 11/25/16 16:04 Pleural Appearance Hazy (Clear) A 12/10/16 16:37 Pleural RBC 0.071 M/mcL (0.000-0.002) H 12/10/16 16:37 Pleural Tot Nuc Cell 2191 TNC/mcL (0-1000) H 12/10/16 16:37 Vancomycin Trough 71.6 mcg/mL (10-20) H* 11/24/16 03:25 - Head Head exam: Present: atraumatic, normal inspection, normocephalic - Eye Pupils: Present: PERRL - ENT ENT exam: Present: mucous membranes moist - Neck Neck exam: Present: full ROM - Respiratory Respiratory exam: Present: decreased breath sounds - Expanded Respiratory Exam Location: decreased breath sounds: Left, Right, Lower - Cardiovascular Cardiovascular exam: Present: RRR, +S1, +S2 - GI/Abdominal GI/Abdominal exam: Present: normal bowel sounds - Extremities Exam Extremities exam: Present: full ROM - Back Exam Back exam: Present: full ROM - Neurological Exam Neurological exam: Present: alert, CN II-XII intact, oriented X3 - Psychiatric Psychiatric exam: Present: normal affect - Skin Skin exam: Present: normal color, warm Palliative Quality Palliative Quality: Screen for Code Status: Yes, Screen for Goals of Care: Yes, Screen for Pain: Yes, If Pain Regimen Started, Initiate Bowel Regimen: Yes, Screen for Nausea/Vomitting: Yes Code Status: 11/20/16 03:31 Resuscitation Status: Active [RES] Routine Comment: Resuscitation Status: Full Code Resuscitation Status: Active [RES] Routine Comment: Resuscitation Status: DNR-Comfort Care-Arrest - Labs CBC & Chem 7: 12/12/16 06:24 12/12/16 06:24 Labs: Laboratory Results - last 24 hr 12/12/16 12/12/16 12/12/16 06:24 06:24 06:24 WBC 24.4 H RBC 3.46 L Hgb 9.8 L Hct 31.2 L MCV 90.2 MCH 28.3 MCHC 31.4 L RDW 13.9 Plt Count 303 MPV 10.5 PT 14.8 H INR 1.4 ABG pH ABG pCO2 ABG pO2 ABG HCO3 ABG Total CO2 ABG O2 Saturation ABG Base Excess Liter Flow Blood Gas Modality Inspired O2 Sodium 137 Potassium 3.8 Chloride 90 L Carbon Dioxide 38 H BUN 31 H Creatinine 1.31 H Est GFR ( Amer) > 60 Est GFR (Non-Af Amer) 56 L BUN/Creatinine Ratio 24 Glucose 163 H Calculated Osmolality 294 Calcium 8.9 Total Bilirubin 0.5 AST 23 ALT 9 Alkaline Phosphatase 113 Serum Total Protein 6.2 Albumin 2.2 L Globulin 4.0 H Albumin/Globulin Ratio 0.6 L 12/12/16 10:43 WBC RBC Hgb Hct MCV MCH MCHC RDW Plt Count MPV PT INR ABG pH 7.45 ABG pCO2 53 H ABG pO2 64 L ABG HCO3 36.8 H ABG Total CO2 38.4 H ABG O2 Saturation 93 L ABG Base Excess 11.0 H Liter Flow 3 Blood Gas Modality NC Inspired O2 32 Sodium Potassium Chloride Carbon Dioxide BUN Creatinine Est GFR ( Amer) Est GFR (Non-Af Amer) BUN/Creatinine Ratio Glucose Calculated Osmolality Calcium Total Bilirubin AST ALT Alkaline Phosphatase Serum Total Protein Albumin Globulin Albumin/Globulin Ratio - ABG Interpretation ABG results: ABG ABG pH 7.45 pH Units (7.32-7.45) 12/12/16 10:43 ABG pCO2 53 mmHg (35-45) H 12/12/16 10:43 ABG pO2 64 mmHg (85-104) L 12/12/16 10:43 ABG O2 Saturation 93 % (95-98) L 12/12/16 10:43 PT/INR, D-dimer PT 14.8 Seconds (9.4-12.1) H 12/12/16 06:24 Consult Discharge Plan - Plan Referrals: Alexander Cox DO [Non-Partnered Physician] - (TRIED TO CALL AND MAKE AN APPOINTMENT THE OFFICE IS CLOSED ON FRIDAYS. ) Shabana Llamas DO [Primary Care Provider] - (Patient will follow up with cancer physician) Gerardo Kendrick MD [Partnered Physician] - (Patient is getting treatment at cancer center everyday...)
[2016-12-12] MEDS: Acetaminophen 325 MG TABLET PO SCH (17:56)
[2016-12-13] MEDS: Ipratropium/Albuterol Neb 3 ML IH SCH ×7 (00:34→23:25)
[2016-12-13] MEDS: Acetaminophen 325 MG TABLET PO SCH ×5 (00:42→23:42)
[2016-12-13] MEDS: *HR* Heparin 5,000 UNIT/ML VIAL SQ SCH ×4 (00:43→23:43)
[2016-12-13] MEDS: Dexamethasone 4 MG/ML VIAL IVP SCH ×4 (00:43→18:28)
[2016-12-13] MEDS: *HR* OxyCODONE ER (12 HR) 10 MG TABLET PO SCH ×2 (06:03→18:28)
[2016-12-13 06:17] LABS: Hematocrit 30.7 % (37.5-50.1); Hemoglobin 9.8 g/dL (12.9-16.9); Mean Corpuscular HGB Conc 31.9 g/dL (31.6-35.5); Mean Corpuscular Hemoglobin 28.5 pg (28.0-33.3); Mean Corpuscular Volume 89.2 fL (83.0-100.0); Mean Platelet Volume 10.5 fL (9.4-12.4); Platelet Count 291 K/mcL (140-400); Red Blood Count 3.44 M/mcL (4.19-5.50); Red Cell Distribution Width 13.7 % (11.5-14.5)
[2016-12-13 06:29] LABS: Alanine Aminotransferase 15 Units/L (0-55); Albumin 2.1 g/dL (3.5-5.0); Albumin/Globulin Ratio 0.5 (1.1-2.2); Alkaline Phosphatase 140 Units/L (38-126); Aspartate Amino Transferase 34 Units/L (5-34); BUN/Creatinine Ratio 28 (6-26); Bilirubin,Total 0.2 mg/dL (0.2-1.2); Blood Urea Nitrogen 31 mg/dL (8-26); Calcium 8.7 mg/dL (8.6-10.8); Carbon Dioxide 32 mEq/L (19-29); Chloride 95 mEq/L (98-109); Globulin 4.2 g/dL (2.4-3.5); Glucose 188 mg/dL (70-99); Osmolality,Calculated 296 (280-300); Potassium 4.8 mEq/L (3.5-4.5); Sodium 137 mEq/L (136-145); Total Protein 6.3 g/dL (6.0-8.3); eGFR For African Americans > 60 (> 60); eGFR For Non-African Americans > 60 (> 60)
--- NOTE | 2016-12-13 09:00 | Internal Med Progress Note ---
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 Pleural fluid cultures are negative, pulmonology advocates discontinuation of antibiotics. Continue dexaethasone duo nebs, and Mucinex Palliative care following Oncology following Pulmonary following Patient had left thoracentesis with 1400 mL of serosanguineous fluid drained . Pleural fluid analysis revealed an exudative pleural effusion which could be contributing to the leukocytosis with 2191 total nucleated cells. Legionella Culture pending Rad oncology performed radiotherapy 12/11/16 and will continue monitoring. ABG shows Metabolic alkalosis with superimposed respiratory acidosis resolving. Patient currently on 3 L on oxygen via nasal cannula. Baseline is 2 L of oxygen at home Patient requests going home tomorrow and following up outpatient (2) Primary lung cancer with metastasis from lung to other site Current Visit: Yes Status: Chronic Assessment and plan: AJCC clinical stage IV lung cancer status post chemotherapy and SRS to brain metastases, possible mets in liver as well as adrenals Patient reports that he has received one cycle of chemotherapy so far. Oncology to treat with immunotherapy either alone or in combination chemotherapy if his overall condition permits and does not anticipate any issues with immunotherapy based on kidney function. Radiation oncology performed radiation treatment 12/11/16. Gabapentin for neuropathic pain. PT and OT has seen patient and recommends therapy. Patient DNRCC - A. Patient goal is returm home HH services. SS involved in case and working on home set-up. Will cont to follow. Qualifiers: Laterality: unspecified laterality Qualified Code(s): C34.90 - Malignant neoplasm of unspecified part of unspecified bronchus or lung (3) Postobstructive pneumonia Current Visit: Yes Status: Acute Assessment and plan: See above. Rocephin (Day 8) pleural cultures are negative, pulmonology advocates discontinuation of antibiotics. Continue supplement oxygen (4) Pleural effusion on left Current Visit: Yes Status: Acute Assessment and plan: Status post left-sided thoracentesis 12/10/16 which revealed an exudative pleural effusion which could be contributing to the leukocytosis (5) Acute kidney injury Current Visit: Yes Status: Acute Assessment and plan: Suspect due to multiple factors including sepsis, vancomycin. Renal function improving gradually and nephrology has recommended discharge Oncology does not anticipate any issues with immunotherapy based on kidney function. (6) Metabolic alkalosis with respiratory acidosis Current Visit: Yes Status: Acute Assessment and plan: improving, Rated to acute kidney injury. Discontinued bicarbonate. Continue to monitor (7) Decreased appetite Current Visit: Yes Status: Acute Assessment and plan: Improved. May consider appetite stimulation if necessary, will discuss with palliative care. (8) Sepsis Current Visit: Yes Status: Resolved Assessment and plan: Related to gram-negative sepsis secondary to gram-negative pneumonia/ E coli. Infectious disease following. Completed 8 days of Rocephin treatment Qualifiers: Sepsis type: sepsis due to unspecified organism Qualified Code(s): A41.9 - Sepsis, unspecified organism (9) Therapeutic opioid induced constipation Current Visit: Yes Status: Acute Assessment and plan: Patient had bowel movement today. Continue laxatives when necessary. (10) Cancer associated pain Current Visit: Yes Status: Chronic Assessment and plan: Patient reports pain level is controlled on oxycodone and probably would require heavy pain medication as outpatient if he has been referred to palliative care. Tylenol scheduled every 6 hours (11) CVA (cerebral vascular accident) Current Visit: No Status: Chronic Qualifiers: CVA mechanism: unspecified Qualified Code(s): I63.9 - Cerebral infarction, unspecified (12) Hypomagnesemia Current Visit: Yes Status: Acute Assessment and plan: Supplemental magnesium. Continue to monitor (13) DVT prophylaxis Current Visit: No Status: Acute Assessment and plan: Heparin and SCDs Patient seen and examined, case discussed with him and agreed upon with Dr. Stevens - Subjective Interval history: Patient resting in bed on 3L supplemental O2, denies any new complaints, and reports appetite improving. Pt denies worsening SOB, fevers, chills, vomiting, diarrhea, or dysuria. Pain level is controlled on oxycodone and Tylenol. Patient reports last bowel movement this a.m. Patient requests going home tomorrow and following up outpatient - Constitutional Vitals: Temp Pulse Resp BP Pulse Ox 97.7 F 95 18 116/76 98 12/13/16 07:12 12/13/16 07:12 12/13/16 07:12 12/13/16 07:12 12/13/16 07:12 General appearance: Present: cachectic, cooperative, A&O X 3, pleasant, underweight, answers questions appropriately - Head Head exam: Present: atraumatic, normocephalic - Eye Eye exam: Present: PERRL, conjuntiva pink, sclera anicteric Pupils: Present: PERRL - ENT ENT exam: Present: mucous membranes moist, normal oropharynx - Neck Neck exam general surgery: Present: supple, trachea midline. Absent: lymphadenopathy - Respiratory Respiratory exam: Present: decreased breath sounds. Absent: accessory muscle use, rales, rhonchi, wheezes Additional comments: Left greater than right, good air movement, supplemental oxygen via nasal cannula 3 L - Cardiovascular Cardiovascular exam: Present: RRR, +S1, +S2. Absent: diastolic murmur, gallop, rubs, systolic murmur - GI/Abdominal GI/Abdominal exam: Present: normal bowel sounds, soft, no peritoneal signs. Absent: distended, tenderness - Extremities Exam Extremities exam: Present: warm, radial pulses palpable and symetrical. Absent : calf tenderness, cyanotic, pedal edema - Neurological Exam Neurological exam: Present: CN II-XII intact, oriented X3, no focal deficits. Absent: pronater drift, facial droop, speech deficit - Skin Skin exam: Present: dry, intact, warm Internal Medicine: Result - Labs CBC & Chem 7: 12/13/16 05:22 12/13/16 05:22 Labs: Short CBC 12/13/16 Range/Units 05:22 WBC 21.9 H (4.3-11.1) K/mcL Hgb 9.8 L (12.9-16.9) g/dL Hct 30.7 L (37.5-50.1) % Plt Count 291 (140-400) K/mcL BMP 12/13/16 05:22 Sodium 137 Potassium 4.8 H D Chloride 95 L Carbon Dioxide 32 H BUN 31 H Creatinine 1.12 Glucose 188 H Calcium 8.7 Liver Function 12/13/16 Range/Units 05:22 Total Bilirubin 0.2 (0.2-1.2) mg/dL AST 34 (5-34) Units/L ALT 15 (0-55) Units/L Alkaline Phosphatase 140 H (38-126) Units/L Albumin 2.1 L (3.5-5.0) g/dL - ABG Interpretation Interpretation: ABG interpreted by me ABG results: PT/INR, D-dimer PT 14.8 Seconds (9.4-12.1) H 12/12/16 06:24 11/19/16 12/10/16 12/11/16 23:45 07:43 04:07 ABG pH 7.44 7.50 H 7.52 H ABG pCO2 46 H 62 H 59 H ABG pO2 62 L 55 L 59 L ABG HCO3 31.2 H 48.3 H 48.2 H ABG Total CO2 32.6 H 50.2 H 50.0 H ABG O2 Saturation 92 L 91 L 93 L ABG Base Excess 6.1 H 22.0 H 22.2 H 12/12/16 12/13/16 10:43 11:37 ABG pH 7.45 7.48 H ABG pCO2 53 H 48 H ABG pO2 64 L 79 L ABG HCO3 36.8 H 35.7 H ABG Total CO2 38.4 H 37.2 H ABG O2 Saturation 93 L 96 ABG Base Excess 11.0 H 10.8 H Interpretation: respiratory acidosis, metabolic alkalosis Consult Discharge Plan - Plan Referrals: Alexander Cox DO [Non-Partnered Physician] - (TRIED TO CALL AND MAKE AN APPOINTMENT THE OFFICE IS CLOSED ON FRIDAYS. ) Shabana Llamas DO [Primary Care Provider] - (Patient will follow up with cancer physician) Gerardo Kendrick MD [Partnered Physician] - (Patient is getting treatment at cancer center everyday...) <Celestine Stevens - Last Filed: 12/13/16 16:16> Date of Encounter: 12/13/16 - Assessment and plan (1) Acute on chronic respiratory failure with hypoxia and hypercapnia Current Visit: Yes Status: Acute (2) Pneumonia due to gram-negative bacteria Current Visit: Yes Status: Acute (3) Acute kidney injury Current Visit: Yes Status: Acute (4) Pleural effusion on left Current Visit: Yes Status: Acute (5) Essential hypertension Current Visit: No Status: Chronic (6) GERD (gastroesophageal reflux disease) Current Visit: No Status: Chronic Qualifiers: Esophagitis presence: esophagitis presence not specified Qualified Code(s) : K21.9 - Gastro-esophageal reflux disease without esophagitis (7) Abdominal pain Current Visit: Yes Status: Acute Qualifiers: Abdominal location: left upper quadrant Qualified Code(s): R10.12 - Left upper quadrant pain (8) Decreased appetite Current Visit: Yes Status: Acute (9) Sepsis Current Visit: Yes Status: Resolved Qualifiers: Sepsis type: sepsis due to unspecified organism Qualified Code(s): A41.9 - Sepsis, unspecified organism (10) Anxiety Current Visit: Yes Status: Chronic (11) Cancer associated pain Current Visit: Yes Status: Chronic (12) Therapeutic opioid induced constipation Current Visit: Yes Status: Acute (13) Tobacco abuse Current Visit: Yes Status: Chronic - Constitutional Vitals: Temp Pulse Resp BP Pulse Ox 97.2 F L 105 18 113/78 90 12/13/16 11:11 12/13/16 11:11 12/13/16 11:11 12/13/16 11:11 12/13/16 11:11 Internal Medicine: Result - Labs CBC & Chem 7: 12/13/16 05:22 12/13/16 05:22 Labs: Short CBC 12/13/16 Range/Units 05:22 WBC 21.9 H (4.3-11.1) K/mcL Hgb 9.8 L (12.9-16.9) g/dL Hct 30.7 L (37.5-50.1) % Plt Count 291 (140-400) K/mcL BMP 12/13/16 05:22 Sodium 137 Potassium 4.8 H D Chloride 95 L Carbon Dioxide 32 H BUN 31 H Creatinine 1.12 Glucose 188 H Calcium 8.7 Liver Function 12/13/16 Range/Units 05:22 Total Bilirubin 0.2 (0.2-1.2) mg/dL AST 34 (5-34) Units/L ALT 15 (0-55) Units/L Alkaline Phosphatase 140 H (38-126) Units/L Albumin 2.1 L (3.5-5.0) g/dL - ABG Interpretation ABG results: ABG ABG pH 7.48 pH Units (7.32-7.45) H 12/13/16 11:37 ABG pCO2 48 mmHg (35-45) H 12/13/16 11:37 ABG pO2 79 mmHg (85-104) L 12/13/16 11:37 ABG O2 Saturation 96 % (95-98) 12/13/16 11:37 PT/INR, D-dimer PT 14.8 Seconds (9.4-12.1) H 12/12/16 06:24 - Attending Attestation I examined this patient and my medical decision-making was reviewed with the Resident Physician on 12/13/16. I agree with the documented findings, disposition and treatment plan as described except to the extent set forth below. Mr Bliss is currently admitted for hypoxia and presumptive postobstructive pneumonia. He remains moderate risk duet to the potential for worsening respiratory status. Mr. Bliss is doing OK. He is really wanting to go home soon. No fever or chills. Breathing OK. No GI symptoms. Family at bedside. Exam Alert. Comfortable Mucus membranes dry Heart reg Decreased breath sounds and rhonchi heard Abd soft No edema I/P 1. Hypoxia on oxygen weaning as able 2. Stage 4 lung cancer 3. Metabolic alkalosis Further diagnoses and plan as above.
[2016-12-13 09:10] LABS: Magnesium 1.5 mg/dL (1.6-2.6)
[2016-12-13] MEDS: Nicotine 21 MG PATCH.TD24 TD SCH (09:27)
[2016-12-13] MEDS: GuaiFENesin/Dextromethorphan TABLET PO SCH ×2 (09:29→20:22)
[2016-12-13] MEDS: lamoTRIgine 25 MG TABLET PO SCH ×2 (09:29→20:22)
[2016-12-13] MEDS: Sennosides/Docusate Sodium TABLET PO SCH ×2 (09:29→20:27)
[2016-12-13] MEDS: Folic Acid 1 MG TABLET PO SCH (09:29)
[2016-12-13] MEDS: Aspirin 81 MG TAB.CHEW PO SCH (09:29)
[2016-12-13] MEDS: *HR* OxyCODONE Immed Rel 5 MG TABLET PO PRN ×3 (09:29→15:54)
[2016-12-13] MEDS: Magnesium Oxide 400 MG TABLET PO SCH ×2 (09:29→20:21)
[2016-12-13] MEDS: Metoprolol XL (24 HR) Succ 50 MG TAB.ER.24H PO SCH (09:30)
[2016-12-13] MEDS: Gabapentin 300 MG CAPSULE PO SCH ×3 (09:30→20:22)
[2016-12-13] MEDS: amLODIPine 5 MG TABLET PO SCH ×2 (09:31→20:22)
--- NOTE | 2016-12-13 09:40 | Palliative Progress Note ---
Date of Encounter: 12/13/16 Time of Encounter: 09:20 - Assessment and plan (1) Cancer associated pain Current Visit: Yes Status: Chronic Assessment and plan: Patient denies complaints of pain at present. Currently on scheduled Oxycontin and Gabapentin. Only requested 4 additional BTP doses. Will monitor and increase scheduled as needed. Also requested Tylenol which he reports has provided relief. (2) Counseling regarding advanced directives and goals of care Current Visit: Yes Status: Acute Assessment and plan: Patient desires to go home [place] and stay with sister. He states that he is weak and needs therapy at home as well. PT and OT has seen patient and recommends therapy. Patient participating well in PT with walker. Patient DNRCC - A. I encouraged patient to consider rehab for short term stay at [place]. Patient desires to go home with family. (3) Therapeutic opioid induced constipation Current Visit: Yes Status: Acute Assessment and plan: Last BM 12/12/16. On Miralax now. Appetite fair. Will monitor I&O. (4) Lung cancer Current Visit: Yes Status: Chronic Assessment and plan: Radiation in progress for lung cancer Qualifiers: Laterality: left Lung location: unspecified part of lung Qualified Code(s ): C34.92 - Malignant neoplasm of unspecified part of left bronchus or lung - Time Spent With Patient Total time spent is greater than 50% in coordination of care (as documented) at patient's floor/unit and/or counseling patient: less than 15 minutes - Subjective Interval history: Patient sitting up in bed. Denies pain. Reports feeling and breathing better. - Constitutional Vitals: Abnormal lab results WBC 21.9 K/mcL (4.3-11.1) H 12/13/16 05:22 RBC 3.44 M/mcL (4.19-5.50) L 12/13/16 05:22 Hgb 9.8 g/dL (12.9-16.9) L 12/13/16 05:22 Hct 30.7 % (37.5-50.1) L 12/13/16 05:22 Neutrophils # 15.7 K/mcL (1.6-8.9) H 12/10/16 04:05 Nucleated RBCs/100 WBC 0.1 /100 WBC (0) H 12/06/16 06:04 PT 14.8 Seconds (9.4-12.1) H 12/12/16 06:24 APTT 24.9 Seconds (26.0-36.0) L 11/20/16 00:10 ABG pCO2 53 mmHg (35-45) H 12/12/16 10:43 ABG pO2 64 mmHg (85-104) L 12/12/16 10:43 ABG HCO3 36.8 mEQ/L (21-27) H 12/12/16 10:43 ABG Total CO2 38.4 mEq/L (20-26) H 12/12/16 10:43 ABG O2 Saturation 93 % (95-98) L 12/12/16 10:43 ABG Base Excess 11.0 mEq/L (-2.0 to 3.0) H 12/12/16 10:43 Potassium 4.8 mEq/L (3.5-4.5) H D 12/13/16 05:22 Chloride 95 mEq/L (98-109) L 12/13/16 05:22 Carbon Dioxide 32 mEq/L (19-29) H 12/13/16 05:22 BUN 31 mg/dL (8-26) H 12/13/16 05:22 BUN/Creatinine Ratio 28 (6-26) H 12/13/16 05:22 Glucose 188 mg/dL (70-99) H 12/13/16 05:22 POC Glucose 97 (58-89) H 12/04/16 11:47 Magnesium 1.5 mg/dL (1.6-2.6) L 12/13/16 05:22 Iron 14 mcg/dL (65-175) L 11/25/16 09:45 % Saturation 10 % (20-55) L 11/25/16 09:45 Transferrin 103 mg/dL (174-364) L 11/25/16 09:45 Alkaline Phosphatase 140 Units/L (38-126) H 12/13/16 05:22 Troponin I 0.05 ng/mL (0-0.03) H* 11/20/16 16:26 Albumin 2.1 g/dL (3.5-5.0) L 12/13/16 05:22 Globulin 4.2 g/dL (2.4-3.5) H 12/13/16 05:22 Albumin/Globulin Ratio 0.5 (1.1-2.2) L 12/13/16 05:22 Amylase 18 Units/L (25-125) L 11/25/16 16:04 Vitamin B12 865 pg/mL (213-816) H 11/25/16 09:45 Procalcitonin 0.87 ng/mL (<=0.10) H 11/25/16 16:04 Pleural Appearance Hazy (Clear) A 12/10/16 16:37 Pleural RBC 0.071 M/mcL (0.000-0.002) H 12/10/16 16:37 Pleural Tot Nuc Cell 2191 TNC/mcL (0-1000) H 12/10/16 16:37 Vancomycin Trough 71.6 mcg/mL (10-20) H* 11/24/16 03:25 - Head Head exam: Present: atraumatic, normal inspection, normocephalic - Eye Eye exam: Present: PERRL Pupils: Present: PERRL - ENT ENT exam: Present: mucous membranes moist - Neck Neck exam: Present: full ROM - Respiratory Respiratory exam: Present: decreased breath sounds, CTAB - Expanded Respiratory Exam Location: decreased breath sounds: Left, Right, Lower - Cardiovascular Cardiovascular exam: Present: RRR, +S1, +S2 - GI/Abdominal GI/Abdominal exam: Present: normal bowel sounds, soft - Extremities Exam Extremities exam: Present: full ROM - Back Exam Back exam: Present: full ROM - Neurological Exam Neurological exam: Present: alert, oriented X3 - Psychiatric Psychiatric exam: Present: normal affect - Skin Skin exam: Present: normal color, warm Palliative Quality Palliative Quality: Screen for Code Status: Yes, Screen for Goals of Care: Yes, Screen for Pain: Yes, If Pain Regimen Started, Initiate Bowel Regimen: Yes, Screen for Nausea/Vomitting: Yes Code Status: 11/20/16 03:31 Resuscitation Status: Active [RES] Routine Comment: Resuscitation Status: Full Code Resuscitation Status: Active [RES] Routine Comment: Resuscitation Status: DNR-Comfort Care-Arrest - Labs CBC & Chem 7: 12/13/16 05:22 12/13/16 05:22 Labs: Laboratory Results - last 24 hr 12/12/16 12/13/16 12/13/16 10:43 05:22 05:22 WBC 21.9 H RBC 3.44 L Hgb 9.8 L Hct 30.7 L MCV 89.2 MCH 28.5 MCHC 31.9 RDW 13.7 Plt Count 291 MPV 10.5 ABG pH 7.45 ABG pCO2 53 H ABG pO2 64 L ABG HCO3 36.8 H ABG Total CO2 38.4 H ABG O2 Saturation 93 L ABG Base Excess 11.0 H Liter Flow 3 Blood Gas Modality NC Inspired O2 32 Sodium 137 Potassium 4.8 H D Chloride 95 L Carbon Dioxide 32 H BUN 31 H Creatinine 1.12 Est GFR ( Amer) > 60 Est GFR (Non-Af Amer) > 60 BUN/Creatinine Ratio 28 H Glucose 188 H Calculated Osmolality 296 Calcium 8.7 Magnesium 1.5 L Total Bilirubin 0.2 AST 34 ALT 15 Alkaline Phosphatase 140 H Serum Total Protein 6.3 Albumin 2.1 L Globulin 4.2 H Albumin/Globulin Ratio 0.5 L - ABG Interpretation ABG results: ABG ABG pH 7.45 pH Units (7.32-7.45) 12/12/16 10:43 ABG pCO2 53 mmHg (35-45) H 12/12/16 10:43 ABG pO2 64 mmHg (85-104) L 12/12/16 10:43 ABG O2 Saturation 93 % (95-98) L 12/12/16 10:43 PT/INR, D-dimer PT 14.8 Seconds (9.4-12.1) H 12/12/16 06:24 Consult Discharge Plan - Plan Referrals: Alexander Cox DO [Non-Partnered Physician] - (TRIED TO CALL AND MAKE AN APPOINTMENT THE OFFICE IS CLOSED ON FRIDAYS. ) Shabana Llamas DO [Primary Care Provider] - (Patient will follow up with cancer physician) Gerardo Kendrick MD [Partnered Physician] - (Patient is getting treatment at cancer center everyday...)
[2016-12-13] MEDS ORDERED: Magnesium Sulfate 2 GM in D5% in Water 100 ML IVPB ONE (11:32)
[2016-12-13 11:45] LABS: ABG Base Excess 10.8 mEq/L (-2.0 to 3.0); ABG HCO3 35.7 mEQ/L (21-27); ABG Oxygen Saturation 96 % (95-98); ABG PCO2 48 mmHg (35-45); ABG PH 7.48 pH Units (7.32-7.45); ABG PO2 79 mmHg (85-104); ABG TCO2 37.2 mEq/L (20-26); Blood Gas FiO2 32 %; Blood Gas Liter Flow 3 L/MIN
[2016-12-14] MEDS: Dexamethasone 4 MG/ML VIAL IVP SCH ×3 (01:36→14:09)
[2016-12-14] MEDS: *HR* OxyCODONE Immed Rel 5 MG TABLET PO PRN ×3 (03:29→11:37)
[2016-12-14] MEDS: Ipratropium/Albuterol Neb 3 ML IH SCH ×4 (04:01→15:59)
[2016-12-14 05:35] LABS: Hemoglobin 10.3 g/dL (12.9-16.9)
[2016-12-14 05:37] LABS: Hematocrit 32.9 % (37.5-50.1); Mean Corpuscular HGB Conc 31.3 g/dL (31.6-35.5); Mean Corpuscular Volume 89.4 fL (83.0-100.0); Mean Platelet Volume 10.1 fL (9.4-12.4); Platelet Count 304 K/mcL (140-400); Red Blood Count 3.68 M/mcL (4.19-5.50); Red Cell Distribution Width 13.8 % (11.5-14.5)
[2016-12-14 05:50] LABS: BUN/Creatinine Ratio 27 (6-26); Blood Urea Nitrogen 24 mg/dL (8-26); Calcium 8.9 mg/dL (8.6-10.8); Carbon Dioxide 34 mEq/L (19-29); Chloride 94 mEq/L (98-109); Glucose 171 mg/dL (70-99); Osmolality,Calculated 288 (280-300); Potassium 4.6 mEq/L (3.5-4.5); Sodium 135 mEq/L (136-145); eGFR For African Americans > 60 (> 60); eGFR For Non-African Americans > 60 (> 60)
[2016-12-14] MEDS: Acetaminophen 325 MG TABLET PO SCH ×2 (05:56→11:36)
[2016-12-14] MEDS: *HR* OxyCODONE ER (12 HR) 10 MG TABLET PO SCH (05:57)
[2016-12-14 08:27] LABS: Magnesium 1.5 mg/dL (1.6-2.6)
[2016-12-14] MEDS ORDERED: Magnesium Sulfate 2 GM in D5% in Water 100 ML IVPB ONE (08:49)
--- NOTE | 2016-12-14 08:54 | Pulmonology Progress Note ---
Date of Encounter: 12/14/16 Time of Encounter: 08:51 Assessment and Plan (1) Pleural effusion on left Current Visit: Yes Status: Acute Patient with known malignant pleural effusion. Currently he denies severe breathlessness. If the patient worsening of breathlessness then a Pleurx catheter can be placed since the effusion is recurrent and will continue pose an issue for this particular individual. This could be performed as outpatient through pulmonary office. If cultures negative, stop ATB. Please call if questions arise. Scott Morrison [phone] Code(s): J90 - Pleural effusion, not elsewhere classified SNOMED Code(s): 22757044 Subjective Principal diagnosis: Dyspnea, pleural effusion, advanced lung cancer Interval history: The patient denies severe breathlessness at this time. He notes generalized pain and fatigue however reasonably controlled with current medical therapies. The patient does admit to anorexia. Objective PUL Vital signs: Last Vital Signs Temp 98.2 F 12/14/16 07:22 Pulse 109 12/14/16 07:22 Resp 16 12/14/16 07:50 BP 113/75 12/14/16 07:22 Pulse Ox 96 12/14/16 07:50 General appearance: no acute distress Eyes: nonicteric ENT: oropharynx moist Auscultation: left: diminished breath sounds Percussion: left: dull Cardiovascular: regular rate and rhythm Gastrointestinal: normoactive bowel sounds Extremities: no cyanosis Musculoskeletal: no deformities normal mental status, non-focal exam mood appropriate Results - Laboratory Findings CBC and BMP: 12/14/16 04:47 12/14/16 04:47 ABG ABG pH 7.48 pH Units (7.32-7.45) H 12/13/16 11:37 ABG pCO2 48 mmHg (35-45) H 12/13/16 11:37 ABG pO2 79 mmHg (85-104) L 12/13/16 11:37 ABG O2 Saturation 96 % (95-98) 12/13/16 11:37 PT/INR, D-dimer PT 14.8 Seconds (9.4-12.1) H 12/12/16 06:24 Abnormal lab findings: Abnormal lab results WBC 27.5 K/mcL (4.3-11.1) H 12/14/16 04:47 RBC 3.68 M/mcL (4.19-5.50) L 12/14/16 04:47 Hgb 10.3 g/dL (12.9-16.9) L 12/14/16 04:47 Hct 32.9 % (37.5-50.1) L 12/14/16 04:47 MCHC 31.3 g/dL (31.6-35.5) L 12/14/16 04:47 Neutrophils # 15.7 K/mcL (1.6-8.9) H 12/10/16 04:05 Nucleated RBCs/100 WBC 0.1 /100 WBC (0) H 12/06/16 06:04 PT 14.8 Seconds (9.4-12.1) H 12/12/16 06:24 APTT 24.9 Seconds (26.0-36.0) L 11/20/16 00:10 ABG pH 7.48 pH Units (7.32-7.45) H 12/13/16 11:37 ABG pCO2 48 mmHg (35-45) H 12/13/16 11:37 ABG pO2 79 mmHg (85-104) L 12/13/16 11:37 ABG HCO3 35.7 mEQ/L (21-27) H 12/13/16 11:37 ABG Total CO2 37.2 mEq/L (20-26) H 12/13/16 11:37 ABG Base Excess 10.8 mEq/L (-2.0 to 3.0) H 12/13/16 11:37 Sodium 135 mEq/L (136-145) L 12/14/16 04:47 Potassium 4.6 mEq/L (3.5-4.5) H 12/14/16 04:47 Chloride 94 mEq/L (98-109) L 12/14/16 04:47 Carbon Dioxide 34 mEq/L (19-29) H 12/14/16 04:47 BUN/Creatinine Ratio 27 (6-26) H 12/14/16 04:47 Glucose 171 mg/dL (70-99) H 12/14/16 04:47 POC Glucose 97 (58-89) H 12/04/16 11:47 Magnesium 1.5 mg/dL (1.6-2.6) L 12/14/16 04:47 Iron 14 mcg/dL (65-175) L 11/25/16 09:45 % Saturation 10 % (20-55) L 11/25/16 09:45 Transferrin 103 mg/dL (174-364) L 11/25/16 09:45 Alkaline Phosphatase 140 Units/L (38-126) H 12/13/16 05:22 Troponin I 0.05 ng/mL (0-0.03) H* 11/20/16 16:26 Albumin 2.1 g/dL (3.5-5.0) L 12/13/16 05:22 Globulin 4.2 g/dL (2.4-3.5) H 12/13/16 05:22 Albumin/Globulin Ratio 0.5 (1.1-2.2) L 12/13/16 05:22 Amylase 18 Units/L (25-125) L 11/25/16 16:04 Vitamin B12 865 pg/mL (213-816) H 11/25/16 09:45 Procalcitonin 0.87 ng/mL (<=0.10) H 11/25/16 16:04 Pleural Appearance Hazy (Clear) A 12/10/16 16:37 Pleural RBC 0.071 M/mcL (0.000-0.002) H 12/10/16 16:37 Pleural Tot Nuc Cell 2191 TNC/mcL (0-1000) H 12/10/16 16:37 Vancomycin Trough 71.6 mcg/mL (10-20) H* 11/24/16 03:25 - Microbiology Findings Microbiology Findings: Microbiology, Last 48 Hours 12/10/16 16:37 Body Fluid Culture - Final Pleural Fluid - Clinical Findings Intake & Output: Intake & Output 12/13/16 12/14/16 12/14/16 23:59 07:59 15:59 Intake Total 240 / 240 Balance 240 / 240 Weight 67.2 kg Consult Discharge Plan - Plan Referrals: Alexander Cox DO [Non-Partnered Physician] - (TRIED TO CALL AND MAKE AN APPOINTMENT THE OFFICE IS CLOSED ON FRIDAYS. ) Shabana Llamas DO [Primary Care Provider] - (Patient will follow up with cancer physician) Gerardo Kendrick MD [Partnered Physician] - (Patient is getting treatment at cancer center everyday...)
--- NOTE | 2016-12-14 08:54 | Discharge Summary ---
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 Pleural fluid cultures are negative, pulmonology advocates discontinuation of antibiotics. Continue dexaethasone duo nebs, and Mucinex Palliative care following Oncology following Pulmonary following Patient had left thoracentesis with 1400 mL of serosanguineous fluid drained . Pleural fluid analysis revealed an exudative pleural effusion which could be contributing to the leukocytosis with 2191 total nucleated cells. Legionella Culture pending Rad oncology performed radiotherapy 12/11/16. ABG shows Metabolic alkalosis with superimposed respiratory acidosis resolving. No fever or chills. Patient currently breathing okay in no acute distress on room air. Baseline is 2 L of oxygen at home Patient requests going home today and following up outpatient He remains moderate risk duet to the potential for worsening respiratory status. (2) Primary lung cancer with metastasis from lung to other site Priority: Primary Status: Chronic Comments: AJCC clinical stage IV lung cancer status post chemotherapy and SRS to brain metastases, possible mets in liver as well as adrenals Patient reports that he has received one cycle of chemotherapy so far. Oncology to treat with immunotherapy either alone or in combination chemotherapy if his overall condition permits and does not anticipate any issues with immunotherapy based on kidney function. Radiation oncology performed radiation treatment 12/11/16. Gabapentin for neuropathic pain. PT and OT has seen patient and recommends therapy. Patient DNRCC - A. Patient goal is returm home HH services. SS involved in case and working on home set-up. Patient requests going home. Cont to follow up outpatient. Qualifiers: Laterality: left Qualified Code(s): C34.92 - Malignant neoplasm of unspecified part of left bronchus or lung (3) Postobstructive pneumonia Priority: Primary Status: Acute Comments: See above. Discontinue Rocephin (Day 9) as pleural cultures are negative. Continue supplement oxygen daily at bedtime (4) Pleural effusion on left Priority: Primary Status: Acute Comments: Chest x-ray today shows continued complete opacification of the left chest with no evidence of aeration in the left lung. Status post left-sided thoracentesis which revealed an exudative pleural effusion which could be contributing to the leukocytosis. Consider permacath placement if condition declines or SOB symptoms return. Follow-up outpatient with pulmonology (5) Acute kidney injury Status: Acute Comments: Suspect due to multiple factors including sepsis, vancomycin. Renal function improving gradually and nephrology has recommended discharge Oncology does not anticipate any issues with immunotherapy based on kidney function. (6) Metabolic alkalosis with respiratory acidosis Status: Acute Comments: mproving, Rated to acute kidney injury. Discontinued bicarbonate. Continue to monitor (7) Decreased appetite Priority: Primary Status: Acute Comments: Improved. Consider appetite stimulation if necessary, discuss with palliative care. (8) Sepsis Priority: Primary Status: Resolved Comments: Related to gram-negative sepsis secondary to gram-negative pneumonia/ E coli. Infectious disease following. Completed 8 days of Rocephin treatment Qualifiers: Sepsis type: sepsis due to unspecified organism Qualified Code(s): A41.9 - Sepsis, unspecified organism (9) Therapeutic opioid induced constipation Priority: Primary Status: Acute Comments: Patient reports last bowel movement today. Continue laxatives when necessary. (10) Cancer associated pain Priority: Primary Status: Chronic Comments: Patient reports pain level is controlled on oxycodone and probably would require heavy pain medication as outpatient if he has been referred to palliative care. Tylenol scheduled every 6 hours (11) CVA (cerebral vascular accident) Priority: Secondary Status: Chronic Comments: Remote CVA. Qualifiers: CVA mechanism: unspecified Qualified Code(s): I63.9 - Cerebral infarction, unspecified (12) Hypomagnesemia Priority: Primary Status: Acute Comments: Resolving. Supplemental magnesium (13) DVT prophylaxis Status: Acute Comments: Heparin and SCDs Patient seen and examined, case discussed with him and agreed upon with Dr. Stevens - Discharge Medications Prescriptions: Ipratropium/Albuterol Neb [Duoneb] 3 ml IH [id number] #30 inh OxyCODONE ER (12 HR) [OxyCONTIN] 10 mg PO Q12HR PRN #30 tab PRN Reason: Moderate Pain Nebulizer [Aeroeclipse] 1 each MC Q3H PRN #1 each PRN Reason: Dyspnea Nebulizer Accessories [A.i.r.s. Nebulizer] 1 each Q3H PRN #1 kit PRN Reason: Bronchospasm Nicotine Patch [Nicoderm] 21 mg TD DAILY #30 patch.td24 OxyCODONE Immed Rel [Roxicodone 5 MG] 10 mg PO Q2H PRN #30 tab PRN Reason: Severe Pain Home Medications: Buspirone HCl [Buspar] 7.5 mg PO BID 04/21/16 [History] Gabapentin 600 mg PO TID 04/21/16 [History] SUMAtriptan Succinate [Imitrex] 100 mg PO DAILY PRN 04/21/16 [History] lamoTRIgine [Lamictal] 75 mg PO BID 04/21/16 [History] Ipratropium/Albuterol Neb [Duoneb] 3 ml IH Q6HR PRN 07/21/16 [History] Tiotropium [Spiriva] 1 cap IH DAILY 07/21/16 [History] Metoprolol Succinate 100 mg PO DAILY 09/05/16 [History] Albuterol Sulfate [Albuterol Inhaler] 2 puff IH Q6H PRN 09/08/16 [History] Zolpidem [Ambien] 5 mg PO HS 09/14/16 [History] Folic Acid 1 mg PO DAILY #30 tablet 09/28/16 [Rx] Loratadine [Claritin] 10 mg PO AD #60 tablet 09/28/16 [Rx] Omeprazole [PriLOSEC] 20 mg PO DAILY #30 capsule 09/28/16 [Rx] Ondansetron [Zofran] 8 mg PO Q8HR PRN #90 tablet 09/28/16 [Rx] Prochlorperazine Maleate [Compazine] 10 mg PO Q6HR PRN #60 tablet 09/28/16 [Rx] Oxymetazoline [Afrin] 15 spray NS AD PRN #1 bottle 10/06/16 [Rx] diazePAM [Valium] 10 mg PO BID PRN #30 tablet 11/07/16 [Rx] Aspirin 81 mg PO DAILY 11/20/16 [History] OLANZapine [Zyprexa] 2.5 mg PO DAILY 11/20/16 [History] Umeclidinium [place] [Incruse Ellipta] 1 puff IH DAILY 11/20/16 [History] Acetaminophen [Tylenol] 650 mg PO Q6HR tab 12/14/16 [Rx] Bisacodyl [Dulcolax] 5 mg PO DAILY PRN tab 12/14/16 [Rx] Folic Acid 1 mg PO DAILY tab 12/14/16 [Rx] GuaiFENesin/Dextromethorphan [Mucinex Dm] 1 each PO BID 12/14/16 [Rx] Ipratropium/Albuterol Neb [Duoneb] 3 ml IH [id number] #30 inh 12/14/16 [Rx] Magnesium Oxide [Mag-Ox] 400 mg PO BID tab 12/14/16 [Rx] Metoprolol XL (24 HR) Succ [Toprol Xl] 100 mg PO DAILY 12/14/16 [Rx] Nebulizer Accessories [A.i.r.s. Nebulizer] 1 each Q3H PRN #1 kit 12/14/16 [Rx ] Nebulizer [Aeroeclipse] 1 each Q3H PRN #1 each 12/14/16 [Rx] Nicotine Patch [Nicoderm] 21 mg TD DAILY #30 patch.td24 12/14/16 [Rx] OxyCODONE ER (12 HR) [OxyCONTIN] 10 mg PO Q12HR PRN #30 tab 12/14/16 [Rx] OxyCODONE Immed Rel [Roxicodone 5 MG] 10 mg PO Q2H PRN #30 tab 12/14/16 [Rx] Polyethylene Glycol 3350 [MiraLAX] 17 gm PO DAILY 12/14/16 [Rx] Sennosides/Docusate Sodium [Senna Plus] 2 each PO BID tab 12/14/16 [Rx] amLODIPine [Norvasc] 5 mg PO BID tab 12/14/16 [Rx] Allergies/Adverse Reactions: Allergies doxycycline Allergy (Verified 10/22/16 16:08) Rash hydrocodone [From Vicodin] Allergy (Verified 10/22/16 16:08) Rash lidocaine Allergy (Verified 10/22/16 16:08) Rash propoxyphene [From Darvocet-N] Allergy (Verified 10/22/16 16:08) Rash morphine patches Allergy (Intermediate, Uncoded 10/22/16 16:08) Rash Date of admission: 11/20/16 03:29 Primary care physician: Shabana Llamas DO Consults: 11/20/16 03:33 Consult to Bee Tender [CONS] Routine Reason for SW Consult: d/c planning 11/20/16 03:43 Consult to Nurse Navigator [CONS] Routine Comment: 11/20/16 03:47 Consult to Oncology [CONS] Routine Consulting Provider: [facility] Reason for Consult: lung cancer Call Completed: No Consult to Pulmonology [CONS] Routine Consulting Provider: [facility] Reason for Consult: Lung cancer patient needs broncho-question post obstructive pneumonia Call Completed: No 11/25/16 11:20 Consult to Infectious Diseases [CONS] Routine Consulting Provider: [facility] [place] Reason for Consult: please evaluate for persistent fever in this patient being treated for pneumonia with h/o lung cancer. thank you Call Completed: Yes 11/25/16 15:06 Consult to Nephrology [CONS] Routine Consulting Provider: [facility] Reason for Consult: please evaluate for ARMAAN with possible vancomycin induced renal toxicity. thank you Call Completed: Yes 11/27/16 09:02 Consult to Palliative Care [CONS] Routine Comment: Consulting Provider: [facility] [place] Reason for Consult: please evaluate for severe pain in this patient with metastatic lung cancer. Call Completed: Yes 12/03/16 10:13 Consult to Occupational Therapy [CONS] Routine Comment: Evaluate, develop and implement POC Reason for Consult: eval for ecf Consult to Physical Therapy [CONS] Routine Comment: Evaluate, develop and implement POC Reason for Consult: eval for ecf 12/09/16 10:56 Consult to Radiation Oncology [Consult to Oncology Radiation] [CONS] Routine Consulting Provider: Wilfredo Woodall Reason for Consult: Possible ablation of left hilar mass, pulm considering stent placement Time Notified: 10:56 Call Completed: Yes Discharging clinician: Celestine Stevens Anticipated date of discharge: 12/14/16 - Patient Status Disposition: Home Health Service Condition: Critical Functional capacity at discharge: uses cane/walker Overall status at discharge: patient is progressing back to baseline - Discharge Instructions Instructions: Sepsis (DC), Pneumonia (DC) Follow Up With: Shabana Llamas DO [Primary Care Provider] - (Patient will follow up with cancer physician) Gerardo Kendrick MD [Partnered Physician] - (Patient is getting treatment at cancer center everyday...) Alexander Cox DO [Non-Partnered Physician] - (TRIED TO CALL AND MAKE AN APPOINTMENT THE OFFICE IS CLOSED ON FRIDAYS. ) Raheel Cardenas DO [Resident] - (1 week) Additional Instructions: Schedule follow up appointment with PCP/ Dr. Cardenas in 1 week. Schedule follow up appointment with Pulmonology/ Dr. Morrison in 1 week. Schedule follow up appointment with Radiation Oncology/ Dr. Woodall in 1 week. Schedule follow up appointment with Oncology/ Dr. Kendrick in 1 week. Continue breathing treatments as needed. Take pain medication as needed for pain. - Diet and Activity Activity: wear oxygen at all times Diet: advance to your usual diet Hospital course: Mr. Bliss is a 56 year old male - Time Spent with Patient Total time spent providing and/or coordinating discharge services: - Constitutional Vitals: Temp Pulse Resp BP Pulse Ox 98.2 F 109 16 113/75 96 12/14/16 07:22 12/14/16 07:22 12/14/16 07:50 12/14/16 07:22 12/14/16 07:50 General appearance: Present: cachectic, cooperative, A&O X 3, pleasant, underweight, answers questions appropriately - Head Head exam: Present: atraumatic, normocephalic - Eye Eye exam: Present: PERRL, conjuntiva pink, sclera anicteric Pupils: Present: PERRL - ENT ENT exam: Present: mucous membranes moist, normal oropharynx - Neck Neck exam general surgery: Present: supple, trachea midline. Absent: lymphadenopathy - Respiratory Respiratory exam: Present: decreased breath sounds (Left). Absent: accessory muscle use, CTAB, rales, rhonchi, wheezes Additional comments: Dull to percussion on left - Cardiovascular Cardiovascular exam: Present: RRR, +S1, +S2. Absent: diastolic murmur, gallop, rubs, systolic murmur - GI/Abdominal GI/Abdominal exam: Present: normal bowel sounds, soft, no peritoneal signs. Absent: distended, tenderness - Extremities Exam Extremities exam: Present: warm, radial pulses palpable and symetrical. Absent : calf tenderness, cyanotic, pedal edema - Neurological Exam Neurological exam: Present: CN II-XII intact, oriented X3, no focal deficits. Absent: pronater drift, facial droop, speech deficit - Psychiatric Psychiatric exam: Present: normal affect, normal mood - Skin Skin exam: Present: dry, intact <Celestine Stevens - Last Filed: 12/14/16 15:29> Date of Encounter: 12/14/16 - Discharge Diagnosis (1) Acute on chronic respiratory failure with hypoxia and hypercapnia Status: Acute (2) Pneumonia due to gram-negative bacteria Priority: Secondary Status: Resolved (3) Acute kidney injury Priority: Secondary Status: Resolved (4) Pleural effusion on left Status: Acute (5) Essential hypertension Priority: Secondary Status: Chronic (6) GERD (gastroesophageal reflux disease) Priority: Secondary Status: Chronic Qualifiers: Esophagitis presence: esophagitis presence not specified Qualified Code(s) : K21.9 - Gastro-esophageal reflux disease without esophagitis (7) Abdominal pain Priority: Secondary Status: Resolved Qualifiers: Abdominal location: left upper quadrant Qualified Code(s): R10.12 - Left upper quadrant pain (8) Decreased appetite Status: Acute (9) Sepsis Status: Resolved Qualifiers: Sepsis type: sepsis due to unspecified organism Qualified Code(s): A41.9 - Sepsis, unspecified organism (10) Anxiety Priority: Secondary Status: Chronic (11) Cancer associated pain Status: Chronic (12) Therapeutic opioid induced constipation Status: Acute (13) Tobacco abuse Priority: Secondary Status: Chronic Date of admission: 11/20/16 03:29 Primary care physician: Shabana Llamas DO Consults: 11/20/16 03:33 Consult to Bee Tender [CONS] Routine Reason for SW Consult: d/c planning, needs DME, bedside commode, and front wheel rolling walker 11/20/16 03:43 Consult to Nurse Navigator [CONS] Routine Comment: 11/20/16 03:47 Consult to Oncology [CONS] Routine Consulting Provider: [facility] Reason for Consult: lung cancer Call Completed: No Consult to Pulmonology [CONS] Routine Consulting Provider: [facility] Reason for Consult: Lung cancer patient needs broncho-question post obstructive pneumonia Call Completed: No 11/25/16 11:20 Consult to Infectious Diseases [CONS] Routine Consulting Provider: [facility] [place] Reason for Consult: please evaluate for persistent fever in this patient being treated for pneumonia with h/o lung cancer. thank you Call Completed: Yes 11/25/16 15:06 Consult to Nephrology [CONS] Routine Consulting Provider: [facility] Reason for Consult: please evaluate for ARMAAN with possible vancomycin induced renal toxicity. thank you Call Completed: Yes 11/27/16 09:02 Consult to Palliative Care [CONS] Routine Comment: Consulting Provider: [facility] Reason for Consult: please evaluate for severe pain in this patient with metastatic lung cancer. Call Completed: Yes 12/03/16 10:13 Consult to Occupational Therapy [CONS] Routine Comment: Evaluate, develop and implement POC Reason for Consult: eval for ecf Consult to Physical Therapy [CONS] Routine Comment: Evaluate, develop and implement POC Reason for Consult: eval for ecf 12/09/16 10:56 Consult to Radiation Oncology [Consult to Oncology Radiation] [CONS] Routine Consulting Provider: Wilfredo Woodall Reason for Consult: Possible ablation of left hilar mass, pulm considering stent placement Time Notified: 10:56 Call Completed: Yes Hospital course: Mr. Bliss is a 56 year old male - Time Spent with Patient Total time spent providing and/or coordinating discharge services: 39min - Constitutional Vitals: Temp Pulse Resp BP Pulse Ox 98.5 F 105 22 120/79 97 12/14/16 10:35 12/14/16 10:35 12/14/16 11:15 12/14/16 10:35 12/14/16 11:15 - Attending Attestation I examined this patient and my medical decision-making was reviewed with the Resident Physician on 12/14/16. I agree with the documented findings, disposition and treatment plan as described except to the extent set forth below. Mr. Bliss has been admitted for acute hypoxic resp failure and pneumonia as well as large pleural effusion. He is s/p thoracentesis with improvement. He is now afebrile with stable vitals and is receiving radiation treatments. He is currently able to go home. Exam Alert. Comfortable Mucus membranes moist Heart reg Lungs - no wheeze at this time Abd soft No edema Plan D/C home today Outpatient follow up with Dr. Cardenas and oncology. Possible Pleurx if fluid returns. Continued follow up with radiation. Tobacco cessation.
[2016-12-14] MEDS: Nicotine 21 MG PATCH.TD24 TD SCH (09:04)
[2016-12-14] MEDS: amLODIPine 5 MG TABLET PO SCH (09:05)
[2016-12-14] MEDS: Folic Acid 1 MG TABLET PO SCH (09:06)
[2016-12-14] MEDS: Aspirin 81 MG TAB.CHEW PO SCH (09:06)
[2016-12-14] MEDS: Sennosides/Docusate Sodium TABLET PO SCH (09:06)
[2016-12-14] MEDS: Magnesium Oxide 400 MG TABLET PO SCH (09:06)
[2016-12-14] MEDS: Metoprolol XL (24 HR) Succ 50 MG TAB.ER.24H PO SCH (09:06)
[2016-12-14] MEDS: GuaiFENesin/Dextromethorphan TABLET PO SCH (09:07)
[2016-12-14] MEDS: Gabapentin 300 MG CAPSULE PO SCH ×2 (09:07→14:09)
[2016-12-14] MEDS: lamoTRIgine 25 MG TABLET PO SCH (09:07)
[2016-12-14] MEDS: *HR* Heparin 5,000 UNIT/ML VIAL SQ SCH (09:07)
--- NOTE | 2016-12-14 09:58 | Palliative Progress Note ---
Date of Encounter: 12/14/16 Time of Encounter: 11:02 - Assessment and plan (1) Cancer associated pain Current Visit: Yes Status: Chronic Assessment and plan: Mr. Bliss has used 5 doses of oxycodone in the past 24 hours. Interval every 2 hours as needed and continue to monitor. Continue oxyCONTIN 10mg BID upon discharge. Recommend continuing current treatment upon discharge and follow up with the [facility]. (2) Sepsis Current Visit: Yes Status: Resolved Qualifiers: Sepsis type: sepsis due to unspecified organism Qualified Code(s): A41.9 - Sepsis, unspecified organism (3) Acute kidney injury Current Visit: Yes Status: Acute Assessment and plan: Resolved (4) Counseling regarding advanced directives and goals of care Current Visit: Yes Status: Acute Assessment and plan: Mr. Bliss is currently planning to return home with home health services through [facility]. director of casework services following for discharge needs. Will need oncology follow up at some point. Mr. Bliss is interested in continuing antineoplastic treatments. Palliative radiation therapy at the Cancer center on 12/11/16. (5) Therapeutic opioid induced constipation Current Visit: Yes Status: Acute Assessment and plan: Last documented BM was on 12/12/16. Mr. Bliss continues to take the Senna 2 tablets BID, and MiraLax. Continue with daily laxatives upon discharge. (6) Acute on chronic respiratory failure with hypoxia and hypercapnia Current Visit: Yes Status: Acute (7) Decreased appetite Current Visit: Yes Status: Acute Assessment and plan: Meal preferencing. Appetite has improved. (8) Weakness Current Visit: Yes Status: Acute Assessment and plan: Mr. Bliss has been participating in PT/OT during this hospitalization. Due to weakness and balance issues, he will require DME-bedside commode and front wheeled walker- upon discharge. Mr. Bliss will need the front wheeled walker to assist with balance/transfers from bed to BSC. It is imperative that he have a front wheeled walker and BSC. Mr. Bliss is unable to ambulate the distance required to use the bathroom due to his chronic respiratory failure and lung CA. He required the use of the walker for transferring to the BSC due to balance and fatigue. The DME was also recommended by the physical therapist. - Time Spent With Patient Total time spent is greater than 50% in coordination of care (as documented) at patient's floor/unit and/or counseling patient: - Subjective Interval history: Mr. Bliss is lying in bed, anxious to be discharged. Alert and oriented and interactive. Denies pain or difficulty breathing. He is tolerating OxyCONTIN, and has used 5 doses of oxycodone for breakthrough pain over the past 24 hours. - Constitutional Vitals: Abnormal lab results WBC 27.5 K/mcL (4.3-11.1) H 12/14/16 04:47 RBC 3.68 M/mcL (4.19-5.50) L 12/14/16 04:47 Hgb 10.3 g/dL (12.9-16.9) L 12/14/16 04:47 Hct 32.9 % (37.5-50.1) L 12/14/16 04:47 MCHC 31.3 g/dL (31.6-35.5) L 12/14/16 04:47 Neutrophils # 15.7 K/mcL (1.6-8.9) H 12/10/16 04:05 Nucleated RBCs/100 WBC 0.1 /100 WBC (0) H 12/06/16 06:04 PT 14.8 Seconds (9.4-12.1) H 12/12/16 06:24 APTT 24.9 Seconds (26.0-36.0) L 11/20/16 00:10 ABG pH 7.48 pH Units (7.32-7.45) H 12/13/16 11:37 ABG pCO2 48 mmHg (35-45) H 12/13/16 11:37 ABG pO2 79 mmHg (85-104) L 12/13/16 11:37 ABG HCO3 35.7 mEQ/L (21-27) H 12/13/16 11:37 ABG Total CO2 37.2 mEq/L (20-26) H 12/13/16 11:37 ABG Base Excess 10.8 mEq/L (-2.0 to 3.0) H 12/13/16 11:37 Sodium 135 mEq/L (136-145) L 12/14/16 04:47 Potassium 4.6 mEq/L (3.5-4.5) H 12/14/16 04:47 Chloride 94 mEq/L (98-109) L 12/14/16 04:47 Carbon Dioxide 34 mEq/L (19-29) H 12/14/16 04:47 BUN/Creatinine Ratio 27 (6-26) H 12/14/16 04:47 Glucose 171 mg/dL (70-99) H 12/14/16 04:47 POC Glucose 97 (58-89) H 12/04/16 11:47 Magnesium 1.5 mg/dL (1.6-2.6) L 12/14/16 04:47 Iron 14 mcg/dL (65-175) L 11/25/16 09:45 % Saturation 10 % (20-55) L 11/25/16 09:45 Transferrin 103 mg/dL (174-364) L 11/25/16 09:45 Alkaline Phosphatase 140 Units/L (38-126) H 12/13/16 05:22 Troponin I 0.05 ng/mL (0-0.03) H* 11/20/16 16:26 Albumin 2.1 g/dL (3.5-5.0) L 12/13/16 05:22 Globulin 4.2 g/dL (2.4-3.5) H 12/13/16 05:22 Albumin/Globulin Ratio 0.5 (1.1-2.2) L 12/13/16 05:22 Amylase 18 Units/L (25-125) L 11/25/16 16:04 Vitamin B12 865 pg/mL (213-816) H 11/25/16 09:45 Procalcitonin 0.87 ng/mL (<=0.10) H 11/25/16 16:04 Pleural Appearance Hazy (Clear) A 12/10/16 16:37 Pleural RBC 0.071 M/mcL (0.000-0.002) H 12/10/16 16:37 Pleural Tot Nuc Cell 2191 TNC/mcL (0-1000) H 12/10/16 16:37 Vancomycin Trough 71.6 mcg/mL (10-20) H* 11/24/16 03:25 General appearance: Present: cooperative, no acute distress Exam: 56 year old male, currently taking breathing treatment. - ENT ENT exam: Present: mucous membranes moist - Respiratory Respiratory exam: Present: decreased breath sounds. Absent: accessory muscle use, respiratory distress - Cardiovascular Cardiovascular exam: Present: RRR, tachycardia - GI/Abdominal GI/Abdominal exam: Present: soft. Absent: tenderness - Extremities Exam Extremities exam: Present: normal inspection - Neurological Exam Neurological exam: Present: alert, oriented X3, no focal deficits, strengths equal and symetr throughout - Psychiatric Psychiatric exam: Absent: agitated, anxious - Skin Skin exam: Present: dry, warm Palliative Quality Palliative Quality: Screen for Code Status: Yes, Screen for Goals of Care: Yes, Screen for Pain: Yes, If Pain Regimen Started, Initiate Bowel Regimen: Yes, Screen for Nausea/Vomitting: Yes Code Status: 11/20/16 03:31 Resuscitation Status: Active [RES] Routine Comment: Resuscitation Status: Full Code Resuscitation Status: Active [RES] Routine Comment: Resuscitation Status: DNR-Comfort Care-Arrest - Labs CBC & Chem 7: 12/14/16 04:47 12/14/16 04:47 Labs: Laboratory Results - last 24 hr 12/13/16 12/14/16 12/14/16 11:37 04:47 04:47 WBC 27.5 H RBC 3.68 L Hgb 10.3 L Hct 32.9 L MCV 89.4 MCH 28.0 MCHC 31.3 L RDW 13.8 Plt Count 304 MPV 10.1 ABG pH 7.48 H ABG pCO2 48 H ABG pO2 79 L ABG HCO3 35.7 H ABG Total CO2 37.2 H ABG O2 Saturation 96 ABG Base Excess 10.8 H Liter Flow 3 Blood Gas Modality NC Inspired O2 32 Sodium 135 L Potassium 4.6 H Chloride 94 L Carbon Dioxide 34 H BUN 24 Creatinine 0.88 Est GFR ( Amer) > 60 Est GFR (Non-Af Amer) > 60 BUN/Creatinine Ratio 27 H Glucose 171 H Calculated Osmolality 288 Calcium 8.9 Magnesium 1.5 L - Impressions Impressions Chest X-Ray 12/14/16 04:00 IMPRESSION: Continued complete opacification of the left chest with no evidence of aeration in the left lung. D/ / 12/14/2016 08:47:33 Vesta Stevens MD / [email or web address] Interpreting Provider: Vesta Stevens MD - ABG Interpretation ABG results: ABG ABG pH 7.48 pH Units (7.32-7.45) H 12/13/16 11:37 ABG pCO2 48 mmHg (35-45) H 12/13/16 11:37 ABG pO2 79 mmHg (85-104) L 12/13/16 11:37 ABG O2 Saturation 96 % (95-98) 12/13/16 11:37 PT/INR, D-dimer PT 14.8 Seconds (9.4-12.1) H 12/12/16 06:24 Consult Discharge Plan - Plan Instructions: Sepsis (DC), Pneumonia (DC) Referrals: Alexander Cox DO [Non-Partnered Physician] - (TRIED TO CALL AND MAKE AN APPOINTMENT THE OFFICE IS CLOSED ON FRIDAYS. ) Shabana Llamas DO [Primary Care Provider] - (Patient will follow up with cancer physician) Gerardo Kendrick MD [Partnered Physician] - (Patient is getting treatment at cancer center everyday...) Prescriptions: Ipratropium/Albuterol Neb [Duoneb] 3 ml IH [id number] #30 inh OxyCODONE ER (12 HR) [OxyCONTIN] 10 mg PO Q12HR PRN #30 tab PRN Reason: Moderate Pain Nebulizer [Aeroeclipse] 1 each MC Q3H PRN #1 each PRN Reason: Dyspnea Nebulizer Accessories [A.i.r.s. Nebulizer] 1 each MC Q3H PRN #1 kit PRN Reason: Bronchospasm OxyCODONE Immed Rel [Roxicodone 5 MG] 10 mg PO Q2H PRN #30 tab PRN Reason: Severe Pain
[2016-12-14 10:50] VITALS: BP 120/79
--- NOTE | 2016-12-14 10:56 | Physician Discharge Referral ---
<Bola Paul - Last Filed: 12/14/16 10:54> Home Health/Hosp Referral Info Transfer to: Home Health Attending Provider: Celestine Stevens Provider in Charge Post Discharge: PCP - Diagnosis (1) Acute on chronic respiratory failure with hypoxia and hypercapnia Priority: Primary Status: Acute (2) Primary lung cancer with metastasis from lung to other site Priority: Primary Status: Chronic (3) Postobstructive pneumonia Priority: Primary Status: Acute (4) Pleural effusion on left Priority: Primary Status: Acute (5) Acute kidney injury Priority: Primary Status: Acute (6) Metabolic alkalosis with respiratory acidosis Priority: Primary Status: Acute (7) Decreased appetite Priority: Primary Status: Acute (8) Sepsis Priority: Primary Status: Resolved (9) Therapeutic opioid induced constipation Priority: Primary Status: Acute (10) Cancer associated pain Priority: Primary Status: Chronic (11) CVA (cerebral vascular accident) Priority: Secondary Status: Chronic (12) Hypomagnesemia Priority: Primary Status: Acute (13) DVT prophylaxis Priority: Primary Status: Acute - Respiratory Orders Other (On 2L home Oxygen at night) Smoking Cessation: Smoking cessation has been advised. For more information, call the [place] Tobacco Quit Line at 5-854-RUKF-NOW. - Diet/Nutrition Diet/Nutrition Orders: Regular - Activity Activity Orders: Walker - Services Needed Following services are medically necessary services: Nursing, Home Health Aide, Physical Therapy, Occupational Therapy - Transfer Medications Prescriptions: Ipratropium/Albuterol Neb [Duoneb] 3 ml IH [id number] #30 inh OxyCODONE ER (12 HR) [OxyCONTIN] 10 mg PO Q12HR PRN #30 tab PRN Reason: Moderate Pain Nebulizer [Aeroeclipse] 1 each MC Q3H PRN #1 each PRN Reason: Dyspnea Nebulizer Accessories [A.i.r.s. Nebulizer] 1 each MC Q3H PRN #1 kit PRN Reason: Bronchospasm Nicotine Patch [Nicoderm] 21 mg TD DAILY #30 patch.td24 OxyCODONE Immed Rel [Roxicodone 5 MG] 10 mg PO Q2H PRN #30 tab PRN Reason: Severe Pain Home Medications: Buspirone HCl [Buspar] 7.5 mg PO BID 04/21/16 [History] Gabapentin 600 mg PO TID 04/21/16 [History] SUMAtriptan Succinate [Imitrex] 100 mg PO DAILY PRN 04/21/16 [History] lamoTRIgine [Lamictal] 75 mg PO BID 04/21/16 [History] Ipratropium/Albuterol Neb [Duoneb] 3 ml IH Q6HR PRN 07/21/16 [History] Tiotropium [Spiriva] 1 cap IH DAILY 07/21/16 [History] Metoprolol Succinate 100 mg PO DAILY 09/05/16 [History] Albuterol Sulfate [Albuterol Inhaler] 2 puff IH Q6H PRN 09/08/16 [History] Zolpidem [Ambien] 5 mg PO HS 09/14/16 [History] Folic Acid 1 mg PO DAILY #30 tablet 09/28/16 [Rx] Loratadine [Claritin] 10 mg PO AD #60 tablet 09/28/16 [Rx] Omeprazole [PriLOSEC] 20 mg PO DAILY #30 capsule 09/28/16 [Rx] Ondansetron [Zofran] 8 mg PO Q8HR PRN #90 tablet 09/28/16 [Rx] Prochlorperazine Maleate [Compazine] 10 mg PO Q6HR PRN #60 tablet 09/28/16 [Rx] Oxymetazoline [Afrin] 15 spray NS AD PRN #1 bottle 10/06/16 [Rx] diazePAM [Valium] 10 mg PO BID PRN #30 tablet 11/07/16 [Rx] Aspirin 81 mg PO DAILY 11/20/16 [History] OLANZapine [Zyprexa] 2.5 mg PO DAILY 11/20/16 [History] Umeclidinium [place] [Incruse Ellipta] 1 puff IH DAILY 11/20/16 [History] Acetaminophen [Tylenol] 650 mg PO Q6HR tab 12/14/16 [Rx] Bisacodyl [Dulcolax] 5 mg PO DAILY PRN tab 12/14/16 [Rx] Folic Acid 1 mg PO DAILY tab 12/14/16 [Rx] GuaiFENesin/Dextromethorphan [Mucinex Dm] 1 each PO BID 12/14/16 [Rx] Ipratropium/Albuterol Neb [Duoneb] 3 ml IH [id number] #30 inh 12/14/16 [Rx] Magnesium Oxide [Mag-Ox] 400 mg PO BID tab 12/14/16 [Rx] Metoprolol XL (24 HR) Succ [Toprol Xl] 100 mg PO DAILY 12/14/16 [Rx] Nebulizer Accessories [A.i.r.s. Nebulizer] 1 each MC Q3H PRN #1 kit 12/14/16 [Rx ] Nebulizer [Aeroeclipse] 1 each MC Q3H PRN #1 each 12/14/16 [Rx] Nicotine Patch [Nicoderm] 21 mg TD DAILY #30 patch.td24 12/14/16 [Rx] OxyCODONE ER (12 HR) [OxyCONTIN] 10 mg PO Q12HR PRN #30 tab 12/14/16 [Rx] OxyCODONE Immed Rel [Roxicodone 5 MG] 10 mg PO Q2H PRN #30 tab 12/14/16 [Rx] Polyethylene Glycol 3350 [MiraLAX] 17 gm PO DAILY 12/14/16 [Rx] Sennosides/Docusate Sodium [Senna Plus] 2 each PO BID tab 12/14/16 [Rx] amLODIPine [Norvasc] 5 mg PO BID tab 12/14/16 [Rx] Allergies/Adverse Reactions: Allergies doxycycline Allergy (Verified 10/22/16 16:08) Rash hydrocodone [From Vicodin] Allergy (Verified 10/22/16 16:08) Rash lidocaine Allergy (Verified 10/22/16 16:08) Rash propoxyphene [From Darvocet-N] Allergy (Verified 10/22/16 16:08) Rash morphine patches Allergy (Intermediate, Uncoded 10/22/16 16:08) Rash Certification: Further, I certify that my clinical findings support that this patient is homebound (i.e. absences from home require considerable and taxing effort and are for medical reasons or anabaptist services or infrequently or short duration when for other reasons) because: Homebound Reason: Patient requires assistance of a person or device to safely leave home, Leaving home requires considerable and taxing effort due to condition Attestation: My signature below is to certify that this patient is under my care and that I, or nurse practitioner, or a physician's shipping and receiving assistant working with me, has a face-to -face encounter with this patient. <Celestine Stevens - Last Filed: 12/14/16 15:06> - Diagnosis (1) Acute on chronic respiratory failure with hypoxia and hypercapnia Status: Acute (2) Pneumonia due to gram-negative bacteria Status: Acute (3) Acute kidney injury Status: Acute (4) Pleural effusion on left Status: Acute (5) Essential hypertension Status: Chronic (6) GERD (gastroesophageal reflux disease) Status: Chronic (7) Abdominal pain Status: Acute (8) Decreased appetite Status: Acute (9) Sepsis Status: Resolved (10) Anxiety Status: Chronic (11) Cancer associated pain Status: Chronic (12) Therapeutic opioid induced constipation Status: Acute (13) Tobacco abuse Status: Chronic - Respiratory Orders Smoking Cessation: Smoking cessation has been advised. For more information, call the [place] Tobacco Quit Line at 0-874-AFUANOW. Certification: Further, I certify that my clinical findings support that this patient is homebound (i.e. absences from home require considerable and taxing effort and are for medical reasons or anabaptist services or infrequently or short duration when for other reasons) because: Attestation: My signature below is to certify that this patient is under my care and that I, or nurse practitioner, or a physician's shipping and receiving assistant working with me, has a face-to -face encounter with this patient.
--- NOTE | 2016-12-14 13:27 | Infectious Disease Progress No ---
Date of Encounter: 12/14/16 Time of Encounter: 13:20 - Assessment and Plan (1) Sepsis Current Visit: Yes Status: Resolved The patient had three SIRS criteria on admission (leukocytosis, tachycardia, and fever) on admission. He continues to have tachycardia, but has been afebrile. His WBC remains elevated. Sepsis originally secondary to post-obstructive PNA. High index of suspicion that persistent leukocytosis due to worsening/persistent PNA. The patient is on decadron, which could be contributing to the leukocytosis as well. Blood cultures drawn 11/20/16 x 2 sets, 11/23/16 x 2 sets, and 11/25/16 x 2 sets are negative. Repeat blood cultures x 3 sets drawn 12/02/16 are negative as well. Qualifiers: Sepsis type: sepsis due to unspecified organism Qualified Code(s): A41.9 - Sepsis, unspecified organism (2) Pneumonia Current Visit: Yes Status: Acute Causative organism E. coli. Likely post-obstructive due to large lung mass. CT of the chest 11/25/16 shows unchanged mass-like opacity in the left hilar region with superimposed left upper lobe consolidation. 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 Repeat CT scan of the chest 12/02/16 shows that the left hilar mass appears slightly larger than on the previous study. According to the radiologist, this causes obstruction of the left upper lobe bronchus and narrowing of the lingular bronchus. Airspace disease in the left upper lobe and lingula most likely represent postobstructive pneumonia. There is also increased interstitial markings in the left upper lobe and lingula and to a lesser degree of the left lower lobe likely representing lymphangitic tumor infiltration or hilar lymph node obstruction. Status post bronch 12/04/16. Endo report reviewed. BAL culture grew E. coli. Consider aspiration as well. Speech therapy note reviewed. No formal swallow evaluation completed. Repeat CXR shows interval worsening in the opacification of the left hemithorax with re-demonstration of the patient's known left upper lobe mass with suspected worsened volume loss of the left upper lobe. The patient's lung mass is likely contributing to the persistent/worsening PNA and without decreasing the tumor size, it is unlikely that the PNA will resolve. Repeat CXR again shows opacification of the entire left lung with no aeration of the left lung. Pulmonology consulted and following. Patient not a candidate for bronchial stenting due to high risk for bleeding. Pulmonology has advocated for discontinuance of the patient's antibiotics. Radiation Oncology consulted. Radiation therapy started last week to help decrease the size of the mass. The primary team plans to discharge the patient home later today on no antibiotics. Overall prognosis poor given the patient's large tumor size and persistent pneumonia. No further recommendations from the ID team. Will sign off. Please re-consult if needed. Qualifiers: Pneumonia type: due to unspecified organism Laterality: left Lung location: upper lobe of lung Qualified Code(s): J18.1 - Lobar pneumonia, unspecified organism (3) Acute kidney injury Current Visit: Yes Status: Acute Likely secondary to vanc toxicity. Serum creatinine continues to improve. Continue to trend. Avoid nephrotoxins as able and dose-adjust antibiotics. (4) Vancomycin poisoning Current Visit: Yes Status: Resolved Qualifiers: Encounter type: initial encounter Injury intent: accidental or unintentional Qualified Code(s): T36.8X1A - Poisoning by other systemic antibiotics, accidental (unintentional), initial encounter (5) Abdominal pain Current Visit: Yes Status: Acute Etiology not clear. KUB does not show obstruction or ileus. CT abdomen without acute infectious process x 2. Pain management per the primary and palliative care teams. Qualifiers: Abdominal location: left upper quadrant Qualified Code(s): R10.12 - Left upper quadrant pain (6) CVA (cerebral vascular accident) Current Visit: No Status: Chronic Qualifiers: CVA mechanism: unspecified Qualified Code(s): I63.9 - Cerebral infarction, unspecified (7) Lung cancer Current Visit: Yes Status: Chronic Diagnosed 3 months ago. First chemotherapy session was about 09/24/16. Appears to be getting worse with metastases. Hem/Onc following. Referred to radiation oncology. Radiation therapy started last week with possible immunotherapy/chemotherapy once the patient's infection resolves. Palliative care has been consulted. Code status discussed and noted. Qualifiers: Laterality: left Lung location: unspecified part of lung Qualified Code(s ): C34.92 - Malignant neoplasm of unspecified part of left bronchus or lung (8) Cancer associated pain Current Visit: Yes Status: Chronic Palliative care consulted. (9) Pleural effusion on left Current Visit: Yes Status: Acute Status post therapeutic thoracentesis 12/10/16 by the pulmonology team. 1400ml serosanguinous drainage removed. Cell count reviewed --> appears exudative. Cultures negative. Likely secondary to malignancy. Pathology pending. Continue antibiotics as above. - Subjective Interval history: Patient seen and examined. Weekend notes reviewed. No acute events noted overnight. Patient lying in bed with nursing at the bedside. States he is going home today. States that overall he feels okay today. Denies fevers or chills. Denies chest pain. States his shortness of breath is better and he no longer has a cough. Continues to complain of diffuse abdominal pain, but states it is better today. Last BM was this morning. He states his appetite is a little better and he ate some breakfast this morning. He denies nausea, vomiting, or diarrhea. He denies urinary complaints. He denies oral thrush or skin lesions. Infect Dis PN-Objective Data - Labs CBC & Chem 7: 12/14/16 04:47 12/14/16 04:47 Labs: Laboratory Results - last 24 hr 12/14/16 12/14/16 04:47 04:47 WBC 27.5 H RBC 3.68 L Hgb 10.3 L Hct 32.9 L MCV 89.4 MCH 28.0 MCHC 31.3 L RDW 13.8 Plt Count 304 MPV 10.1 Sodium 135 L Potassium 4.6 H Chloride 94 L Carbon Dioxide 34 H BUN 24 Creatinine 0.88 Est GFR ( Amer) > 60 Est GFR (Non-Af Amer) > 60 BUN/Creatinine Ratio 27 H Glucose 171 H Calculated Osmolality 288 Calcium 8.9 Magnesium 1.5 L Cultures: Cultures 12/10/16 16:37 Body Fluid Culture - Final Pleural Fluid 12/04/16 14:26 Legionella Culture - Final Left Upper Lobe Lung 12/02/16 16:04 Blood Culture - Final Peripheral Venipuncture No growth. 12/02/16 16:04 Blood Culture - Final Peripheral Venipuncture No growth. 12/04/16 14:26 Respiratory Culture - Final Left Upper Lobe Lung Escherichia coli 12/04/16 14:26 Acid Fast Stain - Final Left Upper Lobe Lung 12/03/16 08:00 Sputum Culture - Final Sputum Escherichia coli 12/04/16 14:26 Gram Stain - Final Left Upper Lobe Lung 11/25/16 17:06 Blood Culture - Final Peripheral Venipuncture No growth. 11/25/16 17:06 Blood Culture - Final Peripheral Venipuncture No growth. 11/23/16 08:30 Blood Culture - Final Peripheral Venipuncture No growth. 11/23/16 08:39 Blood Culture - Final Peripheral Venipuncture No growth. 11/25/16 19:05 Legionella Antigen - Final Urine,Clean Catch 11/20/16 15:00 Sputum Culture - Final Sputum Serology 12/10/16 12/04/16 12/04/16 Range/Units 16:37 14:26 14:26 Fluid Source [place] left upper lobe Fluid Volume 20 mL Fluid Appearance Clear (Clear) Fluid RBC TNP Fld Tot Nucleated Cell TNP Fluid Seg Neutrophil % 92.0 % Fluid Lymphocytes % 5.0 % Fluid Other Cells % 3.0 % Pleural Fluid Volume 1300.0 mL Pleural Appearance Hazy A (Clear) Pleural pH 7.53 (No Ref Range) pH Units Pleural RBC 0.071 H (0.000 - 0.002) M/mcL Pleural Tot Nuc Cell 2191 H (0-1000) TNC/mcL Pleural Neutrophils 72.0 % Pleural Band Neuts Test Not Performed Pleural Eosinophils Test Not Performed Pleural Basophils Test Not Performed Pleural Lymphocytes % 6.0 % Pleural Monocytes % Test Not Performed Pleural Other Cells % 22.0 % Pleural Total Protein 3.3 (No Ref Range) g/dL Pleural Albumin 1.4 (No Ref Range) g/dL Pleural LDH 559 (No Ref Range) Units/L Pleural Glucose 222 (No Ref Range) mg/dL Pleural Amylase 18 (No Ref Range) Units/L Pleural Cholesterol 72 (No Ref Range) mg/dL Pleural Triglycerides 53 (No Ref Range) mg/dL Chlamy pneumoniae PCR (Not Detect) Adenovirus (PCR) (Not Detect) B. pertussis DNA (PCR) (Not Detect) Coronavirus OC43 (PCR) (Not Detect) Coronavirus HKU1 (PCR) (Not Detect) Coronavirus 229E (PCR) (Not Detect) Coronavirus NL63 (PCR) (Not Detect) Herpes Simplex Source [place] Herpes Simplex DNA PCR NOT DETECTED Human Metapneumovir PCR (Not Detect) Influenza A (H1) PCR (Not Detect) Influ A (H1N1/09) PCR (Not Detect) Influenza A (H3) PCR (Not Detect) Influenza Type A (PCR) NOT DETECTED Influenza A Untype (PCR) (Not Detect) Influenza Type B (PCR) NOT DETECTED (Not Detect) M.pneumoniae DNA (PCR) (Not Detect) Parainfluenza 1 (PCR) (Not Detect) Parainfluenza 2 (PCR) (Not Detect) Parainfluenza 3 (PCR) (Not Detect) Parainfluenza 4 (PCR) (Not Detect) RSV (PCR) NOT DETECTED (Not Detect) Entero/Rhino (PCR) (Not Detect) 11/25/16 Range/Units 11:30 Fluid Source Fluid Volume mL Fluid Appearance (Clear) Fluid RBC Fld Tot Nucleated Cell Fluid Seg Neutrophil % % Fluid Lymphocytes % % Fluid Other Cells % % Pleural Fluid Volume mL Pleural Appearance (Clear) Pleural pH (No Ref Range) pH Units Pleural RBC (0.000 - 0.002) M/mcL Pleural Tot Nuc Cell (0-1000) TNC/mcL Pleural Neutrophils % Pleural Band Neuts Pleural Eosinophils Pleural Basophils Pleural Lymphocytes % % Pleural Monocytes % Pleural Other Cells % % Pleural Total Protein (No Ref Range) g/dL Pleural Albumin (No Ref Range) g/dL Pleural LDH (No Ref Range) Units/L Pleural Glucose (No Ref Range) mg/dL Pleural Amylase (No Ref Range) Units/L Pleural Cholesterol (No Ref Range) mg/dL Pleural Triglycerides (No Ref Range) mg/dL Chlamy pneumoniae PCR Not Detected (Not Detect) Adenovirus (PCR) Not Detected (Not Detect) B. pertussis DNA (PCR) Not Detected (Not Detect) Coronavirus OC43 (PCR) Not Detected (Not Detect) Coronavirus HKU1 (PCR) Not Detected (Not Detect) Coronavirus 229E (PCR) Not Detected (Not Detect) Coronavirus NL63 (PCR) Not Detected (Not Detect) Herpes Simplex Source Herpes Simplex DNA PCR Human Metapneumovir PCR Not Detected (Not Detect) Influenza A (H1) PCR Not Detected (Not Detect) Influ A (H1N1/09) PCR Not Detected (Not Detect) Influenza A (H3) PCR Not Detected (Not Detect) Influenza Type A (PCR) Influenza A Untype (PCR) Not Detected (Not Detect) Influenza Type B (PCR) Not Detected (Not Detect) M.pneumoniae DNA (PCR) Not Detected (Not Detect) Parainfluenza 1 (PCR) Not Detected (Not Detect) Parainfluenza 2 (PCR) Not Detected (Not Detect) Parainfluenza 3 (PCR) Not Detected (Not Detect) Parainfluenza 4 (PCR) Not Detected (Not Detect) RSV (PCR) Not Detected (Not Detect) Entero/Rhino (PCR) Not Detected (Not Detect) - Impressions Impressions Chest X-Ray 12/14/16 04:00 IMPRESSION: Continued complete opacification of the left chest with no evidence of aeration in the left lung. D/ / 12/14/2016 08:47:33 Vesta Stevens MD / penny Interpreting Provider: Vesta Stevens MD Exam - Constitutional Vitals: Temp Pulse Resp BP Pulse Ox 98.5 F 105 22 120/79 97 12/14/16 10:35 12/14/16 10:35 12/14/16 11:15 12/14/16 10:35 12/14/16 11:15 General appearance: cooperative, no acute distress, thin - Head Head exam: Present: atraumatic, normal inspection, normocephalic - Eye Eye exam: Present: EOMI, normal appearance, PERRL Pupils: Present: normal accommodation - ENT ENT exam: Present: mucous membranes moist - Neck Neck exam: Present: normal inspection - Respiratory Respiratory exam: Present: decreased breath sounds (left upper and left lower lobes), CTAB (right upper, middle, lower lobes). Absent: rales, respiratory distress, wheezes - Cardiovascular Cardiovascular exam: Present: +S1, +S2, tachycardia. Absent: irregular rhythm - GI/Abdominal GI/Abdominal exam: Present: normal bowel sounds, soft, tenderness (generalized) . Absent: distended - Extremities Exam Extremities exam: Present: normal inspection. Absent: joint swelling, pedal edema, tenderness - Neurological Exam Neurological exam: Present: alert, oriented X3, no focal deficits - Psychiatric Psychiatric exam: Present: normal affect, normal mood - Skin Skin exam: Present: dry, intact, normal color, warm - Additional findings Additional findings: A-port noted to the right upper chest, currently accessed with Ragland needle. Transparent dressing C/D/I. Consult Discharge Plan - Plan Instructions: Sepsis (DC), Pneumonia (DC) Referrals: Alexander Cox DO [Non-Partnered Physician] - (TRIED TO CALL AND MAKE AN APPOINTMENT THE OFFICE IS CLOSED ON FRIDAYS. ) Shabana Llamas DO [Primary Care Provider] - (Patient will follow up with cancer physician) Gerardo Kendrick MD [Partnered Physician] - (Patient is getting treatment at cancer center everyday...) Prescriptions: Ipratropium/Albuterol Neb [Duoneb] 3 ml IH [id number] #30 inh OxyCODONE ER (12 HR) [OxyCONTIN] 10 mg PO Q12HR PRN #30 tab PRN Reason: Moderate Pain Nebulizer [Aeroeclipse] 1 each MC Q3H PRN #1 each PRN Reason: Dyspnea Nebulizer Accessories [A.i.r.s. Nebulizer] 1 each MC Q3H PRN #1 kit PRN Reason: Bronchospasm OxyCODONE Immed Rel [Roxicodone 5 MG] 10 mg PO Q2H PRN #30 tab PRN Reason: Severe Pain
== END 2016-12-14 16:22 | disposition home health service (06) | DRG 720 ==
LOC: EMEROO 22:25 → SUATTDRO 11-20 03:29 → ICNU 11-20 03:29 → 2NNU 11-20 18:45 → 2ANU 12-05 17:42
PROVIDERS: ADMIT Family Medicine; ATTEND Internal Medicine

== ENCOUNTER 2016-12-15 11:29 | Inpatient (IN) ==
[2016-12-15] MEDS ORDERED: 0.9 % Sodium Chloride 1,000 ML IVC ONE ×2 (11:53→16:08)
[2016-12-15 13:18] LABS: Hematocrit 30.2 % (37.5-50.1); Hemoglobin 9.5 g/dL (12.9-16.9); Mean Corpuscular HGB Conc 31.5 g/dL (31.6-35.5); Mean Corpuscular Hemoglobin 28.1 pg (28.0-33.3); Mean Corpuscular Volume 89.3 fL (83.0-100.0); Mean Platelet Volume 10.3 fL (9.4-12.4); Platelet Count 288 K/mcL (140-400); Red Blood Count 3.38 M/mcL (4.19-5.50); Red Cell Distribution Width 14.3 % (11.5-14.5)
--- NOTE | 2016-12-15 13:21 | Emergency Department Note ---
Disposition Clinical Impression: Mucus plugging of bronchi, Intractable generalized abdominal pain, Dehydration Dyspnea Qualifiers: Dyspnea type: shortness of breath Qualified Code(s): R06.02 - Shortness of breath Lung cancer Qualifiers: Laterality: left Lung location: hilum of lung Qualified Code(s): C34.02 - Malignant neoplasm of left main bronchus Disposition: Admitted As Inpatient Condition: Fair Time of Disposition: 16:18 SOB HPI - General Chief Complaint: ED Shortness of Breath/Dyspnea Stated Complaint: SOB/ABDOMINAL PAIN Time Seen by Provider: 12/15/16 11:44 Source: patient, family Limitations: no limitations Nursing Notes Reviewed: Yes Vital Signs Reviewed: Yes - History of Present Illness 48-year-old male presents ED because of dyspnea, abdominal pain, poor oral intake and generalized weakness. He has a history of metastatic lung carcinoma. This involves mostly his left lung with recent prolonged admission to the hospital for pneumonia and recurrent pleural effusions. He has no stasis to his abdomen as well. He was discharged from hospital yesterday but has since had no oral intake and has progression of dyspnea and coughing. No fever. Denies any chest pain but does have ongoing abdominal pain. No urinary symptoms. No diarrhea. Pt Subjective Complaint: shortness of breath, cough Onset (ago): hour(s) Severity: moderate Consistency/Duration: constant Improves with: nothing Worsens with: nothing Known history of: COPD Associated symptoms: Reports: abdominal pain Treatment prior to arrival: none Cough present: Yes Cough Frequency: Continuous Sputum production: No Sputum Amount: None - Related Data Home Medications Medication Instructions Recorded Confirmed Buspirone HCl [Buspar] 7.5 mg PO BID 04/21/16 12/15/16 Gabapentin 600 mg PO TID 04/21/16 12/15/16 SUMAtriptan Succinate [Imitrex] 100 mg PO DAILY PRN 04/21/16 12/15/16 lamoTRIgine [Lamictal] 75 mg PO BID 04/21/16 12/15/16 Ipratropium/Albuterol Neb [Duoneb] 3 ml IH Q6HR PRN 07/21/16 12/15/16 Tiotropium [Spiriva] 18 mcg IH DAILY 07/21/16 12/15/16 Metoprolol Succinate 100 mg PO DAILY 09/05/16 12/15/16 Albuterol Sulfate [Albuterol 2 puff IH Q6H PRN 09/08/16 12/15/16 Inhaler] Zolpidem [Ambien] 5 mg PO HS 09/14/16 12/15/16 Aspirin 81 mg PO DAILY 11/20/16 12/15/16 OLANZapine [Zyprexa] 2.5 mg PO DAILY 11/20/16 12/15/16 Umeclidinium [place] [Incruse 62.5 mcg IH DAILY 11/20/16 12/15/16 Ellipta] Previous Rx's Medication Instructions Recorded Folic Acid 1 mg PO DAILY #30 tablet 09/28/16 Loratadine [Claritin] 10 mg PO AD #60 tablet 09/28/16 Omeprazole [PriLOSEC] 20 mg PO DAILY #30 capsule 09/28/16 Ondansetron [Zofran] 8 mg PO Q8HR PRN #90 tablet 09/28/16 Prochlorperazine Maleate 10 mg PO Q6HR PRN #60 tablet 09/28/16 [Compazine] Oxymetazoline [Afrin] 15 spray NS AD PRN #1 bottle 10/06/16 diazePAM [Valium] 10 mg PO BID PRN #30 tablet 11/07/16 Acetaminophen [Tylenol] 650 mg PO Q6HR tab 12/14/16 Bisacodyl [Dulcolax] 5 mg PO DAILY PRN tab 12/14/16 GuaiFENesin/Dextromethorphan 1 each PO BID 12/14/16 [Mucinex Dm] Ipratropium/Albuterol Neb [Duoneb] 3 ml IH [id number] #30 inh 12/14/16 Magnesium Oxide [Mag-Ox] 400 mg PO BID tab 12/14/16 Nicotine Patch [Nicoderm] 21 mg TD DAILY #30 patch.td24 12/14/16 OxyCODONE ER (12 HR) [OxyCONTIN] 10 mg PO Q12HR PRN #30 tab 12/14/16 OxyCODONE Immed Rel [Roxicodone 5 10 mg PO Q2H PRN #30 tab 12/14/16 MG] Polyethylene Glycol 3350 [MiraLAX] 17 gm PO DAILY 12/14/16 Sennosides/Docusate Sodium [Senna 2 each PO BID tab 07/17/17 Plus] amLODIPine [Norvasc] 5 mg PO BID tab 12/14/16 Allergies Allergy/AdvReac Type Severity Reaction Status Date / Time doxycycline Allergy Rash Verified 10/22/16 16:08 hydrocodone [From Vicodin] Allergy Rash Verified 10/22/16 16:08 lidocaine Allergy Rash Verified 10/22/16 16:08 propoxyphene Allergy Rash Verified 10/22/16 16:08 [From Darvocet-N] morphine patches Allergy Intermediate Rash Uncoded 10/22/16 16:08 All systems ED: reviewed and negative except as stated. Constitutional: Denies: fever, chills Eyes: Denies: eye pain Cardiovascular: Denies: chest pain Respiratory: Reports: cough, dyspnea Gastrointestinal: Reports: abdominal pain Genitourinary: Denies: urgency, dysuria, frequency Musculoskeletal: Denies: back pain, neck pain Neurological: Denies: headache Past Medical History - Past Medical History Attestation: Yes The following information was validated with the patient. Medical history: Reports: arthritis, cancer, CHF, COPD, CVA, DVT, hyperlipidemia , hypertension, other Surgical history: Reports: herniorrhaphy, orthopedic, other (left shoulder, ) Psychiatric history: Reports: anxiety, depression - Social History Smoking Status: Current some day smoker Smokeless Tobacco Status: No Alcohol use: Reports: none Drug use: Reports: marijuana Physical Exam - General Limitations: no limitations General appearance: alert - Head Head exam: atraumatic, normocephalic - Eye Eye exam: Present: normal appearance - ENT ENT exam: mucous membranes dry - Neck Neck exam: Present: normal inspection - Chest Chest inspection: Present: normal inspection - Respiratory Respiratory exam: Absent: normal lung sounds bilaterally - Cardiovascular Cardiovascular exam: Present: tachycardia - Abdominal Exam Abdominal exam: Present: tenderness, normal bowel sounds Abdominal tenderness: Present: diffuse, moderate - Expanded Lower Extremity Exam Hip/Pelvis exam: Absent: swelling Lower leg exam: Absent: swelling Neurovascular/Tendon exam: Present: normal capillary refill - Back Exam Back exam: Present: normal inspection. Absent: CVA tenderness (R), CVA tenderness (L) - Neurological Exam Neurological exam: Present: alert, oriented X3 - Psychiatric Psychiatric exam: Present: normal affect, normal mood - Skin Skin exam: Present: warm, dry Course - Reevaluation(s) Reevaluation #1: Patient had limited peripheral IV access and was unable to acquire labs. For this reason a right femoral central line was placed for better access, potential need for contrast injection as well as lab access. Time: 13:20 Reevaluation #2: Heart rate has improved after IV fluids and pain control. He has multiple issues and the source of his abdominal pain is likely multifactorial. He is going to put him presentation. He also has multiple metacyesis to the abdominal cavity including adrenal glands. The left lung mass is enlarging and has increasing pleural effusion as well as compressive atelectasis. Leukocytosis is also worsened; white count 27,000 yesterday, 30,000 today. Family thinks he may received Neupogen in the last hospitalization but not yet able to clarify this. We will cover with broad-spectrum [place]. He remains afebrile. Lactate is normal. Renal function is normal. CT of the chest negative for pulmonary embolus. Patient remains a full CODE STATUS and will be admitted. Discussed with Dr. Cantu to admit Time: 17:49 Vital Signs Temperature 98.9 F 12/15/16 11:34 Pulse Rate 140 12/15/16 11:34 Respiratory Rate 24 12/15/16 11:34 Blood Pressure 103/68 12/15/16 11:34 O2 Sat by Pulse Oximetry 94 12/15/16 11:34 Temperature 98.2 F 12/15/16 19:05 Pulse Rate 119 12/15/16 18:40 Respiratory Rate 20 12/15/16 19:05 Blood Pressure 114/65 12/15/16 19:05 O2 Sat by Pulse Oximetry 97 12/15/16 18:40 Oxygen Delivery Oxygen Delivery Nasal Cannula Procedures - Central Line Placement Right Femoral Central Line Inserted*: Yes Central Line Insertion: emergent Consent Obtained: written consent Procedural Pause: verify patient name and date of , timeout performed per policy, assemble equipment and verify supplies, perform hand hygiene Patient Placed on Monitor/Pulse Ox: Yes During the Procedure: clinician is wearing sterile gloves, cap, mask,& gown during insertion, sterile field and sterile technique are maintained, patient's face is covered with drape or mask and wearing a cap, everyone in room is wearing a mask Central Line Prep: Chlorhexidine scrub Prep the Procedure Site: apply chloraprep to the skin using a back and forth scrubbing motion, allow prep to dry, drape the patient with a full body drape Local Anesthetic: lidocaine 1% Amount of anesthesia used (mL): 4 Ultrasound Used for Placement: No Central Line Lumen Inserted: triple Post Procedure: sutured in place Patient Tolerated Procedure: well Name of Clinician Inserting Central Line: Byron Zee MD Date: 12/15/16 Time: 13:00 Shortness of Breath/Dyspnea - Lab Data Result diagrams: 12/15/16 12:41 12/15/16 12:41 Lab Results 12/15/16 12/15/16 12/15/16 Range/Units 12:41 12:41 12:41 WBC 38.5 H* (4.3-11.1) K/mcL RBC 3.38 L (4.19-5.50) M/mcL Hgb 9.5 L (12.9-16.9) g/dL Hct 30.2 L (37.5-50.1) % MCV 89.3 (83.0-100.0) fL MCH 28.1 (28.0-33.3) pg MCHC 31.5 L (31.6-35.5) g/dL RDW 14.3 (11.5-14.5) % Plt Count 288 (140-400) K/mcL MPV 10.3 (9.4-12.4) fL Seg Neutrophils % 80.0 % Lymphocytes % 12.0 % Monocytes % 8.0 % Neutrophils # 30.8 H (1.6-8.9) K/mcL Lymphocytes # 4.6 (0.6-4.6) K/mcL Monocytes # 3.1 H (0.0-1.3) K/mcL Toxic Vacuolation Present A (Not Present) Platelet Estimate Normal (Normal) D-Dimer 16100 H (0-500) ng/mLFEU VBG pH (7.32-7.42) pH Units VBG pCO2 (41-51) mmHg VBG pO2 (25-40) mmHg VBG HCO3 (21-27) mEq/L Sodium 133 L (136-145) mEq/L Potassium 4.2 (3.5-4.5) mEq/L Chloride 100 (98-109) mEq/L Carbon Dioxide 27 (19-29) mEq/L BUN 24 (8-26) mg/dL Creatinine 1.06 (0.72-1.25) mg/dL Est GFR ( Amer) > 60 (> 60) Est GFR (Non-Af Amer) > 60 (> 60) BUN/Creatinine Ratio 23 (6-26) Glucose 107 H (70-99) mg/dL Calculated Osmolality 281 (280-300) Lactic Acid (0.5-2.2) mmol/L Calcium 8.9 (8.6-10.8) mg/dL Total Bilirubin 0.6 (0.2-1.2) mg/dL AST 63 H (5-34) Units/L ALT 51 (0-55) Units/L Alkaline Phosphatase 204 H (38-126) Units/L Troponin I (0-0.03) ng/mL Serum Total Protein 5.7 L (6.0-8.3) g/dL Albumin 1.8 L (3.5-5.0) g/dL Globulin 3.9 H (2.4-3.5) g/dL Albumin/Globulin Ratio 0.5 L (1.1-2.2) 12/15/16 12/15/16 12/15/16 Range/Units 12:41 12:41 12:50 WBC (4.3-11.1) K/mcL RBC (4.19-5.50) M/mcL Hgb (12.9-16.9) g/dL Hct (37.5-50.1) % MCV (83.0-100.0) fL MCH (28.0-33.3) pg MCHC (31.6-35.5) g/dL RDW (11.5-14.5) % Plt Count (140-400) K/mcL MPV (9.4-12.4) fL Seg Neutrophils % % Lymphocytes % % Monocytes % % Neutrophils # (1.6-8.9) K/mcL Lymphocytes # (0.6-4.6) K/mcL Monocytes # (0.0-1.3) K/mcL Toxic Vacuolation (Not Present) Platelet Estimate (Normal) D-Dimer (0-500) ng/mLFEU VBG pH 7.46 H (7.32-7.42) pH Units VBG pCO2 40 L (41-51) mmHg VBG pO2 57 H (25-40) mmHg VBG HCO3 28.4 H (21-27) mEq/L Sodium (136-145) mEq/L Potassium (3.5-4.5) mEq/L Chloride (98-109) mEq/L Carbon Dioxide (19-29) mEq/L BUN (8-26) mg/dL Creatinine (0.72-1.25) mg/dL Est GFR ( Amer) (> 60) Est GFR (Non-Af Amer) (> 60) BUN/Creatinine Ratio (6-26) Glucose (70-99) mg/dL Calculated Osmolality (280-300) Lactic Acid 1.4 (0.5-2.2) mmol/L Calcium (8.6-10.8) mg/dL Total Bilirubin (0.2-1.2) mg/dL AST (5-34) Units/L ALT (0-55) Units/L Alkaline Phosphatase (38-126) Units/L Troponin I 0.01 (0-0.03) ng/mL Serum Total Protein (6.0-8.3) g/dL Albumin (3.5-5.0) g/dL Globulin (2.4-3.5) g/dL Albumin/Globulin Ratio (1.1-2.2) - EKG Data EKG attestation: Yes I reviewed and interpreted this EKG. EKG results narrative: Sinus tachycardia with a rate of 145. Electrical indices are within normal limits. [place] is normal. Mild lateral T-wave abnormalities / inversions appreciated. No other acute abnormalities are noted. Rate: Reports: tachycardia Attestation Statement - Attestation Attestation: The high probability of a clinically significant, sudden or life threatening deterioration of the [cardiopulmonary] system(s) required my full and direct attention, intervention and personal management. The aggregate critical care time was [20] minutes. This time is in addition to time spent performing reported procedures but includes the following: [x] Data Review and interpretation [x] Patient assessment and monitoring of vital signs [x] Documentation [x] Medication orders and management
[2016-12-15] MEDS ORDERED: 0.9 % Sodium Chloride 500 ML IVC ONE (13:26)
[2016-12-15] MEDS ORDERED: Ondansetron 4 MG/2 ML VIAL IVP ONE (13:26)
[2016-12-15] MEDS ORDERED: *HR* FentaNYL (PF) 100 MCG/2 ML VIAL IVP ONE ×2 (13:26→15:26)
[2016-12-15 13:34] LABS: Alanine Aminotransferase 51 Units/L (0-55); Albumin/Globulin Ratio 0.5 (1.1-2.2); Alkaline Phosphatase 204 Units/L (38-126); Aspartate Amino Transferase 63 Units/L (5-34); BUN/Creatinine Ratio 23 (6-26); Bilirubin,Total 0.6 mg/dL (0.2-1.2); Blood Urea Nitrogen 24 mg/dL (8-26); Calcium 8.9 mg/dL (8.6-10.8); Carbon Dioxide 27 mEq/L (19-29); Chloride 100 mEq/L (98-109); Globulin 3.9 g/dL (2.4-3.5); Glucose 107 mg/dL (70-99); Osmolality,Calculated 281 (280-300); Potassium 4.2 mEq/L (3.5-4.5); Sodium 133 mEq/L (136-145); Total Protein 5.7 g/dL (6.0-8.3); eGFR For African Americans > 60 (> 60); eGFR For Non-African Americans > 60 (> 60)
[2016-12-15 13:35] LABS: Albumin 1.8 g/dL (3.5-5.0)
[2016-12-15 13:42] LABS: VBG HCO3 28.4 mEq/L (21-27); VBG PH 7.46 pH Units (7.32-7.42)
[2016-12-15 14:02] LABS: Lymphocytes # 4.6 K/mcL (0.6-4.6); Monocytes # 3.1 K/mcL (0.0-1.3); Neutrophils # 30.8 K/mcL (1.6-8.9)
[2016-12-15 14:03] LABS: Platelet Estimate Normal (Normal)
[2016-12-15 14:08] LABS: Toxic Vacuolation Present (Not Present)
[2016-12-15] MEDS ORDERED: Acetylcysteine 10% 2 ML INHSOL IH STA (16:14)
[2016-12-15] MEDS ORDERED: Ipratropium/Albuterol Neb 3 ML IH ONE (16:14)
[2016-12-15] MEDS ORDERED: Piperacillin/Tazobactam 3.375 GM in D5% in Water (Mini-Bag+) 100 ML IVPB ONE (17:55)
[2016-12-15] MEDS ORDERED: Vancomycin 1,000 MG in D5% in Water 250 ML IVPB ONE (17:55)
--- NOTE | 2016-12-15 18:26 | Internal Med History&Physical ---
Date of Encounter: 12/15/16 Time of Encounter: 18:00 Assessment and Plan (1) Counseling regarding goals of care Current visit: Yes Status: Acute consult to palliative team. (2) Primary lung cancer with metastasis from lung to other site Current visit: Yes Status: Chronic Progression of lung cancer. Qualifiers: Laterality: left Qualified Code(s): C34.92 - Malignant neoplasm of unspecified part of left bronchus or lung (3) Acute and chronic respiratory failure Current visit: No Status: Acute secondary to large left pleural effusion, progression of lung cancer with mets, post-obstructive pneumonia. Patient was just discharged from our hospital yesterday after a prolonged hospitalization from 11/20 to 12/14. He was treated for sepsis due to postobstructive pneumonia E coli, large left pleural effusion status post thoracentesis with removal of 1.4 L and had palliative radiation on December 11. Palliative service was involved and he remain full code. At that time, he was recommended to enroll in hospice care due to his overall very poor prognosis; however, he declined. Yesterday, he got home and after an hour he developed progressive shortness of breath that continued to worsen and this morning was so severe that he came to our ED. On arrival to our ED, patient was tachycardic heart rate 140, hypoxic, tachypneic and normotensive. WBC 38. D- dimer 60,689. CTA chest showed no PE, large left pleural effusion with compressive atelectasis of the left lower lobe, disease progression with interval increase in size of soft tissue mass in the left hilum, right lower lobe nodule and masslike consolation in the left upper lobe. A femoral line was placed and he received albuterol, Atrovent and Mucomyst nebulizations as well as pain medications. He was requiring 3 L of oxygen via nasal cannula with a SaO2 90%. His heart rate went down to 116 and respiratory rate 20. patient is alert and oriented 3. He is able to decide on his medical therapy. He wishes to be DNR CCA DNI. He agrees with pleural catheter. consult to IR for pleuredex cath. empiric antibiotics. Qualifiers: Respiratory failure complication: hypoxia Qualified Code(s): J96.21 - Acute and chronic respiratory failure with hypoxia (4) Postobstructive pneumonia Current visit: No Status: Acute continue empiric antibiotics. (5) Pleural effusion on left Current visit: No Status: Acute plan as above (6) Cancer associated pain Current visit: No Status: Chronic Iv dilaudid. (7) CVA (cerebral vascular accident) Current visit: No Status: Chronic history of cva Qualifiers: CVA mechanism: unspecified Qualified Code(s): I63.9 - Cerebral infarction, unspecified Internal Medicine - H&P: HPI Chief complaint: progressive shortness of breath since yesterday. Admitted From: Home History of present illness: Mr. Bliss is a 56 year old male with pmh of metastatic lung cancer with metastases to brain, liver, adrenals and bone. Patient was just discharged from our hospital yesterday after a prolonged hospitalization from 11/20 to . He was treated for sepsis due to postobstructive pneumonia E coli, large left pleural effusion status post thoracentesis with removal of 1.4 L and had palliative radiation on December 11. Palliative service was involved and he remain full code. At that time, he was recommended to enroll in hospice care due to his overall very poor prognosis; however, he declined. Yesterday, he got home and after an hour he developed progressive shortness of breath that continued to worsen and this morning was so severe that he came to our ED. On arrival to our ED, patient was tachycardic heart rate 140, hypoxic, tachypneic and normotensive. WBC 38. D-dimer 60,689. CTA chest showed no PE, large left pleural effusion with compressive atelectasis of the left lower lobe, disease progression with interval increase in size of soft tissue mass in the left hilum , right lower lobe nodule and masslike consolation in the left upper lobe. A femoral line was placed and he received albuterol, Atrovent and Mucomyst nebulizations as well as pain medications. He was requiring 3 L of oxygen via nasal cannula with a SaO2 90%. His heart rate went down to 116 and respiratory rate 20. patient is alert and oriented 3. He is able to decide on his medical therapy. He wishes to be DNR CCA DNI. He agrees with thoracentesis. His family is asking about PEG tube placement. Past Med Surg Social Fam HX - Past Medical History Medical history: arthritis, cancer, CHF, COPD, CVA, DVT, hyperlipidemia, hypertension, other Psychiatric history: anxiety, depression - Past Surgical History Surgical History: herniorrhaphy, orthopedic, other (left shoulder, ) - Social History Smoking Status: Current some day smoker Smokeless Tobacco Status: No Alcohol use: none Drug use: marijuana - Family History Father Adopted: No Family Member Ethnicity: Non- Living Status: Hx Family Cancer: Yes Internal Medicine - H&P: Meds Buspirone HCl [Buspar] 7.5 mg PO BID 04/21/16 [History] Gabapentin 600 mg PO TID 04/21/16 [History] SUMAtriptan Succinate [Imitrex] 100 mg PO DAILY PRN 04/21/16 [History] lamoTRIgine [Lamictal] 75 mg PO BID 04/21/16 [History] Ipratropium/Albuterol Neb [Duoneb] 3 ml IH Q6HR PRN 07/21/16 [History] Tiotropium [Spiriva] 18 mcg IH DAILY 07/21/16 [History] Metoprolol Succinate 100 mg PO DAILY 09/05/16 [History] Albuterol Sulfate [Albuterol Inhaler] 2 puff IH Q6H PRN 09/08/16 [History] Zolpidem [Ambien] 5 mg PO HS 09/14/16 [History] Folic Acid 1 mg PO DAILY #30 tablet 09/28/16 [Rx] Loratadine [Claritin] 10 mg PO AD #60 tablet 09/28/16 [Rx] Omeprazole [PriLOSEC] 20 mg PO DAILY #30 capsule 09/28/16 [Rx] Ondansetron [Zofran] 8 mg PO Q8HR PRN #90 tablet 09/28/16 [Rx] Prochlorperazine Maleate [Compazine] 10 mg PO Q6HR PRN #60 tablet 09/28/16 [Rx] Oxymetazoline [Afrin] 15 spray NS AD PRN #1 bottle 10/06/16 [Rx] diazePAM [Valium] 10 mg PO BID PRN #30 tablet 11/07/16 [Rx] Aspirin 81 mg PO DAILY 11/20/16 [History] OLANZapine [Zyprexa] 2.5 mg PO DAILY 11/20/16 [History] Umeclidinium [place] [Incruse [place]ipt[place]] 62.5 mcg IH DAILY 11/20/16 [History] Acetaminophen [Tylenol] 650 mg PO Q6HR tab 12/14/16 [Rx] Bisacodyl [Dulcolax] 5 mg PO DAILY PRN tab 12/14/16 [Rx] GuaiFENesin/Dextromethorphan [Mucinex Dm] 1 each PO BID 12/14/16 [Rx] Ipratropium/Albuterol Neb [Duoneb] 3 ml IH [id number] #30 inh 12/14/16 [Rx] Magnesium Oxide [Mag-Ox] 400 mg PO BID tab 12/14/16 [Rx] Nicotine Patch [Nicoderm] 21 mg TD DAILY #30 patch.td24 12/14/16 [Rx] OxyCODONE ER (12 HR) [OxyCONTIN] 10 mg PO Q12HR PRN #30 tab 12/14/16 [Rx] OxyCODONE Immed Rel [Roxicodone 5 MG] 10 mg PO Q2H PRN #30 tab 12/14/16 [Rx] Polyethylene Glycol 3350 [MiraLAX] 17 gm PO DAILY 12/14/16 [Rx] Sennosides/Docusate Sodium [Senna Plus] 2 each PO BID tab 12/14/16 [Rx] amLODIPine [Norvasc] 5 mg PO BID tab 12/14/16 [Rx] Allergies doxycycline Allergy (Verified 10/22/16 16:08) Rash hydrocodone [From Vicodin] Allergy (Verified 10/22/16 16:08) Rash lidocaine Allergy (Verified 10/22/16 16:08) Rash propoxyphene [From Darvocet-N] Allergy (Verified 10/22/16 16:08) Rash morphine patches Allergy (Intermediate, Uncoded 10/22/16 16:08) Rash All Systems PM: A 10-system review of systems was performed and is negative for pertinent findings except as documented above in the HPI. - Constitutional Vitals: Temp Pulse Resp BP Pulse Ox 98.9 F 116 20 115/87 90 12/15/16 11:34 12/15/16 16:13 12/15/16 16:59 12/15/16 16:13 12/15/16 16:59 General appearance: Present: cooperative, mild distress, A&O X 3, pleasant, answers questions appropriately - Eye Eye exam: Present: PERRL, sclera anicteric - Neck Neck exam general surgery: Present: supple, trachea midline. Absent: lymphadenopathy - Respiratory Respiratory exam: Present: decreased breath sounds (at left lower lung field), rhonchi - Cardiovascular Cardiovascular exam: Present: tachycardia - GI/Abdominal GI/Abdominal exam: Present: normal bowel sounds, soft. Absent: distended, tenderness - Extremities Exam Extremities exam: Absent: pedal edema - Neurological Exam Neurological exam: Present: alert, oriented X3. Absent: facial droop, speech deficit Internal Med - H&P Results - Labs CBC & Chem 7: 12/15/16 12:41 12/15/16 12:41 Labs: Short CBC 12/15/16 Range/Units 12:41 WBC 38.5 H* (4.3-11.1) K/mcL Hgb 9.5 L (12.9-16.9) g/dL Hct 30.2 L (37.5-50.1) % Plt Count 288 (140-400) K/mcL Neutrophils # 30.8 H (1.6-8.9) K/mcL BMP 12/15/16 12:41 Sodium 133 L Potassium 4.2 Chloride 100 Carbon Dioxide 27 BUN 24 Creatinine 1.06 Glucose 107 H Calcium 8.9 Cardiac Enzymes 12/15/16 Range/Units 12:41 Troponin I 0.01 (0-0.03) ng/mL Liver Function 12/15/16 Range/Units 12:41 Total Bilirubin 0.6 (0.2-1.2) mg/dL AST 63 H (5-34) Units/L ALT 51 (0-55) Units/L Alkaline Phosphatase 204 H (38-126) Units/L Albumin 1.8 L (3.5-5.0) g/dL - ABG Interpretation ABG results: 12/15/16 12:50 VBG pH 7.46 H VBG pCO2 40 L VBG pO2 57 H VBG HCO3 28.4 H - Impressions ITS Impressions Chest X-Ray 12/15/16 12:10 IMPRESSION: 80% opacification of the left hemithorax, with mildly improved aeration at the left lung base. No evidence of pneumothorax. D/ / Harinder Noel MD / Harinder Noel MD Interpreting Provider: Harinder Noel MD Abdomen/Pelvis CTA 12/15/16 14:15 IMPRESSION: 1. No evidence of pulmonary embolus. 2. Large left pleural effusion, increased since December 02, 2016, with compressive atelectasis of the left lower lobe. 3. Disease progression with interval increase in size of soft tissue mass in the left hilum, right lower lobe nodule, and masslike consolidation in the left upper lobe in a patient with known lung cancer. The left upper lobe consolidation is probably due to post obstructive uropathy of the left upper lobe due to the left hilar mass. 4. Bilateral adrenal metastasis, retroperitoneal adenopathy, bone metastasis, and multiple hypodensities in the liver highly suspicious for liver metastasis. Persistent thickening of the interstitium in the left lower lobe suspicious for lymphangitis. 5. Emphysema. 6. Small pericardial effusion. D/ : / 12/15/2016 16:19:16 Keon Estes MD / Lisa Cherry Interpreting Provider: Keon Estes MD Chest CTA 12/15/16 14:15 IMPRESSION: 1. No evidence of pulmonary embolus. 2. Large left pleural effusion, increased since December 02, 2016, with compressive atelectasis of the left lower lobe. 3. Disease progression with interval increase in size of soft tissue mass in the left hilum, right lower lobe nodule, and masslike consolidation in the left upper lobe in a patient with known lung cancer. The left upper lobe consolidation is probably due to post obstructive uropathy of the left upper lobe due to the left hilar mass. 4. Bilateral adrenal metastasis, retroperitoneal adenopathy, bone metastasis, and multiple hypodensities in the liver highly suspicious for liver metastasis. Persistent thickening of the interstitium in the left lower lobe suspicious for lymphangitis. 5. Emphysema. 6. Small pericardial effusion. D/ / 12/15/2016 16:19:16 Keon Estes MD / Lisa Cherry Interpreting Provider: Keon Estes MD
[2016-12-15] MEDS ORDERED: Naloxone 0.4 MG/ML INJ IVP PRN (19:16)
[2016-12-15] MEDS ORDERED: Ondansetron 4 MG/2 ML VIAL IVP PRN (19:16)
[2016-12-15] MEDS ORDERED: Albuterol 2.5 MG/3 ML NEBULIZER IH PRN (19:19)
[2016-12-15] MEDS: Ipratropium/Albuterol Neb 3 ML IH SCH ×2 (19:51→23:09)
[2016-12-15] MEDS: *HR* HYDROmorphone (PF) 1 MG/ML SYRINGE IVP PRN (19:57)
[2016-12-15] MEDS ORDERED: Vancomycin 1,000 MG in D5% in Water 250 ML IVPB SCH (20:00)
[2016-12-15] MEDS: *HR* OxyCODONE Immed Rel 5 MG TABLET PO PRN (21:43)
[2016-12-15 23:00] LABS: Bilirubin,Urine Negative (Negative); Blood,Urine Moderate (Negative); Clarity,Urine Clear (Clear); Color,Urine Yellow (Yellow); Glucose,Urine (UA) Normal (Normal); Ketones,Urine Negative (Negative); Leukocyte Esterase,Urine Negative (Negative); Nitrite,Urine Negative (Negative); Protein,Urine 30 mg/dL (Neg-Trace); Specific Gravity,Urine > 1.030 (1.010-1.025); Urobilinogen,Urine Normal (Normal)
[2016-12-15 23:03] LABS: Bacteria,Urine None Seen per hpf (None-Few); Hyaline Casts,Urine None Seen per lpf (None-Few); RBC,Urine 0-3 per hpf (0-3); Squamous Epithelial Cell,Urine Moderate per lpf (None-Few)
[2016-12-15] MEDS: Piperacillin/Tazobactam 3.375 GM in D5% in Water (Mini-Bag+) 100 ML IVPB SCH (23:57)
[2016-12-16] MEDS: *HR* HYDROmorphone (PF) 1 MG/ML SYRINGE IVP PRN ×4 (00:07→20:57)
[2016-12-16] MEDS ORDERED: *HR* HYDROmorphone (PF) 1 MG/ML SYRINGE IVP ONE ×2 (02:50→04:20)
[2016-12-16] MEDS: Ipratropium/Albuterol Neb 3 ML IH SCH ×6 (03:35→23:36)
[2016-12-16] MEDS ORDERED: Vancomycin 1,250 MG in D5% in Water 250 ML IVPB SCH (06:00)
[2016-12-16] MEDS: Pantoprazole 40 MG VIAL IVP SCH (07:58)
[2016-12-16] MEDS: Piperacillin/Tazobactam 3.375 GM in D5% in Water (Mini-Bag+) 100 ML IVPB SCH ×2 (08:11→16:30)
[2016-12-16 09:12] LABS: Hemoglobin 8.9 g/dL (12.9-16.9); Mean Platelet Volume 10.2 fL (9.4-12.4)
[2016-12-16 09:13] LABS: Hematocrit 27.4 % (37.5-50.1); Mean Corpuscular HGB Conc 32.5 g/dL (31.6-35.5); Mean Corpuscular Hemoglobin 28.4 pg (28.0-33.3); Mean Corpuscular Volume 87.5 fL (83.0-100.0); Platelet Count 201 K/mcL (140-400); Red Blood Count 3.13 M/mcL (4.19-5.50); Red Cell Distribution Width 14.5 % (11.5-14.5)
[2016-12-16 09:28] LABS: Alanine Aminotransferase 62 Units/L (0-55); Albumin/Globulin Ratio 0.4 (1.1-2.2); Alkaline Phosphatase 199 Units/L (38-126); Aspartate Amino Transferase 109 Units/L (5-34); BUN/Creatinine Ratio 16 (6-26); Bilirubin,Indirect 0.3 mg/dL (0.0-1.2); Blood Urea Nitrogen 15 mg/dL (8-26); Calcium 9.2 mg/dL (8.6-10.8); Carbon Dioxide 26 mEq/L (19-29); Chloride 98 mEq/L (98-109); Glucose 155 mg/dL (70-99); Lymphocytes # 3.2 K/mcL (0.6-4.6); Monocytes # 2.1 K/mcL (0.0-1.3); Neutrophils # 21.4 K/mcL (1.6-8.9); Osmolality,Calculated 278 (280-300); Potassium 3.8 mEq/L (3.5-4.5); Sodium 132 mEq/L (136-145); Total Protein 5.6 g/dL (6.0-8.3); eGFR For African Americans > 60 (> 60); eGFR For Non-African Americans > 60 (> 60)
[2016-12-16 09:29] LABS: Albumin 1.6 g/dL (3.5-5.0); Bilirubin,Total 1.3 mg/dL (0.2-1.2); Platelet Estimate Normal (Normal)
--- NOTE | 2016-12-16 09:41 | Electrocardiograph Report ---
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
[2016-12-16] MEDS: Acetaminophen 325 MG TABLET PO PRN (12:07)
[2016-12-16 14:12] LABS: Thyroid Stimulating Hormone 1.131 mcIU/mL (0.350-4.840)
--- NOTE | 2016-12-16 14:25 | Palliative - Consult Note ---
Date of Encounter: 12/16/16 Time of Encounter: 09:30 - Assessment and Plan (1) Counseling regarding advanced directives and goals of care Current Visit: Yes Status: Acute Assessment and plan: Patient recently discharged to home with HH in the care of sister Leslie. Patient was discharged two days ago after a lengthy hospital stay for obstructive pneumonia from lung cancer. The patient has metastatic lung cancer and is currently seeking treatment at the [facility]. Patient is well known to the PC team from previous admission. Upon this consult the patient is alert, complaining of generalized pain to his abdomen, legs and back. He rates his pain as a 4/10 and sharp at times. His sister Leslie explains that he was unable to get his pain medication filled at the time of DC due to it requiring a preauthorization. I discussed the patients need for a thoracentesis and possible Pleurx catheter placement and the patient agrees to having these procedures. I discussed that the patient meets Hospice criteria and if he now so desires comfort care. I explained Hospice and quality of life focus to Leslie the patients sister. The patient is adamant about not wanting to transition to Hospice. I explained to him that if he reaches the point in his care where he desires only comfort care that we could transition his care. He desires full treatment and wishes not to discuss this again. I reviewed his home medication list and will adjust his pain medications as needed for comfort. The patient confirms his desire for DNRCC-A, DNI status and I further explained that given his decision for this that he would not be a candidate for PEG insertion if his nutritional status continues to be less that body requirements. He and his sister verbalized understanding. (2) Cancer associated pain Current Visit: Yes Status: Chronic Assessment and plan: Patient with metastatic lung cancer. Recently discharged to home in the care of his sister Leslie. Patient reports allergy to morphine patches and hydrocodone. Patient was taking Will add Ox Contin 10mg BID and BTP medication Oxycodone and Dilaudid. (3) Therapeutic opioid induced constipation Current Visit: No Status: Acute Assessment and plan: Add Mirilax to POC and follow I&O. (4) Lung cancer Current Visit: No Status: Chronic Assessment and plan: Patient currently having radiation to lung mass. Qualifiers: Laterality: left Lung location: unspecified part of lung Qualified Code(s ): C34.92 - Malignant neoplasm of unspecified part of left bronchus or lung Palliative-CN HPI - Data of Consult Patient: known to practice within the last 3 years Consult date: 12/16/16 Requesting Physician: Lorrie Dumont Primary Care Provider: Raheel Cardenas, - Consult Narrative Palliative Care/Comfort Measures: Palliative care Reason for consult: Goals of Care History of present illness: Mr. Bliss is a 56 year old male who was discharged two days ago after a lengthy hospital stay. He has been readmitted with complaints of SOB and abdominal pain. Patient has metastatic lung cancer who recently suffered from obstructive pneumonia caused by a lung tumor. The patient is still seeking treatment through the [facility]. He also is receiving radiation to the left lung mass. The patient was discharged home in the care of is sister Leslie. The patient had refused Hospice care in the past because he desires treatment. Dr. Ortiz reports that if the patient can improve his nutrition and breathing that immunotherapy would be an option. This palliative care consult if for GOC discussion. CC: Lorrie Dumont Past Med Surg Social Fam HX - Past Medical History Source: patient, old records reviewed, obtained from family Medical history: arthritis, cancer, CHF, COPD, CVA, DVT, hyperlipidemia, hypertension, other Psychiatric history: anxiety, depression - Past Surgical History Surgical History: herniorrhaphy, orthopedic, other - Social History Smoking Status: Current some day smoker Smokeless Tobacco Status: No Alcohol use: none Drug use: marijuana Occupational status: unemployed Current living situation: Home, With Family Activity Level: Uses cane/walker Recent Out of Country Travel Within the Last 8 Weeks: No Exposure or Possible Exposure to Illness During Travel: No - Family History Father Adopted: No Family Member Ethnicity: Non- Living Status: Age at : 53 Cause of : Cancer Hx Family Cardiac Disorders: No Hx Family Respiratory Disorders: Yes Hx Family Cancer: Yes Hx Family GI Disorders: No Hx Family Genitourinary Disorders: No Hx Family Endocrine Disorder: No Hx Family Musculoskeletal Disorders: No Hx Family Neuromuscular Disorders: No Hx Family Neurologic Disorders: No Hx Family HEENT Disorders: No Hx Family Autoimmune Disorders: No Hx Family Reproductive Disorders: No Hx Family Psychosocial Disorders: No Hx Family Medical Disorders: No Medications and Allergies Buspirone HCl [Buspar] 7.5 mg PO BID 04/21/16 [History] Gabapentin 600 mg PO TID 04/21/16 [History] SUMAtriptan Succinate [Imitrex] 100 mg PO DAILY PRN 04/21/16 [History] lamoTRIgine [Lamictal] 75 mg PO BID 04/21/16 [History] Ipratropium/Albuterol Neb [Duoneb] 3 ml IH Q6HR PRN 07/21/16 [History] Tiotropium [Spiriva] 18 mcg IH DAILY 07/21/16 [History] Metoprolol Succinate 100 mg PO DAILY 09/05/16 [History] Albuterol Sulfate [Albuterol Inhaler] 2 puff IH Q6H PRN 09/08/16 [History] Zolpidem [Ambien] 5 mg PO HS 09/14/16 [History] Folic Acid 1 mg PO DAILY #30 tablet 09/28/16 [Rx] Loratadine [Claritin] 10 mg PO AD #60 tablet 09/28/16 [Rx] Ondansetron [Zofran] 8 mg PO Q8HR PRN #90 tablet 09/28/16 [Rx] Prochlorperazine Maleate [Compazine] 10 mg PO Q6HR PRN #60 tablet 09/28/16 [Rx] Oxymetazoline [Afrin] 15 spray NS AD PRN #1 bottle 10/06/16 [Rx] diazePAM [Valium] 10 mg PO BID PRN #30 tablet 11/07/16 [Rx] Aspirin 81 mg PO DAILY 11/20/16 [History] OLANZapine [Zyprexa] 2.5 mg PO DAILY 11/20/16 [History] Umeclidinium [place] [Incruse Ellipta] 62.5 mcg IH DAILY 11/20/16 [History] Acetaminophen [Tylenol] 650 mg PO Q6HR tab 12/14/16 [Rx] Bisacodyl [Dulcolax] 5 mg PO DAILY PRN tab 12/14/16 [Rx] GuaiFENesin/Dextromethorphan [Mucinex Dm] 1 each PO BID 12/14/16 [Rx] Ipratropium/Albuterol Neb [Duoneb] 3 ml IH [id number] #30 inh 12/14/16 [Rx] Magnesium Oxide [Mag-Ox] 400 mg PO BID tab 12/14/16 [Rx] Nicotine Patch [Nicoderm] 21 mg TD DAILY #30 patch.td24 12/14/16 [Rx] OxyCODONE ER (12 HR) [OxyCONTIN] 10 mg PO Q12HR PRN #30 tab 12/14/16 [Rx] OxyCODONE Immed Rel [Roxicodone 5 MG] 10 mg PO Q2H PRN #30 tab 12/14/16 [Rx] Polyethylene Glycol 3350 [MiraLAX] 17 gm PO DAILY 12/14/16 [Rx] Sennosides/Docusate Sodium [Senna Plus] 2 each PO BID tab 12/14/16 [Rx] amLODIPine [Norvasc] 5 mg PO BID tab 12/14/16 [Rx] Allergies doxycycline Allergy (Verified 10/22/16 16:08) Rash hydrocodone [From Vicodin] Allergy (Verified 10/22/16 16:08) Rash lidocaine Allergy (Verified 10/22/16 16:08) Rash propoxyphene [From Darvocet-N] Allergy (Verified 10/22/16 16:08) Rash morphine patches Allergy (Intermediate, Uncoded 10/22/16 16:08) Rash All systems: reviewed and no additional remarkable complaints except as stated ( generalized abdominal pain, and SOB.) - Constitutional Constitutional ROS PAL: decreased appetite, weight loss - EENT Eyes: requires corrective lenses - Respiratory Respiratory: dyspnea, dyspnea on exertion - Gastrointestinal Gastrointestinal: constipation (occasional ) - Musculoskeletal Musculoskeletal ROS IM: arthralgias, muscle weakness Palliative Care-Exam - Constitutional Vitals: Temp Pulse Resp BP Pulse Ox 101.6 F H 150 18 95/62 98 12/16/16 10:55 12/16/16 10:55 12/16/16 11:10 12/16/16 10:55 12/16/16 11:10 General appearance: Present: mild distress (SOB) - Head Head Exam: Present: atraumatic, normal inspection, normocephalic - Eye Eye exam: Present: PERRL - ENT ENT exam: Present: mucous membranes moist - Neck Neck exam: Present: full ROM - Respiratory Respiratory exam: Present: decreased breath sounds - Expanded Respiratory Exam Location: decreased breath sounds: Left, Upper, Lower - Cardiovascular Cardiovascular exam: Present: RRR, +S1, +S2 - Expanded Cardiovascular Exam Peripheral pulses: 1+: Femoral (L) PM, Femoral (R) PM, 2+: Carotid (L) PM, Carotid (R) PM, Radial (L), Radial (R), Posterior Tibialis (L), Posterior Tibialis (R), Dorsalis Pedis (L) PM, Dorsalis Pedis (R) PM - GI/Abdominal Exam GI/Abdominal exam: Present: normal bowel sounds, soft - Rectal Rectal Exam: Present: deferred - Expanded Upper Extremities Exam Shoulder exam: Present: full ROM Upper Arm exam: Present: full ROM - Back Exam Back exam: Present: vertebral tenderness - Neurological Exam Neurological exam: Present: alert, oriented X3 - Expanded Neurological Exam Patient oriented to: Present: person, place, time Cranial nerves: gag reflex: Normal Coma Scale Eye Opening: Spontaneous Coma Scale Motor Response: Obeys Commands Coma Scale Verbal Response: Oriented Coma Scale Total: 15 - Psychiatric Psychiatric exam: Present: normal affect - Skin Skin exam: Present: normal color, warm Internal Medicine - CN: Reslt - Labs CBC & Chem 7: 12/16/16 09:04 12/16/16 09:04 Labs: Short CBC 12/16/16 Range/Units 09:04 WBC 26.8 H (4.3-11.1) K/mcL Hgb 8.9 L (12.9-16.9) g/dL Hct 27.4 L (37.5-50.1) % Plt Count 201 (140-400) K/mcL Neutrophils # 21.4 H (1.6-8.9) K/mcL BMP 12/16/16 09:04 Sodium 132 L Potassium 3.8 Chloride 98 Carbon Dioxide 26 BUN 15 Creatinine 0.94 Glucose 155 H Calcium 9.2 Liver Function 12/16/16 Range/Units 09:04 Total Bilirubin 1.3 H D (0.2-1.2) mg/dL Direct Bilirubin 1.0 H (0.0-0.5) mg/dL AST 109 H (5-34) Units/L ALT 62 H (0-55) Units/L Alkaline Phosphatase 199 H (38-126) Units/L Albumin 1.6 L (3.5-5.0) g/dL - ABG Interpretation ABG results: PT/INR, D-dimer D-Dimer 56714 ng/mLFEU (0-500) H 12/15/16 12:41 Consult Discharge Plan - Plan Referrals: Domingo Morrison DO [Non-Partnered Physician] - 12/21/16 2:15 pm Raheel Cardenas DO [Primary Care Provider] - 12/22/16 2:00 pm Palliative Quality Palliative Quality: Screen for Code Status: Yes, Screen for Goals of Care: Yes, Screen for Pain: Yes, If Pain Regimen Started, Initiate Bowel Regimen: Yes, Screen for Nausea/Vomitting: Yes
--- NOTE | 2016-12-16 14:38 | IR Procedure Note ---
Date of procedure: 12/16/16 Consent Obtained: Written consent Timeout: Correct patient and procedure verified, Correct site verified, Time out performed, Skin prep completed Local anesthetic: Lidocaine 1% Indications: Left pleural effusion Procedure Performed: Left thoracentesis Complications: None; Tolerated procedure well (Monitor on floor)
[2016-12-16] MEDS ORDERED: 0.9 % Sodium Chloride 500 ML IVC STA (16:08)
[2016-12-16] MEDS: Acetylcysteine 10% 2 ML INHSOL IH SCH ×3 (16:23→23:36)
[2016-12-16] MEDS: *HR* OxyCODONE ER (12 HR) 10 MG TABLET PO SCH (16:31)
[2016-12-16] MEDS ORDERED: Vancomycin 1,000 MG in D5% in Water 250 ML IVPB SCH (18:00)
[2016-12-16] MEDS: 0.9 % Sodium Chloride 1,000 ML IVC SCH (18:02)
--- NOTE | 2016-12-16 18:49 | Internal Med Progress Note ---
Date of Encounter: 12/16/16 Time of Encounter: 10:30 - Assessment and plan (1) Counseling regarding goals of care Current Visit: Yes Status: Acute Assessment and plan: appreciate palliative input (2) Primary lung cancer with metastasis from lung to other site Current Visit: Yes Status: Chronic Assessment and plan: Progression of lung cancer. Qualifiers: Laterality: left Qualified Code(s): C34.92 - Malignant neoplasm of unspecified part of left bronchus or lung (3) Acute and chronic respiratory failure Current Visit: No Status: Acute Assessment and plan: secondary to large left pleural effusion, progression of lung cancer with mets, post-obstructive pneumonia. Patient was just discharged from our hospital yesterday after a prolonged hospitalization from 11/20 to 12/14. He was treated for sepsis due to postobstructive pneumonia E coli, large left pleural effusion status post thoracentesis with removal of 1.4 L and had palliative radiation on December 11. Palliative service was involved and he remain full code. At that time, he was recommended to enroll in hospice care due to his overall very poor prognosis; however, he declined. Yesterday, he got home and after an hour he developed progressive shortness of breath that continued to worsen and this morning was so severe that he came to our ED. On arrival to our ED, patient was tachycardic heart rate 140, hypoxic, tachypneic and normotensive. WBC 38. D- dimer 60,689. CTA chest showed no PE, large left pleural effusion with compressive atelectasis of the left lower lobe, disease progression with interval increase in size of soft tissue mass in the left hilum, right lower lobe nodule and masslike consolation in the left upper lobe. A femoral line was placed and he received albuterol, Atrovent and Mucomyst nebulizations as well as pain medications. He was requiring 3 L of oxygen via nasal cannula with a SaO2 90%. His heart rate went down to 116 and respiratory rate 20. IR consulted. plan for thoracentesis. pleural cath when WBC normalized. continue nebs, empiric antibiotics, iv fluids. Qualifiers: Respiratory failure complication: hypoxia Qualified Code(s): J96.21 - Acute and chronic respiratory failure with hypoxia (4) Postobstructive pneumonia Current Visit: No Status: Acute Assessment and plan: plan as above. (5) Pleural effusion on left Current Visit: No Status: Acute Assessment and plan: plan as above (6) Cancer associated pain Current Visit: Yes Status: Chronic Assessment and plan: appreciate palliative input (7) CVA (cerebral vascular accident) Current Visit: No Status: Chronic Qualifiers: CVA mechanism: unspecified Qualified Code(s): I63.9 - Cerebral infarction, unspecified (8) Sepsis Current Visit: No Status: Acute Assessment and plan: secondary to post-obstructed pneumonia. SIRS: 11.6, heart rate 150, WBC 38. Cultures taken. Continue empiric antibiotics. Qualifiers: Sepsis type: sepsis due to unspecified organism Qualified Code(s): A41.9 - Sepsis, unspecified organism - Subjective Interval history: patient reports severe abdominal pain. - Constitutional Vitals: Temp Pulse Resp BP Pulse Ox 99.1 F 140 18 88/65 99 12/16/16 15:45 12/16/16 15:45 12/16/16 15:45 12/16/16 15:45 12/16/16 15:45 General appearance: Present: cooperative, mild distress, A&O X 3, pleasant, answers questions appropriately - Neck Neck exam general surgery: Present: supple, trachea midline - Respiratory Respiratory exam: Present: decreased breath sounds - Cardiovascular Cardiovascular exam: Present: tachycardia - GI/Abdominal GI/Abdominal exam: Present: normal bowel sounds, soft, tenderness (diffuse ). Absent: distended, guarding, rebound - Extremities Exam Extremities exam: Absent: pedal edema - Neurological Exam Neurological exam: Present: alert, oriented X3, strengths equal and symetr throughout. Absent: facial droop, speech deficit Internal Medicine: Result - Labs CBC & Chem 7: 12/16/16 09:04 12/16/16 09:04 Labs: Short CBC 12/16/16 Range/Units 09:04 WBC 26.8 H (4.3-11.1) K/mcL Hgb 8.9 L (12.9-16.9) g/dL Hct 27.4 L (37.5-50.1) % Plt Count 201 (140-400) K/mcL Neutrophils # 21.4 H (1.6-8.9) K/mcL BMP 12/16/16 09:04 Sodium 132 L Potassium 3.8 Chloride 98 Carbon Dioxide 26 BUN 15 Creatinine 0.94 Glucose 155 H Calcium 9.2 Liver Function 12/16/16 Range/Units 09:04 Total Bilirubin 1.3 H D (0.2-1.2) mg/dL Direct Bilirubin 1.0 H (0.0-0.5) mg/dL AST 109 H (5-34) Units/L ALT 62 H (0-55) Units/L Alkaline Phosphatase 199 H (38-126) Units/L Albumin 1.6 L (3.5-5.0) g/dL - ABG Interpretation ABG results: PT/INR, D-dimer D-Dimer 99274 ng/mLFEU (0-500) H 12/15/16 12:41 - Impressions Impressions Thoracentesis Ultrasound 12/16/16 07:00 IMPRESSION: 1. Successful ultrasound guided left thoracentesis. D/ / Lee Luna MD / Lee Luna MD Interpreting Provider: Lee Luna MD Chest X-Ray 12/16/16 14:36 IMPRESSION: 1. Decrease left pleural effusion following thoracentesis with no immediate complications. 2. Otherwise, stable chest x-ray. D/ / Lee Luna MD / Lee Luna MD Interpreting Provider: Lee Luna MD Consult Discharge Plan - Plan Referrals: Domingo Morrison DO [Non-Partnered Physician] - 12/21/16 2:15 pm Raheel Cardenas DO [Primary Care Provider] - 12/22/16 2:00 pm
[2016-12-16] MEDS ORDERED: *HR* Metoprolol 5 MG/5 ML VIAL IVP ONE ×2 (23:33→23:34)
[2016-12-17] MEDS: Piperacillin/Tazobactam 3.375 GM in D5% in Water (Mini-Bag+) 100 ML IVPB SCH ×3 (00:15→17:06)
[2016-12-17] MEDS: *HR* HYDROmorphone (PF) 1 MG/ML SYRINGE IVP PRN ×2 (01:51→23:23)
[2016-12-17] MEDS: Ipratropium/Albuterol Neb 3 ML IH SCH ×7 (02:25→23:00)
[2016-12-17] MEDS: Acetylcysteine 10% 2 ML INHSOL IH SCH ×7 (02:25→23:00)
[2016-12-17] MEDS ORDERED: Dextrose Gel 15 GM PO PRN ×2 (02:42)
[2016-12-17] MEDS ORDERED: D5% in Water 1,000 ML IVC PRN (02:42)
[2016-12-17] MEDS ORDERED: *HR* Dextrose 50 % in Water (Syg) 50 ML SYRINGE IVP PRN (02:42)
[2016-12-17] MEDS: Acetaminophen 325 MG TABLET PO PRN ×2 (04:01→20:17)
[2016-12-17] MEDS: *HR* OxyCODONE ER (12 HR) 10 MG TABLET PO SCH ×2 (05:50→17:04)
[2016-12-17 06:50] LABS: Alanine Aminotransferase 51 Units/L (0-55); Albumin 1.4 g/dL (3.5-5.0); Albumin/Globulin Ratio 0.4 (1.1-2.2); Alkaline Phosphatase 194 Units/L (38-126); Aspartate Amino Transferase 85 Units/L (5-34); BUN/Creatinine Ratio 16 (6-26); Bilirubin,Direct 1.8 mg/dL (0.0-0.5); Bilirubin,Indirect 0.5 mg/dL (0.0-1.2); Blood Urea Nitrogen 14 mg/dL (8-26); Calcium 8.8 mg/dL (8.6-10.8); Carbon Dioxide 27 mEq/L (19-29); Chloride 101 mEq/L (98-109); Globulin 3.8 g/dL (2.4-3.5); Glucose 99 mg/dL (70-99); Magnesium 0.8 mg/dL (1.6-2.6); Osmolality,Calculated 275 (280-300); Potassium 3.8 mEq/L (3.5-4.5); Sodium 132 mEq/L (136-145); Total Protein 5.2 g/dL (6.0-8.3); eGFR For African Americans > 60 (> 60); eGFR For Non-African Americans > 60 (> 60)
[2016-12-17 06:51] LABS: Bilirubin,Total 2.3 mg/dL (0.2-1.2)
[2016-12-17 07:00] LABS: Basophils % 0.1 %; Hematocrit 26.6 % (37.5-50.1); Hemoglobin 8.6 g/dL (12.9-16.9); Immature Granulocytes % 2.2 % (0-4); Lymphocytes # 1.8 K/mcL (0.6-4.6); Lymphocytes % 7.5 %; Mean Corpuscular HGB Conc 32.3 g/dL (31.6-35.5); Mean Corpuscular Hemoglobin 28.6 pg (28.0-33.3); Mean Corpuscular Volume 88.4 fL (83.0-100.0); Mean Platelet Volume 11.1 fL (9.4-12.4); Monocytes # 2.1 K/mcL (0.0-1.3); Neutrophils # 19.3 K/mcL (1.6-8.9); Platelet Count 180 K/mcL (140-400); Red Blood Count 3.01 M/mcL (4.19-5.50); Red Cell Distribution Width 14.6 % (11.5-14.5); Segmented Neutrophils % 81.2 %
[2016-12-17] MEDS: Pantoprazole 40 MG VIAL IVP SCH (08:22)
[2016-12-17] MEDS ORDERED: Magnesium Sulfate 2 GM in D5% in Water 100 ML IVPB STA (08:33)
[2016-12-17] MEDS: *HR* OxyCODONE Immed Rel 5 MG TABLET PO PRN (12:03)
--- NOTE | 2016-12-17 12:40 | Electrocardiograph Report ---
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
[2016-12-17] MEDS ORDERED: Magnesium Sulfate 1 GM in D5% in Water 100 ML IVPB ONE (13:00)
--- NOTE | 2016-12-17 13:13 | Palliative Progress Note ---
Date of Encounter: 12/17/16 Time of Encounter: 12:30 - Assessment and plan (1) Counseling regarding advanced directives and goals of care Current Visit: Yes Status: Acute Assessment and plan: Patient transferred to overnight for further observation related to tachycardia, and low B/P. Patient alert and reports feeling better today. WBC elevated so Pleurx on hold for now until normal. Afebrile. Patient with poor po intake. Discussed case with Dietary and patient poor po intake. Patients chemo on hold d/t poor ability to tolerate. Discussed patients goals to return to Cancer Center for treatment if possible. Patient still desires treatment. May consider consulting Oncology again for discussion as patient has persistent pleural effusions and poor nutritional intake. (2) Cancer associated pain Current Visit: Yes Status: Chronic Assessment and plan: Current regimen of Oxycodone scheduled and BTP with IV Dilaudid and po Oxycodone. Only requested 3 doses of Dilaudid and 1 dose Oxy. Will follow. (3) Therapeutic opioid induced constipation Current Visit: No Status: Acute Assessment and plan: Patient with reported BMs last night. BS x 4. Will monitor. (4) Lung cancer Current Visit: No Status: Chronic Qualifiers: Laterality: left Lung location: unspecified part of lung Qualified Code(s ): C34.92 - Malignant neoplasm of unspecified part of left bronchus or lung - Time Spent With Patient Total time spent is greater than 50% in coordination of care (as documented) at patient's floor/unit and/or counseling patient: 25 - 35 minutes - Subjective Interval history: Events of last night noted with patient transfer to . Today, the patient reports feeling much better. Patient is s/p thoracentesis with removal of 2L yesterday. Afebrile now and denies pain. Resting comfortable. Sister Leslie at bedside. - Constitutional Vitals: Abnormal lab results WBC 23.7 K/mcL (4.3-11.1) H 12/17/16 06:20 RBC 3.01 M/mcL (4.19-5.50) L 12/17/16 06:20 Hgb 8.6 g/dL (12.9-16.9) L 12/17/16 06:20 Hct 26.6 % (37.5-50.1) L 12/17/16 06:20 RDW 14.6 % (11.5-14.5) H 12/17/16 06:20 Neutrophils # 19.3 K/mcL (1.6-8.9) H 12/17/16 06:20 Monocytes # 2.1 K/mcL (0.0-1.3) H 12/17/16 06:20 Toxic Vacuolation Present (Not Present) A 12/15/16 12:41 D-Dimer [id number] ng/mLFEU (0-500) H 12/15/16 12:41 VBG pH 7.46 pH Units (7.32-7.42) H 12/15/16 12:50 VBG pCO2 40 mmHg (41-51) L 12/15/16 12:50 VBG pO2 57 mmHg (25-40) H 12/15/16 12:50 VBG HCO3 28.4 mEq/L (21-27) H 12/15/16 12:50 Sodium 132 mEq/L (136-145) L 12/17/16 06:20 POC Glucose 106 (58-89) H 12/16/16 14:53 Calculated Osmolality 275 (280-300) L 12/17/16 06:20 Magnesium 0.8 mg/dL (1.6-2.6) L 12/17/16 06:20 Total Bilirubin 2.3 mg/dL (0.2-1.2) H D 12/17/16 06:20 Direct Bilirubin 1.8 mg/dL (0.0-0.5) H 12/17/16 06:20 AST 85 Units/L (5-34) H 12/17/16 06:20 Alkaline Phosphatase 194 Units/L (38-126) H 12/17/16 06:20 Serum Total Protein 5.2 g/dL (6.0-8.3) L 12/17/16 06:20 Albumin 1.4 g/dL (3.5-5.0) L 12/17/16 06:20 Globulin 3.8 g/dL (2.4-3.5) H 12/17/16 06:20 Albumin/Globulin Ratio 0.4 (1.1-2.2) L 12/17/16 06:20 Ur Specific [place] > 1.030 (1.010-1.025) H 12/15/16 22:44 Urine Protein 30 mg/dL (Neg-Trace) H 12/15/16 22:44 Urine Blood Moderate (Negative) H 12/15/16 22:44 Urine Microscopic WBC 3-5 per hpf (0-3) H 12/15/16 22:44 Ur Squamous Epith Cells Moderate per lpf (None-Few) H 12/15/16 22:44 - Head Head exam: Present: atraumatic, normal inspection, normocephalic - Eye Eye exam: Present: PERRL Pupils: Present: PERRL - ENT ENT exam: Present: mucous membranes dry - Neck Neck exam: Present: full ROM - Respiratory Respiratory exam: Present: decreased breath sounds - Expanded Respiratory Exam Location: decreased breath sounds: Left, Right, Lower - Cardiovascular Cardiovascular exam: Present: irregular rhythm (patient with ST and occasional PVC to A-Fib at times), +S1, +S2, tachycardia - Expanded Cardiovascular Exam Peripheral pulses: 1+: Femoral (L) PM, Femoral (R) PM, Posterior Tibialis (L), Posterior Tibialis (R), 2+: Carotid (L) PM, Carotid (R) PM, Radial (L), Radial ( R), Dorsalis Pedis (L) PM, Dorsalis Pedis (R) PM - GI/Abdominal GI/Abdominal exam: Present: normal bowel sounds (patient with large BMs. ), soft - Extremities Exam Extremities exam: Present: full ROM - Back Exam Back exam: Present: full ROM - Neurological Exam Neurological exam: Present: alert, oriented X3 - Psychiatric Psychiatric exam: Present: normal affect - Skin Skin exam: Present: normal color, warm Palliative Quality Palliative Quality: Screen for Code Status: Yes, Screen for Goals of Care: Yes, Screen for Pain: Yes, If Pain Regimen Started, Initiate Bowel Regimen: Yes, Screen for Nausea/Vomitting: Yes - Labs CBC & Chem 7: 12/17/16 06:20 12/17/16 06:20 Labs: Laboratory Results - last 24 hr 12/16/16 12/16/16 12/17/16 09:04 14:53 06:20 WBC RBC Hgb Hct MCV MCH MCHC RDW Plt Count MPV Immature Gran % Seg Neutrophils % Lymphocytes % Monocytes % Eosinophils % Basophils % Neutrophils # Lymphocytes # Monocytes # Eosinophils # Basophils # Sodium 132 L Potassium 3.8 Chloride 98 Carbon Dioxide 26 BUN 15 Creatinine 0.94 Est GFR ( Amer) > 60 Est GFR (Non-Af Amer) > 60 BUN/Creatinine Ratio 16 Glucose 155 H POC Glucose 106 H Calculated Osmolality 278 L Calcium 9.2 Magnesium Total Bilirubin 1.3 H D Direct Bilirubin 1.0 H Indirect Bilirubin 0.3 AST 109 H ALT 62 H Alkaline Phosphatase 199 H Serum Total Protein 5.6 L Albumin 1.6 L Globulin 4.0 H Albumin/Globulin Ratio 0.4 L TSH 1.131 Thyroxine (T4) 5.48 Vancomycin Trough 12.4 12/17/16 12/17/16 06:20 06:20 WBC 23.7 H RBC 3.01 L Hgb 8.6 L Hct 26.6 L MCV 88.4 MCH 28.6 MCHC 32.3 RDW 14.6 H Plt Count 180 MPV 11.1 Immature Gran % 2.2 Seg Neutrophils % 81.2 Lymphocytes % 7.5 Monocytes % 9.0 Eosinophils % 0.0 Basophils % 0.1 Neutrophils # 19.3 H Lymphocytes # 1.8 Monocytes # 2.1 H Eosinophils # 0.0 Basophils # 0.0 Sodium 132 L Potassium 3.8 Chloride 101 Carbon Dioxide 27 BUN 14 Creatinine 0.87 Est GFR ( Amer) > 60 Est GFR (Non-Af Amer) > 60 BUN/Creatinine Ratio 16 Glucose 99 POC Glucose Calculated Osmolality 275 L Calcium 8.8 Magnesium 0.8 L Total Bilirubin 2.3 H D Direct Bilirubin 1.8 H Indirect Bilirubin 0.5 AST 85 H ALT 51 Alkaline Phosphatase 194 H Serum Total Protein 5.2 L Albumin 1.4 L Globulin 3.8 H Albumin/Globulin Ratio 0.4 L TSH Thyroxine (T4) Vancomycin Trough - Impressions Impressions Thoracentesis Ultrasound 12/16/16 07:00 IMPRESSION: 1. Successful ultrasound guided left thoracentesis. D/ / Lee Luna MD / Lee Luna MD Interpreting Provider: Lee Luna MD Chest X-Ray 12/16/16 14:36 IMPRESSION: 1. Decrease left pleural effusion following thoracentesis with no immediate complications. 2. Otherwise, stable chest x-ray. D/ / Lee Luna MD / Lee Luna MD Interpreting Provider: Lee Luna MD - ABG Interpretation ABG results: PT/INR, D-dimer D-Dimer [id number] ng/mLFEU (0-500) H 12/15/16 12:41 Consult Discharge Plan - Plan Referrals: Domingo Morrison DO [Non-Partnered Physician] - 12/21/16 2:15 pm Raheel Cardenas DO [Primary Care Provider] - 12/22/16 2:00 pm Gerardo Kendrick MD [Partnered Physician] - 12/21/16 1:10 pm
--- NOTE | 2016-12-17 15:17 | Electrocardiograph Report ---
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
[2016-12-17] MEDS: Metoprolol XL (24 HR) Succ 50 MG TAB.ER.24H PO SCH (15:29)
[2016-12-17] MEDS: 0.9 % Sodium Chloride 1,000 ML IVC SCH (15:30)
[2016-12-17] MEDS: *HR* Heparin 5,000 UNIT/ML VIAL SQ SCH ×2 (17:05→17:10)
--- NOTE | 2016-12-17 17:20 | Event Note ---
<Raheel Cardenas - Last Filed: 12/17/16 17:13> Date of Encounter: 12/17/16 Time of Encounter: 17:13 I spoke with the patient at length as well as his sister who was present. We discussed further treatment options and the prognosis of his advanced lung cancer. I asked the patient about what were his ultimate goals for his overall care and he stated that at this point he just wants to go home and avoid the hospital. We spoke about his treatment options including furthering his cancer treatments or pursuing a more comfort-based approach. At this point the patient feels like he would no longer benefit from pursuing cancer therapy and would like to pursue comfort measures at this time. I discussed with him what hospice could offer him in terms of symptomatic relief, help him stay in his home and do everything we can to help relieve his symptoms including severe cancer-related pain. Patient states that he is interested in pursuing hospice in his home setting. The patient's sister was able to provide a list of durable medical equipment that the patient will need in the home and we will attempt her best ability to provide this to the hospice program. I spoke with the associated hospice executive director, Dr. Farrell, and updated him on the patient's wishes and we will begin the hospice referral first thing in the morning with the plan to get the patient home with hospice as soon as possible. In the meantime comfort measures will be instituted including discontinuing lab draws, blood sugar monitoring, antibiotics. Patient has been made a DNR CC. <Lorrie Dumont E - Last Filed: 12/17/16 18:52> Date of Encounter: 12/17/16 I examined this patient and reviewed laboratory, imaging and all diagnostic data. My medical decision-making was reviewed with Dr Cardenas - Resident Physician. I agree with the documented findings, disposition and treatment plan as described above
--- NOTE | 2016-12-17 18:55 | Internal Med Progress Note ---
Date of Encounter: 12/17/16 Time of Encounter: 18:53 - Assessment and plan (1) Counseling regarding goals of care Current Visit: Yes Status: Acute Assessment and plan: appreciate palliative input. Patient is DNR-CC. stop all labs. (2) Primary lung cancer with metastasis from lung to other site Current Visit: Yes Status: Chronic Assessment and plan: Progression of lung cancer. Qualifiers: Laterality: left Qualified Code(s): C34.92 - Malignant neoplasm of unspecified part of left bronchus or lung (3) Acute and chronic respiratory failure Current Visit: No Status: Acute Assessment and plan: secondary to large left pleural effusion, progression of lung cancer with mets, post-obstructive pneumonia. Patient was just discharged from our hospital yesterday after a prolonged hospitalization from 11/20 to 12/14. He was treated for sepsis due to postobstructive pneumonia E coli, large left pleural effusion status post thoracentesis with removal of 1.4 L and had palliative radiation on December 11. Palliative service was involved and he remain full code. At that time, he was recommended to enroll in hospice care due to his overall very poor prognosis; however, he declined. He got home and an hour later he developed progressive shortness of breath that continued to worsen so he came to our ED. On arrival to our ED, patient was tachycardic heart rate 140, hypoxic, tachypneic. WBC 38. D-dimer 60,689. CTA chest showed no PE, large left pleural effusion with compressive atelectasis of the left lower lobe, disease progression with interval increase in size of soft tissue mass in the left hilum, right lower lobe nodule and masslike consolation in the left upper lobe. He received IV fluids and was started on empiric antibiotics. He underwent left-sided thoracentesis with removal of 2L. Stop antibiotics since pt is transitioning to hospice. Qualifiers: Respiratory failure complication: hypoxia Qualified Code(s): J96.21 - Acute and chronic respiratory failure with hypoxia (4) Postobstructive pneumonia Current Visit: No Status: Acute Assessment and plan: plan as above. (5) Pleural effusion on left Current Visit: No Status: Acute Assessment and plan: plan as above (6) Cancer associated pain Current Visit: Yes Status: Chronic Assessment and plan: appreciate palliative input (7) CVA (cerebral vascular accident) Current Visit: No Status: Chronic Qualifiers: CVA mechanism: unspecified Qualified Code(s): I63.9 - Cerebral infarction, unspecified (8) Sepsis Current Visit: No Status: Acute Assessment and plan: secondary to post-obstructed pneumonia. SIRS: 11.6, heart rate 150, WBC 38. Cultures taken. Continue empiric antibiotics. Qualifiers: Sepsis type: sepsis due to unspecified organism Qualified Code(s): A41.9 - Sepsis, unspecified organism - Subjective Interval history: patient agreed with transitioning to hospice care in AM. - Constitutional Vitals: Temp Pulse Resp BP Pulse Ox 98.9 F 138 20 109/79 93 12/17/16 16:01 12/17/16 16:01 12/17/16 16:33 12/17/16 16:01 12/17/16 16:33 General appearance: Present: cooperative, mild distress (mild pain), A&O X 3, pleasant, answers questions appropriately - Respiratory Respiratory exam: Present: decreased breath sounds - Cardiovascular Cardiovascular exam: Present: tachycardia - GI/Abdominal GI/Abdominal exam: Present: normal bowel sounds, soft, tenderness (mild). Absent: distended - Extremities Exam Extremities exam: Absent: pedal edema - Neurological Exam Neurological exam: Present: alert, oriented X3. Absent: facial droop, speech deficit Internal Medicine: Result - Labs CBC & Chem 7: 12/17/16 06:20 12/17/16 06:20 Labs: Short CBC 12/17/16 Range/Units 06:20 WBC 23.7 H (4.3-11.1) K/mcL Hgb 8.6 L (12.9-16.9) g/dL Hct 26.6 L (37.5-50.1) % Plt Count 180 (140-400) K/mcL Neutrophils # 19.3 H (1.6-8.9) K/mcL BMP 12/16/16 12/17/16 09:04 06:20 Sodium 132 L 132 L Potassium 3.8 3.8 Chloride 98 101 Carbon Dioxide 26 27 BUN 15 14 Creatinine 0.94 0.87 Glucose 155 H 99 Calcium 9.2 8.8 Liver Function 12/16/16 12/17/16 Range/Units 09:04 06:20 Total Bilirubin 1.3 H D 2.3 H D (0.2-1.2) mg/dL Direct Bilirubin 1.0 H 1.8 H (0.0-0.5) mg/dL AST 109 H 85 H (5-34) Units/L ALT 62 H 51 (0-55) Units/L Alkaline Phosphatase 199 H 194 H (38-126) Units/L Albumin 1.6 L 1.4 L (3.5-5.0) g/dL - ABG Interpretation ABG results: PT/INR, D-dimer D-Dimer [id number] ng/mLFEU (0-500) H 12/15/16 12:41 Consult Discharge Plan - Plan Referrals: Domingo Morrison DO [Non-Partnered Physician] - 12/21/16 2:15 pm Raheel Cardenas DO [Primary Care Provider] - 12/22/16 2:00 pm Gerardo Kendrick MD [Partnered Physician] - 12/21/16 1:10 pm
[2016-12-17] MEDS ORDERED: *HR* OxyCODONE Immed Rel 5 MG TABLET PO SCH (20:00)
[2016-12-18] MEDS: *HR* OxyCODONE Immed Rel 5 MG TABLET PO PRN ×3 (04:19→16:11)
[2016-12-18] MEDS: Acetylcysteine 10% 2 ML INHSOL IH SCH ×4 (04:31→15:29)
[2016-12-18] MEDS: Ipratropium/Albuterol Neb 3 ML IH SCH ×4 (04:31→15:29)
[2016-12-18] MEDS: 0.9 % Sodium Chloride 1,000 ML IVC SCH ×2 (04:55→08:49)
[2016-12-18] MEDS: *HR* OxyCODONE ER (12 HR) 10 MG TABLET PO SCH (06:31)
[2016-12-18 07:39] VITALS: BP 102/63
[2016-12-18] MEDS ORDERED: Aminoglycoside Consult 1 EACH MC ONE (07:48)
[2016-12-18] MEDS: Acetaminophen 325 MG TABLET PO PRN (08:49)
[2016-12-18] MEDS: Metoprolol XL (24 HR) Succ 50 MG TAB.ER.24H PO SCH (08:49)
[2016-12-18] MEDS: Pantoprazole 40 MG VIAL IVP SCH (08:49)
--- NOTE | 2016-12-18 11:50 | Discharge Summary ---
Date of Encounter: 12/19/16 Time of Encounter: 11:49 - Discharge Diagnosis (1) Counseling regarding goals of care Priority: Primary Status: Acute (2) Primary lung cancer with metastasis from lung to other site Priority: Primary Status: Chronic Qualifiers: Laterality: left Qualified Code(s): C34.92 - Malignant neoplasm of unspecified part of left bronchus or lung (3) Sepsis Priority: Primary Status: Acute Qualifiers: Sepsis type: sepsis due to unspecified organism Qualified Code(s): A41.9 - Sepsis, unspecified organism (4) Acute and chronic respiratory failure Priority: Primary Status: Acute Qualifiers: Respiratory failure complication: hypoxia Qualified Code(s): J96.21 - Acute and chronic respiratory failure with hypoxia (5) Postobstructive pneumonia Priority: Primary Status: Acute (6) Pleural effusion on left Priority: Primary Status: Acute (7) Cancer associated pain Priority: Primary Status: Chronic (8) CVA (cerebral vascular accident) Priority: Secondary Status: Chronic Qualifiers: CVA mechanism: unspecified Qualified Code(s): I63.9 - Cerebral infarction, unspecified - Discharge Medications Prescriptions: LORazepam [Ativan] 0.5 mg PO Q4HR #10 tablet Prochlorperazine Maleate [Compazine] 10 mg PO Q6HR PRN #60 tablet PRN Reason: Nausea Morphine Sulfate SR (12 HR) [MS Contin] 1 tab PO Q12HR #10 tab Magnesium Oxide [Mag-Ox] 400 mg PO BID #60 tab Morphine Oral CONC [Roxanol] 0.25 - 1 ml PO Q1H PRN #30 ml PRN Reason: pain or dyspnea OxyCODONE Immed Rel [Roxicodone 5 MG] 10 mg PO Q2H PRN #30 tab PRN Reason: Severe Pain Polyethylene Glycol 3350 [MiraLAX] 17 gm PO DAILY #30 Sennosides/Docusate Sodium [Senna Plus] 2 each PO BID #120 tab Home Medications: Buspirone HCl [Buspar] 7.5 mg PO BID 04/21/16 [History] Ipratropium/Albuterol Neb [Duoneb] 3 ml IH Q6HR PRN 07/21/16 [History] Metoprolol Succinate 100 mg PO DAILY 09/05/16 [History] Ondansetron [Zofran] 8 mg PO Q8HR PRN #90 tablet 09/28/16 [Rx] Bisacodyl [Dulcolax] 5 mg PO DAILY PRN tab 12/14/16 [Rx] GuaiFENesin/Dextromethorphan [Mucinex Dm] 1 each PO BID 12/14/16 [Rx] Ipratropium/Albuterol Neb [Duoneb] 3 ml IH [id number] #30 inh 12/14/16 [Rx] Nicotine Patch [Nicoderm] 21 mg TD DAILY #30 patch.td24 12/14/16 [Rx] LORazepam [Ativan] 0.5 mg PO Q4HR #10 tablet 12/18/16 [Rx] Magnesium Oxide [Mag-Ox] 400 mg PO BID #60 tab 12/18/16 [Rx] Morphine Oral CONC [Roxanol] 0.25 - 1 ml PO Q1H PRN #30 ml 12/18/16 [Rx] Morphine Sulfate SR (12 HR) [MS Contin] 1 tab PO Q12HR #10 tab 12/18/16 [Rx] OxyCODONE Immed Rel [Roxicodone 5 MG] 10 mg PO Q2H PRN #30 tab 12/18/16 [Rx] Polyethylene Glycol 3350 [MiraLAX] 17 gm PO DAILY #30 12/18/16 [Rx] Prochlorperazine Maleate [Compazine] 10 mg PO Q6HR PRN #60 tablet 12/18/16 [Rx] Sennosides/Docusate Sodium [Senna Plus] 2 each PO BID #120 tab 12/18/16 [Rx] Allergies/Adverse Reactions: Allergies doxycycline Allergy (Verified 10/22/16 16:08) Rash hydrocodone [From Vicodin] Allergy (Verified 10/22/16 16:08) Rash lidocaine Allergy (Verified 10/22/16 16:08) Rash propoxyphene [From Darvocet-N] Allergy (Verified 10/22/16 16:08) Rash morphine patches Allergy (Intermediate, Uncoded 10/22/16 16:08) Rash Procedures/tests Complete & Pending: Procedures Performed prior 72 hours Category Date Time Status ECG 12 lead ECG [ECG] Routine Y 12/16/16 04:29 Completed ECG 12 lead ECG [ECG] Routine Y 12/16/16 23:15 Completed Date of admission: 12/15/16 22:54 Primary care physician: Raheel Cardenas, Consults: 12/16/16 08:33 Consult to Palliative Care [CONS] Routine Comment: Consulting Provider: Palliative Care Batsheva Reason for Consult: lung cancer with mets Call Completed: Yes 12/17/16 10:10 Consult to Physical Therapy [CONS] Routine Comment: Evaluate, develop and implement POC Reason for Consult: evaluate needs for DC, possible ECF/swing bed placement 12/17/16 10:11 Consult to Occupational Therapy [CONS] Routine Comment: Evaluate, develop and implement POC Reason for Consult: evaluate needs for DC, possible ECF/swing bed placement - Patient Status Disposition: Home Health Service Condition: Fair Functional capacity at discharge: bed bound Overall status at discharge: patient is not back to baseline - Discharge Instructions Instructions: Lorazepam (By mouth), Morphine, Rapid Release (By mouth), Oxycodone, Rapid Release (By mouth) Follow Up With: Gerardo Kendrick MD [Partnered Physician] - 12/21/16 1:10 pm - Diet and Activity Activity: wear oxygen at all times Diet: regular diet Interval History: Patient is ready to go home with hospice. Hospital course: Mr. Bliss is a 56 year old male with past medical history of metastatic lung cancer with metastases to the bones, and liver who presented with a chief complaint of progressive shortness of breath. Patient was just discharged from our hospital one day before this presentation, he had a prolonged hospitalization from 11/20 to 12/14. He was treated for sepsis due to postobstructive pneumonia E coli, large left pleural effusion status post thoracentesis with removal of 1.4 L and had palliative radiation on December 11. He got home and an hour later he developed progressive shortness of breath that continued to worsen so he came to our ED. CTA chest showed no PE, large left pleural effusion with compressive atelectasis of the left lower lobe , disease progression with interval increase in size of soft tissue mass in the left hilum, right lower lobe nodule and masslike consolation in the left upper lobe. He received IV fluids and was started on empiric antibiotics. He underwent left-sided thoracentesis with removal of 2L. patient wished to be transitioned to hospice care at home. he was made DNR comfort care and all antibiotics were stopped. PLAN hospice at home - Time Spent with Patient Total time spent providing and/or coordinating discharge services: - Constitutional Vitals: Temp Pulse Resp BP Pulse Ox 100.4 F H 143 20 102/63 96 12/18/16 07:36 12/18/16 08:41 12/18/16 11:23 12/18/16 11:23 12/18/16 11:23 General appearance: Present: cooperative, mild distress (mild pain), A&O X 3, pleasant, answers questions appropriately - Neck Neck exam general surgery: Present: supple, trachea midline. Absent: lymphadenopathy - Respiratory Respiratory exam: Present: decreased breath sounds - Cardiovascular Cardiovascular exam: Present: tachycardia - GI/Abdominal GI/Abdominal exam: Present: soft, tenderness (Diffuse tenderness.). Absent: distended - Extremities Exam Extremities exam: Absent: pedal edema - Back Exam Back exam: Absent: CVA tenderness (L), CVA tenderness (R) - Neurological Exam Neurological exam: Present: alert. Absent: facial droop, speech deficit
--- NOTE | 2016-12-18 11:57 | Palliative Progress Note ---
Date of Encounter: 12/18/16 Time of Encounter: 11:25 - Assessment and plan (1) Cancer associated pain Current Visit: Yes Status: Chronic Assessment and plan: Mr. Bliss will be discharged home with hospice care. Will transition to [facility] as oxyCONTIN is not on the hospice formulary. Mr. Bliss has had IV morphine in the past and tolerated well. His prior reaction to morphine patches was skin irritation. Continue oxycodone for breakthrough pain. Rx completed and faxed to pharmacy. (2) Counseling regarding advanced directives and goals of care Current Visit: Yes Status: Acute Assessment and plan: Mr. Bliss will be discharged home with [facility] services today. Advanced directives completed including DNR state form. Discharge home is pending equipment delivery and delivery of medications. (3) Therapeutic opioid induced constipation Current Visit: No Status: Acute Assessment and plan: Senna BID and Miralax PRN. (4) Primary lung cancer with metastasis from lung to other site Current Visit: Yes Status: Chronic Qualifiers: Laterality: left Qualified Code(s): C34.92 - Malignant neoplasm of unspecified part of left bronchus or lung (5) Acute on chronic respiratory failure with hypoxia and hypercapnia Current Visit: No Status: Acute (6) Postobstructive pneumonia Current Visit: No Status: Acute - Time Spent With Patient Total time spent is greater than 50% in coordination of care (as documented) at patient's floor/unit and/or counseling patient: - Subjective Interval history: Mr. Bliss is eager to be discharged home. He reports his pain is tolerable and breathing has improved following the thoracentesis. - Constitutional Vitals: Abnormal lab results WBC 23.7 K/mcL (4.3-11.1) H 12/17/16 06:20 RBC 3.01 M/mcL (4.19-5.50) L 12/17/16 06:20 Hgb 8.6 g/dL (12.9-16.9) L 12/17/16 06:20 Hct 26.6 % (37.5-50.1) L 12/17/16 06:20 RDW 14.6 % (11.5-14.5) H 12/17/16 06:20 Neutrophils # 19.3 K/mcL (1.6-8.9) H 12/17/16 06:20 Monocytes # 2.1 K/mcL (0.0-1.3) H 12/17/16 06:20 Toxic Vacuolation Present (Not Present) A 12/15/16 12:41 D-Dimer [id number] ng/mLFEU (0-500) H 12/15/16 12:41 VBG pH 7.46 pH Units (7.32-7.42) H 12/15/16 12:50 VBG pCO2 40 mmHg (41-51) L 12/15/16 12:50 VBG pO2 57 mmHg (25-40) H 12/15/16 12:50 VBG HCO3 28.4 mEq/L (21-27) H 12/15/16 12:50 Sodium 132 mEq/L (136-145) L 12/17/16 06:20 Calculated Osmolality 275 (280-300) L 12/17/16 06:20 Magnesium 0.8 mg/dL (1.6-2.6) L 12/17/16 06:20 Total Bilirubin 2.3 mg/dL (0.2-1.2) H D 12/17/16 06:20 Direct Bilirubin 1.8 mg/dL (0.0-0.5) H 12/17/16 06:20 AST 85 Units/L (5-34) H 12/17/16 06:20 Alkaline Phosphatase 194 Units/L (38-126) H 12/17/16 06:20 Serum Total Protein 5.2 g/dL (6.0-8.3) L 12/17/16 06:20 Albumin 1.4 g/dL (3.5-5.0) L 12/17/16 06:20 Globulin 3.8 g/dL (2.4-3.5) H 12/17/16 06:20 Albumin/Globulin Ratio 0.4 (1.1-2.2) L 12/17/16 06:20 Ur Specific [place] > 1.030 (1.010-1.025) H 12/15/16 22:44 Urine Protein 30 mg/dL (Neg-Trace) H 12/15/16 22:44 Urine Blood Moderate (Negative) H 12/15/16 22:44 Urine Microscopic WBC 3-5 per hpf (0-3) H 12/15/16 22:44 Ur Squamous Epith Cells Moderate per lpf (None-Few) H 12/15/16 22:44 General appearance: Present: cooperative, no acute distress Exam: 56 year old male, appropriate and interactive - Eye Eye exam: Present: EOMI - ENT ENT exam: Present: mucous membranes moist - Respiratory Respiratory exam: Present: prolonged expiratory phase, wheezes. Absent: tachypnea - Cardiovascular Cardiovascular exam: Present: RRR - GI/Abdominal GI/Abdominal exam: Present: normal bowel sounds, soft. Absent: distended, firm , tenderness - Extremities Exam Extremities exam: Absent: pedal edema - Neurological Exam Neurological exam: Present: alert, oriented X3, no focal deficits, strengths equal and symetr throughout - Psychiatric Psychiatric exam: Absent: agitated, anxious - Skin Skin exam: Present: dry, normal color, warm Palliative Quality Palliative Quality: Screen for Code Status: Yes, Screen for Goals of Care: Yes, Screen for Pain: Yes, If Pain Regimen Started, Initiate Bowel Regimen: Yes, Screen for Nausea/Vomitting: Yes Code Status: 12/17/16 17:12 CODE [Resuscitation Status: Active] [RES] Routine Comment: Resuscitation Status: DNR-Comfort Care - Labs CBC & Chem 7: 12/17/16 06:20 12/17/16 06:20 Labs: Laboratory Results - last 24 hr 12/16/16 12/17/16 12/17/16 20:13 00:32 02:37 POC Glucose 135 H 80 72 - ABG Interpretation ABG results: PT/INR, D-dimer D-Dimer 48632 ng/mLFEU (0-500) H 12/15/16 12:41 Consult Discharge Plan - Plan Referrals: Gerardo Kendrick MD [Partnered Physician] - 12/21/16 1:10 pm Prescriptions: LORazepam [Ativan] 0.5 mg PO Q4HR #10 tablet Morphine Sulfate SR (12 HR) [MS Contin] 1 tab PO Q12HR #10 tab Morphine Oral CONC [Roxanol] 0.25 - 1 ml PO Q1H PRN #30 ml PRN Reason: pain or dyspnea OxyCODONE Immed Rel [Roxicodone 5 MG] 10 mg PO Q2H PRN #30 tab PRN Reason: Severe Pain
--- NOTE | 2016-12-18 14:43 | Event Note ---
Date of Encounter: 12/18/16 Time of Encounter: 14:39 Hospice Lathe Puller Certification of Terminal Illness: Hospice Benefit Period Start:12/18/2016 Hospice Benefit Period End:+90 days Palliative Performance Scale (PPS):35% History:metatstic cancer of lung no further trreatment is available due to comorbidities including protein malnutrition copd and sepsis. pt does not desire any more agressive therapy, therefore i bleieve These findings support a life expectancy of six months or less. I attest that I have composed the above narrative based on my review of Tommy Bliss medical records, or my examination of the patient. Physician Name: Patrick Farrell Lathe Puller, [facility], [facility] Palliative care Consultation Service
--- NOTE | 2016-12-18 15:08 | Physician Discharge Referral ---
Home Health/Hosp Referral Info Transfer to: Hospice Attending Provider: lisa Provider in Charge Post Discharge: PCP - Diagnosis (1) Counseling regarding goals of care Status: Acute (2) Primary lung cancer with metastasis from lung to other site Status: Chronic (3) Acute and chronic respiratory failure Status: Acute (4) Postobstructive pneumonia Status: Acute (5) Pleural effusion on left Status: Acute (6) Cancer associated pain Status: Chronic (7) CVA (cerebral vascular accident) Status: Chronic (8) Sepsis Status: Acute - Respiratory Orders Smoking Cessation: Smoking cessation has been advised. For more information, call the [place] Tobacco Quit Line at 1-024-MWZU-NOW. - Transfer Medications Prescriptions: LORazepam [Ativan] 0.5 mg PO Q4HR #10 tablet Morphine Sulfate SR (12 HR) [MS Contin] 1 tab PO Q12HR #10 tab Morphine Oral CONC [Roxanol] 0.25 - 1 ml PO Q1H PRN #30 ml PRN Reason: pain or dyspnea OxyCODONE Immed Rel [Roxicodone 5 MG] 10 mg PO Q2H PRN #30 tab PRN Reason: Severe Pain Home Medications: Buspirone HCl [Buspar] 7.5 mg PO BID 04/21/16 [History] Gabapentin 600 mg PO TID 04/21/16 [History] SUMAtriptan Succinate [Imitrex] 100 mg PO DAILY PRN 04/21/16 [History] lamoTRIgine [Lamictal] 75 mg PO BID 04/21/16 [History] Ipratropium/Albuterol Neb [Duoneb] 3 ml IH Q6HR PRN 07/21/16 [History] Tiotropium [Spiriva] 18 mcg IH DAILY 07/21/16 [History] Metoprolol Succinate 100 mg PO DAILY 09/05/16 [History] Albuterol Sulfate [Albuterol Inhaler] 2 puff IH Q6H PRN 09/08/16 [History] Zolpidem [Ambien] 5 mg PO HS 09/14/16 [History] Folic Acid 1 mg PO DAILY #30 tablet 09/28/16 [Rx] Loratadine [Claritin] 10 mg PO AD #60 tablet 09/28/16 [Rx] Ondansetron [Zofran] 8 mg PO Q8HR PRN #90 tablet 09/28/16 [Rx] Prochlorperazine Maleate [Compazine] 10 mg PO Q6HR PRN #60 tablet 09/28/16 [Rx] Oxymetazoline [Afrin] 15 spray NS AD PRN #1 bottle 10/06/16 [Rx] Aspirin 81 mg PO DAILY 11/20/16 [History] OLANZapine [Zyprexa] 2.5 mg PO DAILY 11/20/16 [History] Umeclidinium [place] [Incruse Ellipta] 62.5 mcg IH DAILY 11/20/16 [History] Acetaminophen [Tylenol] 650 mg PO Q6HR tab 12/14/16 [Rx] Bisacodyl [Dulcolax] 5 mg PO DAILY PRN tab 12/14/16 [Rx] GuaiFENesin/Dextromethorphan [Mucinex Dm] 1 each PO BID 12/14/16 [Rx] Ipratropium/Albuterol Neb [Duoneb] 3 ml IH [id number] #30 inh 12/14/16 [Rx] Magnesium Oxide [Mag-Ox] 400 mg PO BID tab 12/14/16 [Rx] Nicotine Patch [Nicoderm] 21 mg TD DAILY #30 patch.td24 12/14/16 [Rx] Polyethylene Glycol 3350 [MiraLAX] 17 gm PO DAILY 12/14/16 [Rx] Sennosides/Docusate Sodium [Senna Plus] 2 each PO BID tab 12/14/16 [Rx] amLODIPine [Norvasc] 5 mg PO BID tab 12/14/16 [Rx] LORazepam [Ativan] 0.5 mg PO Q4HR #10 tablet 12/18/16 [Rx] Morphine Oral CONC [Roxanol] 0.25 - 1 ml PO Q1H PRN #30 ml 12/18/16 [Rx] Morphine Sulfate SR (12 HR) [MS Contin] 1 tab PO Q12HR #10 tab 12/18/16 [Rx] OxyCODONE Immed Rel [Roxicodone 5 MG] 10 mg PO Q2H PRN #30 tab 12/18/16 [Rx] Allergies/Adverse Reactions: Allergies doxycycline Allergy (Verified 10/22/16 16:08) Rash hydrocodone [From Vicodin] Allergy (Verified 10/22/16 16:08) Rash lidocaine Allergy (Verified 10/22/16 16:08) Rash propoxyphene [From Darvocet-N] Allergy (Verified 10/22/16 16:08) Rash morphine patches Allergy (Intermediate, Uncoded 10/22/16 16:08) Rash Certification: Further, I certify that my clinical findings support that this patient is homebound (i.e. absences from home require considerable and taxing effort and are for medical reasons or christian services or infrequently or short duration when for other reasons) because: Homebound Reason: Patient requires assistance of a person or device to safely leave home, Leaving home requires considerable and taxing effort due to condition, Severity of cardiac or pulmonary status limits activity tolerance Attestation: My signature below is to certify that this patient is under my care and that I, or nurse practitioner, or a physician's trust operations assistant working with me, has a face-to -face encounter with this patient.
--- NOTE | 2016-12-18 15:52 | Physician Discharge Referral ---
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 For more information, call the [employer] Tobacco Quit Line at 0-786-VVYX-NOW. - Diet/Nutrition Diet/Nutrition Orders: Regular - Activity Activity Orders: Bedrest - Services Needed Following services are medically necessary services: Nursing, Home Health Aide - Transfer Medications Prescriptions: LORazepam [Ativan] 0.5 mg PO Q4HR #10 tablet Prochlorperazine Maleate [Compazine] 10 mg PO Q6HR PRN #60 tablet PRN Reason: Nausea Morphine Sulfate SR (12 HR) [MS Contin] 1 tab PO Q12HR #10 tab Magnesium Oxide [Mag-Ox] 400 mg PO BID #60 tab Morphine Oral CONC [Roxanol] 0.25 - 1 ml PO Q1H PRN #30 ml PRN Reason: pain or dyspnea OxyCODONE Immed Rel [Roxicodone 5 MG] 10 mg PO Q2H PRN #30 tab PRN Reason: Severe Pain Polyethylene Glycol 3350 [MiraLAX] 17 gm PO DAILY #30 Sennosides/Docusate Sodium [Senna Plus] 2 each PO BID #120 tab Home Medications: Buspirone HCl [Buspar] 7.5 mg PO BID 04/21/16 [History] Ipratropium/Albuterol Neb [Duoneb] 3 ml IH Q6HR PRN 07/21/16 [History] Metoprolol Succinate 100 mg PO DAILY 09/05/16 [History] Ondansetron [Zofran] 8 mg PO Q8HR PRN #90 tablet 09/28/16 [Rx] Bisacodyl [Dulcolax] 5 mg PO DAILY PRN tab 12/14/16 [Rx] GuaiFENesin/Dextromethorphan [Mucinex Dm] 1 each PO BID 12/14/16 [Rx] Ipratropium/Albuterol Neb [Duoneb] 3 ml IH [id number] #30 inh 12/14/16 [Rx] Nicotine Patch [Nicoderm] 21 mg TD DAILY #30 patch.td24 12/14/16 [Rx] LORazepam [Ativan] 0.5 mg PO Q4HR #10 tablet 12/18/16 [Rx] Magnesium Oxide [Mag-Ox] 400 mg PO BID #60 tab 12/18/16 [Rx] Morphine Oral CONC [Roxanol] 0.25 - 1 ml PO Q1H PRN #30 ml 12/18/16 [Rx] Morphine Sulfate SR (12 HR) [MS Contin] 1 tab PO Q12HR #10 tab 12/18/16 [Rx] OxyCODONE Immed Rel [Roxicodone 5 MG] 10 mg PO Q2H PRN #30 tab 12/18/16 [Rx] Polyethylene Glycol 3350 [MiraLAX] 17 gm PO DAILY #30 12/18/16 [Rx] Prochlorperazine Maleate [Compazine] 10 mg PO Q6HR PRN #60 tablet 12/18/16 [Rx] Sennosides/Docusate Sodium [Senna Plus] 2 each PO BID #120 tab 12/18/16 [Rx] Allergies/Adverse Reactions: Allergies doxycycline Allergy (Verified 10/22/16 16:08) Rash hydrocodone [From Vicodin] Allergy (Verified 10/22/16 16:08) Rash lidocaine Allergy (Verified 10/22/16 16:08) Rash propoxyphene [From Darvocet-N] Allergy (Verified 10/22/16 16:08) Rash morphine patches Allergy (Intermediate, Uncoded 10/22/16 16:08) Rash Certification: Further, I certify that my clinical findings support that this patient is homebound (i.e. absences from home require considerable and taxing effort and are for medical reasons or caodaism services or infrequently or short duration when for other reasons) because: Homebound Reason: Patient requires assistance of a person or device to safely leave home, Leaving home requires considerable and taxing effort due to condition, Severity of cardiac or pulmonary status limits activity tolerance Attestation: My signature below is to certify that this patient is under my care and that I, or nurse practitioner, or a physician's insurance claims assistant working with me, has a face-to -face encounter with this patient.
== END 2016-12-18 17:08 | disposition home health service (06) | DRG 720 ==
LOC: 2ANU 11:29 → EMEROO 11:29 → 2ANU 19:06 → SUATTDRO 22:54 → 2NNU 12-17 05:23
PROVIDERS: ADMIT Internal Medicine; ATTEND Internal Medicine